=== PATIENT | female | born 1950 | race Caucasian/White ===

== ENCOUNTER → 2017-11-12 15:27 | Outpatient (CLI) | payer MEDICARE, BC, SELFPAY ==
--- NOTE | 2017-11-12 15:33 | HPBI_ITS ---
MAMMOGRAPHY - BILATERAL SCREENING REASON FOR EXAM: Female, 66 years old. Routine annual screening examination. PERTINENT HISTORY: Non-contributory. Prior left axillary node excision due to skin cancer. TECHNIQUE: Digital bilateral breast darcy (3D mammographic acquisition) in the CC and MLO projections. 2-D mediolateral oblique (MLO) and craniocaudad (CC) views of both breasts were obtained. CAD: Full Field Digital Mammography with Computer Added Detection was performed. COMPARISON: Comparison is made with prior study dated August 20, 2016 and August 19, 2015. FINDINGS: Breast Composition: The breasts are heterogeneously dense, which may obscure small masses. There are no dominant masses or suspicious calcifications. There is deformity of the axillary region of the left breast in keeping with the history of left axillary node dissection. Of the left axillary region No other significant abnormalities are identified. HPBI/SCREENING MAMM (CAD), BILAT IMPRESSION: Stable bilateral screening mammogram. Yearly follow-up mammogram recommended. (A) ASSESSMENT CATEGORY: BIRADS Category 2: Benign. A letter regarding these results will be sent to the patient by the facility within 30 days. Approximately 10% of breast cancers are not detected by mammography. A normal mammogram should not delay biopsy of a clinically suspicious abnormality. [id number] Electronically Signed: Sergio Yang MD at 8:12 EDT Tel [phone], Service support ,
== END ==
PROVIDERS: Family Provider Internal Medicine; PCP Internal Medicine; Visit Provider Internal Medicine
DX: Z12.31 Encounter for screening mammogram for malignant neoplasm of breast (principal); Z78.0 Asymptomatic menopausal state
CPT/HCPCS: 77063; 77067

== ENCOUNTER 2017-11-29 07:01 | Day surgery (SDC) | payer MEDICARE, BC, SELFPAY ==
--- NOTE | 2017-11-29 | GASB_PTH ---
PATIENT: NAN BRUSH LOC: EN U#:[id number] AGE/SX: 66/F ROOM: RE11/29/[address]: Dr. Madi Morrell MD : 1950 BED: DIS: 11/29/2017 SPEC #: [id number] RECD: 11/29/17 11:43 STATUS: TOMMY DONTAE #: [id number] TRENA: 11/29/17 00:[address]: Madi Morrell DEPT: SURGICAL PATHOLOGY RECD BY: Akin Dale ENTERED: 11/29/17 11:43 SP TYPE: Gastric Bx OTHR DR: Dr. Nikky Tabor, Tissues: Gastric mucous membrane Procedures: Surgery Specimen Level IV HEADER OPERATION: EGD with biopsy PRE-OP DIAGNOSIS: Eosinophilic esophagitis TISSUE SUBMITTED: Gastric polyp biopsy MICROSCOPIC DIAGNOSIS Gastric polyp, biopsy: Fundic gland polyp. See comment. RIGOBERTO:beba [id number] COMMENT Immunohistochemistry for Helicobacter pylori can be performed if clinically indicated. Please notify the Laboratory if it is needed. MICROSCOPIC DESCRIPTION Slides are reviewed. GROSS DESCRIPTION Received in fixative is one container labeled with the patient's name and designated gastric polyp biopsy. The specimen consists of one irregular fragment of light miguel soft tissue that measures 0.4 x 0.3 x 0.1 cm. The specimen is totally submitted in one cassette. / SJ:beba 11/29/17 TC:5 CPT: 62792
[2017-11-29 07:37] VITALS: BP 140/72; PULSE 71; RESP 16; TEMP 36.8; O2SAT 96; BMI 27.3
--- NOTE | 2017-11-29 09:05 | PCM.OPRPT ---
Problem List (1) Eosinophilic esophagitis Status: Acute (2) Colon cancer screening Status: Acute Report of Operation Date of Procedure: 11/29/17 Pre-Operative Diagnosis: k20.0 eosinophilic esophagitis. z12.11 encounter for screening colonoscopy Post-Operative Diagnosis: 4323 esophagogastroduodenoscopy [place] biopsy. 06[address] colonoscopy Type of Anesthesia:: MAC Description of Procedure: Patient was brought into the endoscopy suite back of her throat was sprayed with Cetacaine spray. She was given a bite-block. She was placed in the left lateral decubitus position. She was given graded anesthesia. Scope was inserted in the back of the oropharynx and directed down through the esophagus into the stomach and into the duodenum without difficulty. Operative findings: 1. Duodenum: Normal appearance no mass lesions no ulcerations no signs of inflammation. Pylorus was completely patent. 2. Stomach: Multiple fundic gland polyps were identified a biopsy of 1 of these was obtained. Rest of the stomach looked normal there was no signs of esophagitis there is no signs of a hiatal hernia. 3. Esophagus: Normal appearance no mass lesions no signs of esophagitis no hiatal hernia Z line was at 39 cm. Colonoscope was inserted into the rectum. The scope was directed through the sigmoid colon, descending colon, transverse colon, ascending colon, to the cecum without difficulty. Operative findings: 1. Cecum: Normal appearance no mass lesions normal ileocecal valve. 2. Ascending colon: Normal appearance no mass lesions. 3. Transverse colon: Normal appearance no mass lesions. 4. Descending colon: Normal appearance no mass lesions. 5. Sigmoid colon: Normal appearance no mass lesions scattered diverticuli were identified. 6. Rectum: Normal appearance no mass lesions retroflexion showed internal hemorrhoids the scope was withdrawn digital rectal exam was performed showing no masses within the anus. Patient will need to have another colonoscopy in 10 years - Admit VTE Documentation VTE Present on Admission: No VTE Mechan Device Prophylaxis: None VTE Pharm Prophylaxis ordered?: No Reason prophylaxis not ordered:: Treatment Not Indicated
[2017-11-29 09:09] VITALS: BP 114/64; BP 140/72; PULSE 73; RESP 18; TEMP 36.6; O2SAT 97
[2017-11-29 09:10] VITALS: BP 119/70; BP 140/72; PULSE 74; RESP 18; O2SAT 98
[2017-11-29 09:15] VITALS: BP 120/66; BP 140/72; PULSE 70; RESP 18; O2SAT 97
[2017-11-29 09:20] VITALS: BP 124/71; BP 140/72; PULSE 64; RESP 18; TEMP 36.7; O2SAT 97
[2017-11-29 09:35] VITALS: BP 140/72
== END 2017-11-29 09:51 | disposition home or self-care (01) ==
LOC: EN 07:02 → AC 07:04
PROVIDERS: Family Provider Internal Medicine; PCP Internal Medicine; Visit Provider Surgery
PROC: 0DJD8ZZ Inspection of Lower Intestinal Tract, Via Natural or Artificial Opening Endoscopic (ICD-10-PCS; CPT 45378; principal; 2017-11-29 08:40)
DX: Z12.11 Encounter for screening for malignant neoplasm of colon (principal); K20.0 Eosinophilic esophagitis; K31.7 Polyp of stomach and duodenum; K64.8 Other hemorrhoids; I10 Essential (primary) hypertension; K21.9 Gastro-esophageal reflux disease without esophagitis; Z78.0 Asymptomatic menopausal state; Z79.899 Other long term (current) drug therapy; Z85.820 Personal history of malignant melanoma of skin
CPT/HCPCS: 43239; G0121; 88305; J7120

== ENCOUNTER → 2018-08-23 10:02 | Outpatient (CLI) | payer MEDICARE, BC, SELFPAY ==
--- NOTE | 2018-08-23 10:08 | BD_ITS ---
STUDY: DUAL ENERGY X-RAY ABSORPTIOMETRY / DXA REASON FOR EXAM: Female, 67 years old. The patient is postmenopausal. No loss of height. TECHNIQUE: Bone Mineral Density (BMD) measurements of lumbar spine and bilateral hips were obtained. COMPARISON: Comparison is made with prior study dated August 20, 2016. FINDINGS: Lumbar Spine (L1-L4): g/cm2 (1.062) / T-score (-0.9) / Z-score (0.7) Findings are suggestive of normal bone density with a low fracture risk. Left Femur Total: g/cm2 (0.936) / T-score (-0.6) / Z-score (0.8) Left Femoral Neck: g/cm2 (0.890) / T-score (-1.1) / Z-score (0.6) Right Femur Total: g/cm2 (0.974) / T-score (-0.3) / Z-score (1.1) Right Femoral Neck: g/cm2 (0.854) / T-score (-1.3) / Z-score (0.3) The T-Scores on the most recent prior examination were: Lumbar Spine (L1-L4): There has been worsening of bone density since the previous examination. Left Femur Total: which represents a worsening of 1.2%. Right Femur Total: which represents a worsening of 1.2%. BD/Dexa Bone Density Study IMPRESSION: The patient is considered osteopenic as outlined below according to World Carroll Organization (WHO) criteria with a low fracture risk. There has been worsening of bone density since the previous examination. Reference Information: The T-score is the number of standard deviations above or below the standard which is normal for young adults at their peak bone mineral density. The World Health Organization (WHO) interprets the T-scores as follows: Above -1 Normal bone density Between -1 and -2.5 Osteopenia Equal to / or below -2.5 Osteoporosis As a practical clinical guideline, osteopenia may be graded as follows: Mild -1 through -1.5 Moderate -1.6 through -2.0 Severe -2.1 through -2.4 The Z-score is the number of standard deviations above or below age-matched controls. A Z-score of less than -1.5 would be considered abnormal. References: 1. NIH Osteoporosis and Related Bone Diseases http://www.osteo.org 2. International Society for Clinical Densitometry http://www.iscd.org 3. National Osteoporosis Foundation http://www.nof.org Electronically Signed: Sergio Yang MD at 14:18 EST Tel [phone], Service support ,
--- OUTSIDE RECORDS SUMMARY | 2018-11-24 17:15 | XMS RPT_ITS | Continuity of Care Document ---
:1950 Author Organization [facility] Address [facility] [address] Phone Care Team Providers Name Role Phone Nikky Tabor DO Unavailable Yoanna NEELY, Onofre Unavailable Nadja NEELY, Madi Zaragoza Unavailable Cece Santillan Unavailable Unavailable RAFAT Rivera Unavailable Unavailable Asuncion PATRICIA, Kasie Unavailable Kathya Deras Unavailable Unavailable Unavailable Unavailable Problems Name Dates Details Acute bronchitis (J20.9, 466.0) Comments: with bronchospasm Status: Active Acute bronchitis due to other specified organisms (J20.8, 466.0) Status: Active BMI 27.0-27.9,adult (Z68.27, V85.23) Status: Active Bronchitis (J40, 490) Comments: august 20 2016: off and on cough, fever(warm) , chills.August 30: cough, getting worse, yellow, some green.Denies fever,SOB, whheze, runny nose, sorethroat, body ache, sinus aches, ear aches, rash, asthma/COPD. Status: Active Cough (R05, 786.2) Status: Active Deliveries (Parity) Comments: 2 Status: Active Encounter for annual general medical examination with abnormal findings in adult (Z00.01, V70.0) Status: Active Encounter for health maintenance examination with abnormal findings (Z00.01, V70.0) Comments: 2-16 new to medicare reviewed with patient all tests, answered all questions, need flu and pneumonia updated, colonoscopy 08-14-14, Mammogram 08-19-15, [facility] Dr. Lovett pelvic , pap was 2013, whisper test WNL, mini mental= 29/30 Status: Active Encounter for screening for malignant neoplasm of colon (Renamed from Special screening for malignant neoplasms, colon) (Z12.11, V76.51) Comments: Dr. Dill did previous colonoscopy and EGD, patient did not want to return there. Included is Dr. Dill's exam from 2013. Status: Active Encounter for screening mammogram for breast cancer (Renamed from Encounter for screening mammogram for malignant neoplasm of breast) (Z12.31, V76.12) Status: Active Eosinophilic esophagitis (K20.0, 530.13) Comments: do EGD q 6yrs- 2011 Status: Active Esophagitis, eosinophilic (K20.0, 530.13) Status: Active External hemorrhoid (K64.4, 455.3) Status: Active Fibromyalgia (M79.7, 729.1) 1996 Comments: pelligreno 3 yrs ago(2014). not anymore Status: Active GERD (gastroesophageal reflux disease) (K21.9, 530.81) Status: Active Hyperglycemia (R73.9, 790.29) Comments: pt currently doing diet and exercise -- cut back alot of flour and sugardo haic later if still up next fu Status: Active Hypertension, benign (I10, 401.1) Comments: does not check BP at home Status: Active Lymphedema, limb (I89.0, 457.1) Comments: stable on left arm Status: Active Need for prophylactic vaccination and inoculation against influenza (Z23, V04.81) Status: Active Need for prophylactic vaccination and inoculation against influenza (Renamed from Need for immunization against influenza) (Z23, V04.81) Status: Active Need for prophylactic vaccination with Streptococcus pneumoniae (Pneumococcus) and Influenza vaccines (Z23, V06.6) Status: Active Nonsmoker (Z78.9, V49.89) Status: Active Post-menopausal (Z78.0, V49.81) Status: Active Pregnancies () Comments: 2 Status: Active Subclinical hypothyroidism (E03.9, 244.8) Status: Active Unspecified Diagnosis Status: Active Unspecified Diagnosis Status: Active Vaginal discharge (N89.8, 623.5) Status: Active Vitamin D deficiency (E55.9, 268.9) Status: Active Medications Name Dates Details Calan SR 180 MG Oral Tablet Extended Release 1 (one) Tablet ER Tablet ER qd for 0 days Quantity: 90 {Tablet} Refills: 3 Ordered:19-May-2018 Kathy Rivera LPN Start : 19-May-2018 Active CALCIUM, 600MG (Oral Tablet) 2 (two) Tablet QD for 0 days Quantity: 60 {Tablet} Refills: 0 Ordered:12-May-2013 Felisha Solorzano MD Start : 12-May-2013 Active Cheratussin AC 100-10 MG/5ML Oral Syrup 4 Milliliter q 6 hr prn for 0 days Quantity: 120 {Milliliter} Refills: 0 Ordered:14-Jun-2018 Samantha Roland CNP Start : 14-Jun-2018 Active Comments:ninety ml Ibuprofen 800 MG Oral Tablet 1 Tablet tid/ prn with food for 90 days Quantity: 180 {Tablet} Refills: 3 Ordered:16-Nov-2017 Conrad Tabor DO, DO, Kathleen Start : 16-Nov-2017 Active Levaquin 500 MG Oral Tablet 1 Tablet QD for 7 days Quantity: 7 {Tablet} Refills: 0 Ordered:14-Jun-2018 Samantha Roland CNP Start : 14-Jun-2018 Active Loratadine 10 MG Oral Tablet 1 (one) Tablet Tablet qd prn for allergies for 0 days Quantity: 30 {Tablet} Refills: 3 Ordered:19-May-2016 Onofre Lenz MD Start : 19-May-2016 Active Omeprazole 40 MG Oral Capsule Delayed Release [address] QD for 90 days Quantity: 90 {Capsule} Refills: 3 Ordered:19-May-2018 Kathy Rivera LPN Start : 19-May-2018 Active PredniSONE 10 MG Oral Tablet 1 Tablet uad for 10 days Quantity: 32 {Tablet} Refills: 0 Ordered:14-Jun-2018 Samantha Roland CNP Start : 14-Jun-2018 Active Comments:3 tablets BID 2 days2 tablet BID x 4 days1 tablet qd x 4 daysthen stop.10 days32 tablets ProAir HFA 108 (90 Base) MCG/ACT Inhalation Aerosol Solution 2 (two) Puff TID for 7 days Quantity: 1 {Inhaler} Refills: 0 Ordered:14-Jun-2018 Asuncion BELEMSamantha Start : 14-Jun-2018 Active SUPER B COMPLEX/VITAMIN C (Oral Tablet) 1 qd Active VITAMIN C, 1000MG (Oral Tablet) 1 QD for 0 days Refills: 0 Ordered:19-Jul-2008 ZEINAB CamachoActive VITAMIN E, 400UNIT (Oral Capsule) 1 (one) Capsule QD for 0 days Quantity: 30 {Capsule} Refills: 0 Ordered:12-May-2013 Felisha Solorzano MD Start : 12-May-2013 Active ANUSOL-HC, 25MG (Rectal Suppository) 1 Suppository as needed for 0 days Quantity: 30 {Suppository} Refills: 0 Ordered:12-May-2013 ZEINAB Camacho Start : 07-Nov-2012 End : 12-May-2013 Inactive Comments:Medication taken as needed. Augmentin 875-125 MG Oral Tablet 1 (one) Tablet two times daily for 7 days Quantity: 14 {Tablet} Refills: 0 Ordered:19-May-2016 Onofre Lenz MD Start : 19-May-2016 End : 26-May-2016 Inactive B complex Inactive Benadryl 25 MG Oral Tablet 1 (one) Tablet daily for 5 days Quantity: 5 {Tablet} Refills: 0 Ordered:04-Aug-2016 Onofre Lenz MD Start : 19-May-2016 End : 24-May-2016 Inactive Biaxin 500 MG Oral Tablet 1 (one) Tablet bid for 0 days Quantity: 20 {Tablet} Refills: 0 Ordered:19-May-2016 June Robertson LPN Start : 07-May-2016 End : 19-May-2016 Inactive Cardizem CD 180 MG Oral Capsule Extended Release 24 Hour 1 Capsule ER 24HR qd for 30 days Quantity: 30 {Capsule} Refills: 3 Ordered:10-Nov-2017 Kathy Rivera LPN Start : 11-Oct-2017 End : 10-Nov-2017 Inactive Cheratussin AC 100-10 MG/5ML Oral Solution 1-2 Teaspoon qhs prn cough for 5 days Quantity: 6 {Ounce} Refills: 0 Ordered:31-Mar-2016 Onofre Lenz MD Start : 31-Mar-2016 End : 05-Apr-2016 Inactive Desloratadine 5 MG Oral Tablet 1 (one) Tablet daily for 30 days Quantity: 30 {Tablet} Refills: 3 Ordered:15-Apr-2016 June Robertson LPN Start : 08-Apr-2016 End : 15-Apr-2016 Inactive DILTIAZEM HCL CR, 180MG (Oral Capsule Extended Release 24 Hour) 1 Capsule ER 24HR qd for 0 days Quantity: 90 {Capsule_ER_24HR} Refills: 3 Ordered:05-Feb-2011 ZEINAB Camacho Start : 03-Feb-2011 End : 05-Feb-2011 Inactive DOXYCYCLINE HYCLATE, 100MG (Oral Tablet Delayed Release) 1 (one) Tablet DR bid for 10 days Quantity: 20 {Tablet} Refills: 0 Ordered:09-Dec-2015 BarbSamantha miller CNP Start : 09-Dec-2015 End : 19-Dec-2015 Inactive Dulera 100-5 MCG/ACT Inhalation Aerosol 1 (one) Aerosol Aerosol bid for 0 days Quantity: 1 {Each} Refills: 0 Ordered:19-May-2018 Kathy Rivera LPN Start : 07-May-2016 End : 19-May-2018 Inactive melatonin Inactive Multivitamin Oral Liquid 1 QD for 0 days Refills: 0 Ordered:08-Apr-2016 June Robertson LPN End : 08-Apr-2016 Inactive NYSTATIN, 615612BEHB/GM (External Cream) 1 Cream bid for 0 days Quantity: 1 {Cream} Refills: 0 Ordered:12-May-2013 ZEINAB Camacho Start : 07-Nov-2012 End : 12-May-2013 Inactive PredniSONE 20 MG Oral Tablet 1 (one) Tablet bid for 2days then qd for 3days 1/2 tab qd for 4days for 9 days Refills: 0 Ordered:07-May-2016 Conrad Tabor DO, DO, Kathleen Start : 07-May-2016 End : 16-May-2016 Inactive PRILOSEC OTC, 20MG (Oral Tablet Delayed Release) [address] qd for 0 days Quantity: 90 {Tablet_DR} Refills: 3 Ordered:12-May-2013 ZEINAB Camacho Start : 21-Jun-2012 End : 12-May-2013 Inactive Comments:uses generic PRILOSEC, 20MG (Oral Capsule Delayed Release) [address] QD for 0 days Quantity: 90 {Capsule_DR} Refills: 0 Ordered:10-Jul-2014 June Robertson LPN Start : 24-Oct-2013 End : 10-Jul-2014 Inactive Promethazine HCl 25 MG Rectal Suppository 1 Suppository every 6 hours prn for 0 days Quantity: 10 {Suppository} Refills: 2 Ordered:19-May-2018 Kathy Rivera LPN Start : 31-Oct-2015 End : 19-May-2018 Inactive Tessalon Perles 100 MG Oral Capsule 1 (one) Capsule Capsule tid for 0 days Quantity: 30 {Capsule} Refills: 0 Ordered:16-Nov-2017 Kathy Rivera LPN Start : 08-Sep-2016 End : 16-Nov-2017 Inactive Transderm-Scop (1.5 MG) 1 MG/3DAYS Transdermal Patch 72 Hour 1 (one) Patch 72HR Patch 72HR 1 patch q 72hrs prn for 0 days Quantity: 7 {Patch} Refills: 0 Ordered:16-Nov-2017 Kathy Rivera LPN Start : 23-Dec-2016 End : 16-Nov-2017 Inactive TRIAMCINOLONE ACETONIDE, 0.1% (External Cream) 1 (one) Cream Cream bid to area for 0 days Quantity: 1 {Tube} Refills: 0 Ordered:31-Oct-2015 ZEINAB Camacho Start : 07-Feb-2015 End : 31-Oct-2015 Inactive Zantac 300 MG Oral Tablet 1 (one) Tablet Tablet bid for 0 days Quantity: 60 {Tablet} Refills: 3 Ordered:08-Apr-2016 June Robertson LPN Start : 31-Oct-2015 End : 08-Apr-2016 Inactive ZITHROMAX Z-LILIANA, 250MG (Oral Tablet) 2 (two) Tablet today then qd for 4 days for 0 days Quantity: 1 {Package} Refills: 0 Ordered:07-Feb-2015 ZEINAB Camacho Start : 01-Feb-2015 End : 07-Feb-2015 Inactive ZyrTEC Allergy 10 MG Oral Capsule 1 (one) Capsule Capsule qd prn for 0 days Quantity: 30 {Capsule} Refills: 0 Ordered:19-May-2018 Kathy Rivera LPN Start : 07-Feb-2015 End : 19-May-2018 Inactive BENZONATATE, 100MG (Oral Capsule) 1 (one) Capsule tid prn for 0 days Quantity: 30 {Capsule} Refills: 0 Ordered:01-Feb-2015 Ashley More LPN Start : 29-Oct-2014 End : 01-Feb-2015 Discontinued DILTIAZEM HCL, 180MG (Oral Capsule Extended Release 24 Hour) 1 Capsule ER 24HR QD for 0 days Quantity: 90 {Capsule_ER_24HR} Refills: 3 Ordered:11-Jun-2009 ZEINAB Camacho Start : 11-Jun-2009 End : 20-Sep-2009 Discontinued Comments:This order discontinued per [employer]. Allergies and Adverse Reactions Name Dates Details Spring & summer hay fever (Allergy) Status: Active Past Medical History Name Dates Details Abnormal TSH (R79.89, 790.6) Status: Inactive as of 16-Nov-2017 Allergic rhinitis (J30.9, 477.9) Status: Inactive as of 21-Mar-2009 Anal burning (569.42) Status: Inactive as of 12-May-2013 Backache (M54.9, 724.5) Comments: Status: Inactive as of 20-Sep-2009 Bee sting reaction (T63.441A, 989.5) Comments: PrednisoneBenadrylcold compressesantibioticIf chest pain, SOB, lightheaded : go to EDlocalized reaction to right had. Was stung last night and took benadryl but flaring again. Gave her childrens malathi tin x 2 for total dose of 10mg at 11:10am. patient confirmed she can tolerate the claritin before given to her PO. -ML, LPNGot stung by yellow jacket on right hand. little finger, very itchy, painful , not getting worse., redness is spreading , swelling has spread since last nightNo SOB or chest pain, lighthededness, diozziness. Status: Inactive as of 02-Nov-2016 BMI 28.0-28.9,adult (Z68.28, V85.24) Status: Inactive as of 16-Nov-2017 Cellulitis (L03.90, 682.9) Status: Inactive as of 02-Nov-2016 Chest pain (R07.9, 786.50) Comments: reveiwed with patient recent tests hospital reports. stress negative. egd positive Status: Inactive as of 07-Feb-2015 Chest pain (R07.9, 786.59) Comments: stress 1-04 good, ?MS Status: Inactive as of 31-Dec-2006 Dermatitis (L30.9, 692.9) Status: Inactive as of 31-Oct-2015 H/O motion sickness (Z87.898, V13.89) Status: Inactive as of 16-Nov-2017 Headache (R51, 784.0) Status: Inactive as of 21-Mar-2009 Hemorrhoids (K64.9, 455.6) Status: Inactive as of 21-Mar-2009 HX, PERSONAL, MALIGNANCY, SKIN MELANOMA (V10.82) Comments: seeing derm regularly Status: Inactive as of 12-May-2013 MALIGNANT MELANOMA, NOS 1985 Status: Inactive as of 21-Jun-2012 Nausea and vomiting in adult (R11.2, 787.01) Comments: episodes. will do GB work up not sound like vertigo at this point. not migraine prodrome. gerd taken care of. ? GB because bilious vomit. will work that up if red flags with this willcall. consider tilt table because at tiems sound vasodepressor like Status: Inactive as of 02-Nov-2016 Neck pain (M54.2, 723.1) Comments: thin OA talk about exercises and stretches and handout given talk about chiropactor. if not help to PT and traction andthen xrays Status: Inactive as of 31-Oct-2015 Poison vikas (L23.7, 692.6) Status: Inactive as of 21-Jun-2012 Rash/skin eruption (R21, 782.1) Comments: steriods help, return after months in face and upper chest but not other sun exposed areas. not sure what contact. no systmeic signs and symptoms. will give solumedrol again and has oral maeve riods. get back to derm Status: Inactive as of 31-Oct-2015 Screening for HPV (human papillomavirus) (Renamed from Encounter for screening for human papillomavirus (HPV)) (Z11.51, V73.81) Status: Inactive as of 16-Nov-2017 Skin tag (L91.8, 701.9) Comments: anal rectal area has apt with Dr. Camarillo at [facility] in December Status: Inactive as of 12-May-2013 Syncope and collapse (R55, 780.2) Status: Inactive as of 20-Jun-2010 Vaginal itching (N89.8, 698.1) Status: Inactive as of 10-Nov-2017 Vaginal odor (N89.8, 625.8) Status: Inactive as of 16-Nov-2017 Vaginal pain (R10.2, 625.9) Status: Inactive as of 16-Nov-2017 Vertigo (R42, 780.4) Comments: think now that talk about how evolve--think BPPV talk about how treat episodes. handout given like phenergan Status: Inactive as of 12-May-2013 Wheeze (R06.2, 786.07) Status: Inactive as of 07-Feb-2015 WWV V73.21 benekos Status: Inactive as of 12-May-2013 WWV-benechos Comments: colonscopy [facility] 2011 Status: Inactive as of 16-Nov-2017 Procedures Procedure Dates Details axillary node dissection Completed Section Completed Comments: X 2 Colonoscopy Completed Comments: 08-14-14 Date Value Details 10-Dec-2017 Operative Report Result: Comments: See Note; NOTES: [facility] Medical Records Department [address] [place] [address] Operative Report 11/29/17 0905 MR#: [id number] Acct: [id number] Name: JAKY BRUSH Rep #: [id number] : 1950 66 From: Madi Morrell MD PCP: Nikky Tabor DO Status: [facility] Location: EN Problem List (1) Eosinophilic esophagitis Status: Acute (2) Colon cancer screenin g Status: Acute Report of Operation Date of Procedure: 11/29/17 Pre-Operative Diagnosis: k20.0 eosinophilic esophagitis. z12.11 encounter for screening colonoscopy Post-Operative Diagnosis: 4323 e sophagogastroduodenoscopy [place]. [address] colonoscopy Type of Anesthesia:: MAC Description of Procedure: Patient was brought into the endoscopy suite back of her throat was sprayed with Cetacaine sp ray. She was given a bite-block. She was placed in the left lateral decubitus position. She was given graded anesthesia. Scope was inserted in the back of the oropharynx and directed down through the es ophagus into the stomach and into the duodenum without difficulty. Operative findings: 1. Duodenum: Normal appearance no mass lesions no ulcerations no signs of inflammation. Pylorus was completely pat ent. 2. Stomach: Multiple fundic gland polyps were identified a biopsy of 1 of these was obtained. Rest of the stomach looked normal there was no signs of esophagitis there is no signs of a hiatal fredrick ia. 3. Esophagus: Normal appearance no mass lesions no signs of esophagitis no hiatal hernia Z line was at 39 cm. Colonoscope was inserted into the rectum. The scope was directed through the sigmoid c olon, descending colon, transverse colon, ascending colon, to the cecum without difficulty. Operative findings: 1. Cecum: Normal appearance no mass lesions normal ileocecal valve. 2. Ascending colon: Normal appearance no mass lesions. 3. Transverse colon: Normal appearance no mass lesions. 4. Descending colon: Normal appearance no mass lesions. 5. Sigmoid colon: Normal appearance no mass lesions scattered diverticuli were identified. 6. Rectum: Normal appearance no mass lesions retroflexion showed internal hemorrhoids the scope was withdrawn digital rectal exam was performed showing no masses within the anus. Patient will need to have another colonoscopy in 10 years - Admit VTE Documentation VTE Present on Admission: No VTE Mechan Device Prophylaxis: None VTE Pharm Prophylaxis ordered?: No Reason prophylaxis not ordered:: Treatment Not Indicated 12/10/17 0940 <Electronically signed by Madi Morrell MD> Date Madi Morrell MD CC: Madi Morrell MD; Nikky Tabor DO Signed 06-Dec-2017 Surgery Visit Report Result: Comments: See Note; NOTES: [facility] [address] [place], [place] [id number] OFFICE VISIT Date of Service: 12/06/17 MR#: [id number] Acct: [id number] Name: JAKY RAM Rep #: [id number] : 1950 Provider: Madi Morrell MD Age/Sex: 66/F Location: [facility] Status: Signed Intake Intake Visit Reasons: F/U EGD AND C-SCOPE 11/29 2017 Chief Complaint: eosi nophilic esophagitis--past due for EGD Wine Sales Representative Required: No Is patient in pain?: No Allergies No Known Allergies Allergy (Verified 12/06/17 08:34) Medications B-complex with vitamin C tablet 2 tab PO QDAY 11/16/17 [History Confirmed 12/06/17] calcium carbonate-vitamin D3 600 mg(1,500 mg)-400 unit chewable tablet 1 tab PO QDAY ea 11/16/17 [History Confirmed 12/06/17] glucosamine HCl 1,500 mg t ablet 1,500 mg PO QDAY 11/16/17 [History Confirmed 12/06/17] omega-3 fatty acids 1,000 mg capsule 1,000 mg PO QDAY 11/16/17 [History Confirmed 12/06/17] omeprazole 40 mg capsule,delayed release 40 mg PO QDAY 11/16/17 [History Confirmed 12/06/17] verapamil ER 180 mg 24 hr capsule,extended release 180 mg PO QDAY 11/16/17 [History Confirmed 12/06/17] PFSH Medical History Fundic gland polyps of stomach, benign (Acute) GERD (gastroesophageal reflux disease) (Acute) History of malignant melanoma (Acute) HTN (hypertension) (Chronic) Surgical History (Review ed 12/06/17 @ 08:33 by Roxane Davis) H/O section (Acute) H/O esophagogastroduodenoscopy (Acute 11/29/17) S/P colonoscopy (Acute 11/29/17) S/P laparoscopic cholecystectomy (Acute) Family Hi story Mother No problems noted. Social History Smoking Status: Never smoker HPI HPI HPI: JAKY BRUSH, is a 66 F who presents to the office today for f ollow-up from both an upper and lower endoscopy completed on 11/29/2017. Patient's upper scope was remarkably clean she had a's fundic gland polyp in her stomach. Her Z line was at 39 cm and the mucosa a ll look normal. There is no signs of hiatal hernia. Her colonoscopy was entirely normal. Patient states that she is on 40 mg of Prilosec a day. He has complete symptom control when she is taking this a nd notices if she misses 2 or 3 days. Exam GI Other: Her abdomen is soft and nontender Assessment AND Plan Problems 1. Eosinophilic esophagitis K20.0 Plan At this point I think the patient will ne ed to have another upper endoscopy in 3 years. I think it is probably rubio for us to keep an eye on her esophagus given the fact that she is on daily doses of Prilosec. Coding Level of Care Code Off v is,est,level 2 Diagnoses Eosinophilic esophagitis K20.0 12/06/17 0854 <Electronically signed by Madi Morrell MD> Date Madi Morrell MD Cosigner Signature: Date (if applicable) CC: Nikky Tabor DO 16-Nov-2017 Surgery Visit Report Result: Comments: See Note; NOTES: [facility] [address] [place] [address] OFFICE VISIT Date of Service: 11/16/17 MR#: [id number] Acct: [id number] Name: JAKY RAM Rep #: [id number] : 1950 Provider: Madi Morrell MD Age/Sex: 66/F Location: [facility] Status: Signed Intake Vital Signs11/16/17 Height 5 ft 2.3 in 11/16/17 Weight: 150 lb 9 oz Body Mass Index (BMI) 27.2 11/16/17 Blood Pressure 149/92 Intake Visit Reasons: Eosinophilic esophagitis and possible cscope Chief Complaint: eosinophilic esophagitis--past due for EGD Wine Sales Representative Required: No Is patient in pain?: No Allergies No Known Allergies Allergy (Verified 11/16/17 09:46) Medications B-complex with vitamin C tablet 2 tab PO QDAY 11/16/17 [History Confirmed 11/16/17] c alcium carbonate-vitamin D3 600 mg(1,500 mg)-400 unit chewable tablet tab PO QDAY ea 11/16/17 [History Confirmed 11/16/17] glucosamine HCl 1,500 mg tablet 1,500 mg PO QDAY 11/16/17 [History Confirmed ] omega-3 fatty acids 1,000 mg capsule 1,000 mg PO QDAY 11/16/17 [History Confirmed 11/16/17] omeprazole 40 mg capsule,delayed release 40 mg PO QDAY 11/16/17 [History Confirmed 11/16/17] verapamil ER 180 mg 24 hr capsule,extended release 180 mg PO QDAY 11/16/17 [History Confirmed 11/16/17] Is last menstrual period known: No Post menopausal: Yes Patient : No PFSH Medical History (Revie wed 11/16/17 @ 09:59 by Madi Morrell MD) GERD (gastroesophageal reflux disease) (Acute) History of malignant melanoma (Acute) HTN (hypertension) (Chronic) Surgical History (Reviewed 11/16/17 @ 09: 59 by Madi Morrell MD) H/O section (Acute) H/O esophagogastroduodenoscopy (Acute) S/P colonoscopy (Acute) S/P laparoscopic cholecystectomy (Acute) Family History (Reviewed 11/16/17 @ 09:5 9 by Madi Morrell MD) Mother No problems noted. Social History Smoking Status: Never smoker HPI HPI HPI: JAKY BRUSH, is a 66 F who presents to the office today for evaluation for both an upp er and lower endoscopy. Patient has had an endoscopy in the past and she is not quite sure how long that she knows it has been more than 5 years where she had an upper scope with biopsies to show eosino philic esophagitis. Since then she has been placed on 40 mg of Prilosec. This medication has kept her symptoms at bay and she really does not have any true problems with heartburn. However if she misses her medication she does notice it. She has not had any upper endoscopies for greater than 5 years. Patient states that she has not had a colonoscopy for longer than 10 years. She states that her bowel movements are loose on occasion but she has not noticed any blood she is not noticing any abdominal pain or abdominal bloating. She presents here for evaluation for both an upper and lower scope. R OS General General: No weight change, appetite, fatigue, colon cancer, breast cancer or weakness Additional Details: history of malignant melanoma left scapula Endo Endocrine: No thyroid disease, diabet es mellitus, thyroid cancer, Hair loss, heat intolerance or cold intolerance Skin Skin: No rash or changing moles Breast Breast: No left breast lump, right breast lump, nipple discharge, breast pain, ab normal mammogram, abnormal US or breast enlargement Musc Musculoskeletal: No back problems, arthritis, rheumatoid arthritis, gout or joint pain Cardio Cardiovascular: Yes high blood pressure; no murmur, pacemaker, heart disease, atrial fibrillation, heart attack, heart stent, palpitations, shortness of breat with exertion or chest pain Psych Psychiatric: No depression, anxiety or hearing voices Resp R espiratory: No shortness of breath, No sleep apnea, No cough, No COPD, No asthma, No emphysema, No wheezing Gastro Gastrointestinal: No abdominal pain, No nausea or vomiting, No diarrhea, No constipatio n, No blood in stool, Yes acid reflux, No hemorrhoids, No ulcers, No gallbladder problem, No black,tarry stools Sachin Hematologic: No blood thinners, No blood disorders, No bleeding, No anemia, No blood clots Neuro Neurologic: No system reviewed and no additional complaints, except as docu, No as per HPI, No abnormal walking, No abnormal hearing, No abnormal movements, No abnormal speech, No behavioral changes, No burning sensations, No confusion, No seizure-like activity, No unsteadiness, No dizziness, No localized weakness, No frequent falls, No headache(s), No lack of coordination, No loss of visi on, No memory loss, No numbness, No other visual disturbances, No radiating pain, No restless legs, No sensory deficit, No fainting, No tingling, No tremor(s), No weakness, No other Exam Const General : well developed, no acute distress, well hydrated Orientation: oriented to person, oriented to place, oriented to time [facility] Head: normocephalic, atraumatic Ears: external ears normal Mouth: moist muco us membranes Eyes Sclera: sclerae normal Pupils: normal by confrontation Neck Neck: no lymphadenopathy noted Neck mass: No Thyroid: symmetrical, thyroid normal Chest Chest palpation AND inspection: norm al inspection of the chest Breast Palpation: No nipple discharge Resp Effort AND Inspection: normal respiratory effort Auscultation: clear to auscultation bilaterally Percussion: percussion normal Cardi o Rate: regular rate Rhythm: regular rhythm Heart Sounds: no murmurs GI Palpation: soft, no masses, no hepatosplenomegaly, nontender Rectal Exam: other Other: Rectal exam deferred. Extrem General: no cl ubbing, cyanosis or edema, normal to inspection Assessment AND Plan Problems 1. Eosinophilic esophagitis K20.0 2. Encounter for screening colonoscopy Z12.11 Plan I have discussed the above with the p atient. I have offered the patient colonoscopy as well as an esophagogastroduodenoscopy with esophageal biopsies for evaluation. I have explained the risks/benefits of the procedure and described the pr ocedure. I have discussed the risks with the patient, including but not limited to: infection, bleeding, perforation of the GI tract requiring emergency surgery, inability to complete the procedure, inj ury to any internal organs, complications of anesthesia, etc. - the patient understands and agrees to proceed. I have answered all the patient's questions to the patient's satisfaction and the patient h as no further questions. The patient has been given instructions for the colon cleansing preparation. Coding Level of Care Code Off vis,new,level 3 Diagnoses Eosinophilic esophagitis K20.0 Encounter for screening colonoscopy Z12.11 11/16/17 1001 <Electronically signed by Madi Morrell MD> Date Madi Tobiasigner Signat ure: Date (if applicable) CC: Nikky Tabor DO 12-Nov-2017 SCREENING MAMM (CAD), BILAT Result: Comments: See Note; NOTES: [facility] [address] [place] [address] SCREENING MAMM (CAD), BILAT MR#: [id number] Acct: [id number] Name: JAKY BRUHS Rep #: [id number] : 1950 F 66 From: Sergio Yang MD PCP: Nikky Tabor DO Status: REG CLI Study: SCREENING MAMM (CAD), BILAT Date of Exam: 11/12/17 Exam# [id number] Ordering Dr: Nikky Tabor DO MAMMOGRAPHY - BILATERAL SCREENING REASON FOR EXAM: Female, 66 years old. Routine annual screening examination. PERTINENT HISTORY: Non-contributory. Prior left axillary node excision due to skin c ancer. TECHNIQUE: Digital bilateral breast darcy (3D mammographic acquisition) in the CC and MLO projections. 2-D mediolateral oblique (MLO) and craniocaudad (CC) views of both breasts were obtained. CA D: Full Field Digital Mammography with Computer Added Detection was performed. COMPARISON: Comparison is made with prior study dated August 20, 2016 and August 19, 2015. FINDINGS: Breast Composition: The breasts are heterogeneously dense, which may obscure small masses. There are no dominant masses or suspicious calcifications. There is deformity of the axill maegan region of the left breast in keeping with the history of left axillary node dissection. Of the left axillary region No other significant abnormalities are identified. HPBI/SCREENING MAMM (CAD), BILAT IMPRESSION: Stable bilateral screening mammogram. Yearly follow-up mammogram recommended. (A) ASSESSMENT CATEGORY: BIRADS Category 2: Benign. A letter regarding these results will be sent to the patient by the facility within 30 days. Approximately 10% of breast cancers are not detected by mammography. A normal mammogram should not delay biopsy of a clinically suspicious abnormality. [id number] Electronically Signed: Sergio Yang MD at 8:12 EDT Tel [phone], Service support [phone], CC: Nikky Tabor DO Fitness Manager: Signed 20-Aug-2016 Bilat Scrn Digital AND CAD Result: Comments: See Note; NOTES: [facility] [address] [place] [address] Ver[place]ren 4d Bilat Scrn Digital AND CAD MR#: [id number] Acct: [id number] Name: JAKY BRUSH Rep #: [id number] : 1950 F 65 From: Sergio Yang MD PCP: Onofre Lenz Status: REG CLI Study: Bilat Scrn Digital AND CAD Date of Exam: 08/20/16 Exam# [id number] Ordering Dr: Onofre Lenz MAMMOGRAPHY - BILATERAL SCREENING REASON FOR EXAM: Female, 65 years old. Routine annual screening examination. PERTINENT HISTORY: Non-contributory. TECHNIQUE: Digital bilateral breast darcy (3D mammog raphic acquisition) in the CC and MLO projections. 2-D mediolateral oblique (MLO) and craniocaudad (CC) views of both breasts were obtained. CAD: Full Field Digital Mammography with Computer Added Detec tion was performed. COMPARISON: Comparison is made with prior study dated August 19, 2015 and August 16, 2014. FINDINGS: Breast Composition: The breasts are het erogeneously dense, which may obscure small masses. There are no dominant masses or suspicious calcifications. No other significant abnormalities are identified. There has been no significant change s joelle the prior study. HPBI/Bilat Scrn Digital AND CAD IMPRESSION: Stable bilateral screening mammogram. Yearly follow-up mammogram recommended. ( A) ASSESSMENT CATEGORY: BIRADS Category 1: Negative. A letter regarding these results will be sent to the patient by the facility within 30 days. Approximately 10% of breast cancers are not detected by mammography. A normal mammogram should not delay biopsy of a clinically suspicious abnormality. [id number] Electronically Signed: Sergio Yang MD a t 11:03 EST Tel [phone], Service support [phone], CC: Onofre Lenz Fitness Manager: Signed 20-Aug-2016 Dexa Bone Density Study (HP) Result: Comments: See Note; NOTES: [facility] [address] [place] [address] Verdana 4d Dexa Bone Density Study (HP) MR#: [id number] Acct: [id number] Name: JAKY BRUSH Rep #: [id number] : 1950 F 65 From: Sergio Yang MD PCP: Onofre Lenz Status: REG CLI Study: Dexa Bone Density Study (HP) Date of Exam: 08/20/16 Exam# [id number] Ordering Dr: Bear Lenz STUDY: DUAL ENERGY X-RAY ABSORPTIOMETRY / DXA REASON FOR EXAM: Female, 65 years old. The patient is postmenopausal. TECHNIQUE: Bone Mineral Density (BMD) measurements of lumbar spine and bilateral hips were obtained. COMPARISON: Comparison is made with prior study dated July 28, 2011. FINDINGS: Lumbar Spine (L1-L4): g/cm2 (1.087) / T-score (-0.7) / Z-sc ore (0.9) Findings are suggestive of normal bone density with a low fracture risk. Left Femur Total: g/cm2 (0.947) / T-score (0.5) / Z-score (0.8) Left Femoral Neck: g/cm2 (0.852) / T-score (-1.3) / Z- score (0.2) Right Femur Total: g/cm2 (0.986) / T-score (-0.2) / Z-score (1.1) Right Femoral Neck: g/cm2 (0.875) / T-score (-1.2) / Z-score (0.4) The T-Scores on the most recent prior examination were: Lumbar Spine (L1-L4): There has been worsening of bone density since the previous examination. Left Femur Total: which represents a worsening of 3.5%. Right Femur Total: which represents a worsening o f 2.0%. HPBD/Dexa Bone Density Study (HP) IMPRESSION: The patient is considered osteopenic as outlined below according to [employer] (WHO) criteria with a moderate fracture risk. There has been worsening of bone density since the previous examination. Reference Information: The T-score is the n umber of standard deviations above or below the standard which is normal for young adults at their peak bone mineral density. The World Health Organization (WHO) interprets the T-scores as follows: Abo ve -1 Normal bone density Between -1 and -2.5 Osteopenia Equal to / or below - 2.5 Osteoporosis As a practical clinical guideline, osteopenia may be graded as follows: Mild -1 through -1.5 Moderate -1.6 through -2.0 Severe -2.1 through -2.4 The Z-score is the number of standard deviations above or below age-matched controls. A Z-score of less than -1.5 would be considered abnormal. References: 1. NI H Osteoporosis and Related Bone Diseases http://www.osteo.org 2. International Society for Clinical Densitometry http://www.iscd.org 3. National Osteoporosis Foundation http://www.nof.org Electronicall y Signed: Sergio Yang MD at 12:46 EST Tel [phone], Service support [phone], CC: Onofre Lenz Fitness Manager: Signed 08-Apr-2016 Spirometry (66865) Result: 31-Mar-2016 Spirometry (69289) Result: 08-Nov-2015 Gallbladder Result: Comments: See Note; NOTES: [facility] [address] [place] [address] Addiena 4d Gallbladder MR#: [id number] Acct: [id number] Name: JAKY BRUSH #: [id number] : 1950 F 64 From: Sergio Yang MD PCP: Felisha Solorzano MD Status: REG CLI Study: Gallbladder Date of Exam: 11/08/15 Exam# [id number] Ordering Dr: Felisha Solorzano MD ESA DY: ABDOMINAL ULTRASOUND - RIGHT UPPER QUADRANT REASON FOR VISIT: Female, 64 years old. 2 year history of nausea and vomiting. TECHNIQUE: Ultrasound evaluation of the right upper quadrant was perf ormed with real-time and static rivero-scale imaging. TECHNICAL QUALITY: Adequate. COMPARISON: None. FINDINGS: Liver: The liver measures 15.3 cm. There is incr eased echogenicity consistent with fatty infiltration. The bile ducts are within normal limits. There is hepatic color flow. The direction of portal flow is hepatopetal. There is no demonstrated mass lesion. Gallbladder: Normal distended gallbladder. The gallbladder wall measures 2.9 mm. There is a positive sonographic Carter's sign. There is no pericholecystic fluid. There are multiple echogen ic structures within the gallbladder, consistent with multiple gallstones. A small amount of sludge is seen within the gallbladder lumen as well. Common Bile Duct (C.B.D.): The common bile duct papo ures 3.5 mm. Pancreas: Normal size of the head, body and tail of the pancreas. There is normal echogenicity of the pancreas. There is no demonstrated pancreatic mass or cyst. Right Kidney: Normal size of the right kidney. The right kidney measures 10.7 cm x 6.2 cm x 6.2 cm. Normal renal cortex. The right cortex measures 1.6 cm. There is a 2.5 cm x 2.4 cm x 2.6 cm cyst. There is no right hydro nephrosis. IMPRESSION: Multiple gallstones and sludge within the gallbladder lumen. Fatty infiltration of the liver. Right renal cyst . Electronically Kina d: Sergio Yang MD at 9:51 EST Tel [phone], Service support [phone], CC: Felisha Solorzano MD Fitness Manager: Signed 19-Aug-2015 Bilat Scrn Digital AND CAD Result: Comments: See Note; NOTES: [facility] [address] [place] [address] Verdana 4d Bilat Scrn Digital AND CAD MR#: [id number] Acct: [id number] Name: JAKY BRUSH Rep #: [id number] : 1950 F 64 From: Sergio Yang MD PCP: Felisha Solorzano MD Status: REG CLI Study: Bilat Scrn Digital AND CAD Date of Exam: 08/19/15 Exam# [id number] Samra daniels Dr: Melvi Lovett MD MAMMOGRAPHY - BILATERAL SCREENING REASON FOR EXAM: Female, 64 years old. Routine annual screening examination. PERTINENT HISTORY: Non-contributory. TECHNIQUE: Digital examination. Mediolateral oblique (MLO) and craniocaudad (CC) views of both breasts were obtained. CAD: CAD was performed on this study. COMPARISON: Comparison is made with prior study dated 2013 and August 07, 2013. FINDINGS: Breast Composition: The breasts are heterogeneously dense, which may obscure small masses. There are no dominant ma sses or suspicious calcifications. No other significant abnormalities are identified. There has been no significant change since the prior study. IMPRESSION: S table bilateral screening mammogram. Yearly follow-up recommended. (A) ASSESSMENT CATEGORY: BIRADS Category 1: Negative. A letter regarding these results will be sent to the patient by the facility within 30 days. Approximately 10% of breast cancers are not detected by mammography. A normal mammogram should not delay biopsy of a clinically suspicious abnor mality. [id number] Electronically Signed: Sergio Yang MD at 11:23 EST Tel [phone], Service support [phone], CC: Felisha Solorzano MD; Melvi Lovett MD Fitness Manager: Signed 29-Oct-2014 Spirometry (18112) Comments: good effort and curve normal Result: 16-Aug-2014 Bilat Scrn Digital AND CAD Result: Comments: See Note; NOTES: [facility] [address] [place] [address] Breast Imaging Report MR#: [id number] Acct: [id number] Name: JAKY BRUSH Rep #: [id number] : 1950 F 63 From: Sergio Yang MD PCP: Felisha Solorzano MD Status: REG CLI Study: Bilat Scrn Digital AND CAD Date of Exam: 08/16/14 Exam# [id number] Ordering Dr: Melvi Lovett MD MAMMOGRAPHY - BILATERAL SCREENING REASON FOR EXAM: Female, 63 years old. Routine annual screening examination. PERTINENT HISTORY: Non-contributory. TECHNIQUE: Digital examination. Mediolateral oblique (MLO) and craniocaudad (CC) views of both breasts were obtained. CAD: CAD was performed on this study. COMPARISON: Comparison is made with prior study dated August 07, 2013 and July 092011. FINDINGS: Breast Composition: The breasts are heterogeneously dense, which may obscure small masses. There are no dominant masses or suspicious calcif ications. No other significant abnormalities are identified. There has been no significant change since the prior study. IMPRESSION: Stable bilateral screening mammogram. Yearly follow-up recommended. (A) ASSESSMENT CATEGORY: BIRADS Category 2: Benign. A letter regarding these results will be sent to the patient by the facility within 30 days. Approximately 10% of breast cancers are not detected by mammography. A normal mammogram should not delay biopsy of a clinically suspicious abnormality. Electronically Sig sherrie: Sergio Yang MD at 8:57 EST Tel [phone], Service support [phone], CC: Felisha Solorzano MD; Melvi Lovett MD Fitness Manager: Signed Immunization Name Dates Details Influenza (3 years and up) on: 04-Jul-2007 Td (7 years and up) on: 31-Dec-2006 Family History Unknown Family Member Name Dates Details First Degree Relatives Comments: ETOH, Heart/Lung disease, HBP Status: Active Social History Name Dates Details Caffeine Use Comments: 3 cola QD Status: Active Current Work/Study Status Comments: Retired Status: Active Exercise History Comments: 30 mins 3 X a week Status: Active Living Situation Comments: , heterosexual Status: Active No Drug Use Status: Active Non Drinker/No Alcohol Use Status: Active Non Smoker/No Tobacco Use Status: Active Tobacco use: Never smoker. Status: Active Smoking Status Name Dates Details Never smoker Vital Signs Date Test Result Details :53 Temperature 97.9 f Comments: Method: Temporal Pulse 94 /min Comments: Pattern: Regular Respiration Rate 18 /min Comments: Pattern: Unlabored O2 SAT 92 % Comments: Room air BP Systolic 132 mm[Hg] Comments: Patient Position: Sitting; Cuff Location: Left Arm; Cuff Size: Standard BP Diastolic 82 mm[Hg] Comments: Patient Position: Sitting; Cuff Location: Left Arm; Cuff Size: Standard Weight 154.25 lb Height 63 in Body Mass Index Calculated 27.32 kg/m2 Body Surface Area Calculated 1.73 m2 :12 Temperature 95.7 f Comments: Method: Temporal Pulse 69 /min Comments: Pattern: Regular Respiration Rate 16 /min Comments: Pattern: Unlabored O2 SAT 97 % Comments: Room air BP Systolic 120 mm[Hg] Comments: Patient Position: Sitting; Cuff Location: Left Arm; Cuff Size: Large BP Diastolic 82 mm[Hg] Comments: Patient Position: Sitting; Cuff Location: Left Arm; Cuff Size: Large Weight 154 lb Height 63 in Body Mass Index Calculated 27.28 kg/m2 Body Surface Area Calculated 1.73 m2 [id number] Pulse 70 /min Comments: Pattern: Regular Respiration Rate 18 /min Comments: Pattern: Unlabored O2 SAT 98 % Comments: Room air BP Systolic 122 mm[Hg] Comments: Patient Position: Sitting; Cuff Location: Left Arm; Cuff Size: Large BP Diastolic 80 mm[Hg] Comments: Patient Position: Sitting; Cuff Location: Left Arm; Cuff Size: Large Weight 152.375 lb Height 63 in Body Mass Index Calculated 26.99 kg/m2 Body Surface Area Calculated 1.72 m2 :31 Comments: hearing Basilio and had a glaucoma test [id number] Pulse 98 /min Comments: Pattern: Regular Respiration Rate 18 /min Comments: Pattern: Unlabored O2 SAT 97 % Comments: Room air BP Systolic 142 mm[Hg] Comments: Patient Position: Sitting; Cuff Location: Left Arm; Cuff Size: Standard BP Diastolic 88 mm[Hg] Comments: Patient Position: Sitting; Cuff Location: Left Arm; Cuff Size: Standard Weight 153 lb Height 63 in Body Mass Index Calculated 27.1 kg/m2 Body Surface Area Calculated 1.73 m2 :07 Comments: hearing wnlDr. Gibbs and had a glaucoma test done Pulse 77 /min Comments: Pattern: Regular Respiration Rate 18 /min Comments: Pattern: Unlabored O2 SAT 94 % Comments: Room air BP Systolic 120 mm[Hg] Comments: Patient Position: Sitting; Cuff Location: Left Arm; Cuff Size: Standard BP Diastolic 78 mm[Hg] Comments: Patient Position: Sitting; Cuff Location: Left Arm; Cuff Size: Standard Weight 159 lb Height 63 in Body Mass Index Calculated 28.17 kg/m2 Body Surface Area Calculated 1.75 m2 :59 Temperature 97.7 f Comments: Method: Tympanic Pulse 82 /min Comments: Pattern: Regular Respiration Rate 18 /min Comments: Pattern: Unlabored O2 SAT 95 % Comments: Room air BP Systolic 136 mm[Hg] Comments: Patient Position: Sitting; Cuff Location: Left Arm; Cuff Size: Standard BP Diastolic 78 mm[Hg] Comments: Patient Position: Sitting; Cuff Location: Left Arm; Cuff Size: Standard Weight 159 lb Height 63 in Body Mass Index Calculated 28.17 kg/m2 Body Surface Area Calculated 1.75 m2 :57 Temperature 97.8 f Comments: Method: Temporal Pulse 88 /min Comments: Pattern: Regular Respiration Rate 16 /min Comments: Pattern: Unlabored O2 SAT 98 % Comments: Room air BP Systolic 120 mm[Hg] Comments: Patient Position: Sitting; Cuff Location: Left Arm; Cuff Size: Standard BP Diastolic 84 mm[Hg] Comments: Patient Position: Sitting; Cuff Location: Left Arm; Cuff Size: Standard Weight 159 lb Height 63 in Body Mass Index Calculated 28.17 kg/m2 Body Surface Area Calculated 1.75 m2 :30 Temperature 97.1 f Comments: Method: Temporal Pulse 82 /min Comments: Pattern: Regular Respiration Rate 18 /min Comments: Pattern: Unlabored O2 SAT 97 % Comments: Room air BP Systolic 138 mm[Hg] Comments: Patient Position: Sitting; Cuff Location: Left Arm; Cuff Size: Large BP Diastolic 84 mm[Hg] Comments: Patient Position: Sitting; Cuff Location: Left Arm; Cuff Size: Large Weight 157 lb Height 63 in Body Mass Index Calculated 27.81 kg/m2 Body Surface Area Calculated 1.74 m2 :58 Temperature 98.1 f Pulse 16 /min Comments: Pattern: Regular Respiration Rate 16 /min Comments: Pattern: Unlabored O2 SAT 95 % Comments: Room air BP Systolic 122 mm[Hg] Comments: Patient Position: Sitting; Cuff Location: Left Arm; Cuff Size: Standard BP Diastolic 74 mm[Hg] Comments: Patient Position: Sitting; Cuff Location: Left Arm; Cuff Size: Standard Weight 157 lb Height 63 in Body Mass Index Calculated 27.81 kg/m2 Body Surface Area Calculated 1.74 m2 :23 Temperature 97.2 f Comments: Method: Temporal Pulse 75 /min Comments: Pattern: Regular Respiration Rate 16 /min Comments: Pattern: Unlabored O2 SAT 97 % Comments: Room air BP Systolic 134 mm[Hg] Comments: Patient Position: Sitting; Cuff Location: Left Arm; Cuff Size: Standard BP Diastolic 80 mm[Hg] Comments: Patient Position: Sitting; Cuff Location: Left Arm; Cuff Size: Standard Weight 156 lb Height 63 in Body Mass Index Calculated 27.63 kg/m2 Body Surface Area Calculated 1.74 m2 :51 Temperature 97.2 f Comments: Method: Tympanic Pulse 89 /min Comments: Pattern: Regular Respiration Rate 18 /min Comments: Pattern: Unlabored O2 SAT 97 % Comments: Room air BP Systolic 150 mm[Hg] Comments: Patient Position: Sitting; Cuff Location: Left Arm; Cuff Size: Standard BP Diastolic 86 mm[Hg] Comments: Patient Position: Sitting; Cuff Location: Left Arm; Cuff Size: Standard Weight 156 lb Height 63 in Body Mass Index Calculated 27.63 kg/m2 Body Surface Area Calculated 1.74 m2 :55 Temperature 97.9 f Comments: Method: Temporal Pulse 68 /min Comments: Pattern: Regular Respiration Rate 18 /min Comments: Pattern: Unlabored O2 SAT 95 % Comments: Room air BP Systolic 130 mm[Hg] Comments: Patient Position: Sitting; Cuff Location: Left Arm; Cuff Size: Standard BP Diastolic 80 mm[Hg] Comments: Patient Position: Sitting; Cuff Location: Left Arm; Cuff Size: Standard Weight 157 lb Height 63 in Body Mass Index Calculated 27.81 kg/m2 Body Surface Area Calculated 1.74 m2 :23 Pulse 69 /min Comments: Pattern: Regular Respiration Rate 16 /min Comments: Pattern: Unlabored O2 SAT 97 % Comments: Room air BP Systolic 122 mm[Hg] Comments: Patient Position: Sitting; Cuff Location: Left Arm; Cuff Size: Standard BP Diastolic 70 mm[Hg] Comments: Patient Position: Sitting; Cuff Location: Left Arm; Cuff Size: Standard Weight 151 lb Height 63 in Body Mass Index Calculated 26.75 kg/m2 Body Surface Area Calculated 1.72 m2 :00 Temperature 97.5 f Comments: Method: Temporal Pulse 68 /min Comments: Pattern: Regular Respiration Rate 16 /min Comments: Pattern: Unlabored BP Systolic 118 mm[Hg] Comments: Patient Position: Sitting; Cuff Location: Left Arm; Cuff Size: Standard BP Diastolic 82 mm[Hg] Comments: Patient Position: Sitting; Cuff Location: Left Arm; Cuff Size: Standard Weight 151 lb Height 63 in Body Mass Index Calculated 26.75 kg/m2 Body Surface Area Calculated 1.72 m2 :36 Temperature 97.6 f Comments: Method: Temporal Pulse 84 /min Comments: Pattern: Regular Respiration Rate 18 /min Comments: Pattern: Unlabored O2 SAT 97 % Comments: Room air BP Systolic 140 mm[Hg] Comments: Patient Position: Sitting; Cuff Location: Left Arm; Cuff Size: Standard BP Diastolic 80 mm[Hg] Comments: Patient Position: Sitting; Cuff Location: Left Arm; Cuff Size: Standard Weight 154 lb Height 63 in Body Mass Index Calculated 27.28 kg/m2 Body Surface Area Calculated 1.73 m2 :25 Temperature 97.8 f Pulse 78 /min Comments: Pattern: Regular Respiration Rate 18 /min Comments: Pattern: Unlabored O2 SAT 94 % Comments: Room air BP Systolic 142 mm[Hg] Comments: Patient Position: Sitting; Cuff Location: Left Arm; Cuff Size: Standard BP Diastolic 88 mm[Hg] Comments: Patient Position: Sitting; Cuff Location: Left Arm; Cuff Size: Standard Weight 159 lb Height 63 in Body Mass Index Calculated 28.17 kg/m2 Body Surface Area Calculated 1.75 m2 :01 Temperature 98.4 f Pulse 76 /min Comments: Pattern: Regular Respiration Rate 16 /min Comments: Pattern: Unlabored BP Systolic 138 mm[Hg] Comments: Patient Position: Sitting; Cuff Location: Left Arm; Cuff Size: Large BP Diastolic 82 mm[Hg] Comments: Patient Position: Sitting; Cuff Location: Left Arm; Cuff Size: Large Weight 159 lb Height 63 in Body Mass Index Calculated 28.17 kg/m2 Body Surface Area Calculated 1.75 m2 :27 Temperature 97.8 f Comments: Method: Temporal Pulse 65 /min Comments: Pattern: Regular Respiration Rate 15 /min Comments: Pattern: Unlabored O2 SAT 97 % Comments: Room air BP Systolic 130 mm[Hg] Comments: Patient Position: Sitting; Cuff Location: Left Arm; Cuff Size: Standard BP Diastolic 74 mm[Hg] Comments: Patient Position: Sitting; Cuff Location: Left Arm; Cuff Size: Standard Weight 159 lb Height 63 in Body Mass Index Calculated 28.17 kg/m2 Body Surface Area Calculated 1.75 m2 :35 Temperature 97.8 f Comments: Method: Oral Pulse 68 /min Comments: Pattern: Regular Respiration Rate 18 /min Comments: Pattern: Unlabored BP Systolic 124 mm[Hg] Comments: Patient Position: Sitting; Cuff Location: Left Arm; Cuff Size: Standard BP Diastolic 74 mm[Hg] Comments: Patient Position: Sitting; Cuff Location: Left Arm; Cuff Size: Standard Weight 159 lb Height 63 in Body Mass Index Calculated 28.17 kg/m2 Body Surface Area Calculated 1.75 m2 :11 Temperature 98 f Comments: Method: Oral Pulse 66 /min Comments: Pattern: Regular Respiration Rate 16 /min BP Systolic 124 mm[Hg] Comments: Patient Position: Sitting; Cuff Location: Left Arm; Cuff Size: Standard BP Diastolic 78 mm[Hg] Comments: Patient Position: Sitting; Cuff Location: Left Arm; Cuff Size: Standard Weight 161 lb Height 63 in Body Mass Index Calculated 28.52 kg/m2 Body Surface Area Calculated 1.76 m2 :35 Temperature 96.7 f Comments: Method: Oral Pulse 72 /min Comments: Pattern: Regular Respiration Rate 16 /min Comments: Pattern: Unlabored BP Systolic 122 mm[Hg] Comments: Patient Position: Sitting; Cuff Location: Left Arm; Cuff Size: Standard BP Diastolic 72 mm[Hg] Comments: Patient Position: Sitting; Cuff Location: Left Arm; Cuff Size: Standard Weight 161 lb Height 63 in Body Mass Index Calculated 28.52 kg/m2 Body Surface Area Calculated 1.76 m2 :28 Temperature 98.1 f Comments: Method: Oral Pulse 66 /min Comments: Pattern: Regular Respiration Rate 16 /min Comments: Pattern: Unlabored BP Systolic 126 mm[Hg] Comments: Patient Position: Sitting; Cuff Location: Left Arm; Cuff Size: Standard BP Diastolic 80 mm[Hg] Comments: Patient Position: Sitting; Cuff Location: Left Arm; Cuff Size: Standard Weight 143 lb Height 63 in Body Mass Index Calculated 25.33 kg/m2 Body Surface Area Calculated 1.68 m2 :14 Temperature 97.6 f Comments: Method: Oral Pulse 70 /min Comments: Pattern: Regular Respiration Rate 18 /min Comments: Pattern: Unlabored BP Systolic 120 mm[Hg] Comments: Patient Position: Sitting; Cuff Location: Left Arm; Cuff Size: Standard BP Diastolic 78 mm[Hg] Comments: Patient Position: Sitting; Cuff Location: Left Arm; Cuff Size: Standard Weight 143 lb :16 Temperature 98.2 f Comments: Method: Oral Pulse 74 /min Comments: Pattern: Regular Respiration Rate 18 /min Comments: Pattern: Unlabored BP Systolic 116 mm[Hg] Comments: Patient Position: Sitting; Cuff Location: Left Arm; Cuff Size: Standard BP Diastolic 76 mm[Hg] Comments: Patient Position: Sitting; Cuff Location: Left Arm; Cuff Size: Standard :15 Temperature 97.8 f Comments: Method: Oral Pulse 74 /min Comments: Pattern: Regular Respiration Rate 18 /min Comments: Pattern: Unlabored BP Systolic 122 mm[Hg] Comments: Patient Position: Sitting; Cuff Location: Left Arm; Cuff Size: Standard BP Diastolic 78 mm[Hg] Comments: Patient Position: Sitting; Cuff Location: Left Arm; Cuff Size: Standard :28 Pulse 68 /min Comments: Pattern: Regular Respiration Rate 16 /min Comments: Pattern: Unlabored BP Systolic 118 mm[Hg] Comments: Patient Position: Sitting; Cuff Location: Left Arm; Cuff Size: Standard BP Diastolic 78 mm[Hg] Comments: Patient Position: Sitting; Cuff Location: Left Arm; Cuff Size: Standard Weight 157 lb :37 Temperature 98.6 f Comments: Method: Oral Pulse 70 /min Comments: Pattern: Regular Respiration Rate 16 /min Comments: Pattern: Unlabored BP Systolic 120 mm[Hg] Comments: Patient Position: Sitting; Cuff Location: Left Arm; Cuff Size: Standard BP Diastolic 80 mm[Hg] Comments: Patient Position: Sitting; Cuff Location: Left Arm; Cuff Size: Standard Weight 157 lb Height 0 in Head Circumference 0.00 cm :12 Temperature 98.7 f Comments: Method: Oral Pulse 64 /min Comments: Pattern: Regular Respiration Rate 18 /min Comments: Pattern: Unlabored BP Systolic 122 mm[Hg] Comments: Patient Position: Sitting; Cuff Location: Left Arm; Cuff Size: Standard BP Diastolic 78 mm[Hg] Comments: Patient Position: Sitting; Cuff Location: Left Arm; Cuff Size: Standard Weight 146 lb Height 0 in Head Circumference 0.00 cm :17 Temperature 98.5 f Comments: Method: Oral Pulse 64 /min Comments: Pattern: Regular Respiration Rate 16 /min Comments: Pattern: Unlabored BP Systolic 132 mm[Hg] Comments: Patient Position: Sitting; Cuff Location: Right Arm; Cuff Size: Standard BP Diastolic 86 mm[Hg] Comments: Patient Position: Sitting; Cuff Location: Right Arm; Cuff Size: Standard Weight 154 lb Height 62.5 in Body Mass Index Calculated 27.72 kg/m2 Body Surface Area Calculated 1.72 m2 Head Circumference 0.00 cm Results Date Description Value Details [id number]:51 Microscopic Examination Comments: PATIENT NOT FASTINGPERFORMED BY: RUTH [facility] Edvfqm[address] [place] [id number] Bacteria None seen (Normal) Mucus Threads Present (Normal) Epithelial Cells (non renal) None seen {/hpf} (Normal) Range: 0 - 10 RBC None seen {/hpf} (Normal) Range: 0 - 2 WBC 0-5 {/hpf} (Normal) Range: 0 - 5 54-Dnt-805524:51 CALCIFIDIOL (14279) VIT D 25 Comments: PATIENT NOT FASTINGPERFORMED BY: RUTH [facility] Hcyqoq90[address]Dublin [place] [id number] Vitamin D, 25-Hydroxy 68.5 ng/mL (Normal) Range: 30.0-100.0 Comments: Vitamin D deficiency has been defined by the [place] and an Endocrine Society practice guideline as alevel of serum 25-OH vitamin D less than 20 ng/mL (1,2).The Endocrine Society went on to further define vitamin Dinsufficiency as a level between 21 and 29 ng/mL (2).1. IOM ([place] [employer]). 2010. Dietary reference intakes for calcium and D. [place]: The National Academies Press.2. Jadon MF, Abimael NC, Susan SANCHES, et al. Evaluation, treatment, and prevention of vitamin D deficiency: an Endocrine Society clinical practice guideline. JCEM. 2010; 96(7):1911-30. 31-Afg-745177:51 TSH (96471) Comments: PATIENT NOT FASTINGPERFORMED BY: CB [facility] Icuwcu56[address]Dublin [place] [id number] TSH 3.620 {uIU/mL} (Normal) Range: 0.450-4.500 21-Gpv-250672:51 URINALYSIS, W/ MICRO (62636) Comments: PATIENT NOT FASTINGPERFORMED BY: RUTH [facility] Ouvvej2903 [address] RoadDublin [place] [id number] Microscopic Examination See below: (Normal) Comments: Microscopic was indicated and was performed. Microscopic Examination MICRON (Normal) Comments: Microscopic follows if indicated. Nitrite, Urine Negative (Normal) Urobilinogen,Semi-Qn 0.2 mg/dL (Normal) Range: 0.2-1.0 Bilirubin Negative (Normal) Occult Blood Negative (Normal) Ketones Negative (Normal) Glucose Negative (Normal) Protein Negative (Normal) WBC Esterase Negative (Normal) Appearance Clear (Normal) Urine-Color Yellow (Normal) pH 6.0 (Normal) Range: 5.0-7.5 Specific [place] 1.019 (Normal) Range: 1.005-1.030 44-Yfx-112132:51 METABOLIC PANEL, COMPREHENSIVE Comments: PATIENT NOT FASTINGPERFORMED BY: [facility] [address] [facility] [id number] (65515) ALT (SGPT) 21 [iU]/L (Normal) Range: 0-32 AST (SGOT) 22 [iU]/L (Normal) Range: 0-40 Alkaline Phosphatase 85 [iU]/L (Normal) Range: 39-117 Bilirubin, Total 0.4 mg/dL (Normal) Range: 0.0-1.2 A/G Ratio 1.8 (Normal) Range: 1.2-2.2 Globulin, Total 2.4 g/dL (Normal) Range: 1.5-4.5 Albumin 4.2 g/dL (Normal) Range: 3.6-4.8 Protein, Total 6.6 g/dL (Normal) Range: 6.0-8.5 Calcium 9.8 mg/dL (Normal) Range: 8.7-10.3 Carbon Dioxide, Total 24 mmol/L (Normal) Range: 20-29 Chloride 104 mmol/L (Normal) Range: 96-106 Potassium 4.1 mmol/L (Normal) Range: 3.5-5.2 Sodium 143 mmol/L (Normal) Range: 134-144 BUN/Creatinine Ratio 20 (Normal) Range: 12-28 eGFR If Africn Am 105 mL/min/1.73 (Normal) eGFR If NonAfricn Am 91 mL/min/1.73 (Normal) Creatinine 0.66 mg/dL (Normal) Range: 0.57-1.00 BUN 13 mg/dL (Normal) Range: 8-27 Glucose 64 mg/dL (Abnormal) Range: 65-99 Gastric Biopsy See Note (Normal) Comments: [facility] [address] [place], [address] :00 Comments: Patient: JAKY BRUSH : 1950 (66/F) Acct Num: [id number] Phys: Petros NEELY,Madi Unit Num: [id number] Loc: EN Specimen: [id number] Received: 11/29/17 - 1143 Spec Type: Mikey nikia Bx TISSUES TISSUES: Gastric mucous membrane COMMENT Immunohistochemistry for Helicobacter pylori can be performed if clinically indicated. Please notify the Laborato [facility] if it is needed. GROSS DESCRIPTION Received in fixative is one container labeled with the patient's name and designated gastric polyp biopsy. The specimen consists of one irregular fragment of light miguel soft tissue that measures 0.4 x 0.3 x 0.1 cm. The specimen is totally submitted in one cassette. / RIGOBERTO:beba 11/29/17 TC:5 CPT: 59909 HEADER OPERATION: EGD with biopsy PRE-OP DIAG NOSIS: Eosinophilic esophagitis TISSUE SUBMITTED: Gastric polyp biopsy MICROSCOPIC DESCRIPTION Slides are reviewed. MICROSCOPIC DIAGNOSIS Gastric polyp, biopsy: Fundic gland polyp . See comment. RIGOBERTO:beba [id number] Signed Shabbir Agustín 11/30/17 <signature on file> 1-Idx-011016:36 Microscopic Examination Comments: PATIENT WAS FASTINGPERFORMED BY: [employer] [place] [id number] Bacteria None seen (Normal) Mucus Threads Present (Normal) Crystal Type Calcium Oxalate (Normal) Crystals Present (Abnormal) Epithelial Cells (non renal) 0-10 {/hpf} (Normal) Range: 0 - 10 RBC 0-2 {/hpf} (Normal) Range: 0 - 2 WBC 0-5 {/hpf} (Normal) Range: 0 - 5 6-Pjp-872690:36 CALCIFEDIOL (78043) Comments: PATIENT WAS FASTINGPERFORMED BY: [employer] [place] [id number] Vitamin D, 25-Hydroxy 171.2 ng/mL (Abnormal) Range: 30.0-100.0 Comments: Results confirmed ondilution.Vitamin D deficiency has been defined by the [place] and an Endocrine Society practice guideline as alevel of serum 25-OH vitamin D less than 20 ng/mL (1,2).The Endocrine Society went on to further define vitamin Dinsufficiency as a level between 21 and 29 ng/mL (2).1. IOM ([place]). 2010. Dietary reference intakes for calcium and D. [place]: The National Academies Press.2. Jadon MF, Abimael CHAWLA, Susan SANCHES, et al. Evaluation, treatment, and prevention of vitamin D deficiency: an Endocrine Society clinical practice guideline. JCEM. 2010; 96(7):1911-30. 2-Cnc-182801:36 URINALYSIS, W/ MICRO (84473) Comments: PATIENT WAS FASTINGPERFORMED BY: [employer] [place] [id number] Microscopic Examination See below: (Normal) Comments: Microscopic was indicated and was performed. Microscopic Examination MICRON (Normal) Comments: Microscopic follows if indicated. Nitrite, Urine Negative (Normal) Urobilinogen,Semi-Qn 0.2 mg/dL (Normal) Range: 0.2-1.0 Bilirubin Negative (Normal) Occult Blood Negative (Normal) Ketones Trace (Abnormal) Glucose Negative (Normal) Protein Negative (Normal) WBC Esterase Negative (Normal) Appearance Clear (Normal) Urine-Color Yellow (Normal) pH 6.0 (Normal) Range: 5.0-7.5 Specific [place] >=1.030 (Abnormal) Range: 1.005-1.030 4-Tpk-003734:36 MICROALBUMIN: CREATININE RATIO Comments: PATIENT WAS FASTINGPERFORMED BY: [facility] [id number] (22427) AND (40366) Alb/Creat Ratio 5.9 {mg/g_creat} (Normal) Range: 0.0-30.0 Albumin, Urine 9.0 ug/mL (Normal) Creatinine, Urine 152.4 mg/dL (Normal) 8-Bhv-721409:36 METABOLIC PANEL, COMPREHENSIVE Comments: PATIENT WAS FASTINGPERFORMED BY: [facility] [id number] (70207) ALT (SGPT) 20 [iU]/L (Normal) Range: 0-32 AST (SGOT) 22 [iU]/L (Normal) Range: 0-40 Alkaline Phosphatase, S 84 [iU]/L (Normal) Range: 39-117 Bilirubin, Total 0.3 mg/dL (Normal) Range: 0.0-1.2 A/G Ratio 1.9 (Normal) Range: 1.2-2.2 Globulin, Total 2.4 g/dL (Normal) Range: 1.5-4.5 Albumin, Serum 4.6 g/dL (Normal) Range: 3.6-4.8 Protein, Total, Serum 7.0 g/dL (Normal) Range: 6.0-8.5 Calcium, Serum 10.2 mg/dL (Normal) Range: 8.7-10.3 Carbon Dioxide, Total 22 mmol/L (Normal) Range: 18-29 Chloride, Serum 103 mmol/L (Normal) Range: 96-106 Potassium, Serum 4.8 mmol/L (Normal) Range: 3.5-5.2 Sodium, Serum 143 mmol/L (Normal) Range: 134-144 BUN/Creatinine Ratio 23 (Normal) Range: 12-28 eGFR If Africn Am 106 mL/min/1.73 (Normal) eGFR If NonAfricn Am 92 mL/min/1.73 (Normal) Creatinine, Serum 0.65 mg/dL (Normal) Range: 0.57-1.00 BUN 15 mg/dL (Normal) Range: 8-27 Glucose, Serum 93 mg/dL (Normal) Range: 65-99 7-Erb-028347:36 LIPID PANEL (56025) Comments: PATIENT WAS FASTINGPERFORMED BY: [facility] CenterLnjknq[address] [facility] [id number] LDL/HDL Ratio 1.8 {ratio_units} (Normal) Range: 0.0-3.2 Comments: LDL/HDL Ratio Men Women 1/2 Avg.Risk 1.0 1.5 Av g.Risk 3.6 3.2 2X Avg.Risk 6.2 5.0 3X Avg.Risk 8.0 6.1 LDL Cholesterol Calc 110 mg/dL (Abnormal) Range: 0-99 VLDL Cholesterol Medardo 10 mg/dL (Normal) Range: 5-40 HDL Cholesterol 61 mg/dL (Normal) Triglycerides 48 mg/dL (Normal) Range: 0-149 Cholesterol, Total 181 mg/dL (Normal) Range: 100-199 8-Lzv-278253:36 CBC W/AUTO DIFF WBC (85880) Comments: PATIENT WAS FASTINGPERFORMED BY: [employer] [address] [facility] [id number] Immature Grans (Abs) 0.0 {x10E3/uL} (Normal) Range: 0.0-0.1 Immature Granulocytes 0 % (Normal) Baso (Absolute) 0.0 {x10E3/uL} (Normal) Range: 0.0-0.2 Eos (Absolute) 0.4 {x10E3/uL} (Normal) Range: 0.0-0.4 Monocytes(Absolute) 0.5 {x10E3/uL} (Normal) Range: 0.1-0.9 Lymphs (Absolute) 2.1 {x10E3/uL} (Normal) Range: 0.7-3.1 Neutrophils (Absolute) 3.7 {x10E3/uL} (Normal) Range: 1.4-7.0 Basos 0 % (Normal) Eos 6 % (Normal) Monocytes 7 % (Normal) Lymphs 32 % (Normal) Neutrophils 55 % (Normal) Platelets 314 {x10E3/uL} (Normal) Range: 150-379 RDW 13.8 % (Normal) Range: 12.3-15.4 MCHC 33.4 g/dL (Normal) Range: 31.5-35.7 MCH 27.7 pg (Normal) Range: 26.6-33.0 MCV 83 fL (Normal) Range: 79-97 Hematocrit 42.2 % (Normal) Range: 34.0-46.6 Hemoglobin 14.1 g/dL (Normal) Range: 11.1-15.9 RBC 5.09 {x10E6/uL} (Normal) Range: 3.77-5.28 WBC 6.7 {x10E3/uL} (Normal) Range: 3.4-10.8 0-Zix-515554:36 TSH (74531) Comments: PATIENT WAS FASTINGPERFORMED BY: [facility]ikwell TechnologiesSt. [facility] CenterJqhppf[address] [facility] [id number] TSH 1.970 {uIU/mL} (Normal) Range: 0.450-4.500 2-Wmq-413020:36 T4, FREE (THYROXINE) (32008) Comments: PATIENT WAS FASTINGPERFORMED BY: [facility]CoSt[facility] CenterJdgntj[address] [facility] [id number] T4,Free(Direct) 1.29 ng/dL (Normal) Range: 0.82-1.77 :36 T3, FREE (TRIDOTHYRONINE) (01754) Comments: PATIENT WAS FASTINGPERFORMED BY: [facility]CoSt[facility] CenterJujlqe026[address] [facility] [id number] Triiodothyronine,Free,Serum 3.1 pg/mL (Normal) Range: 2.0-4.4 64-Kmx-311036:37 NuSwab Vaginitis Plus Comments: PATIENT NOT FASTINGPERFORMED BY: [address] [id number] Information: SRC:VA (trich/BV/GC/lillie W/O Herpes) (30591) Neisseria gonorrhoeae, Negative (Normal) STEPHANIE Chlamydia trachomatis, Negative (Normal) STEPHANIE Trich vag by STEPHANIE Negative (Normal) Felicitas glabrata, STEPHANIE Negative (Normal) Comments: This test was developed and its performance characteristics determinedby [employer]. It has not been cleared or approved by the Food and DrugAdministration. The FDA has determined that such clearance orapproval is not necessary. Felicitas albicans, STEPHANIE Negative (Normal) Megasphaera 1 Low - 0 {Score} Comments: Calculate total score by adding the 3 individual bacterialvaginosis (BV) marker scores together. Total score isinterpreted as follows:Total score 0-1: Indicates the absence of BV.Total scor e 2: Indet (Normal) erminate for BV. Additional clinical data should be evaluated to establish a diagnosis.Total score 3-6: Indicates the presence of BV. .This test was developed and its performance characteristicsdetermined by [employer]. It has not been cleared or approvedby the Food and Drug Administration. The FDA has determinedthat such clearance or approval is not necessary. BVAB 2 Low - 0 {Score} (Normal) Atopobium vaginae Low - 0 {Score} (Normal) 79-Kzv-451244:26 CALCIFIDIOL (11344) VIT D 25 Comments: PATIENT NOT FASTINGPERFORMED BY: [facility] Nvoxqp0468 D[address] [facility] [id number] Vitamin D, 25-Hydroxy 69.9 ng/mL (Normal) Range: 30.0-100.0 Comments: Vitamin D deficiency has been defined by the [place] of[place] and an Endocrine Society practice guideline as alevel of serum 25-OH vitamin D less than 20 ng/mL (1,2).The Endocrine Society went on to further define vitamin Dinsufficiency as a level between 21 and 29 ng/mL (2).1. IOM ([place] [employer] [place]). 2010. Dietary reference intakes for calcium and D. [place]: The National Academies Press.2. Jadon MF, Abimael CHAWLA, Susan SANCHES, et al. Evaluation, treatment, and prevention of vitamin D deficiency: an Endocrine Society clinical practice guideline. JCEM. 2010; 96(7):1911-30. :38 Thin prep Pap Comments: Source.............Cervix;EndocervixNo. of containers..01 CYTYC Thin Prep VialPATIENT NOT FASTINGPERFORMED BY: =G [facility] Vdrumtczdf[address] [id number] BY: Saygus (44121) (no STD rp Lmvoecflix159 [address] PlazaFlyCliprlessouthern ocean medical center W [id number] Information: [id number] testing) Age Gdln ACOG Testing AGE5 (Normal) Comments: <21 or >65 or no age provided :38 Pap IG (Image Comments: Source.............Cervix;EndocervixNo. of containers..01 CYTYC Thin Prep VialPATIENT NOT FASTINGPERFORMED BY: =G [facility] Hcyhvjnaqg[address] [id number] BY: WB [facility] Guided) Ipjorzphjm[address] [id number] Note: PAPSMR (Normal) Comments: The Pap smear is a screening test designed to aid in the detection ofpremalignant and malignant conditions of the uterine cervix. It is not adiagnostic procedure and should not be used as the sole mean s of detectingcervical cancer. Both false-positive and false-negative reports do occur. .This liquid based ThinPrep(R) pap test w as screened with theuse of an image guided system. See Note . (Normal) DIAGNOSIS: SPRCS (Normal) Comments: NEGATIVE FOR INTRAEPITHELIAL LESION AND MALIGNANCY.CELLULAR CHANGES ASSOCIATED WITH ATROPHY AND INFLAMMATION ARE PRESENT.Satisfactory for evaluation. Endocervical component may not bedistin guished in c ases of atrophy.Z00.01Ashley Delgado, Predatory Hunter (ASCP) 71-Bfv-72442:37 CBC W/Diff, Automated Comments: [facility] [address] [place], [address] Absolute Lymph 1.88 {X10_3/ul} (Normal) Range: 0.83-4.51 Absolute Neut 3.0 {X10_3/uL} (Normal) Range: 2.0-7.7 IM GRAN % 0.200 % (Normal) Range: 0.0-0.9 Comments: IG% - Immature Granulocytes (promyelocytes, myelocytes andmetamyelocytes) > 1% indicates that a LEFT SHIFT is Present. BASO% 0.3 % (Normal) Range: 0-1 EO% 6.8 % (Abnormal) Range: 0-5 MONO% 9.5 % (Normal) Range: 0-10 LY% 31.9 % (Normal) Range: 19-41 NEUT% 51.3 % (Normal) Range: 47-70 MPV 10.2 fL (Normal) Range: 6.2-12.0 PLT 290 K/mm3 (Normal) Range: 150-450 RDW SD 41.0 fL (Normal) Range: 35.1-43.9 RDW CV 13.5 % (Normal) Range: 11.6-14.6 MCHC 33.3 {g/gl} (Normal) Range: 32-36 MCH 28.1 pg (Normal) Range: 27.0-32.0 MCV 84.4 fL (Normal) Range: 81-99 HCT 41.2 % (Normal) Range: 37-47 HGB 13.7 g/dL (Normal) Range: 12.0-15.0 RBC 4.88 {M/mm3} (Normal) Range: 4.2-5.4 WBC 5.9 K/mm3 (Normal) Range: 4.4-11.0 :37 Comprehensive Metabolic Profil Comments: Is Patient Taking Vitamins or Folic Acid Supplements? [facility] [address] [place], [place], [id number] GAP 11 (Normal) Range: 5-15 CO2 24.0 mmol/L (Normal) Range: 21.0-32.0 CL 106 mmol/L (Normal) Range: 98-107 K 3.8 mmol/L (Normal) Range: 3.5-5.1 NA 141 mmol/L (Normal) Range: 136-145 T BILI 0.40 mg/dL (Normal) Range: 0.20-1.00 ALT 34 U/L (Normal) Range: 12-78 ALK P 93 U/L (Normal) Range: 45-117 AST 18 U/L (Normal) Range: 15-37 CA 9.0 mg/dL (Normal) Range: 8.5-10.1 A/G 1.0 {RATIO} (Normal) Range: 0.9-2.4 GLOB 3.5 g/dL (Normal) Range: 2.3-3.5 ALB 3.6 g/dL (Normal) Range: 3.4-5.0 T PROT 7.1 g/dL (Normal) Range: 6.4-8.2 BUN/CRE 26.5 {RATIO} (Abnormal) Range: 10-20 EST GFR - AA 162 mL/min (Normal) Comments: GFR Calc EST GFR 134 mL/min (Normal) Comments: Non- GFR Calc CREAT,SERUM 0.49 mg/dL (Abnormal) Range: 0.55-1.02 Comments: The validity of the calculated GFR AND GFRAA in patients over70 years has not been determined. Clinical correlation isessential. BUN 13 mg/dL (Normal) Range: 7-18 GLU 89 mg/dL (Normal) Range: 70-110 :37 Folates, (Folic Acid) Comments: Is Patient Taking Vitamins or Folic Acid Supplements? [facility] [address] [place], [address] FOLATES 19.70 ng/mL (Abnormal) Range: 3.1-17.5 :37 Free T3 Comments: Is Patient Taking Vitamins or Folic Acid Supplements? [facility] [address] [place], [address] FREE T3 3.8 pg/mL (Normal) Range: 2.18-3.98 :37 Lipid Profile Comments: Is Patient Taking Vitamins or Folic Acid Supplements? [facility] [address] [place], [address] VLDL 11 mg/dL (Normal) Range: 5-40 LDL 106 mg/dL (Normal) Range: 0-130 HDL 64 mg/dL (Normal) Comments: The drugs N-Acetylcysteine and Metamizole may falsely deressthis assay. Reference Range HDL <40 mg/dL Low HDL Cholesterol HDL >or= 60 mg/dL High HDL Cholesterol TRIG 53 mg/dL (Normal) Comments: The drugs N-Acetylcysteine and Metamizole may falsely deressthis assay.Serum Triglycerides Reference Interval Normal <150 mg/dL Borderline high 150 - 199 mg/dL High 200 - 499 mg/dL Very High > or = 500 mg/dL CHOL 181 mg/dL (Normal) Comments: <200 mg/dL Desirable 200-240 mg/dL Borderline >240 mg/dL High Risk :37 Microalb:Creat Ratio,Random UR Comments: [facility] [address] [place], [address] MALB:CREAT 5.3 {mg/g_CRE} (Normal) MICROALBUMIN,UR 6.6 mg/L (Normal) UR CREAT 124.00 mg/dL (Normal) :37 T4 Free Direct Comments: Is Patient Taking Vitamins or Folic Acid Supplements? [facility] [address] [place], [address] T4 FREE DIRECT 0.93 ng/dL (Normal) Range: 0.76-1.46 :37 Thyroid Stim Hormone (TSH) Comments: Is Patient Taking Vitamins or Folic Acid Supplements? [facility] [address] [place], [id number] TSH 5.81 {uIU/mL} (Abnormal) Range: 0.358-3.74 :37 Vitamin B12 720 pg/mL (Normal) Comments: [facility] [address] [place], [id number] Range: 211-911 :14 CBC W/Diff, Automated Comments: [facility] [address] [place], [id number] Absolute Lymph 3.44 {X10_3/ul} (Normal) Range: 0.83-4.51 Absolute Neut 4.5 {X10_3/uL} (Normal) Range: 2.0-7.7 IM GRAN % 0.400 % (Normal) Range: 0.0-0.9 Comments: IG% - Immature Granulocytes (promyelocytes, myelocytes andmetamyelocytes) > 1% indicates that a LEFT SHIFT is Present. BASO% 0.2 % (Normal) Range: 0-1 EO% 3.7 % (Normal) Range: 0-5 MONO% 7.9 % (Normal) Range: 0-10 LY% 38.2 % (Normal) Range: 19-41 NEUT% 49.6 % (Normal) Range: 47-70 MPV 9.4 fL (Normal) Range: 6.2-12.0 PLT 378 K/mm3 (Normal) Range: 150-450 RDW SD 39.8 fL (Normal) Range: 35.1-43.9 RDW CV 13.1 % (Normal) Range: 11.6-14.6 MCHC 33.8 {g/gl} (Normal) Range: 32-36 MCH 28.5 pg (Normal) Range: 27.0-32.0 MCV 84.3 fL (Normal) Range: 81-99 HCT 40.2 % (Normal) Range: 37-47 HGB 13.6 g/dL (Normal) Range: 12.0-15.0 RBC 4.77 {M/mm3} (Normal) Range: 4.2-5.4 WBC 9.0 K/mm3 (Normal) Range: 4.4-11.0 :14 Comprehensive Metabolic Profil Comments: PLEASE ADD FOLATES TO BLOOD FROM THIS MORNINGIs Patient Taking Vitamins or Folic Acid Supplements? [facility] [address] [place], [place], [id number] GAP 10 (Normal) Range: 5-15 CO2 25.0 mmol/L (Normal) Range: 21.0-32.0 CL 103 mmol/L (Normal) Range: 98-107 K 3.5 mmol/L (Normal) Range: 3.5-5.1 NA 138 mmol/L (Normal) Range: 136-145 T BILI 0.60 mg/dL (Normal) Range: 0.20-1.00 ALT 27 U/L (Normal) Range: 12-78 ALK P 80 U/L (Normal) Range: 50-136 AST 17 U/L (Normal) Range: 15-37 CA 8.2 mg/dL (Abnormal) Range: 8.5-10.1 A/G 1.0 {RATIO} (Normal) Range: 0.9-2.4 GLOB 3.2 g/dL (Normal) Range: 2.3-3.5 ALB 3.3 g/dL (Abnormal) Range: 3.4-5.0 T PROT 6.5 g/dL (Normal) Range: 6.4-8.2 BUN/CRE 17.4 {RATIO} (Normal) Range: 10-20 EST GFR - AA 121 mL/min (Normal) Comments: GFR Calc EST GFR 100 mL/min (Normal) Comments: Non- GFR Calc CREAT,SERUM 0.63 mg/dL (Normal) Range: 0.55-1.20 Comments: The validity of the calculated GFR AND GFRAA in patients over70 years has not been determined. Clinical correlation isessential. BUN 11 mg/dL (Normal) Range: 7-18 GLU 78 mg/dL (Normal) Range: 70-110 :14 Folates, (Folic Acid) Comments: PLEASE ADD FOLATES TO BLOOD FROM THIS MORNINGIs Patient Taking Vitamins or Folic Acid Supplements? [facility] [address] [place], [address] FOLATES 43.60 ng/mL (Abnormal) Range: 3.1-17.5 :14 Free T3 Comments: PLEASE ADD FOLATES TO BLOOD FROM THIS MORNINGIs Patient Taking Vitamins or Folic Acid Supplements? [facility] [address] [place], [address] FREE T3 2.8 pg/mL (Normal) Range: 2.18-3.98 :14 Hemoglobin A1c Comments: [facility] [facility] [id number] [place], [address] HGB A1C 5.6 % (Normal) Range: 4.2-6.3 :14 Lipid Profile Comments: PLEASE ADD FOLATES TO BLOOD FROM THIS MORNINGIs Patient Taking Vitamins or Folic Acid Supplements? [facility] [address] [place], [address] VLDL 30 mg/dL (Normal) Range: 5-40 LDL 67 mg/dL (Normal) Range: 0-130 HDL 56 mg/dL (Normal) Comments: The drugs N-Acetylcysteine and Metamizole may falsely deressthis assay. Reference Range HDL <40 mg/dL Low HDL Cholesterol HDL >or= 60 mg/dL High HDL Cholesterol TRIG 148 mg/dL (Normal) Comments: The drugs N-Acetylcysteine and Metamizole may falsely deressthis assay.Serum Triglycerides Reference Interval Normal <150 mg/dL Borderline high 150 - 199 mg/dL High 200 - 499 mg/dL Very High > or = 500 mg/dL CHOL 153 mg/dL (Normal) Comments: <200 mg/dL Desirable 200-240 mg/dL Borderline >240 mg/dL High Risk :14 Microalb:Creat Ratio,Random UR Comments: [facility] [address] [place], [address] MALB:CREAT 4.8 {mg/g_CRE} (Normal) MICROALBUMIN,UR 9.6 mg/L (Normal) UR CREAT 202.00 mg/dL (Normal) :14 T3 Total - Triiodothyronine Comments: [facility] [address] [place], [id number] T3 Total 1.33 ng/mL (Normal) Range: 0.6-1.81 :14 T4 Free Direct Comments: PLEASE ADD FOLATES TO BLOOD FROM THIS MORNINGIs Patient Taking Vitamins or Folic Acid Supplements? [facility] [address] [place], [phone] FREE DIRECT 0.95 ng/dL (Normal) Range: 0.76-1.46 :14 T4 Total, Thyroxin Comments: PLEASE ADD FOLATES TO BLOOD FROM THIS MORNINGIs Patient Taking Vitamins or Folic Acid Supplements? [facility] [address] [place], [address] T4 THYROXIN 8.4 ug/dL (Normal) Range: 4.8-13.9 :14 Thyroid Peroxidase AB Comments: [facility] (refer to report for specific site)refer to report for address and phone number TPO AB 7699 13 {IU/mL} (Normal) Range: 0-34 Comments: Performed at: [facility] [address] [id number] Director: Tonio Bose PhD, Phone: [phone] Thyroid Stim Hormone (TSH) Comments: PLEASE ADD FOLATES TO BLOOD FROM THIS MORNINGIs Patient Taking Vitamins or Folic Acid Supplements? [facility] [address] [place], [phone] TSH 9.32 {uIU/mL} (Abnormal) Range: 0.358-3.74 :14 Vitamin B12 1240 pg/mL (Abnormal) Comments: [facility] [address] [place], [phone] Range: 211-911 :14 Vitamin D,25 Hydroxy Comments: [facility] [address] [place], [place], [id number] Vitamin D 25-OH 33.8 ng/mL (Normal) Comments: Vitamin D 25(OH) Status Range Deficiency <20 ng/mL (50nmol/L) Insuffciency 20 - 30 ng/mL (50 - 75 nmol/L) Sufficiency 30 - 100 ng/mL (75 - 250 nmol/L) Toxicity >100 ng/mL (>250 nmol/L) :25 Sputum Culture ([id number]) Comments: PATIENT NOT FASTINGPERFORMED BY: [facility] [id number] [facility] [id number] Information: [id number] Result 1 RRF (Normal) Comments: Routine respiratory tomas Lower Respiratory Culture Final report (Normal) :37 CULTURE, SPUTUM ([id number]) Comments: PATIENT NOT FASTINGPERFORMED BY: [facility] [id number] [facility] [id number] Information: SRC:[facility] [id number] Result 1 RRF (Normal) Comments: Routine respiratory tomas Lower Respiratory Culture Final report (Normal) :26 CBC W/Diff, Automated Comments: Test performed at:[facility] [address] [place], [place] [id number] Absolute Lymph 1.93 {X10_3/ul} (Normal) Range: 0.83-4.51 Absolute Neut 4.0 {X10_3/uL} (Normal) Range: 2.0-7.7 IM GRAN % 0.100 % (Normal) Range: 0.0-0.9 Comments: IG% - Immature Granulocytes (promyelocytes, myelocytes andmetamyelocytes) > 1% indicates that a LEFT SHIFT is Present. BASO% 0.1 % (Normal) Range: 0-1 EO% 6.3 % (Abnormal) Range: 0-5 MONO% 8.1 % (Normal) Range: 0-10 LY% 27.8 % (Normal) Range: 19-41 NEUT% 57.6 % (Normal) Range: 47-70 MPV 9.3 fL (Normal) Range: 6.2-12.0 PLT 457 K/mm3 (Abnormal) Range: 150-450 RDW SD 42.7 fL (Normal) Range: 35.1-43.9 RDW CV 13.8 % (Normal) Range: 11.6-14.6 MCHC 33.3 {g/gl} (Normal) Range: 32-36 MCH 28.3 pg (Normal) Range: 27.0-32.0 MCV 85.0 fL (Normal) Range: 81-99 HCT 40.9 % (Normal) Range: 37-47 HGB 13.6 g/dL (Normal) Range: 12.0-15.0 RBC 4.81 {M/mm3} (Normal) Range: 4.2-5.4 WBC 7.0 K/mm3 (Normal) Range: 4.4-11.0 50-Flf-97995:26 Comprehensive Metabolic Profil Comments: Test performed at:[facility] [address] [place] [address] GAP 10 (Normal) Range: 5-15 CO2 23.0 mmol/L (Normal) Range: 21.0-32.0 CL 106 mmol/L (Normal) Range: 98-107 K 3.7 mmol/L (Normal) Range: 3.5-5.1 NA 139 mmol/L (Normal) Range: 136-145 T BILI 0.40 mg/dL (Normal) Range: 0.00-4.00 ALT 39 U/L (Normal) Range: 12-78 ALK P 88 U/L (Normal) Range: 50-136 AST 26 U/L (Normal) Range: 15-37 CA 9.1 mg/dL (Normal) Range: 8.5-10.1 A/G 1.1 {RATIO} (Normal) Range: 0.9-2.4 GLOB 3.4 g/dL (Normal) Range: 2.7-4.2 ALB 3.9 g/dL (Normal) Range: 3.4-5.0 T PROT 7.3 g/dL (Normal) Range: 6.4-8.2 BUN/CRE 16.7 {RATIO} (Normal) Range: 10-20 EST GFR - AA 130 mL/min (Normal) EST GFR 107 mL/min (Normal) CREAT,SERUM 0.6 mg/dL (Normal) Range: 0.6-1.0 BUN 10 mg/dL (Normal) Range: 7-18 GLU 97 mg/dL (Normal) Range: 70-110 31-Ufc-28384:26 Lipid Profile Comments: Test performed at:[facility] [address] [place] [address] VLDL 16 mg/dL (Normal) Range: 5-40 LDL 97 mg/dL (Normal) Range: 0-130 HDL 58 mg/dL (Normal) Comments: Reference Range HDL <40 mg/dL Low HDL Cholesterol HDL >or= 60 mg/dL High HDL Cholesterol TRIG 82 mg/dL (Normal) Range: 0-199 Comments: Serum Triglycerides Reference Interval Normal <150 mg/dL Borderline high 150 - 199 mg/dL High 200 - 499 mg/dL Very High > or = 500 mg/dL CHOL 171 mg/dL (Normal) Comments: <200 mg/dL Desirable 200-240 mg/dL Borderline >240 mg/dL High Risk :26 Urinalysis, Complete Comments: How was Urine Obtained? CLEAN CATCHTest performed at:[facility] [address] [place] [address] MUCUS, URINE 0 SEEN {/hpf} (Normal) BACTERIA 0 SEEN {/hpf} (Normal) SQUAM EPI 0-5 SEEN {/hpf} (Normal) Range: 5-10 RBC-UA 0 SEEN {/hpf} (Normal) Range: 0-5 WBC 0-5 SEEN {/hpf} (Normal) Range: 0-5 LEUK ESTERASE 25 /ul (Abnormal) OCCULT BLOOD-UR Negative /ul (Normal) NITRITE UR Negative (Normal) UROBILI Normal mg/dL (Normal) PROT DIPSTX Negative mg/dL (Normal) pH UR 5.0 (Normal) Range: 5.0 - 8.0 SP.GR. DIPSTX 1.015 (Normal) Range: 1.002-1.030 KETONE UR Negative mg/dL (Normal) BILIRUBIN URINE Negative mg/dL (Normal) GLUCOSE, UR Normal mg/dL (Normal) CLARITY Sl. Cloudy (Normal) COLOR Yellow (Normal) 14-Jun-20149:08 URINALYSIS (01333) Comments: PATIENT WAS FASTINGPERFORMED BY: [facility]St[facility] CenterQrqavs9594 [address] [facility] [id number] Microscopic Examination MICNIP (Normal) Comments: Microscopic not indicated and not performed. Nitrite, Urine Negative (Normal) Urobilinogen,Semi-Qn 0.2 mg/dL (Normal) Range: 0.0-1.9 Bilirubin Negative (Normal) Occult Blood Negative (Normal) Ketones Negative (Normal) Glucose Negative (Normal) Protein Negative (Normal) WBC Esterase Negative (Normal) Appearance Clear (Normal) Urine-Color Yellow (Normal) pH 6.0 (Normal) Range: 5.0-7.5 Specific [place] 1.027 (Normal) Range: 1.005-1.030 :08 MICROALBUMIN: CREATININE RATIO Comments: PATIENT WAS FASTINGPERFORMED BY: [facility] CenterOc[facility]vb[address] [facility] [id number] ([id number]) AND (17730) Microalb/Creat Ratio 3.6 {mg/g_creat} (Normal) Range: 0.0-30.0 Microalbumin, Urine 6.0 ug/mL (Normal) Range: 0.0-17.0 Creatinine, Urine 168.1 mg/dL (Normal) Range: 15.0-278.0 :08 TSH ([id number]) Comments: PATIENT WAS FASTINGPERFORMED BY: [facility] CenterNqprfv[address] [facility] [id number] TSH 4.310 {uIU/mL} (Normal) Range: 0.450-4.500 :08 CBC, Platelets & Auto Diff Comments: PATIENT WAS FASTINGPERFORMED BY: Qikwell TechnologiesSt. [facility] Medical CenterIabmma[address] [facility] [id number] Information: [id number] (46583) Immature Grans (Abs) 0.0 {x10E3/uL} (Normal) Range: 0.0-0.1 Immature Granulocytes 0 % (Normal) Baso (Absolute) 0.0 {x10E3/uL} (Normal) Range: 0.0-0.2 Eos (Absolute) 0.6 {x10E3/uL} (Abnormal) Range: 0.0-0.4 Monocytes(Absolute) 0.5 {x10E3/uL} (Normal) Range: 0.1-0.9 Lymphs (Absolute) 2.3 {x10E3/uL} (Normal) Range: 0.7-3.1 Neutrophils (Absolute) 4.6 {x10E3/uL} (Normal) Range: 1.4-7.0 Basos 0 % (Normal) Eos 7 % (Normal) Monocytes 6 % (Normal) Lymphs 29 % (Normal) Neutrophils 58 % (Normal) Platelets 313 {x10E3/uL} (Normal) Range: 150-379 RDW 13.8 % (Normal) Range: 12.3-15.4 MCHC 32.1 g/dL (Normal) Range: 31.5-35.7 MCH 27.8 pg (Normal) Range: 26.6-33.0 MCV 87 fL (Normal) Range: 79-97 Hematocrit 41.1 % (Normal) Range: 34.0-46.6 Hemoglobin 13.2 g/dL (Normal) Range: 11.1-15.9 RBC 4.75 {x10E6/uL} (Normal) Range: 3.77-5.28 WBC 8.0 {x10E3/uL} (Normal) Range: 3.4-10.8 14-Jun-20149:08 Metabolic Panel, Comprehensive Comments: PATIENT WAS FASTINGPERFORMED BY: [facility]CoSt[facility] CenterBhnzoj[address] [facility] [id number] ([id number]) ALT (SGPT) 19 [iU]/L (Normal) Range: 0-32 AST (SGOT) 20 [iU]/L (Normal) Range: 0-40 Alkaline Phosphatase, S 86 [iU]/L (Normal) Range: 39-117 Bilirubin, Total 0.4 mg/dL (Normal) Range: 0.0-1.2 A/G Ratio 2.1 (Normal) Range: 1.1-2.5 Globulin, Total 2.0 g/dL (Normal) Range: 1.5-4.5 Albumin, Serum 4.2 g/dL (Normal) Range: 3.6-4.8 Protein, Total, Serum 6.2 g/dL (Normal) Range: 6.0-8.5 Calcium, Serum 9.5 mg/dL (Normal) Range: 8.6-10.2 Carbon Dioxide, Total 24 mmol/L (Normal) Range: 18-29 Chloride, Serum 104 mmol/L (Normal) Range: 97-108 Potassium, Serum 4.2 mmol/L (Normal) Range: 3.5-5.2 Sodium, Serum 143 mmol/L (Normal) Range: 134-144 BUN/Creatinine Ratio 25 (Normal) Range: 11-26 eGFR If Africn Am 111 mL/min/1.73 (Normal) eGFR If NonAfricn Am 96 mL/min/1.73 (Normal) Creatinine, Serum 0.61 mg/dL (Normal) Range: 0.57-1.00 BUN 15 mg/dL (Normal) Range: 8-27 Glucose, Serum 89 mg/dL (Normal) Range: 65-99 14-Jun-20149:08 Lipid Panel ([id number]) Comments: PATIENT WAS FASTINGPERFORMED BY: [facility]CoSt[facility] CenterDkbutv[address] [facility] [id number] LDL/HDL Ratio 1.9 {ratio_units} (Normal) Range: 0.0-3.2 Comments: LDL/HDL Ratio Men Women 1/2 Avg.Risk 1.0 1.5 Av g.Risk 3.6 3.2 2X Avg.Risk 6.2 5.0 3X Avg.Risk 8.0 6.1 LDL Cholesterol Calc 97 mg/dL (Normal) Range: 0-99 VLDL Cholesterol Medardo 16 mg/dL (Normal) Range: 5-40 HDL Cholesterol 52 mg/dL (Normal) Comments: According to ATP-III Guidelines, HDL-C >59 mg/dL is considered anegative risk factor for CHD. Triglycerides 81 mg/dL (Normal) Range: 0-149 Cholesterol, Total 165 mg/dL (Normal) Range: 100-199 77-Nyo-36058:19 CBCMD RBCM NORM C+C {NORMAL} (Normal) PE ADEQUATE (Normal) EOS 10 % (Abnormal) Range: 0-5 MON 5 % (Normal) Range: 0-10 LYMPH 38 % (Normal) Range: 19-41 PMN 47 % (Normal) Range: 47-70 REBECCA 100 (Normal) ANC 3.7 3/uL (Normal) Range: 2.0-7.7 PLT 282 K/mm3 (Normal) Range: 150-450 RDW 12.9 % (Normal) Range: 11.6-14.6 MCHC 33.8 g/dL (Normal) Range: 32-36 MCH 29.3 pg (Normal) Range: 27.0-32.0 MCV 86.9 fL (Normal) Range: 81-99 HCT 42.4 % (Normal) Range: 37-47 HGB 14.3 g.dL (Normal) Range: 12.0-15.0 RBC 4.88 {M/mm3} (Normal) Range: 4.2-5.4 WBC 6.7 K/mm3 (Normal) Range: 4.4-11.0 :19 CMP GAP 10 (Normal) Range: 5-15 CO2 25.0 mmol/L (Normal) Range: 21.0-32.0 CL 105 mmol/L (Normal) Range: 98-107 K 3.9 mmol/L (Normal) Range: 3.5-5.1 NA 140 mmol/L (Normal) Range: 136-145 BIT 0.40 mg/dL (Normal) Range: 0.00-1.00 ALT 31 U/L (Normal) Range: 12-78 ALK 93 U/L (Normal) Range: 50-136 AST 16 U/L (Normal) Range: 15-37 CA 9.1 mg/dL (Normal) Range: 8.5-10.1 AG 1.1 {RATIO} (Normal) Range: 0.9-2.4 GLOB 3.5 g/dL (Normal) Range: 2.7-4.2 ALB 3.8 g/dL (Normal) Range: 3.4-5.0 TPROT 7.3 g/dL (Normal) Range: 6.4-8.2 BC 15.0 {RATIO} (Normal) Range: 10-20 GFRAA 131 mL/min (Normal) GFR 108 mL/min (Normal) CREAT 0.6 mg/dL (Normal) Range: 0.6-1.0 BUN 9 mg/dL (Normal) Range: 7-18 GLU 91 mg/dL (Normal) Range: 70-110 :19 LIPID VLDL 16 mg/dL (Normal) Range: 5-40 LDL 100 mg/dL (Normal) Range: 0-130 HDL 56 mg/dL (Normal) Comments: Reference Range HDL <40 mg/dL Low HDL Cholesterol HDL >or= 60 mg/dL High HDL Cholesterol TRIG 80 mg/dL (Normal) Comments: Serum Triglycerides Reference Interval Normal <150 mg/dL Borderline high 150 - 199 mg/dL High 200 - 499 mg/dL Very High > or = 500 mg/dL CHOL 172 mg/dL (Normal) Comments: <200 mg/dL Desirable 200-240 mg/dL Borderline >240 mg/dL High Risk :19 [facility] UMUC 0 SEEN {/hpf} (Normal) UBAC 0 SEEN {/hpf} (Normal) UEPIS 0-5 SEEN {/hpf} (Normal) Range: 5-10 URBC 0 SEEN {/hpf} (Normal) Range: 0-5 UWBC 0 SEEN {/hpf} (Normal) Range: 0-5 KEITH Negative (Normal) UOB Negative (Normal) ALESSIA Negative (Normal) UROBU 0.2 EU/dl (Normal) Range: 0.2 - 1.0 uPROTU Negative (Normal) ARMAND 6.5 (Normal) Range: 5.0-8.0 SGU 1.010 (Normal) Range: 1.002-1.030 KETU Negative mg/dL (Normal) BILIU Negative (Normal) GLUR Negative (Normal) UCLAR Clear (Normal) UCOL Yellow (Normal) :25 CBCD,SMEAR DIFF RED CELL MORPH SeeNote {NORMAL} (Normal) Comments: Result: NORM C+C PLT EST SeeNote (Normal) Comments: Result: ADEQUATE EOS 7 % (Abnormal) Range: 0-5 MONOCYTE 10 % (Normal) Range: 0-10 LYMPH 26 % (Normal) Range: 19-41 SEGS 57 % (Normal) Range: 47-70 CELLS COUNTED 100 (Normal) ABSOLUTE NEUT 3.9 3/uL (Normal) Range: 2.0-7.7 PLT 301 K/mm3 (Normal) Range: 150-450 RDW 13.2 % (Normal) Range: 11.6-14.6 MCHC 33.1 g/dL (Normal) Range: 32-36 MCH 29.2 pg (Normal) Range: 27.0-32.0 MCV 88.4 fL (Normal) Range: 81-99 HCT 42.6 % (Normal) Range: 37-47 HGB 14.1 g/dL (Normal) Range: 12.0-16.0 RBC 4.82 {M/mm3} (Normal) Range: 4.2-5.4 WBC 6.6 K/mm3 (Normal) Range: 4.4-11.0 :25 COMP METABOLIC GAP 10 (Normal) Range: 5-15 CO2 28.0 mmol/L (Normal) Range: 21.0-32.0 CL 103 mmol/L (Normal) Range: 98-107 K 3.8 mmol/L (Normal) Range: 3.5-5.1 NA 141 mmol/L (Normal) Range: 136-145 T BILI 0.50 mg/dL (Normal) Range: 0.00-1.00 ALT 28 U/L (Normal) Range: 12-78 ALK P 93 U/L (Normal) Range: 50-136 AST 17 U/L (Normal) Range: 15-37 CA 9.3 mg/dL (Normal) Range: 8.5-10.1 A/G 1.2 {RATIO} (Normal) Range: 0.9-2.4 GLOB 3.3 g/dL (Normal) Range: 2.7-4.2 ALB 3.9 g/dL (Normal) Range: 3.4-5.0 T PROT 7.2 g/dL (Normal) Range: 6.4-8.2 BUN/CRE 18.3 {RATIO} (Normal) Range: 10-20 EST GFR - AA 131 mL/min (Normal) EST GFR 108 mL/min (Normal) CREAT,SERUM 0.6 mg/dL (Normal) Range: 0.6-1.0 BUN 11 mg/dL (Normal) Range: 7-18 GLU 87 mg/dL (Normal) Range: 70-110 :25 COMPLETE UA MUCUS, URINE 0 SEEN {/hpf} (Normal) BACTERIA 0 SEEN {/hpf} (Normal) SQUAM EPI SeeNote {/hpf} (Normal) Range: 5-10 Comments: Result: 0-5 SEEN RBC-UA 0 SEEN {/hpf} (Normal) Range: 0-5 LEUK ESTERASE SeeNote (Normal) Comments: Result: NEGATIVE WBC 0 SEEN {/hpf} (Normal) Range: 0-5 OCCULT BLOOD-UR SeeNote (Normal) Comments: Result: NEGATIVE NITRITE UR SeeNote (Normal) Comments: Result: NEGATIVE PROT DIPSTX SeeNote (Normal) Comments: Result: NEGATIVE UROBILI 0.2 EU/dl (Normal) Range: 0.2 - 1.0 pH UR 6.0 (Normal) Range: 5.0-8.0 SP.GR. DIPSTX 1.025 (Normal) Range: 1.002-1.030 KETONE UR SeeNote mg/dL (Normal) Comments: Result: NEGATIVE BILIRUBIN URINE SeeNote (Normal) Comments: Result: NEGATIVE GLUCOSE, UR SeeNote (Normal) Comments: Result: NEGATIVE CLARITY CLEAR (Normal) COLOR YELLOW (Normal) 42-Leq-43457:25 NMR LIPOPROFILE LP-IR SCORE 22 (Normal) Comments: LP-IR Score is inaccurate if patient is non-fasting.The LP-IR Score combines information from lipoproteinparticle concentration and size to give improvedassessment of insulin resistance and diabetes ris k.Small LDL-P, LDL Particle Size, HDL-Particle, andLP-IR Score have been validated by [employer]but not cleared by US FDA; the clinical utilityof these test results has not been fully established.INSUL IN RESISTANCE MARKER <--Insulin Sensitive Insulin Resistant--> Percentile in Reference PopulationInsulin Resistance ScoreLP-IR Score Low 25th 50th 75th High <27 27 45 63 >63Performed at: S7 - [employer] [id number] [place], [place] [id number] Director: Fany Martinez PhD, Phone: [phone] INSULIN RES SC . (Normal) INS RES/DIAB RK . (Normal) LDL SIZE 20.9 nm (Normal) Comments: INTERPRETATIVE INFORMATION PARTICLE CONCENTRATION AND SIZE <--Lower CVD Risk High er CVD Risk--> LDL AND HDL PARTICLES Percentile in Reference Population HDL-P (total) High 75th 50th 25th Low >34.9 34.9 30.5 26.7 <26.7 . Small LDL-P Low 25th 50th 75th High <117 117 527 839 >839 . LDL Size <-Large (Pattern A)- > <-Small (Pattern B)-> 23.0 20.6 20.5 19.0 SMALL LDL-P 755 nmol/L (Abnormal) HDL-P TOTAL 49.5 umol/L (Normal) LD HD PARTICLES . (Normal) LDL-P 1442 nmol/L (Abnormal) Comments: Low < 1000 Moderate 1000 - 1299 Borderline-High 1300 - 1599 High 1600 - 2000 Very High > 2000 TRIGLYCERIDES 81 mg/dL (Normal) HDL-C 69 mg/dL (Normal) LDL-C 126 mg/dL (Abnormal) Comments: LDL-C is inaccurate if patient is nonfasting. . Optimal < 100 Above optimal 100 - 129 Borderline 130 - 159 High 160 - 189 Very high > 189 . CHOLESTEROL TOT 211 mg/dL (Abnormal) LIPIDS . (Normal) :15 CBCD,SMEAR DIFF RED CELL MORPH SeeNote {NORMAL} (Normal) Comments: Result: NORM C+C CELLS COUNTED 100 (Normal) EOS 5 % (Normal) Range: 0-5 HCT 41.1 % (Normal) Range: 37-47 HGB 13.5 g/dL (Normal) Range: 12.0-16.0 LYMPH 36 % (Normal) Range: 19-41 MCH 28.5 pg (Normal) Range: 27.0-32.0 MCHC 33.0 g/dL (Normal) Range: 32-36 MCV 86.6 fL (Normal) Range: 81-99 MONOCYTE 6 % (Normal) Range: 0-10 PLT 312 K/mm3 (Normal) Range: 150-450 PLT EST SeeNote (Normal) Comments: Result: ADEQUATE RDW 13.2 % (Normal) Range: 11.6-14.6 SEGS 53 % (Normal) Range: 47-70 RBC 4.74 {M/mm3} (Normal) Range: 4.2-5.4 WBC 6.5 K/mm3 (Normal) Range: 4.4-11.0 :15 COMP METABOLIC GAP 7 (Normal) Range: 5-15 A/G 1.2 {RATIO} (Normal) Range: 0.9-2.4 ALB 3.8 g/dL (Normal) Range: 3.4-5.0 ALK P 84 U/L (Normal) Range: 50-136 ALT 22 U/L (Normal) Range: 12-78 AST 9 U/L (Abnormal) Range: 15-37 BUN 11 mg/dL (Normal) Range: 7-18 BUN/CRE 15.7 {RATIO} (Normal) Range: 10-20 CA 8.9 mg/dL (Normal) Range: 8.5-10.1 CL 104 mmol/L (Normal) Range: 98-107 CO2 29.0 mmol/L (Normal) Range: 21.0-32.0 CREAT,SERUM 0.7 mg/dL (Normal) Range: 0.6-1.0 EST GFR 91 mL/min (Normal) EST GFR - AA 110 mL/min (Normal) GLOB 3.2 g/dL (Normal) Range: 2.7-4.2 K 4.0 mmol/L (Normal) Range: 3.5-5.1 NA 140 mmol/L (Normal) Range: 136-145 T BILI 0.30 mg/dL (Normal) Range: 0.00-1.00 T PROT 7.0 g/dL (Normal) Range: 6.4-8.2 GLU 84 mg/dL (Normal) Range: 70-110 87-Ujy-71509:15 COMPLETE UA BACTERIA RARE {/hpf} (Normal) MUCUS, URINE 0 SEEN {/hpf} (Normal) RENAL EPI SeeNote {/hpf} (Normal) Range: 0-5 Comments: Result: 0-5 SEEN SQUAM EPI SeeNote {/hpf} (Normal) Range: 5-10 Comments: Result: 0-5 SEEN LEUK ESTERASE SeeNote (Normal) Comments: Result: NEGATIVE NITRITE UR SeeNote (Normal) Comments: Result: NEGATIVE OCCULT BLOOD-UR SeeNote (Normal) Comments: Result: NEGATIVE pH UR 6.0 (Normal) Range: 5.0-8.0 PROT DIPSTX SeeNote (Normal) Comments: Result: NEGATIVE RBC-UA SeeNote {/hpf} (Normal) Range: 0-5 Comments: Result: 0-5 SEEN SP.GR. DIPSTX 1.020 (Normal) Range: 1.002-1.030 UROBILI 0.2 EU/dl (Normal) Range: 0.2 - 1.0 WBC SeeNote {/hpf} (Normal) Range: 0-5 Comments: Result: 0-5 SEEN BILIRUBIN URINE SeeNote (Normal) Comments: Result: NEGATIVE CLARITY CLEAR (Normal) GLUCOSE, UR SeeNote (Normal) Comments: Result: NEGATIVE KETONE UR SeeNote mg/dL (Normal) Comments: Result: NEGATIVE COLOR YELLOW (Normal) :15 LIPID CHOL 162 mg/dL (Normal) Comments: <200 mg/dL Hisghnnpj020-349 mg/dL Borderline>240 mg/dL High Risk HDL 57 mg/dL (Normal) Comments: Reference RangeHDL <40 mg/dL Low HDL CholesterolHDL >or= 60 mg/dL High HDL Cholesterol LDL 89 mg/dL (Normal) Range: 0-130 TRIG 80 mg/dL (Normal) Comments: Serum Triglycerides Reference IntervalNormal <150 mg/dLBorderline high 150 - 199 mg/dLHigh 200 - 499 mg/ dLVery High > or = 500 mg/dL VLDL 16 mg/dL (Normal) Range: 5-40 :45 BMP BUN 12 mg/dL (Normal) Range: 7-18 BUN/CRE 15.0 {RATIO} (Normal) Range: 10-20 CA 9.1 mg/dL (Normal) Range: 8.5-10.1 CL 107 mmol/L (Normal) Range: 98-107 CO2 27.8 mmol/L (Normal) Range: 21.0-32.0 CREAT,SERUM 0.8 mg/dL (Normal) Range: 0.6-1.0 GAP 5 (Normal) Range: 5-15 GLU 104 mg/dL (Normal) Range: 70-110 K 3.6 mmol/L (Normal) Range: 3.5-5.1 NA 140 mmol/L (Normal) Range: 136-145 :12 CBCD,SMEAR DIFF CELLS COUNTED 100 (Normal) EOS 4 % (Normal) Range: 0-5 HCT 40.4 % (Normal) Range: 37-47 HGB 13.7 g/dL (Normal) Range: 12.0-16.0 LYMPH 27 % (Normal) Range: 19-41 MCH 28.7 pg (Normal) Range: 27.0-32.0 MCHC 33.9 g/dL (Normal) Range: 32-36 MCV 84.4 fL (Normal) Range: 81-99 MONOCYTE 5 % (Normal) Range: 0-10 PLT 377 K/mm3 (Normal) Range: 150-450 PLT EST SeeNote (Normal) Comments: Result: ADEQUATE RBC 4.79 {M/mm3} (Normal) Range: 4.2-5.4 RDW 12.6 % (Normal) Range: 11.6-14.6 RED CELL MORPH SeeNote {NORMAL} (Normal) Comments: Result: NORM C+C SEGS 64 % (Normal) Range: 47-70 WBC 9.2 K/mm3 (Normal) Range: 4.4-11.0 :12 COMP METABOLIC A/G 1.1 {RATIO} (Normal) Range: 0.9-2.4 ALB 3.7 g/dL (Normal) Range: 3.4-5.0 ALK P 98 U/L (Normal) Range: 50-136 ALT 32 U/L (Normal) Range: 30-65 AST 19 U/L (Normal) Range: 15-37 BUN 11 mg/dL (Normal) Range: 7-18 BUN/CRE 12.2 {RATIO} (Normal) Range: 10-20 CA 9.3 mg/dL (Normal) Range: 8.5-10.1 CL 102 mmol/L (Normal) Range: 98-107 CO2 25.7 mmol/L (Normal) Range: 21.0-32.0 CREAT,SERUM 0.9 mg/dL (Normal) Range: 0.6-1.0 GAP 8 (Normal) Range: 5-15 GLOB 3.3 g/dL (Normal) Range: 2.7-4.2 GLU 88 mg/dL (Normal) Range: 70-110 K 3.3 mmol/L (Abnormal) Range: 3.5-5.1 NA 136 mmol/L (Normal) Range: 136-145 T BILI 0.32 mg/dL (Normal) Range: 0.00-1.00 T PROT 7.0 g/dL (Normal) Range: 6.4-8.2 :12 LIPID CHOL 168 mg/dL (Normal) Comments: <200 mg/dL Desirable 200-240 mg/dL Borderline >240 mg/dL High Risk HDL 50 mg/dL (Normal) Comments: Reference Range HDL <40 mg/dL Low HDL Cholesterol HDL >or= 60 mg/dL High HDL Cholesterol LDL 88 mg/dL (Normal) Range: 0-130 TRIG 152 mg/dL (Normal) Comments: Serum Triglycerides Reference Interval Normal <150 mg/dL Borderline high 150 - 199 mg/dL High 200 - 499 mg/dL Very High > or = 500 mg/dL VLDL 30 mg/dL (Normal) Range: 5-40 :12 ROUTINE UA BILIRUBIN URINE SeeNote (Normal) Comments: Result: NEGATIVE CLARITY CLEAR (Normal) COLOR YELLOW (Normal) GLUCOSE, UR SeeNote (Normal) Comments: Result: NEGATIVE KETONE UR TRACE mg/dL (Abnormal) LEUK ESTERASE TRACE (Abnormal) NITRITE UR SeeNote (Normal) Comments: Result: NEGATIVE OCCULT BLOOD-UR SeeNote (Normal) Comments: Result: NEGATIVE pH UR 6.5 (Normal) Range: 5.0-8.0 PROT DIPSTX TRACE (Normal) SP.GR. DIPSTX 1.020 (Normal) Range: 1.002-1.030 UROBILI 0.2 EU/dl (Normal) Range: 0.2 - 1.0 :22 CBC HCT 40.3 % (Normal) Range: 37-47 HGB 13.5 g/dL (Normal) Range: 12.0-16.0 MCH 28.8 pg (Normal) Range: 27.0-32.0 MCHC 33.5 g/dL (Normal) Range: 32-36 MCV 86.1 fL (Normal) Range: 81-99 MPV 8.6 fL (Normal) Range: 6.5-12.0 PLT 351 K/mm3 (Normal) Range: 150-450 RBC 4.68 {M/mm3} (Normal) Range: 4.2-5.4 RDW 13.0 % (Normal) Range: 11.6-14.6 WBC 5.9 K/mm3 (Normal) Range: 4.4-11.0 :22 COMP METABOLIC A/G 1.2 {RATIO} (Normal) Range: 0.9-2.4 ALB 3.9 g/dL (Normal) Range: 3.4-5.0 ALK P 97 U/L (Normal) Range: 50-136 ALT 31 [iU]/L (Normal) Range: 30-65 AST 23 U/L (Normal) Range: 15-37 BUN 7 mg/dL (Normal) Range: 7-18 BUN/CRE 11.7 {RATIO} (Normal) Range: 10-20 CA 8.8 mg/dL (Normal) Range: 8.5-10.1 CL 106 mmol/L (Normal) Range: 98-107 CO2 28.1 mmol/L (Normal) Range: 21.0-32.0 Comments: Please Note Reference Interval Change CREAT,SERUM 0.6 mg/dL (Normal) Range: 0.6-1.0 GAP 9 (Normal) Range: 5-15 GLOB 3.2 g/dL (Normal) Range: 2.7-4.2 Comments: Please Note Reference Interval Change GLU 84 mg/dL (Normal) Range: 70-110 K 4.1 mmol/L (Normal) Range: 3.5-5.1 NA 143 mmol/L (Normal) Range: 136-145 T BILI 0.52 mg/dL (Normal) Range: 0.00-1.00 T PROT 7.1 g/dL (Normal) Range: 6.4-8.2 :22 LIPID CHOL 141 mg/dL (Normal) Comments: <200 mg/dL Desirable 200-240 mg/dL Borderline >240 mg/dL High Risk HDL 45 mg/dL (Normal) Comments: Reference Range HDL <40 mg/dL Low HDL Cholesterol HDL >or= 60 mg/dL High HDL Cholesterol LDL 82 mg/dL (Normal) Range: 0-130 TRIG 69 mg/dL (Normal) Comments: Serum Triglycerides Reference Interval Normal <150 mg/dL Borderline high 150 - 199 mg/dL High 200 - 499 mg/dL Very High > or = 500 mg/dL VLDL 14 mg/dL (Normal) Range: 5-40 97-Vjv-[id number]:00 LQD PAP [id number] Comments: CYTOLOGY INFORMATION:- CLINICAL INFORMATION: - DATE LMP/MENOPAUSE: MENOPAUSE- COLLECTION VIAL: Thin Prep Vial- 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 Endocervical component may not bedistinguished in cases of atrophy. COMM . (Normal) DIAGN Comment (Normal) Comments: NEGATIVE FOR INTRAEPITHELIAL LESION AND MALIGNANCY.CELLULAR CHANGES ASSOCIATED WITH ATROPHY ARE PRESENT. HPV RFLX Comment (Normal) Comments: The HPV DNA reflex criteria were not met with this specimenresult therefore, no HPV testing was performed. .Performed At: [facility] [id number] [place] [address] MURPHY Corona [id number] PAPSMR Comment (Normal) Comments: The Pap smear is a screening test designed to aid in thedetection of premalignant and malignant conditions of theuterine cervix. It is not a diagnostic procedure andshould not be used as the sole means of detecting cervicalcancer. Both false-positive and false-negative reports dooccur. . PERFORM Comment (Normal) Comments: Leda Zhao, Predatory Hunter (ASCP) Plan of Care Name Dates Details Instructions Nonsmoker : Follow up if no improvement or if symptoms worsen Indication: Nonsmoker BMI 27.0-27.9,adult : Eprescribed prescriptions (G8553) Indication: BMI 27.0-27.9,adult Hypertension, benign : Follow up in 6 months Indication: Hypertension, benign Hypertension, benign : Diet, Exercise, and Wt loss Indication: Hypertension, benign Hypertension, benign : HTN/CAD Red Flags Indication: Hypertension, benign Eosinophilic esophagitis : Continue Current Prescription(s) Indication: Eosinophilic esophagitis Hypertension, benign : Follow up in 6 months Indication: Hypertension, benign Hypertension, benign : Reviewed Lab Indication: Hypertension, benign Subclinical hypothyroidism : Continue Current Prescription(s) Indication: Subclinical hypothyroidism Subclinical hypothyroidism : Reviewed Lab Indication: Subclinical hypothyroidism Hypertension, benign : Diet, Exercise, and Wt loss Indication: Hypertension, benign Hypertension, benign : HTN/CAD Red Flags Indication: Hypertension, benign GERD (gastroesophageal reflux disease) : GERD Education Indication: GERD (gastroesophageal reflux disease) Nonsmoker : Eprescribed prescriptions (G8553) Indication: Nonsmoker Hypertension, benign : HTN/CAD Red Flags Indication: Hypertension, benign Hypertension, benign : Diet, Exercise, and Wt loss Indication: Hypertension, benign Hypertension, benign : BP MONITORING - SELF Indication: Hypertension, benign Encounter for annual general medical examination with abnormal findings in adult : *Weight Loss Discussion Indication: Encounter for annual general medical examination with abnormal findings in adult Encounter for annual general medical examination with abnormal findings in adult : fall reduction handout Indication: Encounter for annual general medical examination with abnormal findings in adult Encounter for annual general medical examination with abnormal findings in adult : elderly packet given Indication: Encounter for annual general medical examination with abnormal findings in adult Encounter for annual general medical examination with abnormal findings in adult : advance planning information Indication: Encounter for annual general medical examination with abnormal findings in adult Encounter for annual general medical examination with abnormal findings in adult : Self breast exam Indication: Encounter for annual general medical examination with abnormal findings in adult Encounter for annual general medical examination with abnormal findings in adult : *Well Female Maintenance (KF) Indication: Encounter for annual general medical examination with abnormal findings in adult Encounter for screening for malignant neoplasm of colon (Renamed from Special screening for malignant neoplasms, colon) : *Colon Cancer Screening Indication: Encounter for screening for malignant neoplasm of colon (Renamed from Special screening for malignant neoplasms, colon) Hypertension, benign : Reviewed Lab Indication: Hypertension, benign Hypertension, benign : Diet, Exercise, and Wt loss Indication: Hypertension, benign Hypertension, benign : HTN/CAD Red Flags Indication: Hypertension, benign Hypertension, benign : Continue Current Prescription(s) Indication: Hypertension, benign Abnormal TSH : Reviewed Lab Indication: Abnormal TSH Vitamin D deficiency : Follow up in 6 months- gen med Indication: Vitamin D deficiency Encounter for screening for malignant neoplasm of colon (Renamed from Special screening for malignant neoplasms, colon) : *Colon Cancer Screening Indication: Encounter for screening for malignant neoplasm of colon (Renamed from Special screening for malignant neoplasms, colon) Encounter for health maintenance examination with abnormal findings : HPV Vaccine Information 2005 Indication: Encounter for health maintenance examination with abnormal findings Encounter for health maintenance examination with abnormal findings : Self breast exam Indication: Encounter for health maintenance examination with abnormal findings Encounter for health maintenance examination with abnormal findings : *Well Female Maintenance (SMC) Indication: Encounter for health maintenance examination with abnormal findings Encounter for health maintenance examination with abnormal findings : Pap/Pelvic/Bimanual/Rectal/Breast Exam was done. Indication: Encounter for health maintenance examination with abnormal findings Bronchitis : *Antibiotic Usage Education - Female Indication: Bronchitis Bronchitis : *URI Treatment Indication: Bronchitis Bronchitis : *URI Symptoms Indication: Bronchitis Bronchitis : Eprescribed prescriptions (G8553) Indication: Bronchitis Encounter for screening mammogram for breast cancer (Renamed from Encounter for screening mammogram for malignant neoplasm of breast) : Eprescribed prescriptions (G8553) Indication: Encounter for screening mammogram for breast cancer (Renamed from Encounter for screening mammogram for malignant neoplasm of breast) Cough : Eprescribed prescriptions (G8553) Indication: Cough Cough : Follow up in 1 week Indication: Cough Cough : Eprescribed prescriptions (G8553) Indication: Cough Cough : Follow up if no improvement or if symptoms worsen Indication: Cough Cough : Eprescribed prescriptions (G8553) Indication: Cough Encounter for health maintenance examination with abnormal findings : fall reduction handout Indication: Encounter for health maintenance examination with abnormal findings Encounter for health maintenance examination with abnormal findings : elderly packet given Indication: Encounter for health maintenance examination with abnormal findings Encounter for health maintenance examination with abnormal findings : advance planning information Indication: Encounter for health maintenance examination with abnormal findings Rash/skin eruption : Eprescribed prescriptions (G8553) Indication: Rash/skin eruption Rash/skin eruption : Itching: rash Indication: Rash/skin eruption Rash/skin eruption : Eprescribed prescriptions (G8553) Indication: Rash/skin eruption Cough : Eprescribed prescriptions (G8553) Indication: Cough Wheeze : Follow up if no improvement or if symptoms worsen Indication: Wheeze Bronchitis : *URI Treatment Indication: Bronchitis Bronchitis : *URI Symptoms Indication: Bronchitis Bronchitis : *Antibiotic Usage Education - Female Indication: Bronchitis Acute bronchitis : Cough: cold Indication: Acute bronchitis Acute bronchitis : Cough: coughing Indication: Acute bronchitis Acute bronchitis : Eprescribed prescriptions (G8553) Indication: Acute bronchitis GERD (gastroesophageal reflux disease) : Eprescribed prescriptions (G8553) Indication: GERD (gastroesophageal reflux disease) Need for prophylactic vaccination and inoculation against influenza : Flu (Influenza) *: flu shot Indication: Need for prophylactic vaccination and inoculation against influenza GERD (gastroesophageal reflux disease) : Heartburn *: heartburn Indication: GERD (gastroesophageal reflux disease) Rash/skin eruption : Follow up if no improvement or if symptoms worsen Indication: Rash/skin eruption Acute bronchitis : *URI Treatment Indication: Acute bronchitis Acute bronchitis : URI Symptoms Indication: Acute bronchitis Hypertension, benign : FOLLOW UP IN 1 YEAR Indication: Hypertension, benign Planned Observations Sputum Culture ([id number])Indication: Bronchitis On: 14-Jun-20189:25 Request Culture, Aerobic, Bacterial ID ([id number])Indication: Vaginal odor On: 58-Pwl-339544:09 Request HPV automatic (42833)Indication: Screening for HPV (human papillomavirus) (Renamed from Encounter for screening for human papillomavirus (HPV)) On: 22-Tux-204947:09 Request T3, FREE (TRIDOTHYRONINE) (08981)Indication: Subclinical hypothyroidism On: 18-Wwf-549084:47 Request T4, FREE (THYROXINE) (75161)Indication: Subclinical hypothyroidism On: :47 Request TSH (THYROID STIMULATING HORMONE) (67350)Indication: Subclinical hypothyroidism On: :46 Request T4, FREE (THYROXINE) (40123)Indication: Subclinical hypothyroidism On: 55-Kno-407256:04 Request T3, FREE (TRIDOTHYRONINE) (11879)Indication: Subclinical hypothyroidism On: 43-Emw-940920:04 Request MICROALBUMIN: CREATININE RATIO (06342) AND (46182)Indication: Hypertension, benign On: : Request VITAMIN B12 AND FOLATES (18554)Indication: Hypertension, benign On: : Request CALCIFEDIOL (31357)Indication: Hypertension, benign On: : Request TSH (THYROID STIMULATING HORMONE) (01899)Indication: Subclinical hypothyroidism On: : Request METABOLIC PANEL, COMPREHENSIVE (92300)Indication: Hypertension, benign On: : Request LIPID PANEL (02392)Indication: Hypertension, benign On: : Request CBC, PLATELETS & AUT DIFF ([id number])Indication: Hypertension, benign On: :10 Request Anti-TPO Antibody (17526)Indication: Abnormal TSH On: :06 Request T4, FREE (THYROXINE) (88686)Indication: Abnormal TSH On: :06 Request T3, FREE (TRIDOTHYRONINE) (61708)Indication: Abnormal TSH On: :06 Request MICROALBUMIN: CREATININE RATIO (11764) AND (22295)Indication: Hypertension, benign On: 34 Request HGB A1C (23184)Indication: Hypertension, benign On: :34 Request VITAMIN B12 AND FOLATES (71036)Indication: Hypertension, benign On: Request CALCIFEDIOL (77924)Indication: Hypertension, benign On: : Request TSH (THYROID STIMULATING HORMONE) ([id number])Indication: Hypertension, benign On: : Request LIPID PANEL (98238)Indication: Hypertension, benign On: :34 Request METABOLIC PANEL, COMPREHENSIVE (17630)Indication: Hypertension, benign On: :33 Request CBC, PLATELETS & AUT DIFF ([id number])Indication: Hypertension, benign On: :33 Request URINALYSIS, W/ MICRO (27916)Indication: Hypertension, benign On: 1-Yyr-789550:14 Request METABOLIC PANEL, COMPREHENSIVE (24138)Indication: Hypertension, benign On: 6-Jwk-479237:14 Request LIPID PANEL ([id number])Indication: Hypertension, benign On: :14 Request CBC W/AUTO DIFF WBC ([id number])Indication: Hypertension, benign On: :14 Request URINALYSIS, W/ MICRO ([id number])Indication: Hypertension, benign On: :51 Request METABOLIC PANEL, COMPREHENSIVE (27096)Indication: Hypertension, benign On: :51 Request LIPID PANEL (43413)Indication: Hypertension, benign On: :51 Request CBC WITH MANUAL DIFF ([id number])Indication: Hypertension, benign On: :51 Request URINALYSIS, W/ MICRO ([id number])Indication: Hypertension, benign On: :48 Request METABOLIC PANEL, COMPREHENSIVE ([id number])Indication: Hypertension, benign On: :48 Request CBC WITH MANUAL DIFF ([id number])Indication: Hypertension, benign On: :48 Request LIPOPROTEIN, BLD, BY NMR ([id number])Indication: Hypertension, benign On: :48 Request URINALYSIS, W/ MICRO ([id number])Indication: Hypertension, benign On: :08 Request METABOLIC PANEL, COMPREHENSIVE (38884)Indication: Hypertension, benign On: 67-Lnc-121830:08 Request LIPID PANEL (12397)Indication: Hypertension, benign On: :08 Request CBC WITH MANUAL DIFF ([id number])Indication: Hypertension, benign On: :08 Request URINALYSIS W/O MICRO ([id number])Indication: Hypertension, benign On: 42-Cqg-867793:00 Request METABOLIC PANEL, COMPREHENSIVE (89889)Indication: Hypertension, benign On: 49-Off-624329:00 Request LIPID PANEL (26925)Indication: Hypertension, benign On: 90-Lwx-836847:00 Request CBC WITH MANUAL DIFF ([id number])Indication: Hypertension, benign On: 89-Lbr-983661:00 Request CBC (Auto) ([id number])Indication: Hypertension, benign On: :51 Request Metabolic Panel, Comprehensive (80674)Indication: Hypertension, benign On: :51 Request Lipid Panel (38742)Indication: Hypertension, benign On: :51 Request Planned Procedures Aerosol Treatment ([id number])By: Asuncion On: 14-Jun-2018 Intent Samantha PATRICIA Flu Vaccine (Quadrivalent) 36559Vy: On: 19-May-2018 Intent Nikky Tabor DO, DO, Comments: Lot #[id number]-L dltd, IMDose prefilled syringegiven by: Al VARGAS reviewed and ABN signed Nikky ELECTROCARDIOGRAM, COMPLETE (ECG) On: 16-Nov-2017 Intent (74124)By: Nikky Tabor DO Comments: nsr no acute chg Nikky Tabor DO DEXA SCAN AXIAL SKELETON (65031)By: On: 10-Nov-2017 Intent Nikky Tabor DO, DO, Comments: due after 08/20/18 Nikky SCREENING DIGITAL TOMOSYNTHESIS OF On: 10-Nov-2017 Intent BREAST ([id number])By: Nikky Tabor DO, DO, Kathleen Flu Vaccine (Quadrivalent) 97919Mb: On: 08-Jul-2017 Intent Visit, Nurse Comments: Lot #:[id number] date:02/21/18Amount given:0.5mlRoute: IMSite given: left deltoidGiven by: JAKOB Castellanos VAC ADLT/IMUMNOSPR, SBC/INTRM On: 02-Nov-2016 Intent (74619)By: Nikky Tabor DO Comments: Lot:[id number]:01/23/18Dose:0.5mg Route:im Site:r armGiven By:MIA signed Nikky Tabor DO Pelvic and Breast, Medicare On: 02-Nov-2016 Intent (G0101)By: Nikky Tabor DO, DO, Kathleen Aerosol Treatment (50190)By: Yoanna On: 08-Sep-2016 Intent Onofre NEELY Solu -Medrol Injection, 125 mg On: 19-May-2016 Intent (J2930)By: Onfore Lenz MD Comments: [id number] hip, ImMLONG Flu Vaccine (Quadrivalent) 60502Kw: On: 19-May-2016 Intent Onofre Lenz MD Comments: FLUlot: [id number]:03/05/17site:Lt deltoidroute:IMdose:.5mlDEMICK, MA Bone Density StudyBy: Yoanna NEELY, On: 19-May-2016 Intent Onofre MAMMOGRAM, SCREENING, BOTH BREAST On: 19-May-2016 Intent ([id number])By: Onofre Lenz MD Comments: due after 08/20/16 Aerosol Treatment ([id number])By: Asuncion On: 09-Dec-2015 Intent Samantha PATRICIA Nuclear Medicine - HIDA w/CPKBy: On: 31-Oct-2015 Intent Felisha Solorzano MD Comments: if us negative of GB Ultrasound - GallbladderBy: Jeanine On: 31-Oct-2015 Intent Felisha NEELY PNEUM VAC ADLT/IMUMNOSPR, SBC/INTRM On: 31-Oct-2015 Intent (42605)By: Felisha Solorzano MD Flu Vaccine (Quadrivalent) 07604Lt: On: 31-Oct-2015 Intent Felisha Solorzano MD Comments: Lot #:[id number] date:Amount given:0.5mlRoute: IMSite given:L DltdGiven by:VIS and ABN signed Quad Flu Solu -Medrol Injection, 125 mg On: 23-Apr-2015 Intent ([id number])By: Felisha Solorzano MD Solu -Medrol Injection, 125 mg On: 18-Mar-2015 Intent ([id number])By: Catherine Noel DO Comments: lot:[id number]:route:IMdose:125MGsite: R glutGiven by: BELLE Teague Spirometry ([id number])By: Jeanine NEELY, On: 07-Feb-2015 Intent Felisha Owusu Comments: see scanned document of test done to see results reviewed today with patient Radiology - ChestBy: Jeanine NEELY, On: 07-Feb-2015 Intent Felisha Owusu Inhaler Demonstration (63807)By: On: 01-Feb-2015 Intent Barbaileenzohra MANAGER MATH, Kasie Aerosol Treatment (69661)By: Slarb On: 01-Feb-2015 Intent Ashley DOUGLASS TDAP VACCINE >7 IM (29490)By: On: 10-Jul-2014 Intent Felisha Solorzano MD Comments: 7535x2.15.15prefilled syringeL Dltd, IMAS, LPNABN and VIS signed IMMUNIZ ADMNIN, 1 VAC, SNGL/COMBO On: 14-Jun-2014 Intent (04259)By: Visit, Nurse FLU VAC, SPLIT, >3 YEARS, INTRAMUSC On: 14-Jun-2014 Intent (10446)By: Visit, Nurse Comments: Lot:[id number]/22Amt:0.5mlRoute:IMSite: L DltdGiven By: Cassi Kingston CMAVIS signed IMMUNIZ ADMNIN, 1 VAC, SNGL/COMBO On: 21-Jun-2012 Intent (49606)By: June Robertson LPN Comments: Lot #[id number]-L dltd, IMDose prefilled syringegiven by:JMVIS signed FLU VAC, SPLIT, >3 YEARS, INTRAMUSC On: 21-Jun-2012 Intent (10518)By: June Robertson LPN EKG (38191)By: Felisha Solorzano MD On: 16-Jun-2011 Intent FLU VAC, SPLIT, >3 YEARS, INTRAMUSC On: 16-Jun-2011 Intent (01600)By: June Robertson LPN Comments: Lot #[id number]-L arm, IMDose prefilled given by:June IMMUNIZ ADMNIN, 1 VAC, SNGL/COMBO On: 16-Jun-2011 Intent (54294)By: Long DRUG ABUSE TREATMENT SPECIALIST, June L EKG (90321)By: Felisha Solorzano MD On: 02-May-2010 Intent Holter Monitor 24 hrsBy: Jeanine On: 02-May-2010 Intent Felisha NEELY Echo CompleteBy: Felisha Solorzano MD On: 02-May-2010 Intent Solu -Medrol Injection, 125 mg On: 27-Jan-2010 Intent ([id number])By: Felisha Solorzano MD EKG ([id number])By: Felisha Solorzano MD On: 23-Sep-2009 Intent TDAP VACCINE >7 IM (00475)By: On: 20-Sep-2009 Intent Felisha Solorzano MD Comments: Lot #: [id number] date: mount given: 0.5 mlRoute: IMSite given: right deltoidGiven by: Zohra Bundy RN EKG (21880)By: Felisha Solorzano MD On: 19-Jul-2008 Intent FLU VAC, SPLIT, >3 YEARS, INTRAMUSC On: 04-Jul-2007 Intent (77847)By: ZEINAB Camacho IMMUNIZ ADMNIN, 1 VAC, SNGL/COMBO On: 04-Jul-2007 Intent (07792)By: ZEINAB Camacho Comments: Lot #:[id number] Expiration date:ount given:.5ml Route: IMSite given:right deltoid Given by: valeriassell TD Injection , IM (56355)By: On: 31-Dec-2006 Intent Felisha Solorzano MD EKG (69295)By: Felisha Solorzano MD On: 31-Dec-2006 Intent Venous Doppler - UpperBy: Jeanine On: 31-Dec-2006 Intent Felisha NEELY Comments: left Planned Medications INJECTION, METHYLPREDNISOLONE SODIUM SUCCINATE, UP TO 125 MG Ordered: 18-Mar-2015 Pending Catherine Noel DO INJECTION, METHYLPREDNISOLONE SODIUM SUCCINATE, UP TO 125 MG Ordered: 23-Apr-2015 Pending Felisha Solorzano MD INJECTION, METHYLPREDNISOLONE SODIUM SUCCINATE, UP TO 125 MG Ordered: 19-May-2016 Pending Onofre Lenz MD Instructions Name Dates Details BMI 27.0-27.9,adult : How to access health information online Indication: BMI 27.0-27.9,adult BMI 27.0-27.9,adult : How to access health information online - Detail Indication: BMI 27.0-27.9,adult BMI 27.0-27.9,adult : Patient Instructions Indication: BMI 27.0-27.9,adult Need for prophylactic vaccination and inoculation against influenza (Renamed from Need for immunization against influenza) : How to access health information online Indication: Need for prophylactic vaccination and inoculation against influenza (Renamed from Need for immunization against influenza) Need for prophylactic vaccination and inoculation against influenza (Renamed from Need for immunization against influenza) : How to access health information online - Detail Indication: Need for prophylactic vaccination and inoculation against influenza (Renamed from Need for immunization against influenza) Need for prophylactic vaccination and inoculation against influenza (Renamed from Need for immunization against influenza) : Patient Instructions Indication: Need for prophylactic vaccination and inoculation against influenza (Renamed from Need for immunization against influenza) Nonsmoker : How to access health information online Indication: Nonsmoker Nonsmoker : How to access health information online - Detail Indication: Nonsmoker Nonsmoker : Patient Instructions Indication: Nonsmoker Nonsmoker : How to access health information online Indication: Nonsmoker Nonsmoker : How to access health information online - Detail Indication: Nonsmoker Nonsmoker : Patient Instructions Indication: Nonsmoker Nonsmoker : How to access health information online Indication: Nonsmoker Nonsmoker : How to access health information online - Detail Indication: Nonsmoker Nonsmoker : Patient Instructions Indication: Nonsmoker Bronchitis : How to access health information online - Detail Indication: Bronchitis Bronchitis : Patient Instructions Indication: Bronchitis Encounter for screening mammogram for breast cancer (Renamed from Encounter for screening mammogram for malignant neoplasm of breast) : How to access health information online Indication: Encounter for screening mammogram for breast cancer (Renamed from Encounter for screening mammogram for malignant neoplasm of breast) Encounter for screening mammogram for breast cancer (Renamed from Encounter for screening mammogram for malignant neoplasm of breast) : How to access health information online - Detail Indication: Encounter for screening mammogram for breast cancer (Renamed from Encounter for screening mammogram for malignant neoplasm of breast) Encounter for screening mammogram for breast cancer (Renamed from Encounter for screening mammogram for malignant neoplasm of breast) : Patient Instructions Indication: Encounter for screening mammogram for breast cancer (Renamed from Encounter for screening mammogram for malignant neoplasm of breast) Acute bronchitis due to other specified organisms : Patient Instructions Indication: Acute bronchitis due to other specified organisms Cough : How to access health information online Indication: Cough Cough : How to access health information online - Detail Indication: Cough Cough : Patient Instructions Indication: Cough Cough : How to access health information online Indication: Cough Cough : How to access health information online - Detail Indication: Cough Cough : Patient Instructions Indication: Cough Cough : How to access health information online - Detail Indication: Cough Cough : How to access health information online - Detail Indication: Cough Cough : How to access health information online - Detail Indication: Cough Cough : Patient Instructions Indication: Cough Rash/skin eruption : How to access health information online Indication: Rash/skin eruption Rash/skin eruption : How to access health information online - Detail Indication: Rash/skin eruption Rash/skin eruption : Patient Instructions Indication: Rash/skin eruption Rash/skin eruption : Patient Instructions Indication: Rash/skin eruption Acute bronchitis : Patient Instructions Indication: Acute bronchitis GERD (gastroesophageal reflux disease) : How to access health information online Indication: GERD (gastroesophageal reflux disease) GERD (gastroesophageal reflux disease) : How to access health information online - Detail Indication: GERD (gastroesophageal reflux disease) GERD (gastroesophageal reflux disease) : Patient Instructions Indication: GERD (gastroesophageal reflux disease) GERD (gastroesophageal reflux disease) : Patient Instructions Indication: GERD (gastroesophageal reflux disease) Encounters Office Visit On: 14-Jun-2018 8:50 Encounter Reason: Cough - Symptoms include cough. The cough is described as dry and productive (occasionally). Cough onset was 1 week(s) ago. Note for Cough: Coughing x 1 weekEncounter Diagnosis: BMI 27.0-27.9,adult, Nonsmoker, Bronchitis, Cough End: 14-Jun-2018 9:31 [facility] Office Visit On: 19-May-2018 9:10 Encounter Reason: Follow up for chronic medical issues - The patient feels well with minor complaints, has decreased energy level and is sleeping well. Patient has been compliant with instructions. Current medication use End: 19-May-2018 9:44 : no side effects and compliant with dosing regimen. Patient sleeps 7 hours per night. Nutrition: balanced diet and supplemental vitamins. The medical issues the patient is following up for include All identified problems below, fibromyalgia, gastric reflux and high blood pressure. blood pressure range :.Encounter Diagnosis: Need for prophylactic vaccination and inoculation against influenza (Renamed from Need for immunization against influenza), BMI 27.0-27.9,adult, Nonsmoker, Vitamin D deficiency, Eosinophilic esophagitis, Hypertension, benign, Fibromyalgia, Subclinical hypothyroidism, External hemorrhoid Comprehensive Internal Medicine Office Visit On: 16-Nov-2017 11:06 Encounter Reason: Follow up for chronic medical issues - The patient feels well with minor complaints, has decreased energy level and is sleeping well. Patient has been compliant with instructions. Current medication use End: 16-Nov-2017 12:36 : no side effects and compliant with dosing regimen. Patient sleeps 8 hours per night. Nutrition: balanced diet and supplemental vitamins. The medical issues the patient is following up for include All identified problems below, fibromyalgia, gastric reflux and high blood pressure. blood pressure range :., [ADDITIONAL REASON] Follow up tests - Date: (11/10/17). Encounter Diagnosis: Nonsmoker, BMI 27.0-27.9,adult, Vitamin D deficiency, Subclinical hypothyroidism, Hypertension, benign, GERD (gastroesophageal reflux disease), Fibromyalgia, Eosinophilic esophagitis [facility] Phone Encounter On: 15-Nov-2017 15:15 Encounter Diagnosis: Esophagitis, eosinophilic, Encounter for screening for malignant neoplasm of colon (Renamed from Special screening for malignant neoplasms, colon) End: 15-Nov-2017 15:30 [facility] Office Visit On: 10-Nov-2017 10:29 Encounter Reason: Annual Medicare Exam - The patient had reviewed and updated the family history, medication/s, past medical history and social history. Yes the patient did have a mini mental status exam done today. The End: 10-Nov-2017 13:45 activities of daily living the patient needs help with are none. The patient has missed or ran out of medications to soon and driven in past 6 months, but the patient has not had fecal incontinence, had urinary incontinence, fallen in the past 6 months, gotten lost, has a medalert necklace or bracelet, put area rugs through house or put handrails in bathroom. The patient has completed the following pr eventative measures: PAP smear (2017), mammography (2017) and colonoscopy (?). The patient does have durable power of patent prosecution attorney and living will. The patient has noticed nothing from the geriatic depressi on scale. Other providers contributing to the patient's care are philosophy and religion instructor.Encounter Diagnosis: BMI 27.0-27.9,adult, Nonsmoker, Encounter for annual general medical examination with abnormal findings in adult, Encounter for screening mammogram for breast cancer (Renamed from Encounter for screening mammogram for malignant neoplasm of breast), Post-menopausal, Encounter for screening for malignant neoplasm of colon (Renamed from Special screening for malignant neoplasms, colon), Hypertension, benign, Subclinical hypothyroidism, Vitamin D deficiency [facility] Office Visit On: 08-Jul-2017 11:06 Encounter Reason: Nurse procedure visit - There has been no associated dizziness, light headedness, new chest pain, new shortness of breath or other. Reason for visit: other (flu shot).Encounter Diagnosis: End: 08-Jul-2017 11:54 Need for prophylactic vaccination and inoculation against influenza (Renamed from Need for immunization against influenza) [facility] Phone Encounter On: 23-Dec-2016 13:08 Encounter Diagnosis: H/O motion sickness End: 23-Dec-2016 13:11 [facility] Office Visit On: 02-Nov-2016 8:57 Encounter Reason: Annual Medicare Exam - The patient had reviewed and updated the family history, medication/s, past medical history and social history. Yes the patient did have a mini mental status exam done today. The End: 02-Nov-2016 16:49 activities of daily living the patient needs help with are none. The patient has driven in past 6 months, but the patient has not had fecal incontinence, had urinary incontinence, missed or ran out of m edications to soon, fallen in the past 6 months, gotten lost, has a medalert necklace or bracelet, put area rugs through house or put handrails in bathroom. The patient has completed the following preve ntative measures: PAP smear (06/20), mammography (07/22) and colonoscopy (?). The patient does have durable power of patent prosecution attorney and living will. The patient has noticed nothing from the geriatic depressio n scale. Other providers contributing to the patient's care are philosophy and religion instructor., [ADDITIONAL REASON] Follow up for chronic medical issues - The patient feels well with no complaints . Patient has been compliant with instructions. Current medication use: no side effects. Patient sleeps 7 hours per night. Encounter Diagnosis: Encounter for health maintenance examination with abnormal findings, BMI 28.0-28.9,adult, Nonsmoker, Encounter for screening for malignant neoplasm of colon (Renamed from Special screening for malignant neoplasms, colon), Vitamin D deficiency, Need for prophylactic vaccination with Streptococcus pneumoniae (Pneumococcus) and Influenza vaccines, Vaginal discharge, Screening for HPV (human papillomavirus) (Renamed from Encounter for screening for human papillomavirus (HPV)), Vaginal itching, Vaginal odor, Vaginal pain, Subclinical hypothyroidism, Hypertension, benign, Abnormal TSH, Fibromyalgia, Hyperglycemia [facility] Office Visit On: 08-Sep-2016 13:52 Encounter Reason: Cough - Symptoms include cough. The cough is described as brassy and productive (yellowish). Cough onset was gradual 3 week(s) ago. Symptoms are described as worsening. Symptoms are relieved by cough medicine (cheratussin). End: 08-Sep-2016 16:41 Encounter Diagnosis: BMI 28.0-28.9,adult, Cough, Bronchitis [facility] Office Visit On: 19-May-2016 10:52 Encounter Reason: Follow up tests - Date: (05.14.16)., [ADDITIONAL REASON] Follow up for chronic medical issues - The patient feels well with minor complai End: 21-May-2016 18:05 nts and has decreased energy level. Patient has been compliant with instructions. Current medication use: no side effects, compliant with dosing regimen and considered effective by patient. Patient slee ps 8 hours per night. Impact of disease: emotional impact-mild. Nutrition: balanced diet and supplemental vitamins. The medical issues the patient is following up for include cardiac issues, fibromyalgia, gastric reflux and high cholesterol. Encounter Diagnosis: Encounter for screening mammogram for breast cancer (Renamed from Encounter for screening mammogram for malignant neoplasm of breast), Post- menopausal, Hypertension, benign, Nonsmoker, Bee sting reaction, BMI 28.0-28.9,adult, Need for prophylactic vaccination and inoculation against influenza, Fibromyalgia, Abnormal TSH, Eosinophilic esophagitis, GERD (gastroesophageal reflux disease), Subclinical hypothyroidism, Cellulitis [facility] Phone Encounter On: 14-May-2016 13:58 Encounter Diagnosis: Abnormal TSH End: 14-May-2016 14:21 [facility] Office Visit On: 07-May-2016 11:23 Encounter Reason: Cough - The last clinic visit was week(s) ago. No changes in management were made at the last visit. Symptoms include cough, while symptoms do not include chills, fever or runny nose. The cough is descr End: 07-May-2016 11:56 ibed as hacking, dry and non-productive. Cough onset was sudden 1 week(s) ago.Encounter Diagnosis: Cough, Acute bronchitis due to other specified organisms [facility] Phone Encounter On: 15-Apr-2016 16:29 Encounter Diagnosis: Unspecified Diagnosis End: 15-Apr-2016 16:34 [facility] Office Visit On: 08-Apr-2016 11:55 Encounter Reason: Follow up acute care visit - The patient improving (90% better, still a little cough). The medical issues the patient is following up for include other (cough - added back inhalers, etc ).Encounter Diagnosis: End: 08-Apr-2016 16:53 GERD (gastroesophageal reflux disease), Cough, Hypertension, benign [facility] Office Visit On: 31-Mar-2016 8:22 Encounter Reason: Cough - Cough onset was 1 week(s) ago.Encounter Diagnosis: Cough, GERD (gastroesophageal reflux disease) End: 31-Mar-2016 17:14 [facility] Office Visit On: 09-Dec-2015 13:49 Encounter Reason: Cough - Symptoms include cough. The cough is described as barky, brassy and productive (yellow). Cough onset was gradual 2 month(s) ago.Encounter Diagnosis: Cough, Acute bronchitis (466.0) End: 09-Dec-2015 14:22 [facility] Refill Request On: 04-Nov-2015 17:57 Encounter Diagnosis: Hypertension, benign End: 04-Nov-2015 17:59 [facility] Office Visit On: 31-Oct-2015 8:54 Encounter Reason: Annual Medicare Exam - The patient had reviewed and updated the family history, medication/s, past medical history and social history. Yes the patient did have a mini mental status exam done today. The End: 31-Oct-2015 10:02 activities of daily living the patient needs help with are none. The patient has driven in past 6 months, but the patient has not had fecal incontinence, had urinary incontinence, missed or ran out of m edications to soon, fallen in the past 6 months, gotten lost, has a medalert necklace or bracelet, put area rugs through house or put handrails in bathroom. The patient has completed the following preve ntative measures: PAP smear ( (Dr. Lovett) ), mammography (08-19-15) and colonoscopy (08-14-14). The patient does have durable power of patent prosecution attorney and living will. The patient has noticed nothing f rom the geriatic depression scale. Other providers contributing to the patient's care are gastrologist (Dr. Dill ) and other: (Dr. Sai Matthew).Encounter Diagnosis: Encounter for health maintenance examination with abnormal findings, BMI 27.0-27.9,adult, Need for prophylactic vaccination and inoculation against influenza, Need for prophylactic vaccination with Streptococcus pneumoniae (Pneumococcus) and Influenza vaccines, GERD (gastroesophageal reflux disease), Eosinophilic esophagitis, WWV-benechos, Lymphedema, limb, Hypertension, benign, Fibromyalgia, Nausea and vomiting in adult [facility] Office Visit On: 23-Apr-2015 11:18 Encounter Reason: Rash - Symptoms include pruritus and skin redness. The skin rash is located on the left side of the face and right side of the face. Onset was week(s) ago. The symptoms occur constantly. The patient james End: 23-Apr-2015 11:56 cribes this as unchanged. Current treatment includes antihistamines and oral corticosteroids.Encounter Diagnosis: Rash/skin eruption (782.1) [facility] Office Visit On: 18-Mar-2015 12:00 Encounter Reason: Rash - Symptoms include rash, while symptoms do not include hair changes or fever. The patient describes the rash as red, nontender and itchy. The rash is located on the left side of the face, on the le End: 18-Mar-2015 13:40 ft side of the neck, on the right side of the face and on the right side of the neck. Onset was gradual 6 week(s) ago. The rash is spreading. Symptoms are mild. Associated symptoms do not include neck s tiffness, lightheadedness, wheezing, shortness of breath, abdominal pain, nausea, vomiting or diarrhea. The patient is not currently being treated for this problem. Note for Rash: itchy works out in g [place]- tried topical otc hydrocortisone no help - otherwise nothing- has had poison vikas before- now around bottom of eyesEncounter Diagnosis: Dermatitis, Rash/skin eruption (782.1) [facility] Office Visit On: 07-Feb-2015 12:36 Encounter Diagnosis: Rash/skin eruption (782.1), Cough End: 07-Feb-2015 13:04 [facility] Office Visit On: 07-Feb-2015 11:30 Encounter Reason: Follow up for chronic medical issues - The patient feels well with minor complaints and has decreased energy level. Patient has been compliant with instructions. Current medication use: no side effects, End: 07-Feb-2015 12:30 compliant with dosing regimen and considered effective by patient. Patient sleeps 8 hours per night. Impact of disease: emotional impact-mild. Nutrition: balanced diet and supplemental vitamins. The ri dical issues the patient is following up for include cardiac issues, fibromyalgia, gastric reflux and high cholesterol.Encounter Diagnosis: Eosinophilic esophagitis, Hypertension,benign(401.1), WWV-benechos, Neck pain, Other lymphedema (457.1), Gerd (530.81), Fibromyalgia (729.1), Cough [facility] Office Visit On: 01-Feb-2015 7:22 Encounter Reason: Cough - The last clinic visit was 2 week(s) ago. No changes in management were made at the last visit. Symptoms include cough, while symptoms do not include dyspnea, wheezing, chills, fever, runny nose, End: 01-Feb-2015 8:07 stuffy nose, sore throat, myalgias, pleuritic chest pain, chest pain or vomiting. The cough is described as productive. Cough onset was gradual 2 week(s) ago. There is no known event that preceded symp ahmet onset. The cough occurs constantly. The episodes last for 14 days. Symptoms are described as moderate in severity and worsening. Symptoms are not exacerbated by smoke exposure, pollen exposure, anim al exposure, going outside, activity, lying down, cold temperature or inhaled bronchodilator use. Symptoms are not relieved by air conditioning, humidified air, warm drinks, warm weather, avoiding irrit ants, resting, lying down, sitting up, cough drops, cough medicine, acetaminophen, nonsteroidal anti-inflammatory drugs or inhaled bronchodilator use. Associated symptoms include postnasal drainage, whi le associated symptoms do not include mouth breathing, noisy breathing, rapid breathing, hoarseness, painful swallowing, eye itching, nose itching, headache, hemoptysis or night sweats. Current treatmen t includes mucolytics. By report there is good compliance with treatment. Pertinent medical history does not include asthma, chronic bronchitis, chronic obstructive pulmonary disease, cystic fibrosis, s inusitis, pulmonary disease, tuberculosis, environmental allergies, urticaria, congestive heart failure, myocardial infarction, stroke, diabetes, gastroesophageal reflux disease, neoplasm, obesity or up to date influenza vaccination. Previous presentation included a cough. This problem has not been previously evaluated. Past treatment has included mucolytics.Encounter Diagnosis: Cough, BRONCHITIS, NOT SPECIFIED ACUTE OR CHRONIC (490.), Wheeze [facility] Office Visit On: 29-Oct-2014 10:59 Encounter Reason: Cough - The onset of the cough has been 3 weeks ago. The cough is characterized as productive of mucopurulent sputum. The amount of sputum produced is scanty. The cough occurs all the time. The symptom End: 29-Oct-2014 11:40 s are not aggravated by supine posture. The symptoms have been associated with hoarseness, while the symptoms have not been associated with dyspnea, fever, headache, runny nose, sore throat or wheezing. the color of the sputum is greenish and yellowish. Note for Cough : hoarse no sanches- no sore throat- worse with actiivty- no cough while laying down- she will have spells of cough 10 min- she uses mucinexEncounter Diagnosis: Acute bronchitis (466.0) , Cough [facility] Office Visit On: 10-Jul-2014 9:26 Encounter Diagnosis: Gerd (530.81), Hypertension,benign(401.1), Fibromyalgia (729.1), WWV-benechos, Other lymphedema (457.1), Chest pain (786.50), Eosinophilic esophagitis, Neck pain End: 10-Jul-2014 10:24 [facility] Office Visit On: 14-Jun-2014 9:02 Encounter Diagnosis: Need for prophylactic vaccination and inoculation against influenza (V04.81) End: 14-Jun-2014 16:28 [facility] Annotation/Addendum On: 12-Jun-2014 10:53 Encounter Diagnosis: Hypertension,benign(401.1) End: 12-Jun-2014 10:56 [facility] Office Visit On: 12-May-2013 8:35 Encounter Reason: Follow up hospital - Reason for ER visit: note: (chest pain/reflux ). The patient feels well with minor complaints and has good energy level. Patient has been compliant with instructions. Current medica End: 12-May-2013 8:56 tion use: compliant with dosing regimen. Patient sleeps 8 hours per night. Impact of disease: emotional impact-mild. Nutrition: balanced diet and supplemental vitamins. Hospital procedures performed were other (nuclear stress test ). Encounter Diagnosis: Gerd (530.81), Hypertension,benign(401.1), Chest pain (786.50) [facility] Office Visit On: 07-Nov-2012 14:00 Encounter Reason: rectal painEncounter Diagnosis: Rash/skin eruption (782.1), Anal burning (569.42), Skin tag (701.9) End: 07-Nov-2012 14:41 [facility] Office Visit On: 21-Jun-2012 11:35 Encounter Reason: Follow up for chronic medical issues - The patient feels well with no complaints ,has good energy level and is sleeping well. Patient has been compliant with instructions. Current medication use: no alvin End: 21-Jun-2012 11:52 e effects ,compliant with dosing regimen and considered effective by patient. Patient sleeps 7 hours per night. Impact of disease: emotional impact-mild. Nutrition: balanced diet and supplemental vitami ns. The medical issues the patient is following up for include cardiac issues ,high blood pressure and high cholesterol. Encounter Diagnosis: Need for prophylactic vaccination and inoculation against influenza (V04.81), Poison vikas (692.6), Other lymphedema (457.1), WWV-benechos, HX, PERSONAL, MALIGNANCY, SKIN MELANOMA (V10.82), Gerd (530.81), Hypertension,benign(401.1), MALIGNANT MELANOMA, NOS, Fibromyalgia (729.1), Hemorrhoids (455.8), Acute bronchitis (466.0), Chest pain (786.59), Headache (784.0), SYMPTOM, SYNCOPE AND COLLAPSE (780.2), Backache, unspecified (724.5), Allergic Rhinitis(477.9) [facility] Office Visit On: 16-Jun-2011 8:26 Encounter Reason: Follow up, Laboratory Test Results - Date: (06.04.11). Current symptoms/reason for visit include/s Follow up visit with no current symptoms., End: 16-Jun-2011 8:58 [ADDITIONAL REASON] Follow up for chronic medical issues - The patient feels well with no complaints ,has good energy level and is sleeping well. Patient has been compliant with instructions. Current m edication use: no side effects ,compliant with dosing regimen and considered effective by patient. Patient sleeps 7 hours per night. Impact of disease: emotional impact-mild. Nutrition: balanced diet an d supplemental vitamins. The medical issues the patient is following up for include cardiac issues ,high blood pressure and high cholesterol. Encounter Diagnosis: Need for prophylactic vaccination and inoculation against influenza (V04.81), Hypertension,benign(401.1), Fibromyalgia (729.1), Gerd (530.81), HX, PERSONAL, MALIGNANCY, SKIN MELANOMA (V10.82), WWV V73.21 [facility] Phone Encounter On: 08-May-2011 7:48 Encounter Diagnosis: Hypertension,benign(401.1) End: 08-May-2011 7:48 [facility] Phone Encounter On: 05-Feb-2011 11:56 Encounter Diagnosis: Hypertension,benign(401.1) End: 05-Feb-2011 11:57 [facility] Office Visit On: 20-Jun-2010 9:11 Encounter Reason: Follow up, Diagnostic Procedure Results - Diagnostic tests include other (holter ). Date: (05-26-10).Encounter Diagnosis: SYMPTOM, SYNCOPE AND COLLAPSE (780.2), Vertigo (780.4) End: 20-Jun-2010 9:45 [facility] Office Visit On: 02-May-2010 14:09 Encounter Diagnosis: SYMPTOM, SYNCOPE AND COLLAPSE (780.2) End: 02-May-2010 14:47 [facility] Office Visit On: 27-Jan-2010 8:15 Encounter Reason: Rash - The onset of the rash has been acute and has been occurring in a persistent pattern for 4 days. The course has been increasing. The rash is characterized as red and raised above the skin. The nicole End: 27-Jan-2010 8:58 h was first seen on the upper extremity. There has been no progression. There has been associated itching. Encounter Diagnosis: Poison vikas (692.6) [facility] Office Visit On: 20-Sep-2009 11:28 Encounter Reason: Follow up for chronic medical issues - The patient feels well with no complaints ,has good energy level and is sleeping well. Patient has been compliant with instructions. Current medication use: no alvin End: 23-Sep-2009 16:01 e effects ,compliant with dosing regimen and considered effective by patient. Patient sleeps 7 hours per night. Impact of disease: emotional impact-mild. Nutrition: balanced diet and supplemental vitami ns. The medical issues the patient is following up for include cardiac issues ,high blood pressure and high cholesterol. Encounter Diagnosis: Hypertension,benign(401.1), Gerd (530.81), MALIGNANT MELANOMA, NOS, Other lymphedema (457.1), [facility] Office Visit On: 19-Jul-2008 12:36 Encounter Reason: Follow up for chronic medical issues - The patient feels well with minor complaints ,has good energy level and is sleeping well. Patient has been compliant with instructions. Current medication use: no End: 19-Jul-2008 13:08 side effects ,compliant with dosing regimen and considered effective by patient. Patient sleeps 7 hours per night. Impact of disease: no overall impact. Nutrition: balanced diet and supplemental vitamin s. The medical issues the patient is following up for include gastric reflux ,high blood pressure and other (hx. malignant melanoma left axillary, allergic rhinitis ). Encounter Diagnosis: Backache, unspecified (724.5), Hypertension,benign(401.1), Need for prophylactic vaccination and inoculation against influenza (V04.81), Gerd (530.81), MALIGNANT MELANOMA, NOS, Other lymphedema (457.1), Acute bronchitis (466.0), Hair, Hemorrhoids (455.8), Allergic Rhinitis(477.9) [facility] Office Visit On: 04-Jul-2007 11:12 Encounter Reason: Follow up, Laboratory Test Results - Date: (06-13-07 ). Current symptoms/reason for visit include/s Follow up visit with no current symptoms. Past medical history includes gastroesophageal reflux disease and hypertension. End: 04-Jul-2007 11:49 Encounter Diagnosis: Hypertension,benign(401.1), Need for prophylactic vaccination and inoculation against influenza (V04.81), Gerd (530.81), MALIGNANT MELANOMA, NOS, Backache, unspecified (724.5), Allergic Rhinitis(477.9), Headache (784.0), Hemorrhoids (455.8), Other lymphedema (457.1), [facility] Refill Request On: 09-Feb-2007 14:46 [facility] End: 09-Feb-2007 14:47 Office Visit On: 31-Dec-2006 9:17 Encounter Reason: new patient female physical - General health: feels well with minor complaints (fibromylagia). The patient's appetite is normal. Nutrition: appropriate balanced diet. Exercises 3 days per week. Sleeps o End: 31-Dec-2006 9:56 n average 7 hours per night. Normal bowel and bladder habits. Safety measures include appropriate use of safety belts and home smoke detectors. There are no current emotional problems. Note for new pat ient female physical: massotherapy fibromaylgia, controlled, sleep good, dx by whit, had sleep trouble--use sleep aidEncounter Diagnosis: Backache, unspecified (724.5), Acute bronchitis (466.0), MALIGNANT MELANOMA, NOS, Allergic Rhinitis(477.9), Headache (784.0), Hemorrhoids (455.8), Hypertension,benign(401.1), Chest pain (786.59), Other lymphedema (457.1), Gerd (530.81), [facility] Historical Summary On: 31-Dec-2006 9:10 [facility] End: 31-Dec-2006 9:16 Payers MedicareAnthem/Jasmeet cummins guarantor
--- OUTSIDE RECORDS SUMMARY | 2018-11-24 17:16 | XMS RPT_ITS | Continuity of Care Document ---
:1950 Author Organization [facility] Address [facility] [address] Phone Care Team Providers Name Role Phone Nikky Tabor DO Unavailable Yoanna NEELY, Onofre Unavailable Nadja NEELY, Madi Zaragoza Unavailable RAFAT Rivera Unavailable Unavailable Cece Santillan Unavailable Unavailable Kathya Deras Unavailable Unavailable Unavailable Unavailable [...] aches, ear aches, rash, asthma/COPD. Status: Active Ceruminosis, right (H61.21, 380.4) Status: Active Cough (R05, 786.2) Status: Active [...] cut back alot of flour and sug[facility] later if still up next fu Status: Active Hypertension, benign (I10, 401.1) Comments: does not check BP at home Status: Active Lymphedema, limb (I89.0, 457.1) Comments: stable on left arm Status: Active Nausea (R11.0, 787.02) Status: Active Need for prophylactic vaccination and inoculation against influenza (Z23, V04.81) Status: Active Need for prophylactic vaccination and inoculation against influenza (Renamed from Need for immunization against influenza) (Z23, V04.81) Status: Active Need for prophylactic vaccination with Streptococcus pneumoniae (Pneumococcus) and Influenza vaccines (Z23, V06.6) Status: Active Nonsmoker (Z78.9, V49.89) Status: Active Otalgia, right (H92.01, 388.70) Status: Active Post-menopausal (Z78.0, V49.81) Status: Active Pregnancies () Comments: 2 Status: Active Subclinical hypothyroidism (E03.9, 244.8) Status: Active Unspecified Diagnosis Status: Active Unspecified Diagnosis Status: Active Vaginal discharge (N89.8, 623.5) Status: Active Vertigo (R42, 780.4) Comments: side effect from procedure -- sat up- did kinza and cold compresses on face -- resolved and feeling better and asx when left Status: Active Vitamin D deficiency (E55.9, 268.9) [...] Felisha Solorzano MD Start : 12-May-2013 Active Ibuprofen 800 MG Oral Tablet 1 Tablet tid/ prn with food for 90 days Quantity: 180 {Tablet} Refills: 3 Ordered:16-Nov-2017 Conrad Tabor DO, DO, Kathleen Start : 16-Nov-2017 Active Loratadine 10 MG Oral Tablet 1 (one) Tablet Tablet qd prn for allergies for 0 days Quantity: 30 {Tablet} Refills: 3 Ordered:19-May-2016 Onofre Lenz MD Start : 19-May-2016 Active Omeprazole 40 MG Oral Capsule Delayed Release [address] QD for 90 days Quantity: 90 {Capsule} Refills: 3 Ordered:19-May-2018 Kathy Rivera LPN Start : 19-May-2018 Active SUPER B COMPLEX/VITAMIN C (Oral Tablet) [...] Start : 31-Mar-2016 End : 05-Apr-2016 Inactive Cheratussin AC 100-10 MG/5ML Oral Syrup 4 Milliliter q 6 hr prn for 0 days Quantity: 120 {Milliliter} Refills: 0 Ordered:04-Jul-2018 Kathy Rivera LPN Start : 14-Jun-2018 End : 04-Jul-2018 Inactive Comments:ninety ml Desloratadine 5 MG Oral Tablet 1 (one) [...] days Quantity: 20 {Tablet} Refills: 0 Ordered:09-Dec-2015 Asuncion PATRICIASamantha Start : 09-Dec-2015 End : 19-Dec-2015 Inactive Dulera 100-5 MCG/ACT Inhalation Aerosol 1 (one) Aerosol Aerosol bid for 0 days Quantity: 1 {Each} Refills: 0 Ordered:19-May-2018 Kathy Rivera LPN Start : 07-May-2016 End : 19-May-2018 Inactive Levaquin 500 MG Oral Tablet 1 Tablet QD for 7 days Quantity: 7 {Tablet} Refills: 0 Ordered:14-Jun-2018 Asuncion PATRICIA Samantha Carbajal Start : 14-Jun-2018 End : 21-Jun-2018 Inactive melatonin Inactive Multivitamin Oral Liquid 1 QD for 0 days Refills: 0 Ordered:08-Apr-2016 June Robertson LPN End : 08-Apr-2016 Inactive NYSTATIN, 136538AHXJ/GM (External Cream) 1 Cream bid for 0 days Quantity: 1 {Cream} Refills: 0 Ordered:12-May-2013 ZEINAB Camacho Start : 07-Nov-2012 End : 12-May-2013 Inactive PredniSONE 10 MG Oral Tablet 1 Tablet uad for 10 days Quantity: 32 {Tablet} Refills: 0 Ordered:14-Jun-2018 Osoriozohra PATRICIASamantha Start : 14-Jun-2018 End : 24-Jun-2018 Inactive Comments:3 tablets BID 2 days2 tablet BID x 4 days1 tablet qd x 4 daysthen stop.10 days32 tablets PredniSONE 20 MG Oral Tablet 1 (one) [...] Start : 24-Oct-2013 End : 10-Jul-2014 Inactive ProAir HFA 108 (90 Base) MCG/ACT Inhalation Aerosol Solution 2 (two) Puff TID for 7 days Quantity: 1 {Inhaler} Refills: 0 Ordered:14-Jun-2018 Samantha Roland CNP Start : 14-Jun-2018 End : 21-Jun-2018 Inactive Promethazine HCl 25 MG Rectal Suppository [...] 30 {Capsule} Refills: 0 Ordered:19-May-2018 Kathy Rivera RAFAT Start : 07-Feb-2015 End : 19-May-2018 Inactive BENZONATATE, 100MG (Oral Capsule) 1 (one) Capsule tid prn for 0 days Quantity: 30 {Capsule} Refills: 0 Ordered:01-Feb-2015 Slanishi PHOTOVOLTAIC SOLAR CELL DESIGNER, Ashley Start : 29-Oct-2014 End : 01-Feb-2015 Discontinued [...] area has apt with Dr. Camarillo at [facility] in December Status: Inactive as of 12-May-2013 [...] V73.21 benekos Status: Inactive as of 12-May-2013 WWV-sasha Comments: colonscopy [facility] 2011 Status: Inactive as of 16-Nov-2017 Procedures Procedure Dates Details axillary node dissection Completed Section Completed Comments: X 2 Colonoscopy Completed Comments: 08-14-14 Date Value Details 10-Dec-2017 Operative Report Result: Comments: See Note; NOTES: [facility] Medical Records Department [address] [place] [address] Operative Report 11/29/17 0905 MR#: [id number] Acct: [id number] Name: JAKY BRUSH Valentin Rep #: [id number] : 1950 66 From: Madi Morrell MD PCP: Nikky Tabor DO Status: DEP [facility] Location: EN Problem List (1) Eosinophilic esophagitis Status: Acute (2) Colon cancer screenin g Status: Acute Report of Operation Date of Procedure: 11/29/17 Pre-Operative Diagnosis: k20.0 eosinophilic esophagitis. z12.11 encounter for screening colonoscopy Post-Operative Diagnosis: 4323 e sophagogastroduodenoscopy with biopsy. 17908 colonoscopy Type of Anesthesia:: MAC Description of [...] Madi Morrell MD CC: Madi Morrell MD; Nikkychito Tabor Signed 06-Dec-2017 Surgery Visit Report Result: Comments: See Note; NOTES: [facility] [place] [address] OFFICE VISIT Date of Service: 12/06/17 MR#: [id number] Acct: [id number] Name: JAKY RAM Rep #: [id number] : 1950 Provider: Madi Morrell MD Age/Sex: 66/F Location: [facility] Status: Signed Intake Intake Visit Reasons: F/U EGD AND C-SCOPE 11/29 2017 Chief Complaint: eosi nophilic esophagitis--past due for EGD Port Crane Operator Required: No Is patient in pain?: No [...] Madi Morrell MD> Date Madi Morrell MD [facility] Signature: Date (if applicable) CC: Nikky Tabor DO 16-Nov-2017 Surgery Visit Report Result: Comments: See Note; NOTES: [facility] [address] [place] [address] OFFICE VISIT Date of Service: 11/16/17 MR#: [id number] Acct: [id number] Name: JAKY RAM Rep #: [id number] : 1950 Provider: Madi Morrell MD Age/Sex: 66/F Location: [facility] Status: Signed Intake Vital Signs11/16/17 Height 5 ft 2.3 in 11/16/17 Weight: 150 lb 9 oz Body Mass Index (BMI) 27.2 11/16/17 Blood Pressure 149/92 Intake Visit Reasons: Eosinophilic esophagitis and possible cscope Chief Complaint: eosinophilic esophagitis--past due for EGD Port Crane Operator Required: No Is patient in pain?: No [...] Patient : No PFSH Medical History (Revie wed11/16/17 @ 09:59 by Madi Morrell MD) GERD [...] person, oriented to place, oriented to time [facility] Head: normocephalic, atraumatic Ears: external ears normal [...] esophagitis K20.0 2. Encounter for screening colonoscopy Z12. Plan I have discussed the above with [...] Eosinophilic esophagitis K20.0 Encounter for screening colonoscopy Z12.11/16/17 1001 <Electronically signed by Madi Morrell MD> Date Madi Morrell MD Cosigner Signat ure: Date (if applicable) CC: Nikky Sharona CARRASQUILLO 12-Nov-2017 SCREENING MAMM (CAD), BILAT Result: Comments: See Note; NOTES: [facility] Imaging Services [address] [place] [address] SCREENING MAMM (CAD), BILAT MR#: [id number] Acct: [id number] Name: JAKY BRUSH Rep #: : 1950 F 66 From: Sergio Yang MD PCP: Nikky Tabor DO Status: REG CLI Study: SCREENING MAMM (CAD), BILAT Date of Exam: 11/12/17 Exam# [id number] Ordering Dr: Nikky Tabor DO MAMMOGRAPHY - [...] delay biopsy of a clinically suspicious abnormality. [id number] Electronically Signed: Sergio Yang MD at 8:12 EDT Tel [phone], Service support , CC: Nkiky Tabor DO Childcare Aide: Signed 20-Aug-2016 Bilat Scrn Digital AND CAD Result: Comments: See Note; NOTES: [facility] Imaging Services [address] [place] [address] Verdana 4d Bilat Scrn Digital AND CAD MR#: [id number] Acct: [id number] Name: JAKY BRUSH Rep #: [id number] : 1950 F 65 From: Sergio Yang MD PCP: Onofre Lenz Status: REG CLI Study: Bilat Scrn Digital AND CAD Date of Exam: 08/20/16 Exam# [id number] Ordering Dr: Onofre Lenz MAMMOGRAPHY - BILATERAL [...] delay biopsy of a clinically suspicious abnormality. [id number] Electronically Signed: Sergio Yang MD zohra t 11:03 EST Tel [phone], Service support [phone], CC: Onofre Lenz Childcare Aide: Signed 20-Aug-2016 Dexa Bone Density Study (HP) Result: Comments: See Note; NOTES: [facility] Imaging Services [address] [place] [address] Verdana 4d Dexa Bone Density Study () MR#: [id number] Acct: [id number] Name: JAKY BRUSH Rep #: [id number] : 1950 F 65 From: Sergio Yang MD PCP: Onofre Lenz Status: [facility] Study: Dexa Bone Density Study (HP) Date of Exam: 08/20/16 Exam# [id number] Ordering Dr: Bear Lenz STUDY: DUAL ENERGY [...] Sergio Yang MD at 12:46 EST Tel [phone], Service support [phone], CC: Onofre Lenz Childcare Aide: Signed 08-Apr-2016 Spirometry (43927) Result: 31-Mar-2016 Spirometry (26433) Result: 08-Nov-2015 Gallbladder Result: Comments: See Note; NOTES: [facility] Imaging Services [address] [place] [address] Verdana 4d Gallbladder MR#: [id number] Acct: [id number] Name: JAKY BRUSH ep #: [id number] : 1950 F 64 From: Sergio Yang MD PCP: Felisha Solorzano MD Status: REG CLI Study: Gallbladder Date of Exam: 11/08/15 Exam# [id number] Ordering Dr: Felisha Solorzano MD ESA DY: [...] Sergio Yang MD at 9:51 EST Tel [phone], Service support [phone], CC: Felsiha Solorzano MD Childcare Aide: Signed 19-Aug-2015 Bilat Scrn Digital AND CAD Result: Comments: See Note; NOTES: [facility] Imaging Services [address] [place] [address] Verdana 4d Bilat Scrn Digital AND CAD MR#: [id number] Acct: [id number] Name: JAKY BRUSH Rep #: [id number] : 1950 F 64 From: Sergio Yang MD PCP: Felisha Solorzano MD Status: REG CLI Study: Bilat Scrn Digital AND CAD Date of Exam: 08/19/15 Exam# [id number] Samra daniels Dr: Melvi Lovett MD MAMMOGRAPHY [...] biopsy of a clinically suspicious abnor mality. [id number] Electronically Signed: Sergio Yang MD at 11:23 EST Tel [phone], Service support [phone], CC: Felisha Solorzano MD; Melvi Lovett MD Childcare Aide: Signed 29-Oct-2014 Spirometry (97475) Comments: good effort and curve normal Result: 16-Aug-2014 Bilat Scrn Digital AND CAD Result: Comments: See Note; NOTES: [facility] Imaging Services [address] [place] [address] Breast Imaging Report MR#: [id number] Acct: [id number] Name: JAKY BRUSH Rep #: [id number] : 1950 F 63 From: Sergio Yang MD PCP: Felisha Solorzano MD Status: REG CLI Study: Bilat Scrn Digital AND CAD Date of Exam: 08/16/14 Exam# [id number] Ordering Dr: Melvi Lovett MD MAMMOGRAPHY - [...] Sergio Yang MD at 8:57 EST Tel [phone], Service support [phone], CC: Felisha Solorzano MD; Melvi Lovett MD Childcare Aide: Signed Immunization Name Dates Details Influenza (3 [...] smoker Vital Signs Date Test Result Details 43-Eju-462582:10 Pulse 74 /min Comments: Pattern: Regular Respiration Rate 18 /min Comments: Pattern: Unlabored O2 SAT 98 % Comments: Room air BP Systolic 142 mm[Hg] Comments: Patient Position: Sitting; Cuff Location: Left Arm; Cuff Size: Large BP Diastolic 82 mm[Hg] Comments: Patient Position: Sitting; Cuff Location: Left Arm; Cuff Size: Large Weight 157 lb Height 63 in Body Mass Index Calculated 27.81 kg/m2 Body Surface Area Calculated 1.74 m2 :53 Temperature 97.9 f Comments: Method: Temporal [...] kg/m2 Body Surface Area Calculated 1.73 m2 :24 Pulse 70 /min Comments: Pattern: Regular Respiration [...] Area Calculated 1.72 m2 :31 Comments: hearing wnlDrMarilia and had a glaucoma test xdlo996/90 Pulse 98 /min Comments: Pattern: Regular Respiration [...] Area Calculated 1.73 m2 :07 Comments: hearing wnlDrRenee Gibbs and had a glaucoma test done [...] Height 0 in Head Circumference 0.00 cm 02-Pvm-018910:12 Temperature 98.7 f Comments: Method: Oral Pulse [...] 0.00 cm Results Date Description Value Details 7-Qzo-626399:34 Sputum Culture Comments: PATIENT NOT FASTINGPERFORMED BY: [facility]Nov[facility] [id number] Result 1 RRF (Normal) Comments: Routine respiratory tomas Lower Respiratory Culture Final report (Normal) 1-Kht-513235:34 Sputum Culture (87201) Comments: PATIENT NOT FASTINGPERFORMED BY: Prixelrp Share0[facility] [id number] Information: SRC:SP Gram Stain Evaluation GSACC (Normal) Comments: This specimen is of good quality and is acceptable for routinebacterial culture. Result 1 PCF (Normal) Comments: Few gram positive cocciFew gram variable coccobacilli Epithelial Cells Few (Normal) White Blood Cells None seen (Normal) 59-Qlp-621380:51 Microscopic Examination Comments: PATIENT NOT FASTINGPERFORMED BY: [employer] Messaging70 [facility] [id number] Bacteria None seen (Normal) Mucus Threads Present (Normal) Epithelial Cells (non renal) None seen {/hpf} (Normal) Range: 0 - 10 RBC None seen {/hpf} (Normal) Range: 0 - 2 WBC 0-5 {/hpf} (Normal) Range: 0 - 5 64-Ehn-161686:51 CALCIFIDIOL (07975) VIT D 25 Comments: PATIENT NOT FASTINGPERFORMED BY: [facility] Ifpqac9982 [facility] [place] [id number] Vitamin D, 25-Hydroxy 68.5 ng/mL (Normal) Range: 30.0-100.0 Comments: Vitamin D deficiency has been defined by the [place] of[place]icine and an Endocrine Society practice guideline as alevel of serum 25-OH vitamin D less than 20 ng/mL (1,2).The Endocrine Society went on to further define vitamin Dinsufficiency as a level between 21 and 29 ng/mL (2).1. IOM ([place] of Medicine). 2010. Dietary reference intakes for calcium and D. [place]: The National Academies Press.2. Jadon MF, Abimael CHAWLA, Susan SANCHES, et al. Evaluation, treatment, and prevention of vitamin D deficiency: an Endocrine Society clinical practice guideline. JCEM. 2010; 96(7):1911-30. 48-Cox-720904:51 TSH (03135) Comments: PATIENT NOT FASTINGPERFORMED BY: [facility] Ohownv1660 [facility] [id number] TSH 3.620 {uIU/mL} (Normal) Range: 0.450-4.500 86-Qrk-703820:51 URINALYSIS, W/ MICRO (40427) Comments: PATIENT NOT FASTINGPERFORMED BY: [facility] Oujmuo8695 [facility] [id number] Microscopic Examination See below: (Normal) Comments: Microscopic was indicated and was performed. Microscopic Examination MICRON (Normal) Comments: Microscopic follows if indicated. Nitrite, Urine Negative (Normal) Urobilinogen,Semi-Qn 0.2 mg/dL (Normal) Range: 0.2-1.0 Bilirubin Negative (Normal) Occult Blood Negative (Normal) Ketones Negative (Normal) Glucose Negative (Normal) Protein Negative (Normal) WBC Esterase Negative (Normal) Appearance Clear (Normal) Urine-Color Yellow (Normal) pH 6.0 (Normal) Range: 5.0-7.5 Specific [place] 1.019 (Normal) Range: 1.005-1.030 44-Bid-699162:51 METABOLIC PANEL, COMPREHENSIVE Comments: PATIENT NOT FASTINGPERFORMED BY: LabCoRehabilitation Hospital of South JerseyYrqbaq8722 [facility] [id number] (89710) ALT (SGPT) 21 [iU]/L (Normal) Range: 0-32 [...] 65-99 Gastric Biopsy See Note (Normal) Comments: [facility] [address] [place], [address] :00 Comments: Patient: JAKY BRUSH : 1950 (66/F) Acct Num: [id number] Phys: Petros NEELY,aMdi Unit Num: [id number] Loc: EN Specimen: [id number] Received: 11/29/17 1143 Spec Type: Mikey nikia Bx TISSUES [...] one cassette. / RIGOBERTO:beba 11/29/17 TC:5 CPT: 23237 HEADER OPERATION: EGD with biopsy PRE-OP DIAG NOSIS: Eosinophilic esophagitis TISSUE SUBMITTED: Gastric polyp biopsy MICROSCOPIC DESCRIPTION Slides are reviewed. MICROSCOPIC DIAGNOSIS Gastric polyp, biopsy: Fundic gland polyp . See comment. SJ:rg [id number] Signed Shabbir Molinain 11/30/17 <signature on file> 9-Uuu-406282:36 Microscopic Examination Comments: PATIENT WAS FASTINGPERFORMED BY: [employer] Ucjajz4509 [facility] [id number] Bacteria None seen (Normal) Mucus Threads Present (Normal) Crystal Type Calcium Oxalate (Normal) Crystals Present (Abnormal) Epithelial Cells (non renal) 0-10 {/hpf} (Normal) Range: 0 - 10 RBC 0-2 {/hpf} (Normal) Range: 0 - 2 WBC 0-5 {/hpf} (Normal) Range: 0 - 5 3-Bih-924839:36 CALCIFEDIOL (35728) Comments: PATIENT WAS FASTINGPERFORMED BY: [facility] Kcakne7857 [facility] [id number] Vitamin D, 25-Hydroxy 171.2 ng/mL (Abnormal) Range: 30.0-100.0 Comments: Results confirmed ondilution.Vitamin D deficiency has been defined by the [place] of[place]icine and an Endocrine Society practice guideline as alevel of serum 25-OH vitamin D less than 20 ng/mL (1,2).The Endocrine Society went on to further define vitamin Dinsufficiency as a level between 21 and 29 ng/mL (2).1. IOM ([place] of Medicine). 2010. Dietary reference intakes for calcium and D. [place]: The National Academies Press.2. Jadon MF, Abimael CHAWLA, Susan SANCHES, et al. Evaluation, treatment, and prevention of vitamin D deficiency: an Endocrine Society clinical practice guideline. JCEM. 2010; 96(7):1911-30. 1-Umh-743696:36 URINALYSIS, W/ MICRO (60190) Comments: PATIENT WAS FASTINGPERFORMED BY: [employer] Lpomlf3495 [facility] [id number] Microscopic Examination See below: (Normal) Comments: Microscopic was indicated and was performed. Microscopic Examination MICRON (Normal) Comments: Microscopic follows if indicated. Nitrite, Urine Negative (Normal) Urobilinogen,Semi-Qn 0.2 mg/dL (Normal) Range: 0.2-1.0 Bilirubin Negative (Normal) Occult Blood Negative (Normal) Ketones Trace (Abnormal) Glucose Negative (Normal) Protein Negative (Normal) WBC Esterase Negative (Normal) Appearance Clear (Normal) Urine-Color Yellow (Normal) pH 6.0 (Normal) Range: 5.0-7.5 Specific [place] >=1.030 (Abnormal) Range: 1.005-1.030 9-Ntf-743023:36 MICROALBUMIN: CREATININE RATIO Comments: PATIENT WAS FASTINGPERFORMED BY: [facility] SolutionsRehabilitation Hospital of South JerseyXxjcmr1830 [facility] [id number] (17191) AND (62708) Alb/Creat Ratio 5.9 {mg/g_creat} (Normal) Range: 0.0-30.0 Albumin, Urine 9.0 ug/mL (Normal) Creatinine, Urine 152.4 mg/dL (Normal) 9-Vgg-499189:36 METABOLIC PANEL, COMPREHENSIVE Comments: PATIENT WAS FASTINGPERFORMED BY: Kire[facility] SolutionsRehabilitation Hospital of South JerseyWliacw1902 [facility] [id number] (51864) ALT (SGPT) 20 [iU]/L (Normal) Range: 0-32 [...] Glucose, Serum 93 mg/dL (Normal) Range: 65-99 2-Xjv-299061:36 LIPID PANEL (69942) Comments: PATIENT WAS FASTINGPERFORMED BY: [employer] [facility] Rccoie4158 [facility] PartyNov[facility] [id number] LDL/HDL Ratio 1.8 {ratio_units} (Normal) Range: 0.0-3.2 Comments: LDL/HDL Ratio Men Women 1/2 Avg.Risk 1.0 1.5 Av g.Risk 3.6 3.2 2X Avg.Risk 6.2 5.0 3X Avg.Risk 8.0 6.1 LDL Cholesterol Calc 110 mg/dL (Abnormal) Range: 0-99 VLDL Cholesterol Medardo 10 mg/dL (Normal) Range: 5-40 HDL Cholesterol 61 mg/dL (Normal) Triglycerides 48 mg/dL (Normal) Range: 0-149 Cholesterol, Total 181 mg/dL (Normal) Range: 100-199 3-Jvo-229473:36 CBC W/AUTO DIFF WBC (71247) Comments: PATIENT WAS FASTINGPERFORMED BY: [employer] [facility] Xkgiie8694 G[facility] PartyNov[facility] [id number] Immature Grans (Abs) 0.0 {x10E3/uL} (Normal) Range: [...] 3.77-5.28 WBC 6.7 {x10E3/uL} (Normal) Range: 3.4-10.8 6-Xdd-621087:36 TSH (63743) Comments: PATIENT WAS FASTINGPERFORMED BY: LabCoKatherine Ville 2764470 [facility] [id number] TSH 1.970 {uIU/mL} (Normal) Range: 0.450-4.500 8-Nfx-588748:36 T4, FREE (THYROXINE) (15684) Comments: PATIENT WAS FASTINGPERFORMED BY: [facility] [place] [address] [id number] T4,Free(Direct) 1.29 ng/dL (Normal) Range: 0.82-1.77 0-Fxp-131641:36 T3, FREE (TRIDOTHYRONINE) (64655) Comments: PATIENT WAS FASTINGPERFORMED BY: LabCoRehabilitation Hospital of South JerseyKmpzbo4266 [facility] [id number] Triiodothyronine,Free,Serum 3.1 pg/mL (Normal) Range: 2.0-4.4 20-Pln-703416:37 NuSwab Vaginitis Plus Comments: PATIENT NOT FASTINGPERFORMED BY: Lab[address] [id number] Information: SRC:VA (trich/BV/GC/lillie W/O Herpes) (54726) Neisseria gonorrhoeae, Negative (Normal) STEPHANIE Chlamydia trachomatis, Negative (Normal) STEPHANIE Trich vag by STEPHANIE Negative (Normal) Felicitas glabrata, STEPHANIE Negative (Normal) Comments: This test was developed and its performance characteristics determinedby [employer]. It has not been cleared or approved [...] was developed and its performance characteristicsdetermined by [employer]. It has not been cleared or approvedby the Food and Drug Administration. The FDA has determinedthat such clearance or approval is not necessary. BVAB 2 Low - 0 {Score} (Normal) Atopobium vaginae Low - 0 {Score} (Normal) 23-Oxz-508381:26 CALCIFIDIOL (09148) VIT D 25 Comments: PATIENT NOT FASTINGPERFORMED BY: LabCoRehabilitation Hospital of South JerseyFcetck4561 [facility] [id number] Vitamin D, 25-Hydroxy 69.9 ng/mL (Normal) Range: 30.0-100.0 Comments: Vitamin D deficiency has been defined by the [place] of[place]icine and an Endocrine Society practice guideline as alevel of serum 25-OH vitamin D less than 20 ng/mL (1,2).The Endocrine Society went on to further define vitamin Dinsufficiency as a level between 21 and 29 ng/mL (2).1. IOM ([place] of [place]). 2010. Dietary reference intakes for calcium and D. [place]: The National Academies Press.2. Jadon MF, Abimael CHAWLA, Susan SANCHES, et al. Evaluation, treatment, and prevention of vitamin D deficiency: an Endocrine Society clinical practice guideline. JCEM. 2010; 96(7):1911-30. :38 Thin prep Pap Comments: Source.............Cervix;EndocervixNo. of containers..01 CYTYC Thin Prep VialPATIENT NOT FASTINGPERFORMED BY: =G [facility] Yuhrahynyd771 [place] PlazaLiveQoSrleston [place] [id number] BY: rag & bone (41111) (no STD rp Qblrvtafxn297 [place] PlazaPam Health [facility] Hospital [facility] Stoughtonrlesbaysh[facility] [place] [id number] Information: [id number] testing) Age Gdln ACOG Testing AGE6 (Normal) Comments: <21 or >65 or no age provided :38 Pap IG (Image Comments: Source.............Cervix;EndocervixNo. of containers..01 CYTYC Thin Prep VialPATIENT NOT FASTINGPERFORMED BY: =G [facility] Icdxcvlmkr912 [place] PlazaLiveQoSrleston [place] [id number] BY: WB [facility] Guided) Ccwkguhnew160 [place] PlazaYulisarlesbayshore community hospital [place] [id number] Note: PAPSMR (Normal) Comments: The Pap smear [...] guished in c ases of atrophy.Z00.01Ashley Delgado, Supervisor Pig Machine (ASCP) :37 CBC W/Diff, Automated Comments: [facility] [address]joqdfzpc[address] [place], [place], [id number] Absolute Lymph 1.88 {X10_3/ul} (Normal) Range: 0.83-4.51 [...] Patient Taking Vitamins or Folic Acid Supplements? [facility] [address]jxxifzja[address] [place], [address] GAP 11 (Normal) Range: 5-15 CO2 24.0 [...] Patient Taking Vitamins or Folic Acid Supplements? [facility] Mpxixwbyxa8166 [place], [id number] FOLATES 19.70 ng/mL (Abnormal) Range: 3.1-17.5 :37 Free T3 Comments: Is Patient Taking Vitamins or Folic Acid Supplements? [facility] Uqifslperp1004 [place], [id number] FREE T3 3.8 pg/mL (Normal) Range: 2.18-3.98 :37 Lipid Profile Comments: Is Patient Taking Vitamins or Folic Acid Supplements? [facility] Tphxalffba4052 Geoffrey [address]. [place], [id number] VLDL 11 mg/dL (Normal) Range: 5-40 LDL [...] High Risk :37 Microalb:Creat Ratio,Random UR Comments: [facility] [address] [place], [address] MALB:CREAT 5.3 {mg/g_CRE} (Normal) MICROALBUMIN,UR 6.6 mg/L (Normal) UR CREAT 124.00 mg/dL (Normal) :37 T4 Free Direct Comments: Is Patient Taking Vitamins or Folic Acid Supplements? [facility] Imdobfuhkh9135 [address]. [place], [id number] T4 FREE DIRECT 0.93 ng/dL (Normal) Range: 0.76-1.46 :37 Thyroid Stim Hormone (TSH) Comments: Is Patient Taking Vitamins or Folic Acid Supplements? [facility] Fpxzvwuszi1730 [place], [id number] TSH 5.81 {uIU/mL} (Abnormal) Range: 0.358-3.74 :37 Vitamin B12 720 pg/mL (Normal) Comments: [facility] [address] [place], [id number] Range: 211-911 :14 CBC W/Diff, Automated Comments: [facility] Fksowydsjv4890 [address]. [place], [id number] Absolute Lymph 3.44 {X10_3/ul} (Normal) Range: 0.83-4.51 [...] Patient Taking Vitamins or Folic Acid Supplements? [facility] Jusuucsupw6122 [address]umbo. [place], [id number] GAP 10 (Normal) Range: 5-15 CO2 25.0 [...] Patient Taking Vitamins or Folic Acid Supplements? [facility] Dcntktzsxz8743 [place], [address] FOLATES 43.60 ng/mL (Abnormal) Range: 3.1-17.5 :14 Free T3 Comments: PLEASE ADD FOLATES TO BLOOD FROM THIS MORNINGIs Patient Taking Vitamins or Folic Acid Supplements? [facility] Gdpqgcsbwv4786 [place], [address] FREE T3 2.8 pg/mL (Normal) Range: 2.18-3.98 :14 Hemoglobin A1c Comments: [facility] Oxzpctibwl[address], [id number] HGB A1C 5.6 % (Normal) Range: 4.2-6.3 :14 Lipid Profile Comments: PLEASE ADD FOLATES TO BLOOD FROM THIS MORNINGIs Patient Taking Vitamins or Folic Acid Supplements? [facility] Leoirbgeug5316 [place], [id number] VLDL 30 mg/dL (Normal) Range: 5-40 [...] High Risk :14 Microalb:Creat Ratio,Random UR Comments: [facility] Bfsiowawki4401 [place], [id number] MALB:CREAT 4.8 {mg/g_CRE} (Normal) MICROALBUMIN,UR 9.6 mg/L (Normal) UR CREAT 202.00 mg/dL (Normal) :14 T3 Total - Triiodothyronine Comments: [facility] Odqnhkbouq3128 [place], [id number] T3 Total 1.33 ng/mL (Normal) Range: 0.6-1.81 :14 T4 Free Direct Comments: PLEASE ADD FOLATES TO BLOOD FROM THIS MORNINGIs Patient Taking Vitamins or Folic Acid Supplements? [facility] Bextitymvv7162 [address]. [place], [id number] T4 FREE DIRECT 0.95 ng/dL (Normal) Range: 0.76-1.46 :14 T4 Total, Thyroxin Comments: PLEASE ADD FOLATES TO BLOOD FROM THIS MORNINGIs Patient Taking Vitamins or Folic Acid Supplements? [facility] Tnwpruuwky4450 [place], [id number] T4 THYROXIN 8.4 ug/dL (Normal) Range: 4.8-13.9 :14 Thyroid Peroxidase AB Comments: [facility] (refer to report for specific site)refer to report for address and phone number TPO AB 7293 13 {IU/mL} (Normal) Range: 0-34 Comments: Performed at: [address] [id number] Director: Tonio Bose PhD, Phone: [phone] Thyroid Stim Hormone (TSH) Comments: PLEASE ADD FOLATES TO BLOOD FROM THIS MORNINGIs Patient Taking Vitamins or Folic Acid Supplements? [facility] Vfywoycndy8787 [address]. [place], [id number] TSH 9.32 {uIU/mL} (Abnormal) Range: 0.358-3.74 :14 Vitamin B12 1240 pg/mL (Abnormal) Comments: [facility] Pnacnqwjtb3263 [facility] [place]. [place], [id number] Range: 211-911 :14 Vitamin D,25 Hydroxy Comments: [facility] Eeembhlmup9298 Geoffrey [address]. [place], [id number] Vitamin D 25-OH 33.8 ng/mL (Normal) Comments: Vitamin D 25(OH) Status Range Deficiency <20 ng/mL (50nmol/L) Insuffciency 20 - 30 ng/mL (50 - 75 nmol/L) Sufficiency 30 - 100 ng/mL (75 - 250 nmol/L) Toxicity >100 ng/mL (>250 nmol/L) :25 Sputum Culture ([id number]) Comments: PATIENT NOT FASTINGPERFORMED BY: [facility] Jwmtpv4761 [facility] [id number] Information: [id number] Result 1 RRF (Normal) Comments: Routine respiratory tomas Lower Respiratory Culture Final report (Normal) 0-Ywv-055979:37 CULTURE, SPUTUM (65259) Comments: PATIENT NOT FASTINGPERFORMED BY: [facility] Hkltmr7526 [facility] [id number] Information: SRC:[facility] [id number] Result 1 RRF (Normal) Comments: Routine respiratory tomas Lower Respiratory Culture Final report (Normal) :26 CBC W/Diff, Automated Comments: Test performed at:[facility] Azpxjjlxtf6723 [place] [address] Absolute Lymph 1.93 {X10_3/ul} (Normal) Range: 0.83-4.51 [...] 4.2-5.4 WBC 7.0 K/mm3 (Normal) Range: 4.4-11.0 :26 Comprehensive Metabolic Profil Comments: Test performed at:[facility] Snkejogoil7949 [address] [place], [place] [id number] GAP 10 (Normal) Range: 5-15 CO2 23.0 [...] 7-18 GLU 97 mg/dL (Normal) Range: 70-110 :26 Lipid Profile Comments: Test performed at:[facility] Wlxhofvhbw6954 [facility] [address]. [place], [place] [id number] VLDL 16 mg/dL (Normal) Range: 5-40 LDL [...] 200-240 mg/dL Borderline >240 mg/dL High Risk 40-Hme-53526:26 Urinalysis, Complete Comments: How was Urine Obtained? CLEAN CATCHTest performed at:[facility] Dwhxrpegqm0546 [place] [address] MUCUS, URINE 0 SEEN {/hpf} (Normal) BACTERIA [...] Cloudy (Normal) COLOR Yellow (Normal) 14-Jun-20149:08 URINALYSIS (24496) Comments: PATIENT WAS FASTINGPERFORMED BY: [facility]6370 [facility] [id number] Microscopic Examination MICNIP (Normal) Comments: Microscopic not indicated and not performed. Nitrite, Urine Negative (Normal) Urobilinogen,Semi-Qn 0.2 mg/dL (Normal) Range: 0.0-1.9 Bilirubin Negative (Normal) Occult Blood Negative (Normal) Ketones Negative (Normal) Glucose Negative (Normal) Protein Negative (Normal) WBC Esterase Negative (Normal) Appearance Clear (Normal) Urine-Color Yellow (Normal) pH 6.0 (Normal) Range: 5.0-7.5 Specific [place] 1.027 (Normal) Range: 1.005-1.030 :08 MICROALBUMIN: CREATININE RATIO Comments: PATIENT WAS FASTINGPERFORMED BY: [employer] Thaagp3789 [facility] [id number] ([id number]) AND (14870) Microalb/Creat Ratio 3.6 {mg/g_creat} (Normal) Range: 0.0-30.0 Microalbumin, Urine 6.0 ug/mL (Normal) Range: 0.0-17.0 Creatinine, Urine 168.1 mg/dL (Normal) Range: 15.0-278.0 :08 TSH (69992) Comments: PATIENT WAS FASTINGPERFORMED BY: [employer] Vpwgiv3289 [facility] [id number] TSH 4.310 {uIU/mL} (Normal) Range: 0.450-4.500 :08 CBC, Platelets & Auto Diff Comments: PATIENT WAS FASTINGPERFORMED BY: [facility] SolutionsRe[facility] JerseyScknrc7868 [facility] [id number] Information: [id number] (97583) Immature Grans (Abs) 0.0 {x10E3/uL} (Normal) Range: [...] Panel, Comprehensive Comments: PATIENT WAS FASTINGPERFORMED BY: [facility] Ynoszi3245 [facility] [id number] (42105) ALT (SGPT) 19 [iU]/L (Normal) Range: 0-32 [...] Glucose, Serum 89 mg/dL (Normal) Range: 65-99 :08 Lipid Panel (26649) Comments: PATIENT WAS FASTINGPERFORMED BY: [facility] Lmshom2807 Dianne Mendoza [place] [id number] LDL/HDL Ratio 1.9 {ratio_units} (Normal) Range: 0.0-3.2 [...] Cholesterol, Total 165 mg/dL (Normal) Range: 100-199 75-Mdv-43784:19 CBCMD RBCM NORM C+C {NORMAL} (Normal) PE [...] mg/dL Borderline >240 mg/dL High Risk :19 [facility] 0 SEEN {/hpf} (Normal) UBAC 0 [...] NEGATIVE CLARITY CLEAR (Normal) COLOR YELLOW (Normal) :25 NMR LIPOPROFILE LP-IR SCORE 22 (Normal) Comments: [...] 27 45 63 >63Performed at: [facility] [address] [place], [place] [id number] Director: Fany Martinez PhD, Phone: [phone] INSULIN RES SC . (Normal) INS RES/DIAB [...] 6.4-8.2 GLU 84 mg/dL (Normal) Range: 70-110 :15 COMPLETE UA BACTERIA RARE {/hpf} (Normal) MUCUS, [...] CHOL 162 mg/dL (Normal) Comments: <200 mg/dL Czekmagai015-345 mg/dL Borderline>240 mg/dL High Risk HDL 57 [...] 47-70 WBC 9.2 K/mm3 (Normal) Range: 4.4-11.0 44-Bjn-54183:12 COMP METABOLIC A/G 1.1 {RATIO} (Normal) Range: [...] T PROT 7.1 g/dL (Normal) Range: 6.4-8.2 13-Jun-20077:22 LIPID CHOL 141 mg/dL (Normal) Comments: <200 [...] mg/dL VLDL 14 mg/dL (Normal) Range: 5-40 63-Mhx-991623:00 LQD PAP [id number] Comments: CYTOLOGY INFORMATION:- CLINICAL INFORMATION: - DATE LMP/MENOPAUSE: MENOPAUSE- COLLECTION VIAL: Thin Prep Vial- LAST TURNER SOURCE: CERVICAL/ENDOCERVICAL- COLLECTION TECHNIQUE: BRUSH/SPATULA ADEQ Comment [...] no HPV testing was performed. .Performed At: [place] [id number] [address] [place] [address] [id number] PAPSMR Comment (Normal) Comments: The Pap smear is a screening test designed to aid in thedetection of premalignant and malignant conditions of theuterine cervix. It is not a diagnostic procedure andshould not be used as the sole means of detecting cervicalcancer. Both false-positive and false-negative reports dooccur. . PERFORM Comment (Normal) Comments: Leda Zhao, Supervisor [employer] (ASCP) Plan of Care Name Dates Details [...] with abnormal findings : *Well Female Maintenance ([facility]) Indication: Encounter for health maintenance examination with [...] 1 YEAR Indication: Hypertension, benign Planned Observations Culture, Aerobic, Bacterial ID ([id number])Indication: Vaginal odor On: 53-Ecl-238748:09 Request HPV automatic (04519)Indication: Screening for HPV (human papillomavirus) (Renamed from Encounter for screening for human papillomavirus (HPV)) On: 48-Nvl-691790:09 Request T3, FREE (TRIDOTHYRONINE) (28939)Indication: Subclinical hypothyroidism On: 29-Awc-651231:47 Request T4, FREE (THYROXINE) (54714)Indication: Subclinical hypothyroidism On: 46-Xhg-452948:47 Request TSH (THYROID STIMULATING HORMONE) (70141)Indication: Subclinical hypothyroidism On: 75-Uxn-566271:46 Request T4, FREE (THYROXINE) (12156)Indication: Subclinical hypothyroidism On: 05-Trp-722808:04 Request T3, FREE (TRIDOTHYRONINE) (30289)Indication: Subclinical hypothyroidism On: 57-Qqr-361341:04 Request MICROALBUMIN: CREATININE RATIO (62385) AND (71324)Indication: Hypertension, benign On: 89-Rru-623166:11 Request VITAMIN B12 AND FOLATES (26642)Indication: Hypertension, benign On: : Request CALCIFEDIOL (81844)Indication: Hypertension, benign On: Request TSH (THYROID STIMULATING HORMONE) (84385)Indication: Subclinical hypothyroidism On: : Request METABOLIC PANEL, COMPREHENSIVE (23283)Indication: Hypertension, benign On: : Request LIPID PANEL (94204)Indication: Hypertension, benign On: Request CBC, PLATELETS & AUT DIFF (66831)Indication: Hypertension, benign On: Request Anti-TPO Antibody (27874)Indication: Abnormal TSH On: Request T4, FREE (THYROXINE) (89896)Indication: Abnormal TSH On: Request T3, FREE (TRIDOTHYRONINE) (77984)Indication: Abnormal TSH On: : Request MICROALBUMIN: CREATININE RATIO (20005) AND (62979)Indication: Hypertension, benign On: Request HGB A1C (58764)Indication: Hypertension, benign On: Request VITAMIN B12 AND FOLATES (34012)Indication: Hypertension, benign On: Request CALCIFEDIOL (87617)Indication: Hypertension, benign On: Request TSH (THYROID STIMULATING HORMONE) (00484)Indication: Hypertension, benign On: Request LIPID PANEL (09227)Indication: Hypertension, benign On: 34 Request METABOLIC PANEL, COMPREHENSIVE (26509)Indication: Hypertension, benign On: :33 Request CBC, PLATELETS & AUT DIFF (85522)Indication: Hypertension, benign On: Request URINALYSIS, W/ MICRO (24343)Indication: Hypertension, benign On: :14 Request METABOLIC PANEL, COMPREHENSIVE (45360)Indication: Hypertension, benign On: :14 Request LIPID PANEL (04664)Indication: Hypertension, benign On: :14 Request CBC W/AUTO DIFF WBC (34774)Indication: Hypertension, benign On: 2-Ems-289075:14 Request URINALYSIS, W/ MICRO (13328)Indication: Hypertension, benign On: :51 Request METABOLIC PANEL, COMPREHENSIVE (50801)Indication: Hypertension, benign On: 26-Adg-068285:51 Request LIPID PANEL (12649)Indication: Hypertension, benign On: :51 Request CBC WITH MANUAL DIFF (21820)Indication: Hypertension, benign On: :51 Request URINALYSIS, W/ MICRO (65072)Indication: Hypertension, benign On: :48 Request METABOLIC PANEL, COMPREHENSIVE (09269)Indication: Hypertension, benign On: :48 Request CBC WITH MANUAL DIFF (80266)Indication: Hypertension, benign On: :48 Request LIPOPROTEIN, BLD, BY NMR (67122)Indication: Hypertension, benign On: :48 Request URINALYSIS, W/ MICRO (10647)Indication: Hypertension, benign On: 38-Nqj-567782:08 Request METABOLIC PANEL, COMPREHENSIVE (34527)Indication: Hypertension, benign On: 41-Umn-668174:08 Request LIPID PANEL (35553)Indication: Hypertension, benign On: :08 Request CBC WITH MANUAL DIFF (16954)Indication: Hypertension, benign On: :08 Request URINALYSIS W/O MICRO (65225)Indication: Hypertension, benign On: 81-Lfn-085865:00 Request METABOLIC PANEL, COMPREHENSIVE (28169)Indication: Hypertension, benign On: 43-Nmf-300816:00 Request LIPID PANEL (21437)Indication: Hypertension, benign On: 81-Ulc-692638:00 Request CBC WITH MANUAL DIFF (90202)Indication: Hypertension, benign On: 31-Dwh-744969:00 Request CBC (Auto) (42219)Indication: Hypertension, benign On: :51 Request Metabolic Panel, Comprehensive (26579)Indication: Hypertension, benign On: :51 Request Lipid Panel (41064)Indication: Hypertension, benign On: :51 Request Planned Procedures Wax Currettes (99772)By: Sharona On: 04-Jul-2018 Intent Nikky CARRASQUILLO DO, Kathleen Ear Irrigation (68820)By: Sharona On: 04-Jul-2018 Intent Nikky CARRASQUILLO DO, Kathleen Comments: R- full of cerumencopious amt of ceruemnt revomed - currettes used Aerosol Treatment (07402)By: Asuncion On: 14-Jun-2018 Intent ADOLESCENT MEDICINE SPECIALIST, Kasie Flu Vaccine (Quadrivalent) On: 19-May-2018 Intent 83289Hx: Nikky Tabor DO Comments: Lot #[id number]/30/19Site-L dltd, IMDose prefilled syringegiven by: Al VARGAS reviewed and ABN signed Nikky Tabor DO ELECTROCARDIOGRAM, COMPLETE (ECG) On: 16-Nov-2017 Intent (09822)By: Nikky Tabor DO Comments: nsr no acute chg Nikky Tabor DO DEXA SCAN AXIAL SKELETON On: 10-Nov-2017 Intent (08909)By: Nikky Tabor DO Comments: due after 08/20/18 Nikky Tabor DO SCREENING DIGITAL TOMOSYNTHESIS OF On: 10-Nov-2017 Intent BREAST (86105)By: Nikky Tabor DO, DO, Kathleen Flu Vaccine (Quadrivalent) On: 08-Jul-2017 Intent 47450Se: Visit, Nurse Comments: Lot #:[id number] date:02/21/18Amount given:0.5mlRoute: IMSite given: left deltoidGiven by: JAKOB Castellanos VAC ADLT/IMUMNOSPR, On: 02-Nov-2016 Intent SBC/INTRM (66098)By: Sharona CARRASQUILLO, Comments: Lot:[id number]:01/23/18Dose:0.5mg Route:im Site:r armGiven By:MIA signed Nikky Tellez DO Pelvic and Breast, Medicare On: 02-Nov-2016 Intent (G0101)By: Nikky Tabor DO, DO, Kathleen Aerosol Treatment (26196)By: Yoanna On: 08-Sep-2016 Intent MD, Onofre Solu -Medrol Injection, 125 mg On: 19-May-2016 Intent (J2930)By: Onofre Lenz MD Comments: [id number] hip, ImMLONG Flu Vaccine (Quadrivalent) On: 19-May-2016 Intent 79051Wc: Onofre Lenz MD Comments: FLUlot: [id number]:03/05/17site:Lt deltoidroute:IMdose:.5mlJAKOB HO Bone Density StudyBy: Yoanna NEELY, On: 19-May-2016 Intent Onofre MAMMOGRAM, SCREENING, BOTH BREAST On: 19-May-2016 Intent (28878)By: Onofre Lenz MD Comments: due after 08/20/16 Aerosol Treatment (71188)By: Asuncion On: 09-Dec-2015 Intent Samantha PATRICIA Nuclear Medicine - HIDA w/CPKBy: On: 31-Oct-2015 Intent Felisha Solorzano MD Comments: if us negative of GB Ultrasound - GallbladderBy: On: 31-Oct-2015 Intent Felisha Solorzano MD PNEUM VAC ADLT/IMUMNOSPR, On: 31-Oct-2015 Intent SBC/INTRM (37010)By: Felisha Solorzano MD Flu Vaccine (Quadrivalent) On: 31-Oct-2015 Intent 09173Bw: Felisha Solorzano MD Comments: Lot #:[id number] date:Amount given:0.5mlRoute: IMSite given:L DltdGiven by:VIS and ABN signed Quad Flu Solu -Medrol Injection, 125 mg On: 23-Apr-2015 Intent (J2930)By: Felisha Solorzano MD Solu -Medrol Injection, 125 mg On: 18-Mar-2015 Intent (J2930)By: Catherine Noel DO Comments: lot:[id number]:route:IMdose:125MGsite: R glutGiven by: BELLE Teague Spirometry (08548)By: Jeanine NEELY, On: 07-Feb-2015 Intent Felisha Owusu Comments: see scanned document of test done to see results reviewed today with patient Radiology - ChestBy: Jeanine NEELY, On: 07-Feb-2015 Intent Felisha Owusu Inhaler Demonstration (05090)By: On: 01-Feb-2015 Intent Samantha Roland CNP Aerosol Treatment (83912)By: Derik On: 01-Feb-2015 Intent Ashley DOUGLASS TDAP VACCINE >7 IM (66745)By: On: 10-Jul-2014 Intent Felisha Solorzano MD Comments: 7535x2.15.15prefilled syringeL Dltd, IMAS, LPNABN and VIS signed IMMUNIZ ADMNIN, 1 VAC, SNGL/COMBO On: 14-Jun-2014 Intent (69802)By: Visit, Nurse FLU VAC, SPLIT, >3 YEARS, On: 14-Jun-2014 Intent INTRAMUSC (32539)By: Visit, Nurse Comments: Lot:[id number]:05/22Amt:0.5mlRoute:IMSite: L DltdGiven By: Cassi COOPER signed IMMUNIZ ADMNIN, 1 VAC, SNGL/COMBO On: 21-Jun-2012 Intent (05705)By: June Robertson LPN Comments: Lot #[id number]-L dltd, IMDose prefilled syringegiven by:HAYLEE signed FLU VAC, SPLIT, >3 YEARS, On: 21-Jun-2012 Intent INTRAMUSC (58306)By: June Robertson LPN EKG (82192)By: Felisha Solorzano MD On: 16-Jun-2011 Intent FLU VAC, SPLIT, >3 YEARS, On: 16-Jun-2011 Intent INTRAMUSC (29655)By: Marcelo DOUGLASS, Comments: Lot #[id number]-L arm, IMDose prefilled given by:June Hanson IMMUNIZ ADMNIN, 1 VAC, SNGL/COMBO On: 16-Jun-2011 Intent (34205)By: June Robertson LPN EKG (21235)By: Felisha Solorzano MD On: 02-May-2010 Intent Holter Monitor 24 hrsBy: Jeanine On: 02-May-2010 Intent Felisha NEELY Echo CompleteBy: Felisha Solorzano MD On: 02-May-2010 Intent M Solu -Medrol Injection, 125 mg On: 27-Jan-2010 Intent (J2930)By: Felisha Solorzano MD EKG (48118)By: Felisha Solorzano MD On: 23-Sep-2009 Intent TDAP VACCINE >7 IM (91206)By: On: 20-Sep-2009 Intent Felisha Solorzano MD Comments: Lot #: [id number] date: mount given: 0.5 mlRoute: IMSite given: right deltoidGiven by: Zohra Bundy RN EKG (87291)By: Felisha Solorzano MD On: 19-Jul-2008 Intent FLU VAC, SPLIT, >3 YEARS, On: 04-Jul-2007 Intent INTRAMUSC (20411)By: ZEINAB Camacho IMMUNIZ ADMNIN, 1 VAC, SNGL/COMBO On: 04-Jul-2007 Intent (14444)By: ZEINAB Camacho Comments: Lot #:[id number] Expiration date:ount given:.5ml Route: IMSite given:right deltoid Given by: keyon TD Injection , IM (73061)By: On: 31-Dec-2006 Intent Felisha Solorzano MD EKG (29844)By: Felisha Solorzano MD On: 31-Dec-2006 Intent Venous [...] Onofre Lenz MD Instructions Name Dates Details Nonsmoker : How to access health information online Indication: Nonsmoker Nonsmoker : Patient Instructions Indication: Nonsmoker BMI 27.0-27.9,adult : How to access health [...] (gastroesophageal reflux disease) Encounters Office Visit On: 04-Jul-2018 10:07 Encounter Reason: Ceruminosis - No changes in management were made at the last visit. Symptoms include ear fullness, while symptoms do not include ear pain. Symptoms are located in the right ear. Onset was sudden.Encounter Diagnosis: End: 04-Jul-2018 10:45 BMI 27.0-27.9,adult, Nonsmoker, Ceruminosis, right, Otalgia, right, Nausea, Vertigo [facility] Office Visit On: 14-Jun-2018 8:50 Encounter Reason: [...] The patient does have durable power of assistant county attorney and living will. The patient has noticed nothing from the geriatic depressi on scale. Other providers contributing to the patient's care are geophysical support specialist.Encounter Diagnosis: BMI 27.0-27.9,adult, Nonsmoker, Encounter for annual [...] The patient does have durable power of assistant county attorney and living will. The patient has noticed nothing from the geriatic depressio n scale. Other providers contributing to the patient's care are geophysical support specialist., [ADDITIONAL REASON] Follow up for chronic medical [...] The patient does have durable power of assistant county attorney and living will. The patient has [...] Nutrition: balanced diet and supplemental vitamins. The me dical issues the patient is following up [...] PERSONAL, MALIGNANCY, SKIN MELANOMA (V10.82), WWV V73.21 [facility] Phone Encounter On: 08-May-2011 [...] (530.81), MALIGNANT MELANOMA, NOS, Other lymphedema (457.1), [facility] Office Visit On: 19-Jul-2008 12:36 [...] NOS, Other lymphedema (457.1), Acute bronchitis (466.0), [facility], Hemorrhoids (455.8), Allergic Rhinitis(477.9) [facility] [...] Headache (784.0), Hemorrhoids (455.8), Other lymphedema (457.1), [facility] Refill Request On: 09-Feb-2007 14:46 [...] pain (786.59), Other lymphedema (457.1), Gerd (530.81), [facility] Historical Summary On: 31-Dec-2006 9:10 [facility] End: 31-Dec-2006 9:16 Payers MedicareAnthem/Jasmeet cummins guarantor
--- OUTSIDE RECORDS SUMMARY | 2018-11-24 17:17 | XMS RPT_ITS | Continuity of Care Document ---
:1950 Author Organization [facility] Address [facility] [address] Phone Care Team Providers Name Role Phone [...] cut back alot of flour and sugardo [facility] later if still up next fu [...] Quantity: 20 {Tablet} Refills: 0 Ordered:19-May-2016 June Rboertson LPN Start : 07-May-2016 End : 19-May-2016 [...] Robertson LPN End : 08-Apr-2016 Inactive NYSTATIN, [id number] (External Cream) 1 Cream bid for 0 [...] Quantity: 30 {Capsule} Refills: 0 Ordered:01-Feb-2015 Slanishi LIME KILN OPERATOR, Ashley Start : 29-Oct-2014 End : 01-Feb-2015 [...] area has apt with Dr. Camarillo at [facility] in December Status: Inactive as of 12-May-2013 [...] Inactive as of 12-May-2013 WWV-sasha Comments: colonscopy [facility] spring 2011 Status: Inactive as of 16-Nov-2017 Procedures Procedure Dates Details axillary node dissection Completed Section Completed Comments: X 2 Colonoscopy Completed Comments: 08-14-14 Date Value Details 10-Dec-2017 Operative Report Result: Comments: See Note; NOTES: [facility] Medical Records Department [address] [place] [address] Operative Report 11/29/17 0905 MR#: [id number] Acct: [id number] Name: JAKY BRUSH Valentin Rep #: [id number] : 1950 66 From: Madi Morrell MD PCP: Nikky Tabor DO Status: DEP [facility] Y Location: EN Problem List (1) Eosinophilic esophagitis Status: Acute (2) Colon cancer screenin g Status: Acute Report of Operation Date of Procedure: 11/29/17 Pre-Operative Diagnosis: k20.0 eosinophilic esophagitis. z12.11 encounter for screening colonoscopy Post-Operative Diagnosis: 4323 e sophagogastroduodenoscopy with [place]. [address] colonoscopy Type of Anesthesia:: MAC Description of [...] Visit Report Result: Comments: See Note; NOTES: [facility] [place] [address] OFFICE VISIT Date of Service: 12/06/17 MR#: [id number] Acct: [id number] Name: JAKY RAM Rep #: [id number] : 1950 Provider: Madi Morrell MD Age/Sex: 66/F [facility] [facility] Status: Signed Intake Intake Visit Reasons: F/U EGD AND C-SCOPE 11/29 2017 Chief Complaint: eosi nophilic esophagitis--past due for EGD Wool Handler Required: No Is patient in pain?: No [...] Madi Morrell MD> Date Madi Morrell MD [facility] Signature: Date (if applicable) CC: Nikky Tabor DO 16-Nov-2017 Surgery Visit Report Result: Comments: See Note; NOTES: [facility] [address] [place] [address] OFFICE VISIT Date of Service: 11/16/17 MR#: [id number] Acct: [id number] Name: JAKY RAM Rep #: [id number] : 1950 Provider: Madi Morrell MD Age/Sex: 66/F Location: [facility] Status: Signed Intake Vital Signs11/16/17 Height 5 ft 2.3 in 11/16/17 Weight: 150 lb 9 oz Body Mass Index (BMI) 27.2 11/16/17 Blood Pressure 149/92 Intake Visit Reasons: Eosinophilic esophagitis and possible cscope Chief Complaint: eosinophilic esophagitis--past due for EGD Wool Handler Required: No Is patient in pain?: No [...] person, oriented to place, oriented to time [facility] Head: normocephalic, atraumatic Ears: external ears [...] (CAD), BILAT Result: Comments: See Note; NOTES: [facility] Imaging Services [address] [place] [address] SCREENING MAMM (CAD), BILAT MR#: [id number] Acct: [id number] Name: JAKY BRUSH Rep #: : 1950 F 66 From: Sergio Yang MD PCP: Nikky Tabor DO Status: REG CLI Study: SCREENING MAMM (CAD), BILAT Date of Exam: 11/12/17 Exam# [id number] Ordering Dr: Nikky Tabor DO MAMMOGRAPHY - [...] delay biopsy of a clinically suspicious abnormality. [id number] Electronically Signed: Sergio Yang MD at 8:12 EDT Tel [phone], Service support , CC: Nikky Tabor DO Business Architect: Signed 20-Aug-2016 Bilat Scrn Digital AND CAD Result: Comments: See Note; NOTES: [facility] Imaging Services [address] [place] [address] Verdana 4d Bilat Scrn Digital AND CAD MR#: [id number] Acct: [id number] Name: JAKY BRUSH Rep #: [id number] : 1950 F 65 From: Sergio Yang MD PCP: Onofre Lenz Status: REG CLI Study: Bilat Scrn Digital AND CAD Date of Exam: 08/20/16 Exam# [id number] Ordering Dr: Onofre Lenz MAMMOGRAPHY - BILATERAL [...] delay biopsy of a clinically suspicious abnormality. [id number] Electronically Signed: Sergio Yang MD zohra t 11:03 EST Tel [phone], Service support [phone], CC: Onofre Lenz Business Architect: Signed 20-Aug-2016 Dexa Bone Density Study (HP) Result: Comments: See Note; NOTES: [facility] Imaging Services [address] [place] [address] Verdana 4d Dexa Bone Density Study () MR#: [id number] Acct: [id number] Name: JAKY BRUSH Rep #: [id number] : 1950 F 65 From: Sergio Yang MD PCP: Onofre Lenz Status: [facility] Study: Dexa Bone Density Study (HP) Date of Exam: 08/20/16 Exam# [id number] Ordering Dr: Bear Lenz STUDY: DUAL ENERGY [...] Sergio Yang MD at 12:46 EST Tel [phone], Service support [phone], CC: Onofre Lenz Business Architect: Signed 08-Apr-2016 Spirometry (36549) Result: 31-Mar-2016 Spirometry (58039) Result: 08-Nov-2015 Gallbladder Result: Comments: See Note; NOTES: [facility] Imaging Services [address] [place] [address] Verdana 4d Gallbladder MR#: [id number] Acct: [id number] Name: JAKY BRUSH ep #: [id number] : 1950 F 64 From: Sergio Yang MD PCP: Felisha Solorzano MD Status: REG CLI Study: Gallbladder Date of Exam: 11/08/15 Exam# [id number] Ordering Dr: Felisha Solorzano MD ESA DY: [...] Sergio Yang MD at 9:51 EST Tel [phone], Service support [phone], CC: Felisha Solorzano MD Business Architect: Signed 19-Aug-2015 Bilat Scrn Digital AND CAD Result: Comments: See Note; NOTES: [facility] Imaging Services [address] [place] [address] Verdana 4d Bilat Scrn Digital AND CAD MR#: [id number] Acct: [id number] Name: JAKY BRUSH Rep #: [id number] : 1950 F 64 From: Sergio Yang MD PCP: Felisha Solorzano MD Status: REG CLI Study: Bilat Scrn Digital AND CAD Date of Exam: 08/19/15 Exam# [id number] Samra daniels Dr: Melvi Lovett MD MAMMOGRAPHY [...] biopsy of a clinically suspicious abnor mality. [id number] Electronically Signed: Sergio Yang MD at 11:23 EST Tel [phone], Service support [phone], CC: Felisha Solorzano MD; Melvi Lovett MD Business Architect: Signed 29-Oct-2014 Spirometry (22858) Comments: good effort and curve normal Result: 16-Aug-2014 Bilat Scrn Digital AND CAD Result: Comments: See Note; NOTES: [facility] Imaging Services [address] [place] [address] Breast Imaging Report MR#: [id number] Acct: [id number] Name: JAKY BRUSH Rep #: [id number] : 1950 F 63 From: Sergio Yang MD PCP: Felisha Solorzano MD Status: REG CLI Study: Bilat Scrn Digital AND CAD Date of Exam: 08/16/14 Exam# [id number] Ordering Dr: Melvi Lovett MD MAMMOGRAPHY - [...] Sergio Yang MD at 8:57 EST Tel [phone], Service support [phone], CC: Felisha Solorzano MD; Melvi Lovett MD Business Architect: Signed Immunization Name Dates Details Influenza (3 [...] smoker Vital Signs Date Test Result Details 92-Yxa-745054:10 Pulse 74 /min Comments: Pattern: Regular Respiration [...] hearing wnlDrMarilia and had a glaucoma test yqxx310/90 Pulse 98 /min Comments: Pattern: Regular Respiration [...] Height 0 in Head Circumference 0.00 cm 34-Qkl-479971:12 Temperature 98.7 f Comments: Method: Oral Pulse [...] 0.00 cm Results Date Description Value Details 5-Sge-622769:34 Sputum Culture Comments: PATIENT NOT FASTINGPERFORMED BY: [facility] [id number] Result 1 RRF (Normal) Comments: Routine respiratory tomas Lower Respiratory Culture Final report (Normal) 3-Csb-265593:34 Sputum Culture (00020) Comments: PATIENT NOT FASTINGPERFORMED BY: [facility] Healthrp [facility]CubitsEC[facility] [id number] Information: SRC:SP Gram Stain Evaluation GSACC (Normal) Comments: This specimen is of good quality and is acceptable for routinebacterial culture. Result 1 PCF (Normal) Comments: Few gram positive cocciFew gram variable coccobacilli Epithelial Cells Few (Normal) White Blood Cells None seen (Normal) 06-Cbv-568427:51 Microscopic Examination Comments: PATIENT NOT FASTINGPERFORMED BY: [employer]70 40billion.comAt[facility] Health [facility]son [id number] Bacteria None seen (Normal) Mucus Threads Present (Normal) Epithelial Cells (non renal) None seen {/hpf} (Normal) Range: 0 - 10 RBC None seen {/hpf} (Normal) Range: 0 - 2 WBC 0-5 {/hpf} (Normal) Range: 0 - 5 37-Goi-753249:51 CALCIFIDIOL (12384) VIT D 25 Comments: PATIENT NOT FASTINGPERFORMED BY: [facility] Hlpwgt7334 [place] [facility] [place] [id number] Vitamin D, 25-Hydroxy 68.5 ng/mL (Normal) Range: 30.0-100.0 Comments: Vitamin D deficiency has been defined by the [place] of[place]icine and an Endocrine Society practice guideline as alevel of serum 25-OH vitamin D less than 20 ng/mL (1,2).The Endocrine Society went on to further define vitamin Dinsufficiency as a level between 21 and 29 ng/mL (2).1. IOM ([place] of Medicine). 2010. Dietary reference intakes for calcium and D. [place]: The National Academies Press.2. Jadon MF, Abimael CHAWLA, Susan SANCHES, et al. Evaluation, treatment, and prevention of vitamin D deficiency: an Endocrine Society clinical practice guideline. JCEM. 2010; 96(7):1911-30. 85-Zum-401009:51 TSH (09341) Comments: PATIENT NOT FASTINGPERFORMED BY: [facility] Vpvgds4629 [facility] [id number] TSH 3.620 {uIU/mL} (Normal) Range: 0.450-4.500 40-Xtz-661693:51 URINALYSIS, W/ MICRO (24866) Comments: PATIENT NOT FASTINGPERFORMED BY: [facility] Vuztyt4431 [facility] [id number] Microscopic Examination See below: (Normal) Comments: Microscopic was indicated and was performed. Microscopic Examination MICRON (Normal) Comments: Microscopic follows if indicated. Nitrite, Urine Negative (Normal) Urobilinogen,Semi-Qn 0.2 mg/dL (Normal) Range: 0.2-1.0 Bilirubin Negative (Normal) Occult Blood Negative (Normal) Ketones Negative (Normal) Glucose Negative (Normal) Protein Negative (Normal) WBC Esterase Negative (Normal) Appearance Clear (Normal) Urine-Color Yellow (Normal) pH 6.0 (Normal) Range: 5.0-7.5 Specific Dalton 1.019 (Normal) Range: 1.005-1.030 19-Mzp-101489:51 METABOLIC PANEL, COMPREHENSIVE Comments: PATIENT NOT FASTINGPERFORMED BY: LabCoAstra Health CenterNqtona3720 [facility] [id number] (98532) ALT (SGPT) 21 [iU]/L (Normal) Range: 0-32 [...] 65-99 Gastric Biopsy See Note (Normal) Comments: [facility] [address] [place], [address] :00 Comments: Patient: JAKY BRUSH : 1950 (66/F) Acct Num: [id number] Phys: Petros NEELY,Madi Unit Num: [id number] Loc: EN Specimen: [id number] Received: 11/29/17 1143 Spec Type: Mikey nikia [...] one cassette. / RIGOBERTO:beba 11/29/17 TC:5 CPT: 72142 HEADER OPERATION: EGD with biopsy PRE-OP DIAG NOSIS: Eosinophilic esophagitis TISSUE SUBMITTED: Gastric polyp biopsy MICROSCOPIC DESCRIPTION Slides are reviewed. MICROSCOPIC DIAGNOSIS Gastric polyp, biopsy: Fundic gland polyp . See comment. SJ:rg 29090 Signed Shabbir Molinain 11/30/17 <signature on file> 2-Arj-582547:36 Microscopic Examination Comments: PATIENT WAS FASTINGPERFORMED BY: [employer] Owlwws3213 [facility] [id number] Bacteria None seen (Normal) Mucus Threads Present (Normal) Crystal Type Calcium Oxalate (Normal) Crystals Present (Abnormal) Epithelial Cells (non renal) 0-10 {/hpf} (Normal) Range: 0 - 10 RBC 0-2 {/hpf} (Normal) Range: 0 - 2 WBC 0-5 {/hpf} (Normal) Range: 0 - 5 9-Vin-788427:36 CALCIFEDIOL (75239) Comments: PATIENT WAS FASTINGPERFORMED BY: [facility] ButterfliesBarn[facility] Ttyfiw2675 [facility] [id number] Vitamin D, 25-Hydroxy 171.2 ng/mL (Abnormal) Range: 30.0-100.0 Comments: Results confirmed ondilution.Vitamin D deficiency has been defined by the [place] of[place]icine and an Endocrine Society practice guideline as alevel of serum 25-OH vitamin D less than 20 ng/mL (1,2).The Endocrine Society went on to further define vitamin Dinsufficiency as a level between 21 and 29 ng/mL (2).1. IOM ([place] of Medicine). 2010. Dietary reference intakes for calcium and D. [place]: The National Academies Press.2. Jadon MF, Abimael CHAWLA, Susan SANCHES, et al. Evaluation, treatment, and prevention of vitamin D deficiency: an Endocrine Society clinical practice guideline. JCEM. 2010; 96(7):1911-30. 1-Srn-627659:36 URINALYSIS, W/ MICRO (30731) Comments: PATIENT WAS FASTINGPERFORMED BY: [employer] Emgmhl6459 [facility] [id number] Microscopic Examination See below: (Normal) Comments: Microscopic was indicated and was performed. Microscopic Examination MICRON (Normal) Comments: Microscopic follows if indicated. Nitrite, Urine Negative (Normal) Urobilinogen,Semi-Qn 0.2 mg/dL (Normal) Range: 0.2-1.0 Bilirubin Negative (Normal) Occult Blood Negative (Normal) Ketones Trace (Abnormal) Glucose Negative (Normal) Protein Negative (Normal) WBC Esterase Negative (Normal) Appearance Clear (Normal) Urine-Color Yellow (Normal) pH 6.0 (Normal) Range: 5.0-7.5 Specific Dalton >=1.030 (Abnormal) Range: 1.005-1.030 9-Wxw-040142:36 MICROALBUMIN: CREATININE RATIO Comments: PATIENT WAS FASTINGPERFORMED BY: HelixisAstra Health CenterDgxwwj2935 [facility] [id number] (02697) AND (84163) Alb/Creat Ratio 5.9 {mg/g_creat} (Normal) Range: 0.0-30.0 Albumin, Urine 9.0 ug/mL (Normal) Creatinine, Urine 152.4 mg/dL (Normal) 0-Ljx-657264:36 METABOLIC PANEL, COMPREHENSIVE Comments: PATIENT WAS FASTINGPERFORMED BY: HelixisAstra Health CenterXhqccn3969 [facility] [id number] (50447) ALT (SGPT) 20 [iU]/L (Normal) Range: 0-32 [...] Glucose, Serum 93 mg/dL (Normal) Range: 65-99 2-Qga-343947:36 LIPID PANEL (73702) Comments: PATIENT WAS FASTINGPERFORMED BY: CBRITE [facility] Trzvui7797 [employer] [id number] LDL/HDL Ratio 1.8 {ratio_units} (Normal) Range: 0.0-3.2 Comments: LDL/HDL Ratio Men Women 1/2 Avg.Risk 1.0 1.5 Av g.Risk 3.6 3.2 2X Avg.Risk 6.2 5.0 3X Avg.Risk 8.0 6.1 LDL Cholesterol Calc 110 mg/dL (Abnormal) Range: 0-99 VLDL Cholesterol Medardo 10 mg/dL (Normal) Range: 5-40 HDL Cholesterol 61 mg/dL (Normal) Triglycerides 48 mg/dL (Normal) Range: 0-149 Cholesterol, Total 181 mg/dL (Normal) Range: 100-199 5-Dpz-241646:36 CBC W/AUTO DIFF WBC (78664) Comments: PATIENT WAS FASTINGPERFORMED BY: CBRITE [facility] Dokgbu7595 [employer] [id number] Immature Grans (Abs) 0.0 {x10E3/uL} (Normal) Range: [...] 3.77-5.28 WBC 6.7 {x10E3/uL} (Normal) Range: 3.4-10.8 3-Eia-915042:36 TSH (25990) Comments: PATIENT WAS FASTINGPERFORMED BY: [facility]CoSelena [place] 9307370 [facility] [id number] TSH 1.970 {uIU/mL} (Normal) Range: 0.450-4.500 1-Jeq-046150:36 T4, FREE (THYROXINE) (58145) Comments: PATIENT WAS FASTINGPERFORMED BY: LabM[facility] [place] [address] [id number] T4,Free(Direct) 1.29 ng/dL (Normal) Range: 0.82-1.77 7-Ihl-918943:36 T3, FREE (TRIDOTHYRONINE) (27759) Comments: PATIENT WAS FASTINGPERFORMED BY: LabCoAstra Health CenterPrypwq1664 [facility] [id number] Triiodothyronine,Free,Serum 3.1 pg/mL (Normal) Range: 2.0-4.4 50-Tiw-347921:37 NuSwab Vaginitis Plus Comments: PATIENT NOT FASTINGPERFORMED BY: Lab[address] [id number] Information: SRC:VA (trich/BV/GC/lillie W/O Herpes) (48662) Neisseria gonorrhoeae, Negative (Normal) STEPHANIE Chlamydia trachomatis, Negative (Normal) STEPHANIE Trich vag by STEPHANIE Negative (Normal) Felicitas glabrata, STEPHANIE Negative (Normal) Comments: This test was developed and its performance characteristics determinedby [facility]. It has not been cleared or approved [...] was developed and its performance characteristicsdetermined by [facility]. It has not been cleared or approvedby the Food and Drug Administration. The FDA has determinedthat such clearance or approval is not necessary. BVAB 2 Low - 0 {Score} (Normal) Atopobium vaginae Low - 0 {Score} (Normal) 85-Sjg-329220:26 CALCIFIDIOL (70305) VIT D 25 Comments: PATIENT NOT FASTINGPERFORMED BY: LabCoAstra Health CenterThuhso3300 [facility] [id number] Vitamin D, 25-Hydroxy 69.9 ng/mL (Normal) Range: 30.0-100.0 Comments: Vitamin D deficiency has been defined by the [place] of[place]icine and an Endocrine Society practice guideline as alevel of serum 25-OH vitamin D less than 20 ng/mL (1,2).The Endocrine Society went on to further define vitamin Dinsufficiency as a level between 21 and 29 ng/mL (2).1. IOM ([place] of Medicine). 2010. Dietary reference intakes for calcium and D. [place]: The National Academies Press.2. Jadon MF, Abimael CHAWLA, Susan SANCHES, et al. Evaluation, treatment, and prevention of vitamin D deficiency: an Endocrine Society clinical practice guideline. JCEM. 2010; 96(7):1911-30. :38 Thin prep Pap Comments: Source.............Cervix;EndocervixNo. of containers..01 CYTYC Thin Prep VialPATIENT NOT FASTINGPERFORMED BY: =G [facility] Mdvyjdyscn641 [address] PlazaAsia Pacific Digitalrleston [place] [id number] BY: [employer] (74921) (no STD rp Rauynzljdc262 [address] PlazaBoston Dispensaryrlesst. [facility] [place] [id number] Information: [id number] testing) Age Gdln ACOG Testing AGE6 (Normal) Comments: <21 or >65 or no age provided :38 Pap IG (Image Comments: Source.............Cervix;EndocervixNo. of containers..01 CYTYC Thin Prep VialPATIENT NOT FASTINGPERFORMED BY: =G [facility] Uahbwkpfce449 [address] PlazaAsia Pacific Digitalrleston [place] [id number] BY: WB [facility] Guided) Vtpnemostk878 [address]aux[address] PlazaYulisarlesst. luke[facility] [place] [id number] Note: PAPSMR (Normal) Comments: The Pap smear [...] guished in c ases of atrophy.Z00.01Ashley Delgado, Commercial Leasing Agent (ASCP) :37 CBC W/Diff, Automated Comments: [facility] [address] [place], [place], [id number] Absolute Lymph 1.88 {X10_3/ul} (Normal) Range: 0.83-4.51 [...] Patient Taking Vitamins or Folic Acid Supplements? [facility] [address]ta[address] [place], [address] GAP 11 (Normal) Range: 5-15 [...] Patient Taking Vitamins or Folic Acid Supplements? [facility] [address]qn[address] [place], [address] FOLATES 19.70 ng/mL (Abnormal) Range: 3.1-17.5 :37 Free T3 Comments: Is Patient Taking Vitamins or Folic Acid Supplements? [facility] [address] [place], [address] FREE T3 3.8 pg/mL (Normal) Range: 2.18-3.98 :37 Lipid Profile Comments: Is Patient Taking Vitamins or Folic Acid Supplements? [facility] Xszlwltdjq[address] [place], [id number] VLDL 11 mg/dL (Normal) Range: 5-40 LDL [...] High Risk :37 Microalb:Creat Ratio,Random UR Comments: [facility] [address] [place], [address] MALB:CREAT 5.3 {mg/g_CRE} (Normal) MICROALBUMIN,UR 6.6 mg/L (Normal) UR CREAT 124.00 mg/dL (Normal) :37 T4 Free Direct Comments: Is Patient Taking Vitamins or Folic Acid Supplements? [facility] [address]unm[address] [place], [id number] T4 FREE DIRECT 0.93 ng/dL (Normal) Range: 0.76-1.46 :37 Thyroid Stim Hormone (TSH) Comments: Is Patient Taking Vitamins or Folic Acid Supplements? [facility] [address] [place], [address] TSH 5.81 {uIU/mL} (Abnormal) Range: 0.358-3.74 :37 Vitamin B12 720 pg/mL (Normal) Comments: [facility] [address] [place], [id number] Range: 211-911 :14 CBC W/Diff, Automated Comments: [facility] [address] [place], [id number] Absolute Lymph 3.44 {X10_3/ul} (Normal) Range: 0.83-4.51 [...] Patient Taking Vitamins or Folic Acid Supplements? [facility] [address]wcwtyq[address] [place], [id number] GAP 10 (Normal) Range: 5-15 CO2 25.0 [...] Patient Taking Vitamins or Folic Acid Supplements? [facility] [address] [place], [address] FOLATES 43.60 ng/mL (Abnormal) Range: 3.1-17.5 :14 Free T3 Comments: PLEASE ADD FOLATES TO BLOOD FROM THIS MORNINGIs Patient Taking Vitamins or Folic Acid Supplements? [facility] [address] [place], [address] FREE T3 2.8 pg/mL (Normal) Range: 2.18-3.98 :14 Hemoglobin A1c Comments: [facility] [address] [place], [address] HGB A1C 5.6 % (Normal) Range: 4.2-6.3 :14 Lipid Profile Comments: PLEASE ADD FOLATES TO BLOOD FROM THIS MORNINGIs Patient Taking Vitamins or Folic Acid Supplements? [facility] [address]bwck[address] [place], [address] VLDL 30 mg/dL (Normal) Range: 5-40 [...] High Risk :14 Microalb:Creat Ratio,Random UR Comments: [facility] [address] [place], [address] MALB:CREAT 4.8 {mg/g_CRE} (Normal) MICROALBUMIN,UR 9.6 mg/L (Normal) UR CREAT 202.00 mg/dL (Normal) :14 T3 Total - Triiodothyronine Comments: [facility] [address] [place], [address] T3 Total 1.33 ng/mL (Normal) Range: 0.6-1.81 :14 T4 Free Direct Comments: PLEASE ADD FOLATES TO BLOOD FROM THIS MORNINGIs Patient Taking Vitamins or Folic Acid Supplements? [facility] [address]mq[address] [place], [id number] T4 FREE DIRECT 0.95 ng/dL (Normal) Range: 0.76-1.46 :14 T4 Total, Thyroxin Comments: PLEASE ADD FOLATES TO BLOOD FROM THIS MORNINGIs Patient Taking Vitamins or Folic Acid Supplements? [facility] [address] [place], [address] T4 THYROXIN 8.4 ug/dL (Normal) Range: 4.8-13.9 :14 Thyroid Peroxidase AB Comments: [facility] (refer to report for specific site)refer to report for address and phone number TPO AB 9696 13 {IU/mL} (Normal) Range: 0-34 Comments: Performed at: [address] [id number] Director: Tonio Bose PhD, Phone: [phone] :14 Thyroid Stim Hormone (TSH) Comments: PLEASE ADD FOLATES TO BLOOD FROM THIS MORNINGIs Patient Taking Vitamins or Folic Acid Supplements? [facility] [address]catr[address] [place], [id number] TSH 9.32 {uIU/mL} (Abnormal) Range: 0.358-3.74 :14 Vitamin B12 1240 pg/mL (Abnormal) Comments: [facility] Ckbkwfsbfy5380 [facility] [address]. [place], [id number] Range: 211-911 :14 Vitamin D,25 Hydroxy Comments: [facility] [address] [place], [id number] Vitamin D 25-OH 33.8 ng/mL (Normal) Comments: Vitamin D 25(OH) Status Range Deficiency <20 ng/mL (50nmol/L) Insuffciency 20 - 30 ng/mL (50 - 75 nmol/L) Sufficiency 30 - 100 ng/mL (75 - 250 nmol/L) Toxicity >100 ng/mL (>250 nmol/L) :25 Sputum Culture (87059) Comments: PATIENT NOT FASTINGPERFORMED BY: [facility] Ncojnv0989 [facility] [id number] Information: [id number] Result 1 RRF (Normal) Comments: Routine respiratory tomas Lower Respiratory Culture Final report (Normal) 0-Cmq-430433:37 CULTURE, SPUTUM (96486) Comments: PATIENT NOT FASTINGPERFORMED BY: [facility] Yasegj2330 [facility] [id number] Information: SRC:[facility] [id number] Result 1 RRF (Normal) Comments: Routine respiratory tomas Lower Respiratory Culture Final report (Normal) :26 CBC W/Diff, Automated Comments: Test performed at:[facility] [address] [place] [address] Absolute Lymph 1.93 {X10_3/ul} (Normal) [...] :26 Comprehensive Metabolic Profil Comments: Test performed at:[facility] [address] [place], [place] [address] GAP 10 (Normal) Range: 5-15 CO2 23.0 [...] 70-110 :26 Lipid Profile Comments: Test performed at:[facility] Oghgfmxwjm4349 [facility] [address] [place], [place] [id number] VLDL 16 mg/dL (Normal) Range: 5-40 LDL [...] 200-240 mg/dL Borderline >240 mg/dL High Risk 54-Axo-59533:26 Urinalysis, Complete Comments: How was Urine Obtained? CLEAN CATCHTest performed at:[facility] [address] [place] [address] MUCUS, URINE 0 SEEN {/hpf} (Normal) BACTERIA [...] Cloudy (Normal) COLOR Yellow (Normal) 14-Jun-20149:08 URINALYSIS (06174) Comments: PATIENT WAS FASTINGPERFORMED BY: [facility]6[address] [facility] [id number] Microscopic Examination MICNIP (Normal) Comments: Microscopic not indicated and not performed. Nitrite, Urine Negative (Normal) Urobilinogen,Semi-Qn 0.2 mg/dL (Normal) Range: 0.0-1.9 Bilirubin Negative (Normal) Occult Blood Negative (Normal) Ketones Negative (Normal) Glucose Negative (Normal) Protein Negative (Normal) WBC Esterase Negative (Normal) Appearance Clear (Normal) Urine-Color Yellow (Normal) pH 6.0 (Normal) Range: 5.0-7.5 Specific Dalton 1.027 (Normal) Range: 1.005-1.030 :08 MICROALBUMIN: CREATININE RATIO Comments: PATIENT WAS FASTINGPERFORMED BY: [facility] Ygxnbe3264 [facility] [id number] ([id number]) AND ([id number]) Microalb/Creat Ratio 3.6 {mg/g_creat} (Normal) Range: 0.0-30.0 Microalbumin, Urine 6.0 ug/mL (Normal) Range: 0.0-17.0 Creatinine, Urine 168.1 mg/dL (Normal) Range: 15.0-278.0 :08 TSH (26002) Comments: PATIENT WAS FASTINGPERFORMED BY: [facility] Jqywhk9614 [facility] [id number] TSH 4.310 {uIU/mL} (Normal) Range: 0.450-4.500 :08 CBC, Platelets & Auto Diff Comments: PATIENT WAS FASTINGPERFORMED BY: [facility]1 [facility] [id number] Information: [id number] ([id number]) Immature Grans (Abs) 0.0 {x10E3/uL} (Normal) Range: [...] Comprehensive Comments: PATIENT WAS FASTINGPERFORMED BY: [facility] Fgjhzv3562 [facility] [id number] ([id number]) ALT (SGPT) 19 [iU]/L (Normal) Range: 0-32 [...] mg/dL (Normal) Range: 65-99 :08 Lipid Panel (08371) Comments: PATIENT WAS FASTINGPERFORMED BY: [facility] Rhrxkp4800 [place] [id number] LDL/HDL Ratio 1.9 {ratio_units} (Normal) Range: 0.0-3.2 Comments: LDL/HDL Ratio Men Women 1/2 Avg.Risk 1.0 1.5 Av g.Risk 3.6 3.2 2X Avg.Risk 6.2 5.0 3X Avg.Risk 8.0 6.1 LDL Cholesterol Calc 97 mg/dL (Normal) Range: 0-99 VLDL Cholesterol Medarod 16 mg/dL (Normal) Range: 5-40 HDL Cholesterol 52 mg/dL (Normal) Comments: According to ATP-III Guidelines, HDL-C >59 mg/dL is considered anegative risk factor for CHD. Triglycerides 81 mg/dL (Normal) Range: 0-149 Cholesterol, Total 165 mg/dL (Normal) Range: 100-199 56-Yaz-56996:19 CBCMD RBCM NORM C+C {NORMAL} (Normal) PE [...] mg/dL Borderline >240 mg/dL High Risk :19 [facility] 0 SEEN {/hpf} (Normal) UBAC [...] 45 63 >63Performed at: [facility] [address] [place], [place] [id number] Director: Fany Martinez PhD, Phone: [phone] INSULIN RES SC . (Normal) INS RES/DIAB [...] CHOL 162 mg/dL (Normal) Comments: <200 mg/dL Cvojacuks327-852 mg/dL Borderline>240 mg/dL High Risk HDL 57 [...] 47-70 WBC 9.2 K/mm3 (Normal) Range: 4.4-11.0 52-Iyw-89631:12 COMP METABOLIC A/G 1.1 {RATIO} (Normal) Range: [...] mg/dL VLDL 14 mg/dL (Normal) Range: 5-40 40-Qtd-697136:00 LQD PAP [id number] Comments: CYTOLOGY INFORMATION:- CLINICAL INFORMATION: - DATE LMP/MENOPAUSE: MENOPAUSE- COLLECTION VIAL: Thin Prep Vial- SEAM CHECKER SOURCE: CERVICAL/ENDOCERVICAL- COLLECTION TECHNIQUE: BRUSH/SPATULA ADEQ Comment [...] no HPV testing was performed. .Performed At: [place] [id number] [place] [id number] PAPSMR Comment (Normal) Comments: The Pap smear is a screening test designed to aid in thedetection of premalignant and malignant conditions of theuterine cervix. It is not a diagnostic procedure andshould not be used as the sole means of detecting cervicalcancer. Both false-positive and false-negative reports dooccur. . PERFORM Comment (Normal) Comments: Leda Zhao, Commercial Leasing Agent (ASCP) Plan of Care Name Dates Details [...] with abnormal findings : *Well Female Maintenance ([facility]) Indication: Encounter for health maintenance examination with [...] benign Planned Observations Culture, Aerobic, Bacterial ID ([id number])Indication: Vaginal odor On: 97-Kok-014719:09 Request HPV automatic ([id number])Indication: Screening for HPV (human papillomavirus) (Renamed from Encounter for screening for human papillomavirus (HPV)) On: 32-Sjj-986191:09 Request T3, FREE (TRIDOTHYRONINE) (63820)Indication: Subclinical hypothyroidism On: 26-Rhh-948655:47 Request T4, FREE (THYROXINE) (95893)Indication: Subclinical hypothyroidism On: 46-Qxf-685626:47 Request TSH (THYROID STIMULATING HORMONE) (48083)Indication: Subclinical hypothyroidism On: 17-Vxq-807007:46 Request T4, FREE (THYROXINE) (42841)Indication: Subclinical hypothyroidism On: 49-Lgm-200906:04 Request T3, FREE (TRIDOTHYRONINE) (10004)Indication: Subclinical hypothyroidism On: 58-Kcd-436865:04 Request MICROALBUMIN: CREATININE RATIO (92182) AND (93210)Indication: Hypertension, benign On: 49-Yen-856824:11 Request VITAMIN B12 AND FOLATES (45208)Indication: Hypertension, benign On: : Request CALCIFEDIOL (67862)Indication: Hypertension, benign On: Request TSH (THYROID STIMULATING HORMONE) (59401)Indication: Subclinical hypothyroidism On: : Request METABOLIC PANEL, COMPREHENSIVE (06066)Indication: Hypertension, benign On: : Request LIPID PANEL (97973)Indication: Hypertension, benign On: Request CBC, PLATELETS & AUT DIFF (45529)Indication: Hypertension, benign On: Request Anti-TPO Antibody (69547)Indication: Abnormal TSH On: Request T4, FREE (THYROXINE) (67729)Indication: Abnormal TSH On: Request T3, FREE (TRIDOTHYRONINE) (10793)Indication: Abnormal TSH On: : Request MICROALBUMIN: CREATININE RATIO (61112) AND (85751)Indication: Hypertension, benign On: Request HGB A1C (25389)Indication: Hypertension, benign On: Request VITAMIN B12 AND FOLATES (98124)Indication: Hypertension, benign On: Request CALCIFEDIOL (69784)Indication: Hypertension, benign On: Request TSH (THYROID STIMULATING HORMONE) (95470)Indication: Hypertension, benign On: Request LIPID PANEL (97539)Indication: Hypertension, benign On: 34 Request METABOLIC PANEL, COMPREHENSIVE (98949)Indication: Hypertension, benign On: :33 Request CBC, PLATELETS & AUT DIFF (80408)Indication: Hypertension, benign On: Request URINALYSIS, W/ MICRO (81193)Indication: Hypertension, benign On: :14 Request METABOLIC PANEL, COMPREHENSIVE (89258)Indication: Hypertension, benign On: :14 Request LIPID PANEL (76848)Indication: Hypertension, benign On: :14 Request CBC W/AUTO DIFF WBC (35563)Indication: Hypertension, benign On: 1-Xys-955700:14 Request URINALYSIS, W/ MICRO (30654)Indication: Hypertension, benign On: :51 Request METABOLIC PANEL, COMPREHENSIVE (20788)Indication: Hypertension, benign On: 57-Jei-490070:51 Request LIPID PANEL (53555)Indication: Hypertension, benign On: :51 Request CBC WITH MANUAL DIFF (84097)Indication: Hypertension, benign On: :51 Request URINALYSIS, W/ MICRO (36099)Indication: Hypertension, benign On: :48 Request METABOLIC PANEL, COMPREHENSIVE (54800)Indication: Hypertension, benign On: :48 Request CBC WITH MANUAL DIFF (40831)Indication: Hypertension, benign On: :48 Request LIPOPROTEIN, BLD, BY NMR (62936)Indication: Hypertension, benign On: :48 Request URINALYSIS, W/ MICRO (50211)Indication: Hypertension, benign On: 81-Dyv-406850:08 Request METABOLIC PANEL, COMPREHENSIVE (60469)Indication: Hypertension, benign On: 51-Gmb-851336:08 Request LIPID PANEL (66713)Indication: Hypertension, benign On: :08 Request CBC WITH MANUAL DIFF (81036)Indication: Hypertension, benign On: :08 Request URINALYSIS W/O MICRO (64400)Indication: Hypertension, benign On: 03-Vfh-573224:00 Request METABOLIC PANEL, COMPREHENSIVE (26379)Indication: Hypertension, benign On: 22-Yfq-964483:00 Request LIPID PANEL (17341)Indication: Hypertension, benign On: 14-Tsx-499069:00 Request CBC WITH MANUAL DIFF (03439)Indication: Hypertension, benign On: 40-Owb-598498:00 Request CBC (Auto) (46945)Indication: Hypertension, benign On: :51 Request Metabolic Panel, Comprehensive (14120)Indication: Hypertension, benign On: :51 Request Lipid Panel (61539)Indication: Hypertension, benign On: :51 Request Planned Procedures Wax Currettes (71309)By: Sharona On: 04-Jul-2018 Intent Nikky CARRASQUILLO DO, Kathleen Ear Irrigation (37587)By: Sharona On: 04-Jul-2018 Intent Nikky CARRASQUILLO DO, Kathleen Comments: R- full of cerumencopious amt of ceruemnt revomed - currettes used Aerosol Treatment (25695)By: Asuncion On: 14-Jun-2018 Intent BANK CREDIT CARD COLLECTION CLERK, Kasie Flu Vaccine (Quadrivalent) On: 19-May-2018 Intent 47883Ga: Nikky Tabor DO Comments: Lot #[id number]/30/19Site-L dltd, IMDose prefilled syringegiven by: Al VARGAS reviewed and ABN signed Nikky Tabor DO ELECTROCARDIOGRAM, COMPLETE (ECG) On: 16-Nov-2017 Intent (97259)By: Nikky Tabor DO Comments: nsr no acute chg Nikky Tabor DO DEXA SCAN AXIAL SKELETON On: 10-Nov-2017 Intent (77321)By: Nikky Tabor DO Comments: due after 08/20/18 Nikky Tabor DO SCREENING DIGITAL TOMOSYNTHESIS OF On: 10-Nov-2017 Intent BREAST (78656)By: Nikky Tabor DO, DO, Kathleen Flu Vaccine (Quadrivalent) On: 08-Jul-2017 Intent 10436Jt: Visit, Nurse Comments: Lot #:[id number] date:02/21/18Amount given:0.5mlRoute: IMSite given: left deltoidGiven by: JAKOB Castellanos VAC ADLT/IMUMNOSPR, On: 02-Nov-2016 Intent SBC/INTRM (90246)By: Sharona CARRASQUILLO, Comments: Lot:[id number]:01/23/18Dose:0.5mg Route:im Site:r armGiven By:MIA signed Nikky Tellez DO Pelvic and Breast, Medicare On: 02-Nov-2016 Intent (G0101)By: Nikky Tabor DO, DO, Kathleen Aerosol Treatment (90515)By: Yoanna On: 08-Sep-2016 Intent MD, Onofre Solu -Medrol Injection, 125 mg On: 19-May-2016 Intent (J2930)By: Onofre Lenz MD Comments: [id number] hip, ImMLONG Flu Vaccine (Quadrivalent) On: 19-May-2016 Intent 73734Yj: Onofre Lenz MD Comments: FLUlot: [id number]:03/05/17site:Lt deltoidroute:IMdose:.5mlJAKOB HO Bone Density StudyBy: Yoanna NEELY, On: 19-May-2016 Intent Onofre MAMMOGRAM, SCREENING, BOTH BREAST On: 19-May-2016 Intent (47278)By: Onofre Lenz MD Comments: due after 08/20/16 Aerosol Treatment (57395)By: Asuncion On: 09-Dec-2015 Intent Samantha PATRICIA Nuclear Medicine - HIDA w/CPKBy: On: 31-Oct-2015 Intent Felisha Solorzano MD Comments: if us negative of GB Ultrasound - GallbladderBy: On: 31-Oct-2015 Intent Felisha Solorzano MD PNEUM VAC ADLT/IMUMNOSPR, On: 31-Oct-2015 Intent SBC/INTRM (15167)By: Felisha Solorzano MD Flu Vaccine (Quadrivalent) On: 31-Oct-2015 Intent 79988Ba: Felisha Solorzano MD Comments: Lot #:[id number] date:Amount given:0.5mlRoute: IMSite given:L DltdGiven by:VIS and ABN signed Quad Flu Solu -Medrol Injection, 125 mg On: 23-Apr-2015 Intent (J2930)By: Felisha Solorzano MD Solu -Medrol Injection, 125 mg On: 18-Mar-2015 Intent (J2930)By: Catherine Noel DO Comments: lot:[id number]:route:IMdose:125MGsite: R glutGiven by: BELLE Teague Spirometry (57603)By: Jeanine NEELY, On: 07-Feb-2015 Intent Felisha Owusu Comments: see scanned document of test done to see results reviewed today with patient Radiology - ChestBy: Jeanine NEELY, On: 07-Feb-2015 Intent Felisha Owusu Inhaler Demonstration (84268)By: On: 01-Feb-2015 Intent Samantha Roland CNP Aerosol Treatment (71704)By: Derik On: 01-Feb-2015 Intent Ashley DOUGLASS TDAP VACCINE >7 IM (47074)By: On: 10-Jul-2014 Intent Felisha Solorzano MD Comments: 7535x2.15.15prefilled syringeL Dltd, IMAS, LPNABN and VIS signed IMMUNIZ ADMNIN, 1 VAC, SNGL/COMBO On: 14-Jun-2014 Intent (50060)By: Visit, Nurse FLU VAC, SPLIT, >3 YEARS, On: 14-Jun-2014 Intent INTRAMUSC (83513)By: Visit, Nurse Comments: Lot:[id number]/22Amt:0.5mlRoute:IMSite: L DltdGiven By: Cassi COOPER signed IMMUNIZ ADMNIN, 1 VAC, SNGL/COMBO On: 21-Jun-2012 Intent (64669)By: June Robertson LPN Comments: Lot #[id number]-L dltd, IMDose prefilled syringegiven by:HAYLEE signed FLU VAC, SPLIT, >3 YEARS, On: 21-Jun-2012 Intent INTRAMUSC (33934)By: June Robertson LPN EKG (73898)By: Felisha Solorzano MD On: 16-Jun-2011 Intent FLU VAC, SPLIT, >3 YEARS, On: 16-Jun-2011 Intent INTRAMUSC (95894)By: Marcelo DOUGLASS, Comments: Lot #[id number]-L arm, IMDose prefilled given by:June Hanson IMMUNIZ ADMNIN, 1 VAC, SNGL/COMBO On: 16-Jun-2011 Intent (26216)By: June Robertson LPN EKG (84849)By: Felisha Solorzano MD On: 02-May-2010 Intent Holter Monitor 24 hrsBy: Jeanine On: 02-May-2010 Intent Felisha NEELY Echo CompleteBy: Felisha Solorzano MD On: 02-May-2010 Intent M Solu -Medrol Injection, 125 mg On: 27-Jan-2010 Intent (J2930)By: Felisha Solorzano MD EKG (87240)By: Felisha Solorzano MD On: 23-Sep-2009 Intent TDAP VACCINE >7 IM (34783)By: On: 20-Sep-2009 Intent Felisha Solorzano MD Comments: Lot #: [id number] date: mount given: 0.5 mlRoute: IMSite given: right deltoidGiven by: Zohra Bundy RN EKG (10750)By: Felisha Solorzano MD On: 19-Jul-2008 Intent FLU VAC, SPLIT, >3 YEARS, On: 04-Jul-2007 Intent INTRAMUSC (70577)By: ZEINAB Camacho IMMUNIZ ADMNIN, 1 VAC, SNGL/COMBO On: 04-Jul-2007 Intent (74430)By: ZEINAB Camacho Comments: Lot #:[id number] Expiration date:ount given:.5ml Route: IMSite given:right deltoid Given by: keyon TD Injection , IM (06388)By: On: 31-Dec-2006 Intent Felisha Solorzano MD EKG (24973)By: Felisha Solorzano MD On: 31-Dec-2006 Intent Venous [...] The patient does have durable power of trial attorney and living will. The patient has noticed nothing from the geriatic depressi on scale. Other providers contributing to the patient's care are psych coordinator.Encounter Diagnosis: BMI 27.0-27.9,adult, Nonsmoker, Encounter for annual [...] The patient does have durable power of trial attorney and living will. The patient has noticed nothing from the geriatic depressio n scale. Other providers contributing to the patient's care are psych coordinator., [ADDITIONAL REASON] Follow up for chronic medical [...] The patient does have durable power of trial attorney and living will. The patient has [...] PERSONAL, MALIGNANCY, SKIN MELANOMA (V10.82), WWV V73.21 [facility] Phone Encounter On: 08-May-2011 [...] (530.81), MALIGNANT MELANOMA, NOS, Other lymphedema (457.1), [facility] On: 19-Jul-2008 [...] NOS, Other lymphedema (457.1), Acute bronchitis (466.0), [facility], Hemorrhoids (455.8), Allergic Rhinitis(477.9) [facility] [...] Headache (784.0), Hemorrhoids (455.8), Other lymphedema (457.1), [facility] Internal Medicine Refill Request On: 09-Feb-2007 [...] pain (786.59), Other lymphedema (457.1), Gerd (530.81), [facility] Historical Summary On: 31-Dec-2006 9:10 [facility] End: 31-Dec-2006 9:16 Payers MedicareAnthem/Jasmeet cummins guarantor
--- OUTSIDE RECORDS SUMMARY | 2018-11-24 17:18 | XMS RPT_ITS | Continuity of Care Document ---
:1950 Author Organization [facility] Address [facility] [address] Phone Care Team Providers Name Role Phone [...] cut back alot of flour and sugardo the medical center later if still up next fu Status: [...] Robertson LPN End : 08-Apr-2016 Inactive NYSTATIN, [id number]/GM (External Cream) 1 Cream bid for 0 [...] Quantity: 30 {Capsule} Refills: 0 Ordered:01-Feb-2015 Slanishi INSPECTOR RECEIVING, Ashley Start : 29-Oct-2014 End : 01-Feb-2015 [...] area has apt with Dr. Camarillo at [facility] in December Status: Inactive as of 12-May-2013 [...] Inactive as of 12-May-2013 WWV-sasha Comments: colonscopy [facility] spring 2011 Status: Inactive as of 16-Nov-2017 Procedures Procedure Dates Details axillary node dissection Completed Section Completed Comments: X 2 Colonoscopy Completed Comments: 08-14-14 Date Value Details 10-Dec-2017 Operative Report Result: Comments: See Note; NOTES: [facility] Medical Records Department [address] [place] [address] Operative Report 11/29/17 0905 MR#: [id number] Acct: [id number] Name: JAKY BRUSH Valentin Rep #: [id number] : 1950 66 From: Madi Morrell MD PCP: Nikky Tabor DO Status: DEP [facility] [place] [facility] Location: EN Problem List (1) Eosinophilic esophagitis Status: Acute (2) Colon cancer screenin g Status: Acute Report of Operation Date of Procedure: 11/29/17 Pre-Operative Diagnosis: k20.0 eosinophilic esophagitis. z12.11 encounter for screening colonoscopy Post-Operative Diagnosis: 4323 e sophagogastroduodenoscopy with biopsy. 58768 colonoscopy Type of Anesthesia:: MAC Description of [...] Visit Report Result: Comments: See Note; NOTES: [facility] [place] [address] OFFICE VISIT Date of Service: 12/06/17 MR#: [id number] Acct: [id number] Name: JAKY RAM Rep #: [id number] : 1950 Provider: Madi Morrell MD Age/Sex: 66/F Location[facility] Status: Signed Intake Intake Visit Reasons: F/U EGD AND C-SCOPE 11/29 2017 Chief Complaint: eosi nophilic esophagitis--past due for EGD Travel Rn Required: No Is patient in pain?: No [...] Madi Morrell MD> Date Madi Morrell MD [facility] Signature: Date (if applicable) CC: Nikky Tabor DO 16-Nov-2017 Surgery Visit Report Result: Comments: See Note; NOTES: [facility] [address] [place] [address] OFFICE VISIT Date of Service: 11/16/17 MR#: [id number] Acct: [id number] Name: JAKY RAM Rep #: [id number] : 1950 Provider: Madi Morrell MD Age/Sex: 66/F Location: [facility] Status: Signed Intake Vital Signs11/16/17 Height 5 ft 2.3 in 11/16/17 Weight: 150 lb 9 oz Body Mass Index (BMI) 27.2 11/16/17 Blood Pressure 149/92 Intake Visit Reasons: Eosinophilic esophagitis and possible cscope Chief Complaint: eosinophilic esophagitis--past due for EGD Travel Rn Required: No Is patient in pain?: No [...] person, oriented to place, oriented to time [facility] Head: normocephalic, atraumatic Ears: external ears [...] (CAD), BILAT Result: Comments: See Note; NOTES: [facility] Imaging Services [address] [place] [address] SCREENING MAMM (CAD), BILAT MR#: [id number] Acct: [id number] Name: JAKY BRUSH Rep #: : 1950 F 66 From: Sergio Yang MD PCP: Nikky Tabor DO Status: REG CLI Study: SCREENING MAMM (CAD), BILAT Date of Exam: 11/12/17 Exam# [id number] Ordering Dr: Nikky Tabor DO MAMMOGRAPHY - [...] delay biopsy of a clinically suspicious abnormality. [id number] Electronically Signed: Sergio Yang MD at 8:12 EDT Tel [phone], Service support [phone], CC: Nikky Tabor DO Armored Machine Operator: Signed 20-Aug-2016 Bilat Scrn Digital AND CAD Result: Comments: See Note; NOTES: [facility] Imaging Services [address] [place] [address] Verdana 4d Bilat Scrn Digital AND CAD MR#: [id number] Acct: [id number] Name: JAKY BRUSH Rep #: [id number] : 1950 F 65 From: Sergio Yang MD PCP: Onofre Lenz Status: REG CLI Study: Bilat Scrn Digital AND CAD Date of Exam: 08/20/16 Exam# [id number] Ordering Dr: Onofre Lenz MAMMOGRAPHY - BILATERAL [...] delay biopsy of a clinically suspicious abnormality. [id number] Electronically Signed: Sergio Yang MD zohra t 11:03 EST Tel [phone], Service support [phone], CC: Onofre Lenz Armored Machine Operator: Signed 20-Aug-2016 Dexa Bone Density Study (HP) Result: Comments: See Note; NOTES: [facility] Imaging Services [address] [place] [address] Verdana 4d Dexa Bone Density Study () MR#: [id number] Acct: [id number] Name: JAKY BRUSH Rep #: [id number] : 1950 F 65 From: Sergio Yang MD PCP: Onofre Lenz Status: [facility] Study: Dexa Bone Density Study (HP) Date of Exam: 08/20/16 Exam# [id number] Ordering Dr: Bear Lenz STUDY: DUAL ENERGY [...] Sergio Yang MD at 12:46 EST Tel [phone], Service support [phone], CC: Onofre Lenz Armored Machine Operator: Signed 08-Apr-2016 Spirometry (29912) Result: 31-Mar-2016 Spirometry (97910) Result: 08-Nov-2015 Gallbladder Result: Comments: See Note; NOTES: [facility] Imaging Services [address] [place] [address] Verdana 4d Gallbladder MR#: [id number] Acct: [id number] Name: JAKY BRUSH ep #: [id number] : 1950 F 64 From: Sergio Yang MD PCP: Felisha Solorzano MD Status: REG CLI Study: Gallbladder Date of Exam: 11/08/15 Exam# [id number] Ordering Dr: Felisha Solorzano MD ESA DY: [...] Sergio Yang MD at 9:51 EST Tel [phone], Service support [phone], CC: Felisha Solorzano MD Armored Machine Operator: Signed 19-Aug-2015 Bilat Scrn Digital AND CAD Result: Comments: See Note; NOTES: [facility] Imaging Services [address] [place] [address] Verdana 4d Bilat Scrn Digital AND CAD MR#: [id number] Acct: [id number] Name: JAKY BRUSH Rep #: [id number] : 1950 F 64 From: Sergio Yang MD PCP: Felisha Solorzano MD Status: REG CLI Study: Bilat Scrn Digital AND CAD Date of Exam: 08/19/15 Exam# [id number] Samra daniels Dr: Melvi Lovett MD MAMMOGRAPHY [...] biopsy of a clinically suspicious abnor mality. [id number] Electronically Signed: Sergio Yang MD at 11:23 EST Tel [phone], Service support [phone], CC: Felisha Solorzano MD; Melvi Lovett MD Armored Machine Operator: Signed 29-Oct-2014 Spirometry (36224) Comments: good effort and curve normal Result: 16-Aug-2014 Bilat Scrn Digital AND CAD Result: Comments: See Note; NOTES: [facility] Imaging Services [address] [place] [address] Breast Imaging Report MR#: [id number] Acct: [id number] Name: JAKY BRUSH Rep #: [id number] : 1950 F 63 From: Sergio Yang MD PCP: Feilsha Solorzano MD Status: REG CLI Study: Bilat Scrn Digital AND CAD Date of Exam: 08/16/14 Exam# [id number] Ordering Dr: Melvi Lovett MD MAMMOGRAPHY - [...] Sergio Yang MD at 8:57 EST Tel [phone], Service support [phone], CC: Felisha Solorzano MD; Melvi Lovett MD Armored Machine Operator: Signed Immunization Name Dates Details Influenza (3 [...] smoker Vital Signs Date Test Result Details 73-Qms-366685:10 Pulse 74 /min Comments: Pattern: Regular Respiration [...] hearing wnlDrMarilia and had a glaucoma test rcmm594/90 Pulse 98 /min Comments: Pattern: Regular Respiration [...] Height 0 in Head Circumference 0.00 cm 09-Noq-279871:12 Temperature 98.7 f Comments: Method: Oral Pulse [...] 0.00 cm Results Date Description Value Details 7-Jfl-732205:34 Sputum Culture Comments: PATIENT NOT FASTINGPERFORMED BY: [facility]aboAt[facility] [id number] Result 1 RRF (Normal) Comments: Routine respiratory tomas Lower Respiratory Culture Final report (Normal) 8-Zdq-547845:34 Sputum Culture (35687) Comments: PATIENT NOT FASTINGPERFORMED BY: Tararirp Creative Artists AgencyAt[facility] [id number] Information: SRC:SP Gram Stain Evaluation GSACC (Normal) Comments: This specimen is of good quality and is acceptable for routinebacterial culture. Result 1 PCF (Normal) Comments: Few gram positive cocciFew gram variable coccobacilli Epithelial Cells Few (Normal) White Blood Cells None seen (Normal) 37-Ktc-245729:51 Microscopic Examination Comments: PATIENT NOT FASTINGPERFORMED BY: PlayFirst70 [employer] [facility]Formerly [facility] [id number] Bacteria None seen (Normal) Mucus Threads Present (Normal) Epithelial Cells (non renal) None seen {/hpf} (Normal) Range: 0 - 10 RBC None seen {/hpf} (Normal) Range: 0 - 2 WBC 0-5 {/hpf} (Normal) Range: 0 - 5 67-Fls-231473:51 CALCIFIDIOL (60854) VIT D 25 Comments: PATIENT NOT FASTINGPERFORMED BY: [facility]onicSaint [facility] Ewruem6027 [facility] [place] [id number] Vitamin D, 25-Hydroxy 68.5 ng/mL (Normal) Range: 30.0-100.0 Comments: Vitamin D deficiency has been defined by the Barnard ofMedicine and an Endocrine Society practice guideline as alevel of serum 25-OH vitamin D less than 20 ng/mL (1,2).The Endocrine Society went on to further define vitamin Dinsufficiency as a level between 21 and 29 ng/mL (2).1. IOM (Barnard of Medicine). 2010. Dietary reference intakes for calcium and D. [place]: The National Academies Press.2. Jadon MF, Abimael CHAWLA, Susan SANCHES, et al. Evaluation, treatment, and prevention of vitamin D deficiency: an Endocrine Society clinical practice guideline. JCEM. 2010; 96(7):1911-30. 71-Jom-805734:51 TSH (46266) Comments: PATIENT NOT FASTINGPERFORMED BY: [facility] Kbheob6567 [facility] [id number] TSH 3.620 {uIU/mL} (Normal) Range: 0.450-4.500 31-Tsc-547504:51 URINALYSIS, W/ MICRO (63966) Comments: PATIENT NOT FASTINGPERFORMED BY: LabCo Nnhglh9154 [facility] [id number] Microscopic Examination See below: (Normal) Comments: Microscopic was indicated and was performed. Microscopic Examination MICRON (Normal) Comments: Microscopic follows if indicated. Nitrite, Urine Negative (Normal) Urobilinogen,Semi-Qn 0.2 mg/dL (Normal) Range: 0.2-1.0 Bilirubin Negative (Normal) Occult Blood Negative (Normal) Ketones Negative (Normal) Glucose Negative (Normal) Protein Negative (Normal) WBC Esterase Negative (Normal) Appearance Clear (Normal) Urine-Color Yellow (Normal) pH 6.0 (Normal) Range: 5.0-7.5 Specific [place] [facility] 1.019 (Normal) Range: 1.005-1.030 66-Rci-309056:51 METABOLIC PANEL, COMPREHENSIVE Comments: PATIENT NOT FASTINGPERFORMED BY: LabCoSt. Lawrence Rehabilitation CenterYfqguz9630 [facility] [id number] (05603) ALT (SGPT) 21 [iU]/L (Normal) Range: 0-32 [...] 65-99 Gastric Biopsy See Note (Normal) Comments: [facility] [address] [place], [address] :00 Comments: Patient: JAKY BRUSH : 1950 (66/F) Acct Num: [id number] Phys: Petros NEELY,Madi Unit Num: [id number] Loc: EN Specimen: [id number] Received: 11/29/17 1143 Spec Type: Mikey nikia [...] one cassette. / RIGOBERTO:beba 11/29/17 TC:5 CPT: 41579 HEADER OPERATION: EGD with biopsy PRE-OP DIAG NOSIS: Eosinophilic esophagitis TISSUE SUBMITTED: Gastric polyp biopsy MICROSCOPIC DESCRIPTION Slides are reviewed. MICROSCOPIC DIAGNOSIS Gastric polyp, biopsy: Fundic gland polyp . See comment. SJ:rg [id number] Signed Shabbir Molinain 11/30/17 <signature on file> 4-Ypm-152769:36 Microscopic Examination Comments: PATIENT WAS FASTINGPERFORMED BY: JANZZ Fgvqss2370 [facility] [id number] Bacteria None seen (Normal) Mucus Threads Present (Normal) Crystal Type Calcium Oxalate (Normal) Crystals Present (Abnormal) Epithelial Cells (non renal) 0-10 {/hpf} (Normal) Range: 0 - 10 RBC 0-2 {/hpf} (Normal) Range: 0 - 2 WBC 0-5 {/hpf} (Normal) Range: 0 - 5 6-Rrl-672926:36 CALCIFEDIOL (13908) Comments: PATIENT WAS FASTINGPERFORMED BY: [facility]onicSaint [facility] Hjnoqu5260 [facility] [id number] Vitamin D, 25-Hydroxy 171.2 ng/mL (Abnormal) Range: 30.0-100.0 Comments: Results confirmed ondilution.Vitamin D deficiency has been defined by the Barnard ofMedicine and an Endocrine Society practice guideline as alevel of serum 25-OH vitamin D less than 20 ng/mL (1,2).The Endocrine Society went on to further define vitamin Dinsufficiency as a level between 21 and 29 ng/mL (2).1. IOM (Barnard of Medicine). 2010. Dietary reference intakes for calcium and D. [place]: The National Academies Press.2. Jadon MF, Abimael CHAWLA, Susan SANCHES, et al. Evaluation, treatment, and prevention of vitamin D deficiency: an Endocrine Society clinical practice guideline. JCEM. 2010; 96(7):1911-30. 8-Pny-873300:36 URINALYSIS, W/ MICRO (42963) Comments: PATIENT WAS FASTINGPERFORMED BY: JANZZ Mmmerr3556 [facility] [id number] Microscopic Examination See below: (Normal) Comments: Microscopic was indicated and was performed. Microscopic Examination MICRON (Normal) Comments: Microscopic follows if indicated. Nitrite, Urine Negative (Normal) Urobilinogen,Semi-Qn 0.2 mg/dL (Normal) Range: 0.2-1.0 Bilirubin Negative (Normal) Occult Blood Negative (Normal) Ketones Trace (Abnormal) Glucose Negative (Normal) Protein Negative (Normal) WBC Esterase Negative (Normal) Appearance Clear (Normal) Urine-Color Yellow (Normal) pH 6.0 (Normal) Range: 5.0-7.5 Specific [facility] >=1.030 (Abnormal) Range: 1.005-1.030 0-Uxh-296752:36 MICROALBUMIN: CREATININE RATIO Comments: PATIENT WAS FASTINGPERFORMED BY: JANZZSt. Lawrence Rehabilitation CenterDgokfs3266 [facility] [id number] (24017) AND (26934) Alb/Creat Ratio 5.9 {mg/g_creat} (Normal) Range: 0.0-30.0 Albumin, Urine 9.0 ug/mL (Normal) Creatinine, Urine 152.4 mg/dL (Normal) 2-Ela-448410:36 METABOLIC PANEL, COMPREHENSIVE Comments: PATIENT WAS FASTINGPERFORMED BY: JANZZSt. Lawrence Rehabilitation CenterAdsrws9788 [facility] [id number] (13474) ALT (SGPT) 20 [iU]/L (Normal) Range: 0-32 [...] Glucose, Serum 93 mg/dL (Normal) Range: 65-99 7-Gal-424566:36 LIPID PANEL (26495) Comments: PATIENT WAS FASTINGPERFORMED BY: Hemoteq [facility] Wnyyqr7270 [facility] [id number] LDL/HDL Ratio 1.8 {ratio_units} (Normal) Range: 0.0-3.2 Comments: LDL/HDL Ratio Men Women 1/2 Avg.Risk 1.0 1.5 Av g.Risk 3.6 3.2 2X Avg.Risk 6.2 5.0 3X Avg.Risk 8.0 6.1 LDL Cholesterol Calc 110 mg/dL (Abnormal) Range: 0-99 VLDL Cholesterol Medardo 10 mg/dL (Normal) Range: 5-40 HDL Cholesterol 61 mg/dL (Normal) Triglycerides 48 mg/dL (Normal) Range: 0-149 Cholesterol, Total 181 mg/dL (Normal) Range: 100-199 6-Kfd-386099:36 CBC W/AUTO DIFF WBC (62463) Comments: PATIENT WAS FASTINGPERFORMED BY: Hemoteq [facility] Cupbli6869 [facility] [id number] Immature Grans (Abs) 0.0 {x10E3/uL} (Normal) Range: [...] 3.77-5.28 WBC 6.7 {x10E3/uL} (Normal) Range: 3.4-10.8 2-Llz-551615:36 TSH (21186) Comments: PATIENT WAS FASTINGPERFORMED BY: LabCoPaul Ville [id number] [facility] [id number] TSH 1.970 {uIU/mL} (Normal) Range: 0.450-4.500 5-Nun-251711:36 T4, FREE (THYROXINE) (73159) Comments: PATIENT WAS FASTINGPERFORMED BY: LabMclaren Thumb Region[address] [place] [address] [id number] T4,Free(Direct) 1.29 ng/dL (Normal) Range: 0.82-1.77 4-Ymq-667990:36 T3, FREE (TRIDOTHYRONINE) (87847) Comments: PATIENT WAS FASTINGPERFORMED BY: LabCoSt. Lawrence Rehabilitation CenterIoqpoj2180 [facility] [id number] Triiodothyronine,Free,Serum 3.1 pg/mL (Normal) Range: 2.0-4.4 64-Uhz-511684:37 NuSwab Vaginitis Plus Comments: PATIENT NOT FASTINGPERFORMED BY: Lab[address] [id number] Information: SRC:VA (trich/BV/GC/lillie W/O Herpes) (02389) Neisseria gonorrhoeae, Negative (Normal) STEPHANIE Chlamydia trachomatis, Negative (Normal) STEPHANIE Trich vag by STEPHANIE Negative (Normal) Felicitas glabrata, STEPHANIE Negative (Normal) Comments: This test was developed and its performance characteristics determinedby [employer]. It has not been cleared or approved [...] was developed and its performance characteristicsdetermined by [employer]. It has not been cleared or approvedby the Food and Drug Administration. The FDA has determinedthat such clearance or approval is not necessary. BVAB 2 Low - 0 {Score} (Normal) Atopobium vaginae Low - 0 {Score} (Normal) 58-Xvs-110759:26 CALCIFIDIOL (81833) VIT D 25 Comments: PATIENT NOT FASTINGPERFORMED BY: LabCoSt. Lawrence Rehabilitation CenterJmurav8368 [facility] [id number] Vitamin D, 25-Hydroxy 69.9 ng/mL (Normal) Range: 30.0-100.0 Comments: Vitamin D deficiency has been defined by the Barnard ofMedicine and an Endocrine Society practice guideline as alevel of serum 25-OH vitamin D less than 20 ng/mL (1,2).The Endocrine Society went on to further define vitamin Dinsufficiency as a level between 21 and 29 ng/mL (2).1. IOM (Barnard of Medicine). 2010. Dietary reference intakes for calcium and D. [place]: The National Academies Press.2. Jadon MF, Abimael CHAWLA, Susan SANCHES, et al. Evaluation, treatment, and prevention of vitamin D deficiency: an Endocrine Society clinical practice guideline. JCEM. 2010; 96(7):1911-30. :38 Thin prep Pap Comments: Source.............Cervix;EndocervixNo. of containers..01 CYTYC Thin Prep VialPATIENT NOT FASTINGPERFORMED BY: =G [facility] Dpwbjysdjy469 [address] PlazaBeegitrleston [place] [id number] BY: Social[employer] (97885) (no STD rp Orrlmrtvzr514 [address] PlazaBrooks Hospitalrlespse&g [facility] [place] [id number] Information: [id number] testing) Age Gdln ACOG Testing AGE5 (Normal) Comments: <21 or >65 or no age provided :38 Pap IG (Image Comments: Source.............Cervix;EndocervixNo. of containers..01 CYTYC Thin Prep VialPATIENT NOT FASTINGPERFORMED BY: =G [facility] Bibweazwql192 [address] PlazaBeegitrleston [place] [id number] BY: WB [facility] Guided) Jhqwgfeass295 Parchman PlazaYulisarlespse&g [facility] [place] [id number] Note: PAPSMR (Normal) Comments: The Pap smear [...] guished in c ases of atrophy.Z00.01Ashley Delgado, Ordnance Engineering Technician (ASCP) :37 CBC W/Diff, Automated Comments: [facility] Frpc[address]tioby[address] [place], [place], [id number] Absolute Lymph 1.88 {X10_3/ul} (Normal) Range: 0.83-4.51 [...] Patient Taking Vitamins or Folic Acid Supplements? [facility] Rtztvutgjy[address] [place], [address] GAP 11 (Normal) Range: 5-15 [...] Patient Taking Vitamins or Folic Acid Supplements? [facility] Cgkidmzhwh4629 [place], [address] FOLATES 19.70 ng/mL (Abnormal) Range: 3.1-17.5 :37 Free T3 Comments: Is Patient Taking Vitamins or Folic Acid Supplements? [facility] Bhpjlkgckj49[address] [place], [address] FREE T3 3.8 pg/mL (Normal) Range: 2.18-3.98 :37 Lipid Profile Comments: Is Patient Taking Vitamins or Folic Acid Supplements? [facility] Iqynryffhx9[address] [place], [id number] VLDL 11 mg/dL (Normal) Range: 5-40 LDL [...] High Risk :37 Microalb:Creat Ratio,Random UR Comments: [facility] [address], [address] MALB:CREAT 5.3 {mg/g_CRE} (Normal) MICROALBUMIN,UR 6.6 mg/L (Normal) UR CREAT 124.00 mg/dL (Normal) :37 T4 Free Direct Comments: Is Patient Taking Vitamins or Folic Acid Supplements? [facility] Davlgyyvcb09[address] [place], [id number] T4 FREE DIRECT 0.93 ng/dL (Normal) Range: 0.76-1.46 :37 Thyroid Stim Hormone (TSH) Comments: Is Patient Taking Vitamins or Folic Acid Supplements? [facility] Vvdxhcbpvi07[address] [place], [address] TSH 5.81 {uIU/mL} (Abnormal) Range: 0.358-3.74 :37 Vitamin B12 720 pg/mL (Normal) Comments: [facility] F[address] [place], [id number] Range: 211-911 :14 CBC W/Diff, Automated Comments: [facility] Yepnwcrxfd0504 [address] [place], [id number] Absolute Lymph 3.44 {X10_3/ul} (Normal) Range: 0.83-4.51 [...] Patient Taking Vitamins or Folic Acid Supplements? [facility] Ejbwimyzlq84[address] [place], [id number] GAP 10 (Normal) Range: 5-15 CO2 25.0 [...] Patient Taking Vitamins or Folic Acid Supplements? [facility] Wddwhpnzyv4530 [place], [address] FOLATES 43.60 ng/mL (Abnormal) Range: 3.1-17.5 :14 Free T3 Comments: PLEASE ADD FOLATES TO BLOOD FROM THIS MORNINGIs Patient Taking Vitamins or Folic Acid Supplements? [facility] Ukqlkjboqd7535 [place], [address] FREE T3 2.8 pg/mL (Normal) Range: 2.18-3.98 :14 Hemoglobin A1c Comments: [facility] [address]cm[address]plvo[address] [place], [address] HGB A1C 5.6 % (Normal) Range: 4.2-6.3 :14 Lipid Profile Comments: PLEASE ADD FOLATES TO BLOOD FROM THIS MORNINGIs Patient Taking Vitamins or Folic Acid Supplements? [facility] Zerikqtqjm[address] [place], [address] VLDL 30 mg/dL (Normal) Range: 5-40 [...] High Risk :14 Microalb:Creat Ratio,Random UR Comments: [facility] [address]bltvci7[address] [place], [address] MALB:CREAT 4.8 {mg/g_CRE} (Normal) MICROALBUMIN,UR 9.6 mg/L (Normal) UR CREAT 202.00 mg/dL (Normal) :14 T3 Total - Triiodothyronine Comments: [facility] Taqhlzhqrp[address] [place], [address] T3 Total 1.33 ng/mL (Normal) Range: 0.6-1.81 :14 T4 Free Direct Comments: PLEASE ADD FOLATES TO BLOOD FROM THIS MORNINGIs Patient Taking Vitamins or Folic Acid Supplements? [facility] Ihhcoldjeb75[address] [place], [id number] T4 FREE DIRECT 0.95 ng/dL (Normal) Range: 0.76-1.46 :14 T4 Total, Thyroxin Comments: PLEASE ADD FOLATES TO BLOOD FROM THIS MORNINGIs Patient Taking Vitamins or Folic Acid Supplements? [facility] Qzuenkkbis[address] [place], [address] T4 THYROXIN 8.4 ug/dL (Normal) Range: 4.8-13.9 :14 Thyroid Peroxidase AB Comments: [facility] (refer to report for specific site)refer to report for address and phone number TPO AB 5922 13 {IU/mL} (Normal) Range: 0-34 Comments: Performed at: [address] [id number] Director: Tonio Bose PhD, Phone: [phone] :14 Thyroid Stim Hormone (TSH) Comments: PLEASE ADD FOLATES TO BLOOD FROM THIS MORNINGIs Patient Taking Vitamins or Folic Acid Supplements? [facility] [address]oxtecpwz[address] [place], [id number] TSH 9.32 {uIU/mL} (Abnormal) Range: 0.358-3.74 :14 Vitamin B12 1240 pg/mL (Abnormal) Comments: [facility] Cblnajgvet9852 [facility] [address]. [place], [id number] Range: 211-911 :14 Vitamin D,25 Hydroxy Comments: [facility] Hiutmxydor[address] [place], [id number] Vitamin D 25-OH 33.8 ng/mL (Normal) Comments: Vitamin D 25(OH) Status Range Deficiency <20 ng/mL (50nmol/L) Insuffciency 20 - 30 ng/mL (50 - 75 nmol/L) Sufficiency 30 - 100 ng/mL (75 - 250 nmol/L) Toxicity >100 ng/mL (>250 nmol/L) :25 Sputum Culture (19655) Comments: PATIENT NOT FASTINGPERFORMED BY: [facility] Pbpcew6708 [facility] [id number] Information: [id number] Result 1 RRF (Normal) Comments: Routine respiratory tomas Lower Respiratory Culture Final report (Normal) 0-Aev-040173:37 CULTURE, SPUTUM (73487) Comments: PATIENT NOT FASTINGPERFORMED BY: [facility] Gmdmxa6830 [facility] [id number] Information: SRC:[facility] [id number] Result 1 RRF (Normal) Comments: Routine respiratory tomas Lower Respiratory Culture Final report (Normal) :26 CBC W/Diff, Automated Comments: Test performed at:[facility] [id number] [place] [address] Absolute Lymph 1.93 {X10_3/ul} (Normal) [...] :26 Comprehensive Metabolic Profil Comments: Test performed at:[facility] In[address] [place], [place] [id number] GAP 10 (Normal) Range: 5-15 CO2 23.0 [...] 70-110 :26 Lipid Profile Comments: Test performed at:[facility] Jhdngfuxky[address] [facility] [address]. [place], [place] [id number] VLDL 16 mg/dL (Normal) Range: 5-40 LDL [...] 200-240 mg/dL Borderline >240 mg/dL High Risk 17-Yag-25035:26 Urinalysis, Complete Comments: How was Urine Obtained? CLEAN CATCHTest performed at:[facility] J[address]sv[address] [place] [address] MUCUS, URINE 0 SEEN {/hpf} (Normal) BACTERIA [...] Cloudy (Normal) COLOR Yellow (Normal) 14-Jun-20149:08 URINALYSIS (61241) Comments: PATIENT WAS FASTINGPERFORMED BY: [facility]6[address] [facility] [id number] Microscopic Examination MICNIP (Normal) Comments: Microscopic not indicated and not performed. Nitrite, Urine Negative (Normal) Urobilinogen,Semi-Qn 0.2 mg/dL (Normal) Range: 0.0-1.9 Bilirubin Negative (Normal) Occult Blood Negative (Normal) Ketones Negative (Normal) Glucose Negative (Normal) Protein Negative (Normal) WBC Esterase Negative (Normal) Appearance Clear (Normal) Urine-Color Yellow (Normal) pH 6.0 (Normal) Range: 5.0-7.5 Specific [facility] 1.027 (Normal) Range: 1.005-1.030 :08 MICROALBUMIN: CREATININE RATIO Comments: PATIENT WAS FASTINGPERFORMED BY: JANZZ [id number] [facility] [id number] (46771) AND (24448) Microalb/Creat Ratio 3.6 {mg/g_creat} (Normal) Range: 0.0-30.0 Microalbumin, Urine 6.0 ug/mL (Normal) Range: 0.0-17.0 Creatinine, Urine 168.1 mg/dL (Normal) Range: 15.0-278.0 :08 TSH ([id number]) Comments: PATIENT WAS FASTINGPERFORMED BY: JANZZ [id number] [facility] [id number] TSH 4.310 {uIU/mL} (Normal) Range: 0.450-4.500 :08 CBC, Platelets & Auto Diff Comments: PATIENT WAS FASTINGPERFORMED BY: [facility]ZZSt. [facility] CenterIqnpno[facility]8 [facility] [id number] Information: [id number] ([id number]) Immature Grans (Abs) 0.0 {x10E3/uL} (Normal) Range: [...] Comprehensive Comments: PATIENT WAS FASTINGPERFORMED BY: [facility] Mweqat7523 [facility] [id number] (32735) ALT (SGPT) 19 [iU]/L (Normal) Range: 0-32 [...] mg/dL (Normal) Range: 65-99 :08 Lipid Panel (31949) Comments: PATIENT WAS FASTINGPERFORMED BY: [facility] Twwacs0850 Dianne Mendoza [place] [id number] LDL/HDL Ratio 1.9 {ratio_units} (Normal) Range: 0.0-3.2 [...] Cholesterol, Total 165 mg/dL (Normal) Range: 100-199 12-Syw-19251:19 CBCMD RBCM NORM C+C {NORMAL} (Normal) PE [...] mg/dL Borderline >240 mg/dL High Risk :19 [facility] UMUC 0 SEEN {/hpf} (Normal) UBAC 0 [...] 45 63 >63Performed at: [facility] [address] [place], [place] [id number] Director: Fany Martinez PhD, Phone: [phone] INSULIN RES SC . (Normal) INS RES/DIAB [...] CHOL 162 mg/dL (Normal) Comments: <200 mg/dL Ieynuikgj996-518 mg/dL Borderline>240 mg/dL High Risk HDL 57 [...] 47-70 WBC 9.2 K/mm3 (Normal) Range: 4.4-11.0 55-Tae-32749:12 COMP METABOLIC A/G 1.1 {RATIO} (Normal) Range: [...] mg/dL VLDL 14 mg/dL (Normal) Range: 5-40 17-Wyy-840133:00 LQD PAP [id number] Comments: CYTOLOGY INFORMATION:- CLINICAL INFORMATION: - DATE LMP/MENOPAUSE: MENOPAUSE- COLLECTION VIAL: Thin Prep Vial- CARRIAGE FEEDER SOURCE: CERVICAL/ENDOCERVICAL- COLLECTION TECHNIQUE: BRUSH/SPATULA ADEQ Comment [...] no HPV testing was performed. .Performed At: [facility] [id number] [place] [id number] PAPSMR Comment (Normal) Comments: The Pap smear is a screening test designed to aid in thedetection of premalignant and malignant conditions of theuterine cervix. It is not a diagnostic procedure andshould not be used as the sole means of detecting cervicalcancer. Both false-positive and false-negative reports dooccur. . PERFORM Comment (Normal) Comments: Leda Zhao, Ordnance Engineering Technician (ASCP) Plan of Care Name Dates Details [...] with abnormal findings : *Well Female Maintenance ([facility]) Indication: Encounter for health maintenance examination [...] benign Planned Observations Culture, Aerobic, Bacterial ID ([id number])Indication: Vaginal odor On: 97-Vjx-809490:09 Request HPV automatic (50098)Indication: Screening for HPV (human papillomavirus) (Renamed from Encounter for screening for human papillomavirus (HPV)) On: 43-Aic-523962:09 Request T3, FREE (TRIDOTHYRONINE) (56342)Indication: Subclinical hypothyroidism On: 59-Eps-953834:47 Request T4, FREE (THYROXINE) (32217)Indication: Subclinical hypothyroidism On: 26-Ggi-302593:47 Request TSH (THYROID STIMULATING HORMONE) (31026)Indication: Subclinical hypothyroidism On: 74-Ngn-902040:46 Request T4, FREE (THYROXINE) (11472)Indication: Subclinical hypothyroidism On: 17-Lnd-074250:04 Request T3, FREE (TRIDOTHYRONINE) (09758)Indication: Subclinical hypothyroidism On: 95-Fsl-565521:04 Request MICROALBUMIN: CREATININE RATIO (40293) AND (95643)Indication: Hypertension, benign On: 34-Pue-292477:11 Request VITAMIN B12 AND FOLATES (43348)Indication: Hypertension, benign On: : Request CALCIFEDIOL (89476)Indication: Hypertension, benign On: Request TSH (THYROID STIMULATING HORMONE) (12526)Indication: Subclinical hypothyroidism On: : Request METABOLIC PANEL, COMPREHENSIVE (28312)Indication: Hypertension, benign On: : Request LIPID PANEL (70348)Indication: Hypertension, benign On: Request CBC, PLATELETS & AUT DIFF (71183)Indication: Hypertension, benign On: Request Anti-TPO Antibody (42318)Indication: Abnormal TSH On: Request T4, FREE (THYROXINE) (96333)Indication: Abnormal TSH On: Request T3, FREE (TRIDOTHYRONINE) (65913)Indication: Abnormal TSH On: : Request MICROALBUMIN: CREATININE RATIO (84051) AND (51011)Indication: Hypertension, benign On: Request HGB A1C (00215)Indication: Hypertension, benign On: Request VITAMIN B12 AND FOLATES (49001)Indication: Hypertension, benign On: Request CALCIFEDIOL (18504)Indication: Hypertension, benign On: Request TSH (THYROID STIMULATING HORMONE) (44106)Indication: Hypertension, benign On: Request LIPID PANEL (72629)Indication: Hypertension, benign On: 34 Request METABOLIC PANEL, COMPREHENSIVE (87296)Indication: Hypertension, benign On: :33 Request CBC, PLATELETS & AUT DIFF (15151)Indication: Hypertension, benign On: Request URINALYSIS, W/ MICRO (19473)Indication: Hypertension, benign On: :14 Request METABOLIC PANEL, COMPREHENSIVE (12230)Indication: Hypertension, benign On: :14 Request LIPID PANEL (28966)Indication: Hypertension, benign On: :14 Request CBC W/AUTO DIFF WBC (92240)Indication: Hypertension, benign On: 2-Pgs-620611:14 Request URINALYSIS, W/ MICRO (79172)Indication: Hypertension, benign On: :51 Request METABOLIC PANEL, COMPREHENSIVE (02431)Indication: Hypertension, benign On: 27-Lfc-063049:51 Request LIPID PANEL (80520)Indication: Hypertension, benign On: :51 Request CBC WITH MANUAL DIFF (06259)Indication: Hypertension, benign On: :51 Request URINALYSIS, W/ MICRO (90251)Indication: Hypertension, benign On: :48 Request METABOLIC PANEL, COMPREHENSIVE (54157)Indication: Hypertension, benign On: :48 Request CBC WITH MANUAL DIFF (54973)Indication: Hypertension, benign On: :48 Request LIPOPROTEIN, BLD, BY NMR (58877)Indication: Hypertension, benign On: :48 Request URINALYSIS, W/ MICRO (91628)Indication: Hypertension, benign On: 10-Epj-404045:08 Request METABOLIC PANEL, COMPREHENSIVE (55632)Indication: Hypertension, benign On: 17-Mie-231307:08 Request LIPID PANEL (34796)Indication: Hypertension, benign On: :08 Request CBC WITH MANUAL DIFF (32485)Indication: Hypertension, benign On: :08 Request URINALYSIS W/O MICRO (26817)Indication: Hypertension, benign On: 50-Ktm-629112:00 Request METABOLIC PANEL, COMPREHENSIVE (91413)Indication: Hypertension, benign On: 42-Zoq-936873:00 Request LIPID PANEL (58982)Indication: Hypertension, benign On: 90-Unp-988916:00 Request CBC WITH MANUAL DIFF (90395)Indication: Hypertension, benign On: 57-Vjf-659581:00 Request CBC (Auto) (96809)Indication: Hypertension, benign On: :51 Request Metabolic Panel, Comprehensive (53200)Indication: Hypertension, benign On: :51 Request Lipid Panel (20876)Indication: Hypertension, benign On: :51 Request Planned Procedures Wax Currettes (47168)By: Sharona On: 04-Jul-2018 Intent Nikky CARRASQUILLO DO, Kathleen Ear Irrigation (05367)By: Sharona On: 04-Jul-2018 Intent Nikky CARRASQUILLO DO, Kathleen Comments: R- full of cerumencopious amt of ceruemnt revomed - currettes used Aerosol Treatment (60001)By: Asuncion On: 14-Jun-2018 Intent [employer] 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 MEMBER, Kasie Flu Vaccine (Quadrivalent) On: 19-May-2018 Intent 55381Yi: Nikky Tabor DO Comments: Lot #[id number]/30/19Site-L dltd, IMDose prefilled syringegiven by: Al VARGAS reviewed and ABN signed Nikky Tabor DO ELECTROCARDIOGRAM, COMPLETE (ECG) On: 16-Nov-2017 Intent (48654)By: Nikky Tabor DO Comments: nsr no acute chg Nikky Tabor DO DEXA SCAN AXIAL SKELETON On: 10-Nov-2017 Intent (67932)By: Nikky Tabor DO Comments: due after 08/20/18 Nikky Tabor DO SCREENING DIGITAL TOMOSYNTHESIS OF On: 10-Nov-2017 Intent BREAST (37974)By: Nikky Tabor DO, DO, Kathleen Flu Vaccine (Quadrivalent) On: 08-Jul-2017 Intent 95589Rf: Visit, Nurse Comments: Lot #:[id number] date:02/21/18Amount given:0.5mlRoute: IMSite given: left deltoidGiven by: JAKOB Castellanos VAC ADLT/IMUMNOSPR, On: 02-Nov-2016 Intent SBC/INTRM (57069)By: Sharona CARRASQUILLO, Comments: Lot:[id number]:01/23/18Dose:0.5mg Route:im Site:r armGiven By:MIA signed Nikky Tellez DO Pelvic and Breast, Medicare On: 02-Nov-2016 Intent (G0101)By: Nikky Tabor DO, DO, Kathleen Aerosol Treatment (70777)By: Yoanna On: 08-Sep-2016 Intent MD, Onofre Solu -Medrol Injection, 125 mg On: 19-May-2016 Intent (J2930)By: Onofre Lenz MD Comments: [id number] hip, ImMLONG Flu Vaccine (Quadrivalent) On: 19-May-2016 Intent 15725Sy: Onofre Lenz MD Comments: FLUlot: [id number]:03/05/17site:Lt deltoidroute:IMdose:.5mlJAKOB HO Bone Density StudyBy: Yoanna NEELY, On: 19-May-2016 Intent Onofre MAMMOGRAM, SCREENING, BOTH BREAST On: 19-May-2016 Intent (22685)By: Onofre Lenz MD Comments: due after 08/20/16 Aerosol Treatment (67975)By: Asuncion On: 09-Dec-2015 Intent Samantha PATRICIA Nuclear Medicine - HIDA w/CPKBy: On: 31-Oct-2015 Intent Felisha Solorzano MD Comments: if us negative of GB Ultrasound - GallbladderBy: On: 31-Oct-2015 Intent Felisha Solorzano MD PNEUM VAC ADLT/IMUMNOSPR, On: 31-Oct-2015 Intent SBC/INTRM (33315)By: Felisha Solorzano MD Flu Vaccine (Quadrivalent) On: 31-Oct-2015 Intent 28023Ys: Felisha Solorzano MD Comments: Lot #:[id number] date:Amount given:0.5mlRoute: IMSite given:L DltdGiven by:VIS and ABN signed Quad Flu Solu -Medrol Injection, 125 mg On: 23-Apr-2015 Intent (J2930)By: Felisha Solorzano MD Solu -Medrol Injection, 125 mg On: 18-Mar-2015 Intent (J2930)By: Catherine Noel DO Comments: lot:[id number]:route:IMdose:125MGsite: R glutGiven by: BELLE Teague Spirometry (06238)By: Jeanine NEELY, On: 07-Feb-2015 Intent Felisha Owusu Comments: see scanned document of test done to see results reviewed today with patient Radiology - ChestBy: Jeanine NEELY, On: 07-Feb-2015 Intent Felisha Owusu Inhaler Demonstration (86715)By: On: 01-Feb-2015 Intent Samantha Roland CNP Aerosol Treatment (67446)By: Derik On: 01-Feb-2015 Intent Ashley DOUGLASS TDAP VACCINE >7 IM (99381)By: On: 10-Jul-2014 Intent Felisha Solorzano MD Comments: 7535x2.15.15prefilled syringeL Dltd, IMAS, LPNABN and VIS signed IMMUNIZ ADMNIN, 1 VAC, SNGL/COMBO On: 14-Jun-2014 Intent (91002)By: Visit, Nurse FLU VAC, SPLIT, >3 YEARS, On: 14-Jun-2014 Intent INTRAMUSC (28691)By: Visit, Nurse Comments: Lot:[id number]/22Amt:0.5mlRoute:IMSite: L DltdGiven By: Cassi COOPER signed IMMUNIZ ADMNIN, 1 VAC, SNGL/COMBO On: 21-Jun-2012 Intent (24248)By: June Robertson LPN Comments: Lot #[id number]-L dltd, IMDose prefilled syringegiven by:HAYLEE signed FLU VAC, SPLIT, >3 YEARS, On: 21-Jun-2012 Intent INTRAMUSC (95915)By: June Robertson LPN EKG (10203)By: Felisha Solorzano MD On: 16-Jun-2011 Intent FLU VAC, SPLIT, >3 YEARS, On: 16-Jun-2011 Intent INTRAMUSC (74066)By: Marcelo DOUGLASS, Comments: Lot #[id number]-L arm, IMDose prefilled given by:June Hanson IMMUNIZ ADMNIN, 1 VAC, SNGL/COMBO On: 16-Jun-2011 Intent (10988)By: June Robertson LPN EKG (90287)By: Felisha Solorzano MD On: 02-May-2010 Intent Holter Monitor 24 hrsBy: Jeanine On: 02-May-2010 Intent Felisha NEELY Echo CompleteBy: Felisha Solorzano MD On: 02-May-2010 Intent M Solu -Medrol Injection, 125 mg On: 27-Jan-2010 Intent (J2930)By: Felisha Solorzano MD EKG (05179)By: Felisha Solorzano MD On: 23-Sep-2009 Intent TDAP VACCINE >7 IM (95956)By: On: 20-Sep-2009 Intent Felisha Solorzano MD Comments: Lot #: [id number] date: mount given: 0.5 mlRoute: IMSite given: right deltoidGiven by: Zohra Bundy RN EKG (46233)By: Felisha Solorzano MD On: 19-Jul-2008 Intent FLU VAC, SPLIT, >3 YEARS, On: 04-Jul-2007 Intent INTRAMUSC (04101)By: ZEINAB Camacho IMMUNIZ ADMNIN, 1 VAC, SNGL/COMBO On: 04-Jul-2007 Intent (11943)By: ZEINAB Camacho Comments: Lot #:[id number] Expiration date:ount given:.5ml Route: IMSite given:right deltoid Given by: keyon TD Injection , IM (73569)By: On: 31-Dec-2006 Intent Felisha Solorzano MD EKG (69502)By: Felisha Solorzano MD On: 31-Dec-2006 Intent Venous [...] The patient does have durable power of transactional attorney and living will. The patient has noticed nothing from the geriatic depressi on scale. Other providers contributing to the patient's care are tube coater.Encounter Diagnosis: BMI 27.0-27.9,adult, Nonsmoker, Encounter for annual [...] The patient does have durable power of transactional attorney and living will. The patient has noticed nothing from the geriatic depressio n scale. Other providers contributing to the patient's care are tube coater., [ADDITIONAL REASON] Follow up for chronic medical [...] The patient does have durable power of transactional attorney and living will. The patient has [...] PERSONAL, MALIGNANCY, SKIN MELANOMA (V10.82), WWV V73.21 [facility] Comprehensive Internal Medicine Phone Encounter [...] (530.81), MALIGNANT MELANOMA, NOS, Other lymphedema (457.1), [facility] Office Visit On: 19-Jul-2008 [...] NOS, Other lymphedema (457.1), Acute bronchitis (466.0), [facility], Hemorrhoids (455.8), Allergic Rhinitis(477.9) Comprehensive Internal [...] Headache (784.0), Hemorrhoids (455.8), Other lymphedema (457.1), [facility] Refill Request On: 09-Feb-2007 14:46 [...] pain (786.59), Other lymphedema (457.1), Gerd (530.81), [facility] Historical Summary On: 31-Dec-2006 9:10 Comprehensive Internal Medicine End: 31-Dec-2006 9:16 Payers MedicareAnthem/Jasmeet cummins guarantor
--- OUTSIDE RECORDS SUMMARY | 2018-11-24 17:18 | XMS RPT_ITS ---
:1950 Author Organization [place] Care Team Providers Name Role Phone Sharona CARRASQUILLO Nikky Attending Unavailable Onofre Lenz MD Referring Unavailable Sharona DONikky Consulting Unavailable Sharona, Nikky Attending Unavailable Sharona, Nikky Primary Care Unavailable Sharona, Nikky Attending Unavailable Sharona, Nikky Primary Care Unavailable Elliott, Madi Attending Unavailable Sharona, Nikky Referring Unavailable Sharona, Nikky Primary Care Unavailable Elliott, Madi Attending Unavailable Petros, Madi Referring Unavailable Sharona, Nikky Primary Care Unavailable Elliott, Madi Attending Unavailable Sharona, Nikky Referring Unavailable Sharona, Nikky Primary Care Unavailable Petros, Madi Attending Unavailable Purpose Purpose PROBLEMS PROBLEMS DATE TYPE CONDITION / CODE ATTENDING STATUS SOURCE 08/23/2018 Unknown Z12.31 - Encounter Sharona, Active [facility] for screening [facility] mammogram for Hospital malignant neoplasm Repository of breast / Z12.31(ICD-10) 08/23/2018 Unknown Z78.0 - Sharona, Active [facility] Asymptomatic [facility] menopausal state / Hospital Z78.0(ICD-10) Repository 12/13/2017 Unknown K20.0 - Madi Morrell Active [facility] Eosinophilic Community esophagitis / Hospital K20.0(ICD-10) Repository 12/13/2017 Unknown Z12.11 - Encounter Madi Morrell Active [facility] for screening for Community malignant neoplasm [facility] / Repository Z12.11(ICD-10) PROCEDURES PROCEDURES No Procedure Records FoundVITAL SIGNS VITAL SIGNS No Vital Signs Records FoundRESULTS RESULTS DEXA BONE DENSITY Observed: 08/23/2018 Status: F Source: KALI STUDY 10:08 AM [facility] REPOSITORY [facility] Imaging Services [address] [place] [address] Dexa Bone Density Study MR#: [id number] Acct: [id number] Name: JAKY BRUSH Rep #: [id number] : 1950 F 67 From: Sergio Yang MD PCP: Nikky Tabor DO Status: REG CLI Study: Dexa Bone Density Study Date of Exam: 08/23/18 Exam# [id number] Ordering Dr: Nikky Tabor DO STUDY: DUAL ENERGY X-RAY ABSORPTIOMETRY / DXA REASON FOR EXAM: Female, 67 years old. The patient is postmenopausal. No loss of height. TECHNIQUE: Bone Mineral Density (BMD) measurements of lumbar spine and bilateral hips were obtained. COMPARISON: Comparison is made with prior study dated August 20, 2016. FINDINGS: Lumbar Spine (L1-L4): g/cm2 (1.062) / T-score (-0.9) / Z-score (0.7) Findings are suggestive of normal bone density with a low fracture risk. Left Femur Total: g/cm2 (0.936) / T-score (-0.6) / Z- score (0.8) Left Femoral Neck: g/cm2 (0.890) / T-score (-1.1) / Z- score (0.6) Right Femur Total: g/cm2 (0.974) / T-score (-0.3) / Z- score (1.1) Right Femoral Neck: g/cm2 (0.854) / T-score (-1.3) / Z-score (0.3) The T-Scores on the most recent prior examination were: Lumbar Spine (L1-L4): There has been worsening of bone density since the previous examination. Left Femur Total: which represents a worsening of 1.2%. Right Femur Total: which represents a worsening of 1.2%. BD/Dexa Bone Density Study IMPRESSION: The patient is considered osteopenic as outlined below according to World Carroll Organization (WHO) criteria with a low fracture risk. There has been worsening of bone density since the previous examination. Reference Information: The T-score is the number of standard deviations above or below the standard which is normal for young adults at their peak bone mineral density. The World Health Organization (WHO) interprets the T-scores as follows: Above -1 Normal bone density Between -1 and -2.5 Osteopenia Equal to / or below -2.5 Osteoporosis As a practical clinical guideline, osteopenia may be graded as follows: Mild -1 through -1.5 Moderate -1.6 through -2.0 Severe -2.1 through -2.4 The Z-score is the number of standard deviations above or below age-matched controls. A Z-score of less than -1.5 would be considered abnormal. References: 1. NIH Osteoporosis and Related Bone Diseases http://www.osteo.org 2. International Society for Clinical Densitometry http://www.iscd.org 3. National Osteoporosis Foundation http://www.nof.org Electronically Signed: Sergio Yang MD at 14:18 EST Tel [phone], Service support , CC: Nikky Tabor DO Dye Penetrant Testing Technician: Signed OPERATIVE REPORT Observed: 12/10/2017 Status: F Source: KALI 9:40 AM [facility] REPOSITORY [facility] Medical Records Department [address] [place] [address] Operative Report 11/29/17 0905 MR#: [id number] Acct: [id number] Name: JAKY BRUSH Rep #: [id number] : 1950 66 From: Madi Morrell MD PCP: Nikky Tabor DO Status: [facility] Y Location: EN Problem List (1) Eosinophilic esophagitis Status: Acute (2) Colon cancer screening Status: Acute Report of Operation Date of Procedure: 11/29/17 Pre-Operative Diagnosis: k20.0 eosinophilic esophagitis. z12.11 encounter for screening colonoscopy Post-Operative Diagnosis: 4323 [place]ophagogast[place]. [address] colonoscopy Type of Anesthesia:: MAC Description of Procedure: Patient was brought into the endoscopy suite back of her throat was sprayed with Cetacaine spray. She was given a bite-block. She was placed in the left lateral decubitus position. She was given graded anesthesia. Scope was inserted in the back of the oropharynx and directed down through the esophagus into the stomach and into the duodenum without difficulty. Operative findings: 1. Duodenum: Normal appearance no mass lesions no ulcerations no signs of inflammation. Pylorus was completely patent. 2. Stomach: Multiple fundic gland polyps were identified a biopsy of 1 of these was obtained. Rest of the stomach looked normal there was no signs of esophagitis there is no signs of a hiatal hernia. 3. Esophagus: Normal appearance no mass lesions no signs of esophagitis no hiatal hernia Z line was at 39 cm. Colonoscope was inserted into the rectum. The scope was directed through the sigmoid colon, descending colon, transverse colon, ascending colon, to [...] Madi Morrell MD; Nikky Tabor DO Signed SURGERY VISIT REPORT Observed: 12/06/2017 Status: F Source: SUM[place] 8:54 AM [facility] [address] [place] [address] OFFICE VISIT Date of Service: 12/06/17 MR#: [id number] Acct: [id number] Name: JAKY BRUSH Rep #: [id number] : 1950 Provider: Madi Morrell MD Age/Sex: 66/F Location: [facility] Status: Signed Intake Intake Visit Reasons: F/U EGD AND C-SCOPE 11/29 2017 Chief Complaint: eosinophilic esophagitis--past due for EGD Escort Service Attendant Required: No Is patient in pain?: No Allergies No Known Allergies Allergy (Verified 12/06/17 08:34) Medications B-complex with vitamin C tablet 2 tab PO QDAY 11/16/17 [History Confirmed 12/06/17] calcium carbonate-vitamin D3 600 mg(1,500 mg)-400 unit chewable tablet 1 tab PO QDAY ea 11/16/17 [History Confirmed 12/06/17] glucosamine HCl 1,500 mg tablet 1,500 mg [...] melanoma (Acute) HTN (hypertension) (Chronic) Surgical History H/O section (Acute) H/O esophagogastroduodenoscopy (Acute 11/29/17) S/P colonoscopy (Acute 11/29/17) S/P laparoscopic cholecystectomy (Acute) Family History Mother No problems noted. Social History Smoking Status: Never smoker HPI HPI HPI: JAKY BRUSH, is a 66 F who presents to the office today for follow-up from both an upper and lower endoscopy completed on 11/29/2017. Patient's upper scope was remarkably clean she had a's fundic gland polyp in her stomach. Her Z line was at 39 cm and the mucosa all look normal. There is no signs of hiatal hernia. Her colonoscopy was entirely normal. Patient states that she is on 40 mg of Prilosec a day. He has complete symptom control when she is taking this and notices if she misses 2 or 3 days. Exam GI Other: Her abdomen is soft and nontender Assessment AND Plan Problems 1. Eosinophilic esophagitis K20.0 Plan At this point I think the patient will need to have another upper endoscopy in 3 years. I think it is probably rubio for us to keep an eye on her esophagus given the fact that she is on daily doses of Prilosec. Coding Level of Care Code Off vis,est,level 2 Diagnoses Eosinophilic esophagitis K20.0 12/06/17 0854 <Electronically signed by Madi Morrell MD> Date Madi Carter Signature: Date (if applicable) CC: Nikky Tabor DO GASTRIC BIOPSY Observed: 11/29/2017 Status: F Source: KALI 12:00 AM [facility] REPOSITORY Patient: JAKY BRUSH : 1950 (66/F) Acct Num: [id number] Phys: Petros NEELY,Madi Unit Num: [id number] Loc: EN Specimen: [id number] Received: 11/29/17 - 1143 Spec Type: Gastric Bx TISSUES TISSUES: Gastric mucous membrane COMMENT Immunohistochemistry for Helicobacter pylori can be performed if clinically indicated. Please notify the Laboratory if it is needed. GROSS DESCRIPTION Received in fixative is one container labeled with the patient's name and designated gastric polyp biopsy. The specimen consists of one irregular fragment of light miguel soft tissue that measures 0.4 x 0.3 x 0.1 cm. The specimen is totally submitted in one cassette. / RIGOBERTO:beba 11/29/17 TC:5 CPT: 76560 HEADER OPERATION: EGD with biopsy PRE-OP DIAGNOSIS: Eosinophilic esophagitis TISSUE SUBMITTED: Gastric polyp biopsy MICROSCOPIC DESCRIPTION Slides are reviewed. MICROSCOPIC DIAGNOSIS Gastric polyp, biopsy: Fundic gland polyp. See comment. SJ:beba [id number] Signed Shabbir Agustín 11/30/17 <signature on file> Performed By: #### PGASB #### [facility] [address] [place] [address]. [place], [address] SURGERY VISIT REPORT Observed: 11/16/2017 Status: F Source: [place] 10:01 AM [facility] REPOSITORY [facility] [address] [address] OFFICE VISIT Date of Service: 11/16/17 MR#: [id number] Acct: [id number] Name: JAKY BRUSH Rep #: [id number] : 1950 Provider: Madi Morrell MD Age/Sex: 66/F Location: [facility] Status: Signed Intake Vital Signs11/16/17 Height 5 ft 2.3 in 11/16/17 Weight: 150 lb 9 oz 11/16/17 Body Mass Index (BMI) 27.2 11/16/17 Blood Pressure 149/92 Intake Visit Reasons: Eosinophilic esophagitis and possible cscope Chief Complaint: eosinophilic esophagitis--past due for EGD Escort Service Attendant Required: No Is patient in pain?: No Allergies No Known Allergies Allergy (Verified 11/16/17 09:46) Medications B-complex with vitamin C tablet 2 tab PO QDAY 11/16/17 [History Confirmed 11/16/17] calcium carbonate-vitamin D3 600 mg(1,500 mg)-400 unit chewable tablet tab PO QDAY ea 11/16/17 [History Confirmed 11/16/17] glucosamine HCl 1,500 mg tablet 1,500 mg PO QDAY 11/16/17 [History Confirmed 11/16/17] omega-3 fatty acids 1,000 mg capsule 1,000 mg PO QDAY 11/16/17 [History Confirmed 11/16/17] omeprazole 40 mg capsule,delayed release 40 mg PO QDAY 11/16/17 [History Confirmed 11/16/17] verapamil ER 180 mg 24 hr capsule,extended release 180 mg PO QDAY 11/16/17 [History Confirmed 11/16/17] Is last menstrual period known: No Post menopausal: Yes Patient : No PFSH Medical History GERD (gastroesophageal reflux disease) (Acute) History of malignant melanoma (Acute) HTN (hypertension) (Chronic) Surgical History H/O section (Acute) H/O esophagogastroduodenoscopy (Acute) S/P colonoscopy (Acute) S/P laparoscopic cholecystectomy (Acute) Family History Mother No problems noted. Social History Smoking Status: Never smoker HPI HPI HPI: JAKY BRUSH, is a 66 F who presents to the office today for evaluation for both an upper and lower endoscopy. Patient has had an endoscopy in the past and she is not quite sure how long that she knows it has been more than 5 years where she had an upper scope with biopsies to show eosinophilic esophagitis. Since then she has been placed [...] for both an upper and lower scope. ROS General General: No weight change, appetite, fatigue, colon cancer, breast cancer or weakness Additional Details: history of malignant melanoma left scapula Endo Endocrine: No thyroid disease, diabetes mellitus, thyroid cancer, Hair loss, heat intolerance or cold intolerance Skin Skin: No rash or changing moles Breast Breast: No left breast lump, right breast lump, nipple discharge, breast pain, abnormal mammogram, abnormal US or breast enlargement Musc Musculoskeletal: No back problems, arthritis, rheumatoid arthritis, gout or joint pain Cardio Cardiovascular: Yes high blood pressure; no murmur, pacemaker, heart disease, atrial fibrillation, heart attack, heart stent, palpitations, shortness of breat with exertion or chest pain Psych Psychiatric: No depression, anxiety or hearing voices Resp Respiratory: No shortness of breath, No sleep apnea, No cough, No COPD, No asthma, No emphysema, No wheezing Gastro Gastrointestinal: No abdominal pain, No nausea or vomiting, No diarrhea, No constipation, No blood in stool, Yes acid reflux, [...] No lack of coordination, No loss of vision, No memory loss, No numbness, No other visual disturbances, No radiating pain, No restless legs, No sensory deficit, No fainting, No tingling, No tremor(s), No weakness, No other Exam Const General: well developed, no acute distress, well hydrated Orientation: oriented to person, oriented to place, oriented to time [facility] Head: normocephalic, atraumatic Ears: external ears normal Mouth: moist mucous membranes Eyes Sclera: sclerae normal Pupils: normal by confrontation Neck Neck: no lymphadenopathy noted Neck mass: No Thyroid: symmetrical, thyroid normal Chest Chest palpation AND inspection: normal inspection of the chest Breast Palpation: No nipple discharge Resp Effort AND Inspection: normal respiratory effort Auscultation: clear to auscultation bilaterally Percussion: percussion normal Cardio Rate: regular rate Rhythm: regular rhythm Heart Sounds: no murmurs GI Palpation: soft, no masses, no hepatosplenomegaly, nontender Rectal Exam: other Other: Rectal exam deferred. Extrem General: no clubbing, cyanosis or edema, normal to inspection Assessment AND Plan Problems 1. Eosinophilic esophagitis K20.0 2. Encounter for screening colonoscopy Z12.11 Plan I have discussed the above with the patient. I have offered the patient colonoscopy as well as an esophagogastroduodenoscopy with esophageal biopsies for evaluation. I have explained the risks/benefits of the procedure and described the procedure. I have discussed the risks with the patient, including but not limited to: infection, bleeding, perforation of the GI tract requiring emergency surgery, inability to complete the procedure, injury to any internal organs, complications of anesthesia, etc. - the patient understands and agrees to proceed. I have answered all the patient's questions to the patient's satisfaction and the patient has no further questions. The patient has been given instructions for the colon cleansing preparation. Coding Level of Care Code Off vis,new,level 3 Diagnoses Eosinophilic esophagitis K20.0 Encounter for screening colonoscopy Z12.11 11/16/17 1001 <Electronically signed by Madi Morrell MD> Date Madi Morrell MD Cosigner Signature: Date (if applicable) CC: Nikky Tabor DO SCREENING MAMM (CAD), Observed: 11/12/2017 Status: F Source: KALI LOYD 3:34 PM [facility] REPOSITORY [facility] Imaging Services [address] [place] [address] SCREENING MAMM (CAD), BILAT MR#: [id number] Acct: [id number] Name: JAKY BRUSH Rep #: [id number] : 1950 F 66 From: Sergio Yang MD PCP: Nikky Tabor DO Status: REG CLI Study: SCREENING MAMM (CAD), BILAT Date of Exam: 11/12/17 Exam# [id number] Ordering Dr: Nikky Tabor DO MAMMOGRAPHY - BILATERAL SCREENING REASON FOR EXAM: Female, 66 years old. Routine annual screening examination. PERTINENT HISTORY: Non-contributory. Prior left axillary node excision due to skin cancer. TECHNIQUE: Digital bilateral breast darcy (3D mammographic [...] suspicious calcifications. There is deformity of the axillary region of the left breast in keeping with the history of left axillary node dissection. Of the left axillary region No other significant abnormalities are identified. BI/SCREENING MAMM (CAD), BILAT IMPRESSION: Stable bilateral screening mammogram. Yearly follow-up mammogram recommended. (A) ASSESSMENT CATEGORY: BIRADS Category 2: Benign. A letter regarding these results will be sent to the patient by the facility within 30 days. Approximately 10% of breast cancers are not detected by mammography. A normal mammogram should not delay biopsy of a clinically suspicious abnormality. [id number] Electronically Signed: Sergio Yang MD at 8:12 EDT Tel [phone], Service support , CC: Nikky Tabor DO Dye Penetrant Testing Technician: Signed ALLERGIES ALLERGIES DATE TYPE / CODE NAME / CODE REACTION SEVERITY SOURCE 12/06/2017 Drug No Known Unknown [facility] Allergy/4160 Allergies/F00 Hospital 65670(SNOMED 9813914(RXNOR Repository CT) M) ENCOUNTERS ENCOUNTERS ADMIT/DISCHARGE ACCOUNT ADMITTING ENCOUNTER LOCATION SOURCE NUMBER CLASS 09/14/2018 [id number] Ambulatory Building:[facility] [place] Practices Repository 08/23/2018 [id number] Ambulatory [facility] [address] ing:OPBD Repository 12/06/2017/ [id number] Ambulatory BMSBuilding:B [facility] 8 8 [facility] Repository 11/29/2017/ [id number] Ambulatory [facility] 8 9 [facility] ing:EN Repository 11/29/2017 [id number] Ambulatory BMSBuilding:B [facility] 3 MS.CF.[facility] Repository 11/16/2017/ [id number] Ambulatory BMSBuilding:B [facility] 8 9 [facility] Repository 11/12/2017 [id number] Ambulatory [address] ing:BI Repository FUNCTIONAL STATUS FUNCTIONAL STATUS No Functional Status Records FoundEQUIPMENT EQUIPMENT No Equipment Records FoundPAYERS PAYERS ENCOUNTER GUARANTOR PAYER SUBSCRIBER SOURCE 09/14/2018 Jaky L Primary Jaky L OHIP Practices ShawDOB: Insurance:MedicarePoli ShawDOB: Repository [id number] cy Number: [id number] Solomon Perez [id number] 2 Solomon Bazan Date:1261-86-20Qeyp [place] [address]Dkk: Name:[facility] [place] [address]Frx: [id number], [place] ()Tel: [phone]: [phone]) (JD) [phone] 09/14/2018 Secondary Jaky L OHIP Practices Insurance:[place]/Suppl ShawDOB: Repository ementPolicy Number: [id number] [address] Date:8466-61-28Rhwv [facility] Name:[facility] [place] [address]Uue: [id number], [place] [address]TC: [phone] 09/14/2018 Tertiary Nikolai ShawDOB: OHIP Practices Insurance:Medical [id number] Repository [place] [address] Number: [place] [id number]: (330) Date:2003-08-05 () [id number] Name:[facility] [place] [address]Nr[place]tit, [place] [id number]: 09/14/2018 Tertiary Insurance:[facility] Nikolai ShawDOB: OHIP Practices [facility] [id number] Repository [facility] [address] Number: [place] [id number]: (330) Date:2007-09-06 () [id number] Name:[facility] [place] [address]MEDICAL CLAIMS DEPTMT. [place], [place] [address]RY: 08/23/2018 NIKOLAI Hanson Primary JAKY L [facility] [id number] E Insurance:MEDICARE SHAWDOB: Community [place] PART A BPolicy Number: [id number] [facility] [id number] [place]ository [place] [address]Elk: Date:2018-07-07 () 08/23/2018 Secondary JAKY L [facility] Insurance:ANTHEMPolicy SHAWDOB: [facility] Number: [id number] [facility] [id number] Repository Date:6328-35-85IM [place] [address]185[address]EKBYL[place], [place] [address]YT: 08/23/2018 Tertiary NOT GIVENUNK [facility] Insurance:SELF PAY [facility] Number: Effective Repository Date:2018-07-07 12/06/2017 NIKOLAI Hanson Primary JAKY L [facility] [id number] E Insurance:MEDICARE SHAWDOB: Community A[place] PART A BPolicy Number: [id number] [id number] Repository , [place] [address]Wvd: Date:2017-11-29 () 12/06/2017 Secondary JAKY L [facility] Insurance:ANTHEMPolicy SHAWDOB: Community Number: [id number] [facility] Hospital, [id number] Repository Date:8074-10-14[address] [place] [address]AK: 12/06/2017 Tertiary NOT GIVENUNK [facility] Insurance:SELF PAY [facility] Number: Effective Repository Date:2017-12-06 11/29/2017 NIKOLAI Hanson Primary JAKY L [facility] [id number] E Insurance:MEDICARE SHAWDOB: Community ANA PART A BPolicy Number: [id number] Peaks [facility] [id number] Repository , [place] [address]Flc: Date:2017-11-16 () 11/29/2017 Secondary JAKY L [facility] Insurance:ANTHEMPolicy SHAWDOB: Community Number: [id number] Regional Hospital, [id number] Repository Date:6122-54-83MD [address] [place] [address]PY: 11/29/2017 Tertiary NOT GIVENUNK [facility] Insurance:SELF PAY [facility] Number: Effective Repository Date:2017-11-16 11/29/2017 NIKOLAI Hanson Primary JAYK L [facility] [id number] E Insurance:MEDICARE SHAWDOB: Community ANA PART A BPolicy Number: [id number] Peaks Regional [facility] Center [id number] Repository [place], [place] [address]Csj: Date:2017-11-16 () 11/29/2017 Secondary JAKY L [facility] Insurance:ANTHEMPolicy SHAWDOB: Community Number: [id number] Hospital [id number] Repository Date:4541-96-40[id number] [place] [address]QZ: 11/29/2017 Tertiary NOT GIVENUNK [facility] Insurance:SELF PAY [facility] Number: Effective Repository Date:2017-11-29 11/16/2017 Nikolai L Primary JAKY L [facility] [id number] Insurance:MEDICARE SHAWDOB: Community [place] PART A BPolicy Number: [id number]. Anthony Hospital [id number] [place], [place] [address]Gij: Date:2017-11-15 () 11/16/2017 Secondary JAKY L [facility] Insurance:ANTHEMPolicy SHAWDOB: Community Number: [id number] Regional Hospital, [id number] Repository Date:7128-13-89[address] [place] [address]WF: 11/16/2017 Tertiary NOT GIVENUNK [facility] Insurance:SELF PAY [facility] Number: Effective Repository Date:2017-11-15 11/12/2017 Nikolai L Primary JAKY L [facility] [id number] Insurance:MEDICARE SHAWDOB: Community [place] PART A BPolicy Number: [id number]. Anthony Hospital [id number] [place], [place] [address]Exy: Date:2017-11-10 () 11/12/2017 Secondary JAKY L [facility] Insurance:ANTHEMPolicy SHAWDOB: Community Number: [id number] Regional Hospital, [id number] Repository Date:4159-04-25[address]QRGQS [place] [address]QA: 11/12/2017 Tertiary NOT GIVENUNK [facility] Insurance:SELF PAY [facility] Number: Effective Repository Date:2017-11-10 SOCIAL HISTORY SOCIAL HISTORY No Social History Records FoundFAMILY HISTORY FAMILY HISTORY No Family History Records FoundADVANCE DIRECTIVES ADVANCE DIRECTIVES No Advanced Directives Records FoundINFORMATION SOURCE INFORMATION SOURCE DATE CREATED AUTHOR AUTHOR'S ORGANIZATION 09/28/2018 [facility]
== END ==
PROVIDERS: Family Provider Internal Medicine; PCP Internal Medicine; Visit Provider Internal Medicine
DX: Z78.0 Asymptomatic menopausal state (principal); M85.80 Other specified disorders of bone density and structure, unspecified site
CPT/HCPCS: 77080

== ENCOUNTER → 2018-11-18 10:44 | Outpatient (CLI) | payer MEDICARE, BC, SELFPAY ==
--- NOTE | 2018-11-18 10:49 | BI_ITS ---
MAMMOGRAPHY - BILATERAL SCREENING REASON FOR EXAM: Female, 67 years old. Routine annual screening examination. PERTINENT HISTORY: Non-contributory. TECHNIQUE: Digital bilateral breast darcy (3D mammographic acquisition) in the CC and MLO projections. 2-D mediolateral oblique (MLO) and craniocaudad (CC) views of both breasts were obtained. CAD: Full Field Digital Mammography with Computer Added Detection was performed. COMPARISON: Comparison is made with prior study dated November 12, 2017 and August 20, 2016. FINDINGS: Breast Composition: The breasts are heterogeneously dense, which may obscure small masses. There are no dominant masses or suspicious calcifications. Stable small right axillary lymph nodes. Surgical changes once again seen in the left axillary region in keeping with the patient's history of lymph node resection. No other significant abnormalities are identified. There has been no significant change since the prior study. BI/SCREENING MAMM (CAD), BILAT IMPRESSION: Stable bilateral screening mammogram. Yearly follow-up mammogram recommended. (A) ASSESSMENT CATEGORY: BIRADS Category 2: Benign. A letter regarding these results will be sent to the patient by the facility within 30 days. Approximately 10% of breast cancers are not detected by mammography. A normal mammogram should not delay biopsy of a clinically suspicious abnormality. [id number] Electronically Signed: Sergio Yang, at 14:12 EDT , Service support ,
== END ==
PROVIDERS: Family Provider Internal Medicine; PCP Internal Medicine; Referring Provider Internal Medicine; Visit Provider Internal Medicine
DX: Z12.31 Encounter for screening mammogram for malignant neoplasm of breast (principal)
CPT/HCPCS: 77063; 77067

== ENCOUNTER → 2019-05-25 06:30 | Outpatient (CLI) | payer MEDICARE, BC, SELFPAY ==
--- NOTE | 2019-05-25 09:02 | STRESSREP_ITS ---
Stress Test Report Date: [May 25, 2019] Procedure: Exercise tolerance test/imaging study Indications: Abnormal EKG Consent: Per the patient Procedure: The patient exercised on a Tanner protocol for 2 minutes and 30 seconds achieving a peak heart rate of 141 bpm (93 % predicted maximal heart rate) with a peak blood pressure 190/80 mmHg and a peak MET capacity of 7.7 METs. The baseline ECG demonstrated normal sinus rhythm, poor R wave progression in the anterior leads. The peak exercise ECG demonstrated about [address] depressions in the inferior and lateral leads. No definite ischemic changes. EKG during recovery revealed no significant ischemic changes [There were no cardiac dysrhythmias pretest, during exercise, or recovery]. The functional capacity was considered average for age. There was [no complaint of chest discomfort during exercise or recovery]. The examination was discontinued secondary to dyspnea. Impression: 1. Technically adequate (percent predicted maximal heart rate greater than 85%) exercise tolerance test 2. Stress test is negative for exercise-induced EKG changes of ischemia 3. The test test is negative for exercise-induced chest pain 4. Functional capacity is average for age 5. Nuclear images pending Myocardial perfusion imaging study: Technique: The patient was injected with 11.7 mCi of technetium 99m Cardiolite and subsequently rest SPECT Cardiolite nuclear imaging was obtained in the horizontal long, vertical long, and short axis views. The patient exercised on a Tanner protocol. Please see above for details. The patient was injected with 33.9 mCi of technetium 99m Cardiolite and subsequently stress SPECT Cardiolite nuclear imaging was obtained in the horizontal long, vertical long, and short axis views. A gated Cardiolite study at peak stress was obtained. Interpretation: Rest and stress SPECT Cardiolite nuclear imaging status post realignment, no rmalization, and attenuation correction, demonstrates [normal myocardial radioisotope uptake]. The gated Cardiolite study demonstrates no significant regional wall motion abnormalities. The reported LVEF is 72 %. Impression: 1. There is no evidence of significant ischemia or infarction. 2. The gated Cardiolite study reports an LVEF of 72 %. This note was generated with [employer]ue [employer]ation software. It may contain incorrect words, spelling, and punctuation that were not noted in checking the note before signing.
== END ==
PROVIDERS: Family Provider Internal Medicine; PCP Internal Medicine; Referring Provider Internal Medicine; Visit Provider Internal Medicine
DX: R94.31 Abnormal electrocardiogram [ECG] [EKG] (principal); I10 Essential (primary) hypertension
CPT/HCPCS: 78452; 93017; A9500; A4216

== ENCOUNTER → 2019-11-21 13:18 | Outpatient (CLI) | payer MEDICARE, BC, SELFPAY ==
--- NOTE | 2019-11-21 13:21 | BI_ITS ---
MAMMOGRAPHY - BILATERAL SCREENING REASON FOR EXAM: Female, 68 years old. Routine annual screening examination. PERTINENT HISTORY: Non-contributory. TECHNIQUE: Digital bilateral breast darren (3D mammographic acquisition) in the CC and MLO projections. 2-D mediolateral oblique (MLO) and craniocaudad (CC) views of both breasts were obtained. CAD: Full Field Digital Mammography with Computer Added Detection was performed. COMPARISON: Comparison is made with prior examination dated November 18, 2018 and November 12, 2017. FINDINGS: Breast Composition: The breasts are heterogeneously dense, which may obscure small masses. There are no dominant masses or suspicious calcifications. Stable linear scar is seen in the axillary region of the left breast in keeping with the patient''s history of prior left axillary node removal. No other significant abnormalities are identified. There has been no significant change since the prior study. BI/SCREEN MAMM (CAD) W/DARREN BILAT IMPRESSION: Stable bilateral screening mammogram. Yearly follow-up mammogram recommended. (A) ASSESSMENT CATEGORY: BIRADS Category 2: Benign. A letter regarding these results will be sent to the patient by the facility within 30 days. Approximately 10% of breast cancers are not detected by mammography. A normal mammogram should not delay biopsy of a clinically suspicious abnormality. [id number] Electronically Signed: Sergio Yang, at 14:32 EDT , Service support ,
== END ==
PROVIDERS: PCP Internal Medicine; Referring Provider Internal Medicine; Visit Provider Internal Medicine
DX: Z12.31 Encounter for screening mammogram for malignant neoplasm of breast (principal); Z78.0 Asymptomatic menopausal state; Z68.27 Body mass index [BMI] 27.0-27.9, adult
CPT/HCPCS: 77063; 77067

== ENCOUNTER 2020-07-31 06:21 | Day surgery (SDC) | payer MEDICARE, BC, SELFPAY ==
[2020-07-15 08:13] VITALS: BMI 29.2
[2020-07-30 13:05] LABS: Probe Check PASS; Specimen Processing Control PASS
[2020-07-31 06:38] VITALS: BP 144/88; PULSE 70; RESP 16; TEMP 36.2; O2SAT 96; BMI 29.3
--- NOTE | 2020-07-31 07:00 | HP_ITS ---
Intake Vital Signs 07/15/20 Height 5 ft 2 in 07/15/20 Weight: 160 lb 07/15/20 BMI 29.2 07/15/20 BP 153/91 H 07/15/20 Blood Pressure Location Rt brachial 07/15/20 Position Sitting 07/15/20 Respiration 16 07/15/20 Pulse 68 07/15/20 Pulse Source Monitor 07/15/20 Temp 97.7 F L 07/15/20 Temp Source Temporal 07/15/20 Pulse Oximetry (%) 96 07/15/20 Oxygen Delivery Method room air Intake Visit Reasons: CSCOPE/ POSITIVE COLOGUARD Chief Complaint: eosinophilic esophagitis--past due for EGD Allergies No Known Allergies Allergy (Verified 07/15/20 08:14) Medications calcium carbonate-vitamin D3 600 mg(1,500 mg)-400 unit chewable tablet 1 tab PO QDAY ea 11/16/17 [History Confirmed 07/15/20] omega-3 fatty acids 1,000 mg capsule 1,000 mg PO QDAY 11/16/17 [History Confirmed 07/15/20] omeprazole 40 mg capsule,delayed release 40 mg PO QDAY 11/16/17 [History Confirmed 07/15/20] verapamil 180 mg 24 hr capsule,extended release 180 mg PO QDAY 11/16/17 [History Confirmed 07/15/20] hydrochlorothiazide 25 mg tablet 25 mg PO QAM 07/15/20 [History Confirmed 07/15/20] COUNTS INCLUDE 234 BEDS AT THE [facility] Medical History Hemorrhoids (Acute) Constipation (Acute) Diarrhea (Acute) Nausea (Acute) HTN (hypertension) (Chronic) History of malignant melanoma (Acute) GERD (gastroesophageal reflux disease) (Acute) Fundic gland polyps of stomach, benign (Acute) Eosinophilic esophagitis (Acute) Colon cancer screening (Acute) Surgical History Hx of melanoma excision (Acute) H/O section (Acute) S/P laparoscopic cholecystectomy (Acute) H/O esophagogastroduodenoscopy (Acute ~11/29/17) S/P colonoscopy (Acute ~11/29/17) Family History Mother No problems noted. Brother Bladder cancer Social History (Updated 07/15/20 @ 08:[address] Madi Morrell MD) Smoking Status: Never smoker second hand exposure: No alcohol intake: never substance use type: does not use caffeine: Yes what type of physical activity do you participate in: walking frequency: 1-2 times per week seatbelt use: always HPI HPI Surgical H&P: Yes HPI: NAN BRUSH, is a 69 F who presents to the office today for Evaluation for a positive Cologuard test. Patient had a recent Cologuard test by her primary care physician which came back positive. She has noted that she has had alternating constipation and diarrhea-like symptoms. She has not been having any abdominal pain she has not noticed any blood loss per rectum. Exam Const General: no acute distress, well developed, well hydrated Orientation: oriented to person, oriented to place, oriented to time HENMT Head: normocephalic, atraumatic Ears: external ears normal Mouth: moist mucous membranes Eyes Sclera: sclerae normal Pupils: normal by confrontation Neck Neck: no lymphadenopathy noted Neck mass: No Thyroid: thyroid normal, symmetrical Chest Chest palpation & inspection: normal inspection of the chest Resp Effort & Inspection: normal respiratory effort Auscultation: clear to auscultation bilaterally Percussion: percussion normal Cardio Rate: regular rate Rhythm: regular rhythm GI Palpation: soft, no hepatosplenomegaly, no masses, nontender Rectal Exam: other Other: Rectal exam deferred. Extrem General: normal to inspection, no clubbing, cyanosis or edema Assessment & Plan Problems 1. Positive colorectal cancer screening using Cologuard test R19.5 Plan I have discussed the above with the patient. I have offered the patient colonoscopy for evaluation. I have explained the risks/benefits of the procedure and described the procedure. I have discussed the risks with the patient, including but not limited to: infection, bleeding, perforation of the GI tract requiring emergency surgery, inability to complete the procedure, injury to any internal organs, complications of anesthesia, etc. - the patient understands and agrees to proceed. I have answered all the patient's questions to the patient's satisfaction and the patient has no further questions. The patient has been given instructions for the colon cleansing preparation. We will be doing random colon biopsies. Coding Level of Care Code Off vis,est,level 3 Diagnoses Positive colorectal cancer screening using Cologuard test R19.5 COVID (Procedure Consent) Procedure Criteria Procedure Criteria: Yes Elective The surgeon/proceduralist and patient have discussed in detail the risk of exposure to and/or potential harm posed by the COVID-19 virus with having a surgery/procedure at this time versus the risk of? delaying the surgery/procedure. It is not possible to know either the risk of delaying the surgery or procedure or chance of getting an infection with perfect accuracy, but a joint decision was made between the patient and the surgeon/proceduralist ?to proceed at this time with the scheduled surgery/procedure as indicated on the consent form. I have re-examined the patient. There are no clinical changes since date of exam.
[2020-07-31] MEDS: Lactated Ringers 1,000 ML 75 ML IV (07:02)
--- NOTE | 2020-07-31 07:30 | COLBX_PTH ---
PATIENT: NAN BRUSH LOC: EN U#:[id number] AGE/SX: 69/F ROOM: RE07/31/[address]: Dr. Madi Morrell MD : 1950 BED: DIS: 07/31/2020 SPEC #: [id number] RECD: 07/31/20 07:30 STATUS: TOMMY DONTAE #: [id number] TRENA: 07/31/20 07:[address]: Madi Morrell DEPT: SURGICAL PATHOLOGY RECD BY: Tammy Madera ENTERED: 07/31/20 13:30 SP TYPE: COLON BX OTHR DR: Dr. Nikky Tabor DO Tissues: COLON BIOPSY Procedures: Surgery Specimen Level IV HEADER OPERATION: Colonoscopy (MAC) PRE-OP DIAGNOSIS: Positive colorectal cancer screening using Cologuard test TISSUE SUBMITTED: Random colonic biopsy MICROSCOPIC DIAGNOSIS Colon, random biopsy: Fragments of colonic mucosa, no pathologic diagnosis. SJ:beba 11/27/20 MICROSCOPIC DESCRIPTION Slides are reviewed. GROSS DESCRIPTION Received in fixative is one container labeled with the patient's name and designated random colonic biopsy. The specimen consists of multiple irregular fragments of light miguel soft tissue that in aggregate measure 1.5 x 0.5 x 0.1 cm. The specimen is totally submitted in one cassette. / SJ:rg 07/31/20 TC:4 CPT: 07441
[2020-07-31 07:56] VITALS: BP 122/65; BP 144/88; PULSE 67; RESP 16; TEMP 36.4; O2SAT 97
--- NOTE | 2020-07-31 07:56 | OP.COLON_ITS ---
Patient Name: Jaky Spencer Procedure Date: 07/31/2020 7:23 AM Date of : 1950 Age: 69 Procedure: Colonoscopy Indications: Clinically significant diarrhea of unexplained origin, Positive Cologuard test Providers: Madi Morrell MD Referring MD: Nkiky Tabor Medicines: See the Anesthesia note for documentation of the administered medications Patient Profile: This is a 69 year old female. Refer to note in patient chart for documentation of history and physical. Last Colonoscopy: 2017. Complications: No immediate complications. Procedure: Pre-Anesthesia Assessment: - Prior to the procedure, a History and Physical was performed, and patient medications and allergies were reviewed. The patient's tolerance of previous anesthesia was also reviewed. The risks and benefits of the procedure and the sedation options and risks were discussed with the patient. All questions were answered, and informed consent was obtained. Prior Anticoagulants: The patient has taken no previous anticoagulant or antiplatelet agents. ASA Grade Assessment: II - A patient with mild systemic disease. After reviewing the risks and benefits, the patient was deemed in satisfactory condition to undergo the procedure. After I obtained informed consent, the scope was passed under direct vision. Throughout the procedure, the patient's blood pressure, pulse, and oxygen saturations were monitored continuously. The colonoscope was introduced through the anus and advanced to the cecum, identified by appendiceal orifice and ileocecal valve. The colonoscopy was performed without difficulty. The patient tolerated the procedure well. The quality of the bowel preparation was good. Scope In: 7:36:43 AM Scope Withdrawal Time 0 hours 8 minutes 9 seconds Scope Out: 7:49:42 AM Total Procedure Duration Time 0 hours 12 minutes 59 seconds Findings: Multiple small and large-mouthed diverticula were found in the sigmoid colon and descending colon. No biopsies or other specimens were collected for this exam. The colon (entire examined portion) appeared normal. Biopsies for histology were taken with a cold forceps from the entire colon for evaluation of microscopic colitis. Impression: - Diverticulosis in the sigmoid colon and in the descending colon. No specimens collected. - The entire examined colon is normal. Biopsied. Recommendation: - Discharge patient to home. - Resume previous diet. - Continue present medications. - Await pathology results. - Repeat colonoscopy in 10 years for screening purposes. - Return to primary care physician (date not yet determined). Procedure Code(s): --- Professional --- 64603, Colonoscopy, flexible; with biopsy, single or multiple Diagnosis Code(s): --- Professional --- R19.7, Diarrhea, unspecified R19.5, Other fecal abnormalities K57.30, Diverticulosis of large intestine without perforation or abscess without bleeding CPT copyright 2017 [employer]. All rights reserved. The codes documented in this report are preliminary and upon child development specialist review may be revised to meet current compliance requirements. MD Madi Manzano MD 07/31/2020 7:56:41 AM This report has been signed electronically. Number of Addenda: 0 Note Initiated On: 07/31/2020 7:23 AM
--- NOTE | 2020-07-31 07:57 | OP.CCLET_ITS ---
07/31/2020 Nikky Tabor [address] [place] [address] Re : Colonoscopy procedure for Jaky Spencer Dear Dr. Tabor This procedure was performed on Friday, July 31, 2020. My impressions and recommendations are as follows: Impressions : - Diverticulosis in the sigmoid colon and in the descending colon. No specimens collected. - The entire examined colon is normal. Biopsied. Recommendations : - Discharge patient to home. - Resume previous diet. - Continue present medications. - Await pathology results. - Repeat colonoscopy in 10 years for screening purposes. - Return to primary care physician (date not yet determined). My findings are described in the full procedure note, which is enclosed. If I can be of further assistance, please feel free to contact me at Doctor phone number(s): , Fax: [phone], Work: . Sincerely, MD Madi Manzano MD 07/31/2020 7:56:41 AM This report has been signed electronically.
[2020-07-31 08:01] VITALS: BP 114/66; BP 144/88; PULSE 63; RESP 17; O2SAT 96
[2020-07-31 08:06] VITALS: BP 120/64; BP 144/88; PULSE 58; RESP 16; O2SAT 96
[2020-07-31 08:11] VITALS: BP 120/56; BP 144/88; PULSE 58; RESP 16; TEMP 36.3; O2SAT 97
[2020-07-31 08:24] VITALS: BP 144/88
== END 2020-07-31 08:31 | disposition home or self-care (01) ==
LOC: EN 06:22 → AC 06:22
PROVIDERS: PCP Internal Medicine; Referring Provider Internal Medicine; Visit Provider Surgery
PROC: 0DJD8ZZ Inspection of Lower Intestinal Tract, Via Natural or Artificial Opening Endoscopic (ICD-10-PCS; CPT 45378; principal; 2020-07-31 07:25)
DX: K57.30 Diverticulosis of large intestine without perforation or abscess without bleeding (principal); Z20.828 Contact with and (suspected) exposure to other viral communicable diseases; I10 Essential (primary) hypertension; K21.9 Gastro-esophageal reflux disease without esophagitis; Z79.899 Other long term (current) drug therapy; Z85.820 Personal history of malignant melanoma of skin
CPT/HCPCS: 45380; 87635; 88305; C9803; J7120; J1610; J2405; U0002

== ENCOUNTER → 2020-12-24 09:52 | Outpatient (CLI) | payer MEDICARE, BC, SELFPAY ==
[2020-07-15 08:13] VITALS: BMI 29.2
--- NOTE | 2020-12-24 09:55 | BI_ITS ---
MAMMOGRAPHY - BILATERAL SCREENING REASON FOR EXAM: Female, 70 years old. Routine annual screening examination. PERTINENT HISTORY: Non-contributory. TECHNIQUE: Digital bilateral breast darren (3D mammographic acquisition) in the CC and MLO projections. 2-D mediolateral oblique (MLO) and craniocaudad (CC) views of both breasts were obtained. CAD: Full Field Digital Mammography with Computer Added Detection was performed. COMPARISON: Comparison is made with prior study dated 11/21/2019 and 11/18/2018. FINDINGS: Breast Composition: The breasts are heterogeneously dense, which may obscure small masses. There are no dominant masses or suspicious calcifications. Stable linear scar is once again seen in the axillary region of the left breast. No other significant abnormalities are identified. There has been no significant change since the prior study. BI/SCRN MAMM (CAD)W/DARREN BILAT IMPRESSION: Stable bilateral screening mammogram. Yearly follow-up mammogram recommended. (A) ASSESSMENT CATEGORY: BIRADS Category 2: Benign. A letter regarding these results will be sent to the patient by the facility within 30 days. Approximately 10% of breast cancers are not detected by mammography. A normal mammogram should not delay biopsy of a clinically suspicious abnormality. [id number] Electronically Signed: Sergio Yang MD at 12:37 EDT , Service support ,
--- NOTE | 2020-12-24 09:57 | BD_ITS ---
STUDY: DUAL ENERGY X-RAY ABSORPTIOMETRY / DXA REASON FOR EXAM: Female, 70 years old. M85.89 -- OSTEOPENIA TECHNIQUE: Bone Mineral Density (BMD) measurements of lumbar spine and bilateral hips were obtained. COMPARISON: Comparison is made with prior study dated 05/24/2018. FINDINGS: Lumbar Spine (L1-L4): g/cm2 (1.097) / T-score (-0.6) / Z-score (1.1) Findings are suggestive of normal bone density with a low fracture risk. Left Femur Total: g/cm2 (0.935) / T-score (-0.6) / Z-score (0.9) Left Femoral Neck: g/cm2 (0.901) / T-score (-1.0) / Z-score (0.7) Right Femur Total: g/cm2 (1.022) / T-score (0.1) / Z-score (1.6) Right Femoral Neck: g/cm2 (0.899) / T-score (-1.0) / Z-score (0.7) The T-Scores on the most recent prior examination were: Lumbar Spine (L1-L4): There has been improvement of bone density since the previous examination. Left Femur Total: which represents a worsening of 0.1%. Right Femur Total: which represents an improvement of 4.9%. BD/Dexa Bone Density Study IMPRESSION: The patient is considered normal as outlined below according to World Carroll Organization (WHO) criteria with a low fracture risk. There has been improvement of bone density since the previous examination. Reference Information: The T-score is the number of standard deviations above or below the standard which is normal for young adults at their peak bone mineral density. The World Health Organization (WHO) interprets the T-scores as follows: Above -1 Normal bone density Between -1 and -2.5 Osteopenia Equal to / or below -2.5 Osteoporosis As a practical clinical guideline, osteopenia may be graded as follows: Mild -1 through -1.5 Moderate -1.6 through -2.0 Severe -2.1 through -2.4 The Z-score is the number of standard deviations above or below age-matched controls. A Z-score of less than -1.5 would be considered abnormal. References: 1. NIH Osteoporosis and Related Bone Diseases www osteo.org 2. International Society for Clinical Densitometry www iscd.org 3. National Osteoporosis Foundation www nof.org Electronically Signed: Sergio Yang MD at 14:21 EDT , Service support ,
== END ==
PROVIDERS: PCP Internal Medicine; Referring Provider Internal Medicine; Visit Provider Internal Medicine
DX: Z12.31 Encounter for screening mammogram for malignant neoplasm of breast (principal); M85.80 Other specified disorders of bone density and structure, unspecified site; Z78.0 Asymptomatic menopausal state
CPT/HCPCS: 77063; 77067; 77080

== ENCOUNTER 2021-12-25 10:37 | Outpatient (CLI) | payer MEDICARE, BC, SELFPAY ==
--- NOTE | 2021-12-25 10:39 | BI_ITS ---
MAMMOGRAPHY - BILATERAL SCREENING 3-D TOMOSYNTHESIS REASON FOR EXAM: Female, 71 years old. screening for breast cancer PERTINENT HISTORY: No significant family history. TECHNIQUE: 2-D mammograms and 3-D Tomosynthesis of the breast (s) were performed. CAD was performed. COMPARISON: 12/24/2020 FINDINGS: The breast composition is Extermely dense tissue. Scattered benign calcifications are seen. No dense spiculated masses or suspicious microcalcifications are identified. No architectural distortion is identified. There is no skin thickening or retraction. There has been no significant change since the prior study. BI/SCRN MAMM (CAD)W/DARREN BILAT IMPRESSION: No mammographic signs of malignancy. Routine yearly mammograms recommended. ASSESSMENT CATEGORY: BIRADS Category 1: Negative. A letter regarding these results will be sent to the patient by the facility within 30 days. FOLLOW UP RECOMMENDATION: Yearly follow up mammogram recommended. (A) Approximately 10% of breast cancers are not detected by mammography. A normal mammogram should not delay biopsy of a clinically suspicious abnormality. Electronically Signed: Aleksandar Blank MD at 12:02 EDT ,
== END 2021-12-25 23:59 | disposition home or self-care (01) ==
LOC: OPBI 10:38
PROVIDERS: PCP Internal Medicine; Referring Provider Nurse Practitioner Women's Health; Visit Provider Nurse Practitioner Women's Health
DX: Z12.31 Encounter for screening mammogram for malignant neoplasm of breast (principal)
CPT/HCPCS: 77063; 77067

== ENCOUNTER → 2022-07-06 | Outpatient (CLI) | payer MEDICARE, BC, SELFPAY ==
--- NOTE | 2022-07-06 09:33 | RAD_ITS ---
INDICATION: Neck pain radiating down the right side of the neck for greater than one year. EXAMINATION/TECHNIQUE: X-RAY - XR Spine Cervical 2 or 3 Views COMPARISON: None. FINDINGS: VERTEBRAE: Preserved vertebral body height. No fracture. There is mild retrolisthesis of C5 on C6. Preservation of the normal cervical lordosis. 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 DISCS: Disc space narrowing and endplate spondylosis most marked at C5-6. NECK SOFT TISSUES: No prevertebral soft tissue widening. LUNG APICES: Clear. RAD/Cerv Spine 2 or 3 Views IMPRESSION: Degenerative changes of the cervical spine, most marked at C5-6, without acute fracture or subluxation.. Electronically Signed: Clay Velasquez DO at 20:38 EDT ,
== END | disposition home or self-care (01) ==
LOC: MTRAD 09:27
PROVIDERS: PCP Internal Medicine; Referring Provider Internal Medicine; Visit Provider Internal Medicine
DX: M54.2 Cervicalgia (principal)
CPT/HCPCS: 72040

== ENCOUNTER → 2022-08-14 | Outpatient (CLI) | payer MEDICARE, BC, SELFPAY ==
--- NOTE | 2022-08-14 10:06 | RAD_ITS ---
EXAM: XR CHEST, 2 VIEWS CLINICAL INDICATION: COUGH TECHNIQUE: Frontal and lateral views of the chest. This report was created using [employer] report generation technology. COMPARISON: XR Chest dated 04/24/2013 FINDINGS: LUNGS AND PLEURAL SPACES: Normal. No consolidation or edema. No pneumothorax. No effusion. HEART: Normal heart size. MEDIASTINUM: No mediastinal or hilar mass. BONES/JOINTS: No acute abnormality. SOFT TISSUES: Left axillar surgical clips again seen. RAD/Chest PA and Lateral IMPRESSION: No acute cardiopulmonary abnormality. No interval change. Electronically Signed: Justin cMneil MD at 12:18 EST ,
== END | disposition home or self-care (01) ==
LOC: MTRAD 10:05
PROVIDERS: PCP Internal Medicine; Referring Provider Internal Medicine; Visit Provider Internal Medicine
DX: R05.9 Cough, unspecified (principal)
CPT/HCPCS: 71046

== ENCOUNTER 2022-09-11 10:30 | Outpatient (RCR) | payer MEDICARE, BC, SELFPAY ==
--- NOTE | 2022-07-21 09:57 | HP.PTEVAL_ITS ---
Patient's Visit Information NAN BRUSH is a 71 year old F referred to Physical Therapy by Dr. Nikky Tabor DO with a diagnosis of Neck Pain. Date of Evaluation: 07/21/22 Physical Therapist: GUNNAR Hurtado - Visit Plan Frequency: 2x /Week Duration: 3 Weeks Plan: Add chin tucks next visit for upper stretching. 2X/ week for 3 weeks for mid, upper and lower trap stretches, scalenes, and levator (manual and self stretches) postural and scapular exercises, some MT to the c-spine with light distraction and suboccip release. HEP: upper trap stretch holding bottom of the chair and Levator scapulae - Subjective Pt has had neck pain for years, She has always had back and neck issues and chiropractors have helped. Her pain in her neck really does not go away at all any more. Some days are worse than others. Her mobility has changed. Sometimes it is very painful and other times it is just baseline there. thought to do PT. She did an x-ray and showed DDD in spine. She said the pain is always on the Right side but does get some on the L side as well. It does not cause any numbness in her arms. She has a massage chair at home and hand held massager at home. She sleeps at night. She can get 7 hours in most of the time. She has no weakness in her hands. Pt gets BERNAL 1-2 a week. In nice weather she [place], reads (tries not to look down too much), walk, cleans the house. - Pain neck pain Pain Intensity (Out of 10): 4 - Objective C-spine AROM: Flex 100%, Ext 25%, SB L 50#, SB R 25%, Rot R 50% and Rot L 50%. R handed: R hand supervisor litharge strength 45#. L hand supervisor litharge strength 55#. UE MMT: R shoulder flex 6.5#, R shoulder ABD 9.6#, ER 11#. L shoulder flex 7.0#, R shoulder ABD 9.6#, ER 8.3#. Bicep Reflex: 2+/3 B. Palpation: tender upper and mid trap and levator B. [place] better with light distraction and manual supine neck stretches - Balance/Special Test Scores Oswestry Neck Score: 16 - Goals Goal 1:: I HEP Goal Time Frame: 4-6 Weeks Goal 2:: Decrease freq of intense neck pain by 50% Goal Time Frame: 4-6 Weeks Goal 3:: Increase C-spine AROM (at time of the eval: Flex 100%, Ext 25%, SB L 50#, SB R 25%, Rot R 50% and Rot L 50%) Goal Time Frame: 4-6 Weeks Goal 4:: Sit with upright posture during treatment sessions Goal Time Frame: 4-6 Weeks - Rehabilitation Potential Rehabilitation Potential: Good - Anticipated Interventions Patient/Client Instruction: Educate patient on: Condition, Plan of Care For the Purpose of:: To decrease pain, To increase ROM, To improve nutrient delivery to tissue, To improve muscle performance and motor function, To improve ability to perform ADL's, To increase tolerance to activity/condition/position, To improve performance and independence with ADL's, To decrease level of supervision to perform tasks, To improve health of tissue, To decrease soft tissue restriction, To increase flexibility/ROM Therapeutic Exercise to Include: Strength training, Postural training, Flexibilty training, Neuromotor development, Passive ROM, Active ROM, Scapular Strength/Stabilization For the Purpose of:: To decrease pain, To increase ROM, To improve nutrient delivery to tissue, To improve muscle performance and motor function, To improve ability to perform ADL's, To increase tolerance to activity/condition/position, To improve performance and independence with ADL's, To decrease level of supervision to perform tasks, To improve health of tissue, To decrease soft tissue restriction, To increase flexibility/ROM Manual Therapy Techniques to Include: Mobilization, Passive ROM, Soft tissue mobilization For the Purpose of:: To decrease pain, To increase ROM, To improve nutrient delivery to tissue, To improve muscle performance and motor function, To improve ability to perform ADL's, To improve health of tissue, To decrease soft tissue restriction, To increase flexibility/ROM Thermo therapy (hot pack): Yes Ultrasound (thermal/non thermal): Yes For the Purpose of:: To decrease pain, To decrease swelling/inflammation, To increase ROM, To improve nutrient delivery to tissue Thank you for the opportunity to evaluate your patient. For Medicare and Medicare HMO plans, please review the plan of care and approve it. It will need to be FAXED BACK to us at [phone] for Medicare purposes. For Medicare only, by signing this I certify the plan of care. Please let me know if there are questions or concerns regarding this plan of care. Physician Signature: Date:
--- NOTE | 2022-09-11 10:58 | HP.PTDCSUM ---
It has been my pleasure to treat NAN BRUSH referred by Dr. Nikky Tabor DO, with the diagnosis of Neck Pain for a total of 11 visit(s). Discharge Date: 09/11/22 Please see the following information for a summary of their discharge status. Subjective: Pt reports that she is better but not 100%. Pt is doing stretches and exercises at home. The manual stretching and heat has helped. Freq of neck pain. neck pain Pain Intensity (Out of 10): 2 % Improvement: 80 Objective/Function: Increase C-spine AROM (at time of the eval: Flex 100%, Ext 100%, SB L 50#, SB R 50%, Rot R 90% and Rot L 50%). Posture: good upright posture. Still tight on the R upper trap with MT Goal 1:: I HEP Goal Progress: Goal Met Goal 2:: Decrease freq of intense neck pain by 50% Goal Progress: Goal Met Goal 3:: Increase C-spine AROM (at time of the eval: Flex 100%, Ext 25%, SB L 50#, SB R 25%, Rot R 50% and Rot L 50%) Goal Progress: Progressing Goal 4:: Sit with upright posture during treatment sessions Goal Progress: Goal Met Plan: DC PT to HEP and I massages Discharge Comments: DC PT to HEP If there are questions or concerns regarding this patient's physical therapy, please feel free to call me at [phone]. Thank you for the referral of this patient. Sincerely, Ashley Silva, MPT Balance/Gait/Functional tests - Balance/Special Test Scores Oswestry Neck Score: 9
== END 2022-09-11 15:44 | disposition home or self-care (01) ==
LOC: PT 10:30
PROVIDERS: PCP Internal Medicine; Referring Provider Internal Medicine; Visit Provider Internal Medicine
DX: M54.2 Cervicalgia (principal)
CPT/HCPCS: 97110; 97140; 97161; 97164

== ENCOUNTER → 2022-10-15 | Outpatient (CLI) | payer MEDICARE, BC, SELFPAY ==
--- NOTE | 2022-10-15 12:15 | PFT ---
INTRODUCTION: The patient is a 71-year-old female that presents for pulmonary function studies secondary to a diagnosis of cough. Respiratory therapy reported good patient effort. Bronchodilators were used during testing. INTERPRETATION: Forced expiration spirometry demonstrates no evidence of a large airways obstructive ventilatory defect. There was no significant response to aerosolized bronchodilators. Spirograms are of good quality and plateau gradually indicating slow emptying of the lungs. Body plethysmography was performed and revealed lung volumes to be within normal limits. Diffusing capacity by single breath CO was within normal limits. IMPRESSION: Grossly normal pulmonary function studies.
== END | disposition home or self-care (01) ==
PROVIDERS: PCP Internal Medicine; Referring Provider Internal Medicine; Visit Provider Internal Medicine
DX: R05.9 Cough, unspecified (principal)
CPT/HCPCS: 94060; 94726; 94729

== ENCOUNTER → 2022-10-22 | Outpatient (CLI) | payer MEDICARE, BC, SELFPAY ==
[2022-10-27 20:51] LABS: B. pertussis IgA < 1.0 index (0.0-0.9); B. pertussis IgG 2.88 index (0.00-0.94)
== END | disposition home or self-care (01) ==
LOC: PSN 14:10
PROVIDERS: PCP Internal Medicine; Referring Provider Internal Medicine; Visit Provider Internal Medicine
DX: R05.3 Chronic cough (principal); Z20.822 Contact with and (suspected) exposure to COVID-19
CPT/HCPCS: 36415; 86615; 87633; 87635; U0003; U0005

== ENCOUNTER → 2022-10-23 | Outpatient (CLI) | payer MEDICARE, BC, SELFPAY ==
--- NOTE | 2022-10-23 12:49 | RAD_ITS ---
INDICATION: Cough. EXAMINATION/TECHNIQUE: X-RAY - XR Chest 2 Views COMPARISON: 04/24/2013. FINDINGS: LINES/DEVICES: None. LUNGS: No consolidation, edema or effusion. No pneumothorax. MEDIASTINUM AND CARDIOVASCULAR STRUCTURES: Borderline cardiac silhouette. Tortuosity of the thoracic aorta. BONES AND SOFT TISSUES: No demonstrated acute osseous changes. Mild levoscoliosis could be positional. Surgical clips in the left axilla. RAD/Chest PA and Lateral IMPRESSION: No radiographic evidence of acute cardiopulmonary disease. Electronically Signed: Harjeet Cade MD at 11:40 EST ,
== END | disposition home or self-care (01) ==
LOC: MTRAD 12:49
PROVIDERS: PCP Internal Medicine; Referring Provider Internal Medicine; Visit Provider Internal Medicine
DX: R05.3 Chronic cough (principal); K21.9 Gastro-esophageal reflux disease without esophagitis; K20.0 Eosinophilic esophagitis; Z85.820 Personal history of malignant melanoma of skin
CPT/HCPCS: 71046

== ENCOUNTER 2022-12-19 14:40 | Emergency (ER) | payer MEDICARE, BC, SELFPAY ==
[2022-12-19 14:41] VITALS: BP 134/109; PULSE 100; RESP 22; TEMP 36.6; O2SAT 99; BMI 28.3
--- NOTE | 2022-12-19 14:59 | EX.ED.DYSGE1 ---
HPI <SHAKILA Bourgeois - Last Filed: 12/19/22 17:19> History of Present Illness Chief Complaint: Nausea/Vomiting/Diarrhea Narrative Narrative: Patient is a 72-year-old female with history of hypertension presents to the emergency department with 2 days of nausea vomiting diarrhea. Patient is here with her who had similar symptoms 4 to 5 days ago. They were recently in [place] for a vacation, the became ill with nausea vomiting diarrhea. He started to improve, patient returned home from their vacation 2 days ago, and started having symptoms last night. Patient is now complaining of nausea, vomiting, diarrhea. Patient denies any blood in stool or vomit. Patient did try Pepto-Bismol however this did not help. Patient states she feels dehydrated and is here for evaluation [facility] <SHAKILA Bourgeois - Last Filed: 12/19/22 17:19> [facility] Medical History (Updated 12/19/22 @ 17:17 by SHAKILA Bourgeois) Chronic cough Eosinophilic esophagitis Fundic gland polyps of stomach, benign GERD (gastroesophageal reflux disease) Hemorrhoids History of malignant melanoma HTN (hypertension) Home Medications calcium carbonate 600 mg-vitamin D3 10 mcg (400 unit) chewable tablet (Calcium 600 with Vitamin D3) 1 tab PO QDAY 11/16/17 [History Last Taken Unknown] omega-3 fatty acids 1,000 mg capsule (Fish Oil Concentrate) 1,000 mg PO QDAY 11/16/17 [History Last Taken 07/25/20] verapamil 180 mg 24 hr capsule,extended release 180 mg PO QDAY BP 11/16/17 [History Last Taken 07/31/20 05:30] hydrochlorothiazide 25 mg tablet 25 mg PO QAM bp 07/15/20 [History Last Taken Unknown] levothyroxine 25 mcg tablet 50 mcg PO DAILY thyroid 07/26/20 [History Last Taken 07/31/20 05:30] solifenacin 5 mg tablet (Vesicare) 5 mg PO DAILY 10/06/21 [History Last Taken Unknown] clobetasol 0.05 % topical ointment 1 applic topical .COMPLEX #15 grams 10/07/22 [Rx Last Taken Unknown] azithromycin 250 mg tablet See Rx Instructions PO .COMPLEX #6 tabs 10/22/22 [Rx Last Taken Unknown] fluticasone propionate 220 mcg/actuation HFA aerosol inhaler (Flovent HFA) 2 puff inhalation BID cough #12 grams 10/22/22 [Rx Last Taken Unknown] ipratropium bromide 21 mcg (0.03 %) nasal spray 2 spray intranasal BID-TID PRN cough #30 mL 10/22/22 [Rx Last Taken Unknown] prednisone 20 mg tablet 40 mg PO DAILY cough #14 tabs 10/22/22 [Rx Last Taken Unknown] omeprazole 40 mg capsule,delayed release 40 mg PO BID reflux #60 caps 10/26/22 [Rx Last Taken Unknown] dicyclomine 20 mg tablet 20 mg PO BID #20 tabs 12/19/22 [Rx Last Taken Unknown] ondansetron 4 mg disintegrating tablet 4 mg PO Q8H PRN PRN Nausea #10 tabs 12/19/22 [Rx Last Taken Unknown] Allergy/AdvReac Type Severity Reaction Status Date / Time No Known Allergies Allergy Verified 12/19/22 14:44 Family History Mother No problems noted. Brother Bladder cancer Surgical History H/O section H/O esophagogastroduodenoscopy (~11/29/17) S/P colonoscopy (~11/29/17) S/P laparoscopic cholecystectomy Social History household members: spouse Smoking Status: Never smoker second hand exposure: No alcohol intake: never substance use type: does not use caffeine: Yes what type of physical activity do you participate in: walking frequency: 1-2 times per week seatbelt use: always do you feel safe at home: Yes additional social history: - Godfrey MIRANDA <SHAKILA Bourgeois - Last Filed: 12/19/22 17:19> RUTH MIRANDA Narrative Constitutional: Negative for fever, chills, weight loss, weakness Eyes: Negative for vision loss, vision change, double vision ENT: Negative for any sore throat, ear pain, congestion Cardiovascular: Negative for any chest pain, tightness, palpitations Respiratory: Negative for any cough, sputum production, hemoptysis, dyspnea, dyspnea on exertion, orthopnea Gastrointestinal: Negative for any abdominal pain, constipation, blood in stool, blood in vomit. Positive for nausea, vomiting, diarrhea : Negative for any urinary frequency, dysuria, retention, blood in urine Muscle skeletal: Negative for any muscle joint pain, stiffness, myalgias, arthralgias, neck pain, back pain Neurological: Negative for any headache, syncope, numbness or tingling, dizziness Skin: Negative for any rashes, lumps, itching, abrasions, lacerations Psychiatric: Negative for any depression, anxiety, stress, suicidal ideation, homicidal ideation Hematologic: Negative for any easy bruising, excessive bruising, easy bleeding Allergies: Negative for any eczema, hives, rash EXAM <SHAKILA Bourgeois - Last Filed: 12/19/22 17:19> Physical Exam Narrative Exam Narrative: Vital signs reviewed. HEET: Head normocephalic atraumatic, TMs clear bilaterally. Posterior pharynx is clear, dry mucous membranes. Nares clear bilaterally. Neck: Supple with no lymphadenopathy or tenderness. No signs of meningismus, negative jolt sign. Cardiac: Regular rate and rhythm no murmurs gallops or rubs, equal peripheral pulses bilaterally. Respiratory: Lungs clear to auscultation bilaterally. No chest tenderness. Abdomen: Soft, nontender, nondistended. No abdominal bruit or pulsatile masses. No hepatosplenomegaly Extremities: No peripheral edema, no signs of gross trauma or deformity. Active full range of motion of all extremities. Neuro: Cranial nerves II through XII intact, no focal neurological deficits. Skin: Clean dry and intact with no rash, purpura, petechiae, vesicles or pustules. Backs/flank: No CVA tenderness, no midline spinal tenderness, no deformity. Psych: Normal mood and affect. No SI, HI or acute psychosis. Const Vital Signs: 12/19/22 14:41 12/19/22 17:01 12/19/22 19:02 Temperature 98 F Temperature Source Temporal Pulse Rate 100 90 88 Respiratory Rate 22 H 16 16 Blood Pressure 134/109 H 130/89 H 132/87 H Blood Pressure Mean 117 102 102 Pulse Ox 99 99 99 Oxygen Delivery Method Room Air <Dr. Jamie Mooney DO - Last Filed: 12/19/22 22:09> Physical Exam Const Vital Signs: 12/19/22 14:41 12/19/22 17:01 12/19/22 19:02 Temperature 98 F Temperature Source Temporal Pulse Rate 100 90 88 Respiratory Rate 22 H 16 16 Blood Pressure 134/109 H 130/89 H 132/87 H Blood Pressure Mean 117 102 102 Pulse Ox 99 99 99 Oxygen Delivery Method Room Air [facility] <Bobby EscobedoSHAKILA - Last Filed: 12/19/22 17:19> [facility] Lab Data Labs: Laboratory Results - last 24 hr 12/19/22 12/19/22 15:00 15:00 WBC 16.5 H RBC 5.50 H Hgb 15.3 H Hct 45.8 MCV 83.3 MCH 27.8 MCHC 33.4 RDW Std Deviation 40.1 RDW Coeff of Perry 13.2 Plt Count 373 MPV 9.9 Immature Gran % (Auto) 0.400 Neut % (Auto) 89.4 H Lymph % (Auto) 6.0 L Hill % (Auto) 4.0 Eos % (Auto) 0.0 Baso % (Auto) 0.2 Absolute Neuts (auto) 14.8 H Absolute Lymphs (auto) 0.99 Nucleated RBC % 0 Sodium 137 Potassium 2.8 L Chloride 105 Carbon Dioxide 21.0 Anion Gap 11 BUN 22 H Creatinine 1.02 Estim Creat Clear Calc 38.85 Est GFR (MDRD) Af Amer 68 Est GFR (MDRD) Non-Af 57 L BUN/Creatinine Ratio 21.6 H Glucose 141 H Calcium 9.6 Total Bilirubin 0.40 AST 35 ALT 47 Alkaline Phosphatase 101 Total Protein 8.0 Albumin 4.0 Globulin 4.0 Albumin/Globulin Ratio 1.0 Lipase 27 Radiography Diagnostic Testing: Clinical Impression(s) from Imaging Studies Abdomen/Pelvis CT 12/19/22 15:01 IMPRESSION: Duodenal diverticulum. Colonic diverticulosis. Left renal cysts. Small fatty umbilical hernia. Electronically Signed: Colton Calvo DO at 16:24 EDT Reading Location ID and State: [facility] / [place] Tel [phone], Service support , Treatment and Re-Evaluation :: ED attending note: I evaluated the patient in conjunction with the KENDRA. I agree with his/her statements and above findings. I have personally performed a face to face assessment of the patient and have reviewed the KENDRA Note. I performed a substantive portion of the visit including all aspects of the following. I personally saw the patient performed chart review, physical exam, reviewed labs, imaging (if obtained), and formulated a treatment and management plan. 72-year-old female here with nausea vomiting abdominal pain after recent travel to [place]. No recent antibiotic use, recent hospitalizations. No melena hematochezia. History of abdominal surgeries. No fever. No chest pain or shortness of breath Exam: Nursing triage notes reviewed, Vital signs reviewed Constitutional: please see mdm HENT: MMM Eyes: Pupils equal round and reactive to light, Extraocular muscles intact Neck: No stridor, no JVD, full neck ROM Lungs: Clear to auscultation, No wheezing or rales. No increased work of breathing, no conversational dyspnea, no accessory muscle use, no nasal flaring. No respiratory distress noted Heart: Regular rate and rhythm, No murmurs, No rubs and No gallops, 2+ distal pulses (radial, femoral, posterior tibial) in all extremities Abdomen: Soft, minimal diffuse tenderness but no rigidity, rebound or guarding, no obvious peritoneal signs, no palpable pulsatile abdominal masses, no auscultated abdominal bruit : No CVAT Extremities: No edema Neuro: No focal neurological deficits, cranial nerves II through XII intact, 5/5 strength in all extremities. Intact sensation to light touch in all extremities, 2+ reflexes bilateral patella dens. Normal gait. No ataxia. Skin: No rash or lesions noted MDM/plan: Chief Complaint: Abdominal pain nausea External records reviewed: No recent imaging, history abdominal surgery I considered the following differential diagnosis: Perforation, obstruction, AAA, gastroenteritis, dehydration, CAROL, hepatobiliary pathology, anemia The patient was hemodynamically stable, afebrile, nontoxic-appearing. Abdominal exam was nonfocal and benign but given the patient advanced age history abdominal surgeries we obtain advanced imaging. Will give symptomatic treatment, flu, Zofran. Will dispo based on labs, images, reassessment, vital sign reassessment, repeat abdominal exam and share decision making Factors affecting care: History of hypothyroidism, history of abdominal surgery Social determinants of health: Former smoker, positive caffeine intake History obtained from others: The patient's Shared decision making: I will have a discussion with the patient and or visitors regarding risk/benefits of further testing or admission. They will be made aware of of the risk/benefits inherent in this decision they will be given the opportunity to voice understanding. Consults: Possibly general surgery if there is any acute intra-abdominal pathology identified Patient appears to be in no respiratory distress, patient appears nontoxic, vital signs are stable. Patient presents to the emergency department with nausea, vomiting, diarrhea is been ongoing for last 2 days. Patient's physical examination is consistent with gastroenteritis, viral-like illness. However patient will receive a full abdominal work-up with laboratory study as well as CT scan of the abdomen pelvis to rule out any diverticulitis, perforation, appendicitis. Patient's laboratory values show a leukocytosis with white blood count of 16.5, this could be reactive, patient is also hemoconcentrated, this could be secondary to dehydration nausea and vomiting. Patient's chemistries showed a hypokalemia with a potassium of 2.8, patient will receive 40 mill equivalents IV as well as 40 mill equivalents by mouth. Renal function was unremarkable. Lipase was negative. Patient did receive a CT scan of the abdomen pelvis, this showed a duodenal diverticulum, colonic diverticulosis, left renal cyst, small fatty umbilical hernia. No acute process. Patient was given IV fluids x2, Zofran, Bentyl. On reassessment, the patient felt much better. She will receive the 40 mill equivalent of potassium orally, this will be an oral challenge. At this time, patient will be treated for viral gastroenteritis. She be placed on Zofran, Bentyl for home. She will maintain hydration. She was given return precaution. I was able to speak with the patient's , he had no further questions, patient stable for discharge <Dr. Jamie Mooney, DO - Last Filed: 12/19/22 22:09> [facility] Lab Data Labs: Laboratory Results - last 24 hr 12/19/22 12/19/22 15:00 15:00 WBC 16.5 H RBC 5.50 H Hgb 15.3 H Hct 45.8 MCV 83.3 MCH 27.8 MCHC 33.4 RDW Std Deviation 40.1 RDW Coeff of Perry 13.2 Plt Count 373 MPV 9.9 Immature Gran % (Auto) 0.400 Neut % (Auto) 89.4 H Lymph % (Auto) 6.0 L Hill % (Auto) 4.0 Eos % (Auto) 0.0 Baso % (Auto) 0.2 Absolute Neuts (auto) 14.8 H Absolute Lymphs (auto) 0.99 Nucleated RBC % 0 Sodium 137 Potassium 2.8 L Chloride 105 Carbon Dioxide 21.0 Anion Gap 11 BUN 22 H Creatinine 1.02 Estim Creat Clear Calc 38.85 Est GFR (MDRD) Af Amer 68 Est GFR (MDRD) Non-Af 57 L BUN/Creatinine Ratio 21.6 H Glucose 141 H Calcium 9.6 Total Bilirubin 0.40 AST 35 ALT 47 Alkaline Phosphatase 101 Total Protein 8.0 Albumin 4.0 Globulin 4.0 Albumin/Globulin Ratio 1.0 Lipase 27 Radiography Diagnostic Testing: Clinical Impression(s) from Imaging Studies Abdomen/Pelvis CT 12/19/22 15:01 IMPRESSION: Duodenal diverticulum. Colonic diverticulosis. Left renal cysts. Small fatty umbilical hernia. Electronically Signed: Colton Calvo DO at 16:24 EDT Reading Location ID and State: [facility] / [place] Tel [phone], Service support , Treatment and Re-Evaluation :: Patient appears to be in no respiratory distress, patient appears nontoxic, vital signs are stable. Patient presents to the emergency department with nausea, vomiting, diarrhea is been ongoing for last 2 days. Patient's physical examination is consistent with gastroenteritis, viral-like illness. However patient will receive a full abdominal work-up with laboratory study as well as CT scan of the abdomen pelvis to rule out any diverticulitis, perforation, appendicitis. Patient's laboratory values show a leukocytosis with white blood count of 16.5, this could be reactive, patient is also hemoconcentrated, this could be secondary to dehydration nausea and vomiting. Patient's chemistries showed a hypokalemia with a potassium of 2.8, patient will receive 40 mill equivalents IV as well as 40 mill equivalents by mouth. Renal function was unremarkable. Lipase was negative. Patient did receive a CT scan of the abdomen pelvis, this showed a duodenal diverticulum, colonic diverticulosis, left renal cyst, small fatty umbilical hernia. No acute process. Patient was given IV fluids x2, Zofran, Bentyl. On reassessment, the patient felt much better. She will receive the 40 mill equivalent of potassium orally, this will be an oral challenge. At this time, patient will be treated for viral gastroenteritis. She be placed on Zofran, Bentyl for home. She will maintain hydration. She was given return precaution. I was able to speak with the patient's , he had no further questions, patient stable for discharge ED attending note: I evaluated the patient in conjunction with the KENDRA. I agree with his/her statements and above findings. I have personally performed a face to face assessment of the patient and have reviewed the KENDRA Note. I performed a substantive portion of the visit including all aspects of the following. I personally saw the patient performed chart review, physical exam, reviewed labs, imaging (if obtained), and formulated a treatment and management plan. 72-year-old female here with nausea vomiting abdominal pain after recent travel to [place]. No recent antibiotic use, recent hospitalizations. No melena hematochezia. History of abdominal surgeries. No fever. No chest pain or shortness of breath Exam: Nursing triage notes reviewed, Vital signs reviewed Constitutional: please see mdm HENT: MMM Eyes: Pupils equal round and reactive to light, Extraocular muscles intact Neck: No stridor, no JVD, full neck ROM Lungs: Clear to auscultation, No wheezing or rales. No increased work of breathing, no conversational dyspnea, no accessory muscle use, no nasal flaring. No respiratory distress noted Heart: Regular rate and rhythm, No murmurs, No rubs and No gallops, 2+ distal pulses (radial, femoral, posterior tibial) in all extremities Abdomen: Soft, minimal diffuse tenderness but no rigidity, rebound or guarding, no obvious peritoneal signs, no palpable pulsatile abdominal masses, no auscultated abdominal bruit : No CVAT Extremities: No edema Neuro: No focal neurological deficits, cranial nerves II through XII intact, 5/5 strength in all extremities. Intact sensation to light touch in all extremities, 2+ reflexes bilateral patella dens. Normal gait. No ataxia. Skin: No rash or lesions noted MDM/plan: Chief Complaint: Abdominal pain nausea External records reviewed: No recent imaging, history abdominal surgery I considered the following differential diagnosis: Perforation, obstruction, AAA, gastroenteritis, dehydration, CAROL, hepatobiliary pathology, anemia The patient was hemodynamically stable, afebrile, nontoxic-appearing. Abdominal exam was nonfocal and benign but given the patient advanced age history abdominal surgeries we obtain advanced imaging. Will give symptomatic treatment, flu, Zofran. Will dispo based on labs, images, reassessment, vital sign reassessment, repeat abdominal exam and share decision making Factors affecting care: History of hypothyroidism, history of abdominal surgery Social determinants of health: Former smoker, positive caffeine intake History obtained from others: The patient's Shared decision making: I will have a discussion with the patient and or visitors regarding risk/benefits of further testing or admission. They will be made aware of of the risk/benefits inherent in this decision they will be given the opportunity to voice understanding. Consults: Possibly general surgery if there is any acute intra-abdominal pathology identified Discharge Plan Triage Chief Complaint: Nausea/Vomiting/Diarrhea ED Midlevel Provider: Bobby Escobedo ED Provider: Jamie Mooney Dx/Rx/DC Orders Clinical Impression: Gastroenteritis, Acute dehydration, Acute hypokalemia, Renal cyst, Diverticulum of duodenum Instructions: ED Dehydration (Adult), ED Gastritis (Adult), ED Hypokalemia Prescriptions: New dicyclomine 20 mg tablet 20 mg PO BID Qty: 20 0RF ondansetron 4 mg tablet,disintegrating 4 mg PO Q8H PRN PRN (Reason: Nausea) Qty: 10 0RF No Action verapamil 180 mg capsule,ext rel. pellets 24 hr 180 mg PO QDAY omega-3 fatty acids [Fish Oil Concentrate] 1,000 mg capsule 1,000 mg PO QDAY Label Comments: stopped for procedure calcium carbonate-vitamin D3 [Calcium 600 with Vitamin D3] 600 mg(1,500mg) -400 unit tablet,chewable 1 tab PO QDAY hydrochlorothiazide 25 mg tablet 25 mg PO QAM solifenacin [Vesicare] 5 mg tablet 5 mg PO DAILY clobetasol 0.05 % ointment 1 applic topical .COMPLEX Qty: 15 2RF Rx Instructions: 1 applic topical apply bid X 2 weeks, daily X 2 weeks then prn. Small amount and massge in; azithromycin 250 mg tablet See Rx Instructions PO .COMPLEX Qty: 6 0RF Rx Instructions: For 250 mg dose pack: take 500 mg today (day 1), then 250 mg for 4 days (days 2-5) PO fluticasone propionate [Flovent HFA] 220 mcg/actuation HFA aerosol inhaler 2 puff inhalation BID Qty: 12 6RF ipratropium bromide 21 mcg (0.03 %) spray,non-aerosol 2 spray intranasal BID-TID PRN (Reason: cough) Qty: 30 2RF Rx Instructions: administer 1 spray into each nostril prednisone 20 mg tablet 40 mg PO DAILY Qty: 14 0RF levothyroxine 25 MCG tablet 50 mcg PO DAILY omeprazole 40 mg capsule,delayed release(DR/EC) 40 mg PO BID Qty: 60 2RF Primary Care Provider: Nikky Tabor Referrals: Nikky Tabor DO [Primary Care Provider] - Friend,DO Omar [Med Staff - Active Staff] - Activity Restrictions/Additional Instructions: Please advance her diet as tolerated. Please return for any worsening symptoms. You had some left renal cysts that were actually found on your CAT scan. You had no significant acute pathology. Please maintain hydration and follow-up with your PCP Disposition Disposition: Home, Self Care Discharge Date/Time: 12/19/22 19:06
--- NOTE | 2022-12-19 15:01 | CT_ITS ---
STUDY: CT ABDOMEN AND PELVIS WITH CONTRAST REASON FOR EXAM: Female, 72 years old. abdominal pain RADIATION DOSAGE (If Supplied By Facility): CTDIvol = ( 17.76 ) mGy, DLP = ( 749.43 ) mGycm TECHNIQUE: Transaxial images were obtained from the dome of the diaphragm to the symphysis pubis without oral contrast. IV 100mL Isovue-300 was administered. Sagittal and coronal images were reconstructed. Individualized dose optimization techniques were used for this CT. COMPARISON: None. FINDINGS: The visualized lung bases are unremarkable. The visualized portions of the heart are within normal limits. Granulomatous calcifications in the spleen and liver. Normal gallbladder and extrahepatic biliary system. Normal pancreas. Normal bilateral adrenal glands. Normal right kidney. Up to 3.7 cm cysts in the left kidney. 1 hiatal hernia. There is a probable duodenal diverticulum. Diverticulosis of the colon. The appendix is visualized and appears normal. Calcified abdominal aorta. Normal inferior vena cava. Normal retroperitoneum. Normal urinary bladder. There is a fatty umbilical hernia. Normal osseous structures. CT/Abdomen/Pelvis W IV Cont ONLY IMPRESSION: Duodenal diverticulum. Colonic diverticulosis. Left renal cysts. Small fatty umbilical hernia. Electronically Signed: Colton Calvo DO at 16:24 EDT Reading Location ID and State: [facility] / [place] Tel [phone], Service support ,
[2022-12-19 15:14] LABS: Absolute Lymphocyte Count 0.99 X10^3/uL (0.83-4.51); Absolute Neutrophil Count 14.8 X10^3/uL (2.0-7.7); Basophil# 0.03 X10^3/uL; Basophil% 0.2 % (0-1); Hematocrit 45.8 % (37-47); Hemoglobin 15.3 g/dL (12.0-15.0); Lymphocyte # 0.99 X10^3/ul (0.83-4.51); Mean Corp Hgb Conc 33.4 g/dL (32-36); Mean Corpuscular Hgb 27.8 pg (27.0-32.0); Mean Corpuscular Volume 83.3 fL (81-99); Mean Platelet Vol. 9.9 fl (6.2-12.0); Monocyte# 0.66 X10^3/uL; NRBC Flagged by Analyzer 0 % (0-5); Neutrophil # 14.77 X10^3/uL (2.7-7.7); Neutrophil % 89.4 % (47-70); Platelet Count 373 K/mm3 (150-450); RBC Distribution Width CV 13.2 % (11.6-14.6); RBC Distribution Width SD 40.1 fl (35.1-43.9); White Blood Count 16.5 K/mm3 (4.4-11.0)
[2022-12-19] MEDS: Ondansetron 4 MG/2 ML Vial IV (15:16)
[2022-12-19] MEDS: 0.9% Normal Saline 1,000 ML 1000 ML IV (15:16)
[2022-12-19] MEDS: Dicyclomine 20 MG/2 ML Vial IM (15:17)
[2022-12-19 15:30] LABS: AST(SGOT) 35 U/L (15-37); Alanine Aminotransfer ALT/SGPT 47 U/L (13-56); Alkaline Phosphatase 101 U/L (45-117); Anion Gap 11 (5-15); BUN 22 mg/dL (7-18); BUN/Creat Ratio 21.6 RATIO (10-20); Calcium,Total 9.6 mg/dL (8.5-10.1); Chloride 105 mmol/L (98-107); Creatinine, Serum 1.02 mg/dL (0.55-1.02); EST Glomerular Filtration Rate 57 mL/min (>60); Est Glom Filt Rate - Afr Amer 68 mL/min (>60); Estimated Creatinine Clearance 38.85 ml/min; Glucose 141 mg/dL (74-106); Lipase 27 U/L (13-75); Potassium 2.8 mmol/L (3.5-5.1); Sodium Level 137 mmol/L (136-145)
[2022-12-19] MEDS: Potassium Chloride 10mEq/100mL 10 MEQ/100 ML IV.SOLN. 100 MEQ IV BOLUS ×2 (16:47→17:50)
[2022-12-19] MEDS: 0.9% Normal Saline 1,000 ML 999 ML IV (16:47)
[2022-12-19] MEDS: Potassium Chloride Oral Tablet 20 MEQ 40 MEQ PO (16:49)
[2022-12-19 17:01] VITALS: BP 130/89; PULSE 90; RESP 16; O2SAT 99
--- NOTE | 2022-12-19 18:08 | ED.RN ---
COEL CHAPMAN CHANGED ORDER FROM 40MEQ IV TO 2OMEQ IV. VERBAL ORDER OBTAINED. REMAINING 2 OF 4 BAGS NOT GIVEN.
[2022-12-19 19:02] VITALS: BP 132/87; PULSE 88; RESP 16; O2SAT 99
== END 2022-12-19 19:06 | disposition home or self-care (01) ==
PROVIDERS: Nurse Practitioner; Emergency Provider Emergency Medicine; PCP Internal Medicine; Visit Provider Emergency Medicine
DX: K52.9 Noninfective gastroenteritis and colitis, unspecified (principal); K57.50 Diverticulosis of both small and large intestine without perforation or abscess without bleeding; Z87.891 Personal history of nicotine dependence; E86.0 Dehydration; N28.1 Cyst of kidney, acquired; I10 Essential (primary) hypertension; E87.6 Hypokalemia
CPT/HCPCS: 74177; 80053; 83690; 85025; 96361; 96365; 96366; 96372; 96375; 99283; J7030; Q9967; A4216; J2405

== ENCOUNTER → 2022-12-29 | Outpatient (CLI) | payer MEDICARE, BC, SELFPAY ==
--- NOTE | 2022-12-29 10:46 | BI_ITS ---
MAMMOGRAPHY - BILATERAL SCREENING REASON FOR EXAM: Female, 72 years old. Routine annual screening examination. PERTINENT HISTORY: Non-contributory. Status post left axillary liliane resection. TECHNIQUE: Digital bilateral breast darren (3D mammographic acquisition) in the CC and MLO projections. 2-D mediolateral oblique (MLO) and craniocaudad (CC) views of both breasts were obtained. CAD: Full Field Digital Mammography with Computer Added Detection was performed. COMPARISON: Comparison is made with prior study December 25, 2021 and December 24, 2020. FINDINGS: Breast Composition: The breasts are extremely dense, which lowers the sensitivity of mammography. There are no dominant masses or suspicious calcifications. Stable small benign-appearing right axillary lymph nodes. Stable deformity of the left axillary region. No other significant abnormalities are identified. There has been no significant change since the prior study. BI/SCRN MAMM (CAD)W/DARREN BILAT IMPRESSION: Stable bilateral screening mammogram. Yearly follow-up mammogram recommended. (A) ASSESSMENT CATEGORY: BIRADS Category 2: Benign. A letter regarding these results will be sent to the patient by the facility within 30 days. Approximately 10% of breast cancers are not detected by mammography. A normal mammogram should not delay biopsy of a clinically suspicious abnormality. [id number] Electronically Signed: Sergio Yang MD at 12:08 EDT ,
== END | disposition home or self-care (01) ==
LOC: OPBI 10:45
PROVIDERS: PCP Internal Medicine; Referring Provider Nurse Practitioner Women's Health; Visit Provider Nurse Practitioner Women's Health
DX: Z12.31 Encounter for screening mammogram for malignant neoplasm of breast (principal)
CPT/HCPCS: 77063; 77067

== ENCOUNTER → 2023-01-08 | Outpatient (CLI) | payer MEDICARE, BC, SELFPAY ==
--- NOTE | 2023-01-08 12:57 | RAD_ITS ---
STUDY: X-RAY CHEST REASON FOR EXAM: Female, 72 years old. Recurring cough. TECHNIQUE: PA and lateral views of the chest. COMPARISON: Comparison is made with prior study dated October 23, 2022. FINDINGS: Surgical clips are seen in the left axillary region. The lungs are clear and expanded. There is no demonstrated pleural abnormality. Normal size heart. Normal mediastinum and abril. Normal visualized pulmonary arteries. There is atherosclerotic tortuosity of the aortic arch and descending thoracic aorta. There are degenerative changes of the visualized thoracic spine. Normal visualized ribs, clavicles, and shoulders. There is no demonstrated abnormality of the visualized soft tissue structures of the upper abdomen. RAD/Chest PA and Lateral IMPRESSION: No acute abnormality is seen. There has been no change as compared to prior study. Electronically Signed: Sergio Yang MD at 13:57 EDT ,
[2023-01-08 13:01] LABS: Absolute Lymphocyte Count 2.39 X10^3/uL (0.83-4.51); Absolute Neutrophil Count 4.5 X10^3/uL (2.0-7.7); Basophil# 0.03 X10^3/uL; Basophil% 0.4 % (0-1); Eosinophil# 0.37 X10^3/uL; Eosinophils% 4.6 % (0-5); Hematocrit 39.8 % (37-47); Lymphocyte # 2.39 X10^3/ul (0.83-4.51); Lymphocyte % 29.7 % (19-41); Mean Corp Hgb Conc 32.7 g/dL (32-36); Mean Corpuscular Volume 85.8 fL (81-99); Mean Platelet Vol. 9.2 fl (6.2-12.0); Monocyte# 0.74 X10^3/uL; Monocyte% 9.2 % (0-10); NRBC Flagged by Analyzer 0 % (0-5); Neutrophil # 4.49 X10^3/uL (2.7-7.7); Neutrophil % 55.6 % (47-70); Platelet Count 373 K/mm3 (150-450); RBC Distribution Width CV 13.4 % (11.6-14.6); RBC Distribution Width SD 42.1 fl (35.1-43.9); Red Blood Count 4.64 M/mm3 (4.2-5.4); White Blood Count 8.1 K/mm3 (4.4-11.0)
== END | disposition home or self-care (01) ==
LOC: LAB 12:51
PROVIDERS: PCP Internal Medicine; Referring Provider Internal Medicine; Visit Provider Internal Medicine
DX: I10 Essential (primary) hypertension (principal); R05.3 Chronic cough; D72.829 Elevated white blood cell count, unspecified
CPT/HCPCS: 36415; 71046; 85025

== ENCOUNTER → 2023-04-01 | Outpatient (CLI) | payer MEDICARE, BC, SELFPAY ==
--- NOTE | 2023-04-01 14:01 | BD_ITS ---
STUDY: DUAL ENERGY X-RAY ABSORPTIOMETRY / DXA REASON FOR EXAM: Female, 72 years old. Z78.0 TECHNIQUE: Bone Mineral Density (BMD) measurements of lumbar spine and bilateral hips were obtained. COMPARISON: Comparison is made with prior study dated December 24, 2020. FINDINGS: Lumbar Spine (L1-L4): g/cm2 (1.048) / T-score (0.3) / Z-score (2.5) Findings are suggestive of normal bone density with a low fracture risk. Left Femur Total: g/cm2 (0.883) / T-score (-0.5) / Z-score (1.2) Left Femoral Neck: g/cm2 (0.741) / T-score (-1.0) / Z-score (1.0) Right Femur Total: g/cm2 (0.916) / T-score (-0.2) / Z-score (1.5) Right Femoral Neck: g/cm2 (0.768) / T-score (-0.7) / Z-score (1.3) The T-Scores on the most recent prior examination were: Lumbar Spine (L1-L4): There has been worsening of bone density since the previous examination. Left Femur Total: which represents an improvement of 1.4%. Right Femur Total: which represents a worsening of 4.2%. BD/Dexa Bone Density Study IMPRESSION: The patient is considered normal as outlined below according to World Carroll Organization (WHO) criteria with a low fracture risk. There has been worsening of bone density since the previous examination. Reference Information: The T-score is the number of standard deviations above or below the standard which is normal for young adults at their peak bone mineral density. The World Health Organization (WHO) interprets the T-scores as follows: Above -1 Normal bone density Between -1 and -2.5 Osteopenia Equal to / or below -2.5 Osteoporosis As a practical clinical guideline, osteopenia may be graded as follows: Mild -1 through -1.5 Moderate -1.6 through -2.0 Severe -2.1 through -2.4 The Z-score is the number of standard deviations above or below age-matched controls. A Z-score of less than -1.5 would be considered abnormal. References: 1. NIH Osteoporosis and Related Bone Diseases www osteo.org 2. International Society for Clinical Densitometry www iscd.org 3. National Osteoporosis Foundation www nof.org Electronically Signed: Sergio Yang MD at 12:58 EDT ,
== END | disposition home or self-care (01) ==
LOC: OPBD 13:57
PROVIDERS: PCP Internal Medicine; Referring Provider Internal Medicine; Visit Provider Internal Medicine
DX: Z78.0 Asymptomatic menopausal state (principal)
CPT/HCPCS: 77080

== ENCOUNTER → 2023-04-22 | Outpatient (CLI) | payer MEDICARE, BC, SELFPAY ==
[2023-04-22 13:02] LABS: Absolute Lymphocyte Count 2.22 X10^3/uL (0.83-4.51); Absolute Neutrophil Count 4.4 X10^3/uL (2.0-7.7); Basophil# 0.03 X10^3/uL; Basophil% 0.4 % (0-1); Eosinophil# 0.66 X10^3/uL; Eosinophils% 8.2 % (0-5); Hematocrit 41.6 % (37-47); Hemoglobin 14.3 g/dL (12.0-15.0); Lymphocyte # 2.22 X10^3/ul (0.83-4.51); Lymphocyte % 27.6 % (19-41); Mean Corp Hgb Conc 34.4 g/dL (32-36); Mean Corpuscular Volume 84.4 fL (81-99); Mean Platelet Vol. 9.9 fl (6.2-12.0); Monocyte# 0.69 X10^3/uL; Monocyte% 8.6 % (0-10); NRBC Flagged by Analyzer 0 % (0-5); Neutrophil # 4.42 X10^3/uL (2.7-7.7); Platelet Count 327 K/mm3 (150-450); Red Blood Count 4.93 M/mm3 (4.2-5.4)
[2023-04-25 21:07] LABS: Aspirgillus flavus Negative (Neg:<1:1); Aspirgillus fumigatus Negative (Neg:<1:1); Aspirgillus niger Negative (Neg:<1:1); Cytoplasmic Ab (C-ANCA) <1:20 titer (Neg:<1:20); Immunoglobulin E 114 IU/mL (6-495); Perinuclear Ab (P-ANCA) <1:20 titer (Neg:<1:20)
[2023-04-26 00:06] LABS: Alternaria alternata <0.10 kU/L (Class 0); Bermuda Grass 0.23 kU/L (Class 0/I); Bluegrass, Kentucky 3.61 kU/L (Class III); Cat Hair/Dander, Standard <0.10 kU/L (Class 0); D farinae Mite <0.10 kU/L (Class 0); D pteronyssinus <0.10 kU/L (Class 0); Dog Epithelia <0.10 kU/L (Class 0); Elm, American White <0.10 kU/L (Class 0); Mouse Urine <0.10 kU/L (Class 0); Oak, White <0.10 kU/L (Class 0); Plantain, English <0.10 kU/L (Class 0); Ragweed, Short/Common 0.19 kU/L (Class 0/I)
== END | disposition home or self-care (01) ==
PROVIDERS: PCP Internal Medicine; Referring Provider Nurse Practitioner Acute Care; Visit Provider Nurse Practitioner Acute Care
DX: J30.9 Allergic rhinitis, unspecified (principal); R05.3 Chronic cough
CPT/HCPCS: 36415; 82785; 85025; 86003; 86256; 86606; 87070; 87205

== ENCOUNTER → 2023-05-19 | Outpatient (CLI) | payer MEDICARE, BC, SELFPAY ==
[2023-05-19] MEDS: Methacholine Chloride 18 ml neb kit INHALATION (13:08)
--- NOTE | 2023-05-24 05:45 | BRONCHALL_ITS ---
Bronchoprovocation Challenge Bronchoprovocation Challenge Bronchoprovocation Challenge: Brief HPI: Patient is a 72 year old female, currently under the care of Dr. Frias, who presents to [facility] for a bronchoprovocation study secondary to diagnosis of cough. Respiratory therapist reports good effort and reproducible results. Interpretation: Initial spirometry showed no large airways obstructive ventilatory defect. The patient was then given increasingly concentrated doses of methacholine in a stepwise/standardized fashion, using a modified ATS protocol. The patient?s maximum reduction in FEV1 was 3 percent predicted. Impression: Negative Bronchoprovocation study. This is NOT consistent with the diagnosis of asthma.
== END | disposition home or self-care (01) ==
LOC: PSN 12:52
PROVIDERS: PCP Internal Medicine; Referring Provider Nurse Practitioner Acute Care; Visit Provider Nurse Practitioner Acute Care
DX: R05.3 Chronic cough (principal)
CPT/HCPCS: 94070; 95070

== ENCOUNTER → 2023-09-15 | Outpatient (CLI) | payer MEDICARE, SELFPAY ==
[2023-09-15 09:41] LABS: Absolute Lymphocyte Count 2.48 X10^3/uL (0.83-4.51); Absolute Neutrophil Count 5.3 X10^3/uL (2.0-7.7); Basophil# 0.05 X10^3/uL; Basophil% 0.5 % (0-1); Eosinophil# 0.52 X10^3/uL; Eosinophils% 5.7 % (0-5); Hematocrit 43.3 % (37-47); Lymphocyte # 2.48 X10^3/ul (0.83-4.51); Lymphocyte % 27.1 % (19-41); Mean Corp Hgb Conc 32.3 g/dL (32-36); Mean Corpuscular Hgb 27.7 pg (27.0-32.0); Mean Corpuscular Volume 85.6 fL (81-99); Mean Platelet Vol. 9.3 fl (6.2-12.0); Monocyte# 0.78 X10^3/uL; Monocyte% 8.5 % (0-10); NRBC Flagged by Analyzer 0 % (0-5); Neutrophil # 5.27 X10^3/uL (2.7-7.7); Neutrophil % 57.8 % (47-70); Platelet Count 347 K/mm3 (150-450); RBC Distribution Width CV 12.8 % (11.6-14.6); RBC Distribution Width SD 39.8 fl (35.1-43.9); Red Blood Count 5.06 M/mm3 (4.2-5.4); White Blood Count 9.1 K/mm3 (4.4-11.0)
== END | disposition home or self-care (01) ==
PROVIDERS: PCP Internal Medicine; Referring Provider Nurse Practitioner Acute Care; Visit Provider Nurse Practitioner Acute Care
DX: J30.9 Allergic rhinitis, unspecified (principal)
CPT/HCPCS: 36415; 85025

== ENCOUNTER → 2023-12-31 | Outpatient (CLI) | payer OTHER, MEDICARE, SELFPAY ==
--- NOTE | 2023-12-31 09:38 | BI_ITS ---
MAMMOGRAPHY - BILATERAL SCREENING REASON FOR EXAM: Female, 73 years old. Routine annual screening examination. PERTINENT HISTORY: Non-contributory. TECHNIQUE: Digital bilateral breast darren (3D mammographic acquisition) in the CC and MLO projections. 2-D mediolateral oblique (MLO) and craniocaudad (CC) views of both breasts were obtained. CAD: Full Field Digital Mammography with Computer Added Detection was performed. COMPARISON: Comparison is made with prior study dated December 29, 2022 and December 25, 2021. FINDINGS: Breast Composition: The breasts are extremely dense, which lowers the sensitivity of mammography. There are no dominant masses or suspicious calcifications. Stable benign-appearing bilateral axillary lymph nodes. No other significant abnormalities are identified. There has been no significant change since the prior study. BI/SCRN MAMM (CAD)W/DARREN BILAT IMPRESSION: Stable bilateral screening mammogram. Yearly follow-up mammogram recommended. (A) ASSESSMENT CATEGORY: BIRADS Category 1: Negative. A letter regarding these results will be sent to the patient by the facility within 30 days. Approximately 10% of breast cancers are not detected by mammography. A normal mammogram should not delay biopsy of a clinically suspicious abnormality. [id number] Electronically Signed: Sergio Yang MD at 10:43 EDT ,
== END | disposition home or self-care (01) ==
LOC: OPBI 09:38
PROVIDERS: PCP Internal Medicine; Referring Provider Nurse Practitioner Women's Health; Visit Provider Nurse Practitioner Women's Health
DX: Z12.31 Encounter for screening mammogram for malignant neoplasm of breast (principal)
CPT/HCPCS: 77063; 77067

== ENCOUNTER → 2025-01-02 | Outpatient (CLI) | payer OTHER, MEDICARE, SELFPAY ==
--- NOTE | 2025-01-02 09:56 | BI_ITS ---
EXAM: SCRN MAMM (CAD)W/DARREN BILAT 01/02/2025 CLINICAL HISTORY: F, Age 74 y/o , SCREENING FOR BREAST CANCER TECHNIQUE: Bilateral screening digital breast tomosynthesis with 2D and 3D images. Computer aided detection. COMPARISON: Prior exam(s) dated 12/31/2023, 12/29/2022, 12/25/2021, 12/24/2020. FINDINGS: TISSUE DENSITY: The breast tissue is heterogenously dense, which may obscure small masses. The mammogram demonstrates that the patient has dense breasts. Supplemental screening with whole breast ultrasound or MRI may be considered for further evaluation. Bilateral Breast Mammographic Findings: No significant masses, calcifications or other abnormalities are identified. BI/SCRN MAMM (CAD)W/DARREN BILAT IMPRESSION: Right Breast: BIRADS 1 NEGATIVE. Left Breast: BIRADS 1 NEGATIVE. OVERALL FINAL ASSESSMENT: BIRADS 1 NEGATIVE. RECOMMENDATION: Routine annual follow-up in 1 Year A letter with findings and recommendations will be mailed to the patient. Reading Location: [id number]
== END | disposition home or self-care (01) ==
LOC: OPBI 09:55
PROVIDERS: PCP Internal Medicine; Referring Provider Nurse Practitioner Women's Health; Visit Provider Nurse Practitioner Women's Health
DX: Z12.31 Encounter for screening mammogram for malignant neoplasm of breast (principal)
CPT/HCPCS: 77063; 77067

== ENCOUNTER → 2025-04-03 | Outpatient (CLI) | payer MEDICARE, SELFPAY ==
--- NOTE | 2025-04-03 09:36 | BD_ITS ---
PROCEDURE: DEXA BONE DENSITY STUDY 04/03/2025 REASON FOR EXAM: F, age 74 y/o . Postmenopausal. TECHNIQUE: DEXA BONE DENSITY STUDY COMPARISON: Prior study dated April 01, 2023. FINDINGS: BMD and T-SCORES Lumbar spine: 1.071 g/cm2, T-score 0.5 Levels: L1 through L4 Change from prior: Improvement of 2.2%. Left femoral neck: 0.678 g/cm2, T-score -1.5 Femoral neck comparison data not recommended for monitoring change. Left total hip: 0.859 g/cm2, T-score -0.7 Change from prior: Worsening of 2.8%. Right femoral neck: 0.709 g/cm2, T-score -1.3 Femoral neck comparison data not recommended for monitoring change. Right total hip: 0.890 g/cm2, T-score -0.4 Change from prior: Loss of 2.8%. The World Health Organization has defined the following categories based on bone density: Normal bone density: T-score equal to or greater than -1.0 Osteopenia: T-score between -1.0 and -2.5 Osteoporosis: T-score equal to or less than -2.5 The patient does meet the pharmacological treatment recommendations for prevention of osteoporosis. BD/Dexa Bone Density Study IMPRESSION: OSTEOPENIA. Recommend follow-up as clinically warranted. Reading Location: [id number]
== END | disposition home or self-care (01) ==
PROVIDERS: PCP Internal Medicine; Referring Provider Internal Medicine; Visit Provider Internal Medicine
DX: Z78.0 Asymptomatic menopausal state (principal); M85.80 Other specified disorders of bone density and structure, unspecified site
CPT/HCPCS: 77080

== ENCOUNTER → 2025-07-23 | Outpatient (CLI) | payer MEDICARE, SELFPAY ==
[2025-07-23 09:26] LABS: Mucous, Urine 0 SEEN /hpf (<or=2+); Red Blood Cells-Urine 0 SEEN /hpf (0-5)
[2025-07-23 10:29] LABS: Color, Urine Yellow (Yellow); Glucose, Dipstick Normal (Normal); Ketone-Dipstick Negative (Negative); Leukocyte Esterase-Dipstick Negative /ul (Negative); Nitrite-Dipstick Negative (Negative); Occult Blood-Urine Negative /ul (Negative); Protein-Dipstick Negative (Negative); Specific Gravity, Urine 1.010 (1.002-1.030); Urine Bilirubin Dipstick Negative (Negative)
[2025-07-23 10:34] LABS: Hematocrit 43.4 % (37-47); Hemoglobin 14.4 g/dL (12.0-15.0); Immature Granulocytes Count 0.020 X10^3/uL (0.0-0.0); Mean Corp Hgb Conc 33.2 g/dL (32-36); Mean Corpuscular Volume 86.1 fL (81-99); Mean Platelet Vol. 9.6 fl (6.2-12.0); NRBC Flagged by Analyzer 0 % (0-5); Platelet Count 377 K/mm3 (150-450); RBC Distribution Width CV 12.7 % (11.6-14.6); RBC Distribution Width SD 39.4 fl (35.1-43.9); Red Blood Count 5.04 M/mm3 (4.2-5.4); White Blood Count 6.3 K/mm3 (4.4-11.0)
[2025-07-23 10:36] LABS: Squamous Epithelial Cells - UA 0-5 SEEN /hpf (5-10)
[2025-07-23 11:02] LABS: Creatinine, Urine (random) 69.40 mg/dL (28.00-217.00); Microalbumin,Random Urine < 12.0 mg/L (<20 mg/L)
[2025-07-23 11:17] LABS: AST(SGOT) 21 U/L (<=31); Alanine Aminotransfer ALT/SGPT 15 U/L (<=34); Albumin, Serum 4.3 g/dL (3.4-4.8); Alkaline Phosphatase 80 U/L (35-104); Anion Gap 11 (5-15); BUN 17 mg/dL (4-19); BUN/Creat Ratio 27.8 RATIO (10-20); Calcium,Total 9.8 mg/dL (7.6-11.0); Carbon Dioxide 24.0 mmol/L (21.0-32.0); Chloride 104 mmol/L (98-108); Cholesterol 164 mg/dL (<=200); Free T3 2.9 pg/mL (2.18-3.98); Globulin 2.6 g/dL (2.2-4.2); Glucose 100 mg/dL (70-99); Low Density Lipoprotein Calc. 85 mg/dL; Potassium 4.0 mmol/L (3.3-5.1); Triglycerides 65 mg/dL; Very Low Density Lipoprotein 13 mg/dL (5-40); cholesterol:hdl ratio screen 2.46
== END | disposition home or self-care (01) ==
LOC: CIMLAB 09:24
PROVIDERS: PCP Internal Medicine; Referring Provider Internal Medicine; Visit Provider Internal Medicine
DX: I10 Essential (primary) hypertension (principal); E03.9 Hypothyroidism, unspecified; I49.9 Cardiac arrhythmia, unspecified
CPT/HCPCS: 36415; 80053; 80061; 81001; 82043; 82570; 84443; 84481; 85025

== ENCOUNTER → 2025-07-30 | Outpatient (CLI) | payer MEDICARE, SELFPAY ==
--- OUTSIDE RECORDS SUMMARY | 2025-07-30 07:00 | XMS RPT_ITS | CCD ---
Author Organization [facility] Care Team Providers Care Shift Commander Name Role Phone Nikky Tabor Unavailable Onofre Lenz Unavailable Madi Saez Unavailable Messenger, Kathy Unavailable Unavailable Tyrell, Cece Unavailable Unavailable Flshazia Kathya Unavailable Unavailable Unavailable Unavailable Nikky Tabor Unavailable Onofre Lenz Unavailable Madi Saez Unavailable Messenger, Kathy Unavailable Unavailable Slarb, Ashley Unavailable Unavailable Tyrell, Cece Unavailable Unavailable Flinner, Kathya Unavailable Unavailable Unavailable Unavailable JOHAN DIAZ DPM Admitting Unavailable OJHAN DIAZ DPM Attending Unavailable JOHAN DIAZ DPM Primary Care Unavailable JOHAN DIAZ DPM Consulting Unavailable PROVIDER, UNKNOWN Consulting Unavailable PROVIDER, UNKNOWN Consulting Unavailable Adama Downey Unavailable Unavailable Gravius, Tamela Unavailable Unavailable Messenger, Kathy Unavailable Unavailable CiesaSamantha E Unavailable Adama Alonso Unavailable Unavailable Peter, Millie Unavailable Unavailable Antwan Coral Unavailable Unavailable ZEINAB Camacho Unavailable Unavailable Madi Saez P Unavailable Nikky Tabor DO Unavailable Onofre Lenz MD Unavailable Madi Saez MD Unavailable Coral Moncada LPN Unavailable Unavailable Gravius SUGAR CANE PLANTER, Tamela Unavailable Unavailable Messenger RN, Kathy Unavailable Unavailable Slarb GILL BOX FIXER, Ashley Unavailable Unavailable Flinner, Kathya Unavailable Unavailable Unavailable Unavailable Nikky Tabor DO Unavailable Yoanna NEELY, Onofre Unavailable Nadja NEELY, Madi Zaragoza Unavailable Antwan GILL BOX FIXER, Coral Unavailable Unavailable Gravius SUGAR CANE PLANTER, Tamela Unavailable Unavailable Nicole RN, Kathy Unavailable Unavailable Slanishi GILL BOX FIXER, Ashley Unavailable Unavailable Flinner, Kathya Unavailable Unavailable Unavailable Unavailable Peter GILL BOX FIXER, Millie Unavailable Unavailable Doug GILL BOX FIXER, ZEINAB Unavailable Unavailable Dr. Nikky Tabor Primary Care Provider [phone] Dr. Nikky Tabor Referring Provider Marquis SOFT BOARDER, SOFT BOARDER-C Anna Attending Provider [phone] Nikky Tabor DO Unavailable Jeanine NEELY, Felisha Franklin Unavailable Mary Lenz Primary Care Provider José PATRICIA, Hue Unavailable [phone] [facility], [facility] Unavailable Slick ROBERT, Brittnee Unavailable Unavailable Carroll SUGAR CANE PLANTER, Kayela Unavailable Unavailable Gavin LEONN, Adama Unavailable Unavailable Tanner Marquez Unavailable Dr. Nikky Tabor Primary Care Provider [phone] Dr. Nikky Tabor Referring Provider Marquis SOFT BOARDER, JILL-C Anna Attending Provider [phone] Dr. Nikky Tabor Other Provider Dr. Clemente Frias Attending Provider [phone] Dr. Scott Tran Attending Provider [phone] Dr. Nikky Tabor Primary Care Provider [phone] Dr. Nikky Tabor Referring Provider Marquis SOFT BOARDER, JILL-Caitlin Castillo Attending Provider [phone] Dr. Nikky Tabor Other Provider Dr. Clemente Frias Attending Provider [phone] Dr. Scott Tran Attending Provider Nikky Tabor DO Attending Unavailable Sharona CARRASQUILLO, Nikky Consulting Unavailable Nikky Tabor DO Referring Unavailable Dr. Nikky Tabor Primary Care Provider Dr. Nikky Tabor Referring Provider Dr. Scott Tran Attending Provider Giancarlo SOFT BOARDER, SOFT BOARDER-C Leda Attending Provider Dr. Nikky Tabor Primary Care Provider Dr. Nikky Tabor Referring Provider Dr. Scott Tran Attending Provider Mondragon SOFT BOARDER, SOFT BOARDER-C Leda Referring Provider Giancarlo SOFT BOARDER, SOFT BOARDER-C Leda Other Provider Dr. Tanner Marquez Attending Provider Dr. Nikky Tabor Primary Care Provider Giancarlo SOFT BOARDER, SOFT BOARDER-C Leda Referring Provider Giancarlo SOFT BOARDER, SOFT BOARDER-C Leda Other Provider Dr. Tanner Marquez Attending Provider Dr. Nikky Tabor Referring Provider Dr. Clemente Frias Attending Provider Giancarlo SOFT BOARDER, SOFT BOARDER-C Leda Attending Provider Dr. Nikky Tabor Primary Care Provider Dr. Nikky Tabor Referring Provider Marquis SOFT BOARDER, SOFT BOARDER-C Anna Attending Provider Giancarlo SOFT BOARDER, SOFT BOARDER-C Leda Attending Provider Dr. Nikky Tabor DO Primary Care Provider Marquis SOFT BOARDER-CAnna Attending Provider Milton SOFT BOARDER-C, Anna Referring Provider Marcelle NEELY, Dr. Sutton Attending Provider Sharona CARRASQUILLO, Dr. Sher Attending Provider [phone] Dr. Nikky Tabor DO Referring Provider [phone] Marquis SOFT BOARDER, Anna Attending Unavailable Sharona, Nikky Primary Care Unavailable Sharona, Nikky Referring Unavailable Sharona, Nikky Primary Care Unavailable Sharona, Nikky Attending Unavailable Sharona, Nikky Referring Unavailable Sharona, Nikky Primary Care Unavailable Marquis SOFT BOARDER, Anna Attending Unavailable Marquis SOFT BOARDER, Anna Referring Unavailable Sharona, Nikky Primary Care Unavailable Giancarlo SOFT BOARDER, Leda Attending Unavailable Sharona, Nikky Referring Unavailable Sharona, Nikky Referring Unavailable Mondragon SOFT BOARDER, Leda Attending Unavailable Shraona, Nikky Primary Care Unavailable Allergies Allergy Classification Reported Allergen(s) Allergy Type Date of Onset Reaction(s) Facility Unclassified (1 source) Allergy to substance (finding) [facility] Work Phone: (1 source) allergy to substance [facility] Work Phone: (1 source) allergy to substance [facility] Work Phone: (1 source) allergy to substance [facility] Work Phone: (1 source) allergy to substance [facility] Work Phone: (20 sources) Spring & summer hay fever allergy to substance [facility] Work Phone: (1 source) Allergy to substance (finding) [facility]; [facility] Work Phone: (1 source) Allergy to substance (finding) [facility]; [facility] Work Phone: (1 source) Allergy to substance (finding) [facility]; [facility] Work Phone: (1 source) Allergy to substance (finding) [facility]; [facility] Work Phone: (1 source) Allergy to substance (finding) [facility]; [facility] Work Phone: (1 source) Allergy to substance (finding) [facility]; [facility] Work Phone: (1 source) Allergy to substance (finding) [facility]; [facility] Work Phone: (1 source) Allergy to substance (finding) [facility]; [facility] Work Phone: (1 source) Allergy to substance (finding) [facility]; [facility] Work Phone: (1 source) Allergy to substance (finding) [facility]; [facility] Work Phone: (1 source) Allergy to substance (finding) [facility]; [facility] Work Phone: (1 source) Allergy to substance (finding) [facility]; [facility] Work Phone: (1 source) Allergy to substance (finding) [facility]; [facility] Work Phone: (1 source) Allergy to substance (finding) [facility]; [facility] Work Phone: (1 source) Allergy to substance (finding) [facility]; [facility] Work Phone: (1 source) Allergy to substance (finding) [facility]; [facility] Work Phone: (1 source) Allergy to substance (finding) [facility]; [facility] Work Phone: (1 source) Allergy to substance (finding) [facility]; [facility] Work Phone: (1 source) Allergy to substance (finding) [facility]; [facility] Work Phone: (1 source) Allergy to substance (finding) [facility]; [facility] Work Phone: (1 source) Allergy to substance (finding) [facility]; [facility] Work Phone: (1 source) Allergy to substance (finding) [facility]; [facility] Work Phone: (1 source) Allergy to substance (finding) [facility]; [facility] Work Phone: (1 source) Allergy to substance (finding) [facility]; [facility] Work Phone: (1 source) Allergy to substance (finding) [facility]; [facility] Work Phone: (1 source) Allergy to substance (finding) [facility]; [facility] Work Phone: (1 source) Allergy to substance (finding) [facility]; [facility] Work Phone: (1 source) Allergy to substance (finding) [facility]; [facility] Work Phone: (1 source) Allergy to substance (finding) [facility]; [facility] Work Phone: (1 source) Allergy to substance (finding) [facility]; [facility] Work Phone: Medications Current Medications Medication Drug Class(es) Dates Sig (Normalized) Sig (Original) Budesonide-Formoter ol (3 sources) Corticosteroid, beta2-Adrenergic Agonist Start: 07-06-2023 Budesonide-Formote rol (Symbicort) 160-4.5 mcg/actuation HFA aerosol inhaler Active 2 NMA INHALATION TWICE A DAY 10.2 6 July 06, 2023 12:00am Start: 07-06-2023 take 1 puff(s) by in halation twice daily Budesonide-Formoterol (Symbicort) 160-4.5 mcg/actuation HFA aerosol inhaler Active 2 PUFF INHALATION TWICE A DAY 10.2 July 06, 2023 12:00am Start: 07-06-2023 take 1 puff(s) by in halation twice daily Budesonide-Formoterol (Symbicort) 160-4.5 mcg/actuation HFA aerosol inhaler Active 2 PUFF INHALATION TWICE A DAY 10.2 July 05, 2023 11:00pm calcium carbonate 1500 mg / cholecalciferol 800 unt chewable tablet (16 sources) Vitamin D Start: 11-16-2017 Calcium Carbon ate-Vitamin D3 (Calcium 600 With Vitamin D3) 600 mg(1,500mg) -400 unit tablet,chewable Active 1 {tbl} PO daily 0 November 16, 2017 12:00am Start: 11-16-2017 take 1 tablet by once daily Calcium Carbonate-Vitamin D3 (Calcium 600 With Vitamin D3) 600 mg(1,500mg) -400 unit tablet,chewable Active 1 TABLET PO daily November 16, 2017 12:00am cetirizine hydrochloride 10 mg oral tablet (20 sources) Histamine-1 Receptor Antagonist Start: 08-18-2023 take 1 tablet by mouth once daily as needed Cetirizine 10 mg tablet Active 10 mg PO DAILY as needed for allergy symptoms 90 August 18, 2023 1:00am Start: 02-07-2015 End: 05-19-2018 clobetasol propionate 0.0005 mg/mg topical ointment (20 sources) Corticosteroid Start: 10-16-2024 Clobetasol 0.0 5 % ointment Active 1 NMA TOPICAL .COMPLEX 15 2 October 16, 2024 12:28pm Small amount and massage in daily up to 5 days prn with symptoms Start: 10-06-2021 End: 10-16-2024 Clobetasol 0.05 % ointment D iscontinued 1 NMA TOPICAL .COMPLEX 15 2 October 07, 2022 12:03pm October 16, 2024 12:29pm 1 applic topical apply bid X 2 weeks, daily X 2 weeks then prn. Small amount and massge in; estradiol 0.1 mg/ml vaginal cream (2 sources) Estrogen Start: 10-12-2023 Estradiol 0.01 % (0.1 mg/gram) cream Active 0 VAGINAL .COMPLEX 42.5 2 October 12, 2023 1:00am small amount as directed vaginal every other day X 4 weeks then twice a week; Start: 10-12-2023 Estradiol Acti ve 0 VAGINAL .COMPLEX 42.5 October 12, 2023 1:00am small amount as directed vaginal every other day X 4 weeks then twice a week; fluticasone propionate 0.05 mg/actuat metered dose nasal spray (3 sources) Corticosteroid Start: 08-18-2023 Fluticasone Pr opionate 50 mcg/actuation spray,suspension Active 2 NMA INTRANASAL DAILY 16 August 18, 2023 1:00am Start: 08-18-2023 Fluticasone Pr opionate Active 2 SPRAY INTRANASAL DAILY August 18, 2023 1:00am Ipratropium (11 sources) Anticholinergic Start: 10-22-2022 Ipratropium Br omide Active 2 SPRAY INTRANASAL 2 to 3 times per day October 22, 2022 1:00am administer 1 spray into each nostril Start: 10-22-2022 Ipratropium Br omide Active 2 SPRAY INTRANASAL 2 to 3 times per day October 22, 2022 12:00am administer 1 spray into each nostril Ipratropium Andrews 21 mcg (0.03 %) spray,non-aerosol (1 source) Start: 10-22-2022 Ipratropium Andrews 21 mcg (0.03 %) spray,non-aerosol Active 2 NMA INTRANASAL 2 to 3 times per day as needed for cough 30 October 22, 2022 1:00am administer 1 spray into each nostril 1 ml mepolizumab 100 mg/ml auto-injector (3 sources) Interleukin-5 Antagonist Start: 09-15-2023 Mepolizumab (Nucala) 100 mg/mL auto-injector Active 100 mg SC every 4 weeks 09 16September 15, 2023 1:00am montelukast 10 mg oral tablet (3 sources) Leukotriene Receptor Antagonist Start: 08-18-2023 take 1 tablet by mouth once daily in the evening Montelukast 10 mg tablet Active 10 mg PO EVERY EVENING August 18, 2023 1:00am Bartley-3 Fatty Acids (Fish Oil Concentrate) 1,000 mg capsule (16 sources) Start: 11-16-2017 take 1 capsule by mouth once daily Bartley-3 Fatty Acids (Fish Oil Concentrate) 1,000 mg capsule Active 1000 MG PO daily November 16, 2017 9:47am Start: 11-16-2017 End: 03-16-2023 take 1 capsule by mouth once daily Bartley-3 Fatty Acids (Fish Oil Concentrate) 1,000 mg capsule Discontinued 1000 mg PO daily November 16, 2017 12:00am March 16, 2023 10:13am Start: 11-16-2017 End: 03-16-2023 take 1 capsule by mouth once daily Bartley-3 Fatty Acids (Fish Oil Concentrate) 1,000 mg capsule Discontinued 1000 MG PO daily November 15, 2017 11:00pm March 16, 2023 9:13am Start: 11-16-2017 End: 03-16-2023 take 1 capsule by mouth once daily Bartley-3 Fatty Acids (Fish Oil Concentrate) 1,000 mg capsule Discontinued 1000 MG PO daily November 16, 2017 12:00am March 16, 2023 10:13am Start: 11-16-2017 take 1 capsule by mo [facility] once daily Bartley-3 Fatty Acids (Fish Oil Concentrate) 1,000 mg capsule Active 1000 MG PO daily November 16, 2017 12:00am Start: 11-16-2017 take 1 capsule by [facility] once daily Bartley-3 Fatty Acids (Fish Oil Concentrate) 1,000 mg capsule Active 1000 MG PO daily November 15, 2017 11:00pm Vibegron (1 source) Start: 10-05-2024 [facility] Vibegron (Gemtesa) 75 mg tablet Active 75 mg PO daily October 05, 2024 1:00am Completed/Discontinued Medications Medication Drug Class(es) Dates Sig (Normalized) Sig (Original) acetaminophen 300 mg / codeine phosphate 30 mg oral tablet (1 source) Opioid Agonist Start: 12-04-2015 take 1-2 tablets by mouth every four hours as needed acetaminophen-cod eine (TYLENOL-CODEINE #3) 300-30 mg per tablet Take 1-2 tablets by mouth every 4 hours as needed. 30 tablet 0 12/04/2015 Active Comment on above: Take 1-2 tablets by mouth every 4 hours as needed. [id number] 200 actuat albuterol 0.09 mg/actuat metered dose inhaler (20 sources) beta2-Adrenergic Agonist Start: 08-14-2022 Start: 06-14-2018 End: 06-21-2018 Start: 06-14-2018 End: 06-21-2018 take 2 puff(s) by inhalation three times daily ProAir HFA 108 (90 Base) MCG/ACT Inhalation Aerosol Solution 2 (two) Puff TID for 7 days Quantity: 1 {Inhaler} Refills: 0 Ordered: 14-Jun-2018 Samantha Roland CNP Start : 14-Jun-2018 End : 21-Jun-2018 Inactive Start: 06-14-2018 End: 06-21-2018 take 2 puff(s) by inhalation three times daily ProAir HFA 108 (90 Base) MCG/ACT Inhalation Aerosol Solution 2 (two) Puff TID for 7 days Quantity: 1 {Inhaler} Refills: 0 Ordered: 14-Jun-2018 Samantha Roland CNP Start : 14-Jun-2018 End : 21-Jun-2018 Inactive amoxicillin 875 mg / clavula darcy 125 mg oral tablet (20 sources) Penicillin-class Antibacterial Start: 07-15-2022 End: 07-25-2022 Start: 05-19-2016 End: 05-26-2016 Start: 05-19-2016 End: 05-26-2016 take 1 tablet by mouth twice daily Augmentin 875-125 MG Oral Tablet 1 (one) Tablet two times daily for 7 days Quantity: 14 {Tablet} Refills: 0 Ordered: 19-May-2016 Onofre Lenz MD Start : 19-May-2016 End : 26-May-2016 Inactive ascorbic acid 1000 mg oral tablet (20 sources) Comment on above: Take 1,000 mg by lore th once daily. azithromycin 250 mg oral tablet (20 sources) Macrolide Antimicrobial Start: 10-22-2022 End: 03-16-2023 Azithromycin 250 mg tablet Discontinued 0 PO .COMPLEX 6 0 October 22, 2022 1:00am March 16, 2023 10:12am For 250 mg dose pack: take 500 mg today (day 1), then 250 mg for 4 days (days 2-5) PO Start: 10-22-2022 End: 03-16-2023 Azithromycin Discontinued 0 PO .COMPLEX 6 October 22, 2022 1:00am March 16, 2023 10:12am For 250 mg dose pack: take 500 mg today (day 1), then 250 mg for 4 days (days 2-5) PO Start: 07-06-2022 End: 07-15-2022 Start: 09-12-2019 End: 11-16-2019 Start: 09-12-2019 End: 11-16-2019 Zithromax Z-Liliana 250 MG Oral Tablet 2 (two) Tablet today then qd for 4 days for 0 days Quantity: 1 {Package} Refills: 0 Ordered: 16-Nov-2019 Tamela Bang CMA Start : 12-Sep-2019 End : 16-Nov-2019 Inactive Start: 02-01-2015 End: 02-07-2015 ZITHROMAX Z-LILIANA, 250MG (Oral Tablet) 2 (two) Tablet today then qd for 4 days for 0 days Quantity: 1 {Package} Refills: 0 Ordered: 07-Feb-2015 ZEINAB Camacho Start : 01-Feb-2015 End : 07-Feb-2015 Inactive B complex (20 sources) B complex Inacti ve B-Complex With Vitamin C (Super B Complex-Vitamin C) tablet (16 sources) Start: 11-16-2017 End: 07-15-2020 take 2 tablets by mouth once daily B-Complex With Vitamin C (Super B Complex-Vitamin C) tablet Discontinued 2 TABLET PO daily November 16, 2017 9:50am July 15, 2020 9:15am Start: 11-16-2017 End: 07-15-2020 B-Complex With Vitamin C (Jean per B Complex-Vitamin C) tablet Discontinued 2 {tbl} PO daily November 16, 2017 12:00am July 15, 2020 9:15am Start: 11-16-2017 End: 07-15-2020 take 2 tablets by mouth once daily B-Complex With Vitamin C (Super B Complex-Vitamin C) tablet Discontinued 2 TABLET PO daily November 16, 2017 12:00am July 15, 2020 9:15am Start: 11-16-2017 End: 07-15-2020 take 2 tablets by mouth once daily B-Complex With Vitamin C (Super B Complex-Vitamin C) tablet Discontinued 2 TABLET PO daily November 15, 2017 11:00pm July 15, 2020 8:15am benzonatate 100 mg oral caps ule (20 sources) Non-narcotic Antitussive Start: 09-08-2016 End: 11-16-2017 Start: 10-29-2014 End: 02-01-2015 calcium (20 sources) Phosphate Binder, Calcium Start: 05-12-2013 Start: 05-12-2013 take 2 tablets by [facility] once daily CALCIUM, 600MG (Oral Tablet) 2 (two) Tablet QD for 0 days Quantity: 60 {Tablet} Refills: 0 Ordered: 12-May-2013 Felisha Solorzano MD Start : 12-May-2013 Active calcium carbonate 1500 mg oral tablet (17 sources) Start: 05-12-2013 Calcium Carbonate / vitamin D3 (1 source) CALCIUM CARBONATE/VITAMIN D3 (CALCIUM 600 + D ORAL) Take by mouth. 0 Active Comment on above: Take by mouth. 60 actuat ciclesonide 0.16 mg/actuat metered dose inhaler (11 sources) Start: 10-07-2022 clarithromycin 500 mg oral tablet (20 sources) Macrolide Antimicrobial Start: 05-07-2016 End: 05-19-2016 codeine phosphate 2 mg/ml / guaiFENesin 20 mg/ml oral solution (20 sources) Opioid Agonist Start: 06-14-2018 End: 07-04-2018 Start: 06-14-2018 End: 07-04-2018 take 4 mL by mouth every six hours as needed Cheratussin AC 100-10 MG/5ML Oral Syrup 4 Milliliter q 6 hr prn for 0 days Quantity: 120 {Milliliter} Refills: 0 Ordered: 04-Jul-2018 Kathy Rivera RN Start : 14-Jun-2018 End : 04-Jul-2018 Inactive Comments: ninety ml Start: 03-31-2016 End: 04-05-2016 Start: 03-31-2016 End: 04-05-2016 take 1-2 [tsp_us] by mouth once daily at bedtime as needed for cough Cheratussin AC 100-10 MG/5ML Oral Solution 1-2 Teaspoon qhs prn cough for 5 days Quantity: 6 {Ounce} Refills: 0 Ordered: 31-Mar-2016 Onofre Lenz MD Start : 31-Mar-2016 End : 05-Apr-2016 Inactive Comment on above: ninety ml desloratadine 5 mg oral tablet (20 sources) Histamine-1 Receptor Antagonist Start: 04-08-20 16 End: 04-15-20 16 dicyclomine hydrochloride 20 mg oral tablet (9 sources) Anticholinergic Start: 12-20-19 23 End: 03-16-20 23 take 1 tablet by mouth twice daily Dicyclomine 20 mg tablet Discontinued 20 mg PO TWICE A DAY December 19, 2022 12:00am March 16, 2023 10:13am 24 hr dilTIAZem hydrochloride 180 mg extended release oral capsule (20 sources) Calcium Channel Manuel Start: 10-11-19 18 End: 11-11-19 18 Start: 10-19-2015 diltiazem CD ( CARDIZEM CD, CARTIA XT) 180 mg 24 hr capsule Start: 02-03-2011 End: 02-05-2011 Start: 06-11-2009 End: 09-20-2009 Comment on above: This order discontin ued per [facility]. Mail order. diphenhydrAMINE hydrochloride 25 mg oral tablet (20 sources) Histamine-1 Receptor Antagonist Start: 05-19-20 End: 05-24-20 doxycycline hyclate 100 mg oral capsule (20 sources) Tetracycline-class Drug Start: 01-09-20 End: 03-16-20 take 1 capsule by mouth twice daily Doxycycline Hyclate 100 mg capsule Discontinued 100 mg PO TWICE A DAY January 08, 2023 12:00am March 16, 2023 10:13am Start: 12-09-2015 End: 12-19-2015 Fluticasone Propionate (Flov ent Hfa) 220 mcg/actuation HFA aerosol inhaler (12 sources) Start: 10-22-2022 End: 04-22-2023 Fluticasone Propionate (Flov ent Hfa) 220 mcg/actuation HFA aerosol inhaler Discontinued 2 NMA INHALATION TWICE A DAY 08 11October 22, 2022 1:00am April 22, 2023 11:14am Chronic cough Chronic cough cough Start: 10-22-2022 End: 04-22-2023 take 1 puff(s) by inhalation twice daily Fluticasone Propionate (Flovent Hfa) 220 mcg/actuation HFA aerosol inhaler Discontinued 2 PUFF INHALATION TWICE A DAY October 22, 2022 12:00am April 22, 2023 10:14am Start: 10-22-2022 End: 04-22-2023 take 1 puff(s) by inhalation twice daily Fluticasone Propionate (Flovent Hfa) 220 mcg/actuation HFA aerosol inhaler Discontinued 2 PUFF INHALATION TWICE A DAY October 22, 2022 1:00am April 22, 2023 11:14am Start: 10-22-2022 take 1 puff(s) by in halation twice daily Fluticasone Propionate (Flovent Hfa) 220 mcg/actuation HFA aerosol inhaler Active 2 PUFF INHALATION TWICE A DAY October 22, 2022 1:00am Start: 10-22-2022 take 1 puff(s) by in halation twice daily Fluticasone Propionate (Flovent Hfa) 220 mcg/actuation HFA aerosol inhaler Active 2 PUFF INHALATION TWICE A DAY October 22, 2022 12:00am 120 actuat formoterol fumarate 0.005 mg/actuat / mometasone furoate 0.1 mg/actuat metered dose inhaler (20 sources) Corticosteroid, beta2-Adrenergic Agonist Start: 05-07-2016 End: 05-19-2018 Start: 05-07-2016 End: 05-19-2018 Start: 05-07-2016 End: 05-19-2018 Dulera 100-5 MCG/ACT Inhalat ion Aerosol 1 (one) Aerosol Aerosol bid for 0 days Quantity: 1 {Each} Refills: 0 Ordered: 19-May-2018 Kathy Rivera RN Start : 07-May-2016 End : 19-May-2018 Inactive GLUC HCL/CSANA/GLY-AM-GLY,MX /C ([id number] GLYCN-C ORAL) (1 source) GLUC HCL/CSANA/GLY-AM-GLY,MX/C ([id number] GLYCN-C ORAL) Take by mouth. 0 Active Comment on above: Take by mouth. glucosamine hydrochloride 15 00 mg oral tablet (16 sources) Star t: 11-04 18 End: 05-26 20 take 1 tablet by mouth once daily Glucosamine Hcl 1,500 mg tablet Discontinued 1500 mg PO daily November 16, 2017 12:00am July 15, 2020 9:15am 12 hr guaiFENesin 1200 mg extended release oral tablet (5 sources) Star t: 04-06 End: 02-23 24 take 1 tablet by mouth twice daily, then take 1 tablet by mouth every twelve hours Guaifenesin (Mucinex) 1,200 mg tablet extended release 12hr Discontinued 1200 mg PO TWICE A DAY April 22, 2023 12:00am October 12, 2023 12:26pm hydroCHLOROthiazide 25 mg or al tablet (20 sources) Thiazide Diuretic Star t: 09-07 23 Start: 07-06-2022 Start: 01-01-2022 Start: 12-18-2020 Start: 12-11-2020 take 1 tablet by lore th once daily in the morning hydroCHLOROthiazide 25 MG Oral Tablet 1 (one) Tablet qam for 90 days Quantity: 90 {Tablet} Refills: 3 Ordered: 11-Dec-2020 Tamela Bang CMA Start : 11-Dec-2020 Active Comments: Mail order. Start: 12-11-2020 take 1 tablet by lore th once daily in the morning hydroCHLOROthiazide 25 MG Oral Tablet 1 (one) Tablet qam for 90 days Quantity: 90 {Tablet} Refills: 3 Ordered: 11-Dec-2020 Tamela Bang CMA Start : 11-Dec-2020 Active Comments: Mail order. Start: 06-12-2020 take 1 tablet by lore th once daily in the morning Hydrochlorothiazide 25 mg tablet Active 25 mg PO EVERY MORNING July 15, 2020 1:00am bp Start: 02-28-2020 take 1 tablet by lore th once daily in the morning hydroCHLOROthiazide 25 MG Oral Tablet 1 (one) Tablet qam for 90 days Quantity: 90 {Tablet} Refills: 1 Ordered: 28-Feb-2020 Nikky Tabor DO, DO, Kathleen Start : 28-Feb-2020 Active Comments: Mail order. Comment on above: Mail order. hydrocortisone acetate 25 mg rectal suppository (20 sources) Corticosteroid Start: 11-07-2012 End: 05-12-2013 Comment on above: Medication taken as needed. ibuprofen 800 mg oral tablet (20 sources) Nonsteroidal Anti-inflammatory Drug Start: 09-28-2022 Start: 07-06-2022 Start: 06-18-2021 Start: 11-16-2019 Start: 05-17-2019 take 1 tablet by lore th three times daily as needed Ibuprofen 800 MG Oral Tablet 1 Tablet tid/ prn with food for 90 days Quantity: 180 {Tablet} Refills: 3 Ordered: 17-May-2019 Ashley More LPN Start : 17-May-2019 Active Comments: Mail order. Start: 11-16-2017 take 1 tablet by lore th three times daily as needed Ibuprofen 800 MG Oral Tablet 1 Tablet tid/ prn with food for 90 days Quantity: 180 {Tablet} Refills: 3 Ordered: 16-Nov-2017 Nikky Tabor DO, DO, Kathleen Start : 16-Nov-2017 Active Comment on above: Mail order. levoFLOXacin 500 mg oral tab let (20 sources) Quinolone Antimicrobial Start: 06-14-2018 End: 06-21-2018 levothyroxine sodium 0.05 mg oral tablet (20 sources) l-Thyroxine Start: 09-28-2022 Start: 07-06-2022 Start: 01-01-2022 Start: 12-18-2020 Start: 12-11-2020 take 1 tablet by lore th once daily Synthroid 50 MCG Oral Tablet 1 (one) Tablet qd on an empty stomach for 90 days Quantity: 90 {Tablet} Refills: 3 Ordered: 11-Dec-2020 Tamela Bang CMA Start : 11-Dec-2020 Active Comments: Mail order. Start: 12-11-2020 take 1 tablet by lore th once daily Synthroid 50 MCG Oral Tablet 1 (one) Tablet qd on an empty stomach for 90 days Quantity: 90 {Tablet} Refills: 3 Ordered: 11-Dec-2020 Lety Bang CMAin Start : 11-Dec-2020 Active Comments: Mail order. Start: 10-28-2020 take 1 tablet by lore th once daily Synthroid 50 MCG Oral Tablet 1 (one) Tablet qd on an empty stomach for 90 days Quantity: 90 {Tablet} Refills: 3 Ordered: 28-Oct-2020 Nikky Tabor DO, DO, Kathleen Start : 28-Oct-2020 Active Start: 07-26-2020 take 2 tablets by mo uth once daily Levothyroxine 25 MCG tablet Active 50 ug PO DAILY July 26, 2020 1:00am thyroid Start: 07-26-2020 take 50 ug by mouth once daily Levothyroxine Active 50 MCG PO DAILY July 26, 2020 1:00am Start: 07-18-2020 take 1 tablet by lore th once daily Synthroid 50 MCG Oral Tablet 1 (one) Tablet qd on an empty stomach for 0 days Quantity: 30 {Tablet} Refills: 3 Ordered: 18-Jul-2020 Nikky Tabor DO, DO, Kathleen Start : 18-Jul-2020 Active Comment on above: Mail order. loratadine 10 mg oral tablet (20 sources) Start: 05-19-2016 End: 05-17-2019 meclizine hydrochloride 25 m g oral tablet (20 sources) Antiemetic Start: 06-12-2020 End: 07-06-2022 melatonin 10 mg oral tablet (20 sources) melatonin Inacti ve 120 actuat mometasone furoat e 0.1 mg/actuat metered dose inhaler (9 sources) Corticosteroid Start: 10-13-2022 multivitamin (20 sources) End: 04-08-2016 End: 04-08-2016 Multivitamin Oral Liquid 1 Q D for 0 days Refills: 0 Ordered: 08-Apr-2016 Marcelo LEONJamie Pruittsonal Hanson End : 08-Apr-2016 Inactive Multivitamin Oral Liquid (20 sources) End: 04-08-2016 Multivitamin Oral Liquid 1 Q D for 0 days Refills: 0 Ordered: 08-Apr-2016 Marcelo ANGELESJamiesonal Hanson End : 08-Apr-2016 Inactive End: 04-08-2016 Multivitamin Oral Liquid 1 Q D for 0 days Refills: 0 Ordered: 08-Apr-2016 Marcelo GILL BOX FIXERJamien L End : 08-Apr-2016 Inactive nystatin [id number] unt/ml topic al cream (20 sources) Polyene Antifungal Start: 11-07-2012 End: 05-12-2013 Start: 11-07-2012 End: 05-12-2013 NYSTATIN, [id number] (Ext ernal Cream) 1 Cream bid for 0 days Quantity: 1 {Cream} Refills: 0 Ordered: 12-May-2013 ZEINAB Camacho LPN Start : 07-Nov-2012 End : 12-May-2013 Inactive Bartley-3 Fatty Acids-Vitamin E 1,000 mg cap (1 source) Bartley-3 Fatty Acids-Vitamin E 1,000 mg cap Take 1 capsule by mouth. 0 Active Comment on above: Take 1 capsule by mo [facility]. omeprazole 40 mg delayed release oral capsule (20 sources) Proton Pump Inhibitor Start: 3 End: 3 take 1 capsule by mouth twice daily Omeprazole 40 mg capsule,delayed release(DR/EC) Discontinued 40 mg PO TWICE A DAY October 22, 2022 2:45pm October 26, 2022 11:53am reflux Start: 12-18-2020 Omeprazole 40 MG Oral Capsule Delayed Release [address] QD for 90 days Quantity: 90 {Capsule} Refills: 3 Ordered: 18-Dec-2020 Nikky Tabor DO, DO, Kathleen Start : 18-Dec-2020 Active Comments: Mail order. Start: 12-11-2020 Omeprazole 40 MG Oral Capsule Delayed Release [address] QD for 90 days Quantity: 90 {Capsule} Refills: 3 Ordered: 11-Dec-2020 Tamela Bang CMA Start : 11-Dec-2020 Active Comments: Mail order. Start: 12-11-2020 Omeprazole 40 MG Oral Capsule Delayed Release [address] QD for 90 days Quantity: 90 {Capsule} Refills: 3 Ordered: 11-Dec-2020 Tamela Bang CMA Start : 11-Dec-2020 Active Comments: Mail order. Start: 10-28-2020 Omeprazole 40 MG Oral Capsule Delayed Release [address] QD for 90 days Quantity: 90 {Capsule} Refills: 0 Ordered: 28-Oct-2020 Sharona DO, Nikky Sharona DO, Nikky Start : 28-Oct-2020 Active Start: 06-12-2020 Omeprazole 40 MG Oral Capsule Delayed Release [address] QD for 90 days Quantity: 90 {Capsule} Refills: 3 Ordered: 12-Jun-2020 Sharona DO, Nikky Sharona DO, Nikky Start : 12-Jun-2020 Active Comments: Mail order. Start: 10-30-2019 Omeprazole 40 MG Oral Capsule Delayed Release [address] QD for 90 days Quantity: 90 {Capsule} Refills: 3 Ordered: 30-Oct-2019 Sharona DO, Nikky Sharona DO, Nikky Start : 30-Oct-2019 Active Comments: Mail order. Start: 05-17-2019 Omeprazole 40 MG Oral Capsule Delayed Release [address] QD for 90 days Quantity: 90 {Capsule} Refills: 3 Ordered: 17-May-2019 Ashley More LPN Start : 17-May-2019 Active Comments: Mail order. Start: 05-19-2018 Omeprazole 40 MG Oral Capsule Delayed Release [address] QD for 90 days Quantity: 90 {Capsule} Refills: 3 Ordered: 19-May-2018 Kathy Rivera LPN Start : 19-May-2018 Active Start: 11-16-2017 End: 10-22-2022 take 1 capsule by mouth once daily Omeprazole 40 mg capsule,delayed release(DR/EC) Discontinued 40 mg PO daily November 16, 2017 12:00am October 22, 2022 2:46pm reflux Start: 10-24-2013 End: 07-10-2014 Start: 10-24-2013 End: 07-10-2014 PRILOSEC, 20MG (Oral Capsule Delayed Release) [address] QD for 0 days Quantity: 90 {Capsule_DR} Refills: 0 Ordered: 4-Nov-2014 June Robertson RN Start : 24-Oct-2013 End : 10-Jul-2014 Inactive Start: 06-21-2012 End: 05-12-2013 Start: 06-21-2012 End: 05-12-2013 PRILOSEC OTC, 20MG (Oral Tab let Delayed Release) [address] qd for 0 days Quantity: 90 {Tablet_DR} Refills: 3 Ordered: 12-May-2013 ZEINAB Camacho LPN Start : 21-Jun-2012 End : 12-May-2013 Inactive Comments: uses generic Comment on above: uses generic Mail order. ondansetron 4 mg disintegrating oral tablet (10 sources) Serotonin-3 Receptor Antagonist Start: 3 End: 3 take 1 tablet by mouth every eight hours as needed for nausea Ondansetron 4 mg tablet,disintegratin g Discontinued 4 mg PO EVERY 8 HOURS NEEDED as needed for Nausea 10 December 19, 2022 12:00am March 16, 2023 10:14am Start: 12-04-2015 take 1 tablet by lore th every eight hours as needed ondansetron (ZOFRAN) 8 mg tablet Take 1 tablet by mouth every 8 hours as needed. 8 tablet 0 12/04/2015 Active Comment on above: Take 1 tablet by lore th every 8 hours as needed. OTC PRODUCT (1 source) OTC PRODUCT Tume nikia 0 Active Comment on above: Tumeric oxymetazoline hydrochloride 0.5 mg/ml nasal spray (5 sources) Start: 04-22-2023 End: 10-12-2023 Oxymetazoline (Mucinex Sinus-Max) 0.05 % spray,non-aerosol Discontinued 1 NMA INTRANASAL ONCE April 22, 2023 12:00am October 12, 2023 12:27pm predniSONE 10 mg oral tablet (20 sources) Corticosteroid Start: 08-25-2023 End: 10-12-2023 Prednisone 10 mg tablet Discontinued 10 mg PO daily August 25, 2023 1:00am October 12, 2023 12:28pm take 4 tabs for three days, then 3 tabs for three days, then 2 tabs for three days, then 1 tab for 3 days Start: 07-14-2023 End: 12-13-2023 take 3 tablets by mouth once daily at mealtime Prednisone 20 mg tablet Discontinued 60 mg PO daily July 14, 2023 1:00am August 18, 2023 9:13am administer with food or milk Start: 07-14-2023 End: 08-18-2023 take 60 mg by mouth once daily at mealtime Prednisone Discontinued 60 MG PO daily July 14, 2023 1:00am August 18, 2023 9:13am administer with food or milk Start: 04-22-2023 End: 07-06-2023 Prednisone 10 mg tablet Discontinued 10 mg PO daily June 03, 2023 12:43pm July 06, 2023 10:41am Allergic rhinitis Allergic rhinitis, unspecified take 4 tabs for three days, then 3 tabs for three days, then 2 tabs for three days, then 1 tab for 3 days Start: 10-22-2022 End: 03-16-2023 take 2 tablets by mouth once daily Prednisone 20 mg tablet Discontinued 40 mg PO DAILY January 08, 2023 1:35pm March 16, 2023 10:14am cough Start: 10-22-2022 End: 03-16-2023 take 40 mg by mouth once daily Prednisone Discontinued 40 MG PO DAILY January 08, 2023 1:35pm March 16, 2023 10:14am Start: 08-14-2022 End: 10-07-2022 Start: 05-05-2022 End: 07-06-2022 Start: 01-30-2022 End: 03-13-2022 Start: 06-05-2020 End: 06-12-2020 Start: 04-29-2020 End: 05-06-2020 Start: 04-29-2020 End: 05-06-2020 take 3 tablets by mouth once daily at mealtime predniSONE 10 MG Oral Tablet 3 (three) Tablet daily for 7 days Quantity: 21 {Tablet} Refills: 0 Ordered: 29-Apr-2020 Samantha Roland CNP Start : 29-Apr-2020 End : 06-May-2020 Inactive Comments: with food Start: 06-14-2018 End: 06-24-2018 take 3 tablets by mouth twice daily, then take 2 tablets by mouth twice daily, then take 1 tablet by mouth once daily PredniSONE 10 MG Oral Tablet 1 Tablet uad for 10 days Quantity: 32 {Tablet} Refills: 0 Ordered: 14-Jun-2018 Samantha Roland CNP Start : 14-Jun-2018 End : 24-Jun-2018 Inactive Comments: 3 tablets BID 2 days2 tablet BID x 4 days1 tablet qd x 4 daysthen stop.10 days32 tablets Start: 05-07-2016 End: 05-16-2016 PredniSONE 20 MG Oral Tablet 1 (one) Tablet bid for 2days then qd for 3days 1/2 tab qd for 4days for 9 days Refills: 0 Ordered: 07-May-2016 Nikky Tabor DO, DO, Kathleen Start : 07-May-2016 End : 16-May-2016 Inactive Comment on above: 3 tablets BID 2 days 2 tablet BID x 4 days1 tablet qd x 4 daysthen stop.10 days32 tablets with food promethazine hydrochloride 2 5 mg rectal suppository (20 sources) Phenothiazine Start: 10-31-2015 End: 05-19-2018 take 12.5 mg rectal route every six hours as needed promethazine (PHENERGAN) 12.5 mg supposi tory 12.5 mg by RECTAL route every 6 hours as needed for Nausea/Vomiting. 0 Active Comment on above: 12.5 mg by RECTAL ro [place] every 6 hours as needed for Nausea/Vomiting. raNITIdine 300 mg oral table t (20 sources) Histamine-2 Receptor Antagonist Start: 10-31-2015 End: 04-08-2016 Ranitidine HCl 3 00 mg capsule Take 300 mg by mouth. 0 Active Comment on above: Take 300 mg by mouth . 72 hr scopolamine 0.0139 mg/ hr transdermal system (20 sources) Anticholinergic Start: 12-23-2016 End: 11-16-2017 Start: 12-23-2016 End: 11-16-2017 Transderm-Scop (1.5 MG) 1 MG /3DAYS Transdermal Patch 72 Hour 1 (one) Patch 72HR Patch 72HR 1 patch q 72hrs prn for 0 days Quantity: 7 {Patch} Refills: 0 Ordered: 16-Nov-2017 Kathy Rivera RN Start : 23-Dec-2016 End : 16-Nov-2017 Inactive solifenacin succinate 5 mg o ral tablet (20 sources) Cholinergic Muscarinic Antagonist Start: 09-28-2022 Start: 07-08-2022 Start: 07-06-2022 Start: 04-07-2021 End: 10-05-2024 take 1 tablet by mouth once daily Solifenacin (Vesicare) 5 mg tablet Discontinued 5 mg PO DAILY October 06, 2021 1:00am October 05, 2024 2:09pm Start: 12-11-2020 Super B Complex + C (17 sources) Super B Complex/Vitamin C (17 sources) take 1 tablet by mouth once dinora y SUPER B COMPLEX/VITAMIN C (Oral Tablet) 1 qd Active SUPER B COMPLEX/VITAMIN C (Oral Tablet) (20 sources) take 1 tablet by mouth once daily SUPER B COMPLEX/VITAMIN C (Oral Tablet) 1 qd Active tiZANidine 4 mg oral tablet (20 sources) Central alpha-2 Adrenergic Agonist Start: End: triamcinolone acetonide 1 mg/ml topical cream (20 sources) Corticosteroid Start: End: Start: 06-12-2020 Triamcinolone Acetonide 0.1 % External Cream 1/4 Application bid to area for 0 days Quantity: 1 {Tube} Refills: 0 Ordered: 12-Jun-2020 Taemla Bang CMA Start : 12-Jun-2020 Active Comments: 15gram tube Start: 02-07-2015 End: 10-31-2015 TRIAMCINOLONE ACETONIDE, 0.1 % (External Cream) 1 (one) Cream Cream bid to area for 0 days Quantity: 1 {Tube} Refills: 0 Ordered: 31-Oct-2015 ZEINAB Camacho LPN Start : 07-Feb-2015 End : 31-Oct-2015 Inactive Comment on above: 15gram tube Turmeric extract (20 sources) take 1 capsule by mouth once nya ly Turmeric 400 MG Oral Capsule 1 daily (400 MG) Active 24 hr verapamil hydrochlorid e 180 mg extended release oral tablet (20 sources) Calcium Channel Manuel Start: 09-28-2022 Start: 07-06-2022 Start: 01-01-2022 Start: 12-18-2020 Start: 12-18-2020 take 1 tablet by mouth once da gabriel Calan SR 180 MG Oral Tablet Extended Release 1 (one) Tablet qd for 90 days Quantity: 90 {Tablet} Refills: 3 Ordered: 14-Apr-2021 Nikky Tabor DO DO Nikky Start : 18-Dec-2020 Active Comments: Mail order. Start: 12-11-2020 take 1 tablet by mouth once da gabriel Calan SR 180 MG Oral Tablet Extended Release 1 (one) Tablet qd for 90 days Quantity: 90 {Tablet} Refills: 3 Ordered: 11-Dec-2020 Gravius SUGAR CANE PLANTER, Tamela Start : 11-Dec-2020 Active Comments: Mail order. Start: 12-11-2020 take 1 tablet by mouth once da gabriel Calan SR 180 MG Oral Tablet Extended Release 1 (one) Tablet qd for 90 days Quantity: 90 {Tablet} Refills: 3 Ordered: 11-Dec-2020 Gravius SUGAR CANE PLANTER, Tamela Start : 11-Dec-2020 Active Comments: Mail order. Start: 10-28-2020 take 1 tablet by mouth once da gabriel Calan SR 180 MG Oral Tablet Extended Release 1 (one) Tablet qd for 90 days Quantity: 90 {Tablet} Refills: 3 Ordered: 28-Oct-2020 Sharona DO, Nikky Sharona DOValeNikky Start : 28-Oct-2020 Active Start: 06-12-2020 take 1 tablet by mouth once da gabriel Calan SR 180 MG Oral Tablet Extended Release 1 (one) Tablet qd for 0 days Quantity: 30 {Tablet} Refills: 3 Ordered: 12-Jun-2020 Sharona DO, Nikky Sharona DO Nikky Start : 12-Jun-2020 Active Start: 12-21-2019 take 1 tablet by mouth once da gabriel Calan SR 180 MG Oral Tablet Extended Release 1 (one) Tablet qd for 0 days Quantity: 30 {Tablet} Refills: 3 Ordered: 21-Dec-2019 Sharona DO, Nikky Sharona DO Nikky Start : 21-Dec-2019 Active Start: 05-17-2019 take 1 tablet by mouth once da gabriel Calan SR 180 MG Oral Tablet Extended Release 1 (one) Tablet ER Tablet ER qd for 0 days Quantity: 90 {Tablet} Refills: 3 Ordered: 17-May-2019 Ashley More LPN Start : 17-May-2019 Active Comments: Mail order. Start: 05-19-2018 take 1 tablet by mouth once da gabriel Calan SR 180 MG Oral Tablet Extended Release 1 (one) Tablet ER Tablet ER qd for 0 days Quantity: 90 {Tablet} Refills: 3 Ordered: 19-May-2018 Kathy Rivera LPN Start : 19-May-2018 Active Start: 11-16-2017 take 1 capsule by mo uth once daily Verapamil 180 mg capsule,ext rel. pellets 24 hr Active 180 mg PO daily November 16, 2017 12:00am BP Comment on above: Mail order. Vitamin B Complex (1 source) VITAMIN B COMPLE X (B COMPLEX ORAL) Take by mouth. 0 Active Comment on above: Take by mouth. vitamin e 180 mg oral capsule (20 sources) Start: 05-12-2013 End: 06-18-2021 Start: 05-12-2013 End: 06-18-2021 Start: 05-12-2013 take 1 capsule by mo uth once daily VITAMIN E, 400UNIT (Oral Capsule) 1 (one) Capsule QD for 0 days Quantity: 30 {Capsule} Refills: 0 Ordered: 12-May-2013 Felisha Solorzano MD Start : 12-May-2013 Active take 1 capsule by mo uth once daily alpha tocopheryl acetate (VITAMIN E) 400 unit capsule Take 400 Units by mouth once daily. 0 Active Comment on above: Take 400 Units by mo ut once daily. (14 sources) Problems Active Problems Problem Classification Problem Date Documented Date Episodic/Chronic Abdominal pain (20 sources) Vaginal pain; Translations: [Vaginal pain] Resolved : 11-17-19 18 11-16-2017 Episodic Acute bronchitis (20 sources) Acute bronchitis; Translations: [Acute bronchitis due to other specified organisms] 07-04-2018 Episodic Comment on above: with bronchospasm Administrative/socia l admission (20 sources) Pneumococcal immunization status; Translations: [Counseling procedure with explicit context] 07-08-2017 Episodic Comment on above: shingrix vaccine 2 d ago with erythema of L arm at site. no obvious bacterial infection Allergic reactions (20 sources) Dermatitis; Translations: [Eczema] Resolved : 10-31-19 16 10-31-2015 Episodic Anal and rectal conditions (20 sources) Rectal pain; Translations: [Anal or rectal pain] Resolved : 05-12-20 13 05-12-2013 Episodic Anxiety disorders (20 sources) Anxiety; Translations: [Anxiety] 04-29-2020 Chronic Comment on above: pt considereing minc hex or cbd Asthma (6 sources) Allergic asthma; Translations: [Unspecified asthma, uncomplicated] Onset: 11-07-1908-18-2023 Chronic Chronic obstructive pulmonary disease and bronchiectasis (20 sources) Bronchitis; Translations: [Bronchitis] 07-04-2018 Episodic Comment on above: august 20 2016: of f and on cough, fever(warm) , chills.August 30: cough, getting worse, yellow, some green.Denies fever,SOB, whheze, runny nose, sorethroat, body ache, sinus aches, ear aches, rash, asthma/COPD. Chronic obstructive pulmonary disease and bronchiectasis (20 sources) Chronic obstructive pulmonary disease and bronchiectasis Complications of surgical procedures or medical care (20 sources) Drug therapy finding; Translations: [Medication side effect] 12-23-2020 Episodic Conditions associated with dizziness or vertigo (20 sources) Vertigo; Translations: [Benign paroxysmal positional vertigo] Resolved : 05-12-20 13 05-12-2013 Episodic Comment on above: think now that talk about how evolve--think BPPV talk about how treat episodes. handout given like phenergan side effect from pro cedure -- sat up- did kinza and cold compresses on face -- resolved and feeling better and asx when left Diabetes mellitus without complication (20 sources) Hyperglycemia; Translations: [Hyperglycemia] 07-04-2018 Episodic Comment on above: pt currently doing d iet and exercise -- cut back alot of flour and sugardo haic later if still up next fu Diseases of white blood cells (7 sources) Leukocytosis; Translations: [Elevated white blood cell count, unspecified] 01-08-2023 Chronic Disorders of lipid metabolism (20 sources) Hyperlipidemia; Translations: [Hyperlipidemia] 07-18-2020 Chronic Diverticulosis and diverticulitis (9 sources) Diverticulum of duodenum; Translations: [Diverticulosis of small intestine without perforation or abscess without bleeding] 12-19-2022 Chronic Esophageal disorders (20 sources) Gastroesophageal reflux disease; Translations: [Eosinophilic esophagitis] Onset: 11-21-19 16 07-04-2018 Chronic Comment on above: do EGD q 6yrs- 2011 Essential hypertension (20 sources) Benign hypertension; Translations: [Hypertension, benign] Onset: 11-21-19 16 07-04-2018 Chronic Comment on above: does not check BP at home Fluid and electrolyte disorders (18 sources) Dehydration; Translations: [Dehydration] 12-19-2022 Episodic Gastrointestinal hemorrhage (20 sources) Feces color: tarry; Translations: [Black tarry stools] 03-13-2022 Episodic Genitourinary symptoms and ill-defined conditions (20 sources) Female stress incontinence; Translations: [Stress incontinence, female] 12-11-2020 Chronic Headache, including migraine (20 sources) Headache; Translations: [Headache] Resolved : 03-21-20 09 06-11-2015 Episodic Hemorrhoids (20 sources) Hemorrhoids; Translations: [External hemorrhoids] Resolved : 03-21-20 09 06-18-2015 Episodic Immunizations and screening for infectious disease (20 sources) Need for prophylactic vaccination and inoculation against influenza; Translations: [Viral screening status] Resolved : 11-17-19 18 12-23-2020 Episodic Melanomas of skin (1 source) Malignant melanoma; Translations: [Malignant melanoma of skin, unspecified] Onset: 11-21-19 16 11-21-2015 Chronic Melanomas of skin (20 sources) Personal history of malignant melanoma of skin; Translations: [HX, PERSONAL, MALIGNANCY, SKIN MELANOMA] Resolved : 05-12-20 13 05-12-2013 Episodic Comment on above: seeing derm regularl y Menopausal disorders (3 sources) Atrophic vaginitis; Translations: [Postmenopausal atrophic vaginitis] 10-12-2023 Chronic Comment on above: estradiol cream Nausea and vomiting (20 sources) Nausea; Translations: [Nausea and vomiting] Onset: 11-21-19 16 Resolved : 05-17-20 19 07-04-2018 Episodic Comment on above: episodes. will do GB work up not sound like vertigo at this point. not migraine prodrome. gerd taken care of. ? GB because bilious vomit. will work that up if red flags with this willcall. consider tilt table because at tiems sound vasodepressor like try taking synthriod 2hr after eat instead of on empty stomach assure separting from Ca++ or D Noninfectious gastroenteritis (9 sources) Gastroenteritis; Translations: [Noninfective gastroenteritis and colitis, unspecified] 12-19-2022 Episodic Nonspecific chest pain (20 sources) Chest pain; Translations: [Chest pain] Resolved : 06-04-06-21-2012 Episodic Comment on above: stress 1-04 good, ?M S reveiwed with patisharan t recent tests hospital reports. stress negative. egd positive Nutritional deficiencies (20 sources) Vitamin D deficiency; Translations: [Vitamin D deficiency] 07-04-2018 Chronic Comment on above: keep doing what you are doing Other aftercare (20 sources) Patient encounter status; Translations: [Therapeutic drug monitoring] 12-23-2020 Episodic Other and unspecified benign neoplasm (16 sources) Gastric polyp; Translations: [Benign neoplasm of stomach] 07-15-2020 Episodic Other bone disease and musculoskeletal deformities (20 sources) Osteopenia; Translations: [Osteopenia] 09-14-2018 Episodic Comment on above: pt will increase exe rcise -- no meds yet Other circulatory disease (20 sources) Pulmonary congestion ; Translations: [Chest congestion] 07-06-2022 Episodic Other circulatory disease (20 sources) Abnormal chest sounds; Translations: [Abnormal lung sounds] 08-14-2022 Episodic Other connective tissue disease (20 sources) Primary fibromyalgia syndrome; Translations: [Fibromyalgia] Episodic Other connective tissue disease (20 sources) Fibromyalgia; Translations: [Fibromyalgia] Onset: 09-06-1807-04-2018 Episodic Comment on above: pelligreno 3 yrs ago (2014). not anymore Other diseases of kidney and ureters (9 sources) Cyst of kidney; Translations: [Cyst of kidney, acquired] 12-19-2022 Episodic Other diseases of veins and lymphatics (20 sources) Other lymphedema; Translations: [Lymphedema of limb] Chronic Other diseases of veins and lymphatics (20 sources) Lymphedema of limb; Translations: [Lymphedema, limb] 07-04-2018 Chronic Comment on above: stable on left arm Other ear and sense organ disorders (20 sources) Otalgia, right ear; Translations: [Otalgia of right ear] Resolved : 05-17-2007-04-2018 Episodic Other ear and sense organ disorders (20 sources) Excessive cerumen in ear canal ; Translations: [Ceruminosis, right] Resolved : 05-17-2007-04-2018 Episodic Other female genital disorders (20 sources) Vaginal discharge; Translations: [Vaginal discharge] 11-16-2017 Episodic Other female genital disorders (20 sources) Vaginal odor; Translations: [Vaginal odor] Resolved : 11-17-19 18 11-16-2017 Episodic Other gastrointestinal disorders (20 sources) Stool DNA-based colorectal cancer screening positive; Translations: [Positive colorectal cancer screening using Cologuard test] 12-23-2020 Episodic Other gastrointestinal disorders (20 sources) Diarrhea; Translations: [Diarrhea] Resolved : 01-14-20 23 03-13-2022 Episodic Other inflammatory condition of skin (20 sources) Pruritus of vagina; Translations: [Vaginal itching] Resolved : 11-11-19 18 11-16-2017 Episodic Other inflammatory condition of skin (20 sources) Itching ; Translations: [Itching] Resolved : 06-18-20 21 04-29-2020 Episodic Other lower respiratory disease (20 sources) Cough; Translations: [Cough] Resolved : 01-14-20 23 07-04-2018 Episodic Other lower respiratory disease (20 sources) Wheezing; Translations: [Wheeze] Resolved : 02-08-20 15 02-07-2015 Episodic Other lower respiratory disease (20 sources) Chronic cough; Translations: [Chronic cough] 10-22-2022 Episodic Other nutritional; endocrine; and metabolic disorders (20 sources) Body mass index 25-29 - overweight; Translations: [BMI 27.0-27.9,adult] Resolved : 05-17-20 19 07-04-2018 Chronic Other nutritional; endocrine; and metabolic disorders (20 sources) Body mass index 25-29 - overweight; Translations: [BMI 27.0-27.9,adult] Resolved : 05-17-20 19 12-23-2020 Episodic Other nutritional; endocrine; and metabolic disorders (20 sources) Overweight in adulthood with body mass index of 25 or more but less than 30; Translations: [BMI 26.0-26.9,adult] Onset: 11-21-19 16 Resolved : 07-15-20 22 01-01-2022 Episodic Other skin disorders (20 sources) Lichen sclerosus et atrophicus; Translations: [Lichen sclerosus et atrophicus] Chronic Comment on above: clobetesol Other skin disorders (20 sources) Eruption; Translations: [Rash/skin eruption] Resolved : 10-31-19 16 10-31-2015 Episodic Comment on above: steriods help, retur n after months in face and upper chest but not other sun exposed areas. not sure what contact. no systmeic signs and symptoms. will give solumedrol again and has oral steriods. get back to derm Other skin disorders (20 sources) Skin tag; Translations: [Skin tag] Resolved : 05-12-20 13 05-12-2013 Episodic Comment on above: anal rectal area has apt with Dr. Camarillo at [facility] in December Other upper respiratory disease (20 sources) Allergic rhinitis; Translations: [Allergic rhinitis] Resolved : 03-21-20 09 06-11-2015 Chronic Other upper respiratory disease (2 sources) Allergic rhinitis, unspecified; Translations: [Allergic rhinitis, cause unspecified] 04-22-2023 Chronic Other upper respiratory disease (20 sources) Nasal discharge; Translations: [Post-nasal drainage] 04-29-2020 Episodic Other upper respiratory infections (20 sources) Sinusitis; Translations: [Sinusitis] Resolved : 01-14-20 23 07-15-2022 Chronic Other upper respiratory infections (20 sources) Viral upper respiratory tract infection; Translations: [Nasal discharge] 04-29-2020 Episodic Poisoning by nonmedicinal substances (20 sources) Bee sting; Translations: [Bee sting reaction] Resolved : 11-02-19 17 11-16-2017 Episodic Comment on above: PrednisoneBenadrylco ld compressesantibioticIf chest pain, SOB, lightheaded : go to EDlocalized reaction to right had. Was stung last night and took benadryl but flaring again. Gave her childrens claritin x 2 for total dose of 10mg at 11:10am. patient confirmed she can tolerate the claritin before given to her PO. -ML, LPNGot stung by yellow jacket on right hand. little finger, very itchy, painful, not getting worse., redness is spreading , swelling has spread since last nightNo SOB or chest pain, lighthededness, diozziness. Residual codes; unclassified (20 sources) Postmenopausal state; Translations: [Post-menopausal] 09-14-2018 Episodic Comment on above: last dexa 08/23 Residual codes; unclassified (20 sources) Non-smoker; Translations: [Nonsmoker] 12-23-2020 Episodic Residual codes; unclassified (20 sources) History of clinical finding in subject; Translations: [H/O motion sickness] Resolved : 11-17-19 18 11-16-2017 Episodic Residual codes; unclassified (1 source) Asymptomatic menopausal state; Translations: [Asymptomatic menopausal state] Onset: 04-19-20 Episodic Skin and subcutaneous tissue infections (20 sources) Cellulitis; Translations: [Cellulitis] Resolved : 11-02-19 17 11-16-2017 Episodic Spondylosis; intervertebral disc disorders; other back problems (20 sources) Backache; Translations: [Neck pain] Resolved : 10-31-19 16 06-12-2015 Episodic Comment on above: 1980s thin OA talk about e xercises and stretches and handout given talk about chiropactor. if not help to PT and traction andthen xrays Syncope (20 sources) Syncope and collapse; Translations: [Syncope and collapse] Resolved : 06-20-20 10 07-30-2015 Episodic Syncope (20 sources) Syncope Thyroid disorders (20 sources) Subclinical hypothyroidism; Translations: [Hypothyroidism] 07-04-2018 Chronic Unclassified (20 sources) Needs influenza immunization; Translations: [Postmenopausal state] 07-04-2018 Episodic Unclassified (20 sources) Encounter for screening mammogram for breast cancer (Renamed from Encounter for screening mammogram for malignant neoplasm of breast) Unclassified (20 sources) Hypertension, benign Unclassified (20 sources) Unclassified (20 sources) BMI 27.0-27.9,adult Unclassified (20 sources) Post-menopausal Unclassified (20 sources) MALIGNANT MELANOMA, NOS Onset: 09-06-18 Resolved : 06-21-20 12 06-21-2012 Unclassified (20 sources) Encounter for screening for malignant neoplasm of colon (Renamed from Special screening for malignant neoplasms, colon); Translations: [Screening status] 07-04-2018 Comment on above: Dr. Dill did previ ous colonoscopy and EGD, patient did not want to return there. Included is Dr. Dill's exam from 2013. Unclassified (20 sources) TYSHAWN-sasha Resolved : 11-17-19 18 11-16-2017 Comment on above: colonscopy mikel sp ring 2011 Unclassified (20 sources) WWV V73.21 valente Resolved : 05-12-20 13 05-12-2013 Unclassified (20 sources) Nonsmoker; Translations: [Non-smoker] 07-04-2018 Unclassified (20 sources) Hypertension,benign(401.1) Unclassified (20 sources) BMI 28.0-28.9,adult Unclassified (20 sources) Wheeze Unclassified (20 sources) Abnormal TSH Unclassified (20 sources) External hemorrhoid Unclassified (20 sources) Poison vikas (692.6) Unclassified (20 sources) HX, PERSONAL, MALIGNANCY, SKIN MELANOMA (V10.82) Unclassified (20 sources) Backache, unspecified (724.5) Unclassified (20 sources) Bee sting reaction Unclassified (20 sources) Abnormal EKG Unclassified (7 sources) Drug therapy finding; Translations: [Medication side effect] 12-11-2020 Unclassified (4 sources) Stress incontinence, female Unclassified (1 source) BPV (benign positional vertigo) Unclassified (1 source) BRONCHITIS, NOT SPECIFIED ACUTE OR CHRONIC (490.) Past or Other Problems Problem Classification Problem Date Documented Date Episodic/Chronic Biliary tract disease (1 source) Chronic cholecystitis with calculus; Translations: [Calculus of gallbladder with chronic cholecystitis without obstruction] Onset: 12-10-2015 12-10-2015 Episodic Conditions associated with dizziness or vertigo (20 sources) Conditions associated with dizziness or vertigo Esophageal disorders (20 sources) Esophageal disorders Hepatitis (1 source) Hepatitis Influenza (20 sources) Influenza Other ear and sense organ disorders (20 sources) Otalgia of right ear; Translations: [Otalgia, right] Resolved: 05-17-2019 05-17-2019 Other skin disorders (18 sources) Inflammatory dermatosis; Translations: [Dermatitis] Resolved: 10-31-2015 10-31-2015 Episodic Pneumonia (20 sources) Pneumonia Residual codes; unclassified (16 sources) Past history of procedure; Translations: [Other specified postprocedural states] Onset: 11-04-2017 07-15-2020 Episodic Comment on above: 11/29/2017 Residual codes; unclassified (16 sources) History of colonoscopy; Translations: [Other specified postprocedural states] Onset: 11-04-2017 07-15-2020 Episodic Comment on above: 11/29/2017 Residual codes; unclassified (18 sources) Requires vaccination; Translations: [Need for prophylactic vaccination with Streptococcus pneumoniae (Pneumococcus) and Influenza vaccines] 07-08-2017 Unclassified (20 sources) Breast neoplasm screening status; Translations: [Other specified abnormal findings of blood chemistry] Onset: 10-16-2024 Resolved: 11-16-2017 07-04-2018 Episodic Comment on above: Dr. Dill did previ ous colonoscopy and EGD, patient did not want to return there. Included is Dr. Dill's exam from 2013.last scope summer 2017last cologard 11/20 -- will do cologard now 06/25 Unclassified (20 sources) Encounter for health maintenance examination with abnormal findings; Translations: [Patient encounter status] 11-10-2017 Comment on above: 2-16 new to medicare reviewed with patient all tests, answered all questions, need flu and pneumonia updated, colonoscopy 08-14-14, Mammogram 08-19-15, [facility] Dr. Lovett pelvic , pap was , whisper test WNL, mini mental= 29/30 Unclassified (20 sources) Lymphedema, limb Unclassified (20 sources) Nausea and vomiting in adult Unclassified (20 sources) Rash/skin eruption (782.1) Unclassified (20 sources) H/O motion sickness; Translations: [History of clinical finding in subject] Resolved: 11-16-2017 11-16-2017 Unclassified (20 sources) Ceruminosis, right Unclassified (20 sources) Screening for HPV (human papillomavirus) (Renamed from Encounter for screening for human papillomavirus (HPV)); Translations: [Patient encounter status] Resolved: 11-16-2017 11-16-2017 Unclassified (20 sources) Vaginal itching Unclassified (20 sources) Vaginal odor Unclassified (20 sources) Anal burning (569.42) Unclassified (20 sources) Unspecified Diagnosis 07-04-2018 Unclassified (20 sources) Pregnancies (); Translations: [Pregnancies ()] 07-04-2018 Comment on above: 2 Unclassified (20 sources) Otalgia, right Unclassified (20 sources) Esophagitis, eosinophilic Unclassified (20 sources) Patient encounter status; Translations: [Encounter for annual general medical examination with abnormal findings in adult] Resolved: 11-16-2017 07-04-2018 Comment on above: 2-16 new to medicare reviewed with patient all tests, answered all questions, need flu and pneumonia updated, colonoscopy 08-14-14, Mammogram 08-19-15, [facility] Dr. Lovett pelvic , pap was , whisper test WNL, mini mental= 29/30 Unclassified (20 sources) Deliveries (Parity); Translations: [Deliveries (Parity)] 07-04-2018 Comment on above: 2 Unclassified (20 sources) Screening status; Translations: [Encounter for screening for malignant neoplasm of colon (Renamed from Special screening for malignant neoplasms, colon)] 09-14-2018 Comment on above: Dr. Dill did previ ous colonoscopy and EGD, patient did not want to return there. Included is Dr. Dill's exam from 2013. Dr. Dill did previ ous colonoscopy and EGD, patient did not want to return there. Included is Dr. Dill's exam from 2013.last scope summer 2017 Dr. Dill did previ ous colonoscopy and EGD, patient did not want to return there. Included is Dr. Dill's exam from 2013.last scope summer 2017last cologard 11/20 -- will do cologard now 06/25 Unclassified (20 sources) Non-smoker; Translations: [Nonsmoker] 09-14-2018 Unclassified (20 sources) History of clinical finding in subject; Translations: [H/O motion sickness] Resolved: 11-16-2017 11-16-2017 Unclassified (20 sources) Encounter for annual general medical examination with abnormal findings in adult Unclassified (20 sources) Annual Medicare Phyiscal WITHOUT abnormal findings (Renamed from Encounter for general adult medical examination without abnormal findings) Unclassified (20 sources) Postmenopausal (Renamed from Postmenopausal status) Unclassified (20 sources) Poison vikas Unclassified (20 sources) Therapeutic drug monitoring; Translations: [Drug therapy finding] 06-12-2020 Unclassified (20 sources) Upper respiratory infection, viral Unclassified (20 sources) Post-nasal drainage Unclassified (13 sources) Positive colorectal cancer screening using Cologuard test Unclassified (1 source) Deliveries (Parity); Translations: [Deliveries (Parity)] 12-23-2020 Comment on above: 2 Unclassified (1 source) Pregnancies (); Translations: [Pregnancies ()] 12-23-2020 Comment on above: 2 Unclassified (2 sources) Need for prophylactic vaccination with Streptococcus pneumoniae (Pneumococcus) and Influenza vaccines Results Test Name Value Interpretation Reference Range Facility Pulmonary Visit Reporton Pulmonary Visit Report [facility] Pulmonary Medicine [address] [place] [address] OFFICE VISIT Date of Service: 07/16/25 MR#: [id number] Acct: [id number] Name: JAKY SPENCER Rep #: [id number] : 1950 Provider: SHAKILA Mondragon Age/Sex: 74/F Location: [facility] Status: Signed Assessment and Plan Assessment and Plan (1) Irregular heart rhythm: Status: Acute Plan: New. The patient reports that she has not ever been told that she has an irregular heart rhythm. She is not on anticoagulation. She denies any shortness of breath, chest tightness or chest pain. I am sending a message to her primary care doctor. The patient is agreeable to present to the emergency department if she develops any sudden onset of shortness of breath, chest pain or chest tightness. She has a follow-up with her primary care doctor next week. (2) Allergic asthma: Status: Chronic Qualifiers: Asthma severity: severe Asthma persistence: persistent Asthma complication type: uncomplicated Qualified Code(s): J45.50 - Severe persistent asthma, uncomplicated Plan: Stable, she has no signs of exacerbation of asthma today. No change in maintenance medications, completely controlled with the use of Nucala. No additional testing at this time. Contact the office with any signs of new or worsening symptoms. Follow-up in 9 months. Medications: Changed From omeprazole 40 mg PO BID 60 caps 2RF reflux To omeprazole 40 mg PO ONCE Plan Details Additional Comments: This note was generated with [employer] dictation software. It may contain incorrect words, spelling, and punctuation that were not noted in checking the note before signing. Portions of this documentation have been copied and pasted from previous office visit notes to provide a cohesive continuity of the history. The note has been reviewed, edited, and updated, as necessary. Follow Up: 9 Months HPI 10 M FU Chief Complaint: routine follow up HPI Comments Details: This patient presents to the office today for follow-up of her severe persistent asthma. She is ambulatory and on room air. She has not recently been seen in the ED or urgent care for any respiratory illness. She has not required any antibiotics or prednisone for any breathing problems. She is no longer on any maintenance inhalers. She has not needed her rescue inhaler at all. She is compliant with use of Nucala once monthly injections. She does not require any other maintenance medications. Currently she denies any shortness of breath. She denies any cough, sputum production or hemoptysis. She denies any wheezing, chest tightness, chest pain or palpitations. She also denies any fever, chills or body aches. Intake Vital Signs 10/05/24 07:46 10/16/24 11:26 07/16/25 13:23 Height 5 ft 2 in 5 ft 2 in 5 ft 2 in Weight: 137 lb BMI 25.0 BP 130/74 H Blood Pressure Location Rt brachial Position Sitting Respiration 18 Pulse 70 Pulse Source Monitor Temp 97.4 F L Temperature Source Temporal Artery Pulse Oximetry (%) 97 Oxygen Delivery Method room air Intake Visit Reasons: 10 M FU Chief Complaint: N/a Ingot Weigher Required: No Accompanied by: Self Is patient in pain?: No Allergies No Known Allergies Allergy (Verified 07/16/25 13:22) Medications ???Medication ???Instructions ???Recorded ???Confirmed ???Type calcium 600 mg (as carbonate)-vit 1 tab PO QDAY 11/16/17 07/16/25 H istory D3 10 mcg (400 unit) chewable tablet (Calcium 600 with Vitamin D3) verapamil 180 mg 24 hr 180 mg PO QDAY BP 11/16/17 5 History capsule,extended release hydrochlorothiazide 25 mg tablet 25 mg PO QAM bp 07/15/20 07/16/25 History levothyroxine 25 mcg tablet 50 mcg PO DAILY thyroid 07/26/20 1 09/15/24 History budesonide-formoterol HFA 160 2 puff inhalation BID #10.2 grams 07/06/23 07/16/25 Rx mcg-4.5 mcg/actuation aerosol inhaler (Symbicort) mepolizumab 100 mg/mL subcutaneous 100 mg subcut Q4W #1 mL 09/15/23 07/16/25 Rx auto-injector (Nucala) estradiol 0.01% (0.1 mg/gram) See Rx Instructions vaginal 07/16/25 Rx vaginal cream .COMPLEX #42.5 grams vibegron 75 mg tablet (Gemtesa) 75 mg PO QDAY 10/05/24 07/16/25 Hi story clobetasol 0.05 % topical ointment 1 applic topical .COMPLEX #15 gr ams 10/16/24 07/16/25 Rx omeprazole 40 mg capsule,delayed 40 mg PO ONCE reflux 07/16/2507/07 History release Have you fallen in the past year?: No PFSH Medical History Eyelid retraction or lag Vaccine counseling Acute viral bronchitis Leukocytosis Chronic cough Hemorrhoids Fundic gland polyps of stomach, benign Eosinophilic esophagitis GERD (gastroesophageal reflux disease) Histo (more content not included)... Normal [facility] Bone density reportOrdered B y: Sergio Yang on 04-03-2025 Study report Skeletal system DXA [facility] Imaging Services [address] [place], [place] [id number] Dexa Bone Density Study MR#: [id number] Acct: [id number] Name: JAKY SPENCER Rep #: [id number] : 1950 F 74 From: Dmitriy Yang MD PCP: Dr. Nikky Tabor DO Status: RE G CLI Study:Dexa Bone Density Study Date of Exam: 04/03/25 Exam# [id number] Ordering Dr: Ralph Tabor DO PROCEDURE: DEXA BONE DENSITY STUDY 04/03/2025 REASON FOR EXAM: F, age 74 y/o . Postmenopausal. TECHNIQUE: DEXA BONE DENSITY STUDY COMPARISON: Prior study dated April 01, 2023. FINDINGS: BMD and T-SCORES Lumbar spine: 1.071 g/cm2, T-score 0.5 Levels: L1 through L4 Change from prior: Improvement of 2.2%. Left femoral neck: 0.678 g/cm2, T-score -1.5 Femoral neck comparison data not recommended for monitoring change. Left total hip: 0.859 g/cm2, T-score -0.7 Change from prior: Worsening of 2.8%. Right femoral neck: 0.709 g/cm2, T-score -1.3 Femoral neck comparison data not recommended for monitoring change. Right total hip: 0.890 g/cm2, T-score -0.4 Change from prior: Loss of 2.8%. The World Health Organization has defined the following categories based on bonedensity: Normal bone density: T-score equal to or greater than -1.0 Osteopenia: T-score between -1.0 and -2.5 Osteoporosis: T-score equal to or less than -2.5 The patient does meet the pharmacological treatment recommendations for prevention of osteoporosis. BD/Dexa Bone Density Study IMPRESSION: OSTEOPENIA. Recommend follow-up as clinically warranted. Reading Location: [id number] CC: Dr. Nikky Tabor DO ~ Manager It Training: Signed [facility] Dexa Bone Density Studyon Dexa Bone Density Study [facility] Imaging Services [address] [place] [id number] Dexa Bone Density Study MR#: [id number] Acct: [id number] Name: JAKY SPENCER Rep #: [id number] : 1950 F 74 From: Sergio toro MD PCP: Dr. Nikky Tabor DO Status: REG CLI Study: Dexa Bone Density Study Date of Exam: 04/03/25 Exam# [id number] Ordering Dr: Nikky Tabor DO PROCEDURE: DEXA BONE DENSITY STUDY 04/03/2025 REASON FOR EXAM: F, age 74 y/o . Postmenopausal. TECHNIQUE: DEXA BONE DENSITY STUDY COMPARISON: Prior study dated April 01, 2023. FINDINGS: BMD and T-SCORES Lumbar spine: 1.071 g/cm2, T-score 0.5 Levels: L1 through L4 Change from prior: Improvement of 2.2%. Left femoral neck: 0.678 g/cm2, T-score -1.5 Femoral neck comparison data not recommended for monitoring change. Left total hip: 0.859 g/cm2, T-score -0.7 Change from prior: Worsening of 2.8%. Right femoral neck: 0.709 g/cm2, T-score -1.3 Femoral neck comparison data not recommended for monitoring change. Right total hip: 0.890 g/cm2, T-score -0.4 Change from prior: Loss of 2.8%. The World Health Organization has defined the following categories based on bone density: Normal bone density: T-score equal to or greater than -1.0 Osteopenia: T-score between -1.0 and -2.5 Osteoporosis: T-score equal to or less than -2.5 The patient does meet the pharmacological treatment recommendations for prevention of osteoporosis. BD/Dexa Bone Density Study IMPRESSION: OSTEOPENIA. Recommend follow-up as clinically warranted. Reading Location: [id number] CC: Dr. Nikky Tabor, Manager It Training: Signed Normal [facility] SCRN MAMM (CAD)W/DARREN BILATo n 01-02-2025 SCRN MAMM (CAD)W/DARREN BILAT [facility] Imaging Services [address] [place], [place] [id number] SCRN MAMM (CAD)W/DARREN BILAT MR#: [id number] Acct: [id number] Name: JAKY SPENCER Rep #: [id number] : 1950 F 74 From: Jolly Moeller MD PCP: Dr. Nikky Tabor, Status: REG CLI Study: SCRN MAMM (CAD)W/DARREN BILAT Date of Exam: 12/06 05/31 Exam# [id number] Ordering Dr: Anna Cho SOFT BOARDER SOFT BOARDER -C EXAM: SCRN MAMM (CAD)W/DARREN BILAT 01/02/2025 CLINICAL HISTORY: F, Age 74 y/o , SCREENING FOR BREAST CANCER TECHNIQUE: Bilateral screening digital breast tomosynthesis with 2D and 3D images. Computer aided detection. COMPARISON: Prior exam(s) dated 12/31/2023, 12/29/2022, 12/25/2021, 12/24/2020. FINDINGS: TISSUE DENSITY: The breast tissue is heterogenously dense, which may obscure small masses. The mammogram demonstrates that the patient has dense breasts. Supplemental screening with whole breast ultrasound or MRI may be considered for further evaluation. Bilateral Breast Mammographic Findings: No significant masses, calcifications or other abnormalities are identified. BI/SCRN MAMM (CAD)W/DARREN BILAT IMPRESSION: Right Breast: BIRADS 1 NEGATIVE. Left Breast: BIRADS 1 NEGATIVE. OVERALL FINAL ASSESSMENT: BIRADS 1 NEGATIVE. RECOMMENDATION: Routine annual follow-up in 1 Year A letter with findings and recommendations will be mailed to the patient. Reading Location: [facility] CC: SHAKILA Cho; Dr. Nikky Tabor DO Manager It Training: Signed Normal [facility] Senior Business Development Manager Office Visit Reporton 10-16-2024 Senior Business Development Manager Office Visit Report [facility] [address], [address] [place] [address] OFFICE VISIT Date of Service: 10/16/24 MR#: [id number] Acct: [id number] Name: JAKY SPENCER Rep #: [id number] : 1950 Provider: SHAKILA gomes Age/Sex: 73/F Location: [facility] Status: Signed Intake Vital Signs 10/12/23 11:28 10/05/24 07:46 10/16/24 11:15 10/16/24 11:26 Height 5 ft 2 in 5 ft 2 in 5 ft 2 in 5 ft 2 in Weight: 156 lb 6 oz BMI 28.5 BP 136/80 H 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) Chief Complaint: Annual Ingot Weigher Required: No Is patient in pain?: No Allergies No Known Allergies Allergy (Verified 10/16/24 11:14) Medications ???Medication ???Instructions ???Recorded ???Confirmed ???Type calcium 600 mg (as carbonate)-vit 1 tab PO QDAY 11/16/17 10/16/24 H istory D3 10 mcg (400 unit) chewable tablet (Calcium 600 with Vitamin D3) verapamil 180 mg 24 hr 180 mg PO QDAY BP 03/13/18 02/10/2 5 History capsule,extended release hydrochlorothiazide 25 mg tablet 25 mg PO QAM bp 07/15/20 10/16/24 History levothyroxine 25 mcg tablet 50 mcg PO DAILY thyroid 07/26/20 0 10/16/24 History ipratropium bromide 21 mcg (0.03 2 spray intranasal BID-TID PRN 10/16/24 Rx %) nasal spray cough #30 mL omeprazole 40 mg capsule,delayed 40 mg PO BID reflux #60 caps 10/2610/16/24 Rx release budesonide-formoterol HFA 160 2 puff inhalation BID #10.2 grams 07/06/23 10/16/24 Rx mcg-4.5 mcg/actuation aerosol inhaler (Symbicort) cetirizine 10 mg tablet 10 mg PO DAILY PRN allergy 3 10/16/24 Rx symptoms #90 tabs fluticasone propionate 50 2 spray intranasal DAILY #16 grams 08/18/23 10/16/24 Rx mcg/actuation nasal spray,suspension montelukast 10 mg tablet 10 mg PO QPM #90 tabs 08/18/2306/30 Rx mepolizumab 100 mg/mL subcutaneous 100 mg subcut Q4W #1 mL 09/15/23 10/16/24 Rx auto-injector (Nucala) estradiol 0.01% (0.1 mg/gram) See Rx Instructions vaginal 10/16/24 Rx vaginal cream .COMPLEX #42.5 grams vibegron 75 mg tablet (Gemtesa) 75 mg PO QDAY 10/05/24 10/16/24 Hi story clobetasol 0.05 % topical ointment 1 applic topical .COMPLEX #15 gr ams 10/16/24 10/16/24 Rx Is last menstrual period known: No Post menopausal: Yes Patient : No : No PFSH Medical History Eyelid retraction or lag Vaccine counseling Acute viral bronchitis Leukocytosis Chronic cough Hemorrhoids Fundic gland polyps of stomach, benign Eosinophilic esophagitis GERD (gastroesophageal reflux disease) History of malignant melanoma HTN (hypertension) Surgical History S/P colonoscopy ( 11/29/17) H/O esophagogastroduodenosc opy ( 11/29/17) S/P laparoscopic cholecystectomy H/O section Family History Mother No problems noted. Brother Bladder cancer Social History household members: spouse Smoking Status: Never smoker second hand exposure: No alcohol intake: never substance use type: does not use caffeine: Yes what type of physical activity do you participate in: walking frequency: 1-2 times per week seatbelt use: always do you feel safe at home: Yes additional social history: - God[place] History 2 Elective abortions Hx Para 2 Spontaneous abortions Hx # Term Pregnancies Ectopic pregnancies Hx # Pregnancies Multiple births # of living children 2 Past Pregnancies Del. Date Name GA/Weeks Outcome Route Bth Weight Gen Labor Lgth Anesthesia Del Locatn Provider FOB Unknown Puja 1976 Unknown Annette 1978 HPI Encounter for routine gynecological examination Details: JAKY SPENCER is a 73 year old who presents for annual exam. Needs refill clobetesol, using 1-2 times a month. Last PAP: NA History of abnormal PAP: no Last mammogram: 12/2023 History of abnormal mammogram: no Colon cancer screenin Other preventative health care screenings: [place] Female Reproductive History Questions: metorrhagia: No and sexually active: No Menopausal Treatment: No HRT, No Vaginal Estrogen, No Osphena, No OTC treatments and No prescription non-hormonal treatment ROS Const Constitutional: Denies fatigue, weight gain or weight loss Cardio Card: Denies chest pain Resp Resp: Denies cough or dyspnea on exertion GI GI: Denies abdominal pain, bloating, change in stool character, constipation or vomiting : Reports as per HPI; Denies difficulty voiding, pelvic pain, urinary frequency, urinary incontinence, urinary urgency, (more content not included)... Normal [facility] Pulmonary Visit Reporton Pulmonary Visit Report [facility] [place] [address] [place] [address] OFFICE VISIT Date of Service: 10/05/24 MR#: [id number] Acct: [id number] Name: JAKY SPENCER Rep #: [id number] : 1950 Provider: SHAKILA Mondragon Age/Sex: 73/F [place] [facility] [place] Status: Signed Assessment and Plan Assessment and Plan (1) Allergic asthma: Status: Chronic Qualifiers: Asthma complication type: uncomplicated Asthma persistence: persistent Asthma severity: severe Qualified Code(s): J45.50 - Severe persistent asthma, uncomplicated Plan: Stable, she has no signs of exacerbation of asthma today. No change in maintenance medications, completely controlled with the use of Nucala. No additional testing at this time, I consider repeating her pulmonary function test, however previous 1 was normal. Contact the office with any signs of new or worsening symptoms. Follow-up in 1 year. HPI HPI Comments Details: This patient presents to the office today for follow-up of her severe persistent asthma. She is ambulatory and currently on room air. She has not recently been seen in the ED or urgent care for any respiratory illness. She has not required any antibiotics or prednisone for any breathing problems. She is no longer on any maintenance inhalers. She has not needed her rescue inhaler at all. She is compliant with use of Nucala once monthly injections. She does not require any other maintenance medications. Currently she denies any shortness of breath. She denies any cough, sputum production or hemoptysis. She denies any wheezing, chest tightness, chest pain or palpitations. She also denies any fever, chills or body aches. Intake Vital Signs 12/13/23 07:34 10/05/24 07:46 Height 5 ft 2 in 5 ft 2 in Weight: 157 lb BMI 28.7 BP 162/88 H Blood Pressure Location Lt brachial Position Sitting Respiration 18 Pulse 66 Pulse Source Monitor Temp 97.4 F L Temperature Source Temporal Artery Pulse Oximetry (%) 97 Oxygen Delivery Method room air Intake Visit Reasons: 6 M FU Ingot Weigher Required: No DME Vendor: n/a Accompanied by: Self Is patient in pain?: No Allergies No Known Allergies Allergy (Verified 10/05/24 13:08) Medications ???Medication ???Instructions ???Recorded ???Confirmed ???Type calcium 600 mg (as carbonate)-vit 1 tab PO QDAY 11/16/17 10/05/24 H istory D3 10 mcg (400 unit) chewable tablet (Calcium 600 with Vitamin D3) verapamil 180 mg 24 hr 180 mg PO QDAY BP 11/16/17 5 History capsule,extended release hydrochlorothiazide 25 mg tablet 25 mg PO QAM bp 07/15/20 10/05/24 History levothyroxine 25 mcg tablet 50 mcg PO DAILY thyroid 07/26/20 0 10/05/24 History clobetasol 0.05 % topical ointment 1 applic topical .COMPLEX #15 gr ams 10/07/22 10/05/24 Rx ipratropium bromide 21 mcg (0.03 2 spray intranasal BID-TID PRN 10/05/24 Rx %) nasal spray cough #30 mL omeprazole 40 mg capsule,delayed 40 mg PO BID reflux #60 caps 10/2610/05/24 Rx release budesonide-formoterol HFA 160 2 puff inhalation BID #10.2 grams 07/06/23 10/05/24 Rx mcg-4.5 mcg/actuation aerosol inhaler (Symbicort) cetirizine 10 mg tablet 10 mg PO DAILY PRN allergy 3 10/05/24 Rx symptoms #90 tabs fluticasone propionate 50 2 spray intranasal DAILY #16 grams 08/18/23 10/05/24 Rx mcg/actuation nasal spray,suspension montelukast 10 mg tablet 10 mg PO QPM #90 tabs 08/18/23 Rx mepolizumab 100 mg/mL subcutaneous 100 mg subcut Q4W #1 mL 09/15/23 10/05/24 Rx auto-injector (Nucala) estradiol 0.01% (0.1 mg/gram) See Rx Instructions vaginal 10/05/24 Rx vaginal cream .COMPLEX #42.5 grams vibegron 75 mg tablet (Gemtesa) 75 mg PO QDAY 10/05/24 10/05/24 Hi story Have you fallen in the past year?: No PFSH Medical History Eyelid retraction or lag Vaccine counseling Acute viral bronchitis Leukocytosis Chronic cough Hemorrhoids Fundic gland polyps of stomach, benign Eosinophilic esophagitis GERD (gastroesophageal reflux disease) History of malignant melanoma HTN (hypertension) Surgical History S/P colonoscopy ( 11/29/17) H/O esophagogastroduodenosc opy ( 11/29/17) S/P laparoscopic cholecystectomy H/O section Family History Mother No problems noted. Brother Bladder cancer Social History household members: spouse Smoking Status: Never smoker second hand exposure: No alcohol intake: never substance use type: does not use caffeine: Yes what type (more content not included)... Normal [facility] Absolute lymphocyte countOrd ered By: Leda Mondragon on 09-15-2023 Lymphocytes Auto (Unsp spec) [#/Vol] 2.48 10*3/uL 0.83-4.51 [facility] Basophil percentageOrdered B y: Leda Mondragon on 09-15-2023 Basophils/100 WBC (Bld) 0.5 % 0-1 [facility] Eosinophils/100 WBC (Bld) 5.7 % 0-5 [facility] Neutrophils (Bld) [#/Vol] 5.3 10*3/uL 2.0-7.7 [facility] Neutrophils/100 WBC (Bld) 57.8 % 47-70 [facility] WBC (Bld) [#/Vol] 9.1 10*3/uL 4.4-11.0 [facility] Blood erythrocytes count (nu mber/volume)Ordered By: Leda Mondragon on 09-15-2023 RBC (Bld) [#/Vol] 5.06 10*6/uL 4.2-5.4 [facility] Blood hemoglobin measurement (mass/volume)Ordered By: Leda Mondragon on 09-15-2023 Hemoglobin (Bld) [Mass/Vol] 14.0 g/dL 12.0-15.0 [facility] Blood lymphocytes/100 leukoc ytesOrdered By: Leda Mondragon on 09-15-2023 Lymphocytes/100 WBC (Bld) 27.1 % 19-41 [facility] Blood monocytes/100 leukocyt esOrdered By: Leda Mondragon on 09-15-2023 Monocytes/100 WBC (Bld) 8.5 % 0-10 [facility] Blood platelet mean volumeOr dered By: Leda Mondragon on 09-15-2023 Platelet mean volume (Bld) [Entitic vol] 9.3 fL 6.2-12.0 [facility] Determination of erythrocyte mean corpuscular volume (MCV)Ordered By: Leda Mondragon on 09-15-2023 MCV (RBC) [Entitic vol] 85.6 fL 81-99 [facility] Hematocrit Auto (Bld) [Volum e fraction]Ordered By: Leda Mondragon on 09-15-2023 Hematocrit (Bld) [Volume fraction] 43.3 % 37-47 [facility] Laboratory - Hematology and Cell countsOrdered By: Leda Mondragon on 09-15-2023 Erythrocyte distribution width (RBC) [Entitic vol] 39.8 fL 35.1-43.9 [facility] Erythrocyte distribution width (RBC) [Ratio] 12.8 % 11.6-14.6 [facility] Immature granulocytes/100 WBC (Bld) 0.400 % 0.0-0.9 [facility] Comment on above: IG% - Immature Granu locytes (promyelocytes, myelocytes and metamyelocytes) > 1% indicates that a LEFT SHIFT is Present. MCH (RBC) [Entitic mass] 27.7 pg 27.0-32.0 [facility] Nucleated RBC/100 WBC (Bld) [Ratio] 0 % 0-5 [facility] MCHC Auto (RBC) [Mass/Vol]Or dered By: Leda Mondragon on 09-15-2023 MCHC (RBC) [Mass/Vol] 32.3 g/dL 32-36 [facility] Platelets bldOrdered By: Donaldo Mondragon on 09-15-2023 Platelets (Bld) [#/Vol] 347 10*3/uL 150-450 [facility] Absolute lymphocyte countOrd ered By: Leda Mondragon on 04-22-2023 Lymphocytes Auto (Unsp spec) [#/Vol] 2.22 10*3/uL 0.83-4.51 [facility] Alternaria alternata IgE ser umOrdered By: Leda Mondragon on 04-22-2023 A. alternata IgE Qn (S) <0.10 kU/L Class 0 [facility] Atypical perinuclear antineu trophil cytoplasmic antibodies measurementOrdered By: Leda Mondragon on 04-22-2023 Neutrophil cytoplasmic Ab.perinuclear.atypical IF (S) [Titer] <1:20 titer Neg:<1:20 [facility] Comment on above: The atypical pANCA p attern has been observed in asignificant percentage of patients with ulcerative colitis,primary sclerosing cholangitis and autoimmune hepatitis. Basophil percentageOrdered B y: Leda Mondragon on 04-22-2023 Basophils/100 WBC (Bld) 0.4 % 0-1 [facility] Eosinophils/100 WBC (Bld) 8.2 % 0-5 [facility] Neutrophils (Bld) [#/Vol] 4.4 10*3/uL 2.0-7.7 [facility] Neutrophils/100 WBC (Bld) 55.0 % 47-70 [facility] WBC (Bld) [#/Vol] 8.0 10*3/uL 4.4-11.0 [facility] Blood erythrocytes count (nu mber/volume)Ordered By: Leda Mondragon on 04-22-2023 RBC (Bld) [#/Vol] 4.93 10*6/uL 4.2-5.4 [facility] Blood hemoglobin measurement (mass/volume)Ordered By: Leda Mondragon on 04-22-2023 Hemoglobin (Bld) [Mass/Vol] 14.3 g/dL 12.0-15.0 [facility] Blood lymphocytes/100 leukoc ytesOrdered By: Leda Mondragon on 04-22-2023 Lymphocytes/100 WBC (Bld) 27.6 % 19-41 [facility] Blood monocytes/100 leukocyt esOrdered By: Leda Mondragon on 04-22-2023 Monocytes/100 WBC (Bld) 8.6 % 0-10 [facility] Blood platelet mean volumeOr dered By: Leda Mondragon on 04-22-2023 Platelet mean volume (Bld) [Entitic vol] 9.9 fL 6.2-12.0 [facility] Determination of erythrocyte mean corpuscular volume (MCV)Ordered By: Leda Mondragon on 04-22-2023 MCV (RBC) [Entitic vol] 84.4 fL 81-99 [facility] Gram stain for investigation of transfusion reactionOrdered By: Leda Mondragon on 04-22-2023 Microscopic observation Gram stain Nom [facility] Hematocrit Auto (Bld) [Volum e fraction]Ordered By: Leda Mondragon on 04-22-2023 Hematocrit (Bld) [Volume fraction] 41.6 % 37-47 [facility] Laboratory - Hematology and Cell countsOrdered By: Leda Mondragon on 04-22-2023 Erythrocyte distribution width (RBC) [Entitic vol] 40.0 fL 35.1-43.9 [facility] Erythrocyte distribution width (RBC) [Ratio] 13.0 % 11.6-14.6 [facility] Immature granulocytes/100 WBC (Bld) 0.200 % 0.0-0.9 [facility] Comment on above: IG% - Immature Granu locytes (promyelocytes, myelocytes and metamyelocytes) > 1% indicates that a LEFT SHIFT is Present. MCH (RBC) [Entitic mass] 29.0 pg 27.0-32.0 [facility] Nucleated RBC/100 WBC (Bld) [Ratio] 0 % 0-5 [facility] Laboratory - Miscellaneous t estsOrdered By: Leda Mondragon on 04-22-2023 Service comment ([facility] spec) [Interp] Comment . [facility] Comment on above: Levels of Specific I gE Class Description of Class ----- < 0.10 0 Negative 0.10 - 0.31 0/I Equivocal/Low 0.32 - 0.55 I Low 0.56 - 1.40 II Moderate 1.41 - 3.90 III High 3.91 - 19.00 IV Very High 19.01 - 100.00 V Very High >100.00 [facility] MCHC Auto (RBC) [Mass/Vol]Or dered By: Leda Mondragon on 04-22-2023 MCHC (RBC) [Mass/Vol] 34.4 g/dL 32-36 [facility] Microbial respiratory cultur eOrdered By: Leda Mondragon on 04-22-2023 Bacteria identified Respiratory culture Nom (Unsp spec) [facility] No Panel InformationOrdered By: Leda Mondragon on 04-22-2023 Common Ragweed (Short) Allergen 0.19 kU/L Class 0/I [facility] Tristanian Plantain Allergen (RAST) <0.10 kU/L Class 0 [facility] Immunoglobulin E 114 IU/mL 6-495 [facility] Comment on above: Performed at: [facility] [employer] [address] [id number] Director: Tonio Bose PhD, Phone: [phone] at: [employer] [id number] Director: Noble Fong MD, Phone: [phone] Mouse Urine Allergen IgE Antibody <0.10 kU/L Class 0 [facility] Comment on above: Performed at: [facility] [address] [id number] Director: Noble Fong MD, Phone: [phone] Platelets bldOrdered By: Donaldo Mondragon on 04-22-2023 Platelets (Bld) [#/Vol] 327 10*3/uL 150-450 [facility] Serum Aspergillus flavus ant ibody detection by immunodiffusionOrdered By: Leda Mondragon on 04-22-2023 A. flavus Ab Immune diff Ql (S) Negative Neg:<1:1 [facility] Serum Aspergillus fumigatus antibody detection by immunodiffusionOrdered By: Leda Mondragon on 04-22-2023 A. fumigatus Ab Immune diff Ql (S) Negative Neg:<1:1 [facility] Serum Aspergillus niger anti body detection by immunodiffusionOrdered By: Leda Mondragon on 04-22-2023 A. niger Ab Immune diff Ql (S) Negative Neg:<1:1 [facility] Serum Bermuda grass IgE anti body assay (units/volume)Ordered By: Leda Mondragon on 04-22-2023 Bermuda grass IgE Qn (S) 0.23 kU/L Class 0/I [facility] Serum Dermatophagoides farin ae specific IgE antibody assay (units/volume)Ordered By: Leda Mondragon on 04-22-2023 [place] house dust mite IgE Qn (S) <0.10 kU/L Class 0 [facility] Serum house dust mi te IgE antibody assay (units/volume)Ordered By: Leda Mondragon on 04-22-2023 house dust mite IgE Qn (S) <0.10 kU/L Class 0 [facility] Serum [place] blue grass Ig E antibody assay (units/volume)Ordered By: Leda Mondragon on 04-22-2023 [place] blue grass IgE Qn (S) 3.61 kU/L Class III [facility] Serum cat dander IgE antibod y assay (units/volume)Ordered By: Leda Mondragon on 04-22-2023 Cat dander IgE Qn (S) <0.10 kU/L Class 0 [facility] Serum classic neutrophil cyt oplasmic antibody assay (units/volume)Ordered By: Leda Mondragon on 04-22-2023 Neutrophil cytoplasmic Ab.classic Qn (S) <1:20 titer Neg:<1:20 [facility] Serum dog epithelium IgE ant ibody assay (units/volume)Ordered By: Leda Mondragon on 04-22-2023 Dog epithelium IgE Qn (S) <0.10 kU/L Class 0 [facility] Serum perinuclear neutrophil cytoplasmic antibody titer by immunofluorescenceOrdered By: Leda Mondragon on 04-22-2023 Neutrophil cytoplasmic Ab.perinuclear IF (S) [Titer] <1:20 titer Neg:<1:20 [facility] Comment on above: The presence of posi tive fluorescence exhibiting P-ANCA orC-ANCA patterns alone is not specific for the diagnosis ofWegener's Granulomatosis (WG) or microscopic polyangiitis.Decisions about treatment should not be based solely onANCA IFA results. The [employer] ANCA Group Consensusrecommends follow up testing of positive sera with both MD-3 and MPO-ANCA enzyme immunoassays. As many as 5% serumsamples are positive only by EIA. Ref. AM J Clin [id number];111:507-513. Serum white elm IgE antibody assay (units/volume)Ordered By: Leda Mondragon on 04-22-2023 White Elm IgE Qn (S) <0.10 kU/L Class 0 [facility] Serum white oak IgE antibody assay (units/volume)Ordered By: Leda Mondragon on 04-22-2023 [place] IgE Qn (S) <0.10 kU/L Class 0 [facility] CALCIFIDIOL ([id number]) VIT D 25 Ordered By: Flight Reservations Manager on 01-14-2023 25-hydroxyvitamin D [Mass/Vol] 164.8 ng/mL Abnormal 30.0-100.0 [facility]; [facility] Work Phone: CBC W/AUTO DIFF WBC ([id number])O rdered By: Flight Reservations Manager on 01-14-2023 Basophils (Bld) [#/Vol] 0.0 10*3/uL Normal 0.0-0.2 [facility]; [facility] Work Phone: Basophils/100 WBC (Bld) 0 % Normal [facility]; [facility] Work Phone: Eosinophils (Bld) [#/Vol] 0.4 10*3/uL Normal 0.0-0.4 [facility]; [facility] Work Phone: Eosinophils/100 WBC (Bld) 4 % Normal [facility]; [facility] Work Phone: Erythrocyte distribution width (RBC) [Ratio] 13.1 % Normal 11.7-15.4 [facility]; [facility] Work Phone: Hematocrit (Bld) [Volume fraction] 40.0 % Normal 34.0-46.6 [facility]; [facility] Work Phone: Hemoglobin (Bld) [Mass/Vol] 13.1 g/dL Normal 11.1-15.9 [facility]; [facility] Work Phone: Immature granulocytes (Bld) [#/Vol] 0.1 10*3/uL Normal 0.0-0.1 [facility]; [facility] Work Phone: Immature granulocytes/100 WBC (Bld) 2 % Normal [facility]; [facility] Work Phone: Lymphocytes (Bld) [#/Vol] 3.2 10*3/uL Abnormal 0.7-3.1 [facility]; [facility] Work Phone: Lymphocytes/100 WBC (Bld) 35 % Normal [facility]; [facility] Work Phone: MCH (RBC) [Entitic mass] 27.8 pg Normal 26.6-33.0 [facility]; [facility] Work Phone: MCHC (RBC) [Mass/Vol] 32.8 g/dL Normal 31.5-35.7 [facility]; [facility] Work Phone: MCV (RBC) [Entitic vol] 85 fL Normal 79-97 [facility]; [facility] Work Phone: Monocytes (Bld) [#/Vol] 0.7 10*3/uL Normal 0.1-0.9 [facility]; [facility] Work Phone: Monocytes/100 WBC (Bld) 8 % Normal [facility]; [facility] Work Phone: Neutrophils (Bld) [#/Vol] 4.6 10*3/uL Normal 1.4-7.0 [facility]; [facility] Work Phone: Neutrophils/100 WBC (Bld) 51 % Normal [facility]; [facility] Work Phone: Platelets (Bld) [#/Vol] 407 10*3/uL Normal 150-450 [facility]; [facility] Work Phone: RBC (Bld) [#/Vol] 4.71 10*6/uL Normal 3.77-5.28 [facility]; [facility] Work Phone: WBC (Bld) [#/Vol] 9.0 10*3/uL Normal 3.4-10.8 [facility]; [facility] Work Phone: LIPID PANEL ([id number])Ordered B y: Flight Reservations Manager on 01-14-2023 Cholesterol [Mass/Vol] 160 mg/dL Normal 100-199 [facility]; [facility] Work Phone: Cholesterol in HDL [Mass/Vol] 54 mg/dL Normal [facility]; [facility] Work Phone: Triglyceride [Mass/Vol] 145 mg/dL Normal 0-[address] [facility] Internal [facility]; [facility] Work Phone: LIPID PANEL ([id number]) 25 mg/dL Normal 5-40 [facility]; [facility] Work Phone: LIPID PANEL ([id number]) 81 mg/dL Normal 0-99 [facility]; [facility] Work Phone: LIPID PANEL ([id number]) 1.5 {ratio} Normal 0.0-3.2 [facility]; [facility] Work Phone: METABOLIC PANEL, COMPREHENSI VE ([id number])Ordered By: Flight Reservations Manager on 01-14-2023 Albumin [Mass/Vol] 3.9 g/dL Normal 3.7-4.7 [facility] Internal [facility]; [facility] Work Phone: Albumin/Globulin [Mass ratio] 2.0 {ratio} Normal 1.2-2.2 [facility]; [facility] Work Phone: ALP [Catalytic activity/Vol] 86 U/L Normal 44-121 [facility]; [facility] Work Phone: ALT [Catalytic activity/Vol] 18 U/L Normal 0-32 [facility]; [facility] Work Phone: AST [Catalytic activity/Vol] 14 U/L Normal 0-40 [facility]; [facility] Work Phone: Bilirubin [Mass/Vol] 0.4 mg/dL Normal 0.0-1.2 [facility]; [facility] Work Phone: Calcium [Mass/Vol] 10.4 mg/dL Abnormal 8.7-10.3 [facility]; [facility] Work Phone: Chloride [Moles/Vol] 103 mmol/L Normal 96-106 [facility]; [facility] Work Phone: CO2 [Moles/Vol] 24 mmol/L Normal 20-29 [facility]; [facility] Work Phone: Creatinine [Mass/Vol] 0.74 mg/dL Normal 0.57-1.00 [facility]; [facility] Work Phone: Globulin (S) [Mass/Vol] 2.0 g/dL Normal 1.5-4.5 [facility]; [facility] Work Phone: Glucose [Mass/Vol] 82 mg/dL Normal 70-99 [facility]; [facility] Work Phone: Potassium [Moles/Vol] 3.8 mmol/L Normal 3.5-5.2 [facility]; [facility] Work Phone: Protein [Mass/Vol] 5.9 g/dL Abnormal 6.0-8.5 [facility]; [facility] Work Phone: Sodium [Moles/Vol] 142 mmol/L Normal 134-144 [facility]; [facility] Work Phone: Urea nitrogen [Mass/Vol] 13 mg/dL Normal 8-27 [facility]; [facility] Work Phone: Urea nitrogen/Creatinine [Mass ratio] 18 mg/mg Normal 12-28 [facility]; [facility] Work Phone: METABOLIC PANEL, COMPREHENSIVE ([id number]) 85 mL/min/1.73 [facility]; [facility] Work Phone: MICROALBUMINOrdered By: Syst em Electroencephalographic Technologist on 01-14-2023 Albumin DL <= 20 mg/L (U) [Mass/Vol] 3.8 ug/mL Normal [facility]; [facility] Work Phone: Albumin/Creatinine (U) [Mass ratio] 3 {mg/g_creat} Normal 0-29 [facility]; [facility] Work Phone: Creatinine (U) [Mass/Vol] 114.1 mg/dL Normal [facility]; [facility] Work Phone: TSH ([id number])Ordered By: GardenStorye m Electroencephalographic Technologist on 01-14-2023 TSH Qn 4.040 {uIU/mL} Normal 0.450-4.50 0 [facility]; [facility] Work Phone: URINALYSIS, W/ MICRO ([id number]) Ordered By: Flight Reservations Manager on 01-14-2023 Appearance (U) Clear Normal [facility] Medicine; [facility] Work Phone: Bilirubin Ql (U) Negative Normal Comprehe nsive Internal Medicine; [facility] Work Phone: Color (U) Yellow Normal [facility]; [facility] Work Phone: Glucose Ql (U) Negative Normal Comprehens [facility]; [facility] Work Phone: Hemoglobin Ql (U) Negative Normal Compreh ensive [facility]; [facility] Work Phone: Ketones Ql (U) Negative Normal Comprehens [facility]; [facility] Work Phone: Leukocyte esterase Test strip Ql (U) Negative Normal [facility]; [facility] Work Phone: Microscopic observation LM Nom (Urine sed) MICRON Normal [facility]; [facility] Work Phone: Microscopic observation LM Nom (Urine sed) See below: Normal [facility]; [facility] Work Phone: Nitrite Ql (U) Negative Normal Com[facility]; [facility] Work Phone: pH (U) 6.0 [pH] Normal 5.0-7.5 [facility]; [facility] Work Phone: Protein Ql (U) Negative Normal Comprehens [facility]; [facility] Work Phone: Specific gravity (U) [Rel density] 1.018 1 Normal 1.005-1.03 0 [facility]; [facility] Work Phone: Urobilinogen (U) [Mass/Vol] 0.2 mg/dL Normal 0.2-1.0 [facility]; [facility] Work Phone: Absolute lymphocyte countOrd ered By: Dr. Tran on 01-08-2023 Lymphocytes Auto (Unsp spec) [#/Vol] 2.39 10*3/uL 0.83-4.51 [facility] Basophil percentageOrdered B y: Dr. Tran on 01-08-2023 Basophils/100 WBC (Bld) 0.4 % 0-1 [facility] Eosinophils/100 WBC (Bld) 4.6 % 0-5 [facility] Neutrophils (Bld) [#/Vol] 4.5 10*3/uL 2.0-7.7 [facility] Neutrophils/100 WBC (Bld) 55.6 % 47-70 [facility] WBC (Bld) [#/Vol] 8.1 10*3/uL 4.4-11.0 [facility] Blood erythrocytes count (nu mber/volume)Ordered By: Dr. Tran on 01-08-2023 RBC (Bld) [#/Vol] 4.64 10*6/uL 4.2-5.4 [facility] Blood hemoglobin measurement (mass/volume)Ordered By: Dr. Tran on 01-08-2023 Hemoglobin (Bld) [Mass/Vol] 13.0 g/dL 12.0-15.0 [facility] Blood lymphocytes/100 leukoc ytesOrdered By: Dr. Tran on 01-08-2023 Lymphocytes/100 WBC (Bld) 29.7 % 19-41 [facility] Blood monocytes/100 leukocyt esOrdered By: Dr. Tran on 01-08-2023 Monocytes/100 WBC (Bld) 9.2 % 0-10 [facility] Blood platelet mean volumeOr dered By: Dr. Tran on 01-08-2023 Platelet mean volume (Bld) [Entitic vol] 9.2 fL 6.2-12.0 [facility] Determination of erythrocyte mean corpuscular volume (MCV)Ordered By: Dr. Tran on 01-08-2023 MCV (RBC) [Entitic vol] 85.8 fL 81-99 [facility] Hematocrit Auto (Bld) [Volum e fraction]Ordered By: Dr. Tran on 01-08-2023 Hematocrit (Bld) [Volume fraction] 39.8 % 37-47 [facility] Laboratory - Hematology and Cell countsOrdered By: Dr. Tran on 01-08-2023 Erythrocyte distribution width (RBC) [Entitic vol] 42.1 fL 35.1-43.9 [facility] Erythrocyte distribution width (RBC) [Ratio] 13.4 % 11.6-14.6 [facility] Immature granulocytes/100 WBC (Bld) 0.500 % 0.0-0.9 [facility] Comment on above: IG% - Immature Granu locytes (promyelocytes, myelocytes and metamyelocytes) > 1% indicates that a LEFT SHIFT is Present. MCH (RBC) [Entitic mass] 28.0 pg 27.0-32.0 [facility] Nucleated RBC/100 WBC (Bld) [Ratio] 0 % 0-5 [facility] MCHC Auto (RBC) [Mass/Vol]Or dered By: Dr. Tran on 01-08-2023 MCHC (RBC) [Mass/Vol] 32.7 g/dL 32-36 [facility] Platelets bldOrdered By: Dr. Tran on 01-08-2023 Platelets (Bld) [#/Vol] 373 10*3/uL 150-450 [facility] Absolute lymphocyte countOrd ered By: Bobby Escobedo on 12-19-2022 Lymphocytes Auto (Unsp spec) [#/Vol] 0.99 10*3/uL 0.83-4.51 [facility] Basophil percentageOrdered B y: Bobby Escobedo on 12-19-2022 Basophils/100 WBC (Bld) 0.2 % 0-1 [facility] Bilirubin [Mass/Vol] 0.40 mg/dL 0.20-1.00 [facility] Comment on above: For patients on eltr ombopag therapy, use of Dimension [place] TBIL is not recommended. Chloride [Moles/Vol] 105 mmol/L 98-107 [facility] Eosinophils/100 WBC (Bld) 0.0 % 0-5 [facility] Glucose [Mass/Vol] 141 mg/dL 74-106 [facility] Comment on above: Fasting Glucose resu lt greater than or equal to 126 mg/dL suggests DIABETES MELLITUS per A.D.A. criteria. Neutrophils (Bld) [#/Vol] 14.8 10*3/uL 2.0-7.7 [facility] Neutrophils/100 WBC (Bld) 89.4 % 47-70 [facility] Potassium [Moles/Vol] 2.8 mmol/L 3.5-5.1 [facility] Protein [Mass/Vol] 8.0 g/dL 6.4-8.2 [facility] Sodium [Moles/Vol] 137 mmol/L 136-145 [facility] WBC (Bld) [#/Vol] 16.5 10*3/uL 4.4-11.0 [facility] Blood erythrocytes count (nu mber/volume)Ordered By: Bobby Escobedo on 12-19-2022 RBC (Bld) [#/Vol] 5.50 10*6/uL 4.2-5.4 [facility] Blood hemoglobin measurement (mass/volume)Ordered By: Bobby Escobedo on 12-19-2022 Hemoglobin (Bld) [Mass/Vol] 15.3 g/dL 12.0-15.0 [facility] Blood lymphocytes/100 leukoc ytesOrdered By: Bobby Escobedo on 12-19-2022 Lymphocytes/100 WBC (Bld) 6.0 % 19-41 [facility] Blood monocytes/100 leukocyt esOrdered By: Bobby Escobedo on 12-19-2022 Monocytes/100 WBC (Bld) 4.0 % 0-10 [facility] Blood platelet mean volumeOr dered By: Bobby Escobedo on 12-19-2022 Platelet mean volume (Bld) [Entitic vol] 9.9 fL 6.2-12.0 [facility] Determination of erythrocyte mean corpuscular volume (MCV)Ordered By: Bobby Escobedo on 12-19-2022 MCV (RBC) [Entitic vol] 83.3 fL 81-99 [facility] Hematocrit Auto (Bld) [Volum e fraction]Ordered By: Bobby Escobedo on 12-19-2022 Hematocrit (Bld) [Volume fraction] 45.8 % 37-47 [facility] Laboratory - Chemistry and C hemistry - challengeOrdered By: Bobby Escobedo on 12-19-2022 ALP [Catalytic activity/Vol] 101 U/L 45-117 [facility] ALT [Catalytic activity/Vol] 47 U/L 13-56 [facility] CO2 [Moles/Vol] 21.0 mmol/L 21.0-32.0 [facility] Globulin (S) [Mass/Vol] 4.0 g/dL 2.2-4.2 [facility] Lipase [Catalytic activity/Vol] 27 U/L 13-75 [facility] Comment on above: Please note:LIPASE r evised reference range effective 22. New Lipase methodology. Expected to produce lower values than the previous assay method. NEW Reference Range: 13 - 75 U/L Urea nitrogen/Creatinine [Mass ratio] 21.6 mg/mg 10-20 [facility] Laboratory - Hematology and Cell countsOrdered By: Bobby Escobedo on 12-19-2022 Erythrocyte distribution width (RBC) [Entitic vol] 40.1 fL 35.1-43.9 [facility] Erythrocyte distribution width (RBC) [Ratio] 13.2 % 11.6-14.6 [facility] Immature granulocytes/100 WBC (Bld) 0.400 % 0.0-0.9 [facility] Comment on above: IG% - Immature Granu locytes (promyelocytes, myelocytes and metamyelocytes) > 1% indicates that a LEFT SHIFT is Present. MCH (RBC) [Entitic mass] 27.8 pg 27.0-32.0 [facility] Nucleated RBC/100 WBC (Bld) [Ratio] 0 % 0-5 [facility] MCHC Auto (RBC) [Mass/Vol]Or dered By: Bobby Escobedo on 12-19-2022 MCHC (RBC) [Mass/Vol] 33.4 g/dL 32-36 [facility] No Panel InformationOrdered By: Bobby Escobedo on 12-19-2022 Estimated Creatinine Clearance Calc 38.85 ml/min [facility] Estimated GFR (MDRD) Amer 68 mL/min >60 [facility] Comment on above: GFR Calc Estimated GFR (MDRD) Non-Af Amer 57 mL/min >60 [facility] Comment on above: Non- GFR Calc Platelets bldOrdered By: Reyna Escobedo on 12-19-2022 Platelets (Bld) [#/Vol] 373 10*3/uL 150-450 [facility] Serum or plasma albumin papo urement (mass/volume)Ordered By: Bobby Escobedo on 12-19-2022 Albumin [Mass/Vol] 4.0 g/dL 3.2-5.0 [facility] Serum or plasma albumin/glob ulin mass ratioOrdered By: Bobby Escobedo on 12-19-2022 Albumin/Globulin [Mass ratio] 1.0 {ratio} 0.9-2.4 [facility] Serum or plasma calcium papo urement (mass/volume)Ordered By: Bobby Escobedo on 12-19-2022 Calcium [Mass/Vol] 9.6 mg/dL 8.5-10.1 [facility] Serum or plasma creatinine m easurement (mass/volume)Ordered By: Bobby Escobedo on 12-19-2022 Creatinine [Mass/Vol] 1.02 mg/dL 0.55-1.02 [facility] Comment on above: The validity of the calculated GFR & GFRAA in patients over 70 years has not been determined. Clinical correlation is essential. Serum or plasma urea nitroge n measurement (mass/volume)Ordered By: Bobby Escobedo on 12-19-2022 Urea nitrogen [Mass/Vol] 22 mg/dL 7-18 [facility] Thin prep Papanicolaou smear with manual screeningOrdered By: Bobby Escobedo on 12-19-2022 Thin prep Papanicolaou smear with manual screening 35 U/L 15-37 [facility] Thin prep Papanicolaou smear with manual screening 11 5-15 [facility] Bordetella pertussis IgM ant ibody assayOrdered By: Dr. Tran on 10-22-2022 B. pertussis IgM IA Qn (S) 1.0 index 0.0-0.9 [facility] Comment on above: Negative <1.0 Border line 1.0 - 1.1 Positive >1.1 COVID-19 virus antigen assay Ordered By: Dr. Tran on 10-22-2022 SARS-CoV-2 (COVID-19) Ag IA.rapid Ql (Resp) Not detected Not Detect [facility] Comment on above: Normal Reference Ran ge: Not DetectedMethod:(RT-PCR) real-time reverse transcriptase PCRLuminex STORMY Instrument*The Food and Drug Administration (FDA) has issued an Emergency Use Authorization (EAU) for the STORMY SARS-CoV-2 Assay for the rapid detection of the virus that causes COVID-19. This test has been validated, but the FDAs independent review of this validation is pending.*Negative results do not preclude infection and should not be used as the sole basis for treatment or patient management. Optimum specimen types and timing for peak viral levels during infections caused by SARS-CoV-2 have not been determined. Collection of multiple specimens from the same patient may be necessary to detect the virus. The possibility of a false negative result should be considered if the patient has clinical presentation or has had recent exposure. Laboratory - Microbiology an d Antimicrobial susceptibilityOrdered By: Dr. Tran on 10-22-2022 Respiratory pathogens DNA and RNA 12b panel STEPHANIE+probe (Unsp spec) [facility] No Panel InformationOrdered By: Dr. Tran on 10-22-2022 Bordetella pertussis IgG Antibody 2.88 index 0.00-0.94 [facility] Comment on above: Negative <0.95 Equiv ocal 0.95 - 1.04 Positive >1.04 Serum Bordetella pertussis I gA antibody assay (units/volume)Ordered By: Dr. Tran on 10-22-2022 B. pertussis IgA Qn (S) < 1.0 index 0.0-0.9 [facility] Comment on above: Negative <1.0 Border line 1.0 - 1.1 Positive >1.1Performed at: - [facility] [id number] Director: Noble Fong MD, Phone: [phone] CBC with auto diff ([id number])Or dered By: Flight Reservations Manager on 07-17-2022 Basophils (Bld) [#/Vol] 0.0 10*3/uL Normal 0.0-0.2 [facility]; [facility] Work Phone: Basophils/100 WBC (Bld) 0 % Normal C [facility]; [facility] Work Phone: Eosinophils (Bld) [#/Vol] 0.5 10*3/uL Abnormal 0.0-0.4 [facility]; [facility] Work Phone: Eosinophils/100 WBC (Bld) 7 % Normal [facility]; [facility] Work Phone: Erythrocyte distribution width (RBC) [Ratio] 13.1 % Normal 11.7-15.4 [facility]; [facility] Work Phone: Hematocrit (Bld) [Volume fraction] 40.7 % Normal 34.0-46.6 [facility]; [facility] Work Phone: Hemoglobin (Bld) [Mass/Vol] 13.4 g/dL Normal 11.1-15.9 [facility]; [facility] Work Phone: Immature granulocytes (Bld) [#/Vol] 0.0 10*3/uL Normal 0.0-0.1 [facility]; [facility] Work Phone: Immature granulocytes/100 WBC (Bld) 0 % Normal [facility]; [facility] Work Phone: Lymphocytes (Bld) [#/Vol] 2.0 10*3/uL Normal 0.7-3.1 [facility]; [facility] Work Phone: Lymphocytes/100 WBC (Bld) 27 % Normal [facility]; [facility] Work Phone: MCH (RBC) [Entitic mass] 28.5 pg Normal 26.6-33.0 [facility]; [facility] Work Phone: MCHC (RBC) [Mass/Vol] 32.9 g/dL Normal 31.5-35.7 [facility] prehensive Internal Medicine; [facility] Work Phone: MCV (RBC) [Entitic vol] 86 fL Normal 79-97 [facility]; [facility] Work Phone: Monocytes (Bld) [#/Vol] 0.6 10*3/uL Normal 0.1-0.9 [facility]; [facility] Work Phone: Monocytes/100 WBC (Bld) 8 % Normal [facility]; [facility] Work Phone: Neutrophils (Bld) [#/Vol] 4.3 10*3/uL Normal 1.4-7.0 [facility]; [facility] Work Phone: Neutrophils/100 WBC (Bld) 58 % Normal [facility]; [facility] Work Phone: Platelets (Bld) [#/Vol] 313 10*3/uL Normal 150-450 [facility]; [facility] Work Phone: RBC (Bld) [#/Vol] 4.71 10*6/uL Normal 3.77-5.28 [facility]; [facility] Work Phone: WBC (Bld) [#/Vol] 7.4 10*3/uL Normal 3.4-10.8 [facility]; [facility] Work Phone: LIPID PANEL ([id number])Ordered B y: Flight Reservations Manager on 07-17-2022 Cholesterol [Mass/Vol] 173 mg/dL Normal 100-199 [facility] Work Phone: Cholesterol in HDL [Mass/Vol] 52 mg/dL Normal [facility]; [facility] Work Phone: Triglyceride [Mass/Vol] 63 mg/dL Normal 0-149 [facility]; [facility] Work Phone: LIPID PANEL ([id number]) 12 mg/dL Normal 5-40 [facility] Work Phone: LIPID PANEL ([id number]) 109 mg/dL Abnormal 0-99 [facility]; [facility] Work Phone: LIPID PANEL ([id number]) 2.1 {ratio} Normal 0.0-3.[address] [facility]; [facility] Work Phone: METABOLIC PANEL, COMPREHENSI VE ([id number])Ordered By: Flight Reservations Manager on 07-17-2022 Albumin [Mass/Vol] 4.1 g/dL Normal 3.7-4.7 [facility] Internal [facility]; [facility] Work Phone: Albumin/Globulin [Mass ratio] 1.8 {ratio} Normal 1.2-2.2 [facility]; [facility] Work Phone: ALP [Catalytic activity/Vol] 100 U/L Normal 44-121 [facility]; [facility] Work Phone: ALT [Catalytic activity/Vol] 18 U/L Normal 0-32 [facility]; [facility] Work Phone: AST [Catalytic activity/Vol] 23 U/L Normal 0-40 [facility]; [facility] Work Phone: Bilirubin [Mass/Vol] 0.4 mg/dL Normal 0.0-1.2 [facility] Work Phone: Calcium [Mass/Vol] 9.4 mg/dL Normal 8.7-10.3 [facility]; [facility] Work Phone: Chloride [Moles/Vol] 104 mmol/L Normal 96-106 [facility] Internal [facility]; [facility] Work Phone: CO2 [Moles/Vol] 23 mmol/L Normal 20-29 [facility] Internal [facility]; [facility] Work Phone: Creatinine [Mass/Vol] 0.69 mg/dL Normal 0.57-1.00 [facility]; [facility] Work Phone: Globulin (S) [Mass/Vol] 2.3 g/dL Normal 1.5-4.5 [facility]; [facility] Work Phone: Glucose [Mass/Vol] 89 mg/dL Normal 70-99 [facility]; [facility] Work Phone: Potassium [Moles/Vol] 4.0 mmol/L Normal 3.5-5.2 [facility]; [facility] Work Phone: Protein [Mass/Vol] 6.4 g/dL Normal 6.0-8.5 Compre hensive [facility]; [facility] Work Phone: Sodium [Moles/Vol] 141 mmol/L Normal 134-144 Compre hens[facility]; [facility] Work Phone: Urea nitrogen [Mass/Vol] 11 mg/dL Normal 8-27 [facility]; [facility] Work Phone: Urea nitrogen/Creatinine [Mass ratio] 16 mg/mg Normal 12-28 [facility]; [facility] Work Phone: METABOLIC PANEL, COMPREHENSIVE ([id number]) 92 mL/min/1.73 Normal Com[facility]; [facility] Work Phone: MICROALBUMINOrdered By: [employer] em Electroencephalographic Technologist on 07-17-2022 Albumin DL <= 20 mg/L (U) [Mass/Vol] 4.0 ug/mL Normal [facility]; [facility] Work Phone: Albumin/Creatinine (U) [Mass ratio] 3 {mg/g_creat} Normal 0-29 [facility]; [facility] Work Phone: Creatinine (U) [Mass/Vol] 152.0 mg/dL Normal [facility]; [facility] Work Phone: TSH ([id number])Ordered By: [employer] m Electroencephalographic Technologist on 07-17-2022 TSH Qn 3.760 {uIU/mL} Normal 0.450-4.50 0 [facility]; [facility] Work Phone: URINALYSIS, W/ MICRO ([id number]) Ordered By: Flight Reservations Manager on 07-17-2022 Appearance (U) Clear Normal [facility]; [facility] Work Phone: Bilirubin Ql (U) Negative Normal Comprehe nsive [facility]; [facility] Work Phone: Color (U) Yellow Normal [facility]; [facility] Work Phone: Glucose Ql (U) Negative Normal Comprehens [facility]; [facility] Work Phone: Hemoglobin Ql (U) Negative Normal Compreh ensive [facility]; [facility] Work Phone: Ketones Ql (U) Negative Normal Comprehens [facility]; [facility] Work Phone: Leukocyte esterase Test strip Ql (U) Negative Normal [facility]; [facility] Work Phone: Microscopic observation LM Nom (Urine sed) MICRON Normal [facility]; [facility] Work Phone: Microscopic observation LM Nom (Urine sed) See below: Normal [facility]; [facility] Work Phone: Nitrite Ql (U) Negative Normal Comprehens [facility]; [facility] Work Phone: pH (U) 6.5 [pH] Normal 5.0-7.5 [facility]; [facility] Work Phone: Protein Ql (U) Negative Normal Comprehens [facility]; [facility] Work Phone: Specific gravity (U) [Rel density] 1.019 1 Normal 1.005-1.03 0 [facility]; [facility] Work Phone: Urobilinogen (U) [Mass/Vol] 1.0 mg/dL Normal 0.2-1.0 [facility]; [facility] Work Phone: 2018 Novel Coronavirus (COVI D-19), STEPHANIE ([id number])Ordered By: Flight Reservations Manager on 07-06-2022 2019 Novel Coronavirus (COVID-19), STEPHANIE ([id number]) Not detected Normal Comprehe nsive Internal Medicine; [facility] Work Phone: INHOUSE COVID 19 (ONLY) RAPI D ([id number])Ordered By: Ashley More on 07-06-2022 INHOUSE COVID 19 (ONLY) RAPID ([id number]) Negative Normal [facility]; [facility] Work Phone: Fecal Occult Blood , Office (Inhouse) ([id number])Ordered By: Millie Green on 03-12-2022 Hemoglobin.gastrointest inal Ql (Stl) Negative Normal [facility]; [facility] Work Phone: Opal 03-11-2022 CNPN Telephone (GENrevoPTS) JAKY SPENCER ([id number]) 1950 F Date Time Provider Department 03/11/22 MADI BORGES GENSWS During your visit today, we recorded the following information about you: Tamiko Isidro 03/11/2022 11:20 AM Signed Pt calling in stating that she is having black stool past two days and was told by Dr. Bunn office that it could be a possible GI bleed. She is wondering if Dr. Borges would be willing to see her for this? Pt was last seen by Dr. Borges at [facility] in 2019 for colonoscopy. Please advise Tamiko Johnson 03/11/2022 4:43 PM Signed Pt called again. (did not indicate she had called previously) She is scheduled with knowledge that she may need to get a referral from her primary. She stated she they are willing to send if necessary. Also stated she had seen Dr. Borges in 2019 at [facility]. Allergies As of Date: 03/11/2022 (No Known Allergies) Date Reviewed: 12/10/2015 Reviewed by: Arti Ziegler (Rn)(Hist) KARTHIK Limon - Fully Assessed Reason for Visit: Patient Question [9857] Prescriptions as of 03/30/2022 - acetaminophen-codeine (TYLENOL-CODEINE #3) 300-30 mg per tablet Take 1-2 tablets by mouth every 4 hours as needed. - ondansetron (ZOFRAN) 8 mg tablet Take 1 tablet by mouth every 8 hours as needed. - promethazine (PHENERGAN) 12.5 mg suppository 12.5 mg by RECTAL route every 6 hours as needed for Nausea/Vomiting. - Ranitidine HCl 300 mg capsule Take 300 mg by mouth. - diltiazem CD (CARDIZEM CD, CARTIA XT) 180 mg 24 hr capsule - alpha tocopheryl acetate (VITAMIN E) 400 unit capsule Take 400 Units by mouth once daily. - Bartley-3 Fatty Acids-Vitamin E 1,000 mg cap Take 1 capsule by mouth. - Ascorbic Acid 1,000 mg tablet Take 1,000 mg by mouth once daily. - CALCIUM CARBONATE/VITAMIN D3 (CALCIUM 600 + D ORAL) Take by mouth. - GLUC HCL/CSANA/GLY-AM-GLY,MX /C ([id number]-JC GLYCN-C ORAL) Take by mouth. - VITAMIN B COMPLEX (B COMPLEX ORAL) Take by mouth. - OTC PRODUCT Tumeric Problem List As Of Date 03/11/2022 Noted Resolved Adult BMI 27.0-27.9 kg/sq m [Z68.27] 11/21/2015 GERD (gastroesophageal reflux disease) [K21.9] 11/21/2015 HTN (hypertension) [I10] 11/21/2015 EE (eosinophilic esophagitis) [K20.0] 11/21/2015 Melanoma (HCC) [C43.9] 11/21/2015 Nausea and vomiting [R11.2] 11/21/2015 Chronic cholecystitis with calculus [K80.10] 12/10/2015 Encounter Status:Closed by TAMIKO FELIX on 03/30/22 Normal [facility] CALCIFIDIOL ([id number]) VIT D 25 Ordered By: Flight Reservations Manager on 01-02-2022 25-hydroxyvitamin D [Mass/Vol] 147.0 ng/mL Abnormal 30.0-100.0 [facility]; [facility] Work Phone: CBC W/AUTO DIFF WBC ([id number])O rdered By: Flight Reservations Manager on 01-02-2022 Basophils (Bld) [#/Vol] 0.0 10*3/uL Normal 0.0-0.2 [facility]; [facility] Work Phone: Basophils/100 WBC (Bld) 1 % Normal [facility]; [facility] Work Phone: Eosinophils (Bld) [#/Vol] 0.4 10*3/uL Normal 0.0-0.4 [facility]; [facility] Work Phone: Eosinophils/100 WBC (Bld) 6 % Normal [facility]; [facility] Work Phone: Erythrocyte distribution width (RBC) [Ratio] 13.0 % Normal 11.7-15.4 [facility]; [facility] Work Phone: Hematocrit (Bld) [Volume fraction] 40.3 % Normal 34.0-46.6 [facility]; [facility] Work Phone: Hemoglobin (Bld) [Mass/Vol] 13.5 g/dL Normal 11.1-15.9 [facility]; [facility] Work Phone: Immature granulocytes (Bld) [#/Vol] 0.0 10*3/uL Normal 0.0-0.1 [facility]; [facility] Work Phone: Immature granulocytes/100 WBC (Bld) 0 % Normal [facility]; [facility] Work Phone: Lymphocytes (Bld) [#/Vol] 1.9 10*3/uL Normal 0.7-3.1 [facility]; [facility] Work Phone: Lymphocytes/100 WBC (Bld) 29 % Normal [facility]; [facility] Work Phone: MCH (RBC) [Entitic mass] 28.7 pg Normal 26.6-33.0 [facility]; [facility] Work Phone: MCHC (RBC) [Mass/Vol] 33.5 g/dL Normal 31.5-35.7 [facility] prehensive Internal Medicine; [facility] Work Phone: MCV (RBC) [Entitic vol] 86 fL Normal 79-97 [facility]; [facility] Work Phone: Monocytes (Bld) [#/Vol] 0.5 10*3/uL Normal 0.1-0.9 [facility]; [facility] Work Phone: Monocytes/100 WBC (Bld) 8 % Normal [facility]; [facility] Work Phone: Neutrophils (Bld) [#/Vol] 3.7 10*3/uL Normal 1.4-7.0 [facility]; [facility] Work Phone: Neutrophils/100 WBC (Bld) 56 % Normal [facility]; [facility] Work Phone: Platelets (Bld) [#/Vol] 308 10*3/uL Normal 150-450 [facility]; [facility] Work Phone: RBC (Bld) [#/Vol] 4.71 10*6/uL Normal 3.77-5.28 [facility]; [facility] Work Phone: WBC (Bld) [#/Vol] 6.6 10*3/uL Normal 3.4-10.8 [facility]; [facility] Work Phone: LIPID PANEL ([id number])Ordered B y: Flight Reservations Manager on 01-02-2022 Cholesterol [Mass/Vol] 176 mg/dL Normal 100-199 [facility]; [facility] Work Phone: Cholesterol in HDL [Mass/Vol] 57 mg/dL Normal [facility]; [facility] Work Phone: Triglyceride [Mass/Vol] 78 mg/dL Normal 0-[address] [facility]; [facility] Work Phone: LIPID PANEL ([id number]) 15 mg/dL Normal 5-40 [facility]; [facility] Work Phone: LIPID PANEL ([id number]) 104 mg/dL Abnormal 0-99 [facility]; [facility] Work Phone: LIPID PANEL ([id number]) 1.8 {ratio} Normal 0.0-3.2 [facility]; [facility] Work Phone: METABOLIC PANEL, COMPREHENSI VE ([id number])Ordered By: Flight Reservations Manager on 01-02-2022 Albumin [Mass/Vol] 4.2 g/dL Normal 3.7-4.7 [facility]; [facility] Work Phone: Albumin/Globulin [Mass ratio] 2.1 {ratio} Normal 1.2-2.2 [facility]; [facility] Work Phone: ALP [Catalytic activity/Vol] 99 U/L Normal 44-121 [facility]; [facility] Work Phone: ALT [Catalytic activity/Vol] 14 U/L Normal 0-32 [facility]; [facility] Work Phone: AST [Catalytic activity/Vol] 17 U/L Normal 0-40 [facility]; [facility] Work Phone: Bilirubin [Mass/Vol] 0.4 mg/dL Normal 0.0-1.2 [facility]; [facility] Work Phone: Calcium [Mass/Vol] 9.4 mg/dL Normal 8.7-10.3 [facility] Internal Medicine; [facility] Medicine Work Phone: Chloride [Moles/Vol] 103 mmol/L Normal 96-106 [facility] rehensive Internal Medicine; [facility] Medicine Work Phone: CO2 [Moles/Vol] 26 mmol/L Normal 20-29 [facility] Internal Medicine; [facility] Internal Medicine Work Phone: Creatinine [Mass/Vol] 0.69 mg/dL Normal 0.57-1.00 [facility] Internal Medicine; [facility] Medicine Work Phone: Globulin (S) [Mass/Vol] 2.0 g/dL Normal 1.5-4.5 [facility]; [facility] Work Phone: Glucose [Mass/Vol] 88 mg/dL Normal 65-99 [facility] Internal Medicine; [facility] Medicine Work Phone: Potassium [Moles/Vol] 3.9 mmol/L Normal 3.5-5.2 [facility] Internal [facility]; [facility] Medicine Work Phone: Protein [Mass/Vol] 6.2 g/dL Normal 6.0-8.5 [facility] Internal [facility]; [facility] Medicine Work Phone: Sodium [Moles/Vol] 142 mmol/L Normal 134-144 Compre hens[facility]; [facility] Work Phone: Urea nitrogen [Mass/Vol] 10 mg/dL Normal 8-27 [facility]; [facility] Work Phone: Urea nitrogen/Creatinine [Mass ratio] 14 mg/mg Normal 12-28 [facility]; [facility] Work Phone: METABOLIC PANEL, COMPREHENSIVE ([id number]) 92 mL/min/1.73 Normal [facility]; [facility] Work Phone: MICROALBUMINOrdered By: [employer] em Electroencephalographic Technologist on 01-02-2022 Albumin DL <= 20 mg/L (U) [Mass/Vol] 9.8 ug/mL Normal [facility]; [facility] Work Phone: Albumin/Creatinine (U) [Mass ratio] 4 {mg/g_creat} Normal 0-29 [facility]; [facility] Work Phone: Creatinine (U) [Mass/Vol] 227.5 mg/dL Normal [facility]; [facility] Work Phone: TSH ([id number])Ordered By: Skuid Electroencephalographic Technologist on 01-02-2022 TSH Qn 4.460 {uIU/mL} Normal 0.450-4.50 0 [facility]; [facility] Work Phone: URINALYSIS, W/ MICRO ([id number]) Ordered By: Flight Reservations Manager on 01-02-2022 Appearance (U) Clear Normal [facility]; [facility] Work Phone: Bilirubin Ql (U) Negative Normal Comprehe nsive [facility]; [facility] Work Phone: Color (U) Yellow Normal [facility]; [facility] Work Phone: Glucose Ql (U) Negative Normal [facility]; [facility] Work Phone: Hemoglobin Ql (U) Negative Normal Compreh ensive [facility]; [facility] Work Phone: Ketones Ql (U) Trace Abnormal [facility]; [facility] Work Phone: Leukocyte esterase Test strip Ql (U) Trace Abnormal [facility]; [facility] Work Phone: Microscopic observation LM Nom (Urine sed) See below: Normal [facility]; [facility] Work Phone: Nitrite Ql (U) Negative Normal [facility]; [facility] Work Phone: pH (U) 7.0 [pH] Normal 5.0-7.5 [facility]; [facility] Work Phone: Protein Ql (U) Trace Normal [facility]; [facility] Work Phone: Specific gravity (U) [Rel density] 1.021 1 Normal 1.005-1.03 0 [facility]; [facility] Work Phone: Urobilinogen (U) [Mass/Vol] 1.0 mg/dL Normal 0.2-1.0 [facility]; [facility] Work Phone: CALCIFIDIOL ([id number]) VIT D 25 Ordered By: Flight Reservations Manager on 12-24-2020 25-hydroxyvitamin D [Mass/Vol] 87.1 ng/mL Normal 30.0-100.0 [facility]; [facility] Work Phone: CBC W/AUTO DIFF WBC ([id number])O rdered By: Flight Reservations Manager on 12-24-2020 Basophils (Bld) [#/Vol] 0.1 10*3/uL Normal 0.0-0.2 [facility]; [facility] Work Phone: Basophils/100 WBC (Bld) 1 % Normal [facility]; [facility] Work Phone: Eosinophils (Bld) [#/Vol] 0.4 10*3/uL Normal 0.0-0.4 [facility]; [facility] Work Phone: Eosinophils/100 WBC (Bld) 6 % Normal [facility]; [facility] Work Phone: Erythrocyte distribution width (RBC) [Ratio] 13.1 % Normal 11.7-15.4 [facility]; [facility] Work Phone: Hematocrit (Bld) [Volume fraction] 39.8 % Normal 34.0-46.6 [facility]; [facility] Work Phone: Hemoglobin (Bld) [Mass/Vol] 12.9 g/dL Normal 11.1-15.9 [facility]; [facility] Work Phone: Immature granulocytes (Bld) [#/Vol] 0.0 10*3/uL Normal 0.0-0.1 [facility]; [facility] Work Phone: Immature granulocytes/100 WBC (Bld) 0 % Normal [facility]; [facility] Work Phone: Lymphocytes (Bld) [#/Vol] 2.0 10*3/uL Normal 0.7-3.1 [facility]; [facility] Work Phone: Lymphocytes/100 WBC (Bld) 30 % Normal [facility]; [facility] Work Phone: MCH (RBC) [Entitic mass] 27.5 pg Normal 26.6-33.0 [facility]; [facility] Work Phone: MCHC (RBC) [Mass/Vol] 32.4 g/dL Normal 31.5-35.7 Com prehensive [facility]; [facility] Work Phone: MCV (RBC) [Entitic vol] 85 fL Normal 79-97 [facility]; [facility] Work Phone: Monocytes (Bld) [#/Vol] 0.5 10*3/uL Normal 0.1-0.9 [facility]; [facility] Work Phone: Monocytes/100 WBC (Bld) 7 % Normal [facility]; [facility] Work Phone: Neutrophils (Bld) [#/Vol] 3.7 10*3/uL Normal 1.4-7.0 [facility]; [facility] Work Phone: Neutrophils/100 WBC (Bld) 56 % Normal [facility]; [facility] Work Phone: Platelets (Bld) [#/Vol] 320 10*3/uL Normal 150-450 [facility] Internal [facility]; [facility] Work Phone: RBC (Bld) [#/Vol] 4.69 10*6/uL Normal 3.77-5.28 [facility] Work Phone: WBC (Bld) [#/Vol] 6.6 10*3/uL Normal 3.4-10.8 [facility] Internal Medicine; [facility] Medicine Work Phone: HEPATITIS C ANTIBODY ([id number]) Ordered By: Flight Reservations Manager on 12-24-2020 HCV Ab Signal/Cutoff IA [Rel units/Vol] 0.1 {s/co_ratio} Normal 0.0-0.9 [facility] Work Phone: METABOLIC PANEL, COMPREHENSI VE ([id number])Ordered By: Flight Reservations Manager on 12-24-2020 Albumin [Mass/Vol] 4.2 g/dL Normal 3.7-4.7 [facility] Work Phone: Albumin/Globulin [Mass ratio] 2.0 {ratio} Normal 1.2-2.2 [facility] Internal [facility] Internal Medicine Work Phone: ALP [Catalytic activity/Vol] 95 U/L Normal 39-117 [facility] Work Phone: ALT [Catalytic activity/Vol] 20 U/L Normal 0-32 [facility] Work Phone: AST [Catalytic activity/Vol] 18 U/L Normal 0-40 [facility] Work Phone: Bilirubin [Mass/Vol] 0.2 mg/dL Normal 0.0-1.2 [facility] Internal [facility] Internal Medicine Work Phone: Calcium [Mass/Vol] 9.4 mg/dL Normal 8.7-10.3 [facility] Work Phone: Chloride [Moles/Vol] 108 mmol/L Abnormal 96-106 [facility]; [facility] Work Phone: CO2 [Moles/Vol] 23 mmol/L Normal 20-29 [facility]; [facility] Work Phone: Creatinine [Mass/Vol] 0.66 mg/dL Normal 0.57-1.00 [facility]; [facility] Work Phone: GFR/1.73 sq M.predicted among blacks CKD-EPI (S/P/Bld) [Vol rate/Area] 103 mL/min/1.73 Normal [facility]; [facility] Work Phone: GFR/1.73 sq M.predicted among non-blacks CKD-EPI (S/P/Bld) [Vol rate/Area] 89 mL/min/1.73 Normal [facility]; [facility] Work Phone: Globulin (S) [Mass/Vol] 2.1 g/dL Normal 1.5-4.5 [facility]; [facility] Work Phone: Glucose [Mass/Vol] 92 mg/dL Normal 65-99 [facility]; [facility] Work Phone: Potassium [Moles/Vol] 4.4 mmol/L Normal 3.5-5.2 [facility]; [facility] Work Phone: Protein [Mass/Vol] 6.3 g/dL Normal 6.0-8.5 [facility]; [facility] Work Phone: Sodium [Moles/Vol] 141 mmol/L Normal 134-144 [facility]; [facility] Work Phone: Urea nitrogen [Mass/Vol] 12 mg/dL Normal 8-27 [facility]; [facility] Work Phone: Urea nitrogen/Creatinine [Mass ratio] 18 mg/mg Normal 12-28 [facility]; [facility] Work Phone: MICROALBUMINOrdered By: Syst em Electroencephalographic Technologist on 12-24-2020 Albumin DL <= 20 mg/L (U) [Mass/Vol] 6.1 ug/mL Normal [facility]; [facility] Work Phone: Albumin/Creatinine (U) [Mass ratio] 5 {mg/g_creat} Normal 0-29 [facility]; [facility] Work Phone: Creatinine (U) [Mass/Vol] 121.1 mg/dL Normal [facility]; [facility] Work Phone: NMR Profile ([id number])Ordered B y: Flight Reservations Manager on 12-24-2020 Lipoprotein.alpha [Moles/Vol] 35.3 umol/L Normal [facility]; [facility] Work Phone: Lipoprotein.beta.subpar ticle [Entitic length] 21.1 nm Normal Comprehen [facility]; [facility] Work Phone: Lipoprotein.beta.subpar ticle [Moles/Vol] 1436 nmol/L Abnormal [facility]; [facility] Work Phone: Lipoprotein.beta.subpar ticle.small [Moles/Vol] 499 nmol/L Normal Comprehe [facility]; [facility] Work Phone: NMR Profile ([id number]) 125 mg/dL [facility]normal 0-99 [facility] Work Phone: NMR Profile (72513) 57 mg/dL [facility] Work Phone: NMR Profile ([id number]) 100 mg/dL Normal 0-149 [facility] Work Phone: NMR Profile ([id number]) 200 mg/dL Abnormal 100-199 [facility] Work Phone: TSH ([id number])Ordered By: Jaimie m Electroencephalographic Technologist on 12-24-2020 TSH Qn 2.330 {uIU/mL} Normal 0.450-4.50 0 [facility]; [facility] Work Phone: URINALYSIS, W/ MICRO ([id number]) Ordered By: Flight Reservations Manager on 12-24-2020 Appearance (U) Clear Normal [facility]; [facility] Work Phone: Bilirubin Ql (U) Negative Normal Comprehe nsive [facility]; [facility] Work Phone: Color (U) Yellow Normal [facility]; [facility] Work Phone: Glucose Ql (U) Negative Normal [facility]; [facility] Work Phone: Hemoglobin Ql (U) Negative Normal Compreh ensive [facility]; [facility] Work Phone: Ketones Ql (U) Negative Normal [facility]; [facility] Work Phone: Leukocyte esterase Test strip Ql (U) Trace Abnormal [facility]; [facility] Work Phone: Microscopic observation LM Nom (Urine sed) See below: Normal [facility]; [facility] Work Phone: Nitrite Ql (U) Negative Normal [facility]; [facility] Work Phone: pH (U) 6.5 [pH] Normal 5.0-7.5 [facility]; [facility] Work Phone: Protein Ql (U) Negative Normal [facility]; [facility] Work Phone: Specific gravity (U) [Rel density] 1.021 1 Normal 1.005-1.03 0 [facility]; [facility] Work Phone: Urobilinogen (U) [Mass/Vol] 0.2 mg/dL Normal 0.2-1.0 [facility]; [facility] Work Phone: T3, FREE (TRIDOTHYRONINE) ([id number])Ordered By: Flight Reservations Manager on 09-03-2020 Free T3 [Mass/Vol] 3.2 pg/mL Normal 2.0-4.4 Compre hensive [facility]; [facility] Internal Medicine Work Phone: Comment on above: PATIENT NOT FASTINGP ERFORMED BY: LabCoBacharach Institute for RehabilitationPwutpy3410 [facility] [id number] T4, FREE (THYROXINE) ([id number]) Ordered By: Flight Reservations Manager on 09-03-2020 Free T4 [Mass/Vol] 1.14 ng/dL Normal 0.82-1.77 [facility]; [facility] Work Phone: Comment on above: PATIENT NOT FASTINGP ERFORMED BY: SCI SolutionBacharach Institute for RehabilitationMsluvu8044 [facility] [id number] TSH ([id number])Ordered By: Jaimie m Electroencephalographic Technologist on 09-03-2020 TSH Qn 4.470 {uIU/mL} Normal 0.450-4.50 0 [facility]; [facility] Work Phone: Comment on above: PATIENT NOT FASTINGP ERFORMED BY: SCI SolutionBacharach Institute for RehabilitationSvjtgr5354 [facility] [id number] CALCIFEDIOL (40172)Ordered B y: Flight Reservations Manager on 07-15-2020 25-Hydroxyvitamin D2+25-Hydroxyvitamin D3 [Mass/Vol] 82.8 ng/mL Normal 30.0-100.0 [facility] Work Phone: Comment on above: Vitamin D deficiency has been defined by the [place] of[place] and an Endocrine Society practice guideline as alevel of serum 25-OH vitamin D less than 20 ng/mL (1,2).The Endocrine Society went on to further define vitamin Dinsufficiency as a level between 21 and 29 ng/mL (2).1. IOM ([place] of [employer]). 2010. Dietary reference intakes for calcium and D. [place]: The National Academies Press.2. Jadon MF, Abimael CHAWLA, Susan BERNAL, et al. Evaluation, treatment, and prevention of vitamin D deficiency: an Endocrine Society clinical practice guideline. JCEM. 2010; 96(7):1911-30. Test(s) 324581-UPF-C ; 638689-QWB-T; 137308-Bzgjckikbjdjy; 376829-Dkfnudgcxzi, Total; 652380-MMX-K (Total); 584390-Jnsvk LDL-P; 779063-AAM Size; 376964-JA-PB Scorewas developed and its performance characteristics determinedby [employer]. It has not been cleared or approved by the Foodand Drug Administration.PATIENT WAS FASTINGPERFORMED BY: [employer] [address] [id number] BY: [employer]6370 [facility] [id number] CBC W/AUTO DIFF WBC (75280)O rdered By: Flight Reservations Manager on 07-15-2020 Basophils (Bld) [#/Vol] 0.0 {x10E3/uL} Normal 0.0-0.2 [facility] Work Phone: Comment on above: Test(s) 551131-NYT-P ; 628476-BRD-Y; 596039-Fmafendmkkazi; 510014-Lyvrwkghomr, Total; 227152-AWH-X (Total); 773288-Mnqgm LDL-P; 012470-IEE Size; 957766-TK-JG Scorewas developed and its performance characteristics determinedby [employer]. It has not been cleared or approved by the Foodand Drug Administration.PATIENT WAS FASTINGPERFORMED BY: [employer] [address] [id number] BY: [employer] Ckciso4986 [facility] [id number] Basophils (Bld) [#/Vol] 0.0 10*3/uL Normal 0.0-0.2 [facility]; [facility] Work Phone: Comment on above: Test(s) 651207-CZH-R ; 585158-YOP-C; 888823-Uwqtneluscjeb; 356049-Eegeevongbr, Total; 076931-DGW-F (Total); 130548-Cvkul LDL-P; 262356-KUY Size; 762436-YJ-FP Scorewas developed and its performance characteristics determinedby [employer]. It has not been cleared or approved by the Foodand Drug Administration.PATIENT WAS FASTINGPERFORMED BY: [employer] [address] [id number] BY: [employer] Gplbjs1666 [facility] [id number] Basophils/100 WBC (Bld) 0 % Normal C [facility] Internal Medicine Work Phone: Comment on above: Test(s) 252448-QYD-D ; 501701-CXT-T; 214150-Yjzkzsovjwcis; 523424-Qmzgdrzrxjy, Total; 094064-JWQ-M (Total); 585489-Upktr LDL-P; 639426-INK Size; 791826-NL-JV Scorewas developed and its performance characteristics determinedby [employer]. It has not been cleared or approved by the Foodand Drug Administration.PATIENT WAS FASTINGPERFORMED BY: [employer] [address] [id number] BY: [employer]70 [facility] [id number] Eosinophils (Bld) [#/Vol] 0.4 {x10E3/uL} Normal 0.0-0.4 [facility] Work Phone: Comment on above: Test(s) 251286-DOC-S ; 443609-ONQ-V; 340676-Srgbiuxypgntk; 402405-Ziapjqhenpo, Total; 703468-BPL-T (Total); 758977-Vrfmq LDL-P; 563710-TWN Size; 273474-XN-JR Scorewas developed and its performance characteristics determinedby [employer]. It has not been cleared or approved by the Foodand Drug Administration.PATIENT WAS FASTINGPERFORMED BY: [employer] [address] [id number] BY: Munch a BunchBacharach Institute for RehabilitationVvhyjh8892 [facility] [id number] Eosinophils (Bld) [#/Vol] 0.4 10*3/uL Normal 0.0-0.4 [facility]; [facility] Work Phone: Comment on above: Test(s) 643201-UMC-T ; 983220-YUP-X; 239828-Nsnrsdeztjqbq; 000416-Tiqkxvhzemj, Total; 682959-VQI-X (Total); 250242-Qshka LDL-P; 564187-ERQ Size; 480363-KE-EM Scorewas developed and its performance characteristics determinedby [employer]. It has not been cleared or approved by the Foodand Drug Administration.PATIENT WAS FASTINGPERFORMED BY: [employer] [address] [id number] BY: SCI SolutionBacharach Institute for RehabilitationOiswpe9804 [facility] [id number] Eosinophils/100 WBC (Bld) 5 % Normal [facility] Work Phone: Comment on above: Test(s) 340119-VBR-M ; 911413-UUX-W; 126083-Rrxtodlhezesp; 890172-Qythnxzttjr, Total; 010893-RPY-D (Total); 801603-Frtoy LDL-P; 434709-ZLA Size; 230704-FW-US Scorewas developed and its performance characteristics determinedby [employer]. It has not been cleared or approved by the Foodand Drug Administration.PATIENT WAS FASTINGPERFORMED BY: [employer] [address] [id number] BY: [employer]70 [facility] [id number] Erythrocyte distribution width (RBC) [Ratio] 13.0 % Normal 11.7-15.4 [facility] Work Phone: Comment on above: Test(s) 025018-FGO-R ; 934342-KFC-P; 612699-Ywbdaoozidzcy; 283019-Crcbnewzbvo, Total; 399313-QZI-Z (Total); 289193-Tdzkf LDL-P; 060282-HIQ Size; 225120-SX-QP Scorewas developed and its performance characteristics determinedby [employer]. It has not been cleared or approved by the Foodand Drug Administration.PATIENT WAS FASTINGPERFORMED BY: [employer] [address] [id number] BY: Branch Sgzxpt4321 [facility] [id number] Hematocrit (Bld) [Volume fraction] 40.6 % Normal 34.0-46.6 [facility] Work Phone: Comment on above: Test(s) 106834-URG-G ; 804318-OZF-K; 661025-Nlvzxiaxkapnv; 304856-Zeymqirhjud, Total; 884264-ADW-A (Total); 986999-Uliix LDL-P; 500329-CLD Size; 211157-YW-KZ Scorewas developed and its performance characteristics determinedby [employer]. It has not been cleared or approved by the Foodand Drug Administration.PATIENT WAS FASTINGPERFORMED BY: [employer] [address] [id number] BY: [employer]70 [facility] [id number] Hemoglobin (Bld) [Mass/Vol] 13.5 g/dL Normal 11.1-15.9 [facility] Work Phone: Comment on above: Test(s) 393082-POH-K ; 351312-TAD-V; 985721-Ezweajefwjbwb; 676558-Sniuppxfkdr, Total; 912691-KFA-D (Total); 837666-Usqzh LDL-P; 613695-MVQ Size; 788538-EF-YS Scorewas developed and its performance characteristics determinedby [employer]. It has not been cleared or approved by the Foodand Drug Administration.PATIENT WAS FASTINGPERFORMED BY: [employer] [address] [id number] BY: Branch Dbguec5402 [facility] [id number] Immature granulocytes (Bld) [#/Vol] 0.0 {x10E3/uL} Normal 0.0-0.1 [facility] Work Phone: Comment on above: Test(s) 459080-ZYL-Z ; 933930-VIB-K; 861476-Coltfbraoapyd; 733216-Becgnhxketz, Total; 944090-QDJ-P (Total); 557776-Aldvq LDL-P; 471244-HQL Size; 410078-UP-XL Scorewas developed and its performance characteristics determinedby [employer]. It has not been cleared or approved by the Foodand Drug Administration.PATIENT WAS FASTINGPERFORMED BY: [employer] [address] [id number] BY: Branch Sgkhzk0558 [facility] [id number] Immature granulocytes (Bld) [#/Vol] 0.0 10*3/uL Normal 0.0-0.1 [facility]; [facility] Work Phone: Comment on above: Test(s) 451611-PJX-F ; 179372-MFE-D; 613873-Udfccymcdrjyt; 299022-Xsrjektzsrt, Total; 085853-KHH-Q (Total); 343315-Oqjxi LDL-P; 116616-OIJ Size; 313641-TA-YS Scorewas developed and its performance characteristics determinedby [employer]. It has not been cleared or approved by the Foodand Drug Administration.PATIENT WAS FASTINGPERFORMED BY: [employer] [address] [id number] BY: Moodyo6370 [facility] [id number] Immature granulocytes/100 WBC (Bld) 0 % Normal [facility] Work Phone: Comment on above: Test(s) 001349-ZSQ-P ; 683589-VEO-D; 806879-Noksbnygkaets; 732715-Fikzabujsle, Total; 406363-JGS-Q (Total); 837865-Mwhul LDL-P; 747604-IFN Size; 628829-MD-HK Scorewas developed and its performance characteristics determinedby [employer]. It has not been cleared or approved by the Foodand Drug Administration.PATIENT WAS FASTINGPERFORMED BY: [employer] [address] [id number] BY: Branch Bhamrx3824 [facility] [id number] Lymphocytes (Bld) [#/Vol] 2.3 {x10E3/uL} Normal 0.7-3.1 [facility] Work Phone: Comment on above: Test(s) 409870-VJJ-J ; 842209-NMH-L; 897082-Sqkoiwoolfxdy; 748006-Tynbnraooyi, Total; 530014-VQE-W (Total); 353283-Xhlqu LDL-P; 822434-UKI Size; 837419-JU-GD Scorewas developed and its performance characteristics determinedby [employer]. It has not been cleared or approved by the Foodand Drug Administration.PATIENT WAS FASTINGPERFORMED BY: [employer] [address] [id number] BY: [employer]70 [facility] LeapfunderUNC Hospitals [facility] [id number] Lymphocytes (Bld) [#/Vol] 2.3 10*3/uL Normal 0.7-3.1 [facility]; [facility] Work Phone: Comment on above: Test(s) 934331-WYK-I ; 275418-AEQ-A; 778770-Bqikttimegbvi; 354932-Gkxbpevxlkp, Total; 316461-OPL-Y (Total); 374805-Syhtq LDL-P; 643843-VLK Size; 972852-ME-VF Scorewas developed and its performance characteristics determinedby [employer]. It has not been cleared or approved by the Foodand Drug Administration.PATIENT WAS FASTINGPERFORMED BY: [employer] [address] [id number] BY: [employer]70 Smart[facility] TechnologiesAtrium Health [facility] [id number] Lymphocytes/100 WBC (Bld) 33 % Normal [facility] Work Phone: Comment on above: Test(s) 416303-RKI-Z ; 744706-ZIX-N; 910183-Kjcsjfgktwhyn; 125714-Dkxjyyhbwvh, Total; 644626-KRC-V (Total); 709561-Xyihb LDL-P; 326098-WFK Size; 106074-HA-HZ Scorewas developed and its performance characteristics determinedby [employer]. It has not been cleared or approved by the Foodand Drug Administration.PATIENT WAS FASTINGPERFORMED BY: [employer] [address] [id number] BY: Moodyo6370 [facility] [id number] MCH (RBC) [Entitic mass] 28.2 pg Normal 26.6-33.0 [facility] Internal Medicine Work Phone: Comment on above: Test(s) 827468-AKY-Y ; 210372-IXN-Q; 066258-Gejwblpmjrmek; 791565-Ewugfddtnwd, Total; 157840-WKT-T (Total); 610181-Indfs LDL-P; 890290-MPD Size; 435354-VD-FL Scorewas developed and its performance characteristics determinedby [employer]. It has not been cleared or approved by the Foodand Drug Administration.PATIENT WAS FASTINGPERFORMED BY: [employer] [address] [id number] BY: [employer]70 [facility] [id number] MCHC (RBC) [Mass/Vol] 33.3 g/dL Normal 31.5-35.7 [facility] Internal Medicine Work Phone: Comment on above: Test(s) 076608-UZP-E ; 152112-CTJ-O; 234730-Tdrzsnmuazbcq; 859638-Tpzychulbno, Total; 262555-GCA-N (Total); 460961-Odpqq LDL-P; 748955-KQZ Size; 759203-FG-LL Scorewas developed and its performance characteristics determinedby [employer]. It has not been cleared or approved by the Foodand Drug Administration.PATIENT WAS FASTINGPERFORMED BY: [employer] [address] [id number] BY: Moodyo6370 [facility] [id number] MCV (RBC) [Entitic vol] 85 fL Normal 79-97 [facility] Work Phone: Comment on above: Test(s) 390267-BMR-L ; 991866-FPF-X; 166416-Zpsbimlegbxht; 662614-Dvfuclufdjz, Total; 507477-KAA-R (Total); 700486-Khbye LDL-P; 700547-EGP Size; 547435-UL-IS Scorewas developed and its performance characteristics determinedby [employer]. It has not been cleared or approved by the Foodand Drug Administration.PATIENT WAS FASTINGPERFORMED BY: [employer] [id number] BY: SCI SolutionBacharach Institute for RehabilitationTzbfva7823 [facility] [id number] Monocytes (Bld) [#/Vol] 0.7 {x10E3/uL} Normal 0.1-0.9 [facility] Work Phone: Comment on above: Test(s) 699383-EPQ-N ; 767714-LWP-Q; 530920-Jbfwsneirtxfv; 473517-Tptnfxnrguf, Total; 392329-OAW-P (Total); 308151-Tszqa LDL-P; 814046-IMZ Size; 317593-BM-UL Scorewas developed and its performance characteristics determinedby [employer]. It has not been cleared or approved by the Foodand Drug Administration.PATIENT WAS FASTINGPERFORMED BY: [employer] [address] [id number] BY: SCI SolutionBacharach Institute for RehabilitationIblawt6860 [facility] [id number] Monocytes (Bld) [#/Vol] 0.7 10*3/uL Normal 0.1-0.9 [facility]; [facility] Work Phone: Comment on above: Test(s) 870298-JSV-X ; 313705-YCE-K; 788972-Zpsugrbjgnpid; 416117-Fpffcwgusln, Total; 320829-ZOS-X (Total); 404584-Evhza LDL-P; 591583-GPF Size; 956676-TE-BF Scorewas developed and its performance characteristics determinedby [employer]. It has not been cleared or approved by the Foodand Drug Administration.PATIENT WAS FASTINGPERFORMED BY: [employer] [id number] BY: SCI SolutionBacharach Institute for RehabilitationTzsfea2100 [facility] [id number] Monocytes/100 WBC (Bld) 9 % Normal C omprehensive Internal Medicine Work Phone: Comment on above: Test(s) 723410-PZY-R ; 709051-DLD-K; 974363-Nzsfyohrexdjb; 046266-Mvdfwdfcvuk, Total; 963385-EOK-V (Total); 678999-Xxjzk LDL-P; 344607-LXK Size; 814821-VR-IJ Scorewas developed and its performance characteristics determinedby [employer]. It has not been cleared or approved by the Foodand Drug Administration.PATIENT WAS FASTINGPERFORMED BY: [employer] [id number] BY: SCI SolutionJonathan [place] 9046970 [facility] [id number] Neutrophils (Bld) [#/Vol] 3.7 {x10E3/uL} Normal 1.4-7.0 [facility] Work Phone: Comment on above: Test(s) 806502-WZO-T ; 249007-GFO-W; 863382-Mxzsrswgpobjl; 524860-Qqwtjmtudis, Total; 982493-XQH-P (Total); 639942-Wvrei LDL-P; 974222-EQF Size; 071473-IO-JQ Scorewas developed and its performance characteristics determinedby [employer]. It has not been cleared or approved by the Foodand Drug Administration.PATIENT WAS FASTINGPERFORMED BY: [employer] [id number] BY: SCI SolutionBacharach Institute for RehabilitationYjdhtu3737 [facility] [id number] Neutrophils (Bld) [#/Vol] 3.7 10*3/uL Normal 1.4-7.0 [facility]; [facility] Work Phone: Comment on above: Test(s) 905633-IKB-Y ; 765424-TIE-V; 908281-Xjxhxvimwewdu; 021360-Elbpmkvspbt, Total; 120438-XHL-L (Total); 866482-Nrznj LDL-P; 019361-NUB Size; 290385-HX-LD Scorewas developed and its performance characteristics determinedby [employer]. It has not been cleared or approved by the Foodand Drug Administration.PATIENT WAS FASTINGPERFORMED BY: [employer] [id number] BY: SCI SolutionRehoboth McKinley Christian Health Care ServicesGplwmm8369 [facility] [id number] Neutrophils/100 WBC (Bld) 53 % Normal [facility] Work Phone: Comment on above: Test(s) 271482-GZI-J ; 201774-KEQ-C; 743906-Kxamatdyiazmr; 977204-Dnqrkljrcjw, Total; 843950-MJN-R (Total); 502280-Tuvpe LDL-P; 419774-RUQ Size; 785917-ZG-ZX Scorewas developed and its performance characteristics determinedby [employer]. It has not been cleared or approved by the Foodand Drug Administration.PATIENT WAS FASTINGPERFORMED BY: [employer] [address] [id number] BY: [employer]70 [facility] [id number] Platelets (Bld) [#/Vol] 330 {x10E3/uL} Normal 150-450 [facility] Work Phone: Comment on above: Test(s) 816291-BWE-X ; 869167-ZQV-K; 380464-Jgwxeuevqkebt; 239666-Bptiecelcmm, Total; 990604-KYY-L (Total); 043717-Gihxv LDL-P; 787157-BCW Size; 814458-AJ-OY Scorewas developed and its performance characteristics determinedby [employer]. It has not been cleared or approved by the Foodand Drug Administration.PATIENT WAS FASTINGPERFORMED BY: [employer] [id number] BY: Munch a BunchBacharach Institute for RehabilitationXokrjv1074 [facility] [id number] Platelets (Bld) [#/Vol] 330 10*3/uL Normal 150-450 [facility]; [facility] Work Phone: Comment on above: Test(s) 387146-BLE-V ; 672642-AJG-I; 326015-Ypczoarbbjhuz; 038539-Qmneoymhzgh, Total; 494926-TNO-P (Total); 257781-Saccn LDL-P; 484554-MXC Size; 527262-ED-EU Scorewas developed and its performance characteristics determinedby [employer]. It has not been cleared or approved by the Foodand Drug Administration.PATIENT WAS FASTINGPERFORMED BY: [employer] [address] [id number] BY: [employer]6370 [facility] [id number] RBC (Bld) [#/Vol] 4.78 {x10E6/uL} Normal 3.77-5.28 [facility] Internal Medicine Work Phone: Comment on above: Test(s) 211584-UWQ-W ; 750396-ODA-C; 231063-Lboxfqbljdovp; 427257-Obqjadcepxt, Total; 410948-OFC-Z (Total); 716820-Tzfvb LDL-P; 462871-RNW Size; 872459-YI-XO Scorewas developed and its performance characteristics determinedby [employer]. It has not been cleared or approved by the Foodand Drug Administration.PATIENT WAS FASTINGPERFORMED BY: [employer] [address] [id number] BY: Moodyo6370 [facility] [id number] RBC (Bld) [#/Vol] 4.78 10*6/uL Normal 3.77-5.28 [facility] Internal Medicine; [facility] Internal Medicine Work Phone: Comment on above: Test(s) 323693-XDE-O ; 246244-RDQ-I; 151349-Lezoymekaxozf; 609259-Iagcvwrvwsa, Total; 665899-NAI-N (Total); 387484-Abodu LDL-P; 443263-XXA Size; 243244-RK-RE Scorewas developed and its performance characteristics determinedby [employer]. It has not been cleared or approved by the Foodand Drug Administration.PATIENT WAS FASTINGPERFORMED BY: [employer] [address] [id number] BY: [employer]70 [facility] [id number] WBC (Bld) [#/Vol] 7.1 {x10E3/uL} Normal 3.4-10.8 [facility] Internal Medicine Work Phone: Comment on above: Test(s) 262984-PWO-Y ; 452664-QGM-F; 648472-Twlqjyztbqdes; 068197-Zsddjyfjydn, Total; 021809-LTA-G (Total); 230727-Oetre LDL-P; 372629-FQG Size; 760335-TM-MG Scorewas developed and its performance characteristics determinedby [employer]. It has not been cleared or approved by the Foodand Drug Administration.PATIENT WAS FASTINGPERFORMED BY: [employer] [id number] BY: Moodyo6370 [facility] [id number] WBC (Bld) [#/Vol] 7.1 10*3/uL Normal 3.4-10.8 [facility] Internal Medicine; [facility] Internal Medicine Work Phone: Comment on above: Test(s) 948449-EXO-R ; 538310-JEQ-D; 285354-Gmhknsjjxjanf; 243150-Ajlzhkxwypv, Total; 912674-FVK-J (Total); 549191-Rqacp LDL-P; 805937-GSL Size; 996916-ZK-EU Scorewas developed and its performance characteristics determinedby [employer]. It has not been cleared or approved by the Foodand Drug Administration.PATIENT WAS FASTINGPERFORMED BY: [employer] [address] [id number] BY: Moodyo6370 [facility] [id number] METABOLIC PANEL, COMPREHENSI VE (11092)Ordered By: Flight Reservations Manager on 07-15-2020 Albumin [Mass/Vol] 4.1 g/dL Normal 3.8-4.8 [facility] Internal Medicine Work Phone: Comment on above: Test(s) 977492-CKL-I ; 276974-QSA-P; 953126-Ydigcfcdyfluy; 011826-Yfpweduqjzq, Total; 370552-CWS-H (Total); 424555-Mobqa LDL-P; 362169-SJF Size; 213094-GG-AI Scorewas developed and its performance characteristics determinedby [employer]. It has not been cleared or approved by the Foodand Drug Administration.PATIENT WAS FASTINGPERFORMED BY: [employer] [address] [id number] BY: [employer]70 [facility] [id number] Albumin/Globulin [Mass ratio] 1.6 {ratio} Normal 1.2-2.2 [facility] Work Phone: Comment on above: Test(s) 279531-MIM-V ; 539480-UZK-B; 950548-Wtupilkemgbwa; 780804-Kdvuzbadmdw, Total; 233907-KFE-G (Total); 312704-Yosib LDL-P; 342358-CVR Size; 447155-OC-BK Scorewas developed and its performance characteristics determinedby [employer]. It has not been cleared or approved by the Foodand Drug Administration.PATIENT WAS FASTINGPERFORMED BY: [employer] [address] [id number] BY: [employer]70 [facility] [id number] ALP [Catalytic activity/Vol] 95 [iU]/L Normal 39-117 [facility] Work Phone: Comment on above: Test(s) 076302-CFN-L ; 077447-JPE-M; 725290-Owmhpnmrjixxh; 787901-Opbsycrqjot, Total; 914003-ADL-V (Total); 968268-Eaggm LDL-P; 498892-EWM Size; 569450-GP-MT Scorewas developed and its performance characteristics determinedby [employer]. It has not been cleared or approved by the Foodand Drug Administration.PATIENT WAS FASTINGPERFORMED BY: [employer] [address] [id number] BY: CogniSensblin [place] [id number] ALP [Catalytic activity/Vol] 95 U/L Normal 39-117 [facility]; [facility] Work Phone: Comment on above: Test(s) 234098-ZWM-I ; 521995-HLZ-L; 667059-Vqiwsuttpfswb; 821461-Dsqksykyndi, Total; 800688-YNN-Q (Total); 635596-Vstiz LDL-P; 004720-TPF Size; 413311-TC-QX Scorewas developed and its performance characteristics determinedby [employer]. It has not been cleared or approved by the Foodand Drug Administration.PATIENT WAS FASTINGPERFORMED BY: [employer] [address] [id number] BY: SCI SolutionBacharach Institute for RehabilitationAaekee1842 [facility] [id number] ALT [Catalytic activity/Vol] 26 [iU]/L Normal 0-32 [facility] Internal Medicine Work Phone: Comment on above: Test(s) 442022-WEB-R ; 058062-ERQ-X; 092393-Zwsaimhqeqkht; 934627-Gpogfkshegf, Total; 062431-LDZ-P (Total); 005928-Ugpzu LDL-P; 823451-OQH Size; 502337-JW-OB Scorewas developed and its performance characteristics determinedby [employer]. It has not been cleared or approved by the Foodand Drug Administration.PATIENT WAS FASTINGPERFORMED BY: [employer] [id number] BY: SCI SolutionBacharach Institute for RehabilitationRlocvp2589 [facility] [id number] ALT [Catalytic activity/Vol] 26 U/L Normal 0-32 [facility]; [facility] Work Phone: Comment on above: Test(s) 755749-IPL-H ; 215395-FOU-C; 564243-Ngcdkkddfbciw; 470589-Sbtmzcmuosf, Total; 726037-ASA-C (Total); 512460-Nnocy LDL-P; 179300-LPI Size; 639232-WE-RE Scorewas developed and its performance characteristics determinedby [employer]. It has not been cleared or approved by the Foodand Drug Administration.PATIENT WAS FASTINGPERFORMED BY: [employer] [id number] BY: SCI SolutionBacharach Institute for RehabilitationAsszpi6575 [facility] [id number] AST [Catalytic activity/Vol] 21 [iU]/L Normal 0-40 [facility] Work Phone: Comment on above: Test(s) 648411-DNE-M ; 435306-RFX-Z; 705428-Sbstcqcuswumx; 685452-Saaciledrhs, Total; 158323-XDA-R (Total); 231774-Knudb LDL-P; 673538-ALC Size; 086881-YC-MX Scorewas developed and its performance characteristics determinedby [employer]. It has not been cleared or approved by the Foodand Drug Administration.PATIENT WAS FASTINGPERFORMED BY: [employer] [address] [id number] BY: SCI SolutionJonathan [place] 9046970 [facility] [id number] AST [Catalytic activity/Vol] 21 U/L Normal 0-40 [facility]; [facility] Internal Medicine Work Phone: Comment on above: Test(s) 152617-JGJ-Q ; 005580-EUG-L; 718258-Qonkbdzouqdmb; 762627-Ohyfkmqwujo, Total; 181342-OEM-M (Total); 512346-Xquuy LDL-P; 688940-ZVY Size; 440624-JR-HD Scorewas developed and its performance characteristics determinedby [employer]. It has not been cleared or approved by the Foodand Drug Administration.PATIENT WAS FASTINGPERFORMED BY: [employer] [id number] BY: SCI SolutionBacharach Institute for RehabilitationKzdeze2634 [facility] [id number] Bilirubin [Mass/Vol] 0.4 mg/dL Normal 0.0-1.2 [facility] Work Phone: Comment on above: Test(s) 398606-FNL-M ; 074432-OYT-T; 261875-Dybyypyobglre; 616171-Iqdbwihuevg, Total; 758922-PXC-R (Total); 980440-Ccgkr LDL-P; 485451-MTJ Size; 168429-PK-CS Scorewas developed and its performance characteristics determinedby [employer]. It has not been cleared or approved by the Foodand Drug Administration.PATIENT WAS FASTINGPERFORMED BY: [employer] [id number] BY: [employer]70 [facility] [id number] Calcium [Mass/Vol] 9.7 mg/dL Normal 8.7-10.3 [facility] Internal Medicine Work Phone: Comment on above: Test(s) 524398-TCL-X ; 998091-PRD-B; 894788-Rjfoyzdjaocls; 278358-Schlgnzefvg, Total; 756378-UOM-V (Total); 460869-Gzbql LDL-P; 547842-OFH Size; 661695-WI-LQ Scorewas developed and its performance characteristics determinedby [employer]. It has not been cleared or approved by the Foodand Drug Administration.PATIENT WAS FASTINGPERFORMED BY: [employer] [id number] BY: Moodyo6370 [facility] [id number] Chloride [Moles/Vol] 101 mmol/L Normal 96-106 [facility] Internal Medicine Work Phone: Comment on above: Test(s) 665369-SLR-W ; 837670-WZU-J; 290857-Zrqniofeudlzt; 761369-Zudfppxwdpb, Total; 579262-EZA-N (Total); 315882-Ppled LDL-P; 900879-CTM Size; 472380-UB-IQ Scorewas developed and its performance characteristics determinedby [employer]. It has not been cleared or approved by the Foodand Drug Administration.PATIENT WAS FASTINGPERFORMED BY: [employer] [id number] BY: Branch Eumkie4128 [facility] [id number] CO2 [Moles/Vol] 27 mmol/L Normal 20-29 [facility] Internal Medicine Work Phone: Comment on above: Test(s) 622237-CRS-F ; 731558-KHI-Z; 983645-Qrfnnfkuuwhye; 381113-Fopljvhtjlg, Total; 946206-TQM-C (Total); 222941-Asgno LDL-P; 612105-URO Size; 955249-JR-BX Scorewas developed and its performance characteristics determinedby [employer]. It has not been cleared or approved by the Foodand Drug Administration.PATIENT WAS FASTINGPERFORMED BY: [employer] [id number] BY: Moodyo6370 [facility] [id number] Creatinine [Mass/Vol] 0.70 mg/dL Normal 0.57-1.00 [facility] Internal Medicine Work Phone: Comment on above: Test(s) 660960-TUX-U ; 648678-BLY-Q; 246435-Befilsidsqucj; 243347-Daccrhjzxhj, Total; 329544-FBY-D (Total); 830591-Ifdma LDL-P; 421758-YSZ Size; 488871-KR-UZ Scorewas developed and its performance characteristics determinedby [employer]. It has not been cleared or approved by the Foodand Drug Administration.PATIENT WAS FASTINGPERFORMED BY: Immusoft[address] [id number] BY: Branch Bccmgd2885 [facility] [id number] GFR/1.73 sq M predicted among blacks CKD-EPI (S/P/Bld) [Vol rate/Area] 102 mL/min/1.73 Normal [facility] Internal Medicine Work Phone: Comment on above: Test(s) 540172-RNN-A ; 362717-FZC-O; 133468-Xbicwmcodslky; 357539-Fplvnlwcjka, Total; 499580-ZZM-B (Total); 009082-Fwfnk LDL-P; 308367-BYO Size; 519743-RA-OE Scorewas developed and its performance characteristics determinedby [employer]. It has not been cleared or approved by the Foodand Drug Administration.PATIENT WAS FASTINGPERFORMED BY: [employer] [address] [id number] BY: [employer]6370 [facility] [id number] GFR/1.73 sq M predicted among non-blacks CKD-EPI (S/P/Bld) [Vol rate/Area] 88 mL/min/1.73 Normal [facility] Work Phone: Comment on above: Test(s) 367537-WJB-K ; 765721-DLO-B; 499223-Ocfyjmvjbulzl; 845738-Avtvkblmbgf, Total; 281044-AHW-T (Total); 702061-Fqpbn LDL-P; 938552-FGW Size; 785094-LV-UF Scorewas developed and its performance characteristics determinedby [employer]. It has not been cleared or approved by the Foodand Drug Administration.PATIENT WAS FASTINGPERFORMED BY: [employer] [address] [id number] BY: Moodyo6370 [facility] [id number] Globulin (S) [Mass/Vol] 2.5 g/dL Normal 1.5-4.5 [facility] Work Phone: Comment on above: Test(s) 802465-DVC-D ; 658376-QWJ-M; 590985-Fnvbagweodgct; 020877-Jxedzzvkrve, Total; 409174-KZE-U (Total); 231329-Bypmy LDL-P; 652420-WJW Size; 748872-GD-OF Scorewas developed and its performance characteristics determinedby [employer]. It has not been cleared or approved by the Foodand Drug Administration.PATIENT WAS FASTINGPERFORMED BY: [employer] [address] [id number] BY: [employer]70 [facility] [id number] Glucose [Mass/Vol] 90 mg/dL Normal 65-99 [facility] Internal Medicine Work Phone: Comment on above: Test(s) 486629-PCS-Q ; 602582-NNC-U; 067737-Kidscbhbszlkh; 296011-Pucycplwqnh, Total; 705294-AFQ-X (Total); 583161-Wffjq LDL-P; 830816-IOR Size; 176071-ZC-BT Scorewas developed and its performance characteristics determinedby [employer]. It has not been cleared or approved by the Foodand Drug Administration.PATIENT WAS FASTINGPERFORMED BY: [employer] [id number] BY: Moodyo6370 [facility] [id number] Potassium [Moles/Vol] 3.8 mmol/L Normal 3.5-5.2 [facility] Internal [facility] Work Phone: Comment on above: Test(s) 302070-AHU-E ; 905211-ZRB-P; 611316-Dyvujqpkuynnx; 522408-Mvxjjfkiuwk, Total; 747494-NWE-D (Total); 444693-Wcvpq LDL-P; 026284-UHH Size; 075185-NR-MN Scorewas developed and its performance characteristics determinedby [employer]. It has not been cleared or approved by the Foodand Drug Administration.PATIENT WAS FASTINGPERFORMED BY: [employer] [address] [id number] BY: Branch Etuwgk0201 [facility] [id number] Protein [Mass/Vol] 6.6 g/dL Normal 6.0-8.5 [facility] Internal [facility] Work Phone: Comment on above: Test(s) 069511-QTB-W ; 183693-NHK-Z; 188955-Ssuzipwrgstru; 157061-Piwaqixzqwn, Total; 287823-HEQ-C (Total); 186405-Lcriz LDL-P; 999459-JSZ Size; 018240-WG-FO Scorewas developed and its performance characteristics determinedby [employer]. It has not been cleared or approved by the Foodand Drug Administration.PATIENT WAS FASTINGPERFORMED BY: [employer] [address] [id number] BY: SCI SolutionRehoboth McKinley Christian Health Care ServicesPaqdrz4867 [facility] [id number] Sodium [Moles/Vol] 142 mmol/L Normal 134-144 [facility] Internal Medicine Work Phone: Comment on above: Test(s) 629736-KOC-C ; 500615-UBT-J; 263452-Lynupblmdhmwv; 327853-Qxlorsazpzv, Total; 794776-JYM-U (Total); 359488-Zghxc LDL-P; 559835-ZDT Size; 978338-KL-QD Scorewas developed and its performance characteristics determinedby [employer]. It has not been cleared or approved by the Foodand Drug Administration.PATIENT WAS FASTINGPERFORMED BY: [employer] [address] [id number] BY: Moodyo6370 [facility] [id number] Urea nitrogen [Mass/Vol] 13 mg/dL Normal 8- [facility] Internal Medicine Work Phone: Comment on above: Test(s) 062417-IKA-F ; 844058-NGO-M; 209799-Ldglcgngojnkm; 270954-Etjskyqjcug, Total; 679449-VOL-D (Total); 755626-Wlerb LDL-P; 490351-XGF Size; 219952-ES-WU Scorewas developed and its performance characteristics determinedby [employer]. It has not been cleared or approved by the Foodand Drug Administration.PATIENT WAS FASTINGPERFORMED BY: [employer] [address] [id number] BY: Munch a BunchBacharach Institute for RehabilitationOtnmqf1200 [facility] [id number] Urea nitrogen/Creatinine [Mass ratio] 19 mg/mg Normal 12- [facility] Internal Medicine Work Phone: Comment on above: Test(s) 383628-HAQ-R ; 298127-AKP-X; 869786-Ypsnqhiufshrt; 949737-Grvyqtslmpo, Total; 182146-HYV-O (Total); 268735-Uipwo LDL-P; 460821-VDD Size; 129580-XU-MC Scorewas developed and its performance characteristics determinedby [employer]. It has not been cleared or approved by the Foodand Drug Administration.PATIENT WAS FASTINGPERFORMED BY: [employer] [address] [id number] BY: [employer]70 [facility] [id number] MICROALBUMINOrdered By: Syst em Electroencephalographic Technologist on 07-15-2020 Albumin DL <= 20 mg/L (U) [Mass/Vol] 10.3 ug/mL Normal [facility] Work Phone: Comment on above: Test(s) 296005-LJL-G ; 342327-CTO-O; 547146-Zrjckvlfapzud; 360924-Myhojwzrfos, Total; 810190-NNI-K (Total); 594321-Wyxrp LDL-P; 987873-SUU Size; 296344-XA-XB Scorewas developed and its performance characteristics determinedby [employer]. It has not been cleared or approved by the Foodand Drug Administration.PATIENT WAS FASTINGPERFORMED BY: [employer] [address] [id number] BY: [employer]70 [facility] [id number] Albumin/Creatinine (U) [Mass ratio] 6 {mg/g_creat} Normal 0-29 [facility] Work Phone: Comment on above: Normal: 0 - 29 Moder ately increased: 30 - 300 Severely increased: >300 Test(s) 280585-DOH-U ; 842829-FHC-K; 239570-Arldryixxjhkd; 470300-Lyyszddsogu, Total; 762465-NYD-G (Total); 690386-Bnobl LDL-P; 777373-SHE Size; 199557-VR-YH Scorewas developed and its performance characteristics determinedby [employer]. It has not been cleared or approved by the Foodand Drug Administration.PATIENT WAS FASTINGPERFORMED BY: [employer] [address] [id number] BY: [employer]70 [address] [facility] [id number] Creatinine (U) [Mass/Vol] 184.8 mg/dL Normal [facility] Work Phone: Comment on above: Test(s) 623358-WNR-Z ; 160460-ZVK-P; 724715-Scqhhndjvxfjy; 437925-Lrdvhqexxpq, Total; 109961-OBS-C (Total); 064692-Qzcqa LDL-P; 262746-ZUK Size; 596417-XE-BR Scorewas developed and its performance characteristics determinedby [employer]. It has not been cleared or approved by the Foodand Drug Administration.PATIENT WAS FASTINGPERFORMED BY: [employer] [address] [id number] BY: Moodyo6370 [facility] [id number] NMR Profile (39016)Ordered B y: Flight Reservations Manager on 07-15-2020 Cholesterol [Mass/Vol] 190 mg/dL Normal 100-199 [facility] Internal Medicine Work Phone: Comment on above: Test(s) 406610-JBY-C ; 196208-OII-N; 043508-Ggvwewhyeihcm; 774980-Larbgwggcfi, Total; 589426-FXS-L (Total); 281279-Ckvhn LDL-P; 545906-TJE Size; 924282-UI-YA Scorewas developed and its performance characteristics determinedby [employer]. It has not been cleared or approved by the Foodand Drug Administration.PATIENT WAS FASTINGPERFORMED BY: [employer] [id number] BY: Moodyo6370 [facility] [id number] Cholesterol in HDL [Mass/Vol] 60 mg/dL Normal [facility] Work Phone: Comment on above: Test(s) 983704-HCH-V ; 534705-BWY-Z; 881655-Fxmmyetmrtknd; 416577-Duektchptid, Total; 978147-WEJ-N (Total); 024864-Otirv LDL-P; 343224-KYG Size; 522026-IH-GM Scorewas developed and its performance characteristics determinedby [employer]. It has not been cleared or approved by the Foodand Drug Administration.PATIENT WAS FASTINGPERFORMED BY: [employer] [id number] BY: [employer]70 Dizko SamuraiUNC Hospitals Hills[facility] Campus [id number] Lipoprotein.alpha [Moles/Vol] 38.2 umol/L Normal [facility] Internal Medicine Work Phone: Comment on above: Test(s) 968198-ERQ-F ; 298198-RPE-B; 756472-Thvkufxivqden; 325479-Scqjdlsguct, Total; 596111-SEK-R (Total); 534855-Rzlhd LDL-P; 547669-OVA Size; 396698-MK-SZ Scorewas developed and its performance characteristics determinedby [employer]. It has not been cleared or approved by the Foodand Drug Administration.PATIENT WAS FASTINGPERFORMED BY: [employer] [id number] BY: [employer]70 Dizko SamuraiUNC Hospitals Hills[facility] Campus [id number] Lipoprotein.beta.subpar ticle [Entitic length] 20.6 nm Normal [facility] Internal Medicine Work Phone: Comment on above: INTERPRETATIVE INFORMATION PARTICLE CONCENTRATION AND SIZE <--Lower CVD Risk Higher CVD Risk--> LDL AND HDL PARTICLES Percentile in Reference Population HDL-P (total) High 75th 50th 25th Low >34.9 34.9 30.5 26.7 <26.7 . Small LDL-P Low 25th 50th 75th High <117 117 527 839 >839 . LDL Size <-Large (Pattern A)-> <-Small (Pattern B)-> 23.0 20.6 20.5 19.0 Smal l LDL-P and LDL Size are associated with CVD risk, but not afterLDL-P is taken into account. Test(s) 205613-LEZ-K ; 014650-NXQ-H; 702708-Ryacovtoghedw; 752192-Wjutpzfgbby, Total; 577169-JBW-N (Total); 456800-Odhhz LDL-P; 076338-KQK Size; 171363-WH-BC Scorewas developed and its performance characteristics determinedby [employer]. It has not been cleared or approved by the Foodand Drug Administration.PATIENT WAS FASTINGPERFORMED BY: Bridg [facility] [id number] BY: CogniSensAtrium Health [facility] [id number] Lipoprotein.beta.subpar ticle [Moles/Vol] 1311 nmol/L Abnormal [facility] Work Phone: Comment on above: Low < 1000 Moderate 1000 - 1299 Borderline-High 1300 - 1599 High 1600 - 2000 Very High > 2000 Test(s) 059989-OKS-D ; 729530-YSJ-I; 419827-Rzpdfigqyfieg; 676971-Fkppvnvemiq, Total; 119786-VUR-R (Total); 393384-Loxia LDL-P; 096909-SPO Size; 727425-ZZ-QI Scorewas developed and its performance characteristics determinedby [employer]. It has not been cleared or approved by the Foodand Drug Administration.PATIENT WAS FASTINGPERFORMED BY: [employer] [id number] BY: [employer]70 Dizko SamuraiUNC Hospitals Hills[facility] Campus [id number] Lipoprotein.beta.subpar ticle.small [Moles/Vol] 669 nmol/L Abnormal Comprehe nsive Internal Medicine Work Phone: Comment on above: Test(s) 001157-CVF-L ; 995554-HFY-Q; 370125-Beksseuiqehzb; 696491-Kejasklxcjf, Total; 111985-AHQ-H (Total); 140965-Dvunk LDL-P; 945082-XSN Size; 837208-UQ-WQ Scorewas developed and its performance characteristics determinedby [employer]. It has not been cleared or approved by the Foodand Drug Administration.PATIENT WAS FASTINGPERFORMED BY: [employer] [id number] BY: [employer]70 [facility] [id number] Triglyceride [Mass/Vol] 135 mg/dL Normal 0-149 [facility] Work Phone: Comment on above: Test(s) 177283-FIA-D ; 864500-XOA-H; 498627-Dphssmjohtcol; 009624-Kftntvmpknz, Total; 364768-XNV-A (Total); 044179-Lrikd LDL-P; 156074-NHQ Size; 684563-FX-VJ Scorewas developed and its performance characteristics determinedby [employer]. It has not been cleared or approved by the Foodand Drug Administration.PATIENT WAS FASTINGPERFORMED BY: [employer] [id number] BY: Moodyo6370 [facility] [id number] NMR Profile (33966) 106 mg/dL Abnormal 0-99 Compr ehensive Internal Medicine Work Phone: Comment on above: . Optimal < 100 Abov e optimal 100 - 129 Borderline 130 - 159 High 160 - 189 Very high > 189 . Test(s) 357619-TAB-S ; 835641-DBI-K; 592812-Qxskdvzfhuunk; 430896-Txkvernhyob, Total; 504617-OJQ-I (Total); 699717-Snkhj LDL-P; 713936-RGK Size; 753974-TN-LR Scorewas developed and its performance characteristics determinedby [employer]. It has not been cleared or approved by the Foodand Drug Administration.PATIENT WAS FASTINGPERFORMED BY: [employer] Rkmwzomcbk1199 [facility] [id number] BY: Branch Wjpldu8123 [facility] [id number] NMR Profile (04897) 60 mg/dL Normal Compr ehensive Internal Medicine; [facility] Work Phone: NMR Profile (84771) 135 mg/dL Normal 0-149 Compr ehensive [facility] Medicine; [facility] Work Phone: NMR Profile (55386) 190 mg/dL Normal 100-199 Compr ehensive Internal Medicine; [facility] Work Phone: TSH (12175)Ordered By: [employer] m Electroencephalographic Technologist on 07-15-2020 TSH Qn 5.100 {uIU/mL} Abnormal 0.450-4.50 0 [facility] Work Phone: Comment on above: Test(s) 890749-LZK-T ; 836678-LWB-O; 409321-Znueqghnjgyds; 408089-Xpffkrkhqtr, Total; 341646-JTV-N (Total); 165860-Jcqoh LDL-P; 343997-QWP Size; 447277-GD-BS Scorewas developed and its performance characteristics determinedby [employer]. It has not been cleared or approved by the Foodand Drug Administration.PATIENT WAS FASTINGPERFORMED BY: [employer] Noktwrttnz8292 [facility] [id number] BY: Branch Mjeyzy5759 [facility] [id number] URINALYSIS, W/ MICRO (72358) Ordered By: Flight Reservations Manager on 07-15-2020 Appearance (U) Clear Normal Comprehens [facility] Internal Medicine Work Phone: Comment on above: Test(s) 877148-YPB-H ; 831047-XZA-P; 133888-Gmaqtnjgqsqxq; 372866-Yfsqhumbhlw, Total; 037109-OUP-Y (Total); 919128-Awepq LDL-P; 486278-CNY Size; 989947-HP-BJ Scorewas developed and its performance characteristics determinedby [employer]. It has not been cleared or approved by the Foodand Drug Administration.PATIENT WAS FASTINGPERFORMED BY: [employer] [address] [id number] BY: [employer]70 SmartFlow TechnologiesAtrium Health [facility] [id number] Bilirubin Ql (U) Negative Normal Comprehe nsive Internal Medicine Work Phone: Comment on above: Test(s) 940857-QJR-H ; 317379-NFC-C; 059932-Qziwuwqaalshu; 150072-Imwaekduvkz, Total; 768688-VWI-U (Total); 496248-Oiblr LDL-P; 819851-ARZ Size; 184532-DT-RP Scorewas developed and its performance characteristics determinedby [employer]. It has not been cleared or approved by the Foodand Drug Administration.PATIENT WAS FASTINGPERFORMED BY: [employer] [address] [id number] BY: [employer]70 [facility]Tr[facility] [id number] Bilirubin Ql (U) Negative Normal Comprehe nsive Internal Medicine; [facility] Work Phone: Comment on above: Test(s) 745956-TYT-U ; 633386-MET-Q; 422653-Qvcphcfsmhccl; 677144-Gdwfmbgkuyt, Total; 015319-JNA-Y (Total); 566059-Wvodf LDL-P; 071983-NWA Size; 121931-OZ-WI Scorewas developed and its performance characteristics determinedby [employer]. It has not been cleared or approved by the Foodand Drug Administration.PATIENT WAS FASTINGPERFORMED BY: [employer] [address] [id number] BY: Moodyo6370 SmartFlow TechnologiesAtrium Health [facility] [id number] Color (U) Yellow Normal [facility] Work Phone: Comment on above: Test(s) 310903-UJA-P ; 827519-RHF-O; 016232-Sctrccojcjdax; 639662-Wyfypapioyj, Total; 901240-UDP-N (Total); 823136-Wexnt LDL-P; 729640-IVE Size; 744710-ZW-HL Scorewas developed and its performance characteristics determinedby [employer]. It has not been cleared or approved by the Foodand Drug Administration.PATIENT WAS FASTINGPERFORMED BY: [employer] [address] [id number] BY: [employer]70 [facility] [id number] Glucose Ql (U) Negative Normal Comprehens [facility] Work Phone: Comment on above: Test(s) 049334-MDA-M ; 108993-FQX-H; 145628-Vdjzmmyebekjc; 500893-Vsungsfckox, Total; 566514-DRT-I (Total); 882360-Jpxbx LDL-P; 208135-CKN Size; 252271-JA-TK Scorewas developed and its performance characteristics determinedby [employer]. It has not been cleared or approved by the Foodand Drug Administration.PATIENT WAS FASTINGPERFORMED BY: [employer] [address] [id number] BY: [employer]70 [facility] [id number] Glucose Ql (U) Negative Normal Comprehens [facility]; [facility] Work Phone: Comment on above: Test(s) 772392-OVM-Z ; 021229-RWR-R; 486123-Wpudxmumcahki; 146661-Sgarjxrfqeg, Total; 369952-JZA-G (Total); 907799-Puehs LDL-P; 044991-TBS Size; 073398-OW-II Scorewas developed and its performance characteristics determinedby [employer]. It has not been cleared or approved by the Foodand Drug Administration.PATIENT WAS FASTINGPERFORMED BY: [employer] [address] [id number] BY: [employer]70 [place] LeapfunderUNC Hospitals [facility] Campus [id number] Hemoglobin Ql (U) Negative Normal Compreh ensive Internal Medicine Work Phone: Comment on above: Test(s) 227040-ESX-D ; 813533-QVC-I; 954064-Umnferepgmzqb; 626961-Ryptqikmqkp, Total; 733159-LHN-D (Total); 540666-Wgmvp LDL-P; 753459-ZWY Size; 616246-QJ-BK Scorewas developed and its performance characteristics determinedby [employer]. It has not been cleared or approved by the Foodand Drug Administration.PATIENT WAS FASTINGPERFORMED BY: [employer] [address] [id number] BY: [employer]70 [facility] [id number] Hemoglobin Ql (U) Negative Normal Compreh ensive Internal Medicine; [facility] Work Phone: Comment on above: Test(s) 128812-XCZ-D ; 153392-GHG-J; 957633-Gdxrhyodzpexj; 901600-Vuurwiepwkp, Total; 348797-ZIR-R (Total); 413603-Fitwf LDL-P; 726508-HSH Size; 640392-VP-HN Scorewas developed and its performance characteristics determinedby [employer]. It has not been cleared or approved by the Foodand Drug Administration.PATIENT WAS FASTINGPERFORMED BY: [employer] [address] [id number] BY: Branch Dsxton3183 [facility] [id number] Ketones Ql (U) Negative Normal Comprehens [facility] Work Phone: Comment on above: Test(s) 123527-DVP-O ; 454446-AEY-J; 010707-Dlfbfyjaoxltt; 521287-Bkxweekhdev, Total; 029156-PVG-K (Total); 794039-Ssfwy LDL-P; 045393-IGC Size; 461898-RQ-CE Scorewas developed and its performance characteristics determinedby [employer]. It has not been cleared or approved by the Foodand Drug Administration.PATIENT WAS FASTINGPERFORMED BY: [employer] [address] [id number] BY: [employer]70 Dizko SamuraiUNC Hospitals Hills[facility] Campus [id number] Ketones Ql (U) Negative Normal Comprehens [facility]; [facility] Work Phone: Comment on above: Test(s) 501158-SFI-N ; 495114-KKW-W; 192608-Opxjorrbetpoi; 801099-Stfoxarkfuw, Total; 864867-VLH-Q (Total); 572374-Ckloo LDL-P; 816490-RNN Size; 215848-JN-TU Scorewas developed and its performance characteristics determinedby [employer]. It has not been cleared or approved by the Foodand Drug Administration.PATIENT WAS FASTINGPERFORMED BY: [employer] [address] [id number] BY: [employer]70 SmartFlow TechnologiesAtrium Health [facility] [id number] Leukocyte esterase Test strip Ql (U) 1+ Abnormal [facility] Work Phone: Comment on above: Test(s) 302371-WHZ-I ; 379916-IEM-X; 298050-Vwodosvtghfel; 449562-Zcejiajqrzb, Total; 762843-WXY-O (Total); 945361-Jjlso LDL-P; 708045-VDK Size; 166224-IS-ID Scorewas developed and its performance characteristics determinedby [employer]. It has not been cleared or approved by the Foodand Drug Administration.PATIENT WAS FASTINGPERFORMED BY: [employer] [address] [id number] BY: Livio Radiolin6370 [place] LeapfunderUNC Hospitals Hills[facility] Campus [id number] Microscopic observation LM Nom (Urine sed) See below: Normal [facility] Work Phone: Comment on above: Microscopic was al cated and was performed. Test(s) 527323-ATY-D ; 263696-BPA-F; 037592-Zmzgiyqyqmxip; 876944-Udfsjshicdv, Total; 535136-EUT-J (Total); 534450-Cqhgx LDL-P; 299284-FMG Size; 539784-OM-BC Scorewas developed and its performance characteristics determinedby [employer]. It has not been cleared or approved by the Foodand Drug Administration.PATIENT WAS FASTINGPERFORMED BY: [employer] [id number] BY: [employer] Arqbue2623 [facility] [id number] Nitrite Ql (U) Negative Normal Comprehens [facility] Work Phone: Comment on above: Test(s) 713832-QGU-N ; 506093-UGR-Y; 061108-Biyuqflhjqcow; 554157-Owsuspmyizv, Total; 564263-PSS-Q (Total); 920235-Nxsxj LDL-P; 464963-FDU Size; 833092-PD-OJ Scorewas developed and its performance characteristics determinedby [employer]. It has not been cleared or approved by the Foodand Drug Administration.PATIENT WAS FASTINGPERFORMED BY: [employer] [address] [id number] BY: [employer]70 SmartFlow TechnologiesAtrium Health [facility] [id number] Nitrite Ql (U) Negative Normal Comprehens [facility] Internal Medicine; [facility] Work Phone: Comment on above: Test(s) 460123-MDX-K ; 847804-ODY-K; 078433-Nfmiwkesswvco; 647669-Rjakhwlvcvm, Total; 736006-LWJ-C (Total); 389645-Dhlgo LDL-P; 663811-FCZ Size; 673702-VU-CX Scorewas developed and its performance characteristics determinedby [employer]. It has not been cleared or approved by the Foodand Drug Administration.PATIENT WAS FASTINGPERFORMED BY: [employer] [address] [id number] BY: Munch a Bunch Rqyvgx1649 Dizko SamuraiUNC Hospitals Hills[facility] Campus [id number] pH (U) 6.5 [pH] Normal 5.0-7.5 [facility] Work Phone: Comment on above: Test(s) 031586-FCF-O ; 244170-OME-A; 257096-Slgmlnjkvrsts; 534187-Dtdirokouic, Total; 188725-AKS-T (Total); 303519-Uhfmv LDL-P; 395731-EWG Size; 182099-ZQ-YK Scorewas developed and its performance characteristics determinedby [employer]. It has not been cleared or approved by the Foodand Drug Administration.PATIENT WAS FASTINGPERFORMED BY: [employer] [address] [id number] BY: [employer]70 [facility] [id number] Protein Ql (U) Negative Normal Comprehens [facility]olph Internal Medicine Work Phone: Comment on above: Test(s) 847095-ABR-T ; 708308-MTV-W; 655401-Dtrrizpldaofj; 515450-Iqlflospyhy, Total; 931411-VZG-J (Total); 222388-Bhvls LDL-P; 097197-HQC Size; 546890-FQ-VJ Scorewas developed and its performance characteristics determinedby [employer]. It has not been cleared or approved by the Foodand Drug Administration.PATIENT WAS FASTINGPERFORMED BY: [employer] [address] [id number] BY: [employer]70 [facility] [id number] Protein Ql (U) Negative Normal Comprehens [facility]; [facility] Work Phone: Comment on above: Test(s) 349349-STI-N ; 729676-NIK-I; 934003-Ynvofxtfilzed; 521777-Ydfqarqngyn, Total; 622293-RNM-Z (Total); 101165-Jzlwr LDL-P; 711681-JLE Size; 907960-BZ-RQ Scorewas developed and its performance characteristics determinedby [employer]. It has not been cleared or approved by the Foodand Drug Administration.PATIENT WAS FASTINGPERFORMED BY: [employer] [address] [id number] BY: [employer]70 [facility] [id number] Specific gravity (U) [Rel density] 1.021 1 Normal 1.005-1.03 0 [facility] Work Phone: Comment on above: Test(s) 827638-PFN-W ; 699422-PDT-G; 478804-Vpqlrqogsfnig; 909586-Lubkiglmljz, Total; 485090-DOH-B (Total); 847991-Husmf LDL-P; 869726-PWI Size; 920255-AC-BU Scorewas developed and its performance characteristics determinedby [employer]. It has not been cleared or approved by the Foodand Drug Administration.PATIENT WAS FASTINGPERFORMED BY: [employer] [address] [id number] BY: [employer]70 [facility]uraiUNC [facility] [id number] Urobilinogen (U) [Mass/Vol] 1.0 mg/dL Normal 0.2-1.0 [facility]; [facility] Internal Medicine Work Phone: Comment on above: Test(s) 485330-RDN-P ; 230770-QLK-R; 247438-Agqpdqtkqlgic; 247475-Imefexbkjep, Total; 025667-NMR-M (Total); 140154-Bfngq LDL-P; 841263-XTS Size; 971750-YM-RF Scorewas developed and its performance characteristics determinedby [employer]. It has not been cleared or approved by the Foodand Drug Administration.PATIENT WAS FASTINGPERFORMED BY: [employer] [address] [id number] BY: Livio [employer]6370 [facility] [id number] Urobilinogen Test strip (U) [Mass/Vol] 1.0 mg/dL Normal 0.2-1.0 [facility] Work Phone: Comment on above: Test(s) 911552-NTW-T ; 519514-HTG-J; 329840-Xyfufutwlmrmc; 352291-Wvafepcqrhh, Total; 747672-VBX-M (Total); 808495-Zptmq LDL-P; 113556-PTN Size; 181887-CU-ZX Scorewas developed and its performance characteristics determinedby [facility]. It has not been cleared or approved by the Foodand Drug Administration.PATIENT WAS FASTINGPERFORMED BY: [facility]1447 [facility] [id number] BY: [facility]6370 [facility]in [place] [id number] METABOLIC PANEL, BASIC (8004 8)Ordered By: Flight Reservations Manager on 11-22-2019 Calcium [Mass/Vol] 10.0 mg/dL Normal 8.7-10.3 [facility] Internal Medicine Work Phone: Comment on above: PATIENT WAS FASTINGP ERFORMED BY: [facility]6370 [facility] [id number] Chloride [Moles/Vol] 99 mmol/L Normal 96-106 [facility] Work Phone: Comment on above: PATIENT WAS FASTINGP ERFORMED BY: [facility]6370 [facility]in [place] [id number] CO2 [Moles/Vol] 25 mmol/L Normal 20-29 [facility] Internal Medicine Work Phone: Comment on above: PATIENT WAS FASTINGP ERFORMED BY: [facility]6370 [facility] [id number] Creatinine [Mass/Vol] 0.76 mg/dL Normal 0.57-1.00 [facility] Internal Medicine Work Phone: Comment on above: PATIENT WAS FASTINGP ERFORMED BY: [facility]6370 [facility]in [place] [id number] GFR/1.73 sq M predicted among blacks CKD-EPI (S/P/Bld) [Vol rate/Area] 93 mL/min/1.73 Normal [facility] Work Phone: Comment on above: PATIENT WAS FASTINGP ERFORMED BY: [facility]6[address] [facility]Community Healthin [place] [id number] GFR/1.73 sq M predicted among non-blacks CKD-EPI (S/P/Bld) [Vol rate/Area] 80 mL/min/1.73 Normal [facility] Internal Medicine Work Phone: Comment on above: PATIENT WAS FASTINGP ERFORMED BY: [facility] Kfjdrw2821 [facility]in [place] [id number] Glucose [Mass/Vol] 101 mg/dL Abnormal 65-99 [facility] Internal Medicine Work Phone: Comment on above: PATIENT WAS FASTINGP ERFORMED BY: CB [facility] Thdkvi4324 [facility]in [place] [id number] Potassium [Moles/Vol] 4.2 mmol/L Normal 3.5-5.2 [facility] Internal Medicine Work Phone: Comment on above: PATIENT WAS FASTINGP ERFORMED BY: [facility] Wvtydy5300 [facility]in [place] [id number] Sodium [Moles/Vol] 138 mmol/L Normal 134-144 [facility] Internal Medicine Work Phone: Comment on above: PATIENT WAS FASTINGP ERFORMED BY: [facility] Uugtfy3590 [facility]in [place] [id number] Urea nitrogen [Mass/Vol] 16 mg/dL Normal 8-27 [facility] Internal Medicine Work Phone: Comment on above: PATIENT WAS FASTINGP ERFORMED BY: [facility] Qbijxo0799 [facility] [place] [id number] Urea nitrogen/Creatinine [Mass ratio] 21 mg/mg Normal 12-28 [facility] Internal Medicine Work Phone: Comment on above: PATIENT WAS FASTINGP ERFORMED BY: [facility] Jpdhjm0761 [facility]in [place] [id number] FOOT COMPLETE [facility] 0 FOOT COMPLETE [address] [address] Patient: JAKY SPENCER Phone#: : 1950 Age: 68 Gender: F Pt. Type: Out Account: [id number] Location: Ordering: JOHAN DIAZ Exam Date: 10/06/2019/11:15 Family Phys: Charge Code: [id number] Physician: Sequoyah Order #: [id number] DLP Dose#: PROCEDURE: X-RAY FOOT LT COMPLETE MIN 3 VIEWS COMPARISON: None. INDICATIONS: Pain in metatarsals. FINDINGS: BONES: No fracture dislocation. There is a calcaneal spur measuring 0.6 cm. There is a prominent posterior process of the talus. SOFT TISSUES: There is soft tissue swelling of the distal foot. EFFUSION: None visible. OTHER: Negative. CONCLUSION: 1. Calcaneal spur. Dictated by: Sunday Kitchen MD on 10/06/2019 at 12:01 Approved by: Sunday Kitchen MD on 10/06/2019 at 12:01 Normal [facility] CALCIFIDIOL (59872) VIT D 25 Ordered By: Flight Reservations Manager on 05-17-2019 25-Hydroxyvitamin D2+25-Hydroxyvitamin D3 [Mass/Vol] 78.7 ng/mL Normal 30.0-100.0 [facility] Work Phone: Comment on above: Vitamin D deficiency has been defined by the [place] of[place] and an Endocrine Society practice guideline as alevel of serum 25-OH vitamin D less than 20 ng/mL (1,2).The Endocrine Society went on to further define vitamin Dinsufficiency as a level between 21 and 29 ng/mL (2).1. IOM ([place] [employer]). 2010. Dietary reference intakes for calcium and D. [place]: The National Academies Press.2. Jadon MF, Abimael NC, Susan BERNAL, et al. Evaluation, treatment, and prevention of vitamin D deficiency: an Endocrine Society clinical practice guideline. JCEM. 2010; 96(7):1911-30. PATIENT NOT FASTINGP ERFORMED BY: LabCoBacharach Institute for RehabilitationAexbgs4830 [facility] [id number] CBC W/AUTO DIFF WBC (02978)O rdered By: Flight Reservations Manager on 05-17-2019 Basophils (Bld) [#/Vol] 0.0 {x10E3/uL} Normal 0.0-0.2 [facility] Work Phone: Comment on above: PATIENT NOT FASTINGP ERFORMED BY: CB [facility] Txhvgu5332 [address] RoadDublin [place] [id number] Basophils (Bld) [#/Vol] 0.0 10*3/uL Normal 0.0-0.2 [facility]; [facility] Work Phone: Comment on above: PATIENT NOT FASTINGP ERFORMED BY: CB [facility] Rtswnj1596 [address] RoadDublin [place] [id number] Basophils/100 WBC (Bld) 0 % Normal C omprehensive Internal Medicine Work Phone: Comment on above: PATIENT NOT FASTINGP ERFORMED BY: CB [facility] Gabbda6407 [address] RoadDublin [place] [id number] Eosinophils (Bld) [#/Vol] 0.4 {x10E3/uL} Normal 0.0-0.4 [facility] Work Phone: Comment on above: PATIENT NOT FASTINGP ERFORMED BY: CB [facility] Sifsnr3113 [address] RoadDublin [place] [id number] Eosinophils (Bld) [#/Vol] 0.4 10*3/uL Normal 0.0-0.4 [facility]; [facility] Work Phone: Comment on above: PATIENT NOT FASTINGP ERFORMED BY: CB [facility] Bckniv2596 [address] RoadDublin [place] [id number] Eosinophils/100 WBC (Bld) 6 % Normal [facility] Work Phone: Comment on above: PATIENT NOT FASTINGP ERFORMED BY: CB [facility] Gpydsm5753 [address] RoadDublin [place] [id number] Erythrocyte distribution width (RBC) [Ratio] 13.1 % Normal 12.3-15.4 [facility] Work Phone: Comment on above: PATIENT NOT FASTINGP ERFORMED BY: CB [facility] Ivpjjt6724 [address] RoadDublin [place] [id number] Hematocrit (Bld) [Volume fraction] 40.8 % Normal 34.0-46.6 [facility] Work Phone: Comment on above: PATIENT NOT FASTINGP ERFORMED BY: RUTH [facility] Zejnyp8447 [address] RoadDublin [place] [id number] Hemoglobin (Bld) [Mass/Vol] 13.5 g/dL Normal 11.1-15.9 [facility] Work Phone: Comment on above: PATIENT NOT FASTINGP ERFORMED BY: [facility] Ihloil6506 [address] RoadDublin [place] [id number] Immature granulocytes (Bld) [#/Vol] 0.0 {x10E3/uL} Normal 0.0-0.1 [facility] Work Phone: Comment on above: PATIENT NOT FASTINGP ERFORMED BY: [facility] Spahwa8616 [address] RoadDublin [place] [id number] Immature granulocytes (Bld) [#/Vol] 0.0 10*3/uL Normal 0.0-0.1 [facility]; [facility] Work Phone: Comment on above: PATIENT NOT FASTINGP ERFORMED BY: [facility] Fvnbel8864 [address] RoadDublin [place] [id number] Immature granulocytes/100 WBC (Bld) 0 % Normal [facility] Work Phone: Comment on above: PATIENT NOT FASTINGP ERFORMED BY: Jonathan Stoddardlin6[address]Dublin [place] [id number] Lymphocytes (Bld) [#/Vol] 2.3 {x10E3/uL} Normal 0.7-3.1 [facility] Work Phone: Comment on above: PATIENT NOT FASTINGP ERFORMED BY: [facility] Fkphco4338 [address] RoadDublin [place] [id number] Lymphocytes (Bld) [#/Vol] 2.3 10*3/uL Normal 0.7-3.1 [facility]; [facility] Work Phone: Comment on above: PATIENT NOT FASTINGP ERFORMED BY: [facility] Vrddwm8349 [address] RoadDublin [place] [id number] Lymphocytes/100 WBC (Bld) 32 % Normal [facility] Work Phone: Comment on above: PATIENT NOT FASTINGP ERFORMED BY: CB [facility] Ckdwcs2764 [address] RoadDublin [place] [id number] MCH (RBC) [Entitic mass] 28.2 pg Normal 26.6-33.0 [facility] Internal Medicine Work Phone: Comment on above: PATIENT NOT FASTINGP ERFORMED BY: CB [facility] Dcwuas3933 [address] RoadDublin [place] [id number] MCHC (RBC) [Mass/Vol] 33.1 g/dL Normal 31.5-35.7 [facility] Work Phone: Comment on above: PATIENT NOT FASTINGP ERFORMED BY: CB [facility] Kjdgim2728 [address] RoadDublin [place] [id number] MCV (RBC) [Entitic vol] 85 fL Normal 79-[address] [facility] Internal Medicine Work Phone: Comment on above: PATIENT NOT FASTINGP ERFORMED BY: CB [facility] Htrhlh0753 [address] RoadDublin [place] [id number] Monocytes (Bld) [#/Vol] 0.6 {x10E3/uL} Normal 0.1-0.9 [facility] Internal Medicine Work Phone: Comment on above: PATIENT NOT FASTINGP ERFORMED BY: CB [facility] Ibtwez9372 [address] RoadDublin [place] [id number] Monocytes (Bld) [#/Vol] 0.6 10*3/uL Normal 0.1-0.9 [facility]; [facility] Work Phone: Comment on above: PATIENT NOT FASTINGP ERFORMED BY: CB [facility] Psctjj1273 [address] RoadDublin [place] [id number] Monocytes/100 WBC (Bld) 9 % Normal C [facility] centerensive Internal Medicine Work Phone: Comment on above: PATIENT NOT FASTINGP ERFORMED BY: CB [facility] Natacl7070 [address] RoadDublin [place] [id number] Neutrophils (Bld) [#/Vol] 3.8 {x10E3/uL} Normal 1.4-7.0 [facility] Work Phone: Comment on above: PATIENT NOT FASTINGP ERFORMED BY: CB [facility] Gksaao4313 [address] RoadDublin [place] [id number] Neutrophils (Bld) [#/Vol] 3.8 10*3/uL Normal 1.4-7.0 [facility]; [facility] Work Phone: Comment on above: PATIENT NOT FASTINGP ERFORMED BY: CB [facility] Lmfuwm7322 [address] RoadDublin [place] [id number] Neutrophils/100 WBC (Bld) 53 % Normal [facility] Work Phone: Comment on above: PATIENT NOT FASTINGP ERFORMED BY: CB [facility] Cnvrav7324 [address]Dublin [place] [id number] Platelets (Bld) [#/Vol] 330 {x10E3/uL} Normal 150-450 [facility] Work Phone: Comment on above: PATIENT NOT FASTINGP ERFORMED BY: CB [facility] Beyalp6067 [address] RoadDublin [place] [id number] Platelets (Bld) [#/Vol] 330 10*3/uL Normal 150-450 [facility]; [facility] Work Phone: Comment on above: PATIENT NOT FASTINGP ERFORMED BY: CB [facility] Sbxbtr8926 [address] RoadDublin [place] [id number] RBC (Bld) [#/Vol] 4.78 {x10E6/uL} Normal 3.77-5.28 [facility] Internal Medicine Work Phone: Comment on above: PATIENT NOT FASTINGP ERFORMED BY: CB [facility] Uukqkl3955 [address] RoadDublin [place] [id number] RBC (Bld) [#/Vol] 4.78 10*6/uL Normal 3.77-5.28 [facility] Internal Medicine; [facility] Work Phone: Comment on above: PATIENT NOT FASTINGP ERFORMED BY: CB [facility] Tkigcq9419 [address] RoadDublin [place] [id number] WBC (Bld) [#/Vol] 7.1 {x10E3/uL} Normal 3.4-10.8 [facility]ensive [facility] Work Phone: Comment on above: PATIENT NOT FASTINGP ERFORMED BY: RUTH Padron6370 [address]blin [place] [id number] WBC (Bld) [#/Vol] 7.1 10*3/uL Normal 3.4-10.8 [facility] Internal Medicine; [facility] Work Phone: Comment on above: PATIENT NOT FASTINGP ERFORMED BY: RUTH Jonathan Stoddardlin6370 [facility]in [place] [id number] METABOLIC PANEL, COMPREHENSI MIREILLE (48214)Ordered By: Flight Reservations Manager on 05-17-2019 Albumin [Mass/Vol] 4.3 g/dL Normal 3.6-4.8 [facility] Internal Medicine Work Phone: Comment on above: PATIENT NOT FASTINGP ERFORMED BY: RUTH Jonathan Padron6370 [facility] [id number] Albumin/Globulin [Mass ratio] 2.0 {ratio} Normal 1.2-2.2 [facility] Internal Medicine Work Phone: Comment on above: PATIENT NOT FASTINGP ERFORMED BY: RUTH Jonathan Stoddardlin6370 [facility]in [place] [id number] ALP [Catalytic activity/Vol] 93 [iU]/L Normal 39-117 [facility] Internal Medicine Work Phone: Comment on above: PATIENT NOT FASTINGP ERFORMED BY: RUTH Jonathan Stoddardlin6370 [facility]in [place] [id number] ALP [Catalytic activity/Vol] 93 U/L Normal 39-117 [facility]; [facility] Work Phone: Comment on above: PATIENT NOT FASTINGP ERFORMED BY: RUTH Jonathan Stoddardlin6370 [address] [facility] Centerblin [place] [id number] ALT [Catalytic activity/Vol] 29 [iU]/L Normal 0-32 [facility] Work Phone: Comment on above: PATIENT NOT FASTINGP ERFORMED BY: CB [facility] Scyikk8806 [address] RoadDublin [place] [id number] ALT [Catalytic activity/Vol] 29 U/L Normal 0-32 [facility]; [facility] Work Phone: Comment on above: PATIENT NOT FASTINGP ERFORMED BY: CB [facility] Fuvmhv1370 [address] RoadDublin [place] [id number] AST [Catalytic activity/Vol] 25 [iU]/L Normal 0-40 [facility] Work Phone: Comment on above: PATIENT NOT FASTINGP ERFORMED BY: CB [facility] Opffuz1620 [address] RoadDublin [place] [id number] AST [Catalytic activity/Vol] 25 U/L Normal 0-40 [facility]; [facility] Work Phone: Comment on above: PATIENT NOT FASTINGP ERFORMED BY: RUTH [facility] Dojcpf9509 [address] RoadDublin [place] [id number] Bilirubin [Mass/Vol] 0.4 mg/dL Normal 0.0-1.[address] [facility]ensive [facility] Work Phone: Comment on above: PATIENT NOT FASTINGP ERFORMED BY: [facility] Jwhgli1289 [address] RoadDublin [place] [id number] Calcium [Mass/Vol] 9.5 mg/dL Normal 8.7-10.3 [facility] Internal Medicine Work Phone: Comment on above: PATIENT NOT FASTINGP ERFORMED BY: CB [facility] Hraiki5811 [address] RoadDublin [place] [id number] Chloride [Moles/Vol] 104 mmol/L Normal 96-[address] [facility]ensive [facility] Work Phone: Comment on above: PATIENT NOT FASTINGP ERFORMED BY: CB [facility] Zedrhp2066 [address] RoadDublin [place] [id number] CO2 [Moles/Vol] 23 mmol/L Normal 20-29 [facility] Internal Medicine Work Phone: Comment on above: PATIENT NOT FASTINGP ERFORMED BY: CB [facility] Rduepw6252 [address] RoadDublin [place] [id number] Creatinine [Mass/Vol] 0.68 mg/dL Normal 0.57-1.00 [facility] prehensive Internal Medicine Work Phone: Comment on above: PATIENT NOT FASTINGP ERFORMED BY: RUTH [facility] Pybwby1707 [address] RoadDublin [place] [id number] GFR/1.73 sq M predicted among blacks CKD-EPI (S/P/Bld) [Vol rate/Area] 103 mL/min/1.73 Normal [facility] Work Phone: Comment on above: PATIENT NOT FASTINGP ERFORMED BY: CB [facility] Jqhsbw1281 [address] RoadDublin [place] [id number] GFR/1.73 sq M predicted among non-blacks CKD-EPI (S/P/Bld) [Vol rate/Area] 90 mL/min/1.73 Normal [facility] Work Phone: Comment on above: PATIENT NOT FASTINGP ERFORMED BY: RUTH [facility] Dnqsrv4740 [facility] [id number] Globulin (S) [Mass/Vol] 2.2 g/dL Normal 1.5-4.5 C [facility] centerensive Internal Medicine Work Phone: Comment on above: PATIENT NOT FASTINGP ERFORMED BY: CB [facility] Xtbrvd2595 [facility]in [place] [id number] Glucose [Mass/Vol] 89 mg/dL Normal 65-99 [facility] Internal Medicine Work Phone: Comment on above: PATIENT NOT FASTINGP ERFORMED BY: CB [facility] Iojhft8386 [facility] [id number] Potassium [Moles/Vol] 4.4 mmol/L Normal 3.5-5.2 [facility]ensive [facility] Work Phone: Comment on above: PATIENT NOT FASTINGP ERFORMED BY: CB [facility] Nhmpvp6207 [facility] [id number] Protein [Mass/Vol] 6.5 g/dL Normal 6.0-8.5 [facility] Internal Medicine Work Phone: Comment on above: PATIENT NOT FASTINGP ERFORMED BY: RUTH [facility] Frbdhg6507 [address] RoadDublin [place] [id number] Sodium [Moles/Vol] 141 mmol/L Normal 134-144 [facility] Internal Medicine Work Phone: Comment on above: PATIENT NOT FASTINGP ERFORMED BY: RUTH [facility] Okztlt5436 [address] RoadDublin [place] [id number] Urea nitrogen [Mass/Vol] 9 mg/dL Normal 8- [facility] Work Phone: Comment on above: PATIENT NOT FASTINGP ERFORMED BY: RUTH [facility] Mriako5594 [address] RoadDublin [place] [id number] Urea nitrogen/Creatinine [Mass ratio] 13 mg/mg Normal 12- [facility] Work Phone: Comment on above: PATIENT NOT FASTINGP ERFORMED BY: RUTH [facility] Oqbzow4088 [address] RoadDublin [place] [id number] MICROALBUMINOrdered By: Syst em Electroencephalographic Technologist on 05-17-2019 Albumin DL <= 20 mg/L (U) [Mass/Vol] 7.6 ug/mL Normal [facility] Work Phone: Comment on above: PATIENT NOT FASTINGP ERFORMED BY: RUTH [facility] Qridcr6347 [address] RoadD[address] [place] [id number] Albumin/Creatinine (U) [Mass ratio] 4.2 {mg/g_creat} Normal 0.0-30.0 [facility] Work Phone: Comment on above: Normal: 0.0 - 30.0 A lbuminuria: 31.0 - 300.0 Clinical albuminuria: >300.0 PATIENT NOT FASTINGP ERFORMED BY: RUTH [facility] Bdjwrx5827 [address] RoadDublin [place] [id number] Creatinine (U) [Mass/Vol] 179.7 mg/dL Normal [facility] Work Phone: Comment on above: PATIENT NOT FASTINGP ERFORMED BY: RUTH [facility] Oypfbx1801 [address] RoadD[address] [place] [id number] T3, FREE (TRIDOTHYRONINE) (1 4490)Ordered By: Flight Reservations Manager on 05-17-2019 Free T3 [Mass/Vol] 3.8 pg/mL Normal 2.0-4.4 [facility] Internal Medicine Work Phone: Comment on above: PATIENT NOT FASTINGP ERFORMED BY: RUTH [facility] Vnozns5117 [address] RoadD[address] [place] [id number] T4, FREE (THYROXINE) ([id number]) Ordered By: Flight Reservations Manager on 05-17-2019 Free T4 [Mass/Vol] 1.58 ng/dL Normal 0.82-1.77 [facility] Internal Medicine Work Phone: Comment on above: PATIENT NOT FASTINGP ERFORMED BY: RUTH [facility] Ujtpjd1477 [address] RoadDublin [place] [id number] TSH ([id number])Ordered By: GardenStoryshahram m Electroencephalographic Technologist on 05-17-2019 TSH Qn 0.607 {uIU/mL} Normal 0.450-4.50 0 [facility] Work Phone: Comment on above: PATIENT NOT FASTINGP ERFORMED BY: RUTH [facility] Bkiqaq8664 [address] RoadDublin [place] [id number] URINALYSIS, W/ MICRO ([id number]) Ordered By: Flight Reservations Manager on 05-17-2019 Appearance (U) Clear Normal Comprehens [facility]olph Internal Medicine Work Phone: Comment on above: PATIENT NOT FASTINGP ERFORMED BY: RUTH [facility] Pfqwyn4838 [address] RoadDublin [place] [id number] Bilirubin Ql (U) Negative Normal Comprehe nsive Internal Medicine Work Phone: Comment on above: PATIENT NOT FASTINGP ERFORMED BY: CB [facility] Qjhdey9388 [address] RoadDublin [place] [id number] Bilirubin Ql (U) Negative Normal Comprehe nsive Internal Medicine; [facility] Work Phone: Comment on above: PATIENT NOT FASTINGP ERFORMED BY: RUTH [facility] Igsrvg0920 [address] RoadD[address] [place] [id number] Color (U) Yellow Normal [facility] Work Phone: Comment on above: PATIENT NOT FASTINGP ERFORMED BY: RUTH [facility] Ekvhet8618 [address] RoadD[address] [place] [id number] Glucose Ql (U) Negative Normal Comprehens [facility]olph Internal Medicine Work Phone: Comment on above: PATIENT NOT FASTINGP ERFORMED BY: RUTH Jonathan Dopuos2540 [address] [place] [id number] Glucose Ql (U) Negative Normal Comprehens [facility]olph Internal Medicine; [facility] Work Phone: Comment on above: PATIENT NOT FASTINGP ERFORMED BY: RUTH Jonathan Oiwice1751 [address] RoadD[address] [place] [id number] Hemoglobin Ql (U) Negative Normal Compreh ensive Internal Medicine Work Phone: Comment on above: PATIENT NOT FASTINGP ERFORMED BY: RUTH Mackenziehu StoddardAozgbm4395 [address] RoadDublin [place] [id number] Hemoglobin Ql (U) Negative Normal Compreh ensive Internal Medicine; [facility] Work Phone: Comment on above: PATIENT NOT FASTINGP ERFORMED BY: RUTH Mackenziehu StoddardNptada9365 [address] RoadDublin [place] [id number] Ketones Ql (U) Negative Normal Comprehens rudolph Internal Medicine Work Phone: Comment on above: PATIENT NOT FASTINGP ERFORMED BY: RUTH Mackenziehu StoddardLtxbtb6002 Dean RoadDublin [place] [id number] Ketones Ql (U) Negative Normal [facility]; [facility] Work Phone: Comment on above: PATIENT NOT FASTINGP ERFORMED BY: RUTH Mackenziehu StoddardFvcqey3066 Dean RoadDublin [place] [id number] Leukocyte esterase Test strip Ql (U) Negative Normal [facility] Work Phone: Comment on above: PATIENT NOT FASTINGP ERFORMED BY: RUTH Mackenziehu StoddardUqofpn9566 Dean RoadDublin [place] [id number] Leukocyte esterase Test strip Ql (U) Negative Normal [facility]; [facility] Work Phone: Comment on above: PATIENT NOT FASTINGP ERFORMED BY: RUTH Mackenziehu StoddardPanadn6685 Dean RoadDublin [place] [id number] Microscopic observation LM Nom (Urine sed) See below: Normal [facility] Work Phone: Comment on above: Microscopic was al cated and was performed. PATIENT NOT FASTINGP ERFORMED BY: RUTH Stoddardlin6370 Dean RoadDublin [place] [id number] Microscopic observation LM Nom (Urine sed) MICRON Normal [facility] Work Phone: Comment on above: Microscopic follows if indicated. PATIENT NOT FASTINGP ERFORMED BY: RUTH Mackenzie Lvgxau5286 Dean Roadblin [place] [id number] Nitrite Ql (U) Negative Normal [facility] Work Phone: Comment on above: PATIENT NOT FASTINGP ERFORMED BY: RUTH Jonathan Stoddardlin6370 Dean RoadCommunity Healthin [place] [id number] Nitrite Ql (U) Negative Normal [facility]; [facility] Work Phone: Comment on above: PATIENT NOT FASTINGP ERFORMED BY: RUTH Mackenzie Lmmwcd4891 [address] [facility]in [place] [id number] pH (U) 5.5 [pH] Normal 5.0-7.5 [facility] Work Phone: Comment on above: PATIENT NOT FASTINGP ERFORMED BY: RUTH Jonathan Jvltau4554 [address] [facility]in [place] [id number] Protein Ql (U) Negative Normal [facility] Work Phone: Comment on above: PATIENT NOT FASTINGP ERFORMED BY: RUTH Mann Nbceog0113 [address] [facility]in [place] [id number] Protein Ql (U) Negative Normal [facility]; [facility] Work Phone: Comment on above: PATIENT NOT FASTINGP ERFORMED BY: RUTH Mackenzie Axaurc2535 [address] [facility] Centerblin [place] [id number] Specific gravity (U) [Rel density] 1.021 1 Normal 1.005-1.03 0 [facility] Work Phone: Comment on above: PATIENT NOT FASTINGP ERFORMED BY: CB [facility] Pumayw1026 Dean RoadDublin [place] [id number] Urobilinogen (U) [Mass/Vol] 0.2 mg/dL Normal 0.2-1.0 [facility]; [facility] Work Phone: Comment on above: PATIENT NOT FASTINGP ERFORMED BY: CB [facility] Stxcui2807 Dean RoadDublin [place] [id number] Urobilinogen Test strip (U) [Mass/Vol] 0.2 mg/dL Normal 0.2-1.0 [facility] Work Phone: Comment on above: PATIENT NOT FASTINGP ERFORMED BY: CB [facility] Goghaq8834 Dean Roadblin [place] [id number] Sputum CultureOrdered By: Sy stem Electroencephalographic Technologist on 06-14-2018 Bacteria identified Cx Nom (Sput) Final report Normal [facility] Work Phone: Comment on above: PATIENT NOT FASTINGP ERFORMED BY: CB [facility] Grdzrx7826 Dean RoadDublin [place] [id number] Bacteria identified Cx Nom (Sput) RRF Normal [facility] Work Phone: Comment on above: Routine respiratory tomas PATIENT NOT FASTINGP ERFORMED BY: CB [facility] Mywxjp3889 [address] [facility] HospitalD[facility] [place] [id number] Sputum Culture ([id number])Ordere d By: Flight Reservations Manager on 06-14-2018 Epithelial cells.squamous LM Ql (Sput) Few Normal [facility] Work Phone: Comment on above: PATIENT NOT FASTINGP ERFORMED BY: CB [facility] Jupsso8726 Dean Roadblin [place] [id number] Information: SRC:SP Microscopic observation Gram stain Nom (Sput) GSACC Normal [facility] Work Phone: Comment on above: This specimen is of good quality and is acceptable for routinebacterial culture. PATIENT NOT FASTINGP ERFORMED BY: CB [facility] Fsnnpd9613 Dean RoadDublin [place] [id number] Information: SRC:SP Microscopic observation Gram stain Nom (Sput) PCF Normal [facility] Work Phone: Comment on above: Few gram positive co cciFew gram variable coccobacilli PATIENT NOT FASTINGP ERFORMED BY: RUTH [facility] Iadghn9742 Dean Roadblin [place] [id number] Information: SRC:SP WBC LM Ql (Sput) None seen Normal Comprehe ns[facility] Work Phone: Comment on above: PATIENT NOT FASTINGP ERFORMED BY: RUTH [facility] Mvsebo5438 Dean Roadblin [place] [id number] Information: SRC:SP CALCIFIDIOL (20733) VIT D 25 Ordered By: Flight Reservations Manager on 05-19-2018 25-Hydroxyvitamin D2+25-Hydroxyvitamin D3 mass conc 68.5 ng/mL Normal 30.0-100.0 [facility] Work Phone: Comment on above: Vitamin D deficiency has been defined by the [place] [facility] Hospitalcine and an Endocrine Society practice guideline as alevel of serum 25-OH vitamin D less than 20 ng/mL (1,2).The Endocrine Society went on to further define vitamin Dinsufficiency as a level between 21 and 29 ng/mL (2).1. IOM ([place] of Medicine). 2010. Dietary reference intakes for calcium and D. [place]: The National Academies Press.2. Jadon MF, Abimael CHAWLA, Susan BERNAL, et al. Evaluation, treatment, and prevention of vitamin D deficiency: an Endocrine Society clinical practice guideline. JCEM. 2010; 96(7):1911-30. PATIENT NOT FASTINGP ERFORMED BY: [facility] Htowhh7051 [address] [facility]in [place] [id number] METABOLIC PANEL, COMPREHENSI VE (39244)Ordered By: Flight Reservations Manager on 05-19-2018 Albumin mass conc 4.2 g/dL Normal 3.6-4.8 [facility] Work Phone: Comment on above: PATIENT NOT FASTINGP ERFORMED BY: CB [facility] Osknli3678 Dean RoadDublin [place] [id number] Albumin/Globulin mass ratio 1.8 {ratio} Normal 1.2-2.2 [facility] Work Phone: Comment on above: PATIENT NOT FASTINGP ERFORMED BY: RUTH [facility] Rcjfup8285 Dean RoadDublin [place] [id number] ALP [Catalytic activity/Vol] 85 U/L Normal 39-117 [facility]; [facility] Work Phone: Comment on above: PATIENT NOT FASTINGP ERFORMED BY: CB [facility] Pbqwyg6838 Dean RoadDublin [place] [id number] ALP enzyme act/vol 85 [iU]/L Normal 39-117 [facility] Work Phone: Comment on above: PATIENT NOT FASTINGP ERFORMED BY: RUTH [facility] Nmycdh0394 Dean RoadDublin [place] [id number] ALT [Catalytic activity/Vol] 21 U/L Normal 0-32 [facility]; [facility] Work Phone: Comment on above: PATIENT NOT FASTINGP ERFORMED BY: RUTH [facility] Baogfx1707 [address] RoadDublin [place] [id number] ALT enzyme act/vol 21 [iU]/L Normal 0-32 [facility] Work Phone: Comment on above: PATIENT NOT FASTINGP ERFORMED BY: RUTH [facility] Kbkaxy0800 [address] RoadDublin [place] [id number] AST [Catalytic activity/Vol] 22 U/L Normal 0-40 [facility]; [facility] Work Phone: Comment on above: PATIENT NOT FASTINGP ERFORMED BY: RUTH [facility] Fnklir4265 [address] RoadDublin [place] [id number] AST enzyme act/vol 22 [iU]/L Normal 0-40 [facility] Work Phone: Comment on above: PATIENT NOT FASTINGP ERFORMED BY: RUTH [facility] Rdeass3251 [address] RoadDublin [place] [id number] Bilirubin mass conc 0.4 mg/dL Normal 0.0-1.2 [facility] Work Phone: Comment on above: PATIENT NOT FASTINGP ERFORMED BY: CB [facility] Qecwyh6087 Dean RoadDublin [place] [id number] Calcium mass conc 9.8 mg/dL Normal 8.7-10.3 [facility]pre[facility] Work Phone: Comment on above: PATIENT NOT FASTINGP ERFORMED BY: CB [facility] Baqchi5133 [address] RoadDublin [place] [id number] Chloride molar conc 104 mmol/L Normal 96-106 Compr ehens[facility] Work Phone: Comment on above: PATIENT NOT FASTINGP ERFORMED BY: CB [facility] Oopjes0436 [address] Roadblin [place] [id number] CO2 molar conc 24 mmol/L Normal 20-29 [facility] Work Phone: Comment on above: PATIENT NOT FASTINGP ERFORMED BY: RUTH [facility] Heldda6818 Dean RoadCommunity Healthin [place] [id number] Creatinine mass conc 0.66 mg/dL Normal 0.57-1.00 Comp rehensive [facility] Work Phone: Comment on above: PATIENT NOT FASTINGP ERFORMED BY: CB [facility] Avtrrh2235 Dean RoadCommunity Healthin [place] [id number] GFR/1.73 sq M predicted among blacks CKD-EPI vol rate/area (S/P/Bld) 105 mL/min/1.73 Normal Comprehe ns[facility] Work Phone: Comment on above: PATIENT NOT FASTINGP ERFORMED BY: CB [facility] Nknnzz0799 Dean RoadCommunity Healthin [place] [id number] GFR/1.73 sq M predicted among non-blacks CKD-EPI vol rate/area (S/P/Bld) 91 mL/min/1.73 Normal [facility] Work Phone: Comment on above: PATIENT NOT FASTINGP ERFORMED BY: CB [facility] Ipsflo6766 [address] Roadblin [place] [id number] Globulin (S) [Mass/Vol] 2.4 g/dL Normal 1.5-4.5 C omprehensive [facility] Work Phone: Comment on above: PATIENT NOT FASTINGP ERFORMED BY: RUTH Stoddardlin6370 [facility] [id number] Globulin Calculated mass conc (S) 2.4 g/dL Normal 1.5-4.5 [facility] Work Phone: Glucose mass conc 64 mg/dL Abnormal 65-99 Compre[facility] Work Phone: Comment on above: PATIENT NOT FASTINGP ERFORMED BY: RUTH Mann Sqbyrm9939 [facility] [id number] Potassium molar conc 4.1 mmol/L Normal 3.5-5.2 Comp rehensive [facility] Work Phone: Comment on above: PATIENT NOT FASTINGP ERFORMED BY: RUTH Stoddardlin6370 [facility] [id number] Protein mass conc 6.6 g/dL Normal 6.0-8.5 Compreh [facility] Work Phone: Comment on above: PATIENT NOT FASTINGP ERFORMED BY: RUTH Stoddardlin6370 [facility] [id number] Sodium molar conc 143 mmol/L Normal 134-144 Compreh ens[facility] Work Phone: Comment on above: PATIENT NOT FASTINGP ERFORMED BY: RUTH Stoddardlin6370 [facility] [id number] Urea nitrogen mass conc 13 mg/dL Normal 8-27 C o[facility] Work Phone: Comment on above: PATIENT NOT FASTINGP ERFORMED BY: RUTH Mann Qbtmoe5697 [facility] [id number] Urea nitrogen/Creatinine mass ratio 20 mg/mg Normal 12-28 [facility] Work Phone: Comment on above: PATIENT NOT FASTINGP ERFORMED BY: RUTH LabPawel Iflaxg1446 [facility] [id number] Microscopic ExaminationOrder ed By: Flight Reservations Manager on 05-19-2018 Bacteria LM.HPF #/area (Urine sed) None seen Normal [facility] Work Phone: Comment on above: PATIENT NOT FASTINGP ERFORMED BY: RUTH [facility] Rwzwvg0186 Dean RoadDublin [place] [id number] Epithelial cells LM.HPF #/area (Urine sed) None seen Normal 0 - 10 [facility] Work Phone: Comment on above: PATIENT NOT FASTINGP ERFORMED BY: RUTH [facility] Jvvuwp1361 [address] RoadDublin [place] [id number] Mucus LM Ql (Urine sed) Present Normal C omprehensive [facility] Work Phone: Mucus Ql (Urine sed) Present Normal Comp rehensive [facility] Medicine Work Phone: Comment on above: PATIENT NOT FASTINGP ERFORMED BY: RUTH [facility] Fpfxds9053 [address] RoadDublin [place] [id number] RBC LM.HPF #/area (Urine sed) None seen Normal 0 - 2 [facility] Work Phone: Comment on above: PATIENT NOT FASTINGP ERFORMED BY: RUTH [facility] Zktypu3741 [address] RoadDublin [place] [id number] WBC LM.HPF #/area (Urine sed) 0-5 Normal 0 - 5 [facility] Work Phone: Comment on above: PATIENT NOT FASTINGP ERFORMED BY: RUTH [facility] Puzwvf2438 [address] RoadDublin [place] [id number] TSH ([id number])Ordered By: Syste m Electroencephalographic Technologist on 05-19-2018 Thyrotropin Qn 3.620 {uIU/mL} Normal 0.450-4.50 0 [facility] Work Phone: Comment on above: PATIENT NOT FASTINGP ERFORMED BY: CB [facility] Bokdet7977 [address] RoadDublin [place] [id number] URINALYSIS, W/ MICRO ([id number]) Ordered By: Flight Reservations Manager on 05-19-2018 Appearance Nom (U) Clear Normal Compre hensive [facility] Work Phone: Comment on above: PATIENT NOT FASTINGP ERFORMED BY: CB [facility] Qnruyr4606 [address] RoadDublin [place] [id number] Bilirubin Ql (U) Negative Normal Comprehe nsive [facility] Work Phone: Comment on above: PATIENT NOT FASTINGP ERFORMED BY: RUTH [facility] Nbxnez8803 [address] RoadDublin [place] [id number] Bilirubin Ql (U) Negative Normal Comprehe ns[facility]; [facility] Work Phone: Comment on above: PATIENT NOT FASTINGP ERFORMED BY: RUTH [facility] Ydkyig1867 [address] RoadDublin [place] [id number] Color Nom (U) Yellow Normal Comprehensi ve Internal Medicine Work Phone: Comment on above: PATIENT NOT FASTINGP ERFORMED BY: RUTH [facility] Ojdifs9950 [address] RoadDublin [place] [id number] Glucose Ql (U) Negative Normal [facility] Work Phone: Comment on above: PATIENT NOT FASTINGP ERFORMED BY: RUTH [facility] Oiujio5865 [address] RoadDublin [place] [id number] Glucose Ql (U) Negative Normal [facility]; [facility] Work Phone: Comment on above: PATIENT NOT FASTINGP ERFORMED BY: RUTH [facility] Nmnkcr9657 [address] RoadDublin [place] [id number] Hemoglobin Ql (U) Negative Normal Compreh ens[facility] Work Phone: Comment on above: PATIENT NOT FASTINGP ERFORMED BY: RUTH [facility] Pdkojj2954 [address] RoadDublin [place] [id number] Hemoglobin Ql (U) Negative Normal Compreh ens[facility]; [facility] Work Phone: Comment on above: PATIENT NOT FASTINGP ERFORMED BY: RUTH [facility] Xbcyhj3374 [address] RoadDublin [place] [id number] Hemoglobin Test strip Ql (U) Negative Normal [facility] Work Phone: Ketones Ql (U) Negative Normal [facility] Work Phone: Comment on above: PATIENT NOT FASTINGP ERFORMED BY: RUTH [facility] Vsakqe6764 [address] RoadDublin [place] [id number] Ketones Ql (U) Negative Normal [facility]; [facility] Work Phone: Comment on above: PATIENT NOT FASTINGP ERFORMED BY: RUTH [facility] Cdzvpw5364 [address] RoadDublin [place] [id number] Leukocyte esterase Test strip Ql (U) Negative Normal [facility] Work Phone: Comment on above: PATIENT NOT FASTINGP ERFORMED BY: RUTH [facility] Ublopq9367 [address] RoadDublin [place] [id number] Leukocyte esterase Test strip Ql (U) Negative Normal [facility]; [facility] Work Phone: Comment on above: PATIENT NOT FASTINGP ERFORMED BY: RUTH LabCohu StoddardAjsvtg8207 [address] RoadDublin [place] [id number] Microscopic observation LM Nom (Urine sed) See below: Normal [facility] Work Phone: Comment on above: Microscopic was al cated and was performed. PATIENT NOT FASTINGP ERFORMED BY: RUTH [facility] Przjtx8993 [address] RoadDublin [place] [id number] Microscopic observation LM Nom (Urine sed) MICRON Normal [facility] Work Phone: Comment on above: Microscopic follows if indicated. PATIENT NOT FASTINGP ERFORMED BY: RUTH Stoddardlin6370 [address] RoadDublin [place] [id number] Nitrite Ql (U) Negative Normal [facility] Work Phone: Comment on above: PATIENT NOT FASTINGP ERFORMED BY: RUTH [facility] Budugt6792 [address] RoadDublin [place] [id number] Nitrite Ql (U) Negative Normal [facility]; [facility] Work Phone: Comment on above: PATIENT NOT FASTINGP ERFORMED BY: RUTH [facility] Zoxbiz2312 [address] RoadDublin [place] [id number] Nitrite Test strip Ql (U) Negative Normal [facility] Work Phone: pH (U) 6.0 [pH] Normal 5.0-7.5 [facility] Work Phone: Comment on above: PATIENT NOT FASTINGP ERFORMED BY: RUTH [facility] Ovhjds1628 [address] RoadDublin [place] [id number] pH Test strip (U) 6.0 [pH] Normal 5.0-7.5 Compreh ensive [facility] Work Phone: Protein Ql (U) Negative Normal [facility] Work Phone: Comment on above: PATIENT NOT FASTINGP ERFORMED BY: CB [facility] Snpyxb2966 [address] RoadDublin [place] [id number] Protein Ql (U) Negative Normal [facility]; [facility] Work Phone: Comment on above: PATIENT NOT FASTINGP ERFORMED BY: CB [facility] Nnzldp5571 [address] RoadDublin [place] [id number] Protein Test strip Ql (U) Negative Normal [facility] Work Phone: Specific gravity Relative Density (U) 1.019 1 Normal 1.005-1.03 0 [facility] Work Phone: Comment on above: PATIENT NOT FASTINGP ERFORMED BY: CB [facility] Ipnqau0973 [address] RoadDublin [place] [id number] Urobilinogen (U) [Mass/Vol] 0.2 mg/dL Normal 0.2-1.0 [facility]; [facility] Work Phone: Comment on above: PATIENT NOT FASTINGP ERFORMED BY: CB [facility] Iydrtz4241 [address] RoadDublin [place] [id number] Urobilinogen Test strip mass conc (U) 0.2 mg/dL Normal 0.2-1.0 [facility] Work Phone: Comment on above: PATIENT NOT FASTINGP ERFORMED BY: CB [facility] Oynvoc3607 [address] RoadDublin [place] [id number] Gastric BiopsyOrdered By: Evan stem Electroencephalographic Technologist on 11-29-2017 Gastric Biopsy See Note Normal [facility] Work Phone: Comment on above: Patient: JAKY SPENCER : 1950 (66/F) Acct Num: [id number] Phys: Madi Borges MD Unit Num: [id number] Loc: EN Specimen: [id number] Received: 11/29/17 - 1143 Spec Type: Gastric [...] is totally submitted in one cassette. / SJ:beba 11/29/17 TC:5 CPT: 05104 HEADER OPERATION: EGD with biopsy PRE-OP DIAGNOSIS: Eosinophilic esophagitis TISSUE SUBMITTED: Gastric polyp biopsy MICROSCOPIC DESCRIPTION Slides are reviewed. MICROSCOPIC DIAGNOSIS Gastric polyp, biopsy: Fundic gland polyp. See comment. SJ:beba 93046 Signed Shabbir Randolph 11/30/17 [facility] Tgdqtepqej0461 [place], [address] CALCIFEDIOL (31165)Ordered B y: Flight Reservations Manager on 11-10-2017 25-Hydroxyvitamin D2+25-Hydroxyvitamin D3 mass conc 171.2 ng/mL Abnormal 30.0-100.0 [facility] Work Phone: Comment on above: Results confirmed on dilution.Vitamin D deficiency has been defined by the [place] of[place] and an Endocrine Society practice guideline as alevel of serum 25-OH vitamin D less than 20 ng/mL (1,2).The Endocrine Society went on to further define vitamin Dinsufficiency as a level between 21 and 29 ng/mL (2).1. IOM ([place] of [employer]). 2010. Dietary reference intakes for calcium and D. [place]: The National Academies Press.2. Jadon MF, Abimael CHAWLA, Susan BERNAL, et al. Evaluation, treatment, and prevention of vitamin D deficiency: an Endocrine Society clinical practice guideline. JCEM. 2010; 96(7):1911-30. PATIENT WAS FASTINGP ERFORMED BY: [facility]6370 [facility] [id number] CBC W/AUTO DIFF WBC (53642)O rdered By: Flight Reservations Manager on 11-10-2017 Basophils (Bld) [#/Vol] 0.0 {x10E3/uL} Normal 0.0-0.2 [facility] Work Phone: Comment on above: PATIENT WAS FASTINGP ERFORMED BY: [address] [id number] Basophils (Bld) [#/Vol] 0.0 10*3/uL Normal 0.0-0.2 [facility]; [facility] Work Phone: Comment on above: PATIENT WAS FASTINGP ERFORMED BY: [address] [id number] Basophils Auto #/vol (Bld) 0.0 {x10E3/uL} Normal 0.0-0.2 [facility] Work Phone: Basophils/100 WBC (Bld) 0 % Normal C omprehensive [facility] Medicine Work Phone: Comment on above: PATIENT WAS FASTINGP ERFORMED BY: [address] [id number] Basophils/100 WBC Auto (Bld) 0 % Normal [facility] Work Phone: Eosinophils (Bld) [#/Vol] 0.4 {x10E3/uL} Normal 0.0-0.4 [facility] Work Phone: Comment on above: PATIENT WAS FASTINGP ERFORMED BY: [place] [id number] [facility] [id number] Eosinophils (Bld) [#/Vol] 0.4 10*3/uL Normal 0.0-0.4 [facility]; [facility] Work Phone: Comment on above: PATIENT WAS FASTINGP ERFORMED BY: [place] 7103670 [facility] [id number] Eosinophils Auto #/vol (Bld) 0.4 {x10E3/uL} Normal 0.0-0.4 [facility] Work Phone: Eosinophils/100 WBC (Bld) 6 % Normal [facility] Work Phone: Comment on above: PATIENT WAS FASTINGP ERFORMED BY: [employer] Einqwu6604 [address] LeapfunderCommunity Healthin [place] [id number] Eosinophils/100 WBC Auto (Bld) 6 % Normal [facility] Work Phone: Erythrocyte distribution width (RBC) [Ratio] 13.8 % Normal 12.3-15.4 [facility] Work Phone: Comment on above: PATIENT WAS FASTINGP ERFORMED BY: Munch a Bunch Afubag2019 Dean [facility]funderUNC [facility] [id number] Erythrocyte distribution width Auto Ratio (RBC) 13.8 % Normal 12.3-15.4 [facility] Work Phone: Hematocrit (Bld) [Volume fraction] 42.2 % Normal 34.0-46.6 [facility] Work Phone: Comment on above: PATIENT WAS FASTINGP ERFORMED BY: [employer] Pyghtx3100 [address] LeapfunderUNC [facility] [id number] Hematocrit Auto Volume Fraction (Bld) 42.2 % Normal 34.0-46.6 [facility] Work Phone: Hemoglobin mass conc (Bld) 14.1 g/dL Normal 11.1-15.9 [facility] Work Phone: Comment on above: PATIENT WAS FASTINGP ERFORMED BY: [employer]unch [employer]unch Tqqflp5597 Dean LeapfunderUNC [facility] [id number] Immature granulocytes #/vol (Bld) 0.0 {x10E3/uL} Normal 0.0-0.1 [facility] Work Phone: Comment on above: PATIENT WAS FASTINGP ERFORMED BY: [employer] Fmeipd6255 [facility] LeapfunderUNC [facility] [id number] Immature granulocytes (Bld) [#/Vol] 0.0 10*3/uL Normal 0.0-0.1 [facility]; [facility] Work Phone: Comment on above: PATIENT WAS FASTINGP ERFORMED BY: [facility]6370 [facility] [id number] Immature granulocytes/100 WBC (Bld) 0 % Normal [facility] Work Phone: Comment on above: PATIENT WAS FASTINGP ERFORMED BY: [place] [id number] [facility] [id number] Lymphocytes (Bld) [#/Vol] 2.1 {x10E3/uL} Normal 0.7-3.1 [facility] Work Phone: Comment on above: PATIENT WAS FASTINGP ERFORMED BY: [place] [id number] [facility] [id number] Lymphocytes (Bld) [#/Vol] 2.1 10*3/uL Normal 0.7-3.1 [facility]; [facility] Work Phone: Comment on above: PATIENT WAS FASTINGP ERFORMED BY: [place] 7103670 [facility] [id number] Lymphocytes Auto #/vol (Bld) 2.1 {x10E3/uL} Normal 0.7-3.1 [facility] Work Phone: Lymphocytes/100 WBC (Bld) 32 % Normal [facility] Work Phone: Comment on above: PATIENT WAS FASTINGP ERFORMED BY: [place] 7103670 [facility] [id number] Lymphocytes/100 WBC Auto (Bld) 32 % Normal [facility] Work Phone: MCH (RBC) [Entitic mass] 27.7 pg Normal 26.6-33.0 [facility] Work Phone: Comment on above: PATIENT WAS FASTINGP ERFORMED BY: LabTammy [place] 8354570 [facility] [id number] MCH Auto Entitic mass (RBC) 27.7 pg Normal 26.6-33.0 [facility] Work Phone: MCHC (RBC) [Mass/Vol] 33.4 g/dL Normal 31.5-35.7 [facility] Work Phone: Comment on above: PATIENT WAS FASTINGP ERFORMED BY: RUTH LabAlyx StoddardLkgnxk0809 [facility] [place] [id number] MCHC Auto mass conc (RBC) 33.4 g/dL Normal 31.5-35.7 [facility] Internal Medicine Work Phone: MCV (RBC) [Entitic vol] 83 fL Normal 79-97 [facility] Work Phone: Comment on above: PATIENT WAS FASTINGP ERFORMED BY: RUTH LabAlyx StoddardPboiuv0209 [facility] [id number] MCV Auto Entitic volume (RBC) 83 fL Normal 79-97 [facility] Internal Medicine Work Phone: Monocytes (Bld) [#/Vol] 0.5 {x10E3/uL} Normal 0.1-0.9 [facility] Internal Medicine Work Phone: Comment on above: PATIENT WAS FASTINGP ERFORMED BY: RUTH Stoddardlin6370 [facility] [id number] Monocytes (Bld) [#/Vol] 0.5 10*3/uL Normal 0.1-0.9 [facility]; [facility] Work Phone: Comment on above: PATIENT WAS FASTINGP ERFORMED BY: RUTH LabCo Cjemdc8919 [facility] [id number] Monocytes Auto #/vol (Bld) 0.5 {x10E3/uL} Normal 0.1-0.9 [facility] Work Phone: Monocytes/100 WBC (Bld) 7 % Normal C [facility] Work Phone: Comment on above: PATIENT WAS FASTINGP ERFORMED BY: RUTH LabCo Rivzrb3392 [facility] [place] [id number] Monocytes/100 WBC Auto (Bld) 7 % Normal [facility] Work Phone: Neutrophils (Bld) [#/Vol] 3.7 {x10E3/uL} Normal 1.4-7.0 [facility] Work Phone: Comment on above: PATIENT WAS FASTINGP ERFORMED BY: RUTH LabPawel Wgvveb9802 [facility] [place] [id number] Neutrophils (Bld) [#/Vol] 3.7 10*3/uL Normal 1.4-7.0 [facility]; [facility] Work Phone: Comment on above: PATIENT WAS FASTINGP ERFORMED BY: [facility] Zheqqk2569 [facility] [place] [id number] Neutrophils Auto #/vol (Bld) 3.7 {x10E3/uL} Normal 1.4-7.0 [facility] Work Phone: Neutrophils/100 WBC (Bld) 55 % Normal [facility] Work Phone: Comment on above: PATIENT WAS FASTINGP ERFORMED BY: [facility] Fjlmbi1439 [facility] [id number] Neutrophils/100 WBC Auto (Bld) 55 % Normal [facility] Work Phone: Platelets (Bld) [#/Vol] 314 {x10E3/uL} Normal 150-379 [facility] Work Phone: Comment on above: PATIENT WAS FASTINGP ERFORMED BY: [facility] Bzwnfs5354 [facility] [id number] Platelets (Bld) [#/Vol] 314 10*3/uL Normal 150-379 [facility]; [facility] Work Phone: Comment on above: PATIENT WAS FASTINGP ERFORMED BY: [facility] Ezpdzl6542 [facility] [place] [id number] Platelets Auto #/vol (Bld) 314 {x10E3/uL} Normal 150-379 [facility] Work Phone: RBC (Bld) [#/Vol] 5.09 {x10E6/uL} Normal 3.77-5.28 [facility] Internal Medicine Work Phone: Comment on above: PATIENT WAS FASTINGP ERFORMED BY: RUTH Mackenziehu Hjplml2163 [facility] [id number] RBC (Bld) [#/Vol] 5.09 10*6/uL Normal 3.77-5.28 [facility]; [facility] Work Phone: Comment on above: PATIENT WAS FASTINGP ERFORMED BY: RUTH MyaAlyx StoddardXevvbk4470 [facility] [id number] RBC Auto #/vol (Bld) 5.09 {x10E6/uL} Normal 3.77-5.28 [facility] Work Phone: WBC (Bld) [#/Vol] 6.7 {x10E3/uL} Normal 3.4-10.8 [facility] Work Phone: Comment on above: PATIENT WAS FASTINGP ERFORMED BY: RUTH Stoddardlin6370 [facility] [id number] WBC (Bld) [#/Vol] 6.7 10*3/uL Normal 3.4-10.8 [facility] Internal Medicine; [facility] Work Phone: Comment on above: PATIENT WAS FASTINGP ERFORMED BY: RUTH MyaAlyx Wmgsvb9530 [facility] [id number] WBC Auto #/vol (Bld) 6.7 {x10E3/uL} Normal 3.4-10.8 [facility] Work Phone: LIPID PANEL ([id number])Ordered B y: Flight Reservations Manager on 11-10-2017 Cholesterol in HDL mass conc 61 mg/dL Normal [facility] Work Phone: Comment on above: PATIENT WAS FASTINGP ERFORMED BY: RUTH LabCohu Tahpfb1729 [facility] [id number] Cholesterol in LDL mass conc 110 mg/dL Abnormal 0-99 [facility] Work Phone: Comment on above: PATIENT WAS FASTINGP ERFORMED BY: RUTH LabAlyx StoddardDjclcj5589 [facility] [id number] Cholesterol in LDL/Cholesterol in HDL mass ratio 1.8 {ratio_units} Normal 0.0-3.2 [facility] Work Phone: Comment on above: LDL/HDL Ratio Men Wo men 1/2 Avg.Risk 1.0 1.5 Avg.Risk 3.6 3.2 2X Avg.Risk 6.2 5.0 3X Avg.Risk 8.0 6.1 PATIENT WAS FASTINGP ERFORMED BY: RUTH LabCohu Kwapqq5577 [place] [id number] Cholesterol in VLDL mass conc 10 mg/dL Normal 5-40 [facility] Work Phone: Comment on above: PATIENT WAS FASTINGP ERFORMED BY: RUTH LabCohu StoddardTazgvx4886 [facility] [place] [id number] Cholesterol mass conc 181 mg/dL Normal 100-199 Com prehensive Internal Medicine Work Phone: Comment on above: PATIENT WAS FASTINGP ERFORMED BY: RUTH LabAlyx StoddardFseenr3142 [facility] [place] [id number] Triglyceride mass conc 48 mg/dL Normal 0-149 Co mprehensive Internal Medicine Work Phone: Comment on above: PATIENT WAS FASTINGP ERFORMED BY: RUTH LabAlyx Uvhqtz8852 [facility] [place] [id number] METABOLIC PANEL, COMPREHENSI VE ([id number])Ordered By: Flight Reservations Manager on 11-10-2017 Albumin mass conc 4.6 g/dL Normal 3.6-4.8 Compreh ensive Internal Medicine Work Phone: Comment on above: PATIENT WAS FASTINGP ERFORMED BY: RUTH LabCohu Szkosm2236 [place] [id number] Albumin/Globulin mass ratio 1.9 {ratio} Normal 1.2-2.2 [facility] Work Phone: Comment on above: PATIENT WAS FASTINGP ERFORMED BY: RUTH LabAlyx StoddardDurjrw0888 [facility] [place] [id number] ALP [Catalytic activity/Vol] 84 U/L Normal 39-117 [facility]; [facility] Work Phone: Comment on above: PATIENT WAS FASTINGP ERFORMED BY: RUTH [facility] Ixpqnp2425 Dean RoadDublin [place] [id number] ALP enzyme act/vol 84 [iU]/L Normal 39-117 [facility] Internal Medicine Work Phone: Comment on above: PATIENT WAS FASTINGP ERFORMED BY: RUTH [facility] Wgdard0656 Dean RoadDublin [place] [id number] ALT [Catalytic activity/Vol] 20 U/L Normal 0-32 [facility]; [facility] Internal Medicine Work Phone: Comment on above: PATIENT WAS FASTINGP ERFORMED BY: RUTH [facility] Vcxshi6581 Dean RoadDublin [place] [id number] ALT enzyme act/vol 20 [iU]/L Normal 0-32 [facility] Internal Medicine Work Phone: Comment on above: PATIENT WAS FASTINGP ERFORMED BY: RUTH [facility] Lsgkrj0603 Dean RoadDublin [place] [id number] AST [Catalytic activity/Vol] 22 U/L Normal 0-40 [facility] Internal Medicine; [facility] Internal Medicine Work Phone: Comment on above: PATIENT WAS FASTINGP ERFORMED BY: RUTH [facility] Xcmyoh3173 [address] RoadDublin [place] [id number] AST enzyme act/vol 22 [iU]/L Normal 0-40 [facility] Internal Medicine Work Phone: Comment on above: PATIENT WAS FASTINGP ERFORMED BY: RUTH [facility] Hqaqvf4859 [address] RoadDublin [place] [id number] Bilirubin mass conc 0.3 mg/dL Normal 0.0-1.2 [facility] Internal Medicine Work Phone: Comment on above: PATIENT WAS FASTINGP ERFORMED BY: RUTH [facility] Yjiqxm4452 Dean RoadDublin [place] [id number] Calcium mass conc 10.2 mg/dL Normal 8.7-10.3 [facility] Internal Medicine Work Phone: Comment on above: PATIENT WAS FASTINGP ERFORMED BY: RUTH [facility] Cpifek3293 Dean RoadDublin [place] [id number] Chloride molar conc 103 mmol/L Normal 96-106 Compr ehensive Internal Medicine Work Phone: Comment on above: PATIENT WAS FASTINGP ERFORMED BY: RUTH LabCohu PadronZszphk8739 [facility] [id number] CO2 molar conc 22 mmol/L Normal 18-29 Comprehens rudolph Internal Medicine Work Phone: Comment on above: PATIENT WAS FASTINGP ERFORMED BY: LabCo Sfgjmj9858 [facility] [id number] Creatinine mass conc 0.65 mg/dL Normal 0.57-1.00 Comp rehensive Internal Medicine Work Phone: Comment on above: PATIENT WAS FASTINGP ERFORMED BY: [facility] Izhhnu9814 [facility] [id number] GFR/1.73 sq M predicted among blacks CKD-EPI vol rate/area (S/P/Bld) 106 mL/min/1.73 Normal Comprehe nsive Internal Medicine Work Phone: Comment on above: PATIENT WAS FASTINGP ERFORMED BY: [facility]6370 [facility] [id number] GFR/1.73 sq M predicted among non-blacks CKD-EPI vol rate/area (S/P/Bld) 92 mL/min/1.73 Normal [facility] Work Phone: Comment on above: PATIENT WAS FASTINGP ERFORMED BY: [facility] Vhyyis7757 [facility] [id number] Globulin (S) [Mass/Vol] 2.4 g/dL Normal 1.5-4.5 C omprehensive Internal Medicine Work Phone: Comment on above: PATIENT WAS FASTINGP ERFORMED BY: LabCo Yivdtk3292 [facility] [id number] Globulin Calculated mass conc (S) 2.4 g/dL Normal 1.5-4.5 [facility] Work Phone: Glucose mass conc 93 mg/dL Normal 65-99 Compreh ensive Internal Medicine Work Phone: Comment on above: PATIENT WAS FASTINGP ERFORMED BY: RUTH MyaAlyx StoddardPlbhor4950 [facility] [place] [id number] Potassium molar conc 4.8 mmol/L Normal 3.5-5.2 Comp rehensive Internal Medicine Work Phone: Comment on above: PATIENT WAS FASTINGP ERFORMED BY: RUTH Stoddardlin6370 [facility] [id number] Protein mass conc 7.0 g/dL Normal 6.0-8.5 Compreh ensive Internal Medicine Work Phone: Comment on above: PATIENT WAS FASTINGP ERFORMED BY: RUTH Stoddardlin6370 [facility] [id number] Sodium molar conc 143 mmol/L Normal 134-144 Compreh ensive Internal Medicine Work Phone: Comment on above: PATIENT WAS FASTINGP ERFORMED BY: RUTH Stoddardlin6370 [facility] [id number] Urea nitrogen mass conc 15 mg/dL Normal 8-27 C omprehensive Internal Medicine Work Phone: Comment on above: PATIENT WAS FASTINGP ERFORMED BY: RUTH Stoddardlin6370 [facility] [id number] Urea nitrogen/Creatinine mass ratio 23 mg/mg Normal 12-28 [facility] Work Phone: Comment on above: PATIENT WAS FASTINGP ERFORMED BY: RUTH Stoddardlin6370 [facility] [id number] MICROALBUMINOrdered By: Syst em Electroencephalographic Technologist on 11-10-2017 Albumin DL <= 20 mg/L mass conc (U) 9.0 ug/mL Normal [facility] Work Phone: Comment on above: PATIENT WAS FASTINGP ERFORMED BY: RUTH Stoddardlin6370 [facility] [id number] Albumin/Creatinine mass ratio (U) 5.9 {mg/g_creat} Normal 0.0-30.0 [facility] Work Phone: Comment on above: PATIENT WAS FASTINGP ERFORMED BY: RUTH [facility] Ovmgol6726 [address] RoadDublin [place] [id number] Creatinine mass conc (U) 152.4 mg/dL Normal [facility] Work Phone: Comment on above: PATIENT WAS FASTINGP ERFORMED BY: RUTH [facility] Hfzwhd5125 [address] RoadDublin [place] [id number] Microscopic ExaminationOrder ed By: Flight Reservations Manager on 11-10-2017 Bacteria LM.HPF #/area (Urine sed) None seen Normal [facility] Work Phone: Comment on above: PATIENT WAS FASTINGP ERFORMED BY: [facility] Wqxbsk6363 [address] RoadDublin [place] [id number] Crystals LM Nom (Urine sed) Calcium Oxalate Normal [facility] Work Phone: Comment on above: PATIENT WAS FASTINGP ERFORMED BY: RUTH [facility] Gzlewf8209 [facility]in [place] [id number] Epithelial cells LM.HPF #/area (Urine sed) 0-10 Normal 0 - 10 [facility] Work Phone: Comment on above: PATIENT WAS FASTINGP ERFORMED BY: RUTH [facility] Kewjaz3848 [address] [facility] [place] Centerbl[place] [id number] Mucus LM Ql (Urine sed) Present Normal C omprehensive Internal Medicine Work Phone: Mucus Ql (Urine sed) Present Normal Comp rehensive Internal Medicine Work Phone: Comment on above: PATIENT WAS FASTINGP ERFORMED BY: [facility] Nzvzro1483 [address] RoadDublin [place] [id number] RBC LM.HPF #/area (Urine sed) 0-2 Normal 0 - 2 [facility] Work Phone: Comment on above: PATIENT WAS FASTINGP ERFORMED BY: RUTH [facility] Bepyav2614 [address] RoadDublin [place] [id number] Unidentified crystals LM Ql (Urine sed) Present Abnormal [facility] Work Phone: Comment on above: PATIENT WAS FASTINGP ERFORMED BY: [facility] Chnokz1454 [address] Roadblin [place] [id number] WBC LM.HPF #/area (Urine sed) 0-5 Normal 0 - 5 [facility] Work Phone: Comment on above: PATIENT WAS FASTINGP ERFORMED BY: RUTH [facility] Ggdgay9823 [facility] [id number] T3, FREE (TRIDOTHYRONINE) ([id number] [id number])Ordered By: Flight Reservations Manager on 11-10-2017 T3 free mass conc 3.1 pg/mL Normal 2.0-4.4 Compreh ensive Internal Medicine Work Phone: Comment on above: PATIENT WAS FASTINGP ERFORMED BY: RUTH LabCoBacharach Institute for RehabilitationEgztpg2791 [facility] [id number] T4, FREE (THYROXINE) ([id number]) Ordered By: Flight Reservations Manager on 11-10-2017 T4 free mass conc 1.29 ng/dL Normal 0.82-1.77 Compreh ensive Internal Medicine Work Phone: Comment on above: PATIENT WAS FASTINGP ERFORMED BY: RUTH LabMym[facility] Center6370 [facility] [id number] TSH (39013)Ordered By: Syste m Electroencephalographic Technologist on 11-10-2017 Thyrotropin Qn 1.970 {uIU/mL} Normal 0.450-4.50 0 [facility] Work Phone: Comment on above: PATIENT WAS FASTINGP ERFORMED BY: RUTH LabCoRehoboth McKinley Christian Health Care ServicesXkqutc0335 [facility] [id number] URINALYSIS, W/ MICRO (76353) Ordered By: Flight Reservations Manager on 11-10-2017 Appearance Nom (U) Clear Normal Compre hensive Internal Medicine Work Phone: Comment on above: PATIENT WAS FASTINGP ERFORMED BY: LabCo Eytmgn5839 [facility] [id number] Bilirubin Ql (U) Negative Normal Comprehe nsive Internal Medicine Work Phone: Comment on above: PATIENT WAS FASTINGP ERFORMED BY: [facility] Imukbt7290 [facility] [id number] Bilirubin Ql (U) Negative Normal Comprehe nsive Internal Medicine; [facility] Work Phone: Comment on above: PATIENT WAS FASTINGP ERFORMED BY: RUTH Padron6370 [address] RoadD[address] [place] [id number] Color Nom (U) Yellow Normal Comprehensi ve Internal Medicine Work Phone: Comment on above: PATIENT WAS FASTINGP ERFORMED BY: RUTH Padron6370 [address] RoadD[address] [place] [id number] Glucose Ql (U) Negative Normal Comprehens rudolph Internal Medicine Work Phone: Comment on above: PATIENT WAS FASTINGP ERFORMED BY: RUTH Padron6370 [address] [place] [id number] Glucose Ql (U) Negative Normal Comprehens rudolph Internal [facility]; [facility] Work Phone: Comment on above: PATIENT WAS FASTINGP ERFORMED BY: RUTH Everett70 [address] RoadD[address] [place] [id number] Hemoglobin Ql (U) Negative Normal Compreh ensive Internal Medicine Work Phone: Comment on above: PATIENT WAS FASTINGP ERFORMED BY: RUTH Padron6370 [address] [place] [id number] Hemoglobin Ql (U) Negative Normal Compreh ensive Internal Medicine; [facility] Work Phone: Comment on above: PATIENT WAS FASTINGP ERFORMED BY: RUTH Padron6370 [address] [place] [id number] Hemoglobin Test strip Ql (U) Negative Normal [facility] Work Phone: Ketones Ql (U) Trace Abnormal Comprehens rudolph Internal Medicine Work Phone: Comment on above: PATIENT WAS FASTINGP ERFORMED BY: RUTH Stoddardlin6370 [address] RoadD[address] [place] [id number] Leukocyte esterase Test strip Ql (U) Negative Normal [facility] Work Phone: Comment on above: PATIENT WAS FASTINGP ERFORMED BY: RUTH Sotddardlin6370 [address] RoadD[address] [place] [id number] Leukocyte esterase Test strip Ql (U) Negative Normal [facility]; [facility] Work Phone: Comment on above: PATIENT WAS FASTINGP ERFORMED BY: RUTH Padron6370 [address] [place] [id number] Microscopic observation LM Nom (Urine sed) See below: Normal [facility] Work Phone: Comment on above: Microscopic was al cated and was performed. PATIENT WAS FASTINGP ERFORMED BY: RUTH Padron6370 [address] RoadD[address] [place] [id number] Microscopic observation LM Nom (Urine sed) MICRON Normal [facility] Work Phone: Comment on above: Microscopic follows if indicated. PATIENT WAS FASTINGP ERFORMED BY: RUTH Padron6370 [address] [place] [id number] Nitrite Ql (U) Negative Normal Comprehens rudolph Internal Medicine Work Phone: Comment on above: PATIENT WAS FASTINGP ERFORMED BY: RUTH Padron6370 [address] [place] [id number] Nitrite Ql (U) Negative Normal Comprehens rudolph Internal Medicine; [facility] Work Phone: Comment on above: PATIENT WAS FASTINGP ERFORMED BY: RUTH Padron6370 [address] [place] [id number] Nitrite Test strip Ql (U) Negative Normal [facility] Work Phone: pH (U) 6.0 [pH] Normal 5.0-7.5 [facility] Work Phone: Comment on above: PATIENT WAS FASTINGP ERFORMED BY: RUTH Stoddardlin6370 [address] RoadD[address] [place] [id number] pH Test strip (U) 6.0 [pH] Normal 5.0-7.5 Compreh ensive Internal Medicine Work Phone: Protein Ql (U) Negative Normal Comprehens rudolph Internal Medicine Work Phone: Comment on above: PATIENT WAS FASTINGP ERFORMED BY: RUTH Stoddardlin6370 [address] RoadD[address] [place] [id number] Protein Ql (U) Negative Normal Comprehens rudolph [facility]; [facility] Work Phone: Comment on above: PATIENT WAS FASTINGP ERFORMED BY: CB [facility] Phgmrj2014 [address] RoadD[address] [place] [id number] Protein Test strip Ql (U) Negative Normal [facility] Work Phone: Specific gravity Relative Density (U) >=1.030 Abnormal 1.005-1.03 0 [facility] Work Phone: Comment on above: PATIENT WAS FASTINGP ERFORMED BY: CB [facility] Zlqpfi6605 [address] RoadD[address] [place] [id number] Urobilinogen (U) [Mass/Vol] 0.2 mg/dL Normal 0.2-1.0 [facility]; [facility] Work Phone: Comment on above: PATIENT WAS FASTINGP ERFORMED BY: CB [facility] Gwwppy3246 [address] RoadD[address] [place] [id number] Urobilinogen Test strip mass conc (U) 0.2 mg/dL Normal 0.2-1.0 [facility] Work Phone: Comment on above: PATIENT WAS FASTINGP ERFORMED BY: CB [facility] Lxqtor8513 [address] RoadDublin [place] [id number] CALCIFIDIOL (05469) VIT D 25 Ordered By: Flight Reservations Manager on 11-02-2016 25-Hydroxyvitamin D2+25-Hydroxyvitamin D3 mass conc 69.9 ng/mL Normal 30.0-100.0 [facility] Work Phone: Comment on above: Vitamin D deficiency has been defined by the [place] of[place]icine and an Endocrine Society practice guideline as alevel of serum 25-OH vitamin D less than 20 ng/mL (1,2).The Endocrine Society went on to further define vitamin Dinsufficiency as a level between 21 and 29 ng/mL (2).1. IOM ([place] of [employer]). 2010. Dietary reference intakes for calcium and D. [place]: The National Academies Press.2. Jadon MF, Abimael NC, Susan BERNAL, et al. Evaluation, treatment, and prevention of vitamin D deficiency: an Endocrine Society clinical practice guideline. JCEM. 2010; 96(7):1911-30. PATIENT NOT FASTINGP ERFORMED BY: [facility] Lrmiqe2127 Dianne FarrarUNC Hospitals Hills[facility] [id number] Nuab Vaginitis Plus (trich /BV/GC/lillie W/O Herpes) (73999)Ordered By: Flight Reservations Manager on 11-02-2016 Atopobium vaginae DNA STEPHANIE+probe Ql (Vag fld) Low - 0 Normal Comprehen [facility] Internal Medicine Work Phone: Comment on above: PATIENT NOT FASTINGP ERFORMED BY: [address] [id number] Information: SRC:[place] Bacterial vaginosis associated bacterium 2 DNA STEPHANIE+probe Ql (Vag fld) Low - 0 Normal [facility] Work Phone: Comment on above: PATIENT NOT FASTINGP ERFORMED BY: [address] [id number] Information: SRC:[place] C. albicans DNA STEPHANIE+probe Ql (Vag fld) Negative Normal Comprehen [facility] Internal [facility] Work Phone: Comment on above: PATIENT NOT FASTINGP ERFORMED BY: [address] [id number] Information: SRC:[place] C. albicans DNA STEPHANIE+probe Ql (Vag fld) Negative Normal Comprehen [facility]; [facility] Work Phone: Comment on above: PATIENT NOT FASTINGP ERFORMED BY: [address] [id number] Information: SRC:[place] C. glabrata DNA STEPHANIE+probe Ql (Vag fld) Negative Normal Comprehen [facility] Internal Medicine Work Phone: Comment on above: This test was develo ped and its performance characteristics determinedby [facility]. It has not been cleared or approved by the Food and DrugAdministration. The FDA has determined that such clearance orapproval is not necessary. PATIENT NOT FASTINGP ERFORMED BY: BN [facility] [id number] Information: SRC:[place] C. glabrata DNA STEPHANIE+probe Ql (Vag fld) Negative Normal Comprehen [facility]; [facility] Work Phone: Comment on above: This test was develo ped and its performance characteristics determinedby [facility]. It has not been cleared or approved by the Food and DrugAdministration. The FDA has determined that such clearance orapproval is not necessary. PATIENT NOT FASTINGP ERFORMED BY: [address] [id number] Information: SRC:[place] C. trachomatis DNA STEPHANIE+probe Ql (Unsp spec) Negative Normal [facility] Work Phone: C. trachomatis rRNA STEPHANIE+probe Ql (Unsp spec) Negative Normal [facility] Work Phone: Comment on above: PATIENT NOT FASTINGP ERFORMED BY: [address] [id number] Information: SRC:[place] C. trachomatis rRNA STEPHANIE+probe Ql (Unsp spec) Negative Normal [facility]; [facility] Work Phone: Comment on above: PATIENT NOT FASTINGP ERFORMED BY: [address] [id number] Information: SRC:[place] Megasphaera sp type 1 DNA STEPHANIE+probe Ql (Vag fld) Low - 0 Normal [facility] Work Phone: Comment on above: Calculate total scor e by adding the 3 individual bacterialvaginosis (BV) marker scores together. Total score isinterpreted as follows:Total score 0-1: Indicates the absence of BV.Total score 2: Indeterminate for BV. Additional clinical data should be evaluated to establish a diagnosis.Total score 3-6: Indicates the presence of BV. .This test was developed and its performance characteristicsdetermined by [employer]. It has not been cleared or approvedby the Food and Drug Administration. The FDA has determinedthat such clearance or approval is not necessary. PATIENT NOT FASTINGP ERFORMED BY: [address] [id number] Information: SRC:[place] N. gonorrhoeae DNA STEPHANIE+probe Ql (Unsp spec) Negative Normal [facility] Work Phone: N. gonorrhoeae rRNA STEPHANIE+probe Ql (Unsp spec) Negative Normal [facility] Work Phone: Comment on above: PATIENT NOT FASTINGP ERFORMED BY: [address] [id number] Information: SRC:[place] N. gonorrhoeae rRNA STEPHANIE+probe Ql (Unsp spec) Negative Normal [facility]; [facility] Work Phone: Comment on above: PATIENT NOT FASTINGP ERFORMED BY: [address] [id number] Information: SRC:[place] T. vaginalis rRNA STEPHANIE+probe Ql (Unsp spec) Negative Normal [facility] Work Phone: Comment on above: PATIENT NOT FASTINGP ERFORMED BY: [address] [id number] Information: SRC:[place] T. vaginalis rRNA STEPHANIE+probe Ql (Unsp spec) Negative Normal [facility]; [facility] Work Phone: Comment on above: PATIENT NOT FASTINGP ERFORMED BY: [address] [id number] Information: SRC:[place] Pap IG (Image Guided)Ordered By: Flight Reservations Manager on 11-02-2016 Microscopic observation Other stain Nom (Unsp spec) . Normal [facility] Work Phone: Comment on above: Source.............C ervix;EndocervixNo. of containers..01 CYTYC Thin Prep VialPATIENT NOT FASTINGPERFORMED BY: =G [facility] [address] [id number] BY: WB [facility] [address] [id number] Pathology report final diagnosis Narrative SPRCS Normal Comprehensiv e Internal Medicine Work Phone: Comment on above: NEGATIVE FOR INTRAEP ITHELIAL LESION AND MALIGNANCY.CELLULAR CHANGES ASSOCIATED WITH ATROPHY AND INFLAMMATION ARE PRESENT.Satisfactory for evaluation. Endocervical component may not bedistinguished in cases of atrophy.Z00.01Ashley Delgado, Retail Sales Teammate ([facility]) Source.............C ervix;EndocervixNo. of containers..01 CYTYC Thin Prep VialPATIENT NOT FASTINGPERFORMED BY: =G [facility] [address] [place] [id number] BY: WB LabCoRegisterPatientTmowmhiyna[address] [place] [id number] Pap IG (Image Guided) PAPSMR Normal [facility] Internal Medicine Work Phone: Comment on above: The Pap smear is a s creening test designed to aid in the detection ofpremalignant and malignant conditions of the uterine cervix. It is not adiagnostic procedure and should not be used as the sole means of detectingcervical cancer. Both false-positive and false-negative reports do occur. .This liquid based ThinPrep(R) pap test was screened with theuse of an image guided system. Source.............C ervix;EndocervixNo. of containers..01 CYTYC Thin Prep VialPATIENT NOT FASTINGPERFORMED BY: =G [facility] Hbellquusu[address] [place] [id number] BY: [employer] Bureauton120 [address] [id number] Thin prep Pap (03196) (no ST D testing)Ordered By: Flight Reservations Manager on 11-02-2016 Thin prep Pap (23014) (no STD testing) AGE5 Normal [facility] Work Phone: Comment on above: <21 or >65 or no age provided Source.............C ervix;EndocervixNo. of containers..01 CYTYC Thin Prep VialPATIENT NOT FASTINGPERFORMED BY: =G [facility] Pyanckiyyq[address] [place] [id number] BY: [facility] [address] [facility] [place] [id number] Information: [id number] CBC W/Diff, AutomatedOrdered By: Flight Reservations Manager on 10-28-2016 Absolute Lymph 1.88 {X10_3/ul} Normal 0.83-4.51 Compr ehensive Internal Medicine Work Phone: Absolute Neut 3.0 {X10_3/uL} Normal 2.0-7.7 Compreh ensive Internal Medicine Work Phone: Comment on above: [facility] [address] [place], [address] Basophils/100 WBC (Bld) 0.3 % Normal 0-1 C omprehensive Internal Medicine Work Phone: Comment on above: [facility] [address] [place], [address] Basophils/100 WBC Auto (Bld) 0.3 % Normal 0-1 [facility] Work Phone: Eosinophils/100 WBC (Bld) 6.8 % Abnormal 0-5 [facility] Work Phone: Comment on above: [facility] [address] [place], [address] Eosinophils/100 WBC Auto (Bld) 6.8 % Abnormal 0-5 [facility] Work Phone: Erythrocyte distribution width (RBC) [Ratio] 13.5 % Normal 11.6-14.6 [facility] Work Phone: Comment on above: [facility] [address] [place], [phone] Erythrocyte distribution width Auto Ratio (RBC) 13.5 % Normal 11.6-14.6 [facility] Work Phone: Hematocrit (Bld) [Volume fraction] 41.2 % Normal 37-47 [facility] Work Phone: Comment on above: [facility] [address] [place], [address] Hematocrit Auto Volume Fraction (Bld) 41.2 % Normal 37-47 [facility] Work Phone: Hemoglobin mass conc (Bld) 13.7 g/dL Normal 12.0-15.0 [facility] Work Phone: Comment on above: [place] [address] [place], [address] IM GRAN % 0.200 % Normal 0.0-0.9 [facility] Work Phone: Comment on above: IG% - Immature Granu locytes (promyelocytes, myelocytes andmetamyelocytes) > 1% indicates that a LEFT SHIFT is Present. [place] [address] [place], [address] Lymphocytes (Bld) [#/Vol] 1.88 {X10_3/ul} Normal 0.83-4.51 [facility] Work Phone: Comment on above: [place] [address] [place], [address] Lymphocytes/100 WBC (Bld) 31.9 % Normal 19-41 [facility] Work Phone: Comment on above: [place] [address] [place], [address] Lymphocytes/100 WBC Auto (Bld) 31.9 % Normal 19-41 [facility] Work Phone: MCH (RBC) [Entitic mass] 28.1 pg Normal 27.0-32.0 [facility] Work Phone: Comment on above: [place] [address] [place], [address] MCH Auto Entitic mass (RBC) 28.1 pg Normal 27.0-32.0 [facility] Work Phone: MCHC (RBC) [Mass/Vol] 33.3 {g/gl} Normal 32-36 Co mprehensive [facility] Work Phone: Comment on above: [facility] [address] [place], [address] MCHC Auto mass conc (RBC) 33.3 {g/gl} Normal 32-36 [facility] Work Phone: MCV (RBC) [Entitic vol] 84.4 fL Normal 81-99 C omprehensive Internal Medicine Work Phone: Comment on above: [facility] [address] [place], [address] MCV Auto Entitic volume (RBC) 84.4 fL Normal 81-99 [facility] Work Phone: Monocytes/100 WBC Auto (Bld) 9.5 % Normal 0-10 [facility] Work Phone: Comment on above: [facility] [address] [place], [address] Monocytes/100 WBC Auto (Bld) 9.5 % Normal 0-10 [facility] Work Phone: Neutrophils/100 WBC (Bld) 51.3 % Normal 47-70 [facility] Work Phone: Comment on above: [facility] [address] [place], [address] Neutrophils/100 WBC Auto (Bld) 51.3 % Normal 47-70 [facility] Work Phone: Platelet mean volume (Bld) [Entitic vol] 10.2 fL Normal 6.2-12.0 Comprehensiv e Internal Medicine Work Phone: Comment on above: [facility] [address] [place], [address] Platelet mean volume Auto Entitic volume (Bld) 10.2 fL Normal 6.2-12.0 [facility] Work Phone: Platelets (Bld) [#/Vol] 290 10*3/uL Normal 150-450 [facility] Work Phone: Comment on above: [facility] [address] [place], [address] Platelets Auto #/vol (Bld) 290 10*3/uL Normal 150-450 [facility] Work Phone: RBC (Bld) [#/Vol] 4.88 {M/mm3} Normal 4.2-5.4 [facility] Internal Medicine Work Phone: Comment on above: [facility] [address] [place], [address] RBC Auto #/vol (Bld) 4.88 {M/mm3} Normal 4.2-5.4 [facility] Internal Medicine Work Phone: RDW SD 41.0 fL Normal 35.1-43.9 [facility] Internal Medicine Work Phone: Comment on above: [facility] [address] [place], [address] WBC (Bld) [#/Vol] 5.9 10*3/uL Normal 4.4-11.0 [facility] Internal Medicine Work Phone: Comment on above: [facility] [address] [place], [address] WBC Auto #/vol (Bld) 5.9 10*3/uL Normal 4.4-11.0 [facility] Internal Medicine Work Phone: CBC W/Diff, Automated 0.200 % Normal 0.0-0.9 [facility] Internal Medicine Work Phone: Comment on above: IG% - Immature Granu locytes (promyelocytes, myelocytes andmetamyelocytes) > 1% indicates that a LEFT SHIFT is Present. CBC W/Diff, Automated 3.0 {X10_3/uL} Normal 2.0-7.7 [facility] Internal Medicine Work Phone: CBC W/Diff, Automated 1.88 {X10_3/ul} Normal 0.83-4.51 [facility] Work Phone: CBC W/Diff, Automated 41.0 fL Normal 35.1-43.9 Com prehensive Internal Medicine Work Phone: Comprehensive Metabolic Prof ilOrdered By: Flight Reservations Manager on 10-28-2016 Comprehensive metabolic 2000 panel 34 U/L Normal 12-78 [facility] Work Phone: Comment on above: Is Patient Taking Vi tamins or Folic Acid Supplements? [facility] [address] [place], [place], [phone] Comprehensive [facility] 2000 panel 7.1 g/dL Normal 6.4-8.2 [facility] Work Phone: Comment on above: Is Patient Taking Vi tamins or Folic Acid Supplements? [facility] [address] [place], [place], [phone] Comprehensive [facility] 2000 panel 3.5 g/dL Normal 2.3-3.5 [facility] Work Phone: Comment on above: Is Patient Taking Vi tamins or Folic Acid Supplements? [facility] [address] [place], [place], [phone] [facility] 2000 panel 26.5 {RATIO} Abnormal 10-20 [facility] Work Phone: Comment on above: Is Patient Taking Vi tamins or Folic Acid Supplements? [facility] [address] [place], [address] Comprehensive metabolic 2000 panel 162 mL/min Normal [facility] Work Phone: Comment on above: GFR Calc Is Patient Taking Vi tamins or Folic Acid Supplements? [facility] [address] [place], [place], [phone] Comprehensive [facility] 2000 panel 134 mL/min Normal [facility] Work Phone: Comment on above: Non- GFR Calc Is Patient Taking Vi tamins or Folic Acid Supplements? [facility] [address] [place], [address] Comprehensive metabolic 2000 panel 1.0 {RATIO} Normal 0.9-2.4 [facility] Work Phone: Comment on above: Is Patient Taking Vi tamins or Folic Acid Supplements? [facility] [address] [place], [address] Comprehensive metabolic 2000 panel 9.0 mg/dL Normal 8.5-10.1 [facility] Work Phone: Comment on above: Is Patient Taking Vi tamins or Folic Acid Supplements? [facility] [address] [place], [address] Comprehensive metabolic 2000 panel 18 U/L Normal 15-37 [facility] Work Phone: Comment on above: Is Patient Taking Vi tamins or Folic Acid Supplements? [facility] [address] [place], [address] Comprehensive metabolic 2000 panel 93 U/L Normal 45-117 [facility] Work Phone: Comment on above: Is Patient Taking Vi tamins or Folic Acid Supplements? [facility] [address] [place], [address] Comprehensive metabolic 2000 panel 3.6 g/dL Normal 3.4-5.0 [facility] Work Phone: Comment on above: Is Patient Taking Vi tamins or Folic Acid Supplements? [facility] [address] [place], [address] Comprehensive metabolic 2000 panel 0.40 mg/dL Normal 0.20-1.00 [facility] Work Phone: Comment on above: Is Patient Taking Vi tamins or Folic Acid Supplements? [facility] [address] [place], [address] Comprehensive metabolic 2000 panel 141 mmol/L Normal 136-145 [facility] Work Phone: Comment on above: Is Patient Taking Vi tamins or Folic Acid Supplements? [facility] [address] [place], [place], [phone] [facility] 2000 panel 0.49 mg/dL Abnormal 0.55-1.02 [facility] Work Phone: Comment on above: The validity of the calculated GFR AND GFRAA in patients over70 years has not been determined. Clinical correlation isessential. Is Patient Taking Vi tamins or Folic Acid Supplements? [facility] [address] [place], [address] Comprehensive metabolic 2000 panel 13 mg/dL Normal 7-18 [facility] Work Phone: Comment on above: Is Patient Taking Vi tamins or Folic Acid Supplements? [facility] [address] [place], [place], [phone] Comprehensive [facility] 2000 panel 24.0 mmol/L Normal 21.0-32.0 [facility] Work Phone: Comment on above: Is Patient Taking Vi tamins or Folic Acid Supplements? [facility] [address] [place], [place], [phone] Comprehensive [facility] 2000 panel 89 mg/dL Normal 70-110 [facility] Work Phone: Comment on above: Is Patient Taking Vi tamins or Folic Acid Supplements? [facility] [address] [place], [place], [phone] Comprehensive metabolic 2000 panel 3.8 mmol/L Normal 3.5-5.1 [facility] Work Phone: Comment on above: Is Patient Taking Vi tamins or Folic Acid Supplements? [facility] [address] [place], [phone] Comprehensive metabolic 2000 panel 106 mmol/L Normal 98-107 [facility] Work Phone: Comment on above: Is Patient Taking Vi tamins or Folic Acid Supplements? [facility] [address] [place], [place], [phone] Comprehensive [facility] 2000 panel 11 1 Normal 5-15 [facility] Work Phone: Comment on above: Is Patient Taking Vi tamins or Folic Acid Supplements? [facility] [address] [place], [phone] Folates, (Folic Acid)Ordered By: Flight Reservations Manager on 10-28-2016 FOLATES 19.70 ng/mL Abnormal 3.1-17.5 [facility] Work Phone: Folates, (Folic Acid) 19.70 ng/mL Abnormal 3.1-17.5 Co [facility] Internal Medicine Work Phone: Comment on above: Is Patient Taking Vi tamins or Folic Acid Supplements? [facility] [address] [place], [address] Free H6Olhaeuz By: System Ma pankaj on 10-28-2016 T3 free mass conc 3.8 pg/mL Normal 2.18-3.98 Compreh [facility] Internal Medicine Work Phone: Comment on above: Is Patient Taking Vi tamins or Folic Acid Supplements? [facility] [address] [place], [phone] Lipid ProfileOrdered By: Sys tem Electroencephalographic Technologist on 10-28-2016 Cholesterol in HDL mass conc 64 mg/dL Normal [facility] Work Phone: Comment on above: The drugs N-Acetylcy steine and Metamizole may falsely deressthis assay. Reference Range HDL <40 mg/dL Low HDL Cholesterol HDL >or= 60 mg/dL High HDL Cholesterol Is Patient Taking Vi tamins or Folic Acid Supplements? [facility] [address] [place], [phone] Cholesterol in LDL mass conc 106 mg/dL Normal 0-130 [facility] Work Phone: Cholesterol in LDL mass conc 106 mg/dL Normal 0-130 [facility] Work Phone: Comment on above: Is Patient Taking Vi tamins or Folic Acid Supplements? [facility] [address] [place], [phone] Cholesterol in VLDL mass conc 11 mg/dL Normal 5-40 [facility] Work Phone: Comment on above: Is Patient Taking Vi tamins or Folic Acid Supplements? [facility] [address] [place], [place], [phone] Cholesterol mass conc 181 mg/dL Normal Com prehensive Internal Medicine Work Phone: Comment on above: <200 mg/dL Desirable 200-240 mg/dL Borderline >240 mg/dL High Risk Is Patient Taking Vi tamins or Folic Acid Supplements? [facility] [address] [place], [place], [phone] Triglyceride mass conc 53 mg/dL Normal Co mprehensive Internal Medicine Work Phone: Comment on above: The drugs N-Acetylcy steine and Metamizole may falsely deressthis assay.Serum Triglycerides Reference Interval Normal <150 mg/dL Borderline high 150 - 199 mg/dL High 200 - 499 mg/dL Very High > or = 500 mg/dL Is Patient Taking Vi tamins or Folic Acid Supplements? [facility] [address] [place], [place], [phone] Lipid Profile 11 mg/dL Normal 5-40 Comprehensi ve Internal Medicine Work Phone: MicroalbOrdered By: Gerson juares on 10-28-2016 Creatinine [Mass/Vol] 124.00 mg/dL Normal C omprehensive Internal Medicine Work Phone: Comment on above: [facility] [address] [place], [place], [phone] Creatinine mass conc 5.3 {mg/g_CRE} Normal [facility] Work Phone: Comment on above: [facility] [address] [place], [place], [phone] MICROALBUMIN,UR 6.6 mg/L Normal Comprehen sive Internal Medicine Work Phone: UR CREAT 124.00 mg/dL Normal Comprehensiv e Internal Medicine Work Phone: Microalb 6.6 mg/L Normal [facility] Work Phone: Comment on above: [facility] [address] [place], [place], [phone] Microalb 124.00 mg/dL Normal Comprehensiv e Internal Medicine Work Phone: T4 Free DirectOrdered By: Naviswiss wathena Electroencephalographic Technologist on 10-28-2016 T4 free mass conc 0.93 ng/dL Normal 0.76-1.46 Compreh ensive Internal Medicine Work Phone: Comment on above: Is Patient Taking Vi tamins or Folic Acid Supplements? [facility] [address] [place], [place], [phone] Thyroid Stim Hormone (TSH)Or dered By: Flight Reservations Manager on 10-28-2016 Thyrotropin Qn 5.81 {uIU/mL} Abnormal 0.358-3.74 Compreh ensive Internal Medicine Work Phone: Comment on above: Is Patient Taking Vi tamins or Folic Acid Supplements? [facility] [address] [place], [place], [phone] Vitamin V29Ifctqnv By: Jaimie Electroencephalographic Technologist on 10-28-2016 Cobalamin (Vitamin B12) mass conc 720 pg/mL Normal 211-911 [facility] Work Phone: Comment on above: [facility] [address] [place], [place], [phone] CBC W/Diff, AutomatedOrdered By: Flight Reservations Manager on 05-14-2016 Absolute Lymph 3.44 {X10_3/ul} Normal 0.83-4.51 Compr ehensive Internal Medicine Work Phone: Absolute Neut 4.5 {X10_3/uL} Normal 2.0-7.7 Compreh ensive Internal Medicine Work Phone: Comment on above: [facility] [address] [place], [address] Basophils/100 WBC (Bld) 0.2 % Normal 0-1 C omprehensive Internal Medicine Work Phone: Comment on above: [facility] [address] [place], [address] Basophils/100 WBC Auto (Bld) 0.2 % Normal 0-1 [facility] Work Phone: Eosinophils/100 WBC (Bld) 3.7 % Normal 0-5 [facility] Work Phone: Comment on above: [facility] [address] [place], [address] Eosinophils/100 WBC Auto (Bld) 3.7 % Normal 0-5 [facility] Work Phone: Erythrocyte distribution width (RBC) [Ratio] 13.1 % Normal 11.6-14.6 [facility] Work Phone: Comment on above: [facility] [address] [place], [address] Erythrocyte distribution width Auto Ratio (RBC) 13.1 % Normal 11.6-14.6 [facility] Work Phone: Hematocrit (Bld) [Volume fraction] 40.2 % Normal 37-47 [facility] Work Phone: Comment on above: [place] [address] [place], [address] Hematocrit Auto Volume Fraction (Bld) 40.2 % Normal 37-47 [facility] Work Phone: Hemoglobin mass conc (Bld) 13.6 g/dL Normal 12.0-15.0 [facility] Work Phone: Comment on above: [facility] [address] [place], [address] IM GRAN % 0.400 % Normal 0.0-0.9 [facility] Work Phone: Comment on above: IG% - Immature Granu locytes (promyelocytes, myelocytes andmetamyelocytes) > 1% indicates that a LEFT SHIFT is Present. [facility] [address] [place], [address] Lymphocytes (Bld) [#/Vol] 3.44 {X10_3/ul} Normal 0.83-4.51 [facility] Work Phone: Comment on above: [facility] [address] [place], [address] Lymphocytes/100 WBC (Bld) 38.2 % Normal 19-41 [facility] Work Phone: Comment on above: [facility] [address] [place], [address] Lymphocytes/100 WBC Auto (Bld) 38.2 % Normal 19-41 [facility] Work Phone: MCH (RBC) [Entitic mass] 28.5 pg Normal 27.0-32.0 [facility] Work Phone: Comment on above: [facility] [address] [place], [address] MCH Auto Entitic mass (RBC) 28.5 pg Normal 27.0-32.0 [facility] Work Phone: MCHC (RBC) [Mass/Vol] 33.8 {g/gl} Normal 32-36 Co mprehensive Internal Medicine Work Phone: Comment on above: [facility] [address] [place], [address] MCHC Auto mass conc (RBC) 33.8 {g/gl} Normal 32-36 [facility] Work Phone: MCV (RBC) [Entitic vol] 84.3 fL Normal 81-99 C [facility]mpst. [facility] Internal Medicine Work Phone: Comment on above: [facility] [address] [place], [address] MCV Auto Entitic volume (RBC) 84.3 fL Normal 81-99 [facility] Work Phone: Monocytes/100 WBC Auto (Bld) 7.9 % Normal 0-10 [facility] Work Phone: Comment on above: [facility] [address] [place], [address] Monocytes/100 WBC Auto (Bld) 7.9 % Normal 0-10 [facility] Work Phone: Neutrophils/100 WBC (Bld) 49.6 % Normal 47-70 [facility] Work Phone: Comment on above: [facility] [address] [place], [address] Neutrophils/100 WBC Auto (Bld) 49.6 % Normal 47-70 [facility] Work Phone: Platelet mean volume (Bld) [Entitic vol] 9.4 fL Normal 6.2-12.0 [facility] Internal [facility] Work Phone: Comment on above: [facility] [address] [place], [address] Platelet mean volume Auto Entitic volume (Bld) 9.4 fL Normal 6.2-12.0 [facility] Work Phone: Platelets (Bld) [#/Vol] 378 10*3/uL Normal 150-450 [facility] Work Phone: Comment on above: [facility] [address] [place], [address] Platelets Auto #/vol (Bld) 378 10*3/uL Normal 150-450 [facility] Work Phone: RBC (Bld) [#/Vol] 4.77 {M/mm3} Normal 4.2-5.4 [facility] Internal Medicine Work Phone: Comment on above: [facility] [address] [place], [place], [address] RBC Auto #/vol (Bld) 4.77 {M/mm3} Normal 4.2-5.4 [facility] Work Phone: RDW SD 39.8 fL Normal 35.1-43.9 Comprehensive Internal Medicine Work Phone: Comment on above: [facility] [address] [place], [address] WBC (Bld) [#/Vol] 9.0 10*3/uL Normal 4.4-11.0 [facility] Internal Medicine Work Phone: Comment on above: [facility] [address] [place], [address] WBC Auto #/vol (Bld) 9.0 10*3/uL Normal 4.4-11.0 [facility] Work Phone: CBC W/Diff, Automated 3.44 {X10_3/ul} Normal 0.83-4.51 Comprehensive Internal Medicine Work Phone: CBC W/Diff, Automated 4.5 {X10_3/uL} Normal 2.0-7.7 Comprehensive Internal Medicine Work Phone: CBC W/Diff, Automated 0.400 % Normal 0.0-0.9 [facility] Work Phone: Comment on above: IG% - Immature Granu locytes (promyelocytes, myelocytes andmetamyelocytes) > 1% indicates that a LEFT SHIFT is Present. CBC W/Diff, Automated 39.8 fL Normal 35.1-43.9 [facility] prehensive Internal Medicine Work Phone: Comprehensive Metabolic Prof ilOrdered By: Flight Reservations Manager on 05-14-2016 Comprehensive metabolic 2000 panel 6.5 g/dL Normal 6.4-8.2 Comprehensive Internal Medicine Work Phone: Comment on above: PLEASE ADD FOLATES T O BLOOD FROM THIS MORNINGIs Patient Taking Vitamins or Folic Acid Supplements? [facility] [address] [place], [place], [phone] Comprehensive metabolic 2000 panel 17.4 {RATIO} Normal 10-20 Comprehensive Internal Medicine Work Phone: Comment on above: PLEASE ADD FOLATES T O BLOOD FROM THIS MORNINGIs Patient Taking Vitamins or Folic Acid Supplements? [facility] [address] [place], [address] Comprehensive metabolic 2000 panel 121 mL/min Normal Comprehensive Internal Medicine Work Phone: Comment on above: GFR Calc PLEASE ADD FOLATES T O BLOOD FROM THIS MORNINGIs Patient Taking Vitamins or Folic Acid Supplements? [facility] [address] [place], [address] Comprehensive metabolic 2000 panel 27 U/L Normal 12-78 Comprehensive Internal Medicine Work Phone: Comment on above: PLEASE ADD FOLATES T O BLOOD FROM THIS MORNINGIs Patient Taking Vitamins or Folic Acid Supplements? [facility] [address] [place], [address] Comprehensive metabolic 2000 panel 10 1 Normal 5-15 Comprehensive Internal Medicine Work Phone: Comment on above: PLEASE ADD FOLATES T O BLOOD FROM THIS MORNINGIs Patient Taking Vitamins or Folic Acid Supplements? [facility] [address] [place], [address] Comprehensive metabolic 2000 panel 0.60 mg/dL Normal 0.20-1.00 Comprehensive Internal Medicine Work Phone: Comment on above: PLEASE ADD FOLATES T O BLOOD FROM THIS MORNINGIs Patient Taking Vitamins or Folic Acid Supplements? [facility] [address] [place], [address] Comprehensive metabolic 2000 panel 17 U/L Normal 15-37 Comprehensive Internal Medicine Work Phone: Comment on above: PLEASE ADD FOLATES T O BLOOD FROM THIS MORNINGIs Patient Taking Vitamins or Folic Acid Supplements? [facility] [address] [place], [phone] Comprehensive metabolic 2000 panel 3.5 mmol/L Normal 3.5-5.1 Comprehensive Internal Medicine Work Phone: Comment on above: PLEASE ADD FOLATES T O BLOOD FROM THIS MORNINGIs Patient Taking Vitamins or Folic Acid Supplements? [facility] [address] [place], [place], [phone] Comprehensive metabolic 2000 panel 25.0 mmol/L Normal 21.0-32.0 Comprehensive Internal Medicine Work Phone: Comment on above: PLEASE ADD FOLATES T O BLOOD FROM THIS MORNINGIs Patient Taking Vitamins or Folic Acid Supplements? [facility] [address] [place], [phone] Comprehensive metabolic 2000 panel 8.2 mg/dL Abnormal 8.5-10.1 Comprehensive Internal Medicine Work Phone: Comment on above: PLEASE ADD FOLATES T O BLOOD FROM THIS MORNINGIs Patient Taking Vitamins or Folic Acid Supplements? [facility] [address] [place], [phone] Comprehensive metabolic 2000 panel 100 mL/min Normal Comprehensive Internal Medicine Work Phone: Comment on above: Non- GFR Calc PLEASE ADD FOLATES T O BLOOD FROM THIS MORNINGIs Patient Taking Vitamins or Folic Acid Supplements? [facility] [address] [place], [phone] Comprehensive metabolic 2000 panel 0.63 mg/dL Normal 0.55-1.20 Comprehensive Internal Medicine Work Phone: Comment on above: The validity of the calculated GFR AND GFRAA in patients over70 years has not been determined. Clinical correlation isessential. PLEASE ADD FOLATES T O BLOOD FROM THIS MORNINGIs Patient Taking Vitamins or Folic Acid Supplements? [facility] [address] [place], [phone] Comprehensive metabolic 2000 panel 1.0 {RATIO} Normal 0.9-2.4 Comprehensive Internal Medicine Work Phone: Comment on above: PLEASE ADD FOLATES T O BLOOD FROM THIS MORNINGIs Patient Taking Vitamins or Folic Acid Supplements? [facility] [address] [place], [address] Comprehensive metabolic 2000 panel 11 mg/dL Normal 7-18 Comprehensive Internal Medicine Work Phone: Comment on above: PLEASE ADD FOLATES T O BLOOD FROM THIS MORNINGIs Patient Taking Vitamins or Folic Acid Supplements? [facility] [address] [place], [address] Comprehensive metabolic 2000 panel 78 mg/dL Normal 70-110 Comprehensive Internal Medicine Work Phone: Comment on above: PLEASE ADD FOLATES T O BLOOD FROM THIS MORNINGIs Patient Taking Vitamins or Folic Acid Supplements? [facility] [address] [place], [phone] Comprehensive metabolic 2000 panel 3.2 g/dL Normal 2.3-3.5 Comprehensive Internal Medicine Work Phone: Comment on above: PLEASE ADD FOLATES T O BLOOD FROM THIS MORNINGIs Patient Taking Vitamins or Folic Acid Supplements? [facility] [address] [place], [address] Comprehensive metabolic 2000 panel 3.3 g/dL Abnormal 3.4-5.0 Comprehensive Internal Medicine Work Phone: Comment on above: PLEASE ADD FOLATES T O BLOOD FROM THIS MORNINGIs Patient Taking Vitamins or Folic Acid Supplements? [facility] [address] [place], [address] Comprehensive metabolic 2000 panel 103 mmol/L Normal 98-107 Comprehensive Internal Medicine Work Phone: Comment on above: PLEASE ADD FOLATES T O BLOOD FROM THIS MORNINGIs Patient Taking Vitamins or Folic Acid Supplements? [facility] [address] [place], [address] Comprehensive metabolic 2000 panel 138 mmol/L Normal 136-145 Comprehensive Internal Medicine Work Phone: Comment on above: PLEASE ADD FOLATES T O BLOOD FROM THIS MORNINGIs Patient Taking Vitamins or Folic Acid Supplements? [facility] [address] [place], [phone] Comprehensive metabolic 2000 panel 80 U/L Normal 50-136 Comprehensive Internal Medicine Work Phone: Comment on above: PLEASE ADD FOLATES T O BLOOD FROM THIS MORNINGIs Patient Taking Vitamins or Folic Acid Supplements? [facility] [address] [place], [place], [phone] Folates, (Folic Acid)Ordered By: Flight Reservations Manager on 05-14-2016 FOLATES 43.60 ng/mL Abnormal 3.1-17.5 Comprehensive Internal Medicine Work Phone: Folates, (Folic Acid) 43.60 ng/mL Abnormal 3.1-17.5 [facility] Internal Medicine Work Phone: Comment on above: PLEASE ADD FOLATES T O BLOOD FROM THIS MORNINGIs Patient Taking Vitamins or Folic Acid Supplements? [facility] [address] [place], [place], [phone] Free M1Snrbqrn By: System Amarilis lira on 05-14-2016 T3 free mass conc 2.8 pg/mL Normal 2.18-3.98 Compreh ensive Internal Medicine Work Phone: Comment on above: PLEASE ADD FOLATES T O BLOOD FROM THIS MORNINGIs Patient Taking Vitamins or Folic Acid Supplements? [facility] [address] [place], [place], [phone] Hemoglobin Q5jVmsgdls By: Sy stem Electroencephalographic Technologist on 05-14-2016 Hemoglobin A1c/Hemoglobin.total mass fraction (Bld) 5.6 % Normal 4.2-6.3 Comprehensiv e Internal Medicine Work Phone: Comment on above: [facility] [address] [place], [place], [phone] Lipid ProfileOrdered By: Naviswiss tem Electroencephalographic Technologist on 05-14-2016 Cholesterol in HDL mass conc 56 mg/dL Normal Comprehensive Internal Medicine Work Phone: Comment on above: The drugs N-Acetylcy steine and Metamizole may falsely deressthis assay. Reference Range HDL <40 mg/dL Low HDL Cholesterol HDL >or= 60 mg/dL High HDL Cholesterol PLEASE ADD FOLATES T O BLOOD FROM THIS MORNINGIs Patient Taking Vitamins or Folic Acid Supplements? [facility] [address] [place], [address] Cholesterol in LDL mass conc 67 mg/dL Normal 0-130 Comprehensive Internal Medicine Work Phone: Cholesterol in LDL mass conc 67 mg/dL Normal 0-130 Comprehensive Internal Medicine Work Phone: Comment on above: PLEASE ADD FOLATES T O BLOOD FROM THIS MORNINGIs Patient Taking Vitamins or Folic Acid Supplements? [facility] [address] [place], [address] Cholesterol in VLDL mass conc 30 mg/dL Normal 5-40 Comprehensive Internal Medicine Work Phone: Comment on above: PLEASE ADD FOLATES T O BLOOD FROM THIS MORNINGIs Patient Taking Vitamins or Folic Acid Supplements? [facility] [address] [place], [phone] Cholesterol mass conc 153 mg/dL Normal Com prehensive Internal Medicine Work Phone: Comment on above: <200 mg/dL Desirable 200-240 mg/dL Borderline >240 mg/dL High Risk PLEASE ADD FOLATES T O BLOOD FROM THIS MORNINGIs Patient Taking Vitamins or Folic Acid Supplements? [facility] [address] [place], [phone] Triglyceride mass conc 148 mg/dL Normal Co mprehensive Internal Medicine Work Phone: Comment on above: The drugs N-Acetylcy steine and Metamizole may falsely deressthis assay.Serum Triglycerides Reference Interval Normal <150 mg/dL Borderline high 150 - 199 mg/dL High 200 - 499 mg/dL Very High > or = 500 mg/dL PLEASE ADD FOLATES T O BLOOD FROM THIS MORNINGIs Patient Taking Vitamins or Folic Acid Supplements? [facility] [address] [place], [phone] Lipid Profile 30 mg/dL Normal 5-40 Comprehensi ve Internal Medicine Work Phone: MicroalbOrdered By: Gerson juares on 05-14-2016 Creatinine [Mass/Vol] 202.00 mg/dL Normal C omprehensive Internal Medicine Work Phone: Comment on above: [facility] [address] [place], [phone] Creatinine mass conc 4.8 {mg/g_CRE} Normal Comprehensive Internal Medicine Work Phone: Comment on above: [facility] [address] [place], [place], [phone] MICROALBUMIN,UR 9.6 mg/L Normal Comprehen sive Internal Medicine Work Phone: UR CREAT 202.00 mg/dL Normal Comprehensiv e Internal Medicine Work Phone: Microalb 9.6 mg/L Normal Comprehensive Internal Medicine Work Phone: Comment on above: [facility] [address] [place], [place], [phone] Microalb 202.00 mg/dL Normal Comprehensiv e Internal Medicine Work Phone: T3 Total - TriiodothyronineO rdered By: Flight Reservations Manager on 05-14-2016 T3 mass conc 1.33 ng/mL Normal 0.6-1.81 Comprehensiv e Internal Medicine Work Phone: Comment on above: [facility] [address] [place], [place], [phone] T4 Free DirectOrdered By: Sy stem Electroencephalographic Technologist on 05-14-2016 T4 free mass conc 0.95 ng/dL Normal 0.76-1.46 Compreh ensive Internal Medicine Work Phone: Comment on above: PLEASE ADD FOLATES T O BLOOD FROM THIS MORNINGIs Patient Taking Vitamins or Folic Acid Supplements? [facility] [address] [place], [place], [phone] T4 Total, ThyroxinOrdered By : Flight Reservations Manager on 05-14-2016 T4 mass conc 8.4 ug/dL Normal 4.8-13.9 Comprehensiv e Internal Medicine Work Phone: Comment on above: PLEASE ADD FOLATES T O BLOOD FROM THIS MORNINGIs Patient Taking Vitamins or Folic Acid Supplements? [facility] [address] [place], [place], [phone] Thyroid Peroxidase ABOrdered By: Flight Reservations Manager on 05-14-2016 Thyroperoxidase Ab Qn 13 {IU/mL} Normal 0-34 Com prehensive Internal Medicine Work Phone: Comment on above: Performed at: [address] [id number] Director: Tonio Bose PhD, Phone: [phone] [facility] (refer to re port for specific site)refer to report for address and phone number Thyroid Stim Hormone (TSH)Or dered By: Flight Reservations Manager on 05-14-2016 Thyrotropin Qn 9.32 {uIU/mL} Abnormal 0.358-3.74 Compreh ensive Internal Medicine Work Phone: Comment on above: PLEASE ADD FOLATES T O BLOOD FROM THIS MORNINGIs Patient Taking Vitamins or Folic Acid Supplements? [facility] [address] [place], [place], [phone] Vitamin B62Zirzqce By: Goldene m Electroencephalographic Technologist on 05-14-2016 Cobalamin (Vitamin B12) mass conc 1240 pg/mL Abnormal 211-911 Comprehensive Internal Medicine Work Phone: Comment on above: [facility] [address] [place], [place], [phone] Vitamin D,25 HydroxyOrdered By: Flight Reservations Manager on 05-14-2016 Vitamin D 25-OH 33.8 ng/mL Normal Comprehen sive Internal Medicine Work Phone: Comment on above: Vitamin D 25(OH) Sta tus Range Deficiency <20 ng/mL (50nmol/L) Insuffciency 20 - 30 ng/mL (50 - 75 nmol/L) Sufficiency 30 - 100 ng/mL (75 - 250 nmol/L) Toxicity >100 ng/mL (>250 nmol/L) Vitamin D,25 Hydroxy 33.8 ng/mL Normal Comp rehensive Internal Medicine Work Phone: Comment on above: Vitamin D 25(OH) Sta tus Range Deficiency <20 ng/mL (50nmol/L) Insuffciency 20 - 30 ng/mL (50 - 75 nmol/L) Sufficiency 30 - 100 ng/mL (75 - 250 nmol/L) Toxicity >100 ng/mL (>250 nmol/L) [facility] [address] [place], [address] Sputum Culture ([id number])Ordere d By: Flight Reservations Manager on 03-31-2016 Bacteria identified Cx Nom (Sput) Final report Normal Comprehensive Internal Medicine Work Phone: Comment on above: PATIENT NOT FASTINGP ERFORMED BY: CB [facility] [address] RoadDublin [place] [id number] Information: [id number] Bacteria identified Cx Nom (Unsp spec) RRF Normal Comprehensive Internal Medicine Work Phone: Comment on above: Routine respiratory tomas PATIENT NOT FASTINGP ERFORMED BY: CB [facility] R[address] RoadDublin [place] [id number] Information: [id number] CULTURE, SPUTUM ([id number])Order ed By: Flight Reservations Manager on 12-09-2015 Bacteria identified Cx Nom (Sput) Final report Normal Comprehensive Internal Medicine Work Phone: Comment on above: PATIENT NOT FASTINGP ERFORMED BY: CB [facility] [address] RoadDublin [place] [id number] Information: SRC:[facility] [id number] Bacteria identified Cx Nom (Unsp spec) RRF Normal Comprehensive Internal Medicine Work Phone: Comment on above: Routine respiratory tomas PATIENT NOT FASTINGP ERFORMED BY: CB [facility] [address]bl[address] [place] [id number] Information: SRC:[facility] [id number] CBC W/Diff, AutomatedOrdered By: Flight Reservations Manager on 01-29-2015 Absolute Lymph 1.93 {X10_3/ul} Normal 0.83-4.51 Compr ehensive Internal Medicine Work Phone: Absolute Neut 4.0 {X10_3/uL} Normal 2.0-7.7 Compreh ensive Internal Medicine Work Phone: Comment on above: Test performed at:[facility] [address] [place] [address] Basophils/100 WBC (Bld) 0.1 % Normal 0-1 C omprehensive Internal Medicine Work Phone: Comment on above: Test performed at:[facility] [address] [place] [address] Basophils/100 WBC Auto (Bld) 0.1 % Normal 0-1 Comprehensive Internal Medicine Work Phone: Eosinophils/100 WBC (Bld) 6.3 % Abnormal 0-5 Comprehensive Internal Medicine Work Phone: Comment on above: Test performed at:[facility] [address] [place] [address] Eosinophils/100 WBC Auto (Bld) 6.3 % Abnormal 0-5 Comprehensive Internal Medicine Work Phone: Erythrocyte distribution width (RBC) [Ratio] 13.8 % Normal 11.6-14.6 Comprehensive [facility] Medicine Work Phone: Comment on above: Test performed at:[facility] [address] [place] [address] Erythrocyte distribution width Auto Ratio (RBC) 13.8 % Normal 11.6-14.6 Comprehensive [facility] Medicine Work Phone: Hematocrit (Bld) [Volume fraction] 40.9 % Normal 37-47 Comprehensive Internal Medicine Work Phone: Comment on above: Test performed at:[facility] [address] [place] [address] Hematocrit Auto Volume Fraction (Bld) 40.9 % Normal 37-47 [facility] Internal Medicine Work Phone: Hemoglobin mass conc (Bld) 13.6 g/dL Normal 12.0-15.0 [facility] Work Phone: Comment on above: Test performed at:[facility] [address] [place] [address] IM GRAN % 0.100 % Normal 0.0-0.9 Comprehensive [facility] Work Phone: Comment on above: IG% - Immature Granu locytes (promyelocytes, myelocytes andmetamyelocytes) > 1% indicates that a LEFT SHIFT is Present. Test performed at:[facility] [address] [place] [address] Lymphocytes (Bld) [#/Vol] 1.93 {X10_3/ul} Normal 0.83-4.51 Comprehensive Internal Medicine Work Phone: Comment on above: Test performed at:[facility] [address] [place] [address] Lymphocytes/100 WBC (Bld) 27.8 % Normal 19-41 Comprehensive Internal Medicine Work Phone: Comment on above: Test performed at:[facility] [address] [place] [address] Lymphocytes/100 WBC Auto (Bld) 27.8 % Normal 19-41 Comprehensive Internal Medicine Work Phone: MCH (RBC) [Entitic mass] 28.3 pg Normal 27.0-32.0 [facility] Medicine Work Phone: Comment on above: Test performed at:[facility] [address] [place] [address] MCH Auto Entitic mass (RBC) 28.3 pg Normal 27.0-32.0 Comprehensive Internal Medicine Work Phone: MCHC (RBC) [Mass/Vol] 33.3 {g/gl} Normal 32-36 [facility] Internal [facility] Work Phone: Comment on above: Test performed at:[facility] [address] [place] [address] MCHC Auto mass conc (RBC) 33.3 {g/gl} Normal 32-36 Comprehensive Internal Medicine Work Phone: MCV (RBC) [Entitic vol] 85.0 fL Normal 81-99 C omprehensive Internal Medicine Work Phone: Comment on above: Test performed at:[facility] [address] [place] [address] MCV Auto Entitic volume (RBC) 85.0 fL Normal 81-99 Comprehensive Internal Medicine Work Phone: Monocytes/100 WBC Auto (Bld) 8.1 % Normal 0-10 Comprehensive Internal Medicine Work Phone: Comment on above: Test performed at:[facility] [address] [place] [address] Monocytes/100 WBC Auto (Bld) 8.1 % Normal 0-10 Comprehensive Internal Medicine Work Phone: Neutrophils/100 WBC (Bld) 57.6 % Normal 47-70 Comprehensive Internal Medicine Work Phone: Comment on above: Test performed at:[facility] [address] [place] [address] Neutrophils/100 WBC Auto (Bld) 57.6 % Normal 47-70 Comprehensive Internal Medicine Work Phone: Platelet mean volume (Bld) [Entitic vol] 9.3 fL Normal 6.2-12.0 Comprehensiv e Internal Medicine Work Phone: Comment on above: Test performed at:[facility] [address] [place] [address] Platelet mean volume Auto Entitic volume (Bld) 9.3 fL Normal 6.2-12.0 Comprehensive Internal Medicine Work Phone: Platelets (Bld) [#/Vol] 457 10*3/uL Abnormal 150-450 Comprehensive Internal Medicine Work Phone: Comment on above: Test performed at:[facility] [address] [place] [address] Platelets Auto #/vol (Bld) 457 10*3/uL Abnormal 150-450 Comprehensive Internal Medicine Work Phone: RBC (Bld) [#/Vol] 4.81 {M/mm3} Normal 4.2-5.4 [facility] Internal Medicine Work Phone: Comment on above: Test performed at:[facility] [address] [place] [address](123) RBC Auto #/vol (Bld) 4.81 {M/mm3} Normal 4.2-5.4 Co [facility] Internal Medicine Work Phone: RDW SD 42.7 fL Normal 35.1-43.9 Comprehensive Internal Medicine Work Phone: Comment on above: Test performed at:[facility] [address] [facility] [place] [address] WBC (Bld) [#/Vol] 7.0 10*3/uL Normal 4.4-11.0 [facility] Internal Medicine Work Phone: Comment on above: Test performed at:[facility] [address] [place] [address] WBC Auto #/vol (Bld) 7.0 10*3/uL Normal 4.4-11.0 [facility] Work Phone: CBC W/Diff, Automated 0.100 % Normal 0.0-0.9 [facility] Work Phone: Comment on above: IG% - Immature Granu locytes (promyelocytes, myelocytes andmetamyelocytes) > 1% indicates that a LEFT SHIFT is Present. CBC W/Diff, Automated 4.0 {X10_3/uL} Normal 2.0-7.7 [facility] Internal Medicine Work Phone: CBC W/Diff, Automated 1.93 {X10_3/ul} Normal 0.83-4.51 Comprehensive Internal Medicine Work Phone: CBC W/Diff, Automated 42.7 fL Normal 35.1-43.9 [facility] Work Phone: Comprehensive Metabolic Prof ilOrdered By: Flight Reservations Manager on 01-29-2015 Comprehensive metabolic 2000 panel 23.0 mmol/L Normal 21.0-32.0 Comprehensive Internal Medicine Work Phone: Comment on above: Test performed at:[facility] [address] [place] [address] Comprehensive metabolic 2000 panel 106 mmol/L Normal 98-107 Comprehensive Internal Medicine Work Phone: Comment on above: Test performed at:[facility] [address] [place] [address] Comprehensive metabolic 2000 panel 88 U/L Normal 50-136 Comprehensive Internal Medicine Work Phone: Comment on above: Test performed at:[facility] [address] [place] [address] Comprehensive metabolic 2000 panel 3.4 g/dL Normal 2.7-4.2 Comprehensive Internal Medicine Work Phone: Comment on above: Test performed at:[facility] [address] [place] [address] Comprehensive metabolic 2000 panel 3.9 g/dL Normal 3.4-5.0 Comprehensive Internal Medicine Work Phone: Comment on above: Test performed at:[facility] [address] [place] [address] Comprehensive metabolic 2000 panel 7.3 g/dL Normal 6.4-8.2 Comprehensive Internal Medicine Work Phone: Comment on above: Test performed at:[facility] [address] [place] [address] Comprehensive metabolic 2000 panel 16.7 {RATIO} Normal 10-20 Comprehensive Internal Medicine Work Phone: Comment on above: Test performed at:[facility] [address] [place] [address] Comprehensive metabolic 2000 panel 130 mL/min Normal Comprehensive Internal Medicine Work Phone: Comment on above: Test performed at:[facility] [address] [place] [address] Comprehensive metabolic 2000 panel 107 mL/min Normal Comprehensive Internal Medicine Work Phone: Comment on above: [facility] [facility] Qqxourbvmn[address] [place] [address] Comprehensive metabolic 2000 panel 0.6 mg/dL Normal 0.6-1.0 [facility] Work Phone: Comment on above: Test performed at:[facility] [address] [place] [address] Comprehensive metabolic 2000 panel 10 mg/dL Normal 7-18 [facility] Work Phone: Comment on above: Test performed at:[facility] Ahkfbjniwd[address] [place] [address] Comprehensive metabolic 2000 panel 97 mg/dL Normal 70-110 [facility] Work Phone: Comment on above: Test performed at:[facility] Xzxxaezgxh47[address] [place] [address] Comprehensive metabolic 2000 panel 9.1 mg/dL Normal 8.5-10.1 [facility] Work Phone: Comment on above: Test performed at:[facility] Jqhzrjxoua[address] [place] [address] Comprehensive metabolic 2000 panel 3.7 mmol/L Normal 3.5-5.1 [facility] Work Phone: Comment on above: Test performed at:[facility] [address] [place] [address] Comprehensive metabolic 2000 panel 10 1 Normal 5-15 [facility] Work Phone: Comment on above: Test performed at:[facility] [address] [place] [address] Comprehensive metabolic 2000 panel 139 mmol/L Normal 136-145 [facility] Work Phone: Comment on above: Test performed at:[facility] [address] [place], [place] [id number] Comprehensive metabolic 2000 panel 0.40 mg/dL Normal 0.00-4.00 [facility] Work Phone: Comment on above: Test performed at:[facility] Bdwlduxhvc[address] [place], [place] [id number] Comprehensive metabolic 2000 panel 26 U/L Normal 15-37 [facility] Work Phone: Comment on above: Test performed at:[facility] [address] [place] [address] Comprehensive metabolic 2000 panel 1.1 {RATIO} Normal 0.9-2.4 [facility] Work Phone: Comment on above: Test performed at:[facility] [address] [place] [address] Comprehensive metabolic 2000 panel 39 U/L Normal 12-78 [facility] Work Phone: Comment on above: Test performed at:[facility] Yrfbsnkbvy4[address] [place] [address] Lipid ProfileOrdered By: Saúl tem Electroencephalographic Technologist on 01-29-2015 Cholesterol in HDL mass conc 58 mg/dL Normal [facility] Work Phone: Comment on above: Reference Range HDL <40 mg/dL Low HDL Cholesterol HDL >or= 60 mg/dL High HDL Cholesterol Test performed at:[facility] Nog[address]jehde[address] [place] [address] Cholesterol in LDL mass conc 97 mg/dL Normal 0-130 [facility] Work Phone: Cholesterol in LDL mass conc 97 mg/dL Normal 0-130 [facility] Work Phone: Comment on above: Test performed at:[facility] Eufxybvuke[address] [place] [address] Cholesterol in VLDL mass conc 16 mg/dL Normal 5-40 [facility] Work Phone: Comment on above: Test performed at:[facility] Yqxdezhdco[address] [place], [place] [id number] Cholesterol mass conc 171 mg/dL Normal Com prehensive Internal Medicine Work Phone: Comment on above: <200 mg/dL Desirable 200-240 mg/dL Borderline >240 mg/dL High Risk Test performed at:[facility] Wnqmfjeqwb340[address] [place], [place] [id number] Triglyceride mass conc 82 mg/dL Normal 0-199 Co mprehensive Internal Medicine Work Phone: Comment on above: Serum Triglycerides Reference Interval Normal <150 mg/dL Borderline high 150 - 199 mg/dL High 200 - 499 mg/dL Very High > or = 500 mg/dL Test performed at:[facility] Dkukvvoprx5[address] [place] [address] Lipid Profile 16 mg/dL Normal 5-40 Comprehensi ve Internal Medicine Work Phone: Urinalysis, CompleteOrdered By: Flight Reservations Manager on 01-29-2015 BILIRUBIN URINE Negative Normal Comprehen sive Internal Medicine Work Phone: Comment on above: How was Urine Obtain ed? CLEAN CATCHTest performed at:[facility] Zfkkmfaofv9[address] [place] [address] CLARITY Sl. Cloudy Normal [facility] Work Phone: Comment on above: How was Urine Obtain ed? CLEAN CATCHTest performed at:[facility] Xydiixrsyz4632 [place] [address] COLOR Yellow Normal [facility] Work Phone: Comment on above: How was Urine Obtain ed? CLEAN CATCHTest performed at:[facility] Hdfanvbiup62[address] [place], [place] [id number] LEUK ESTERASE 25 /ul Abnormal Comprehensi ve Internal Medicine Work Phone: Comment on above: How was Urine Obtain ed? CLEAN CATCHTest performed at:[facility] Dijsifzonu[address] [place], [place] [id number] MUCUS, URINE 0 SEEN Normal Comprehensiv e Internal Medicine Work Phone: Comment on above: How was Urine Obtain ed? CLEAN CATCHTest performed at:[facility] Eyliqzdxln3523 [place] [address] pH UR 5.0 1 Normal 5.0 - 8.0 [facility] Work Phone: Comment on above: How was Urine Obtain ed? CLEAN CATCHTest performed at:[facility] Rrpakyavkr9930 [place] [address] RBC (U) [#/Vol] 0 SEEN Normal 0-5 Comprehen [facility] Internal Medicine Work Phone: Comment on above: How was Urine Obtain ed? CLEAN CATCHTest performed at:[facility] Hfjmtiodqu9854 [place] [address] RBC Test strip #/vol (U) 0 SEEN Normal 0-5 [facility] Work Phone: SP.GR. DIPSTX 1.015 1 Normal 1.002-1.03 0 [facility] Work Phone: Comment on above: How was Urine Obtain ed? CLEAN CATCHTest performed at:[facility] Xzeonodwlh[address] [place] [address] SQUAM EPI 0-5 SEEN Normal 5-10 [facility] Work Phone: Comment on above: How was Urine Obtain ed? CLEAN CATCHTest performed at:[facility] Riyomklksw[address] [place] [address] UROBILI Normal Normal [facility] Work Phone: Comment on above: How was Urine Obtain ed? CLEAN CATCHTest performed at:[facility] [address] [place] [address] CBC, Platelets & Auto Diff ( [id number])Ordered By: Flight Reservations Manager on 06-14-2014 Basophils (Bld) [#/Vol] 0.0 {x10E3/uL} Normal 0.0-0.2 [facility] Work Phone: Comment on above: PATIENT WAS FASTINGP ERFORMED BY: CB [facility] Qxkgdg4687 [facility] [id number] Information: [id number] Basophils (Bld) [#/Vol] 0.0 10*3/uL Normal 0.0-0.2 [facility]; [facility] Work Phone: Comment on above: PATIENT WAS FASTINGP ERFORMED BY: [address] [id number] Information: [id number] Basophils Auto #/vol (Bld) 0.0 {x10E3/uL} Normal 0.0-0.2 [facility] Work Phone: Basophils/100 WBC (Bld) 0 % Normal C omprehensive Internal Medicine Work Phone: Comment on above: PATIENT WAS FASTINGP ERFORMED BY: [address] [id number] Information: [id number] Basophils/100 WBC Auto (Bld) 0 % Normal [facility] Work Phone: Eosinophils (Bld) [#/Vol] 0.6 {x10E3/uL} Abnormal 0.0-0.4 [facility] Work Phone: Comment on above: PATIENT WAS FASTINGP ERFORMED BY: [address] [id number] Information: [id number] Eosinophils (Bld) [#/Vol] 0.6 10*3/uL Abnormal 0.0-0.4 [facility]; [facility] Work Phone: Comment on above: PATIENT WAS FASTINGP ERFORMED BY: [address] [id number] Information: [id number] Eosinophils Auto #/vol (Bld) 0.6 {x10E3/uL} Abnormal 0.0-0.4 [facility] Work Phone: Eosinophils/100 WBC (Bld) 7 % Normal [facility] Work Phone: Comment on above: PATIENT WAS FASTINGP ERFORMED BY: [place] [address]3670 [facility] [id number] Information: [id number] Eosinophils/100 WBC Auto (Bld) 7 % Normal [facility] Work Phone: Erythrocyte distribution width (RBC) [Ratio] 13.8 % Normal 12.3-15.4 [facility] Work Phone: Comment on above: PATIENT WAS FASTINGP ERFORMED BY: [place] 7103670 [facility] [id number] Information: [id number] Erythrocyte distribution width Auto Ratio (RBC) 13.8 % Normal 12.3-15.4 [facility] Work Phone: Hematocrit (Bld) [Volume fraction] 41.1 % Normal 34.0-46.6 [facility] Work Phone: Comment on above: PATIENT WAS FASTINGP ERFORMED BY: [address] [id number] Information: [id number] Hematocrit Auto Volume Fraction (Bld) 41.1 % Normal 34.0-46.6 [facility] Work Phone: Hemoglobin mass conc (Bld) 13.2 g/dL Normal 11.1-15.9 [facility] Work Phone: Comment on above: PATIENT WAS FASTINGP ERFORMED BY: [place] 7103670 [facility] [id number] Information: [id number] Immature granulocytes #/vol (Bld) 0.0 {x10E3/uL} Normal 0.0-0.1 [facility] Work Phone: Comment on above: PATIENT WAS FASTINGP ERFORMED BY: [place] 7103670 [facility] [id number] Information: [id number] Immature granulocytes (Bld) [#/Vol] 0.0 10*3/uL Normal 0.0-0.1 [facility]; [facility] Work Phone: Comment on above: PATIENT WAS FASTINGP ERFORMED BY: RUTH [facility] Adgdua1775 [facility] [id number] Information: [id number] Immature granulocytes/100 WBC (Bld) 0 % Normal [facility] Work Phone: Comment on above: PATIENT WAS FASTINGP ERFORMED BY: [address] [id number] Information: [id number] Lymphocytes (Bld) [#/Vol] 2.3 {x10E3/uL} Normal 0.7-3.1 [facility] Work Phone: Comment on above: PATIENT WAS FASTINGP ERFORMED BY: [address] [id number] Information: [id number] Lymphocytes (Bld) [#/Vol] 2.3 10*3/uL Normal 0.7-3.1 [facility]; [facility] Work Phone: Comment on above: PATIENT WAS FASTINGP ERFORMED BY: [address] [id number] Information: [id number] Lymphocytes Auto #/vol (Bld) 2.3 {x10E3/uL} Normal 0.7-3.1 [facility] Work Phone: Lymphocytes/100 WBC (Bld) 29 % Normal [facility] Work Phone: Comment on above: PATIENT WAS FASTINGP ERFORMED BY: [address] [id number] Information: [id number] Lymphocytes/100 WBC Auto (Bld) 29 % Normal [facility] Work Phone: MCH (RBC) [Entitic mass] 27.8 pg Normal 26.6-33.0 [facility] Work Phone: Comment on above: PATIENT WAS FASTINGP ERFORMED BY: [facility]6370 [facility] [id number] Information: [id number] MCH Auto Entitic mass (RBC) 27.8 pg Normal 26.6-33.0 [facility] Internal Medicine Work Phone: MCHC (RBC) [Mass/Vol] 32.1 g/dL Normal 31.5-35.7 [facility] Internal Medicine Work Phone: Comment on above: PATIENT WAS FASTINGP ERFORMED BY: [place] 7103670 [facility] [id number] Information: [id number] MCHC Auto mass conc (RBC) 32.1 g/dL Normal 31.5-35.7 [facility] Internal Medicine Work Phone: MCV (RBC) [Entitic vol] 87 fL Normal 79-97 [facility] Internal Medicine Work Phone: Comment on above: PATIENT WAS FASTINGP ERFORMED BY: [place] 7103670 [facility] [id number] Information: [id number] MCV Auto Entitic volume (RBC) 87 fL Normal 79-97 [facility] Internal Medicine Work Phone: Monocytes (Bld) [#/Vol] 0.5 {x10E3/uL} Normal 0.1-0.9 [facility] Work Phone: Comment on above: PATIENT WAS FASTINGP ERFORMED BY: [place] [address]3670 [facility] [id number] Information: [id number] Monocytes (Bld) [#/Vol] 0.5 10*3/uL Normal 0.1-0.9 [facility] Internal Medicine; [facility] Work Phone: Comment on above: PATIENT WAS FASTINGP ERFORMED BY: [place] 7103670 [facility] [id number] Information: [id number] Monocytes Auto #/vol (Bld) 0.5 {x10E3/uL} Normal 0.1-0.9 [facility] Work Phone: Monocytes/100 WBC (Bld) 6 % Normal C omprehensive Internal Medicine Work Phone: Comment on above: PATIENT WAS FASTINGP ERFORMED BY: RUTH [facility]6370 [facility] [id number] Information: [id number] Monocytes/100 WBC Auto (Bld) 6 % Normal [facility] Work Phone: Neutrophils (Bld) [#/Vol] 4.6 {x10E3/uL} Normal 1.4-7.0 [facility] Work Phone: Comment on above: PATIENT WAS FASTINGP ERFORMED BY: RUTH [facility] Xdhkez0195 [facility] [id number] Information: [id number] Neutrophils (Bld) [#/Vol] 4.6 10*3/uL Normal 1.4-7.0 [facility]; [facility] Work Phone: Comment on above: PATIENT WAS FASTINGP ERFORMED BY: RUTH [facility] Rjpxcc6271 [facility] [id number] Information: [id number] Neutrophils Auto #/vol (Bld) 4.6 {x10E3/uL} Normal 1.4-7.0 [facility] Work Phone: Neutrophils/100 WBC (Bld) 58 % Normal [facility] Work Phone: Comment on above: PATIENT WAS FASTINGP ERFORMED BY: [facility]6370 [facility] [id number] Information: [id number] Neutrophils/100 WBC Auto (Bld) 58 % Normal [facility] Work Phone: Platelets (Bld) [#/Vol] 313 {x10E3/uL} Normal 150-379 [facility] Work Phone: Comment on above: PATIENT WAS FASTINGP ERFORMED BY: RUTH Mackenzie Jqyfgw2489 [facility] [id number] Information: [id number] Platelets (Bld) [#/Vol] 313 10*3/uL Normal 150-379 [facility]; [facility] Work Phone: Comment on above: PATIENT WAS FASTINGP ERFORMED BY: RUTH [facility] Wctjey6370 [facility] [id number] Information: [id number] Platelets Auto #/vol (Bld) 313 {x10E3/uL} Normal 150-379 [facility] Work Phone: RBC (Bld) [#/Vol] 4.75 {x10E6/uL} Normal 3.77-5.28 [facility] Internal Medicine Work Phone: Comment on above: PATIENT WAS FASTINGP ERFORMED BY: RUTH [facility] Lhfksh2657 [facility] [id number] Information: [id number] RBC (Bld) [#/Vol] 4.75 10*6/uL Normal 3.77-5.28 [facility] Internal Medicine; [facility] Work Phone: Comment on above: PATIENT WAS FASTINGP ERFORMED BY: RUTH Castillo Ueswkq2406 [facility] [id number] Information: [id number] RBC Auto #/vol (Bld) 4.75 {x10E6/uL} Normal 3.77-5.28 [facility] Work Phone: WBC (Bld) [#/Vol] 8.0 {x10E3/uL} Normal 3.4-10.8 [facility] Internal Medicine Work Phone: Comment on above: PATIENT WAS FASTINGP ERFORMED BY: RUTH [facility] Pzznlg4367 [facility] [id number] Information: [id number] WBC (Bld) [#/Vol] 8.0 10*3/uL Normal 3.4-10.8 Compre hensive Internal Medicine; [facility] Work Phone: Comment on above: PATIENT WAS FASTINGP ERFORMED BY: RUTH Jonathan Padron6370 [facility] [id number] Information: [id number] WBC Auto #/vol (Bld) 8.0 {x10E3/uL} Normal 3.4-10.8 [facility] Work Phone: Lipid Panel ([id number])Ordered B y: Flight Reservations Manager on 06-14-2014 Cholesterol in HDL mass conc 52 mg/dL Normal [facility] Work Phone: Comment on above: According to ATP-III Guidelines, HDL-C >59 mg/dL is considered anegative risk factor for CHD. PATIENT WAS FASTINGP ERFORMED BY: RUTH [employer] Byeirg0954 Dean LeapfunderUNC Hospitals [facility] [id number] Cholesterol in LDL mass conc 97 mg/dL Normal 0-99 [facility] Work Phone: Comment on above: PATIENT WAS FASTINGP ERFORMED BY: RUTH [facility] Uhnkrq8273 [facility] [id number] Cholesterol in LDL/Cholesterol in HDL mass ratio 1.9 {ratio_units} Normal 0.0-3.2 [facility] Work Phone: Comment on above: LDL/HDL Ratio Men Wo men 1/2 Avg.Risk 1.0 1.5 Avg.Risk 3.6 3.2 2X Avg.Risk 6.2 5.0 3X Avg.Risk 8.0 6.1 PATIENT WAS FASTINGP ERFORMED BY: RUTH [facility] Xvaqzp2947 [facility] [id number] Cholesterol in VLDL mass conc 16 mg/dL Normal 5-40 [facility] Work Phone: Comment on above: PATIENT WAS FASTINGP ERFORMED BY: RUTH [facility] Wqnhpd3599 [facility] [id number] Cholesterol mass conc 165 mg/dL Normal 100-199 [facility] prehensive Internal Medicine Work Phone: Comment on above: PATIENT WAS FASTINGP ERFORMED BY: RUTH [facility] Jipowq1378 Dean RoadDublin [place] [id number] Triglyceride mass conc 81 mg/dL Normal 0-149 Co mprensive Internal Medicine Work Phone: Comment on above: PATIENT WAS FASTINGP ERFORMED BY: RUTH [facility] Rhjilh4611 Dean RoadDublin [place] [id number] MICROALBUMINOrdered By: Syst em Electroencephalographic Technologist on 06-14-2014 Albumin DL <= 20 mg/L mass conc (U) 6.0 ug/mL Normal 0.0-17.0 [facility] Work Phone: Comment on above: PATIENT WAS FASTINGP ERFORMED BY: RUTH [facility] Gdtbjc3598 Dean RoadDublin [place] [id number] Albumin/Creatinine mass ratio (U) 3.6 {mg/g_creat} Normal 0.0-30.0 [facility] Work Phone: Comment on above: PATIENT WAS FASTINGP ERFORMED BY: RUTH [facility] Eydpcb4046 Dean RoadDublin [place] [id number] Creatinine mass conc (U) 168.1 mg/dL Normal 15.0-278.0 [facility] Work Phone: Comment on above: PATIENT WAS FASTINGP ERFORMED BY: RUTH [facility] Hjikpm9713 Dean RoadDublin [place] [id number] Metabolic Panel, Comprehensi ve ([id number])Ordered By: Flight Reservations Manager on 06-14-2014 Albumin mass conc 4.2 g/dL Normal 3.6-4.8 Compreh ensive Internal Medicine Work Phone: Comment on above: PATIENT WAS FASTINGP ERFORMED BY: [facility] Laxgor8735 [address] RoadDublin [place] [id number] Albumin/Globulin mass ratio 2.1 {ratio} Normal 1.1-2.5 [facility] Work Phone: Comment on above: PATIENT WAS FASTINGP ERFORMED BY: [facility] Cwlzdp6830 [address] RoadDublin [place] [id number] ALP [Catalytic activity/Vol] 86 U/L Normal 39-117 [facility]; [facility] Internal Medicine Work Phone: Comment on above: PATIENT WAS FASTINGP ERFORMED BY: RUTH LabCohu PadronJpqmen4654 Dean RoadDublin [place] [id number] ALP enzyme act/vol 86 [iU]/L Normal 39-117 [facility] Internal Medicine Work Phone: Comment on above: PATIENT WAS FASTINGP ERFORMED BY: RUTH [facility] Buafgr2759 [address] RoadDublin [place] [id number] ALT [Catalytic activity/Vol] 19 U/L Normal 0-32 [facility]; [facility] Internal Medicine Work Phone: Comment on above: PATIENT WAS FASTINGP ERFORMED BY: RUTH Mackenzie Qermox6208 [address] RoadDublin [place] [id number] ALT enzyme act/vol 19 [iU]/L Normal 0-32 [facility] Internal Medicine Work Phone: Comment on above: PATIENT WAS FASTINGP ERFORMED BY: RUTH Mackenzie Urfjmu8782 [address] RoadDublin [place] [id number] AST [Catalytic activity/Vol] 20 U/L Normal 0-40 [facility]; [facility] Internal Medicine Work Phone: Comment on above: PATIENT WAS FASTINGP ERFORMED BY: RUTH Stoddardlin6370 [address] RoadDublin [place] [id number] AST enzyme act/vol 20 [iU]/L Normal 0-40 [facility] Internal Medicine Work Phone: Comment on above: PATIENT WAS FASTINGP ERFORMED BY: [facility] Mjoxcd1209 [address] RoadDublin [place] [id number] Bilirubin mass conc 0.4 mg/dL Normal 0.0-1.2 [facility] Internal Medicine Work Phone: Comment on above: PATIENT WAS FASTINGP ERFORMED BY: RUTH [facility] Sjdpqz9589 [address] RoadDublin [place] [id number] Calcium mass conc 9.5 mg/dL Normal 8.6-10.2 [facility] Internal Medicine Work Phone: Comment on above: PATIENT WAS FASTINGP ERFORMED BY: CB [facility] Krhghr1371 Dean RoadDublin [place] [id number] Chloride molar conc 104 mmol/L Normal 97-108 Compr ehensive Internal Medicine Work Phone: Comment on above: PATIENT WAS FASTINGP ERFORMED BY: CB [facility] Xytlsy8168 [address] RoadDublin [place] [id number] CO2 molar conc 24 mmol/L Normal 18-29 Comprehens rudolph Internal Medicine Work Phone: Comment on above: PATIENT WAS FASTINGP ERFORMED BY: CB [facility] Dhptnq3096 [address] RoadDublin [place] [id number] Creatinine mass conc 0.61 mg/dL Normal 0.57-1.[address] [facility] Internal [facility] Work Phone: Comment on above: PATIENT WAS FASTINGP ERFORMED BY: CB [facility] Tkvcdv2490 [address] RoadDublin [place] [id number] GFR/1.73 sq M predicted among blacks CKD-EPI vol rate/area (S/P/Bld) 111 mL/min/1.73 Normal Comprehe [facility] Internal Medicine Work Phone: Comment on above: PATIENT WAS FASTINGP ERFORMED BY: CB [facility] Skiqju9395 [address] RoadDublin [place] [id number] GFR/1.73 sq M predicted among non-blacks CKD-EPI vol rate/area (S/P/Bld) 96 mL/min/1.73 Normal Comprehensive Internal Medicine Work Phone: Comment on above: PATIENT WAS FASTINGP ERFORMED BY: CB [facility] Tvfpnr8914 [address] RoadDublin [place] [id number] Globulin (S) [Mass/Vol] 2.0 g/dL Normal 1.5-4.5 C ompst. anthony's hospitalensive Internal Medicine Work Phone: Comment on above: PATIENT WAS FASTINGP ERFORMED BY: CB [facility] Welnmr2180 [address] RoadDublin [place] [id number] Globulin Calculated mass conc (S) 2.0 g/dL Normal 1.5-4.5 [facility] Work Phone: Glucose mass conc 89 mg/dL Normal 65-99 Compreh ensive Internal Medicine Work Phone: Comment on above: PATIENT WAS FASTINGP ERFORMED BY: RUTH LabCohu StoddardJpvbyg3891 [address] [facility]in [place] [id number] Potassium molar conc 4.2 mmol/L Normal 3.5-5.2 Comp rehensive Internal Medicine Work Phone: Comment on above: PATIENT WAS FASTINGP ERFORMED BY: RUTH [facility] Crdzzz9279 [address] [facility]in [place] [id number] Protein mass conc 6.2 g/dL Normal 6.0-8.5 Compreh ensive Internal Medicine Work Phone: Comment on above: PATIENT WAS FASTINGP ERFORMED BY: RUTH [facility] Qotkby0743 [address] [facility] [id number] Sodium molar conc 143 mmol/L Normal 134-144 Compreh ensive Internal Medicine Work Phone: Comment on above: PATIENT WAS FASTINGP ERFORMED BY: [facility] Iojtzl7198 [facility] [id number] Urea nitrogen mass conc 15 mg/dL Normal 8-27 C omprehensive Internal Medicine Work Phone: Comment on above: PATIENT WAS FASTINGP ERFORMED BY: LabPawel Pmpqam2069 [facility] [id number] Urea nitrogen/Creatinine mass ratio 25 mg/mg Normal 11-26 [facility] Work Phone: Comment on above: PATIENT WAS FASTINGP ERFORMED BY: [facility] Betnac1552 [address] [facility] [id number] TSH ([id number])Ordered By: Syste m Electroencephalographic Technologist on 06-14-2014 Thyrotropin Qn 4.310 {uIU/mL} Normal 0.450-4.50 0 [facility] Work Phone: Comment on above: PATIENT WAS FASTINGP ERFORMED BY: [facility] [id number] [facility] [place] [id number] URINALYSIS ([id number])Ordered By : Flight Reservations Manager on 06-14-2014 Appearance Nom (U) Clear Normal Compre hensive Internal Medicine Work Phone: Comment on above: PATIENT WAS FASTINGP ERFORMED BY: RUTH Padron[address]Dublin [place] [id number] Bilirubin Ql (U) Negative Normal Comprehe nsive Internal Medicine Work Phone: Comment on above: PATIENT WAS FASTINGP ERFORMED BY: RUTH Padron[address]Dublin [place] [id number] Bilirubin Ql (U) Negative Normal Comprehe nsive [facility] Medicine; [facility] Work Phone: Comment on above: PATIENT WAS FASTINGP ERFORMED BY: RUTH Padron[address]Dublin [place] [id number] Color Nom (U) Yellow Normal Comprehensi ve Internal Medicine Work Phone: Comment on above: PATIENT WAS FASTINGP ERFORMED BY: RUTH Padron[address] [place] [id number] Glucose Ql (U) Negative Normal Comprehens rudolph [facility] Medicine Work Phone: Comment on above: PATIENT WAS FASTINGP ERFORMED BY: RUTH Padron[address] [place] [id number] Glucose Ql (U) Negative Normal Comprehens [facility]; [facility] Work Phone: Comment on above: PATIENT WAS FASTINGP ERFORMED BY: RUTH Padron[address] [place] [id number] Hemoglobin Ql (U) Negative Normal Compreh ensive Internal Medicine Work Phone: Comment on above: PATIENT WAS FASTINGP ERFORMED BY: RUTH Stoddardlin[address] [place] [id number] Hemoglobin Ql (U) Negative Normal Compreh ensive Internal Medicine; [facility] Work Phone: Comment on above: PATIENT WAS FASTINGP ERFORMED BY: RUTH Stoddardlin[address] [place] [id number] Hemoglobin Test strip Ql (U) Negative Normal [facility] Work Phone: Ketones Ql (U) Negative Normal Comprehens [facility]olph [facility] Work Phone: Comment on above: PATIENT WAS FASTINGP ERFORMED BY: RUTH Padron[address] [facility] [id number] Ketones Ql (U) Negative Normal Comprehens [facility]; [facility] Work Phone: Comment on above: PATIENT WAS FASTINGP ERFORMED BY: RUTH Padron[address] [facility] [id number] Leukocyte esterase Test strip Ql (U) Negative Normal [facility] Work Phone: Comment on above: PATIENT WAS FASTINGP ERFORMED BY: RUTH Padron[address] [facility] [id number] Leukocyte esterase Test strip Ql (U) Negative Normal [facility]; [facility] Work Phone: Comment on above: PATIENT WAS FASTINGP ERFORMED BY: RUTH Padron6[address] [facility] [id number] Microscopic observation LM Nom (Urine sed) MICNIP Normal [facility] Work Phone: Comment on above: Microscopic not al cated and not performed. PATIENT WAS FASTINGP ERFORMED BY: RUTH Stoddardlin6[address] [facility] [id number] Nitrite Ql (U) Negative Normal Comprehens [facility]olph [facility] Work Phone: Comment on above: PATIENT WAS FASTINGP ERFORMED BY: RUTH Stoddardlin[address] [facility] [id number] Nitrite Ql (U) Negative Normal Comprehens [facility]olph [facility]; [facility] Work Phone: Comment on above: PATIENT WAS FASTINGP ERFORMED BY: RUTH Stoddardlin[address] [facility] [id number] Nitrite Test strip Ql (U) Negative Normal [facility] Work Phone: pH (U) 6.0 [pH] Normal 5.0-7.5 [facility] Work Phone: Comment on above: PATIENT WAS FASTINGP ERFORMED BY: CB [facility] [id number]Dublin [place] [id number] pH Test strip (U) 6.0 [pH] Normal 5.0-7.5 Compreh ensive Internal Medicine Work Phone: Protein Ql (U) Negative Normal Comprehens [facility]olph [facility] Work Phone: Comment on above: PATIENT WAS FASTINGP ERFORMED BY: CB [facility] [id number] RoadDublin [place] [id number] Protein Ql (U) Negative Normal Comprehens rudolph [facility]; [facility] Work Phone: Comment on above: PATIENT WAS FASTINGP ERFORMED BY: CB [facility] [id number] RoadDublin [place] [id number] Protein Test strip Ql (U) Negative Normal [facility] Work Phone: Specific gravity Relative Density (U) 1.027 1 Normal 1.005-1.03 0 [facility] Work Phone: Comment on above: PATIENT WAS FASTINGP ERFORMED BY: CB [facility] [id number]Dublin [place] [id number] Urobilinogen (U) [Mass/Vol] 0.2 mg/dL Normal 0.0-1.9 [facility]; [facility] Work Phone: Comment on above: PATIENT WAS FASTINGP ERFORMED BY: CB [facility] [id number] [place] [id number] Urobilinogen Test strip mass conc (U) 0.2 mg/dL Normal 0.0-1.9 [facility] Work Phone: Comment on above: PATIENT WAS FASTINGP ERFORMED BY: CB [facility] [id number]Dublin [place] [id number] CBCMDOrdered By: Gerson alfaro on 06-27-2012 Eosinophils/100 WBC (Bld) 10 % Abnormal 0-5 [facility] Work Phone: Eosinophils/100 WBC Auto (Bld) 10 % Abnormal 0-5 [facility] Work Phone: Erythrocyte distribution width (RBC) [Ratio] 12.9 % Normal 11.6-14.6 [facility] Work Phone: Erythrocyte distribution width Auto Ratio (RBC) 12.9 % Normal 11.6-14.6 [facility] Work Phone: Hematocrit (Bld) [Volume fraction] 42.4 % Normal 37-47 [facility] Work Phone: Hematocrit Auto Volume Fraction (Bld) 42.4 % Normal 37-47 [facility] Work Phone: Hemoglobin mass conc (Bld) 14.3 g.dL Normal 12.0-15.0 [facility] Work Phone: Lymphocytes/100 WBC (Bld) 38 % Normal 19-41 [facility] Work Phone: Lymphocytes/100 WBC Auto (Bld) 38 % Normal 19-41 [facility] Internal Medicine Work Phone: MCH (RBC) [Entitic mass] 29.3 pg Normal 27.0-32.0 [facility] Work Phone: MCH Auto Entitic mass (RBC) 29.3 pg Normal 27.0-32.0 [facility] Work Phone: MCHC (RBC) [Mass/Vol] 33.8 g/dL Normal 32-36 Com prehensive Internal Medicine Work Phone: MCHC Auto mass conc (RBC) 33.8 g/dL Normal 32-36 [facility] Work Phone: MCV (RBC) [Entitic vol] 86.9 fL Normal 81-99 C omprehensive Internal Medicine Work Phone: MCV Auto Entitic volume (RBC) 86.9 fL Normal 81-99 [facility] Internal Medicine Work Phone: Neutrophils (Bld) [#/Vol] 3.7 3/uL Normal 2.0-7.7 [facility] Work Phone: Neutrophils Auto #/vol (Bld) 3.7 3/uL Normal 2.0-7.7 [facility] Work Phone: Platelets (Bld) [#/Vol] 282 10*3/uL Normal 150-450 [facility] Work Phone: Platelets Auto #/vol (Bld) 282 10*3/uL Normal 150-450 [facility] Work Phone: RBC (Bld) [#/Vol] 4.88 {M/mm3} Normal 4.2-5.4 Compr ehensive Internal Medicine Work Phone: RBC (Bld) [#/Vol] NORM C+C Normal Compreh ensive Internal Medicine Work Phone: RBC Auto #/vol (Bld) NORM C+C Normal Comp rehensive Internal Medicine Work Phone: RBC Auto #/vol (Bld) 4.88 {M/mm3} Normal 4.2-5.4 Co mprehensive [facility] Work Phone: WBC (Bld) [#/Vol] 6.7 10*3/uL Normal 4.4-11.0 Compre hensive Internal Medicine Work Phone: WBC Auto #/vol (Bld) 6.7 10*3/uL Normal 4.4-11.0 Com prehensive Internal Medicine Work Phone: CBCMD ADEQUATE Normal [facility] Work Phone: CBCMD 5 % Normal 0-10 [facility] Work Phone: CBCMD 47 % Normal 47-70 [facility] Work Phone: CBCMD 100 1 Normal [facility] Work Phone: CMPOrdered By: System Manage r on 06-27-2012 Albumin mass conc 3.8 g/dL Normal 3.4-5.0 Compreh ensive Internal Medicine Work Phone: Albumin/Globulin mass ratio 1.1 {RATIO} Normal 0.9-2.4 [facility] Work Phone: ALP enzyme act/vol 93 U/L Normal 50-136 Compre hensive Internal Medicine Work Phone: ALT enzyme act/vol 31 U/L Normal 12-78 Compre hensive Internal Medicine Work Phone: Anion gap 3 molar conc 10 mmol/L Normal 5-15 Co m[facility] Work Phone: Anion gap [Moles/Vol] 10 mmol/L Normal 5-15 Com prehensive Internal Medicine Work Phone: AST enzyme act/vol 16 U/L Normal 15-37 Compre hensive Internal Medicine Work Phone: Bilirubin mass conc 0.40 mg/dL Normal 0.00-1.00 Compr ehensive Internal Medicine Work Phone: Calcium mass conc 9.1 mg/dL Normal 8.5-10.1 Compreh ensive Internal Medicine Work Phone: Chloride molar conc 105 mmol/L Normal 98-107 Compr ehensive Internal Medicine Work Phone: CO2 molar conc 25.0 mmol/L Normal 21.0-32.0 Comprehen sive Internal Medicine Work Phone: Creatinine mass conc 0.6 mg/dL Normal 0.6-1.0 Comp rehensive Internal Medicine Work Phone: GFR/1.73 sq M predicted among blacks MDRD vol rate/area (S/P/Bld) 131 mL/min/{1.73_m2} Normal Compreh ensive Internal Medicine Work Phone: GFR/1.73 sq M.predicted MDRD (S/P/Bld) [Vol rate/Area] 108 mL/min/{1.73_m2} Normal Comprehensi ve Internal Medicine Work Phone: GFR/1.73 sq M.predicted MDRD vol rate/area 108 mL/min/{1.73_m2} Normal Comprehe nsive Internal Medicine Work Phone: Globulin (S) [Mass/Vol] 3.5 g/dL Normal 2.7-4.2 C omprehensive [facility] Work Phone: Globulin Calculated mass conc (S) 3.5 g/dL Normal 2.7-4.2 [facility] Work Phone: Glucose mass conc 91 mg/dL Normal 70-110 Compreh ensive Internal Medicine Work Phone: Potassium molar conc 3.9 mmol/L Normal 3.5-5.1 Comp rehensive Internal Medicine Work Phone: Protein mass conc 7.3 g/dL Normal 6.4-8.2 Compreh ensive Internal Medicine Work Phone: Sodium molar conc 140 mmol/L Normal 136-145 Compreh ensive Internal Medicine Work Phone: Urea nitrogen mass conc 9 mg/dL Normal 7-18 C [facility]rehens[facility] Work Phone: Urea nitrogen/Creatinine mass ratio 15.0 {RATIO} Normal 10-20 [facility] Work Phone: LIPIDOrdered By: System Latesha dominic on 06-27-2012 Cholesterol in HDL mass conc 56 mg/dL Normal [facility] Work Phone: Comment on above: Reference Range HDL <40 mg/dL Low HDL Cholesterol HDL >or= 60 mg/dL High HDL Cholesterol Cholesterol in LDL mass conc 100 mg/dL Normal 0-130 [facility] Work Phone: Cholesterol in VLDL mass conc 16 mg/dL Normal 5-40 [facility] Work Phone: Cholesterol mass conc 172 mg/dL Normal Com prehensive Internal Medicine Work Phone: Comment on above: <200 mg/dL Desirable 200-240 mg/dL Borderline >240 mg/dL High Risk Triglyceride mass conc 80 mg/dL Normal Co mprehensive [facility] Work Phone: Comment on above: Serum Triglycerides Reference Interval Normal <150 mg/dL Borderline high 150 - 199 mg/dL High 200 - 499 mg/dL Very High > or = 500 mg/dL UACOrdered By: System Manage r on 06-27-2012 RBC (U) [#/Vol] 0 SEEN Normal 0-5 Comprehen sive Internal Medicine Work Phone: WBC (U) [#/Vol] 0 SEEN Normal 0-5 Comprehen sive Internal Medicine Work Phone: UAC Clear Normal [facility] Work Phone: UAC Yellow Normal [facility] Work Phone: UAC 0 SEEN Normal [facility] Work Phone: UAC 0-5 SEEN Normal 5-10 [facility] Work Phone: UAC Negative Normal [facility] Work Phone: UAC 0.2 EU/dl Normal 0.2 - 1.0 [facility] Work Phone: UAC 6.5 1 Normal 5.0-8.0 [facility] Work Phone: UAC 1.010 1 Normal 1.002-1.03 0 [facility] Work Phone: CBCD,SMEAR DIFFOrdered By: Abisai hitem Electroencephalographic Technologist on 06-04-2011 Eosinophils/100 WBC (Bld) 7 % Abnormal 0-5 [facility] Work Phone: Eosinophils/100 WBC Auto (Bld) 7 % Abnormal 0-5 [facility] Work Phone: Erythrocyte distribution width (RBC) [Ratio] 13.2 % Normal 11.6-14.6 [facility] Work Phone: Erythrocyte distribution width Auto Ratio (RBC) 13.2 % Normal 11.6-14.6 [facility] Work Phone: Hematocrit (Bld) [Volume fraction] 42.6 % Normal 37-47 [facility] Work Phone: Hematocrit Auto Volume Fraction (Bld) 42.6 % Normal 37-47 [facility] Work Phone: Hemoglobin mass conc (Bld) 14.1 g/dL Normal 12.0-16.0 [facility] Work Phone: Lymphocytes/100 WBC (Bld) 26 % Normal 19-41 [facility] Work Phone: Lymphocytes/100 WBC Auto (Bld) 26 % Normal 19-41 [facility] Work Phone: MCH (RBC) [Entitic mass] 29.2 pg Normal 27.0-32.0 [facility] Work Phone: MCH Auto Entitic mass (RBC) 29.2 pg Normal 27.0-32.0 [facility] Work Phone: MCHC (RBC) [Mass/Vol] 33.1 g/dL Normal 32-36 Com prehensive Internal Medicine Work Phone: MCHC Auto mass conc (RBC) 33.1 g/dL Normal 32-36 [facility] Work Phone: MCV (RBC) [Entitic vol] 88.4 fL Normal 81-[address] [facility] Internal Medicine Work Phone: MCV Auto Entitic volume (RBC) 88.4 fL Normal 81-99 [facility] Internal Medicine Work Phone: Monocytes/100 WBC (Bld) 10 % Normal 0-[address] [facility] Internal Medicine Work Phone: Monocytes/100 WBC Auto (Bld) 10 % Normal 0-10 [facility] Work Phone: Neutrophils (Bld) [#/Vol] 3.9 3/uL Normal 2.0-7.7 [facility] Work Phone: Neutrophils Auto #/vol (Bld) 3.9 3/uL Normal 2.0-7.7 [facility] Internal Medicine Work Phone: Platelets (Bld) [#/Vol] 301 10*3/uL Normal 150-450 [facility] Work Phone: Platelets (Bld) [#/Vol] SeeNote Normal C [facility] Internal Medicine Work Phone: Comment on above: Result: ADEQUATE Platelets Auto #/vol (Bld) 301 10*3/uL Normal 150-450 [facility] Work Phone: RBC (Bld) [#/Vol] 4.82 {M/mm3} Normal 4.2-5.4 [facility] Internal Medicine Work Phone: RBC Auto #/vol (Bld) 4.82 {M/mm3} Normal 4.2-5.4 Co [facility] Internal Medicine Work Phone: WBC (Bld) [#/Vol] 6.6 10*3/uL Normal 4.4-11.0 [facility] Internal Medicine Work Phone: WBC Auto #/vol (Bld) 6.6 10*3/uL Normal 4.4-11.0 Com prehensive Internal Medicine Work Phone: CBCD,SMEAR DIFF 100 1 Normal Comprehen [facility] Internal Medicine Work Phone: CBCD,SMEAR DIFF 57 % Normal 47-70 [facility] Work Phone: COMP METABOLICOrdered By: Evan stem Electroencephalographic Technologist on 06-04-2011 Albumin mass conc 3.9 g/dL Normal 3.4-5.0 [facility] Internal Medicine Work Phone: Albumin/Globulin mass ratio 1.2 {RATIO} Normal 0.9-2.4 [facility] Internal Medicine Work Phone: ALP enzyme act/vol 93 U/L Normal 50-136 [facility] Internal Medicine Work Phone: ALT enzyme act/vol 28 U/L Normal 12-78 [facility] Internal Medicine Work Phone: Anion gap 3 molar conc 10 mmol/L Normal 5-15 [facility] Work Phone: Anion gap [Moles/Vol] 10 mmol/L Normal 5-15 Com [facility] Work Phone: AST enzyme act/vol 17 U/L Normal 15-37 [facility] Internal Medicine Work Phone: Bilirubin mass conc 0.50 mg/dL Normal 0.00-1.00 [facility] Phone: Calcium mass conc 9.3 mg/dL Normal 8.5-10.1 [facility] Internal Medicine Work Phone: Chloride molar conc 103 mmol/L Normal 98-107 [facility] Internal Medicine Work Phone: CO2 molar conc 28.0 mmol/L Normal 21.0-32.0 [facility] Internal Medicine Work Phone: Creatinine mass conc 0.6 mg/dL Normal 0.6-1.0 Comp rehensive Internal Medicine Work Phone: GFR/1.73 sq M predicted among blacks MDRD vol rate/area (S/P/Bld) 131 mL/min/{1.73_m2} Normal Compreh ensive Internal Medicine Work Phone: GFR/1.73 sq M.predicted MDRD (S/P/Bld) [Vol rate/Area] 108 mL/min/{1.73_m2} Normal Comprehensi ve Internal Medicine Work Phone: GFR/1.73 sq M.predicted MDRD vol rate/area 108 mL/min/{1.73_m2} Normal Comprehe nsive Internal Medicine Work Phone: Globulin (S) [Mass/Vol] 3.3 g/dL Normal 2.7-4.2 [facility] Work Phone: Globulin Calculated mass conc (S) 3.3 g/dL Normal 2.7-4.2 [facility] Work Phone: Glucose mass conc 87 mg/dL Normal 70-110 Compreh ensive Internal Medicine Work Phone: Potassium molar conc 3.8 mmol/L Normal 3.5-5.1 Comp rehensive Internal Medicine Work Phone: Protein mass conc 7.2 g/dL Normal 6.4-8.2 Compreh ensive Internal Medicine Work Phone: Sodium molar conc 141 mmol/L Normal 136-145 Compreh ensive Internal Medicine Work Phone: Urea nitrogen mass conc 11 mg/dL Normal 7-18 [facility] Work Phone: Urea nitrogen/Creatinine mass ratio 18.3 {RATIO} Normal 10-20 [facility] Work Phone: COMPLETE UAOrdered By: Jaimie franklin Electroencephalographic Technologist on 06-04-2011 Bacteria LM.HPF (Urine sed) [#/Area] 0 SEEN Normal [facility] Work Phone: Clarity (U) CLEAR Normal [facility] Work Phone: Color (U) YELLOW Normal [facility] Work Phone: RBC (U) [#/Vol] 0 SEEN Normal 0-5 Comprehen sive Internal Medicine Work Phone: RBC Test strip #/vol (U) 0 SEEN Normal 0-5 [facility] Work Phone: WBC (Bld) [#/Vol] 0 SEEN Normal 0-5 Compreh ensive Internal Medicine Work Phone: COMPLETE UA CLEAR Normal [facility] Work Phone: COMPLETE UA SeeNote Normal [facility] Work Phone: Comment on above: Result: NEGATIVE Result: 0-5 SEEN Result: ADEQUATE Result: NORM C+C COMPLETE UA YELLOW Normal [facility] Work Phone: COMPLETE UA 1.025 1 Normal 1.002-1.03 0 [facility] Work Phone: COMPLETE UA 6.0 1 Normal 5.0-8.0 [facility] Work Phone: COMPLETE UA 0.2 EU/dl Normal 0.2 - 1.0 [facility] Work Phone: COMPLETE UA 0 SEEN Normal [facility] Work Phone: NMR LIPOPROFILEOrdered By: Abisai flores Electroencephalographic Technologist on 06-04-2011 Cholesterol in HDL mass conc 69 mg/dL Normal [facility] Work Phone: Cholesterol mass conc 211 mg/dL Abnormal Com prehensive Internal Medicine Work Phone: INR Coag RelTime (Bld) . Normal Co mprehensive [facility] Work Phone: Triglyceride mass conc 81 mg/dL Normal Co mprehensive [facility] Medicine Work Phone: NMR LIPOPROFILE 755 nmol/L Abnormal Comprehen sive Internal Medicine Work Phone: NMR LIPOPROFILE . Normal Comprehen sive Internal Medicine Work Phone: NMR LIPOPROFILE 1442 nmol/L Abnormal Comprehe nsive Internal Medicine Work Phone: Comment on above: Low < 1000 Moderate 1000 - 1299 Borderline-High 1300 - 1599 High 1600 - 2000 Very High > 2000 NMR LIPOPROFILE 22 1 Normal [facility] Internal Medicine Work Phone: Comment on above: LP-IR Score is inacc urate if patient is non-fasting.The LP-IR Score combines information from lipoproteinparticle concentration and size to give improvedassessment of insulin resistance and diabetes risk.Small LDL-P, LDL Particle Size, HDL-Particle, andLP-IR Score have been validated by [employer]but not cleared by US FDA; the clinical utilityof these test results has not been fully established.INSULIN RESISTANCE MARKER <--Insulin Sensitive Insulin Resistant--> Percentile in Reference PopulationInsulin Resistance ScoreLP-IR Score Low 25th 50th 75th High <27 27 45 63 >63Performed at: [facility] [employer] [id number] [place], [place] [id number] Director: Fany Martinez PhD, Phone: [phone] NMR LIPOPROFILE 20.9 nm Normal [facility] Internal [facility] Work Phone: Comment on above: INTERPRETATIVE INFORMATION PARTICLE CONCENTRATION AND SIZE <--Lower CVD Risk Higher CVD Risk--> LDL AND HDL PARTICLES Percentile in Reference Population HDL-P (total) High 75th 50th 25th Low >34.9 34.9 30.5 26.7 <26.7 . Small LDL-P Low 25th 50th 75th High <117 117 527 839 >839 . LDL Size <-Large (Pattern A)-> <-Small (Pattern B)-> 23.0 20.6 20.5 19.0 NMR LIPOPROFILE 49.5 umol/L Normal [facility] Internal Medicine Work Phone: NMR LIPOPROFILE 126 mg/dL Abnormal Comprehen sive Internal Medicine Work Phone: Comment on above: LDL-C is inaccurate if patient is nonfasting. . Optimal < 100 Above optimal 100 - 129 Borderline 130 - 159 High 160 - 189 Very high > 189 . CBCD,SMEAR DIFFOrdered By: Abisai tem Electroencephalographic Technologist on 09-26-2009 Eosinophils/100 WBC (Bld) 5 % Normal 0-5 [facility] Work Phone: Eosinophils/100 WBC Auto (Bld) 5 % Normal 0-5 [facility] Work Phone: Erythrocyte distribution width (RBC) [Ratio] 13.2 % Normal 11.6-14.6 [facility] Work Phone: Erythrocyte distribution width Auto Ratio (RBC) 13.2 % Normal 11.6-14.6 [facility] Work Phone: Hematocrit (Bld) [Volume fraction] 41.1 % Normal 37-47 [facility] Work Phone: Hematocrit Auto Volume Fraction (Bld) 41.1 % Normal 37-47 [facility] Work Phone: Hemoglobin mass conc (Bld) 13.5 g/dL Normal 12.0-16.0 [facility] Work Phone: Lymphocytes/100 WBC (Bld) 36 % Normal 19-41 [facility] Work Phone: Lymphocytes/100 WBC Auto (Bld) 36 % Normal 19-41 [facility] Internal Medicine Work Phone: MCH (RBC) [Entitic mass] 28.5 pg Normal 27.0-32.0 [facility] Work Phone: MCH Auto Entitic mass (RBC) 28.5 pg Normal 27.0-32.0 [facility] Internal Medicine Work Phone: MCHC (RBC) [Mass/Vol] 33.0 g/dL Normal 32-36 [facility] prehensive Internal Medicine Work Phone: MCHC Auto mass conc (RBC) 33.0 g/dL Normal 32-36 [facility] Work Phone: MCV (RBC) [Entitic vol] 86.6 fL Normal 81-99 [facility] Work Phone: MCV Auto Entitic volume (RBC) 86.6 fL Normal 81-99 [facility] Work Phone: Monocytes/100 WBC (Bld) 6 % Normal 0-10 [facility] Work Phone: Monocytes/100 WBC Auto (Bld) 6 % Normal 0-10 [facility] Work Phone: Platelets (Bld) [#/Vol] SeeNote Normal C [facility] Work Phone: Comment on above: Result: ADEQUATE Platelets (Bld) [#/Vol] 312 10*3/uL Normal 150-450 [facility] Work Phone: Platelets Auto #/vol (Bld) 312 10*3/uL Normal 150-450 [facility] Work Phone: RBC (Bld) [#/Vol] 4.74 {M/mm3} Normal 4.2-5.4 Compr ehensive Internal Medicine Work Phone: RBC Auto #/vol (Bld) 4.74 {M/mm3} Normal 4.2-5.4 Co mprehensive [facility] Medicine Work Phone: WBC (Bld) [#/Vol] 6.5 10*3/uL Normal 4.4-11.0 Compre hensive Internal Medicine Work Phone: WBC Auto #/vol (Bld) 6.5 10*3/uL Normal 4.4-11.0 [facility] prehensive Internal Medicine Work Phone: CBCD,SMEAR DIFF 100 1 Normal Comprehen [facility] Internal Medicine Work Phone: CBCD,SMEAR DIFF 53 % Normal 47-70 Comprehen [facility] Internal Medicine Work Phone: COMP METABOLICOrdered By: Sy stem Electroencephalographic Technologist on 09-26-2009 Albumin mass conc 3.8 g/dL Normal 3.4-5.0 Compreh ensive Internal Medicine Work Phone: Albumin/Globulin mass ratio 1.2 {RATIO} Normal 0.9-2.4 [facility] Work Phone: ALP enzyme act/vol 84 U/L Normal 50-136 Compre [facility] Internal Medicine Work Phone: ALT enzyme act/vol 22 U/L Normal 12-78 Compre [facility] Internal Medicine Work Phone: Anion gap 3 molar conc 7 mmol/L Normal 5-15 Co mprehensive Internal Medicine Work Phone: Anion gap [Moles/Vol] 7 mmol/L Normal 5-15 Com prehensive Internal Medicine Work Phone: AST enzyme act/vol 9 U/L Abnormal 15-37 [facility] Internal Medicine Work Phone: Bilirubin mass conc 0.30 mg/dL Normal 0.00-1.00 Compr ensive Internal Medicine Work Phone: Calcium mass conc 8.9 mg/dL Normal 8.5-10.1 Compreh ensive Internal Medicine Work Phone: Chloride molar conc 104 mmol/L Normal 98-107 Compr ensive Internal Medicine Work Phone: CO2 molar conc 29.0 mmol/L Normal 21.0-32.0 [facility] Work Phone: Creatinine mass conc 0.7 mg/dL Normal 0.6-1.[address] [facility]: GFR/1.73 sq M predicted among blacks MDRD vol rate/area (S/P/Bld) 110 mL/min/{1.73_m2} Normal Compreh ensive Internal Medicine Work Phone: GFR/1.73 sq M.predicted MDRD (S/P/Bld) [Vol rate/Area] 91 mL/min/{1.73_m2} Normal Comprehens e Internal Medicine Work Phone: GFR/1.73 sq M.predicted MDRD vol rate/area 91 mL/min/{1.73_m2} Normal Comprehen [facility] Internal Medicine Work Phone: Globulin (S) [Mass/Vol] 3.2 g/dL Normal 2.7-4.2 [facility] Internal Medicine Work Phone: Globulin Calculated mass conc (S) 3.2 g/dL Normal 2.7-4.2 [facility] Medicine Work Phone: Glucose mass conc 84 mg/dL Normal 70-110 Compreh ensive Internal Medicine Work Phone: Potassium molar conc 4.0 mmol/L Normal 3.5-5.1 Comp rehensive Internal Medicine Work Phone: Protein mass conc 7.0 g/dL Normal 6.4-8.2 Compreh ensive Internal Medicine Work Phone: Sodium molar conc 140 mmol/L Normal 136-145 Compreh ensive Internal Medicine Work Phone: Urea nitrogen mass conc 11 mg/dL Normal 7-18 [facility] Internal Medicine Work Phone: Urea nitrogen/Creatinine mass ratio 15.7 {RATIO} Normal 10-20 [facility] Work Phone: COMPLETE UAOrdered By: Jaimie m Electroencephalographic Technologist on 09-26-2009 Bacteria LM.HPF (Urine sed) [#/Area] RARE Normal [facility] Work Phone: Clarity (U) CLEAR Normal [facility] Work Phone: Color (U) YELLOW Normal [facility] Work Phone: RBC (U) [#/Vol] SeeNote Normal 0-5 Comprehen sive Internal Medicine Work Phone: Comment on above: Result: 0-5 SEEN RBC Test strip #/vol (U) SeeNote Normal 0-5 [facility] Work Phone: Comment on above: Result: 0-5 SEEN WBC (Bld) [#/Vol] SeeNote Normal 0-5 Compreh ensive Internal Medicine Work Phone: Comment on above: Result: 0-5 SEEN COMPLETE UA SeeNote Normal 0-5 [facility] Work Phone: Comment on above: Result: 0-5 SEEN Result: ADEQUATE Result: NEGATIVE Result: NORM C+C COMPLETE UA YELLOW Normal [facility] Work Phone: COMPLETE UA CLEAR Normal [facility] Work Phone: COMPLETE UA 0.2 EU/dl Normal 0.2 - 1.0 [facility] Work Phone: COMPLETE UA 1.020 1 Normal 1.002-1.03 0 [facility] Work Phone: COMPLETE UA 6.0 1 Normal 5.0-8.0 [facility] Work Phone: COMPLETE UA 0 SEEN Normal [facility] Work Phone: COMPLETE UA RARE Normal [facility] Work Phone: LIPIDOrdered By: Gerson alfaro on 09-26-2009 Cholesterol in HDL mass conc 57 mg/dL Normal [facility] Work Phone: Comment on above: Reference RangeHDL < 40 mg/dL Low HDL CholesterolHDL >or= 60 mg/dL High HDL Cholesterol Cholesterol in LDL mass conc 89 mg/dL Normal 0-130 [facility] Work Phone: Cholesterol in VLDL mass conc 16 mg/dL Normal 5-40 [facility] Work Phone: Cholesterol mass conc 162 mg/dL Normal Com prehensive Internal Medicine Work Phone: Comment on above: <200 mg/dL Desirable 200-240 mg/dL Borderline>240 mg/dL High Risk Triglyceride mass conc 80 mg/dL Normal Co mprehensive Internal Medicine Work Phone: Comment on above: Serum Triglycerides Reference IntervalNormal <150 mg/dLBorderline high 150 - 199 mg/dLHigh 200 - 499 mg/dLVery High > or = 500 mg/dL BMPOrdered By: System [employer]URE [employer] r on 07-31-2008 Anion gap 3 molar conc 5 mmol/L Normal 5-15 Co [facility] Internal Medicine Work Phone: Anion gap [Moles/Vol] 5 mmol/L Normal 5-15 Com prehensive Internal Medicine Work Phone: Calcium mass conc 9.1 mg/dL Normal 8.5-10.1 Compreh ensive Internal Medicine Work Phone: Chloride molar conc 107 mmol/L Normal 98-107 Compr ehensive Internal Medicine Work Phone: CO2 molar conc 27.8 mmol/L Normal 21.0-32.0 Comprehen sive Internal Medicine Work Phone: Creatinine mass conc 0.8 mg/dL Normal 0.6-1.0 Comp rehensive Internal Medicine Work Phone: Glucose mass conc 104 mg/dL Normal 70-110 Compreh ensive Internal Medicine Work Phone: Potassium molar conc 3.6 mmol/L Normal 3.5-5.1 Comp rehensive Internal Medicine Work Phone: Sodium molar conc 140 mmol/L Normal 136-145 Compreh ensive Internal Medicine Work Phone: Urea nitrogen mass conc 12 mg/dL Normal 7-18 [facility] Internal Medicine Work Phone: Urea nitrogen/Creatinine mass ratio 15.0 {RATIO} Normal 10-20 [facility] Work Phone: CBCD,SMEAR DIFFOrdered By: Abisai ystem Electroencephalographic Technologist on 07-23-2008 Eosinophils/100 WBC (Bld) 4 % Normal 0-5 [facility] Work Phone: Eosinophils/100 WBC Auto (Bld) 4 % Normal 0-5 [facility] Work Phone: Erythrocyte distribution width (RBC) [Ratio] 12.6 % Normal 11.6-14.6 [facility] Work Phone: Erythrocyte distribution width Auto Ratio (RBC) 12.6 % Normal 11.6-14.6 [facility] Work Phone: Hematocrit (Bld) [Volume fraction] 40.4 % Normal 37-47 [facility] Work Phone: Hematocrit Auto Volume Fraction (Bld) 40.4 % Normal 37-47 [facility] Work Phone: Hemoglobin mass conc (Bld) 13.7 g/dL Normal 12.0-16.0 [facility] Work Phone: Lymphocytes/100 WBC (Bld) 27 % Normal 19-41 [facility] Work Phone: Lymphocytes/100 WBC Auto (Bld) 27 % Normal 19-41 [facility] Work Phone: MCH (RBC) [Entitic mass] 28.7 pg Normal 27.0-32.0 [facility] Work Phone: MCH Auto Entitic mass (RBC) 28.7 pg Normal 27.0-32.0 [facility] Work Phone: MCHC (RBC) [Mass/Vol] 33.9 g/dL Normal 32-36 [facility] prehensive Internal Medicine Work Phone: MCHC Auto mass conc (RBC) 33.9 g/dL Normal 32-36 [facility] Internal Medicine Work Phone: MCV (RBC) [Entitic vol] 84.4 fL Normal 81-99 [facility] Work Phone: MCV Auto Entitic volume (RBC) 84.4 fL Normal 81-99 [facility] Work Phone: Monocytes/100 WBC (Bld) 5 % Normal 0-10 [facility] Work Phone: Monocytes/100 WBC Auto (Bld) 5 % Normal 0-10 [facility] Work Phone: Platelets (Bld) [#/Vol] SeeNote Normal [facility] Work Phone: Comment on above: Result: ADEQUATE Platelets (Bld) [#/Vol] 377 10*3/uL Normal 150-450 [facility] Work Phone: Platelets Auto #/vol (Bld) 377 10*3/uL Normal 150-450 [facility] Work Phone: RBC (Bld) [#/Vol] 4.79 {M/mm3} Normal 4.2-5.4 [facility] Internal Medicine Work Phone: RBC Auto #/vol (Bld) 4.79 {M/mm3} Normal 4.2-5.4 Co [facility] Internal Medicine Work Phone: WBC (Bld) [#/Vol] 9.2 10*3/uL Normal 4.4-11.0 [facility] Internal Medicine Work Phone: WBC Auto #/vol (Bld) 9.2 10*3/uL Normal 4.4-11.0 Com prehensive Internal Medicine Work Phone: CBCD,SMEAR DIFF 64 % Normal 47-70 Comprehen [facility] Internal Medicine Work Phone: CBCD,SMEAR DIFF 100 1 Normal Comprehen [facility] Internal Medicine Work Phone: COMP METABOLICOrdered By: Sy stem Electroencephalographic Technologist on 07-23-2008 Albumin mass conc 3.7 g/dL Normal 3.4-5.0 Compreh [facility] Internal Medicine Work Phone: Albumin/Globulin mass ratio 1.1 {RATIO} Normal 0.9-2.4 [facility] Internal Medicine Work Phone: ALP enzyme act/vol 98 U/L Normal 50-136 [facility] Internal Medicine Work Phone: ALT enzyme act/vol 32 U/L Normal 30-65 [facility] Internal Medicine Work Phone: Anion gap 3 molar conc 8 mmol/L Normal 5-15 [facility] Phone: Anion gap [Moles/Vol] 8 mmol/L Normal 5-15 Com prehensive Internal Medicine Work Phone: AST enzyme act/vol 19 U/L Normal 15-37 [facility] Internal Medicine Work Phone: Bilirubin mass conc 0.32 mg/dL Normal 0.00-1.00 [facility] Phone: Calcium mass conc 9.3 mg/dL Normal 8.5-10.1 Compreh [facility] Internal Medicine Work Phone: Chloride molar conc 102 mmol/L Normal 98-107 Compr [facility] Internal Medicine Work Phone: CO2 molar conc 25.7 mmol/L Normal 21.0-32.0 [facility] Work Phone: Creatinine mass conc 0.9 mg/dL Normal 0.6-1.0 Comp rehensive Internal Medicine Work Phone: Globulin (S) [Mass/Vol] 3.3 g/dL Normal 2.7-4.2 [facility] Internal Medicine Work Phone: Globulin Calculated mass conc (S) 3.3 g/dL Normal 2.7-4.2 [facility] Work Phone: Glucose mass conc 88 mg/dL Normal 70-110 Compreh ensive Internal Medicine Work Phone: Potassium molar conc 3.3 mmol/L Abnormal 3.5-5.1 Comp rehensive Internal Medicine Work Phone: Protein mass conc 7.0 g/dL Normal 6.4-8.2 Compreh ensive Internal Medicine Work Phone: Sodium molar conc 136 mmol/L Normal 136-145 Compreh ensive Internal Medicine Work Phone: Urea nitrogen mass conc 11 mg/dL Normal 7-18 [facility] Internal Medicine Work Phone: Urea nitrogen/Creatinine mass ratio 12.2 {RATIO} Normal 10-20 [facility] Work Phone: LIPIDOrdered By: Gerson alfaro on 07-23-2008 Cholesterol in HDL mass conc 50 mg/dL Normal [facility] Work Phone: Comment on above: Reference Range HDL <40 mg/dL Low HDL Cholesterol HDL >or= 60 mg/dL High HDL Cholesterol Cholesterol in LDL mass conc 88 mg/dL Normal 0-130 [facility] Work Phone: Cholesterol in VLDL mass conc 30 mg/dL Normal 5-40 [facility] Work Phone: Cholesterol mass conc 168 mg/dL Normal Com prehensive Internal Medicine Work Phone: Comment on above: <200 mg/dL Desirable 200-240 mg/dL Borderline >240 mg/dL High Risk Triglyceride mass conc 152 mg/dL Normal Co [facility]prehensive Internal Medicine Work Phone: Comment on above: Serum Triglycerides Reference Interval Normal <150 mg/dL Borderline high 150 - 199 mg/dL High 200 - 499 mg/dL Very High > or = 500 mg/dL ROUTINE UAOrdered By: Flight Reservations Manager on 07-23-2008 Clarity (U) CLEAR Normal [facility] Work Phone: Color (U) YELLOW Normal [facility] Work Phone: ROUTINE UA YELLOW Normal [facility] Work Phone: ROUTINE UA SeeNote Normal [facility] Work Phone: Comment on above: Result: NEGATIVE Result: NORM C+C Result: ADEQUATE ROUTINE UA TRACE Abnormal [facility] Work Phone: ROUTINE UA 6.5 1 Normal 5.0-8.0 [facility] Work Phone: ROUTINE UA 1.020 1 Normal 1.002-1.03 0 [facility] Work Phone: ROUTINE UA CLEAR Normal [facility] Work Phone: ROUTINE UA 0.2 EU/dl Normal 0.2 - 1.0 [facility] Work Phone: CBCOrdered By: System Manage r on 06-13-2007 Erythrocyte distribution width (RBC) [Ratio] 13.0 % Normal 11.6-14.6 [facility] Work Phone: Erythrocyte distribution width Auto Ratio (RBC) 13.0 % Normal 11.6-14.6 [facility] Work Phone: Hematocrit (Bld) [Volume fraction] 40.3 % Normal 37-47 [facility] Work Phone: Hematocrit Auto Volume Fraction (Bld) 40.3 % Normal 37-47 [facility] Work Phone: Hemoglobin mass conc (Bld) 13.5 g/dL Normal 12.0-16.0 [facility] Work Phone: MCH (RBC) [Entitic mass] 28.8 pg Normal 27.0-32.0 [facility] Work Phone: MCH Auto Entitic mass (RBC) 28.8 pg Normal 27.0-32.0 [facility] Work Phone: MCHC (RBC) [Mass/Vol] 33.5 g/dL Normal 32-36 Com prehensive Internal Medicine Work Phone: MCHC Auto mass conc (RBC) 33.5 g/dL Normal 32-36 [facility] Work Phone: MCV (RBC) [Entitic vol] 86.1 fL Normal 81-99 [facility] Internal Medicine Work Phone: MCV Auto Entitic volume (RBC) 86.1 fL Normal 81-99 [facility] Work Phone: Platelet mean volume (Bld) [Entitic vol] 8.6 fL Normal 6.5-12.0 Comprehensiv e Internal Medicine Work Phone: Platelet mean volume Auto Entitic volume (Bld) 8.6 fL Normal 6.5-12.0 [facility] Work Phone: Platelets (Bld) [#/Vol] 351 10*3/uL Normal 150-450 [facility] Work Phone: Platelets Auto #/vol (Bld) 351 10*3/uL Normal 150-450 [facility] Work Phone: RBC (Bld) [#/Vol] 4.68 {M/mm3} Normal 4.2-5.4 Compr ehensive Internal Medicine Work Phone: RBC Auto #/vol (Bld) 4.68 {M/mm3} Normal 4.2-5.4 Co [facility] Internal Medicine Work Phone: WBC (Bld) [#/Vol] 5.9 10*3/uL Normal 4.4-11.0 Compre hensive Internal Medicine Work Phone: WBC Auto #/vol (Bld) 5.9 10*3/uL Normal 4.4-11.0 Com prehensive Internal Medicine Work Phone: COMP METABOLICOrdered By: Sy stem Electroencephalographic Technologist on 06-13-2007 Albumin mass conc 3.9 g/dL Normal 3.4-5.0 Compreh ensive Internal Medicine Work Phone: Albumin/Globulin mass ratio 1.2 {RATIO} Normal 0.9-2.4 [facility] Internal Medicine Work Phone: ALP enzyme act/vol 97 U/L Normal 50-136 Compre [facility] Internal Medicine Work Phone: ALT enzyme act/vol 31 [iU]/L Normal 30-65 Compre [facility] Internal Medicine Work Phone: Anion gap 3 molar conc 9 mmol/L Normal 5-15 Co [facility] Internal Medicine Work Phone: Anion gap [Moles/Vol] 9 mmol/L Normal 5-15 Com prehensive Internal Medicine Work Phone: AST enzyme act/vol 23 U/L Normal 15-37 [facility] Internal Medicine Work Phone: Bilirubin mass conc 0.52 mg/dL Normal 0.00-1.00 Compr ensive Internal Medicine Work Phone: Calcium mass conc 8.8 mg/dL Normal 8.5-10.1 Compreh ensive Internal Medicine Work Phone: Chloride molar conc 106 mmol/L Normal 98-107 Compr [facility] Internal Medicine Work Phone: CO2 molar conc 28.1 mmol/L Normal 21.0-32.0 Comprehen [facility] Internal Medicine Work Phone: Comment on above: Please Note Refer ence Interval Change Creatinine mass conc 0.6 mg/dL Normal 0.6-1.[address] [facility] Work Phone: Globulin (S) [Mass/Vol] 3.2 g/dL Normal 2.7-4.2 [facility] Work Phone: Comment on above: Please Note Refer ence Interval Change Globulin Calculated mass conc (S) 3.2 g/dL Normal 2.7-4.2 [facility] Internal Medicine Work Phone: Comment on above: Please Note Refer ence Interval Change Glucose mass conc 84 mg/dL Normal 70-110 Compreh ensive Internal Medicine Work Phone: Potassium molar conc 4.1 mmol/L Normal 3.5-5.1 Comp rehensive Internal Medicine Work Phone: Protein mass conc 7.1 g/dL Normal 6.4-8.2 Compreh ensive Internal Medicine Work Phone: Sodium molar conc 143 mmol/L Normal 136-145 Compreh ensive Internal Medicine Work Phone: Urea nitrogen mass conc 7 mg/dL Normal 7-18 [facility] Internal Medicine Work Phone: Urea nitrogen/Creatinine mass ratio 11.7 {RATIO} Normal 10-20 [facility] Work Phone: LIPIDOrdered By: Gerson alfaro on 06-13-2007 Cholesterol in HDL mass conc 45 mg/dL Normal [facility] Work Phone: Comment on above: Reference Range HDL <40 mg/dL Low HDL Cholesterol HDL >or= 60 mg/dL High HDL Cholesterol Cholesterol in LDL mass conc 82 mg/dL Normal 0-130 [facility] Work Phone: Cholesterol in VLDL mass conc 14 mg/dL Normal 5-40 [facility] Work Phone: Cholesterol mass conc 141 mg/dL Normal Com prehensive Internal Medicine Work Phone: Comment on above: <200 mg/dL Desirable 200-240 mg/dL Borderline >240 mg/dL High Risk Triglyceride mass conc 69 mg/dL Normal Co [facility] Internal Medicine Work Phone: Comment on above: Serum Triglycerides Reference Interval Normal <150 mg/dL Borderline high 150 - 199 mg/dL High 200 - 499 mg/dL Very High > or = 500 mg/dL LQD PAP [id number] By: stem Electroencephalographic Technologist on 04-27-2007 LQD PAP [id number] . Normal [facility] Internal Medicine Work Phone: Comment on above: CYTOLOGY INFORMATION :- CLINICAL INFORMATION: - DATE LMP/MENOPAUSE: MENOPAUSE- COLLECTION VIAL: Thin Prep Vial- DISASTER OR DAMAGE CONTROL SPECIALIST SOURCE: CERVICAL/ENDOCERVICAL- COLLECTION TECHNIQUE: BRUSH/SPATULA LQD PAP [id number] Comment Normal Comprehens [facility] Internal Medicine Work Phone: Comment on above: Satisfactory for sunday luation. Endocervical component may not bedistinguished in cases of atrophy. The HPV DNA reflex c constantino were not met with this specimenresult therefore, no HPV testing was performed. .Performed At: [address], [place] [id number] NEGATIVE FOR INTRAEP ITHELIAL LESION AND MALIGNANCY.CELLULAR CHANGES ASSOCIATED WITH ATROPHY ARE PRESENT. The Pap smear is a s creening test designed to aid in thedetection of premalignant and malignant conditions of theuterine cervix. It is not a diagnostic procedure andshould not be used as the sole means of detecting cervicalcancer. Both false-positive and false-negative reports dooccur. . Baudilio Bolden totechnologist (ASCP) CYTOLOGY INFORMATION :- CLINICAL INFORMATION: - DATE LMP/MENOPAUSE: MENOPAUSE- COLLECTION VIAL: Thin Prep Vial- DISASTER OR DAMAGE CONTROL SPECIALIST SOURCE: CERVICAL/ENDOCERVICAL- COLLECTION TECHNIQUE: BRUSH/SPATULA Vital Signs Date Time Vital Sign Value Performing Clinician Facility 12-13-2023 07:34-0400 Body height 157.[address] Nikky Tabor Work Phone: [facility] 12-13-2023 07:34-0400 Body mass index (BMI) [Ratio] 29.2 kg/m2 Dr. Nikky Tabor Work Phone: [facility] 12-13-2023 07:34-0400 Body temperature 97.2 [degF] Dr. Nikky Tabor Work Phone: [facility] 12-13-2023 07:34-0400 Body weight 72.[address] Nikky Tabor Work Phone: [facility] 12-13-2023 07:34-0400 Diastolic blood pressure 88 mm[Hg] Dr. Nikky Tabor Work Phone: [facility] 12-13-2023 07:34-0400 Heart rate 73 /min Dr. Nikky Tabor Work Phone: [facility] 12-13-2023 07:34-0400 Respiratory rate 18 /min Dr. Nikky Tabor Work Phone: [facility] 12-13-2023 07:34-0400 SaO2% (BldA) [Mass fraction] 96 % Dr. Nikky Tabor Work Phone: [facility] 12-13-2023 07:34-0400 Systolic blood pressure 143 mm[Hg] Dr. Nikky Tabor Work Phone: [facility] 10-15-2023 11:28-0500 Body temperature 97.3 [degF] Dr. Nikky Tabor Work Phone: [facility] 10-15-2023 11:28-0500 Diastolic blood pressure 80 mm[Hg] Dr. Nikky Tabor Work Phone: [facility] 10-15-2023 11:28-0500 Heart rate 68 /min Dr. Nikky Tabor Work Phone: [facility] 10-15-2023 11:28-0500 Respiratory rate 16 /min Dr. Nikky Tabor Work Phone: [facility] 10-15-2023 11:28-0500 SaO2% (BldA) [Mass fraction] 95 % Dr. Nikky Tabor Work Phone: [facility] 10-15-2023 11:28-0500 Systolic blood pressure 146 mm[Hg] Dr. Nikky Tabor Work Phone: [facility] 10-15-2023 09:15-0500 Body mass index (BMI) [Ratio] 29.1 kg/m2 Dr. Nikky Tabor Work Phone: [facility] 10-15-2023 09:15-0500 Body weight 72.[address] Nikky Tabor Work Phone: [facility] 10-12-2023 11:22-0500 Body mass index (BMI) [Ratio] 29.5 kg/m2 Dr. Nikky Tabor Work Phone: [facility] 10-12-2023 11:22-0500 Body weight 73.[address] Nikky Tabor Work Phone: [facility] 10-12-2023 11:22-0500 Diastolic blood pressure 72 mm[Hg] Dr. Nikky Tabor Work Phone: [facility] 10-12-2023 11:22-0500 Systolic blood pressure 140 mm[Hg] Dr. Nikky Tabor Work Phone: [facility] 08-18-2023 07:41-0500 Body height 157.[address] Nikky Tabor Work Phone: [facility] 08-18-2023 07:41-0500 Body mass index (BMI) [Ratio] 28.3 kg/m2 Dr. Nikky Tabor Work Phone: [facility] 08-18-2023 07:41-0500 Body temperature 97.4 [degF] Dr. Nikky Tabor Work Phone: [facility] 08-18-2023 07:41-0500 Body weight 70.[address] Nikky Tabor Work Phone: [facility] 08-18-2023 07:41-0500 Diastolic blood pressure 78 mm[Hg] Dr. Nikky Tabor Work Phone: [facility] 08-18-2023 07:41-0500 Heart rate 75 /min Dr. Nikky Tabor Work Phone: [facility] 08-18-2023 07:41-0500 Respiratory rate 18 /min Dr. Nikky Tabor Work Phone: [facility] 08-18-2023 07:41-0500 SaO2% (BldA) [Mass fraction] 97 % Dr. Nikky Tabor Work Phone: [facility] 08-18-2023 07:41-0500 Systolic blood pressure 146 mm[Hg] Dr. Nikky Tabor Work Phone: [facility] 07-06-2023 07:03-0400 Body mass index (BMI) [Ratio] 28.3 kg/m2 Dr. Nikky Tabor Work Phone: [facility] 07-06-2023 07:03-0400 Body temperature 96.6 [degF] Dr. Nikky Tabor Work Phone: [facility] 07-06-2023 07:03-0400 Body weight 70.[address] Nikky Tabor Work Phone: [facility] 07-06-2023 07:03-0400 Diastolic blood pressure 82 mm[Hg] Dr. Nikyk Tabor Work Phone: [facility] 07-06-2023 07:03-0400 Heart rate 89 /min Dr. Nikky Tabor Work Phone: [facility] 07-06-2023 07:03-0400 Respiratory rate 18 /min Dr. Nikky Tabor Work Phone: [facility] 07-06-2023 07:03-0400 SaO2% (BldA) [Mass fraction] 94 % Dr. Nikky Tabor Work Phone: [facility] 07-06-2023 07:03-0400 Systolic blood pressure 146 mm[Hg] Dr. Nikky Tabor Work Phone: [facility] 04-22-2023 07:55-0400 Body height 157.[address] Nikky Tabor Work Phone: [facility] 04-22-2023 07:55-0400 Body mass index (BMI) [Ratio] 28.1 kg/m2 Dr. Nikky Tabor Work Phone: [facility] 04-22-2023 07:55-0400 Body temperature 97.6 [degF] Dr. Nikky Tabor Work Phone: [facility] 04-22-2023 07:55-0400 Body weight 69.[address] Nikky Tabor Work Phone: [facility] 04-22-2023 07:55-0400 Diastolic blood pressure 82 mm[Hg] Dr. Nikky Tabor Work Phone: [facility] 04-22-2023 07:55-0400 Heart rate 72 /min Dr. Nikky Tabor Work Phone: [facility] 04-22-2023 07:55-0400 Respiratory rate 18 /min Dr. Nikky Tabor Work Phone: [facility] 04-22-2023 07:55-0400 SaO2% (BldA) [Mass fraction] 96 % Dr. Nikky Tabor Work Phone: [facility] 04-22-2023 07:55-0400 Systolic blood pressure 144 mm[Hg] Dr. Nikky Tabor Work Phone: [facility] 04-01-2023 13:59-0400 Body height 157.[address] Nikky Tabor Work Phone: [facility] 03-16-2023 10:10-0400 Body mass index (BMI) [Ratio] 28.3 kg/m2 Dr. Nikky Tabor Work Phone: [facility] 03-16-2023 10:10-0400 Body temperature 97.4 [degF] Dr. Nikky Tabor Work Phone: [facility] 03-16-2023 10:10-0400 Body weight 70.[address] Nikky Tabor Work Phone: [facility] 03-16-2023 10:10-0400 Diastolic blood pressure 87 mm[Hg] Dr. Nikky Tabor Work Phone: [facility] 03-16-2023 10:10-0400 Heart rate 73 /min Dr. Nikky Tabor Work Phone: [facility] 03-16-2023 10:10-0400 Respiratory rate 15 /min Dr. Nikky Tabor Work Phone: [facility] 03-16-2023 10:10-0400 SaO2% (BldA) [Mass fraction] 96 % Dr. Nikky Tabor Work Phone: [facility] 03-16-2023 10:10-0400 Systolic blood pressure 137 mm[Hg] Dr. Nikky Tabor Work Phone: [facility] 01-13-2023 10:05-0400 Body height 160.02 cm Nikky Tabor DO Work Phone: [facility] Work Phone: 01-13-2023 10:05-0400 Body mass index (BMI) [Ratio] 27.99 kg/m2 Nikky Tabor DO Work Phone: [facility]; [facility] Work Phone: 01-13-2023 10:05-0400 Body surface area Derived from formula 1.75 m2 Nikky Tabor DO Work Phone: [facility]; [facility] Work Phone: 01-13-2023 10:05-0400 Body temperature 96.7 [degF] Brittnee Kruger MA [facility]; [facility] Work Phone: 01-13-2023 10:05-0400 Body weight 71.67 kg Nikky Tabor DO Work Phone: [facility]; [facility] Work Phone: 01-13-2023 10:05-0400 Diastolic blood pressure 60 mm[Hg] Brittnee Kruger MA [facility]; [facility] Work Phone: 01-13-2023 10:05-0400 Heart rate 76 /min Brittnee Kruger MA [facility]; [facility] Work Phone: 01-13-2023 10:05-0400 SaO2% (BldA) [Mass fraction] 98 % Brittnee Kruger MA [facility]; [facility] Work Phone: 01-13-2023 10:05-0400 Systolic blood pressure 122 mm[Hg] Brittnee Kruger MA [facility]; [facility] Work Phone: 01-08-2023 13:18-0400 Body height 157.[address] Nikky Tabor Work Phone: [facility] 01-08-2023 13:16-0400 Body mass index (BMI) [Ratio] 28.3 kg/m2 Dr. Nikky Tabor Work Phone: [facility] 01-08-2023 13:16-0400 Body temperature 97.7 [degF] Dr. Nikky Tabor Work Phone: [facility] 01-08-2023 13:16-0400 Body weight 70.[address] Nikky Tabor Work Phone: [facility] 01-08-2023 13:16-0400 Diastolic blood pressure 78 mm[Hg] Dr. Nikky Tabor Work Phone: [facility] 01-08-2023 13:16-0400 Heart rate 86 /min Dr. Nikky Tabor Work Phone: [facility] 01-08-2023 13:16-0400 Respiratory rate 18 /min Dr. Nikky Tabor Work Phone: [facility] 01-08-2023 13:16-0400 SaO2% (BldA) [Mass fraction] 96 % Dr. Nikky Tabor Work Phone: [facility] 01-08-2023 13:16-0400 Systolic blood pressure 136 mm[Hg] Dr. Nikky Tabor Work Phone: [facility] 12-19-2022 19:02-0400 Diastolic blood pressure 87 mm[Hg] Dr. Nikky Tabor Work Phone: [facility] 12-19-2022 19:02-0400 Heart rate 88 /min Dr. Nikky Tabor Work Phone: [facility] 12-19-2022 19:02-0400 Respiratory rate 16 /min Dr. Nikky Tabor Work Phone: [facility] 12-19-2022 19:02-0400 SaO2% (BldA) [Mass fraction] 99 % Dr. Nikky Tabor Work Phone: [facility] 12-19-2022 19:02-0400 Systolic blood pressure 132 mm[Hg] Dr. Nikky Tabor Work Phone: [facility] 12-19-2022 14:41-0400 Body height 157.[address] Nikky Tabor Work Phone: [facility] 12-19-2022 14:41-0400 Body mass index (BMI) [Ratio] 28.3 kg/m2 Dr. Nikky Tabor Work Phone: [facility] 12-19-2022 14:41-0400 Body temperature 98 [degF] Dr. Nikky Tabor Work Phone: [facility] 12-19-2022 14:41-0400 Body weight 70.[address] Nikky Tabor Work Phone: [facility] 10-22-2022 12:58-0500 Body height 157.[address] Nikky Tabor Work Phone: [facility] 10-22-2022 12:54-0500 Body mass index (BMI) [Ratio] 28.9 kg/m2 Dr. Nikky Tabor Work Phone: [facility] 10-22-2022 12:54-0500 Body temperature 97.5 [degF] Dr. Nikky Tabor Work Phone: [facility] 10-22-2022 12:54-0500 Body weight 71.[address] Nikky Tabor Work Phone: [facility] 10-22-2022 12:54-0500 Diastolic blood pressure 74 mm[Hg] Dr. Nikky Tabor Work Phone: [facility] 10-22-2022 12:54-0500 Heart rate 87 /min Dr. Nikky Tabor Work Phone: [facility] 10-22-2022 12:54-0500 Respiratory rate 18 /min Dr. Nikky Tabor Work Phone: [facility] 10-22-2022 12:54-0500 SaO2% (BldA) [Mass fraction] 96 % Dr. Nikky Tabor Work Phone: [facility] 10-22-2022 12:54-0500 Systolic blood pressure 132 mm[Hg] Dr. Nikky Tabor Work Phone: [facility] 10-07-2022 10:56-0500 Body mass index (BMI) [Ratio] 29.1 kg/m2 Dr. Nikky Tabor Work Phone: [facility] 10-07-2022 10:56-0500 Body weight 72.[address] Nikky Tabor Work Phone: [facility] 10-07-2022 10:56-0500 Diastolic blood pressure 78 mm[Hg] Dr. Nikky Tabor Work Phone: [facility] 10-07-2022 10:56-0500 Systolic blood pressure 138 mm[Hg] Dr. Nikky Tabor Work Phone: [facility] 10-07-2022 08:30-0500 [facility] Work Phone: 10-07-2022 08:30-0500 Body mass index (BMI) [Ratio] [facility] Work Phone: 10-07-2022 08:30-0500 Body surface area Derived from formula 1.75 m2 Sade [facility]; [facility] Work Phone: 10-07-2022 08:30-0500 Body temperature 96.9 [degF] Kayela [place] [employer] [facility]; [facility] Work Phone: 10-07-2022 08:30-0500 Body weight 71.73 kg [facility]; [facility] Work Phone: 10-07-2022 08:30-0500 Diastolic blood pressure 68 mm[Hg] [facility]; [facility] Work Phone: 10-07-2022 08:30-0500 Heart rate 74 /min [facility]; [facility] Work Phone: 10-07-2022 08:30-0500 Respiratory rate 16 /min [facility]; [facility] Work Phone: 10-07-2022 08:30-0500 SaO2% (BldA) [Mass fraction] 97 % [facility]; [facility] Work Phone: 10-07-2022 08:30-0500 Systolic blood pressure 114 mm[Hg] [facility]; [facility] Work Phone: 08-14-2022 09:11-0500 Body height 160.02 cm Adama Alonso LPN [facility]; [facility] Work Phone: 08-14-2022 09:11-0500 Body mass index (BMI) [Ratio] 28.66 kg/m2 Adama Alonso LPN [facility]; [facility] Work Phone: 08-14-2022 09:11-0500 Body surface area Derived from formula 1.77 m2 Adama Alonso LPN [facility]; [facility] Work Phone: 08-14-2022 09:11-0500 Body temperature 96.9 [degF] Adama Alonso LPN [facility]; [facility] Work Phone: 08-14-2022 09:11-0500 Body weight 73.39 kg Adama Alonso LPN [facility]; [facility] Work Phone: 08-14-2022 09:11-0500 Diastolic blood pressure 78 mm[Hg] Adama Alonso LPN [facility]; [facility] Work Phone: 08-14-2022 09:11-0500 Heart rate 86 /min Adama Alonso LPN [facility]; [facility] Work Phone: 08-14-2022 09:11-0500 Respiratory rate 16 /min Adama Alonso LPN [facility]; [facility] Work Phone: 08-14-2022 09:11-0500 SaO2% (BldA) [Mass fraction] 97 % Adama Alonso [employer] [facility]; [facility] Work Phone: 08-14-2022 09:11-0500 Systolic blood pressure 124 mm[Hg] Adama Alosno LPN [facility]; [facility] Work Phone: 07-15-2022 09:23-0500 Body height 160.02 cm Sade [facility]; [facility] Work Phone: 07-15-2022 09:23-0500 Body mass index (BMI) [Ratio] 28[facility]; [facility] Work Phone: 07-15-2022 09:23-0500 Body surface area Derived from formula 1.[address] [facility]; [facility] Work Phone: 07-15-2022 09:23-0500 Body temperature 98.1 [degF] [facility]; [facility] Work Phone: 07-15-2022 09:23-0500 Body weight 73.94 kg Sade [facility]; [facility] Work Phone: 07-15-2022 09:23-0500 Diastolic blood pressure 80 mm[Hg] Sade [facility]; [facility] Work Phone: 07-15-2022 09:23-0500 Heart rate 75 /min [facility]; [facility] Work Phone: 07-15-2022 09:23-0500 Respiratory rate 16 /min [facility]; [facility] Work Phone: 07-15-2022 09:23-0500 SaO2% (BldA) [Mass fraction] 95 % [facility]; [facility] Work Phone: 07-15-2022 09:23-0500 Systolic blood pressure 138 mm[Hg] [facility]; [facility] Work Phone: 07-06-2022 08:14-0400 Body height 160.02 cm Nikky Sharona DO Work Phone: [facility]; [facility] Work Phone: 07-06-2022 08:14-0400 Body mass index (BMI) [Ratio] 28.79 kg/m2 Nikky Sharona DO Work Phone: [facility]; [facility] Work Phone: 07-06-2022 08:14-0400 Body surface area Derived from formula 1.77 m2 Nikky Sharona DO Work Phone: [facility]; [facility] Work Phone: 07-06-2022 08:14-0400 Body temperature 97.9 [degF] Nikky Sharona DO Work Phone: [facility]; [facility] Work Phone: 07-06-2022 08:14-0400 Body weight 73.71 kg Nikky Sharona DO Work Phone: [facility]; [facility] Work Phone: 07-06-2022 08:14-0400 Diastolic blood pressure 70 mm[Hg] Nikky Sharona DO Work Phone: [facility]; [facility] Work Phone: 07-06-2022 08:14-0400 Heart rate 71 /min Nikky Sharona DO Work Phone: [facility]; [facility] Work Phone: 07-06-2022 08:14-0400 Respiratory rate 16 /min Nikky Avendanoon DO Work Phone: [facility]; [facility] Work Phone: 07-06-2022 08:14-0400 SaO2% (BldA) [Mass fraction] 95 % Nikky Sharona DO Work Phone: [facility]; [facility] Work Phone: 07-06-2022 08:14-0400 Systolic blood pressure 130 mm[Hg] Nikky Sharona DO Work Phone: [facility]; [facility] Work Phone: 05-05-2022 14:56-0400 Body height 160.02 cm Millie Green LPN [facility]; [facility] Work Phone: 05-05-2022 14:56-0400 Body mass index (BMI) [Ratio] 27.32 kg/m2 Millie Green LPN [facility]; [facility] Work Phone: 05-05-2022 14:56-0400 Body surface area Derived from formula 1.73 m2 Millie Green LPN [facility]; [facility] Work Phone: 05-05-2022 14:56-0400 Body temperature 97.8 [degF] Millie Green LPN [facility]; [facility] Work Phone: 05-05-2022 14:56-0400 Body weight 69.97 kg Millie Green LPN [facility]; [facility] Work Phone: 05-05-2022 14:56-0400 Diastolic blood pressure 80 mm[Hg] Millie Green LPN [facility]; [facility] Work Phone: 05-05-2022 14:56-0400 Heart rate 82 /min Millie Green LPN [facility]; [facility] Work Phone: 05-05-2022 14:56-0400 Respiratory rate 16 /min Milliebaudilio Green [employer] [facility]; [facility] Work Phone: 05-05-2022 14:56-0400 SaO2% (BldA) [Mass fraction] 95 % Milliebaudilio Green [employer] [facility]; [facility] Work Phone: 05-05-2022 14:56-0400 Systolic blood pressure 142 mm[Hg] Milliebaudilio Green [employer] [facility]; [facility] Work Phone: 03-13-2022 07:45-0400 Body height 160.02 cm Millie Peter [employer] [facility]; [facility] Work Phone: 03-13-2022 07:45-0400 Body mass index (BMI) [Ratio] 27.32 kg/m2 Millie Peter LPN [facility]; [facility] Work Phone: 03-13-2022 07:45-0400 Body surface area Derived from formula 1.73 m2 Millie Peter LPN [facility]; [facility] Work Phone: 03-13-2022 07:45-0400 Body temperature 97.9 [degF] Milliebaudilio Green [employer] [facility]; [facility] Work Phone: 03-13-2022 07:45-0400 Body weight 69.97 kg Millie Peter LPN [facility]; [facility] Work Phone: 03-13-2022 07:45-0400 Diastolic blood pressure 84 mm[Hg] Millie Green LPN [facility]; [facility] Work Phone: 03-13-2022 07:45-0400 Heart rate 76 /min Millie Peter LPN [facility]; [facility] Work Phone: 03-13-2022 07:45-0400 Respiratory rate 16 /min Millie Green LPN [facility]; [facility] Work Phone: 03-13-2022 07:45-0400 SaO2% (BldA) [Mass fraction] 97 % Millie Green [employer] [facility]; [facility] Work Phone: 03-13-2022 07:45-0400 Systolic blood pressure 130 mm[Hg] Millie Green [employer] [facility]; [facility] Work Phone: 01-01-2022 07:58-0400 Body height 160.02 cm Nikky Sharona DO Work Phone: [facility]; [facility] Work Phone: 01-01-2022 07:58-0400 Body mass index (BMI) [Ratio] 26.84 kg/m2 Nikky Sharona DO Work Phone: [facility]; [facility] Work Phone: 01-01-2022 07:58-0400 Body surface area Derived from formula 1.72 m2 Nikky Sharona DO Work Phone: [facility]; [facility] Work Phone: 01-01-2022 07:58-0400 Body temperature 97.3 [degF] Nikky Sharona DO Work Phone: [facility]; [facility] Work Phone: 01-01-2022 07:58-0400 Body weight 68.72 kg Nikky Sharona DO Work Phone: [facility]; [facility] Work Phone: 01-01-2022 07:58-0400 Diastolic blood pressure 70 mm[Hg] Nikky Sharona DO Work Phone: [facility]; [facility] Work Phone: 01-01-2022 07:58-0400 Heart rate 80 /min Nikky Sharona DO Work Phone: [facility]; [facility] Work Phone: 01-01-2022 07:58-0400 Systolic blood pressure 128 mm[Hg] Nikky Tabor DO Work Phone: [facility]; [facility] Work Phone: 12-24-2021 08:05-0400 Body height 160.[address] [facility]; [facility] Work Phone: 12-24-2021 08:05-0400 Body mass index (BMI) [Ratio] 26.84 kg/m2 Tamela [facility]; [facility] Work Phone: 12-24-2021 08:05-0400 Body surface area Derived from formula 1.72 m2 Tamela [facility]; [facility] Work Phone: 12-24-2021 08:05-0400 Body weight 68.72 kg Tamelabrian Bang [facility]; [facility] Work Phone: 10-06-2021 09:12-0500 Body height 157.[address] Nikky Tabor Work Phone: [facility] Work Phone: 10-06-2021 09:12-0500 Body mass index (BMI) [Ratio] 29.1 kg/m2 Dr. Nikky Tabor Work Phone: [facility] Work Phone: 10-06-2021 09:12-0500 Body weight 72.[address] Nikky Tabor Work Phone: [facility] Work Phone: 10-06-2021 09:12-0500 Diastolic blood pressure 76 mm[Hg] Dr. Nikky Tabor Work Phone: [facility] Work Phone: 10-06-2021 09:12-0500 Systolic blood pressure 130 mm[Hg] Dr. Nikky Tabor Work Phone: [facility] Work Phone: 06-18-2021 08:10-0400 Body height 160.02 cm Millie Green LPN [facility]; [facility] Work Phone: 06-18-2021 08:10-0400 Body mass index (BMI) [Ratio] 26.84 kg/m2 Millie Green [employer] [facility]; [facility] Work Phone: 06-18-2021 08:10-0400 Body surface area Derived from formula 1.72 m2 Millie Green [employer] [facility]; [facility] Work Phone: 06-18-2021 08:10-0400 Body temperature 97.1 [degF] Millie Green [employer] [facility]; [facility] Work Phone: 06-18-2021 08:10-0400 Body weight 68.72 kg Millie Green [employer] [facility]; [facility] Work Phone: 06-18-2021 08:10-0400 Diastolic blood pressure 74 mm[Hg] Millie Green [employer] [facility]; [facility] Work Phone: 06-18-2021 08:10-0400 Heart rate 64 /min Millie Green [facility]; [facility] Work Phone: 06-18-2021 08:10-0400 Respiratory rate 16 /min Millie Green [facility]; [facility] Work Phone: 06-18-2021 08:10-0400 SaO2% (BldA) [Mass fraction] 97 % Millie Green [facility]; [facility] Work Phone: 06-18-2021 08:10-0400 Systolic blood pressure 128 mm[Hg] Millie Green [employer] [facility]; [facility] Work Phone: 12-23-2020 08:41-0400 [facility] Work Phone: 12-23-2020 08:41-0400 Body mass index (BMI) [Ratio] 28.03 kg/m2 [place] Cross [employer] [facility]; [facility] Work Phone: 12-23-2020 08:41-0400 Body surface area Derived from formula 1.75 m2 [facility]; [facility] Work Phone: 12-23-2020 08:41-0400 Body weight 71.78 kg [facility]; [facility] Work Phone: 12-11-2020 08:34-0400 BMI (Body Mass Index) 28.03 kg/m2 Tamela Bang [facility]; [facility] Work Phone: 12-11-2020 08:34-0400 Body Temperature 96.8 [degF] Tamela Bang [facility]; [facility] Work Phone: Comment on above: Method: Infrared 12-11-2020 08:34-0400 Body weight 71.[address] [facility]; [facility] Work Phone: 12-11-2020 08:34-0400 BP Diastolic 82 mm[Hg] Tamela Bang [facility]; [facility] Work Phone: Comment on above: Patient Position: Sitting; Cuff Location : Left Arm; Cuff Size: Standard 12-11-2020 08:34-0400 BP Systolic 130 mm[Hg] Tamela Bang [facility]; [facility] Work Phone: Comment on above: Patient Position: Sitting; Cuff Location : Left Arm; Cuff Size: Standard 12-11-2020 08:34-0400 BSA (Body Surface Area) 1.[address] [facility]; [facility] Work Phone: 12-11-2020 08:34-0400 Height 160.[address] [facility]; [facility] Work Phone: 12-11-2020 08:34-0400 Pulse (Heart Rate) 68 /min Tamela Mcclainius [facility]; [facility] Work Phone: Comment on above: Pattern: Regular 12-11-2020 08:34-0400 Pulse Oximetry 99 % Nikky Tabor [facility]; [facility] Work Phone: Comment on above: Room air 12-11-2020 08:34-0400 Respiratory Rate 16 /min Tamela Bang [facility]; [facility] Work Phone: Comment on above: Pattern: Unlabored 12-11-2020 08:34-0400 SaO2% (BldA) [Mass fraction] 99 % Tamela Sarahiius [facility]; [facility] Work Phone: Comment on above: Room air 07-18-2020 09:53-0500 BMI (Body Mass Index) 28.03 kg/m2 Tamela Mcclainius [facility] Work Phone: 07-18-2020 09:53-0500 Body weight 71.[address] [facility] Work Phone: 07-18-2020 09:53-0500 BSA (Body Surface Area) 1.[address] [facility] Work Phone: 07-18-2020 09:53-0500 Height 160.[address] [facility] Work Phone: 07-11-2020 09:03-0500 BMI (Body Mass Index) 28.03 [facility] Work Phone: 07-11-2020 09:03-0500 Body weight 71.78 kg [facility] Work Phone: 07-11-2020 09:03-0500 BSA (Body Surface Area) 1.75 m2 [facility] Work Phone: 07-11-2020 09:03-0500 Height 160.02 cm [facility] Work Phone: 06-12-2020 09:04-0400 BMI (Body Mass Index) 28.03 kg/m2 Millie Green [employer] [facility] Work Phone: 06-12-2020 09:04-0400 Body Temperature 97.3 [degF] Milliebaudilio Green [employer] [facility] Work Phone: Comment on above: Method: Temporal 06-12-2020 09:04-0400 Body weight 71.78 kg Millie Green [employer] [facility] Work Phone: 06-12-2020 09:04-0400 BP Diastolic 82 mm[Hg] Milliebaudiloi Green [employer] [facility] Work Phone: Comment on above: Patient Position: Sitting; Cuff Location : Left Arm; Cuff Size: Standard 06-12-2020 09:04-0400 BP Systolic 134 mm[Hg] Milliebaudilio Green [employer] [facility] Work Phone: Comment on above: Patient Position: Sitting; Cuff Location : Left Arm; Cuff Size: Standard 06-12-2020 09:04-0400 BSA (Body Surface Area) 1.75 m2 Millie Peter LPN [facility] Work Phone: 06-12-2020 09:04-0400 Height 160.02 cm Millie Green LPN [facility] Work Phone: 06-12-2020 09:04-0400 Pulse (Heart Rate) 78 /min Millie Green LPN [facility] Work Phone: Comment on above: Pattern: Regular 06-12-2020 09:04-0400 Pulse Oximetry 97 % Nikky Tabor [facility] Work Phone: Comment on above: Room air 06-12-2020 09:04-0400 Respiratory Rate 16 /min Milliebaudilio Green [employer] [facility] Work Phone: Comment on above: Pattern: Unlabored 06-12-2020 09:04-0400 SaO2% (BldA) [Mass fraction] 97 % Millie Green LPN [facility]; [facility] Work Phone: Comment on above: Room air 04-29-2020 10:05-0400 BMI (Body Mass Index) 27.29 kg/m2 Adama Alonso LPN [facility] Work Phone: 04-29-2020 10:05-0400 Body Temperature 97.4 [degF] Adama Gavin DOUGLASS [facility] Work Phone: Comment on above: Method: Infrared 04-29-2020 10:05-0400 Body weight 69.87 kg Adama Alonso LPN [facility] Work Phone: 04-29-2020 10:05-0400 BP Diastolic 78 mm[Hg] Adama Alonso LPN [facility] Work Phone: Comment on above: Patient Position: Sitting; Cuff Location : Left Arm; Cuff Size: Standard 04-29-2020 10:05-0400 BP Systolic 132 mm[Hg] Adama Alonso LPN [facility] Work Phone: Comment on above: Patient Position: Sitting; Cuff Location : Left Arm; Cuff Size: Standard 04-29-2020 10:05-0400 BSA (Body Surface Area) 1.73 m2 Adama Alonso LPN [facility] Work Phone: 04-29-2020 10:05-0400 Height 160.02 cm Adama Alonso LPN [facility] Work Phone: 04-29-2020 10:05-0400 Pulse (Heart Rate) 82 /min Adama Alonso LPN [facility] Work Phone: Comment on above: Pattern: Regular 04-29-2020 10:05-0400 Pulse Oximetry 96 % Nikky Tabor [facility] Work Phone: Comment on above: Room air 04-29-2020 10:05-0400 Respiratory Rate 16 /min Adama Alonso LPN [facility] Work Phone: Comment on above: Pattern: Unlabored 04-29-2020 10:05-0400 SaO2% (BldA) [Mass fraction] 96 % Adama Alonso LPN [facility]; [facility] Work Phone: Comment on above: Room air 12-21-2019 09:21-0400 BMI (Body Mass Index) 27.46 kg/m2 Tamela Bang [facility] Work Phone: Comment on above: no vitals virtural visit 12-21-2019 09:21-0400 Body weight 70.31 kg Tamela Bang [facility] Medicine Work Phone: Comment on above: no vitals virtural visit 12-21-2019 09:21-0400 BSA (Body Surface Area) 1.74 m2 Tamela Bang [facility] Work Phone: Comment on above: no vitals virtural visit 12-21-2019 09:21-0400 Height 160.02 cm Tamela Bang [facility] Work Phone: Comment on above: no vitals virtural visit 12-07-2019 08:43-0400 BMI (Body Mass Index) 27.46 kg/m2 June Robertson RN [facility] Internal Medicine Work Phone: Comment on above: not check pulse or temp but says no temp 12-07-2019 08:43-0400 Body weight 70.31 kg June Robertson RN [facility] Medicine Work Phone: Comment on above: not check pulse or temp but says no temp 12-07-2019 08:43-0400 BP Diastolic 79 mm[Hg] June Robertson RN [facility] Work Phone: Comment on above: Patient Position: Sitting; Cuff Location : Left Arm; Cuff Size: Standard not check pulse or t emp but says no temp 12-07-2019 08:43-0400 BP Systolic 124 mm[Hg] June Robertson RN [facility] Work Phone: Comment on above: Patient Position: Sitting; Cuff Location : Left Arm; Cuff Size: Standard not check pulse or t emp but says no temp 12-07-2019 08:43-0400 BSA (Body Surface Area) 1.74 m2 June Robertson RN [facility] Medicine Work Phone: Comment on above: not check pulse or temp but says no temp 12-07-2019 08:43-0400 Height 160.02 cm June Robertson RN [facility] Work Phone: Comment on above: not check pulse or temp but says no temp 11-16-2019 09:16-0400 BMI (Body Mass Index) 27.66 kg/m2 Tamela Bang [facility] Work Phone: 11-16-2019 09:16-0400 Body Temperature 96.5 [degF] Tamela Bang [facility] Work Phone: Comment on above: Method: Temporal 11-16-2019 09:16-0400 Body weight 70.82 kg Tamela Bang [facility] Work Phone: 11-16-2019 09:16-0400 BP Diastolic 92 mm[Hg] Tamela Bang [facility] Work Phone: Comment on above: Patient Position: Sitting; Cuff Location : Left Arm; Cuff Size: Standard 11-16-2019 09:16-0400 BP Systolic 148 mm[Hg] Tamela Bang [facility] Work Phone: Comment on above: Patient Position: Sitting; Cuff Location : Left Arm; Cuff Size: Standard 11-16-2019 09:16-0400 BSA (Body Surface Area) 1.74 m2 Tamela Bang [facility] Work Phone: 11-16-2019 09:16-0400 Height 160.02 cm Tamela Bang [facility] Work Phone: 11-16-2019 09:16-0400 Pulse (Heart Rate) 76 /min Tamela Bang [facility] Work Phone: Comment on above: Pattern: Regular 11-16-2019 09:16-0400 Pulse Oximetry 98 % Nikky Tabor [facility] Work Phone: Comment on above: Room air 11-16-2019 09:16-0400 Respiratory Rate 16 /min Tamela Bang [facility] Work Phone: Comment on above: Pattern: Unlabored 11-16-2019 09:16-0400 SaO2% (BldA) [Mass fraction] 98 % Tamela Bang [facility]; [facility] Work Phone: Comment on above: Room air 09-07-2019 09:32-0500 BMI (Body Mass Index) 28.54 kg/m2 Kathy Rivera RN [facility] Work Phone: 09-07-2019 09:32-0500 Body Temperature 97.2 [degF] Kathy Rivera RN [facility] Work Phone: Comment on above: Method: Temporal 09-07-2019 09:32-0500 Body weight 73.09 kg Kathy Rivera RN [facility] Work Phone: 09-07-2019 09:32-0500 BP Diastolic 84 mm[Hg] Kathy Rivera RN [facility] Work Phone: Comment on above: Patient Position: Sitting; Cuff Location : Left Arm; Cuff Size: Large 09-07-2019 09:32-0500 BP Systolic 162 mm[Hg] Kathy Rivera RN [facility] Work Phone: Comment on above: Patient Position: Sitting; Cuff Location : Left Arm; Cuff Size: Large 09-07-2019 09:32-0500 BSA (Body Surface Area) 1.76 m2 Kathy Rivera RN [facility] Work Phone: 09-07-2019 09:32-0500 Height 160.02 cm Kathy Rivera RN [facility] Work Phone: 09-07-2019 09:32-0500 Pulse (Heart Rate) 90 /min Kathy Rivrea RN [facility] Work Phone: Comment on above: Pattern: Regular 09-07-2019 09:32-0500 Pulse Oximetry 93 % Nikky Tabor [facility] Work Phone: Comment on above: Room air 09-07-2019 09:32-0500 Respiratory Rate 16 /min Kathy Rivera RN [facility] Work Phone: Comment on above: Pattern: Unlabored 09-07-2019 09:32-0500 SaO2% (BldA) [Mass fraction] 93 % Kathy Rivera RN [facility]; [facility] Work Phone: Comment on above: Room air 11-14-2018 09:05-0400 BMI (Body Mass Index) 28.54 kg/m2 Kathy Rivera RN [facility] Work Phone: Comment on above: hearing wnlDr. Sai and had a glaucom a test done 11-14-2018 09:05-0400 Body weight 73.09 kg Kathy Rivera RN [facility] Work Phone: Comment on above: hearing wnlDr. Sai and had a glaucom a test done 11-14-2018 09:05-0400 BP Diastolic 80 mm[Hg] Kathy Rivera RN [facility] Work Phone: Comment on above: Patient Position: Sitting; Cuff Location : Left Arm; Cuff Size: Large hearing wnlDr. Shelton rodriguez and had a glaucoma test done 11-14-2018 09:05-0400 BP Systolic 140 mm[Hg] Kathy Rivera RN [facility] Work Phone: Comment on above: Patient Position: Sitting; Cuff Location : Left Arm; Cuff Size: Large hearing wnlDr. Shelton dy and had a glaucoma test done 11-14-2018 09:05-0400 BSA (Body Surface Area) 1.76 m2 Kathy Rivera RN [facility] Work Phone: Comment on above: hearing wnlDr. Sai and had a glaucom a test done 11-14-2018 09:05-0400 Height 160.02 cm Kathy Rivera RN [facility] Work Phone: Comment on above: hearing wnlDr. Sai and had a glaucom a test done 11-14-2018 09:05-0400 Pulse (Heart Rate) 83 /min Kathy Rivera RN [facility] Work Phone: Comment on above: Pattern: Regular hearing wnlDr. Shelton dy and had a glaucoma test done 11-14-2018 09:05-0400 Pulse Oximetry 96 % Nikky Tabor [facility] Work Phone: Comment on above: Room air hearing wnlDr. Shelton dy and had a glaucoma test done 11-14-2018 09:05-0400 Respiratory Rate 18 /min Kathy Rivera RN [facility] Work Phone: Comment on above: Pattern: Unlabored hearing wnlDr. Shelton dy and had a glaucoma test done 11-14-2018 09:05-0400 SaO2% (BldA) [Mass fraction] 96 % Kathy Rivera RN [facility]; [facility] Work Phone: Comment on above: Room air hearing wnlDrRenee rodriguez and had a glaucoma test done 09-14-2018 10:57-0500 BMI (Body Mass Index) 28.7 kg/m2 Kathy Rivera RN [facility] Work Phone: 09-14-2018 10:57-0500 Body weight 73.48 kg Kathy Rivera RN [facility] Work Phone: 09-14-2018 10:57-0500 BP Diastolic 80 mm[Hg] Kathy Rivera RN [facility] Work Phone: Comment on above: Patient Position: Sitting; Cuff Location : Left Arm; Cuff Size: Large 09-14-2018 10:57-0500 BP Systolic 148 mm[Hg] Kathy Rivera RN [facility] Work Phone: Comment on above: Patient Position: Sitting; Cuff Location : Left Arm; Cuff Size: Large 09-14-2018 10:57-0500 BSA (Body Surface Area) 1.77 m2 Kathy Rivera RN [facility] Work Phone: 09-14-2018 10:57-0500 Height 160.02 cm Kathy Rivera RN [facility] Work Phone: 09-14-2018 10:57-0500 Pulse (Heart Rate) 75 /min Kathy Rivera RN [facility] Work Phone: Comment on above: Pattern: Regular 09-14-2018 10:57-0500 Pulse Oximetry 98 % Nikky Tabor [facility] Work Phone: Comment on above: Room air 09-14-2018 10:57-0500 Respiratory Rate 18 /min Kathy Rivera RN [facility] Work Phone: Comment on above: Pattern: Unlabored 09-14-2018 10:57-0500 SaO2% (BldA) [Mass fraction] 98 % Kathy Rivera RN [facility]; [facility] Work Phone: Comment on above: Room air 09-14-2018 10:57-0500 Weight 73.48 kg Nikky Tabor [facility] Work Phone: 07-04-2018 10:10-0400 BMI (Body Mass Index) 27.81 kg/m2 Kathy Rivera RN [facility] Work Phone: 07-04-2018 10:10-0400 Body weight 71.22 kg Kathy Rivera RN [facility] Work Phone: 07-04-2018 10:10-0400 BP Diastolic 82 mm[Hg] Kathy Rivera RN [facility] Work Phone: Comment on above: Patient Position: Sitting; Cuff Location : Left Arm; Cuff Size: Large 07-04-2018 10:10-0400 BP Systolic 142 mm[Hg] Kathy Rivera RN [facility] Work Phone: Comment on above: Patient Position: Sitting; Cuff Location : Left Arm; Cuff Size: Large 07-04-2018 10:10-0400 BSA (Body Surface Area) 1.74 m2 Kathy Rivera RN [facility] Work Phone: 07-04-2018 10:10-0400 Height 160.02 cm Kathy Rivera RN [facility] Work Phone: 07-04-2018 10:10-0400 Pulse (Heart Rate) 74 /min Kathy Rivera RN [facility] Work Phone: Comment on above: Pattern: Regular 07-04-2018 10:10-0400 Pulse Oximetry 98 % Nikky Tabor [facility] Work Phone: Comment on above: Room air 07-04-2018 10:10-0400 Respiratory Rate 18 /min Kathy Rivera RN [facility] Work Phone: Comment on above: Pattern: Unlabored 07-04-2018 10:10-0400 SaO2% (BldA) [Mass fraction] 98 % Kathy Rivrea RN [facility]; [facility] Work Phone: Comment on above: Room air 07-04-2018 10:10-0400 Weight 71.22 kg Nikky Tabor [facility] Work Phone: 06-14-2018 08:53-0400 BMI (Body Mass Index) 27.32 kg/m2 Cece Santillan [facility] Work Phone: 06-14-2018 08:53-0400 Body Temperature 97.9 [degF] Cece Santillan [facility] Work Phone: Comment on above: Method: Temporal 06-14-2018 08:53-0400 Body weight 69.97 kg Cece Santillan [facility] Work Phone: 06-14-2018 08:53-0400 BP Diastolic 82 mm[Hg] Cece Santillan [facility] Work Phone: Comment on above: Patient Position: Sitting; Cuff Location : Left Arm; Cuff Size: Standard 06-14-2018 08:53-0400 BP Systolic 132 mm[Hg] Cece Santillan [facility] Work Phone: Comment on above: Patient Position: Sitting; Cuff Location : Left Arm; Cuff Size: Standard 06-14-2018 08:53-0400 BSA (Body Surface Area) 1.73 m2 Cece Santillan [facility] Work Phone: 06-14-2018 08:53-0400 Height 160.02 cm Cece Santillan [facility] Work Phone: 06-14-2018 08:53-0400 Pulse (Heart Rate) 94 /min Cece Santillan [facility] Work Phone: Comment on above: Pattern: Regular 06-14-2018 08:53-0400 Pulse Oximetry 92 % Nikky Tabor [facility] Work Phone: Comment on above: Room air 06-14-2018 08:53-0400 Respiratory Rate 18 /min Cece Santillan [facility] Work Phone: Comment on above: Pattern: Unlabored 06-14-2018 08:53-0400 SaO2% (BldA) [Mass fraction] 92 % Cece Santillan [facility]; [facility] Work Phone: Comment on above: Room air 06-14-2018 08:53-0400 Weight 69.97 kg Nikky Tabor [facility] Work Phone: 05-19-2018 09:12-0400 BMI (Body Mass Index) 27.28 kg/m2 Kathy Rivera RN [facility] Work Phone: 05-19-2018 09:12-0400 Body Temperature 95.7 [degF] Kathy Rivera RN [facility] Work Phone: Comment on above: Method: Temporal 05-19-2018 09:12-0400 Body weight 69.85 kg Kathy Rievra RN [facility] Work Phone: 05-19-2018 09:12-0400 BP Diastolic 82 mm[Hg] Kathy Rivera RN [facility] Work Phone: Comment on above: Patient Position: Sitting; Cuff Location : Left Arm; Cuff Size: Large 05-19-2018 09:12-0400 BP Systolic 120 mm[Hg] Kathy Rivera RN [facility] Work Phone: Comment on above: Patient Position: Sitting; Cuff Location : Left Arm; Cuff Size: Large 05-19-2018 09:12-0400 BSA (Body Surface Area) 1.73 m2 Kathy Rivera RN [facility] Work Phone: 05-19-2018 09:12-0400 Height 160.02 cm Kathy Rivera RN [facility] Work Phone: 05-19-2018 09:12-0400 Pulse (Heart Rate) 69 /min Kathy Rivera RN [facility] Work Phone: Comment on above: Pattern: Regular 05-19-2018 09:12-0400 Pulse Oximetry 97 % Nikky Tabor [facility] Work Phone: Comment on above: Room air 05-19-2018 09:12-0400 Respiratory Rate 16 /min Kathy Rivera RN [facility] Work Phone: Comment on above: Pattern: Unlabored 05-19-2018 09:12-0400 SaO2% (BldA) [Mass fraction] 97 % Kathy Rivera RN [facility]; [facility] Work Phone: Comment on above: Room air 05-19-2018 09:12-0400 Weight 69.85 kg Nikky Tabor [facility] Work Phone: 11-16-2017 11:24-0400 BMI (Body Mass Index) 26.99 kg/m2 Kathy Rivera RN [facility] Work Phone: 11-16-2017 11:24-0400 Body weight 69.12 kg Kathy Rivera RN [facility] Work Phone: 11-16-2017 11:24-0400 BP Diastolic 80 mm[Hg] Kathy Rivera RN [facility] Work Phone: Comment on above: Patient Position: Sitting; Cuff Location : Left Arm; Cuff Size: Large 11-16-2017 11:24-0400 BP Systolic 122 mm[Hg] Kathy Rivera RN [facility] Work Phone: Comment on above: Patient Position: Sitting; Cuff Location : Left Arm; Cuff Size: Large 11-16-2017 11:24-0400 BSA (Body Surface Area) 1.72 m2 Kathy Rivera RN [facility] Work Phone: 11-16-2017 11:24-0400 Height 160.02 cm Kathy Rivera RN [facility] Work Phone: 11-16-2017 11:24-0400 Pulse (Heart Rate) 70 /min Kathy Rivera RN [facility] Work Phone: Comment on above: Pattern: Regular 11-16-2017 11:24-0400 Pulse Oximetry 98 % Nikky Avendanoon [facility] Work Phone: Comment on above: Room air 11-16-2017 11:24-0400 Respiratory Rate 18 /min Kathy Rivera RN [facility] Work Phone: Comment on above: Pattern: Unlabored 11-16-2017 11:24-0400 SaO2% (BldA) [Mass fraction] 98 % Kathy Rivera RN [facility]; [facility] Work Phone: Comment on above: Room air 11-16-2017 11:24-0400 Weight 69.12 kg Nikky Avendanoon [facility] Work Phone: 11-10-2017 10:31-0500 BMI (Body Mass Index) 27.1 kg/m2 Kathy Rivera RN [facility] Work Phone: Comment on above: hearing wnlDr.Sai and had a glaucoma test [id number] 11-10-2017 10:31-0500 Body weight 69.4 kg Kathy Rivera RN [facility] Work Phone: Comment on above: hearing wnlDr.Sai and had a glaucoma test [id number] 11-10-2017 10:31-0500 BP Diastolic 88 mm[Hg] Kathy Rivera RN [facility] Work Phone: Comment on above: Patient Position: Sitting; Cuff Location : Left Arm; Cuff Size: Standard hearing wnlDr.Kenned y and had a glaucoma test [id number] 11-10-2017 10:31-0500 BP Systolic 142 mm[Hg] Kathy Rivera RN [facility] Work Phone: Comment on above: Patient Position: Sitting; Cuff Location : Left Arm; Cuff Size: Standard hearing wnlDr.Kenned y and had a glaucoma test [id number] 11-10-2017 10:31-0500 BSA (Body Surface Area) 1.73 m2 Kathy Rivera RN [facility] Work Phone: Comment on above: hearing wnlDr.Sai and had a glaucoma test [id number] 11-10-2017 10:31-0500 Height 160.02 cm Kathy Rivera RN [facility] Work Phone: Comment on above: hearing wnlDr.Sai and had a glaucoma test [id number] 11-10-2017 10:31-0500 Pulse (Heart Rate) 98 /min Kathy Rivera RN [facility] Work Phone: Comment on above: Pattern: Regular hearing wnlDr.Kenned y and had a glaucoma test [id number] 11-10-2017 10:31-0500 Pulse Oximetry 97 % Nikky Tabor [facility] Work Phone: Comment on above: Room air hearing wnlDr.Kenned y and had a glaucoma test [id number] 11-10-2017 10:31-0500 Respiratory Rate 18 /min Kathy Rivera RN [facility] Work Phone: Comment on above: Pattern: Unlabored hearing wnlDr.Kenned y and had a glaucoma test [id number] 11-10-2017 10:31-0500 SaO2% (BldA) [Mass fraction] 97 % Kathy Rivera RN [facility]; [facility] Work Phone: Comment on above: Room air hearing wnlDr.Samuel y and had a glaucoma test [id number] 11-10-2017 10:31-0500 Weight 69.4 kg Nikky Tabor [facility] Work Phone: 11-02-2016 09:07-0500 BMI (Body Mass Index) 28.17 kg/m2 Kathy Rivera RN [facility] Work Phone: Comment on above: hearing wnlDr. Sai and had a glaucom a test done 11-02-2016 09:07-0500 Body weight 72.12 kg Kathy Rivera RN [facility] Work Phone: Comment on above: hearing wnlDr. Sai and had a glaucom a test done 11-02-2016 09:07-0500 BP Diastolic 78 mm[Hg] Kathy Rivera RN [facility] Work Phone: Comment on above: Patient Position: Sitting; Cuff Location : Left Arm; Cuff Size: Standard hearing wnlDr. Shelton rodriguez and had a glaucoma test done 11-02-2016 09:07-0500 BP Systolic 120 mm[Hg] Kathy Rivera RN [facility] Work Phone: Comment on above: Patient Position: Sitting; Cuff Location : Left Arm; Cuff Size: Standard hearing wnlDr. Shelton dy and had a glaucoma test done 11-02-2016 09:07-0500 BSA (Body Surface Area) 1.75 m2 Kathy Rivera RN [facility] Work Phone: Comment on above: hearing wnlDr. Sai and had a glaucom a test done 11-02-2016 09:07-0500 Height 160.02 cm Kathy Rivera RN [facility] Work Phone: Comment on above: hearing wnlDr. Sai and had a glaucom a test done 11-02-2016 09:07-0500 Pulse (Heart Rate) 77 /min Kathy Rivera RN [facility] Work Phone: Comment on above: Pattern: Regular hearing wnlDr. Shelton rodriguez and had a glaucoma test done 11-02-2016 09:07-0500 Pulse Oximetry 94 % Nikky Tabor [facility] Work Phone: Comment on above: Room air hearing wnlDr. Shelton rodriguez and had a glaucoma test done 11-02-2016 09:07-0500 Respiratory Rate 18 /min Kathy Rivera RN [facility] Work Phone: Comment on above: Pattern: Unlabored hearing wnlDr. Shelton rodriguez and had a glaucoma test done 11-02-2016 09:07-0500 SaO2% (BldA) [Mass fraction] 94 % Kathy Rivera RN [facility]; [facility] Work Phone: Comment on above: Room air hearing wnlDr. Shelton rodriguez and had a glaucoma test done 11-02-2016 09:07-0500 Weight 72.12 kg Nikky Tabor [facility] Work Phone: 09-08-2016 13:59-0500 BMI (Body Mass Index) 28.17 kg/m2 [facility]: 09-08-2016 13:59-0500 Body Temperature 97.7 [degF] [facility] Work [facility]: Comment on above: Method: Tympanic 09-08-2016 13:59-0500 Body weight 72.12 kg [facility] Work Phone: 09-08-2016 13:59-0500 BP Diastolic 78 mm[Hg] Maria [facility] Work Phone: Comment on above: Patient Position: Sitting; Cuff Location : Left Arm; Cuff Size: Standard 09-08-2016 13:59-0500 BP Systolic 136 mm[Hg] [facility] Work Phone: Comment on above: Patient Position: Sitting; Cuff Location : Left Arm; Cuff Size: Standard 09-08-2016 13:59-0500 BSA (Body Surface Area) 1.75 m2 Maria [facility] Work Phone: 09-08-2016 13:59-0500 Height 160.02 cm Yana Augustin [facility] Work Phone: 09-08-2016 13:59-0500 Pulse (Heart Rate) 82 /min Yana Augustin [facility] Work Phone: Comment on above: Pattern: Regular 09-08-2016 13:59-0500 Pulse Oximetry 95 % Nikky Tabor [facility] Work Phone: Comment on above: Room air 09-08-2016 13:59-0500 Respiratory Rate 18 /min Yana Augustin [facility] Work Phone: Comment on above: Pattern: Unlabored 09-08-2016 13:59-0500 SaO2% (BldA) [Mass fraction] 95 % Yana Augustin [facility]; [facility] Work Phone: Comment on above: Room air 09-08-2016 13:59-0500 Weight 72.12 kg Nikky Tabor [facility] Work Phone: 05-19-2016 10:57-0400 BMI (Body Mass Index) 28.17 kg/m2 June Robertson RN [facility] Work Phone: 05-19-2016 10:57-0400 Body Temperature 97.8 [degF] June Robertson RN [facility] Work Phone: Comment on above: Method: Temporal 05-19-2016 10:57-0400 Body weight 72.12 kg June Robertson RN [facility] Work Phone: 05-19-2016 10:57-0400 BP Diastolic 84 mm[Hg] June Robertson RN [facility] Work Phone: Comment on above: Patient Position: Sitting; Cuff Location : Left Arm; Cuff Size: Standard 05-19-2016 10:57-0400 BP Systolic 120 mm[Hg] June Robertson RN [facility] Work Phone: Comment on above: Patient Position: Sitting; Cuff Location : Left Arm; Cuff Size: Standard 05-19-2016 10:57-0400 BSA (Body Surface Area) 1.75 m2 June Robertson RN [facility] Work Phone: 05-19-2016 10:57-0400 Height 160.02 cm June Robertson RN [facility] Work Phone: 05-19-2016 10:57-0400 Pulse (Heart Rate) 88 /min June Robertson RN [facility] Work Phone: Comment on above: Pattern: Regular 05-19-2016 10:57-0400 Pulse Oximetry 98 % Nikky Sharona [facility] Work Phone: Comment on above: Room air 05-19-2016 10:57-0400 Respiratory Rate 16 /min June Robertson RN [facility] Work Phone: Comment on above: Pattern: Unlabored 05-19-2016 10:57-0400 SaO2% (BldA) [Mass fraction] 98 % June Robertson RN [facility]; [facility] Work Phone: Comment on above: Room air 05-19-2016 10:57-0400 Weight 72.12 kg Nikky Shraona [facility] Work Phone: 05-07-2016 11:30-0400 BMI (Body Mass Index) 27.81 kg/m2 Kathy Rivera RN [facility] Work Phone: 05-07-2016 11:30-0400 Body Temperature 97.1 [degF] Kathy Rivera RN [facility] Work Phone: Comment on above: Method: Temporal 05-07-2016 11:30-0400 Body weight 71.22 kg Kathy Rivera RN [facility] Work Phone: 05-07-2016 11:30-0400 BP Diastolic 84 mm[Hg] Kathy Rivera RN [facility] Work Phone: Comment on above: Patient Position: Sitting; Cuff Location : Left Arm; Cuff Size: Large 05-07-2016 11:30-0400 BP Systolic 138 mm[Hg] Kathy Rivera RN [facility] Work Phone: Comment on above: Patient Position: Sitting; Cuff Location : Left Arm; Cuff Size: Large 05-07-2016 11:30-0400 BSA (Body Surface Area) 1.74 m2 Kathy Rivera RN [facility] Work Phone: 05-07-2016 11:30-0400 Height 160.02 cm Kathy Rivera RN [facility] Work Phone: 05-07-2016 11:30-0400 Pulse (Heart Rate) 82 /min Kathy Rivera RN [facility] Work Phone: Comment on above: Pattern: Regular 05-07-2016 11:30-0400 Pulse Oximetry 97 % Nikky Tabor [facility] Work Phone: Comment on above: Room air 05-07-2016 11:30-0400 Respiratory Rate 18 /min Kathy Rivera RN [facility] Work Phone: Comment on above: Pattern: Unlabored 05-07-2016 11:30-0400 SaO2% (BldA) [Mass fraction] 97 % Kathy Rivera RN [facility]; [facility] Work Phone: Comment on above: Room air 05-07-2016 11:30-0400 Weight 71.22 kg Nikky Sharona [facility] Work Phone: 04-08-2016 11:58-0400 BMI (Body Mass Index) 27.81 kg/m2 June Robertson RN [facility] Work Phone: 04-08-2016 11:58-0400 Body Temperature 98.1 [degF] June Robertson RN [facility] Work Phone: 04-08-2016 11:58-0400 Body weight 71.22 kg June Robertson RN [facility] Work Phone: 04-08-2016 11:58-0400 BP Diastolic 74 mm[Hg] June Robertson RN [facility] Work Phone: Comment on above: Patient Position: Sitting; Cuff Location : Left Arm; Cuff Size: Standard 04-08-2016 11:58-0400 BP Systolic 122 mm[Hg] June Robertson RN [facility] Work Phone: Comment on above: Patient Position: Sitting; Cuff Location : Left Arm; Cuff Size: Standard 04-08-2016 11:58-0400 BSA (Body Surface Area) 1.74 m2 June Robertson RN [facility] Work Phone: 04-08-2016 11:58-0400 Height 160.02 cm June Robertson RN [facility] Work Phone: 04-08-2016 11:58-0400 Pulse (Heart Rate) 16 /min June Robertson RN [facility] Work Phone: Comment on above: Pattern: Regular 04-08-2016 11:58-0400 Pulse Oximetry 95 % Nikky Sharona [facility] Work Phone: Comment on above: Room air 04-08-2016 11:58-0400 Respiratory Rate 16 /min June Robertson RN [facility] Work Phone: Comment on above: Pattern: Unlabored 04-08-2016 11:58-0400 SaO2% (BldA) [Mass fraction] 95 % June Robertson RN [facility]; [facility] Work Phone: Comment on above: Room air 04-08-2016 11:58-0400 Weight 71.22 kg Nikky Sharona [facility] Work Phone: 03-31-2016 08:23-0400 BMI (Body Mass Index) 27.63 kg/m2 June Robertson RN [facility] Work Phone: 03-31-2016 08:23-0400 Body Temperature 97.2 [degF] June Robertson RN [facility] Work Phone: Comment on above: Method: Temporal 03-31-2016 08:23-0400 Body weight 70.76 kg June Robertson RN [facility] Work Phone: 03-31-2016 08:23-0400 BP Diastolic 80 mm[Hg] June Robertson RN [facility] Work Phone: Comment on above: Patient Position: Sitting; Cuff Location : Left Arm; Cuff Size: Standard 03-31-2016 08:23-0400 BP Systolic 134 mm[Hg] June Robertson RN [facility] Work Phone: Comment on above: Patient Position: Sitting; Cuff Location : Left Arm; Cuff Size: Standard 03-31-2016 08:23-0400 BSA (Body Surface Area) 1.74 m2 June Robertson RN [facility] Work Phone: 03-31-2016 08:23-0400 Height 160.02 cm June Robertson RN [facility] Work Phone: 03-31-2016 08:23-0400 Pulse (Heart Rate) 75 /min June Robertson RN [facility] Work Phone: Comment on above: Pattern: Regular 03-31-2016 08:23-0400 Pulse Oximetry 97 % Nikky Tabor [facility] Work Phone: Comment on above: Room air 03-31-2016 08:23-0400 Respiratory Rate 16 /min June Robertson RN [facility] Work Phone: Comment on above: Pattern: Unlabored 03-31-2016 08:23-0400 SaO2% (BldA) [Mass fraction] 97 % June Robertson RN [facility]; [facility] Work Phone: Comment on above: Room air 03-31-2016 08:23-0400 Weight 70.76 kg Nikky Tabor [facility] Work Phone: 12-09-2015 13:51-0400 BMI (Body Mass Index) 27.63 kg/m2 Yana Charli Charley [facility] Work Phone: 12-09-2015 13:51-0400 Body Temperature 97.2 [degF] Yana Augustin [facility] Work Phone: Comment on above: Method: Tympanic 12-09-2015 13:51-0400 Body weight 70.76 kg Yana Augustin [facility] Work Phone: 12-09-2015 13:51-0400 BP Diastolic 86 mm[Hg] Yana Augustin [facility] Work Phone: Comment on above: Patient Position: Sitting; Cuff Location : Left Arm; Cuff Size: Standard 12-09-2015 13:51-0400 BP Systolic 150 mm[Hg] Yana Augustin [facility] Work Phone: Comment on above: Patient Position: Sitting; Cuff Location : Left Arm; Cuff Size: Standard 12-09-2015 13:51-0400 BSA (Body Surface Area) 1.74 m2 Yana Augustin [facility] Work Phone: 12-09-2015 13:51-0400 Height 160.02 cm Yana Augustin [facility] Work Phone: 12-09-2015 13:51-0400 Pulse (Heart Rate) 89 /min Yana Augustin [facility] Work Phone: Comment on above: Pattern: Regular 12-09-2015 13:51-0400 Pulse Oximetry 97 % Nikky Tabor [facility] Work Phone: Comment on above: Room air 12-09-2015 13:51-0400 Respiratory Rate 18 /min Yana Augustin [facility] Work Phone: Comment on above: Pattern: Unlabored 12-09-2015 13:51-0400 SaO2% (BldA) [Mass fraction] 97 % Yana Augustin [facility]; [facility] Work Phone: Comment on above: Room air 12-09-2015 13:51-0400 Weight 70.76 kg Nikky Tabor [facility] Work Phone: 10-31-2015 08:55-0500 BMI (Body Mass Index) 27.81 kg/m2 ZEINAB Camacho LPN [facility] Work Phone: 10-31-2015 08:55-0500 Body Temperature 97.9 [degF] ZEINAB Camacho LPN [facility] Work Phone: Comment on above: Method: Temporal 10-31-2015 08:55-0500 Body weight 71.22 kg ZEINAB Camacho LPN [facility] Work Phone: 10-31-2015 08:55-0500 BP Diastolic 80 mm[Hg] ZEINAB Camacho LPN [facility] Work Phone: Comment on above: Patient Position: Sitting; Cuff Location : Left Arm; Cuff Size: Standard 10-31-2015 08:55-0500 BP Systolic 130 mm[Hg] ZEINAB Camacho LPN [facility] Work Phone: Comment on above: Patient Position: Sitting; Cuff Location : Left Arm; Cuff Size: Standard 10-31-2015 08:55-0500 BSA (Body Surface Area) 1.74 m2 ZEINAB Camacho LPN [facility] Work Phone: 10-31-2015 08:55-0500 Height 160.02 cm ZEINAB Camacho LPN [facility] Work Phone: 10-31-2015 08:55-0500 Pulse (Heart Rate) 68 /min ZEINAB Camacho LPN [facility] Work Phone: Comment on above: Pattern: Regular 10-31-2015 08:55-0500 Pulse Oximetry 95 % Nikky Tabor [facility] Work Phone: Comment on above: Room air 10-31-2015 08:55-0500 Respiratory Rate 18 /min ZEINAB Camacho LPN [facility] Work Phone: Comment on above: Pattern: Unlabored 10-31-2015 08:55-0500 SaO2% (BldA) [Mass fraction] 95 % ZEINAB Camacho LPN [facility]; [facility] Work Phone: Comment on above: Room air 10-31-2015 08:55-0500 Weight 71.22 kg Nikky Tabor [facility] Work Phone: 04-23-2015 11:23-0400 BMI (Body Mass Index) 26.75 kg/m2 Livier Kingston [facility] Work Phone: 04-23-2015 11:23-0400 Body weight 68.[address] [facility] Work Phone: 04-23-2015 11:23-0400 BP Diastolic 70 mm[Hg] Livier Kingston [facility] Work Phone: Comment on above: Patient Position: Sitting; Cuff Location : Left Arm; Cuff Size: Standard 04-23-2015 11:23-0400 BP Systolic 122 mm[Hg] Livier Kingston [facility] Work Phone: Comment on above: Patient Position: Sitting; Cuff Location : Left Arm; Cuff Size: Standard 04-23-2015 11:23-0400 BSA (Body Surface Area) 1.72 m2 Livier Kingston [facility] Work Phone: 04-23-2015 11:23-0400 Height 160.02 cm Livier Kingston [facility] Work Phone: 04-23-2015 11:23-0400 Pulse (Heart Rate) 69 /min Livier Kingston [facility] Work Phone: Comment on above: Pattern: Regular 04-23-2015 11:23-0400 Pulse Oximetry 97 % Nikky Tabor [facility] Work Phone: Comment on above: Room air 04-23-2015 11:23-0400 Respiratory Rate 16 /min Livier Kingston [facility] Work Phone: Comment on above: Pattern: Unlabored 04-23-2015 11:23-0400 SaO2% (BldA) [Mass fraction] 97 % Livier Kingston [facility]; [facility] Work Phone: Comment on above: Room air 04-23-2015 11:23-0400 Weight 68.49 kg Nikky Tabor [facility] Work Phone: 03-18-2015 12:00-0400 BMI (Body Mass Index) 26.75 kg/m2 Kathya Deras [facility] Work Phone: 03-18-2015 12:00-0400 Body Temperature 97.5 [degF] Kathya Deras [facility] Work Phone: Comment on above: Method: Temporal 03-18-2015 12:00-0400 Body weight 68.49 kg Kathya Deras [facility] Work Phone: 03-18-2015 12:00-0400 BP Diastolic 82 mm[Hg] Kathya Deras [facility] Work Phone: Comment on above: Patient Position: Sitting; Cuff Location : Left Arm; Cuff Size: Standard 03-18-2015 12:00-0400 BP Systolic 118 mm[Hg] Kathya Deras [facility] Work Phone: Comment on above: Patient Position: Sitting; Cuff Location : Left Arm; Cuff Size: Standard 03-18-2015 12:00-0400 BSA (Body Surface Area) 1.72 m2 Kathya Deras [facility] Work Phone: 03-18-2015 12:00-0400 Height 160.02 cm Kathya Raishazia [facility] Work Phone: 03-18-2015 12:00-0400 Pulse (Heart Rate) 68 /min Kathya Deras [facility] Work Phone: Comment on above: Pattern: Regular 03-18-2015 12:00-0400 Respiratory Rate 16 /min Kathya Deras [facility] Work Phone: Comment on above: Pattern: Unlabored 03-18-2015 12:00-0400 Weight 68.49 kg Nikky Tabor [facility] Work Phone: 02-07-2015 11:36-0400 BMI (Body Mass Index) 27.28 kg/m2 ZEINAB Camacho LPN [facility] Work Phone: 02-07-2015 11:36-0400 Body Temperature 97.6 [degF] ZEINAB Camacho LPN [facility] Work Phone: Comment on above: Method: Temporal 02-07-2015 11:36-0400 Body weight 69.85 kg ZEINAB Camacho LPN [facility] Work Phone: 02-07-2015 11:36-0400 BP Diastolic 80 mm[Hg] ZEINAB Camacho LPN [facility] Work Phone: Comment on above: Patient Position: Sitting; Cuff Location : Left Arm; Cuff Size: Standard 02-07-2015 11:36-0400 BP Systolic 140 mm[Hg] ZEINAB Camacho LPN [facility] Work Phone: Comment on above: Patient Position: Sitting; Cuff Location : Left Arm; Cuff Size: Standard 02-07-2015 11:36-0400 BSA (Body Surface Area) 1.73 m2 ZEINAB Camacho RAFAT [facility] Work Phone: 02-07-2015 11:36-0400 Height 160.02 cm ZEINAB Camacho [employer] [facility] Work Phone: 02-07-2015 11:36-0400 Pulse (Heart Rate) 84 /min ZEINAB Camacho [employer] [facility] Work Phone: Comment on above: Pattern: Regular 02-07-2015 11:36-0400 Pulse Oximetry 97 % Nikky Tabor [facility] Work Phone: Comment on above: Room air 02-07-2015 11:36-0400 Respiratory Rate 18 /min ZEINAB Camacho [employer] [facility] Work Phone: Comment on above: Pattern: Unlabored 02-07-2015 11:36-0400 SaO2% (BldA) [Mass fraction] 97 % ZEINAB Camacho [employer] [facility]; [facility] Work Phone: Comment on above: Room air 02-07-2015 11:36-0400 Weight 69.85 kg Nikky Tabor [facility] Work Phone: 02-01-2015 07:25-0400 BMI (Body Mass Index) 28.17 kg/m2 Ashley More [facility] Work Phone: 02-01-2015 07:25-0400 Body Temperature 97.8 [degF] Ashley More LPN [facility] Work Phone: 02-01-2015 07:25-0400 Body weight 72.12 kg Ashley Slarb [employer] [facility] Work Phone: 02-01-2015 07:25-0400 BP Diastolic 88 mm[Hg] Ashley Slarb [employer] [facility] Work Phone: Comment on above: Patient Position: Sitting; Cuff Location : Left Arm; Cuff Size: Standard 02-01-2015 07:25-0400 BP Systolic 142 mm[Hg] Ashley Slarb [employer] [facility] Work Phone: Comment on above: Patient Position: Sitting; Cuff Location : Left Arm; Cuff Size: Standard 02-01-2015 07:25-0400 BSA (Body Surface Area) 1.75 m2 Ashley Slarb [employer] [facility] Work Phone: 02-01-2015 07:25-0400 Height 160.02 cm Ashley Slarb [employer] [facility] Work Phone: 02-01-2015 07:25-0400 Pulse (Heart Rate) 78 /min Ashley Randallrb [employer] [facility] Work Phone: Comment on above: Pattern: Regular 02-01-2015 07:25-0400 Pulse Oximetry 94 % Nikky Tabor [facility] Work Phone: Comment on above: Room air 02-01-2015 07:25-0400 Respiratory Rate 18 /min Ashley Randallrb [employer] [facility] Work Phone: Comment on above: Pattern: Unlabored 02-01-2015 07:25-0400 SaO2% (BldA) [Mass fraction] 94 % Ashley Slarb [employer] [facility]; [facility] Work Phone: Comment on above: Room air 02-01-2015 07:25-0400 Weight 72.12 kg Nikky Tabor [facility] Work Phone: 10-29-2014 11:01-0500 BMI (Body Mass Index) 28.17 kg/m2 Kathya Deras [facility] Work Phone: 10-29-2014 11:01-0500 Body Temperature 98.4 [degF] Kathya Deras [facility] Work Phone: 10-29-2014 11:01-0500 Body weight 72.12 kg Kathya Deras [facility] Work Phone: 10-29-2014 11:01-0500 BP Diastolic 82 mm[Hg] Kathya Deras [facility] Work Phone: Comment on above: Patient Position: Sitting; Cuff Location : Left Arm; Cuff Size: Large 10-29-2014 11:01-0500 BP Systolic 138 mm[Hg] Kathya Deras [facility] Work Phone: Comment on above: Patient Position: Sitting; Cuff Location : Left Arm; Cuff Size: Large 10-29-2014 11:01-0500 BSA (Body Surface Area) 1.75 m2 Kathya Deras [facility] Work Phone: 10-29-2014 11:01-0500 Height 160.02 cm Kathya Deras [facility] Work Phone: 10-29-2014 11:01-0500 Pulse (Heart Rate) 76 /min [facility] Work Phone: Comment on above: Pattern: Regular 10-29-2014 11:01-0500 Respiratory Rate 16 /min Kathya Deras [facility] Work Phone: Comment on above: Pattern: Unlabored 10-29-2014 11:01-0500 Weight 72.12 kg Nikky Tabor [facility] Work Phone: 07-10-2014 09:27-0500 BMI (Body Mass Index) 28.17 kg/m2 June Robertson RN [facility] Work Phone: 07-10-2014 09:27-0500 Body Temperature 97.8 [degF] June Robertson RN [facility] Work Phone: Comment on above: Method: Temporal 07-10-2014 09:27-0500 Body weight 72.12 kg June Robertson RN [facility] Work Phone: 07-10-2014 09:27-0500 BP Diastolic 74 mm[Hg] June Robertson RN [facility] Work Phone: Comment on above: Patient Position: Sitting; Cuff Location : Left Arm; Cuff Size: Standard 07-10-2014 09:27-0500 BP Systolic 130 mm[Hg] June Robertson RN [facility] Work Phone: Comment on above: Patient Position: Sitting; Cuff Location : Left Arm; Cuff Size: Standard 07-10-2014 09:27-0500 BSA (Body Surface Area) 1.75 m2 June Robertson RN [facility] Work Phone: 07-10-2014 09:27-0500 Height 160.02 cm June Robertson RN [facility] Work Phone: 07-10-2014 09:27-0500 Pulse (Heart Rate) 65 /min June Robertson RN [facility] Work Phone: Comment on above: Pattern: Regular 07-10-2014 09:27-0500 Pulse Oximetry 97 % Nikky Tabor [facility] Work Phone: Comment on above: Room air 07-10-2014 09:27-0500 Respiratory Rate 15 /min June Robertson RN [facility] Work Phone: Comment on above: Pattern: Unlabored 07-10-2014 09:27-0500 SaO2% (BldA) [Mass fraction] 97 % June Robertson RN [facility]; [facility] Work Phone: Comment on above: Room air 07-10-2014 09:27-0500 Weight 72.12 kg Nikky Sharona [facility] Work Phone: 05-12-2013 08:35-0400 BMI (Body Mass Index) 28.17 kg/m2 ZEINAB Camacho LPN [facility] Work Phone: 05-12-2013 08:35-0400 Body Temperature 97.8 [degF] ZEINAB Camacho LPN [facility] Work Phone: Comment on above: Method: Oral 05-12-2013 08:35-0400 Body weight 72.12 kg ZEINAB Camacho LPN [facility] Work Phone: 05-12-2013 08:35-0400 BP Diastolic 74 mm[Hg] ZEINBA Camacho LPN [facility] Work Phone: Comment on above: Patient Position: Sitting; Cuff Location : Left Arm; Cuff Size: Standard 05-12-2013 08:35-0400 BP Systolic 124 mm[Hg] ZEINAB Camacho LPN [facility] Work Phone: Comment on above: Patient Position: Sitting; Cuff Location : Left Arm; Cuff Size: Standard 05-12-2013 08:35-0400 BSA (Body Surface Area) 1.75 m2 ZEINAB Camacho LPN [facility] Work Phone: 05-12-2013 08:35-0400 Height 160.02 cm ZEINAB Camacho LPN [facility] Work Phone: 05-12-2013 08:35-0400 Pulse (Heart Rate) 68 /min ZEINAB Camacho LPN [facility] Work Phone: Comment on above: Pattern: Regular 05-12-2013 08:35-0400 Respiratory Rate 18 /min ZEINAB Camacho LPN [facility] Work Phone: Comment on above: Pattern: Unlabored 05-12-2013 08:35-0400 Weight 72.12 kg Nikky Tabor [facility] Work Phone: 11-07-2012 14:11-0500 BMI (Body Mass Index) 28.52 kg/m2 Nikky Tabor [facility] Work Phone: 11-07-2012 14:11-0500 Body Temperature 98 [degF] Nikky Tabor [facility] Work Phone: Comment on above: Method: Oral 11-07-2012 14:11-0500 Body weight 73.03 kg Nikky Tabor [facility] Work Phone: 11-07-2012 14:11-0500 BP Diastolic 78 mm[Hg] Nikky Tabor [facility] Work Phone: Comment on above: Patient Position: Sitting; Cuff Location : Left Arm; Cuff Size: Standard 11-07-2012 14:110500 BP Systolic 124 mm[Hg] Nikky Tabor [facility] Work Phone: Comment on above: Patient Position: Sitting; Cuff Location : Left Arm; Cuff Size: Standard 11-07-2012 14:11-0500 BSA (Body Surface Area) 1.76 m2 Nikky Tabor [facility] Work Phone: 11-07-2012 14:11-0500 Height 160.02 cm Nikky Tabor [facility] Work Phone: 11-07-2012 14:11-0500 Pulse (Heart Rate) 66 /min Nikky Tabor [facility] Work Phone: Comment on above: Pattern: Regular 11-07-2012 14:11-0500 Respiratory Rate 16 /min Nikky Tabor [facility] Work Phone: 11-07-2012 14:11-0500 Weight 73.03 kg Nikky Tabro [facility] Work Phone: 06-21-2012 11:35-0400 BMI (Body Mass Index) 28.52 kg/m2 Felisha Solorzano MD Work Phone: [facility] Work Phone: 06-21-2012 11:35-0400 Body Temperature 96.7 [degF] Felisha Solorzano MD Work Phone: [facility] Work Phone: Comment on above: Method: Oral 06-21-2012 11:35-0400 Body weight 73.03 kg Felisha Solorzano MD Work Phone: [facility] Work Phone: 06-21-2012 11:35-0400 BP Diastolic 72 mm[Hg] Felisha Solorzano MD Work Phone: [facility] Work Phone: Comment on above: Patient Position: Sitting; Cuff Location : Left Arm; Cuff Size: Standard 06-21-2012 11:35-0400 BP Systolic 122 mm[Hg] Felisha Solorzano MD Work Phone: [facility] Work Phone: Comment on above: Patient Position: Sitting; Cuff Location : Left Arm; Cuff Size: Standard 06-21-2012 11:35-0400 BSA (Body Surface Area) 1.76 m2 Felisha Solorzano MD Work Phone: [facility] Work Phone: 06-21-2012 11:35-0400 Height 160.02 cm Felisha Solorzano MD Work Phone: [facility] Work Phone: 06-21-2012 11:35-0400 Pulse (Heart Rate) 72 /min Felisha Solorzano MD Work Phone: [facility] Work Phone: Comment on above: Pattern: Regular 06-21-2012 11:35-0400 Respiratory Rate 16 /min Felisha Solorzano MD Work Phone: [facility] Work Phone: Comment on above: Pattern: Unlabored 06-21-2012 11:35-0400 Weight 73.03 kg Nikky Tabor [facility] Work Phone: 06-16-2011 08:28-0400 BMI (Body Mass Index) 25.33 kg/m2 June Robertson RN [facility] Work Phone: 06-16-2011 08:28-0400 Body Temperature 98.1 [degF] June Robertson RN [facility] Work Phone: Comment on above: Method: Oral 06-16-2011 08:28-0400 Body weight 64.86 kg June Robertson RN [facility] Work Phone: 06-16-2011 08:28-0400 BP Diastolic 80 mm[Hg] June Robertson RN [facility] Work Phone: Comment on above: Patient Position: Sitting; Cuff Location : Left Arm; Cuff Size: Standard 06-16-2011 08:28-0400 BP Systolic 126 mm[Hg] June Robertson RN [facility] Work Phone: Comment on above: Patient Position: Sitting; Cuff Location : Left Arm; Cuff Size: Standard 06-16-2011 08:28-0400 BSA (Body Surface Area) 1.68 m2 June Robertson RN [facility] Work Phone: 06-16-2011 08:28-0400 Height 160.02 cm June Robertson RN [facility] Work Phone: 06-16-2011 08:28-0400 Pulse (Heart Rate) 66 /min June Robertson RN [facility] Work Phone: Comment on above: Pattern: Regular 06-16-2011 08:28-0400 Respiratory Rate 16 /min June Robertson RN [facility] Work Phone: Comment on above: Pattern: Unlabored 06-16-2011 08:28-0400 Weight 64.86 kg Nikky Tabor [facility] Work Phone: 06-20-2010 09:14-0400 Body Temperature 97.6 [degF] ZEINAB Camacho LPN [facility] Work Phone: Comment on above: Method: Oral 06-20-2010 09:14-0400 Body weight 64.86 kg ZEINAB Camacho RAFAT [facility] Work Phone: 06-20-2010 09:14-0400 BP Diastolic 78 mm[Hg] ZEINAB Camacho LPN [facility] Work Phone: Comment on above: Patient Position: Sitting; Cuff Location : Left Arm; Cuff Size: Standard 06-20-2010 09:14-0400 BP Systolic 120 mm[Hg] ZEINAB Camacho LPN [facility] Work Phone: Comment on above: Patient Position: Sitting; Cuff Location : Left Arm; Cuff Size: Standard 06-20-2010 09:14-0400 Pulse (Heart Rate) 70 /min ZEINAB Camacho LPN [facility] Work Phone: Comment on above: Pattern: Regular 06-20-2010 09:14-0400 Respiratory Rate 18 /min ZEINAB Camacho [facility] Work Phone: Comment on above: Pattern: Unlabored 06-20-2010 09:14-0400 Weight 64.86 kg Nikky Tabor [facility] Work Phone: 05-02-2010 14:16-0400 Body Temperature 98.2 [degF] ZEINAB Camacho [facility] Work Phone: Comment on above: Method: Oral 05-02-2010 14:16-0400 BP Diastolic 76 mm[Hg] ZEINAB Camacho [facility] Work Phone: Comment on above: Patient Position: Sitting; Cuff Location : Left Arm; Cuff Size: Standard 05-02-2010 14:16-0400 BP Systolic 116 mm[Hg] ZEINAB Camacho [facility] Work Phone: Comment on above: Patient Position: Sitting; Cuff Location : Left Arm; Cuff Size: Standard 05-02-2010 14:16-0400 Pulse (Heart Rate) 74 /min ZEINAB Camacho [facility] Work Phone: Comment on above: Pattern: Regular 05-02-2010 14:16-0400 Respiratory Rate 18 /min ZEINAB Camacho [facility] Work Phone: Comment on above: Pattern: Unlabored 01-27-2010 08:15-0400 Body Temperature 97.8 [degF] ZEINAB Camacho [facility] Work Phone: Comment on above: Method: Oral 01-27-2010 08:15-0400 BP Diastolic 78 mm[Hg] ZEINAB Camacho [facility] Work Phone: Comment on above: Patient Position: Sitting; Cuff Location : Left Arm; Cuff Size: Standard 01-27-2010 08:15-0400 BP Systolic 122 mm[Hg] ZEINAB Camacho [facility] Work Phone: Comment on above: Patient Position: Sitting; Cuff Location : Left Arm; Cuff Size: Standard 01-27-2010 08:15-0400 Pulse (Heart Rate) 74 /min ZEINAB Camacho [facility] Work Phone: Comment on above: Pattern: Regular 01-27-2010 08:15-0400 Respiratory Rate 18 /min ZEINAB Camacho LPN [facility] Work Phone: Comment on above: Pattern: Unlabored 09-20-2009 11:28-0500 Body weight 71.22 kg ZEINAB Camacho LPN [facility] Work Phone: 09-20-2009 11:28-0500 BP Diastolic 78 mm[Hg] ZEINAB Camacho LPN [facility] Work Phone: Comment on above: Patient Position: Sitting; Cuff Location : Left Arm; Cuff Size: Standard 09-20-2009 11:28-0500 BP Systolic 118 mm[Hg] ZEINAB Camacho LPN [facility] Work Phone: Comment on above: Patient Position: Sitting; Cuff Location : Left Arm; Cuff Size: Standard 09-20-2009 11:28-0500 Pulse (Heart Rate) 68 /min ZEINAB Camacho LPN [facility] Work Phone: Comment on above: Pattern: Regular 09-20-2009 11:28-0500 Respiratory Rate 16 /min ZEINAB Camacho [employer] [facility] Work Phone: Comment on above: Pattern: Unlabored 09-20-2009 11:28-0500 Weight 71.22 kg Nikky Tabor [facility] Work Phone: 07-19-2008 12:37-0500 Body Temperature 98.6 [degF] ZEINAB Camacho [employer] [facility] Work Phone: Comment on above: Method: Oral 07-19-2008 12:37-0500 Body weight 71.22 kg ZEINAB Camacho [employer] [facility] Work Phone: 07-19-2008 12:37-0500 BP Diastolic 80 mm[Hg] ZEINAB Camacho LPN [facility] Work Phone: Comment on above: Patient Position: Sitting; Cuff Location : Left Arm; Cuff Size: Standard 07-19-2008 12:37-0500 BP Systolic 120 mm[Hg] ZEINAB Camacho LPN [facility] Work Phone: Comment on above: Patient Position: Sitting; Cuff Location : Left Arm; Cuff Size: Standard 07-19-2008 12:37-0500 Head Circumference 0 cm Nikky Tabor [facility] Work Phone: 07-19-2008 12:37-0500 Head Occipital-frontal circumference 0 cm ZEINAB Camacho LPN [facility]; [facility] Work Phone: 07-19-2008 12:37-0500 Height 0 cm ZEINAB Camacho LPN [facility] Work Phone: 07-19-2008 12:37-0500 Pulse (Heart Rate) 70 /min ZEINAB Camacho LPN [facility] Work Phone: Comment on above: Pattern: Regular 07-19-2008 12:37-0500 Respiratory Rate 16 /min ZEINAB Camacho LPN [facility] Work Phone: Comment on above: Pattern: Unlabored 07-19-2008 12:37-0500 Weight 71.22 kg Nikky Tabor [facility] Work Phone: 07-04-2007 11:12-0400 Body Temperature 98.7 [degF] ZEINAB Camacho [employer] [facility] Work Phone: Comment on above: Method: Oral 07-04-2007 11:12-0400 Body weight 66.23 kg ZEINAB Camacho LPN [facility] Work Phone: 07-04-2007 11:12-0400 BP Diastolic 78 mm[Hg] ZEINAB Camacho [facility] Work Phone: Comment on above: Patient Position: Sitting; Cuff Location : Left Arm; Cuff Size: Standard 07-04-2007 11:12-0400 BP Systolic 122 mm[Hg] ZEINAB Camacho LPN [facility] Work Phone: Comment on above: Patient Position: Sitting; Cuff Location : Left Arm; Cuff Size: Standard 07-04-2007 11:12-0400 Head Circumference 0 cm Nikky Tabor [facility] Work Phone: 07-04-2007 11:12-0400 Head Occipital-frontal circumference 0 cm ZEINAB Camacho LPN [facility]; [facility] Work Phone: 07-04-2007 11:120400 Height 0 cm ZEINAB Camacho LPN [facility] Work Phone: 07-04-2007 11:12-0400 Pulse (Heart Rate) 64 /min ZEINAB Camacho LPN [facility] Work Phone: Comment on above: Pattern: Regular 07-04-2007 11:12-0400 Respiratory Rate 18 /min ZEINAB Camacho LPN [facility] Work Phone: Comment on above: Pattern: Unlabored 07-04-2007 11:12-0400 Weight 66.23 kg Nikky Tabor [facility] Work Phone: 12-31-2006 09:17-0400 BMI (Body Mass Index) 27.72 kg/m2 Nikky Tabor [facility] Work Phone: 12-31-2006 09:17-0400 Body Temperature 98.5 [degF] Nikky Tabor [facility] Work Phone: Comment on above: Method: Oral 12-31-2006 09:17-0400 Body weight 69.85 kg Nikky Tabor [facility] Work Phone: 12-31-2006 09:17-0400 BP Diastolic 86 mm[Hg] Nikky Tabor [facility] Work Phone: Comment on above: Patient Position: Sitting; Cuff Location : Right Arm; Cuff Size: Standard 12-31-2006 09:17-0400 BP Systolic 132 mm[Hg] Nikky Tabor [facility] Work Phone: Comment on above: Patient Position: Sitting; Cuff Location : Right Arm; Cuff Size: Standard 12-31-2006 09:17-0400 BSA (Body Surface Area) 1.72 m2 Nikky Tabor [facility] Work Phone: 12-31-2006 09:17-0400 Head Circumference 0 cm Nikky Tabor [facility] Work Phone: 12-31-2006 09:17-0400 Head Occipital-frontal circumference 0 cm Nikky Tabor DO Work Phone: [facility]; [facility] Work Phone: 12-31-2006 09:170400 Height 158.75 cm Nikkydontae Tabor [facility] Work Phone: 12-31-2006 09:17-0400 Pulse (Heart Rate) 64 /min Nikky Tabor [facility] Work Phone: Comment on above: Pattern: Regular 12-31-2006 09:17-0400 Respiratory Rate 16 /min Nikky Tabor [facility] Work Phone: Comment on above: Pattern: Unlabored 12-31-2006 09:170400 Weight 69.85 kg Nikky Tabor [facility] Work Phone: Encounters Encounter Date Encounter Type Care Provider Facility Start: 07-16-2025 End: 07-16-2025 ambulatory Nikky Tabor Facility:[facility] Start: 04-03-2025 End: 04-03-[address] Nikky Tabor DO Work Phone: -Outpatient Bone Densitometry Start: 04-03-2025 End: 04-03-[address] Nikky Tabor DO -Outpatient [facility]ometry Work Phone: Start: 04-03-2025 End: 04-03-2025 ambulatory Nikky Tabor Facility:[facility] Start: 03-06-2025 Non-patient / Non-visit Dr. Lesley wise MD -[facility] Work Phone: Start: 01-02-2025 End: 01-02-2025 Patient encounter procedure Anna Cho NP-C -Outpatient Breast Imaging Work Phone: Start: 01-02-2025 End: 01-02-2025 ambulatory Nikky Tabor Facility:[facility] Start: 10-16-2024 End: 10-16-2024 ambulatory Anna Cho [place] [place] Start: 10-05-2024 End: 10-05-2024 ambulatory Nikky Tabor Facility:[facility] Start: 12-31-2023 End: 12-31-[address] Nikky Tabor Work Phone: [facility] Work Phone: Start: 12-31-2023 End: 12-31-[address] Nikky Tabor Work Phone: [facility]-Outpatient Breast Imaging Work Phone: Start: 12-13-2023 End: 12-13-[address] Nikky Tabor Work Phone: [facility] Work Phone: Start: 10-15-2023 End: 10-15-[address] Nikky Tabor Work Phone: [facility] Work Phone: Start: 10-12-2023 End: 10-12-[address] Nikky Tabor Work Phone: [facility] Work Phone: Start: 09-15-2023 End: 09-15-[address] Nikky Tabor Work Phone: [facility] Work Phone: Start: 09-15-2023 End: 09-15-[address] Nikky Tabor Work Phone: [facility]-Laboratory Work Phone: Start: 08-18-2023 End: 08-18-[address] [facility] Work Phone: Start: 07-06-2023 End: 07-06-[address] [facility] Work Phone: Start: 05-24-2023 Non-patient / Non-visit Dr. Aparna Tabor Work Phone: [facility] Start: 05-19-2023 End: 05-19-[address] Nikky Tabor Work Phone: [facility] Work Phone: Start: 05-19-2023 End: 05-19-[address] Nikky Tabor Work Phone: [facility]-Pulmonary Services/Neurology Work Phone: Start: 04-22-2023 End: 04-22-[address] Nikky Tabor Work Phone: [facility] Work Phone: Start: 04-22-2023 End: 04-22-[address] Nikky Tabor Work Phone: [facility]-Pulmonary Medicine [facility] Work Phone: Start: 04-01-2023 End: 04-01-[address] Nikky Tabor Work Phone: [facility] Work Phone: Start: 04-01-2023 End: 04-01-[address] Nikky Tabor Work Phone: [facility]-Outpatient Bone Densitometry Work Phone: Start: 03-16-2023 End: 03-16-[address] Nikky Tabor Work Phone: [facility]-Pulmonary Medicine [facility] Work Phone: Start: 01-18-2023 End: 01-18-2023 Nikky Tabor DO Work Phone: [facility] Start: 01-14-2023 ambulatory Nikky Tabor DO [facility] Start: 01-13-2023 End: 01-13-2023 Patient encounter procedure Nikky Tabor DO Work Phone: [facility]; [facility] Work Phone: Start: 01-13-2023 Nikky pruitt DO Work Phone: [facility] Start: 01-08-2023 End: 01-08-[address] Nikky Tabor Work Phone: [facility] Work Phone: Start: 01-08-2023 End: 01-08-[address] [facility] Start: 12-29-2022 End: 12-29-[address] Nikky Tabor Work Phone: [facility] Work Phone: Start: 12-29-2022 End: 12-29-[address] Nikky Tabor Work Phone: [facility]-Outpatient Breast Imaging Start: 12-19-2022 End: 12-19-2022 Emergency department patient visit Dr. Nikky Tabor Work Phone: [facility]-Emergency Department Start: 10-23-2022 End: 10-23-[address] Nikky Tabor Work Phone: [facility] Work Phone: Start: 10-23-2022 End: 10-23-[address] Nikky Tabor [facility] Phone[facility] Start: 10-22-2022 End: 10-22-[address] Nikky Tabor Work Phone: [facility] Work Phone: Start: 10-22-2022 End: 10-22-[address] Nikky Tabor Work Phone: [facility]-Pulmonary Services/Neurology Start: 10-22-2022 End: 10-22-[address] Nikky Tabor Work Phone: [facility]-Pulmonary Medicine [facility] Start: 10-15-2022 Non-patient / Non-visit Dr. Aparna Tabor Work Phone: [facility] Start: 10-15-2022 End: 10-15-[address] Nikky Tabor Work Phone: [facility] Work Phone: Start: 10-15-2022 End: 10-15-[address] [facility] Start: 10-13-2022 End: 10-13-2022 Nikky Tabor DO Work Phone: [facility] Start: 10-07-2022 End: 10-07-[address] Nikky Tabor Work Phone: [facility] Start: 10-07-2022 End: 10-09-2022 Office outpatient visit 10 minutes Nikky Tabor DO Work Phone: [facility] Start: 10-07-2022 Nikky pruitt DO Work Phone: [facility] Start: 09-11-2022 End: 09-11-2022 ambulatory [facility] Work Phone: Start: 09-11-2022 End: 09-11-2022 Discharged Recurring [facility]-Physical Therapy Start: 08-17-2022 Registered Recurring [facility]-Physical Therapy Start: 08-14-2022 End: 08-14-2022 ambulatory [facility] Work Phone: Start: 08-14-2022 End: 08-14-2022 Patient encounter procedure Adama Alonso LPN [facility]; [facility] Work Phone: Start: 08-14-2022 End: 08-14-2022 Office outpatient visit 10 minutes Nikky Sharona DO Work Phone: [facility] Start: 08-05-2022 End: 08-05-2022 Office outpatient visit 5 minutes Nikky Sharona DO Work Phone: [facility] Start: 07-15-2022 End: 07-15-2022 Office outpatient visit 25 minutes Nikky Sharona DO Work Phone: [facility] Start: 07-15-2022 Nikky Fearo n DO Work Phone: [facility] Start: 07-06-2022 End: 07-06-2022 ambulatory [facility] Work Phone: Start: 07-06-2022 End: 07-06-2022 Patient encounter procedure [facility] Start: 07-06-2022 Nikky Fearo n DO Work Phone: [facility] Start: 07-06-2022 End: 07-06-2022 Office outpatient visit 15 minutes Nikky Sharona DO Work Phone: [facility] Start: 05-05-2022 End: 05-05-2022 Office outpatient visit 15 minutes Nikky Sharona DO Work Phone: [facility] Start: 03-13-2022 End: 03-22-2022 Office outpatient visit 25 minutes Nikky Sharona DO Work Phone: [facility] Start: 03-13-2022 Nikky Fearo n DO Work Phone: [facility] Start: 03-12-2022 End: 03-12-2022 Nikky Sharona DO Work Phone: [facility] Start: 03-11-2022 Telephone encounter Madi vallejo MD Work Phone: General Surgery Comment on above: Patient Question Start: 01-01-2022 End: 01-01-2022 Patient encounter procedure Tamela Bang CMA [facility]; [facility] Work Phone: Start: 01-01-2022 End: 01-01-2022 Periodic preventive med est patient 65yrs& older Nikky Sharona DO Work Phone: [facility] Start: 12-25-2021 End: 12-25-[address] Nikky Tabor Work Phone: [facility]-Outpatient Breast Imaging Start: 12-24-2021 End: 06-29-2022 Nikky Tabor DO Work Phone: [facility] Start: 10-06-2021 End: 10-06-[address] Nikky Tabor Work Phone[facility] Start: 06-26-2021 End: 06-26-2021 Nikky Tabor DO Work Phone: [facility] Start: 06-18-2021 End: 06-18-2021 Office outpatient visit 25 minutes Nikky Sharona DO Work Phone: [facility] Start: 12-23-2020 End: 12-23-2020 Patient encounter procedure Coral Moncada LPN [facility]; [facility] Work Phone: Start: 12-23-2020 End: 12-23-2020 Periodic preventive med est patient 65yrs& older Nikky Sharona DO Work Phone: [facility] Start: 12-11-2020 End: 12-11-2020 Office outpatient visit 25 minutes Nikky Sharona [facility] Start: 12-11-2020 Review Nikky Tabor [facility] Start: 11-07-2020 End: 11-07-2020 Annotation/Addendum Nikky Tabor [facility] Start: 11-07-2020 End: 11-07-2020 Nikky Sharona DO Work Phone: [facility] Start: 11-05-2020 End: 11-05-2020 Phone Encounter Nikky Tabor [facility] Start: 11-05-2020 End: 11-05-2020 Nikky Tabor DO Work Phone: [facility] Start: 09-03-2020 End: 09-03-2020 Annotation/Addendum Nikky Tabor [facility] Start: 09-03-2020 End: 09-03-2020 Nikkydontae Tabor DO Work Phone: [facility] Start: 07-18-2020 End: 07-18-2020 Office outpatient visit 25 minutes Nikky Tabor [facility] Start: 07-11-2020 End: 07-11-2020 Office outpatient visit 15 minutes Nikky Tabor [facility] Start: 06-12-2020 End: 06-12-2020 Office outpatient visit 25 minutes Nikky Tabor [facility] Start: 04-29-2020 End: 04-29-2020 Office outpatient visit 15 minutes Nikky Tabor [facility] Start: 12-21-2019 End: 12-21-2019 Office outpatient visit 10 minutes Nikky Tabor [facility] Start: 12-07-2019 End: 12-07-2019 Office outpatient visit 15 minutes Nikky Tabor [facility] Start: 11-17-2019 End: 11-17-2019 Phone Encounter Nikky Tabor [facility] Start: 11-17-2019 End: 11-17-2019 Nikkychito Tabor DO Work Phone: [facility] Start: 11-16-2019 End: 11-16-2019 Patient encounter procedure Tamela Merritt ODONNELL [facility]; [facility] Work Phone: Start: 11-16-2019 End: 11-16-2019 Periodic preventive med est patient 65yrs& older Nikky Tabor [facility] Start: 10-06-2019 End: 10-06-2019 Patient encounter procedure JOHAN DPM [facility] Start: 09-12-2019 End: 09-12-2019 Annotation/Addendum Nikky Tabor [facility] Start: 09-12-2019 End: 09-12-2019 Nikky Tabor DO Work Phone: [facility] Start: 09-07-2019 End: 09-07-2019 Office outpatient visit 15 minutes Nikky Tabor [facility] Start: 05-17-2019 End: 05-17-2019 Office outpatient visit 25 minutes Nikky Tabor [facility] Start: 11-14-2018 End: 11-14-2018 Patient encounter procedure Nikky Tabor DO Work Phone: [facility] Start: 11-14-2018 End: 11-14-2018 Periodic preventive med est patient 65yrs& older Nikky Sharona [facility] Start: 09-14-2018 End: 09-14-2018 Office outpatient visit 15 minutes Nikky Sharona [facility] Start: 07-04-2018 End: 07-04-2018 Office outpatient visit 15 minutes Nikky Sharona [facility] Start: 06-14-2018 End: 06-14-2018 Office outpatient visit 15 minutes Nikky Sharona [facility] Start: 05-19-2018 End: 05-19-2018 Office outpatient visit 15 minutes Nikky Sharona [facility] Start: 11-16-2017 End: 11-16-2017 Office outpatient visit 25 minutes Nikky Sharona [facility] Start: 11-15-2017 End: 11-15-2017 Phone Encounter Nikky Sharona [facility] Start: 11-15-2017 End: 11-15-2017 Nikky Tabor DO Work Phone: [facility] Start: 11-10-2017 End: 11-10-2017 Patient encounter procedure Nikky Tabor DO Work Phone: [facility] Start: 11-10-2017 End: 11-10-2017 Periodic preventive med est patient 65yrs& older Nikky Tabor [facility] Start: 07-08-2017 End: 07-08-2017 Office outpatient visit 5 minutes Nikky Sharona [facility] Start: 12-23-2016 End: 12-23-2016 Phone Encounter Nikky Tabor [facility] Start: 12-23-2016 End: 12-23-2016 Nikky Tabor DO Work Phone: [facility] Start: 11-02-2016 End: 11-02-2016 Patient encounter status Nikky Tabor DO Work Phone: [facility] Start: 11-02-2016 End: 11-02-2016 Periodic preventive med est patient 65yrs& older Nikky Tabor [facility] Start: 09-08-2016 End: 09-08-2016 Patient encounter Nikky Tabor [facility] Start: 09-08-2016 End: 09-08-2016 Nikky Tabor DO Work Phone: [facility] Start: 05-19-2016 End: 05-21-2016 Patient encounter Nikky Tabor [facility] Start: 05-19-2016 End: 05-21-2016 Nikky Tabor DO Work Phone: [facility] Start: 05-14-2016 End: 05-14-2016 Phone Encounter Nikky Tabor [facility] Start: 05-14-2016 End: 05-14-2016 Nikky Tabor DO Work Phone: [facility] Start: 05-07-2016 End: 05-07-2016 Office outpatient visit 15 minutes Nikky Tabor [facility] Start: 04-15-2016 End: 04-15-2016 Phone Encounter Nikky Tabor [facility] Start: 04-15-2016 End: 04-15-2016 Nikky Tabor DO Work Phone: [facility] Start: 04-08-2016 End: 04-08-2016 Patient encounter Nikky Tabor [facility] Start: 04-08-2016 End: 04-08-2016 Nikky Tabor DO Work Phone: [facility] Start: 03-31-2016 End: 03-31-2016 Patient encounter Nikky Tabor [facility] Start: 03-31-2016 End: 03-31-2016 Nikky Tabor DO Work Phone: [facility] Start: 12-09-2015 End: 12-09-2015 Office outpatient visit 15 minutes Nikky Tabor [facility] Start: 11-04-2015 End: 11-04-2015 Refill Request Nikky Tabor [facility] Start: 11-04-2015 End: 11-04-2015 Nikky Tabor DO Work Phone: [facility] Start: 10-31-2015 End: 10-31-2015 Patient encounter status Nikky Sharona DO Work Phone: [facility] Start: 10-31-2015 End: 10-31-2015 Periodic preventive med est patient 40-64yrs Nikky Sharona [facility] Start: 04-23-2015 End: 04-23-2015 Periodic preventive med est patient 18-39 yrs Nikky Sharona [facility] Start: 03-18-2015 End: 03-18-2015 Office outpatient visit 15 minutes Nikky Tabor [facility] Start: 02-07-2015 End: 02-07-2015 Office outpatient visit 10 minutes Nikky Sharona [facility] Start: 02-07-2015 End: 02-07-2015 Office outpatient visit 25 minutes Nikky Sharona [facility] Start: 02-01-2015 End: 02-01-2015 Office outpatient visit 15 minutes Nikky Sharona [facility] Start: 10-29-2014 End: 10-29-2014 Office outpatient visit 5 minutes Nikky Tabor [facility] Start: 07-10-2014 End: 07-10-2014 Office outpatient visit 10 minutes Nikky Tabor [facility] Start: 06-14-2014 End: 06-14-2014 Office outpatient visit 5 minutes Nikky Sharona [facility] Start: 06-12-2014 End: 06-12-2014 Annotation/Addendum Nikky Tabor [facility] Start: 06-12-2014 End: 06-12-2014 Nikkydontae Tabor DO Work Phone: [facility] Start: 05-12-2013 End: 05-12-2013 Patient encounter Nikky Sharona [facility] Start: 05-12-2013 End: 05-12-2013 Nikkydontae Tabor DO Work Phone: [facility] Start: 11-07-2012 End: 11-07-2012 Office outpatient visit 25 minutes Nikky Tabor [facility] Start: 06-21-2012 End: 06-21-2012 Patient encounter Nikky Sharona [facility] Start: 06-21-2012 End: 06-21-2012 Nikky Sharona DO Work Phone: [facility] Start: 06-16-2011 End: 06-16-2011 Patient encounter Nikky Sharona [facility] Start: 06-16-2011 End: 06-16-2011 Nikky Tabor DO Work Phone: [facility] Start: 05-08-2011 End: 05-08-2011 Phone Encounter Nikky Tabor [facility] Start: 05-08-2011 End: 05-08-2011 Nikky Tabor DO Work Phone: [facility] Start: 02-05-2011 End: 02-05-2011 Phone Encounter Nikky Tabor [facility] Start: 02-05-2011 End: 02-05-2011 Nikky Tabor DO Work Phone: [facility] Start: 06-20-2010 End: 06-20-2010 Patient encounter Nikky Tabor [facility] Start: 06-20-2010 End: 06-20-2010 Nikky Tabor DO Work Phone: [facility] Start: 05-02-2010 End: 05-02-2010 Patient encounter Nikky Tabor [facility] Start: 05-02-2010 End: 05-02-2010 Nikky Tabor DO Work Phone: [facility] Start: 01-27-2010 End: 01-27-2010 Patient encounter Nikky Tabor [facility] Start: 01-27-2010 End: 01-27-2010 Nikky Tabor DO Work Phone: [facility] Start: 09-20-2009 End: 09-23-2009 Patient encounter Nikky Tabor [facility] Start: 09-20-2009 End: 09-23-2009 Nikky Tabor DO Work Phone: [facility] Start: 07-19-2008 End: 07-19-2008 Patient encounter Nikky Tabor [facility] Start: 07-19-2008 End: 07-19-2008 Nikky Tabor DO Work Phone: [facility] Start: 07-04-2007 End: 07-04-2007 Patient encounter Nikky Tabor [facility] Start: 07-04-2007 End: 07-04-2007 Nikky Avendanoon DO Work Phone: [facility] Start: 02-09-2007 End: 02-09-2007 Refill Request Nikky Avendanoon [facility] Start: 02-09-2007 End: 02-09-2007 Nikky Tabor DO Work Phone: [facility] Start: 12-31-2006 End: 12-31-2006 Patient encounter Nikky Avendanoon [facility] Start: 12-31-2006 End: 12-31-2006 Historical Summary Nikky Sharona [facility] Start: 12-31-2006 End: 12-31-2006 Nikky Tabor DO Work Phone: [facility] Patient encounter procedure Millie Green LPN [facility] Work Phone: Patient encounter procedure Nikky Sharona DO Work Phone: [facility]; [facility] Work Phone: Patient encounter procedure Millie Green LPN [facility]; [facility] Work Phone: Patient encounter procedure Millie Peter DOUGLASS [facility]; [facility] Work Phone: Patient encounter procedure Brittnee Kruger MA [facility]; [facility] Work Phone: Patient encounter procedure Sade [facility]; [facility] Work Phone: Patient encounter procedure S[facility]; [facility] Work Phone: Patient encounter procedure S[facility]; [facility] Work Phone: Patient encounter status Kathy Rivera RN [facility]; [facility] Work Phone: Comment on above: 2-16 new to medicare reviewed with patient all tests, answered all questions, need flu and pneumonia updated, colonoscopy 08-14-14, Mammogram 08-19-15, [facility] Dr. Lovett pelvic , pap was , whisper test WNL, mini mental= 29/30 Procedures Date Procedure Procedure Detail Performing Clinician Start: 04-03-2025 Dual energy X-ray absorptiometry Dr. Nikky Tabor DO Work Phone: Start: 01-02-[address] Nikky Tabor DO Work Phone: Start: 12-31-[address] Nikky Tabor Work Phone: Start: 04-22-2023 Investigation of transfusion reaction Dr. Nikky Tabor Work Phone: Start: 04-22-[address] Nikky Tabor Work Phone: Start: 04-01-2023 Dual energy X-ray absorptiometry Dr. Nikky Tabor Work Phone: Start: 01-08-2023 End: 01-08-2023 Procedure Note: See Note; NOTES: [facility] [address] [place] [address]. [address] [place] [address] OFFICE VISIT Date of Service: 01/08/23 MR#: [id number] Acct: [id number] Name: JAKY SPENCER Rep #: [id number] : 1950 Provider: Dr. Scott sihna MD Age/Sex: 72/F [place] [facility] [place] Status: Signed Assessment and Plan Assessment and Plan (1) Acute viral bronchitis: Status: Acute (2) GERD (gastroesophageal reflux disease): Status: Acute (3) Vaccine counseling: Status: Acute Comment: shingrix vaccine 2 d ago with erythema of L arm at site. no obvious bacterial infection Orders: Orders CBC W/Diff, Automated Today D72.829 - Elevated white blood cell count, unspecified, I10 - Essential (primary) hypertension, R05.3 - Chronic cough Chest PA and Lateral Today D72.829 - Elevated white blood cell count, unspecified, R05.3 - Chronic cough Medications: New doxycycline hyclate 100 mg PO BID 10 caps 0RF Refilled prednisone 40 mg (2 x 20 mg) PO DAILY 10 tabs 0RF cough Plan Impression: New viral URI with moderately severe postviral subacute bronchitis, which started like a typical cold, very unlikely to be recurrent pertussis. ???She is afebrile with no tachycardia, 96% O2 saturation on room air. ???Jaky likely came down with a new viral URI because she is run down from 2 other recent infections.??? No signs of acute bacterial infection, chest x-ray is normal white count has returned to normal on today's CBC.??? No left shift. -? 5-day course of prednisone, doxycycline 100 twice daily for 5 days -? She will call us or go to ER if she is worse 2 days of erythema of the left arm at the site of her Shingrix vaccination 2 days ago.??? Viral gastroenteritis in mid December 2022, which she apparently caught from her during a [place] vacation Recent recovery from whooping cough, IgM and IgG positive for Bordetella pertussis in October 2022.??? She completed a course of prednisone and Z-Liliana and felt resolved after a week.??? Previous PFTs and chest x-ray normal, but when she was seen in the emergency room on December 19 her white count was 16.5 with a left shift.??? Abdominal CT was negative including lung bases. Allergic rhinitis postnasal drip on Atrovent nasal spray as needed Recent viral gastroenteritis, dehydration, seen in the ER 12/19/[address] but elevated white count. Other medical problems including GERD on omeprazole, Hypertension, eosinophilic esophagitis, hemorrhoids, history of malignant melanoma, hypertension. Plan: Urgent chest x-ray and CBC DIF in the office today was done and were normal Prednisone for 5 days, doxycycline for 5 days Follow-up if needed, call if worse. HPI Cough Details: 72-year-old female who had pertussis (whooping cough) in October 2022 returns to [facility] for recurrent cough. History of present illness: She is completely cleared her pertussis symptoms by late October.??? Then she and her went to [place] on vacation in December.??? He came down with gastroenteritis which she got a few days later, he was hospitalized, she was in the emergency room dehydrated with a white count of 16,000.??? Abdominal CT was negative.??? She recovered from that but came down with another what felt like a viral infection starting with upper respiratory congestion then moving to her chest and triggering severe persistent coughing for the past 2 weeks.??? She also has mild dyspnea on exertion. Today, she has paroxysms of dry cough in the office, associated with urinary incontinence soaking 3 pads a day, but no vomiting syncope or dizziness.??? She denies chest pain wheezing sinus problems congested ears.??? The Atrovent nasal spray has not helped.??? She tried Flovent a couple times a few days ago which did not help.??? She is using omeprazole 40 daily and still having a little breakthrough reflux.??? Denies any fevers chills or sweats.??? No diarrhea nausea.??? When she settles to sleep she does not wake up from coughing she is having postnasal drip and blowing her nose frequently with lots of clear discharge. Her stat CBC and chest x-ray today were within normal limits.??? She got her shingles vaccine 2 days ago, and is having a significant erythematous rash reaction of her left arm with no purulence adenopathy and only mild swelling. When I last saw her October 22, she had a negative respiratory PCR, but had a Bordetella pertussis IgG and IgM that were positive.??? COVID-19 STEPHANIE was negative on 10/22/2022 and 07/30/2020. She was started on prednisone and a Z-Liliana on 11/26, Atrovent nasal, Flovent, and omeprazole 40 mg twice daily for postnasal drip and acid reflux. ???When we spoke by telephone a week later, she stated her cough had resolved.??? She returns to the office today because she feels that her cough is come back.??? On 12/19/2022 she was seen in the ER, for nausea, vomiting and diarrhea likely due to a viral gastroenteritis (her had similar symptoms several days prior after a [place] vacation).??? She was treated with Zofran and Bentyl.??? Abdominal pelvic CT was negative except for diverticulosis.??? The lung bases were clear.??? Her white count was 16.5 with 89% neutrophils 0 eosinophils, BUN of 22, creatinine normal at 1.02.??? Liver function tests were normal.??? Lipase was was normal at 27.??? Pulmonary function test October was normal, chest x-ray October 29 was normal. Intake Vital Signs 12/19/22 14:41 01/08/23 13:16 01/08/23 13:18 Height 5 ft 2 in 5 ft 2 in 5 ft 2 in Weight: 155 lb 155 lb BMI 28.3 28.3 BP 134/109 H 136/78 H Blood Pressure Location Lt brachial Position Sitting Respiration 22 H 18 Pulse 100 86 Pulse Source Monitor Temp 98 F 97.7 F L Temperature Source Temporal Artery Pulse Oximetry (%) 99 96 Oxygen Delivery Method room air Intake Visit Reasons: Cough Chief Complaint: Annual Ingot Weigher Required: No DME Vendor: N/A Accompanied by: Self Is patient in pain?: No Allergies No Known Allergies Allergy (Verified 01/08/23 13:18) Medications calcium carbonate 600 mg-vitamin D3 10 mcg (400 unit) chewable tablet (Calcium 600 with Vitamin D3) 1 tab PO QDAY 11/16/17 [History Confirmed 01/08/23] omega-3 fatty acids 1,000 mg capsule (Fish Oil Concentrate) 1,000 mg PO QDAY 11/16/17 [History Confirmed 01/08/23] verapamil 180 mg 24 hr capsule,extended release 180 mg PO QDAY BP 11/16/17 [History Confirmed 01/08/23] hydrochlorothiazide 25 mg tablet 25 mg PO QAM bp 07/15/20 [History Confirmed 01/08/23] levothyroxine 25 mcg tablet 50 mcg PO DAILY thyroid 07/26/20 [History Confirmed 01/08/23] solifenacin 5 mg tablet (Vesicare) 5 mg PO DAILY 10/06/21 [History Confirmed 01/08/23] clobetasol 0.05 % topical ointment 1 applic topical .COMPLEX #15 grams 10/07/22 [Rx Confirmed 01/08/23] azithromycin 250 mg tablet See Rx Instructions PO .COMPLEX #6 tabs 10/22/22 [Rx Confirmed 01/08/23] fluticasone propionate 220 mcg/actuation HFA aerosol inhaler (Flovent HFA) 2 puff inhalation BID cough #12 grams 10/22/22 [Rx Confirmed 01/08/23] ipratropium bromide 21 mcg (0.03 %) nasal spray 2 spray intranasal BID-TID PRN cough #30 mL 10/22/22 [Rx Confirmed 01/08/23] omeprazole 40 mg capsule,delayed release 40 mg PO BID reflux #60 caps 10/26/22 [Rx Confirmed 01/08/23] dicyclomine 20 mg tablet 20 mg PO BID #20 tabs 12/19/22 [Rx Confirmed 01/08/23] ondansetron 4 mg disintegrating tablet 4 mg PO Q8H PRN PRN Nausea #10 tabs 12/19/22 [Rx Confirmed 01/08/23] doxycycline hyclate 100 mg capsule 100 mg PO BID #10 caps 01/08/23 [Rx Confirmed 01/08/23] prednisone 20 mg tablet 40 mg PO DAILY cough #10 tabs 01/08/23 [Rx Confirmed 01/08/23] [facility] Medical History (Updated 01/08/23 @ 13:[address] Scott Tran MD) Acute viral bronchitis Chronic cough Eosinophilic esophagitis Fundic gland polyps of stomach, benign GERD (gastroesophageal reflux disease) Hemorrhoids History of malignant melanoma HTN (hypertension) Leukocytosis Vaccine counseling Surgical History H/O section H/O esophagogastroduodenoscopy ( 11/29/17) S/P colonoscopy ( 11/29/17) S/P laparoscopic cholecystectomy Family History Mother No problems noted. Brother Bladder cancer Social History household members: spouse Smoking Status: Never smoker second hand exposure: No alcohol intake: never substance use type: does not use caffeine: Yes what type of physical activity do you participate in: walking frequency: 1-2 times per week seatbelt use: always do you feel safe at home: Yes additional social history: - [place] Exam Const HEENT normal, tympanic membranes normal, no pharyngeal erythema. Neck is supple Chest is clear bilaterally with no wheezes rales or rhonchi. Breath sounds are normal with no coarseness. Unlabored respirations, symmetrical chest, full excursion. Small cough with forced vital capacity maneuver. Coughing nonproductively, continuously in the office. Heart normal S1-S2 with no murmurs rubs or gallop Abdomen is soft Extremities no clubbing cyanosis or edema. There is erythema about 4 x 5 and 2 x 3 patchy erythematous superficial areas in the left arm around the site of her Shingrix vaccination 2 days ago. Nothing raised, purulent, no target lesion. Supplemental Info Chest x-ray and CBC are normal today Coding Level of Care Code Off vis,est,level 4 Diagnoses Acute viral bronchitis J20.8 GERD (gastroesophageal reflux disease) K21.9 Vaccine counseling Z71.85 Time Spent (min) 40 Comment Acute illness, stat labs and imaging, new prescriptions 01/08/23 1357 <Electronically signed by Scott Tran MD> Date __ Scott Tran MD Cosigner Signature: Date __ (if applicable) CC: DO Nikky Rivera DO Work Phone: Start: 01-08-2023 Plain chest X-ray Dr. Nikky Tabor Work Phone: Start: 01-08-2023 End: 01-08-2023 Procedure Note: See Note; NOTES: [facility] Imaging Services [address] [place] [id number] Chest PA and Lateral MR#: [id number] Acct: [id number] Name: JAKY SPENCER Rep #: [id number] : 1950 F 72 From: Sergio toro MD PCP: Dr. Nikky Tabor DO Status: REG CLI Study: Chest PA and Lateral Date of Exam: 01/08/23 Exam# [id number] Ordering Dr: Scott Tran MD STUDY: X-RAY CHEST REASON FOR EXAM: Female, 72 years old. Recurring cough. TECHNIQUE: PA and lateral views of the chest. COMPARISON: Comparison is made with prior study dated October 23, 2022. __ FINDINGS: Surgical clips are seen in the left axillary region. The lungs are clear and expanded. There is no demonstrated pleural abnormality. Normal size heart. Normal mediastinum and abril. Normal visualized pulmonary arteries. There is atherosclerotic tortuosity of the aortic arch and descending thoracic aorta. There are degenerative changes of the visualized thoracic spine. Normal visualized ribs, clavicles, and shoulders. There is no demonstrated abnormality of the visualized soft tissue structures of the upper abdomen. __ RAD/Chest PA and Lateral IMPRESSION: No acute abnormality is seen. There has been no change as compared to prior study. Electronically Signed: Sergio Yang MD at 13:57 EDT Reading Location ID and State: [facility] / [place] , Service support , CC: Dr. Nikky Tabor DO; Dr. Scott Tran MD Manager It Training: Signed Nikky Tabor DO Work Phone: Start: 12-29-[address] Nikky Tabor Work Phone: Start: 12-29-2022 End: 12-29-2022 Procedure Note: See Note; NOTES: [facility] Imaging Services [address] [place] [address] SCRN MAMM (CAD)W/DARREN BILAT MR#: [id number] Acct: [id number] Name: JAKY SPENCER Rep #: [id number] : 1950 F 72 From: Sergio toro MD PCP: Dr. Nikky Tabor DO Status: REG CL Study: SCRN MAMM (CAD)W/DARREN BILAT Date of Exam: 12/06 01/26 Exam# [id number] Ordering Dr: Anna Cho NP SOFT BOARDER -Caitlin MAMMOGRAPHY - BILATERAL SCREENING REASON FOR EXAM: Female, 72 years old. Routine annual screening examination. PERTINENT HISTORY: Non-contributory. Status post left axillary liliane resection. TECHNIQUE: Digital bilateral breast darren (3D mammographic acquisition) in the CC and MLO projections. 2-D mediolateral oblique (MLO) and craniocaudad (CC) views of both breasts were obtained. CAD: Full Field Digital Mammography with Computer Added Detection was performed. COMPARISON: Comparison is made with prior study December 25, 2021 and December 24, 2020. __ FINDINGS: Breast Composition: The breasts are extremely dense, which lowers the sensitivity of mammography. There are no dominant masses or suspicious calcifications. Stable small benign-appearing right axillary lymph nodes. Stable deformity of the left axillary region. No other significant abnormalities are identified. There has been no significant change since the prior study. __ BI/SCRN MAMM (CAD)W/DARREN BILAT IMPRESSION: Stable bilateral screening mammogram. Yearly follow-up mammogram recommended. (A) __ ASSESSMENT CATEGORY: BIRADS Category 2: Benign. A letter regarding these results will be sent to the patient by the facility within 30 days. Approximately 10% of breast cancers are not detected by mammography. A normal mammogram should not delay biopsy of a clinically suspicious abnormality. [id number] Electronically Signed: Sergio Yang MD at 12:08 EDT , CC: SHAKILA Cho; Dr. Nikky Tabor DO Manager It Training: Signed Nikky Tabor DO Work Phone: Start: 12-19-2022 Computed tomography of abdomen and pelvis with intravenous contrast Dr. Nikky Tabor Work Phone: Start: 12-19-2022 End: 12-19-2022 Procedure Note: See Note; NOTES: [facility] Imaging Services [address] [place] [address] Abdomen/Pelvis W IV Cont ONLY MR#: [id number] Acct: [id number] Name: JAKY SPENCER Rep #: [id number] : 1950 F 72 From: Colton Calvo DO PCP: Dr. Nikky Tabor, DO Status: REG ER Study: Abdomen/Pelvis W IV Cont ONLY Date of Exam: Exam# [id number] Ordering Dr: Bobby Escobedo SOFT BOARDER-C STUDY: CT ABDOMEN AND PELVIS WITH CONTRAST REASON FOR EXAM: Female, 72 years old. abdominal pain RADIATION DOSAGE (If Supplied By Facility): CTDIvol = ( 17.76 ) mGy, DLP = ( 749.43 ) mGycm TECHNIQUE: Transaxial images were obtained from the dome of the diaphragm to the symphysis pubis without oral contrast. IV 100mL Isovue-300 was administered. Sagittal and coronal images were reconstructed. Individualized dose optimization techniques were used for this CT. COMPARISON: None. __ FINDINGS: The visualized lung bases are unremarkable. The visualized portions of the heart are within normal limits. Granulomatous calcifications in the spleen and liver. Normal gallbladder and extrahepatic biliary system. Normal pancreas. Normal bilateral adrenal glands. Normal right kidney. Up to 3.7 cm cysts in the left kidney. 1 hiatal hernia. There is a probable duodenal diverticulum. Diverticulosis of the colon. The appendix is visualized and appears normal. Calcified abdominal aorta. Normal inferior vena cava. Normal retroperitoneum. Normal urinary bladder. There is a fatty umbilical hernia. Normal osseous structures. __ CT/Abdomen/Pelvis W IV Cont ONLY IMPRESSION: Duodenal diverticulum. Colonic diverticulosis. Left renal cysts. Small fatty umbilical hernia. Electronically Signed: Colton Calvo DO at 16:24 EDT , CC: SHAKILA Escobedo; Dr. Nikky Tabor DO Manager It Training: Signed Nikky Tabor DO Work Phone: Start: 12-19-2022 End: 12-19-2022 Procedure Note: See Note; NOTES: [facility] Medical Records Department [address] [place] [address] Emergency Department Summary 12/19/22 MR#: [id number] Acct: [id number] Name: JAKY SPENCER Rep #: [id number] : 1950 72 From: Bobby JHAVERI PCP: Dr. Nikky Tabor, Status:DEP ER Location: ED HPI <SHAKILA Bourgeois - Last Filed: 12/19/22 17:19> History of Present Illness Chief Complaint: Nausea/Vomiting/Diarrhea Narrative Narrative: Patient is a 72-year-old female with history of hypertension presents to the emergency department with 2 days of nausea vomiting diarrhea. Patient is here with her who had similar symptoms 4 to 5 days ago. They were recently in [place] for a vacation, the became ill with nausea vomiting diarrhea. He started to improve, patient returned home from their vacation 2 days ago, and started having symptoms last night. Patient is now complaining of nausea, vomiting, diarrhea. Patient denies any blood in stool or vomit. Patient did try Pepto-Bismol however this did not help. Patient states she feels dehydrated and is here for evaluation [facility] <SHAKILA Bourgeois - Last Filed: 12/19/22 17:19> [facility] Medical History (Updated 12/19/22 @ 17:17 by SHAKILA Bourgeois) Chronic cough Eosinophilic esophagitis Fundic gland polyps of stomach, benign GERD (gastroesophageal reflux disease) Hemorrhoids History of malignant melanoma HTN (hypertension) Home Medications calcium carbonate 600 mg-vitamin D3 10 mcg (400 unit) chewable tablet (Calcium 600 with Vitamin D3) 1 tab PO QDAY 11/16/17 [History Last Taken Unknown] omega-3 fatty acids 1,000 mg capsule (Fish Oil Concentrate) 1,000 mg PO QDAY 11/16/17 [History Last Taken 07/25/20] verapamil 180 mg 24 hr capsule,extended release 180 mg PO QDAY BP 11/16/17 [History Last Taken 07/31/20 05:30] hydrochlorothiazide 25 mg tablet 25 mg PO QAM bp 07/15/20 [History Last Taken Unknown] levothyroxine 25 mcg tablet 50 mcg PO DAILY thyroid 07/26/20 [History Last Taken 07/31/20 05:30] solifenacin 5 mg tablet (Vesicare) 5 mg PO DAILY 10/06/21 [History Last Taken Unknown] clobetasol 0.05 % topical ointment 1 applic topical .COMPLEX #15 grams 10/07/22 [Rx Last Taken Unknown] azithromycin 250 mg tablet See Rx Instructions PO .COMPLEX #6 tabs 10/22/22 [Rx Last Taken Unknown] fluticasone propionate 220 mcg/actuation HFA aerosol inhaler (Flovent HFA) 2 puff inhalation BID cough #12 grams 10/22/22 [Rx Last Taken Unknown] ipratropium bromide 21 mcg (0.03 %) nasal spray 2 spray intranasal BID-TID PRN cough #30 mL 10/22/22 [Rx Last Taken Unknown] prednisone 20 mg tablet 40 mg PO DAILY cough #14 tabs 10/22/22 [Rx Last Taken Unknown] omeprazole 40 mg capsule,delayed release 40 mg PO BID reflux #60 caps 10/26/22 [Rx Last Taken Unknown] dicyclomine 20 mg tablet 20 mg PO BID #20 tabs 12/19/22 [Rx Last Taken Unknown] ondansetron 4 mg disintegrating tablet 4 mg PO Q8H PRN PRN Nausea #10 tabs 12/19/22 [Rx Last Taken Unknown] Allergy/AdvReac Type Severity Reaction Status Date / Time No Known Allergies Allergy Verified 12/19/22 14:44 Family History Mother No problems noted. Brother Bladder cancer Surgical History H/O section H/O esophagogastroduodenoscopy ( 11/29/17) S/P colonoscopy ( 11/29/17) S/P laparoscopic cholecystectomy Social History household members: spouse Smoking Status: Never smoker second hand exposure: No alcohol intake: never substance use type: does not use caffeine: Yes what type of physical activity do you participate in: walking frequency: 1-2 times per week seatbelt use: always do you feel safe at home: Yes additional social history: - Godfrey MIRANDA <SHAKILA Bourgeois - Last Filed: 12/19/22 17:19> ROS ED ROS Narrative Constitutional: Negative for fever, chills, weight loss, weakness Eyes: Negative for vision loss, vision change, double vision ENT: Negative for any sore throat, ear pain, congestion Cardiovascular: Negative for any chest pain, tightness, palpitations Respiratory: Negative for any cough, sputum production, hemoptysis, dyspnea, dyspnea on exertion, orthopnea Gastrointestinal: Negative for any abdominal pain, constipation, blood in stool, blood in vomit. Positive for nausea, vomiting, diarrhea : Negative for any urinary frequency, dysuria, retention, blood in urine Muscle skeletal: Negative for any muscle joint pain, stiffness, myalgias, arthralgias, neck pain, back pain Neurological: Negative for any headache, syncope, numbness or tingling, dizziness Skin: Negative for any rashes, lumps, itching, abrasions, lacerations Psychiatric: Negative for any depression, anxiety, stress, suicidal ideation, homicidal ideation Hematologic: Negative for any easy bruising, excessive bruising, easy bleeding Allergies: Negative for any eczema, hives, rash EXAM <SHAKILA Bourgeois - Last Filed: 12/19/22 17:19> Physical Exam Narrative Exam Narrative: Vital signs reviewed. HEET: Head normocephalic atraumatic, TMs clear bilaterally. Posterior pharynx is clear, dry mucous membranes. Nares clear bilaterally. Neck: Supple with no lymphadenopathy or tenderness. No signs of meningismus, negative jolt sign. Cardiac: Regular rate and rhythm no murmurs gallops or rubs, equal peripheral pulses bilaterally. Respiratory: Lungs clear to auscultation bilaterally. No chest tenderness. Abdomen: Soft, nontender, nondistended. No abdominal bruit or pulsatile masses. No hepatosplenomegaly Extremities: No peripheral edema, no signs of gross trauma or deformity. Active full range of motion of all extremities. Neuro: Cranial nerves II through XII intact, no focal neurological deficits. Skin: Clean dry and intact with no rash, purpura, petechiae, vesicles or pustules. Backs/flank: No CVA tenderness, no midline spinal tenderness, no deformity. Psych: Normal mood and affect. No SI, HI or acute psychosis. Const Vital Signs: 12/19/22 14:41 12/19/22 17:01 12/19/22 19:02 Temperature 98 F Temperature Source Temporal Pulse Rate 100 90 88 Respiratory Rate 22 H 16 16 Blood Pressure 134/109 H 130/89 H 132/87 H Blood Pressure Mean 117 102 102 Pulse Ox 99 99 99 Oxygen Delivery Method Room Air <Dr. Jamie Mooney DO - Last Filed: 12/19/22 22:09> Physical Exam Const Vital Signs: 12/19/22 14:41 12/19/22 17:01 12/19/22 19:02 Temperature 98 F Temperature Source Temporal Pulse Rate 100 90 88 Respiratory Rate 22 H 16 16 Blood Pressure 134/109 H 130/89 H 132/87 H Blood Pressure Mean 117 102 102 Pulse Ox 99 99 99 Oxygen Delivery Method Room Air [facility] <SHAKILA Bourgeois - Last Filed: 12/19/22 17:19> [facility] Lab Data Labs: Laboratory Results - last 24 hr 12/19/22 12/19/22 15:00 15:00 WBC 16.5 H RBC 5.50 H Hgb 15.3 H Hct 45.8 MCV 83.3 MCH 27.8 MCHC 33.4 RDW Std Deviation 40.1 RDW Coeff of Perry 13.2 Plt Count 373 MPV 9.9 Immature Gran % (Auto) 0.400 Neut % (Auto) 89.4 H Lymph % (Auto) 6.0 L [place] % (Auto) 4.0 Eos % (Auto) 0.0 Baso % (Auto) 0.2 Absolute Neuts (auto) 14.8 H Absolute Lymphs (auto) 0.99 Nucleated RBC % 0 Sodium 137 Potassium 2.8 L Chloride 105 Carbon Dioxide 21.0 Anion Gap 11 BUN 22 H Creatinine 1.02 Estim Creat Clear Calc 38.85 Est GFR (MDRD) Af Amer 68 Est GFR (MDRD) Non-Af 57 L BUN/Creatinine Ratio 21.6 H Glucose 141 H Calcium 9.6 Total Bilirubin 0.40 AST 35 ALT 47 Alkaline Phosphatase 101 Total Protein 8.0 Albumin 4.0 Globulin 4.0 Albumin/Globulin Ratio 1.0 Lipase 27 Radiography Diagnostic Testing: Clinical Impression(s) from Imaging Studies Abdomen/Pelvis CT 12/19/22 15:01 IMPRESSION: Duodenal diverticulum. Colonic diverticulosis. Left renal cysts. Small fatty umbilical hernia. Electronically Signed: Colton Calvo DO at 16:24 EDT Reading Location ID and State: [facility] / [place] Tel [phone], Service support , Treatment and Re-Evaluation :: ED attending note: I evaluated the patient in conjunction with the KENDRA. I agree with his/her statements and above findings. I have personally performed a face to face assessment of the patient and have reviewed the KENDRA Note. I performed a substantive portion of the visit including all aspects of the following. I personally saw the patient performed chart review, physical exam, reviewed labs, imaging (if obtained), and formulated a treatment and management plan. 72-year-old female here with nausea vomiting abdominal pain after recent travel to [place]. No recent antibiotic use, recent hospitalizations. No melena hematochezia. History of abdominal surgeries. No fever. No chest pain or shortness of breath Exam: Nursing triage notes reviewed, Vital signs reviewed Constitutional: please see mdm HENT: MMM Eyes: Pupils equal round and reactive to light, Extraocular muscles intact Neck: No stridor, no JVD, full neck ROM Lungs: Clear to auscultation, No wheezing or rales. No increased work of breathing, no conversational dyspnea, no accessory muscle use, no nasal flaring. No respiratory distress noted Heart: Regular rate and rhythm, No murmurs, No rubs and No gallops, 2+ distal pulses (radial, femoral, posterior tibial) in all extremities Abdomen: Soft, minimal diffuse tenderness but no rigidity, rebound or guarding, no obvious peritoneal signs, no palpable pulsatile abdominal masses, no auscultated abdominal bruit : No CVAT Extremities: No edema Neuro: No focal neurological deficits, cranial nerves II through XII intact, 5/5 strength in all extremities. Intact sensation to light touch in all extremities, 2+ reflexes bilateral patella dens. Normal gait. No ataxia. Skin: No rash or lesions noted MDM/plan: Chief Complaint: Abdominal pain nausea External records reviewed: No recent imaging, history abdominal surgery I considered the following differential diagnosis: Perforation, obstruction, AAA, gastroenteritis, dehydration, CAROL, hepatobiliary pathology, anemia The patient was hemodynamically stable, afebrile, nontoxic-appearing. Abdominal exam was nonfocal and benign but given the patient advanced age history abdominal surgeries we obtain advanced imaging. Will give symptomatic treatment, flu, Zofran. Will dispo based on labs, images, reassessment, vital sign reassessment, repeat abdominal exam and share decision making Factors affecting care: History of hypothyroidism, history of abdominal surgery Social determinants of health: Former smoker, positive caffeine intake History obtained from others: The patient's Shared decision making: I will have a discussion with the patient and or visitors regarding risk/benefits of further testing or admission. They will be made aware of of the risk/benefits inherent in this decision they will be given the opportunity to voice understanding. Consults: Possibly general surgery if there is any acute intra-abdominal pathology identified Patient appears to be in no respiratory distress, patient appears nontoxic, vital signs are stable. Patient presents to the emergency department with nausea, vomiting, diarrhea is been ongoing for last 2 days. Patient's physical examination is consistent with gastroenteritis, viral-like illness. However patient will receive a full abdominal work-up with laboratory study as well as CT scan of the abdomen pelvis to rule out any diverticulitis, perforation, appendicitis. Patient's laboratory values show a leukocytosis with white blood count of 16.5, this could be reactive, patient is also hemoconcentrated, this could be secondary to dehydration nausea and vomiting. Patient's chemistries showed a hypokalemia with a potassium of 2.8, patient will receive 40 mill equivalents IV as well as 40 mill equivalents by mouth. Renal function was unremarkable. Lipase was negative. Patient did receive a CT scan of the abdomen pelvis, this showed a duodenal diverticulum, colonic diverticulosis, left renal cyst, small fatty umbilical hernia. No acute process. Patient was given IV fluids x2, Zofran, Bentyl. On reassessment, the patient felt much better. She will receive the 40 mill equivalent of potassium orally, this will be an oral challenge. At this time, patient will be treated for viral gastroenteritis. She be placed on Zofran, Bentyl for home. She will maintain hydration. She was given return precaution. I was able to speak with the patient's , he had no further questions, patient stable for discharge <Dr. Jamie Mooney DO - Last Filed: 12/19/22 22:09> [facility] Lab Data Labs: Laboratory Results - last 24 hr 12/19/22 12/19/22 15:00 15:00 WBC 16.5 H RBC 5.50 H Hgb 15.3 H Hct 45.8 MCV 83.3 MCH 27.8 MCHC 33.4 RDW Std Deviation 40.1 RDW Coeff of Perry 13.2 Plt Count 373 MPV 9.9 Immature Gran % (Auto) 0.400 Neut % (Auto) 89.4 H Lymph % (Auto) 6.0 L [place] % (Auto) 4.0 Eos % (Auto) 0.0 Baso % (Auto) 0.2 Absolute Neuts (auto) 14.8 H Absolute Lymphs (auto) 0.99 Nucleated RBC % 0 Sodium 137 Potassium 2.8 L Chloride 105 Carbon Dioxide 21.0 Anion Gap 11 BUN 22 H Creatinine 1.02 Estim Creat Clear Calc 38.85 Est GFR (MDRD) Af Amer 68 Est GFR (MDRD) Non-Af 57 L BUN/Creatinine Ratio 21.6 H Glucose 141 H Calcium 9.6 Total Bilirubin 0.40 AST 35 ALT 47 Alkaline Phosphatase 101 Total Protein 8.0 Albumin 4.0 Globulin 4.0 Albumin/Globulin Ratio 1.0 Lipase 27 Radiography Diagnostic Testing: Clinical Impression(s) from Imaging Studies Abdomen/Pelvis CT 12/19/22 15:01 IMPRESSION: Duodenal diverticulum. Colonic diverticulosis. Left renal cysts. Small fatty umbilical hernia. Electronically Signed: Colton Calvo DO at 16:24 EDT , Treatment and Re-Evaluation :: Patient appears to be in no respiratory distress, patient appears nontoxic, vital signs are stable. Patient presents to the emergency department with nausea, vomiting, diarrhea is been ongoing for last 2 days. Patient's physical examination is consistent with gastroenteritis, viral-like illness. However patient will receive a full abdominal work-up with laboratory study as well as CT scan of the abdomen pelvis to rule out any diverticulitis, perforation, appendicitis. Patient's laboratory values show a leukocytosis with white blood count of 16.5, this could be reactive, patient is also hemoconcentrated, this could be secondary to dehydration nausea and vomiting. Patient's chemistries showed a hypokalemia with a potassium of 2.8, patient will receive 40 mill equivalents IV as well as 40 mill equivalents by mouth. Renal function was unremarkable. Lipase was negative. Patient did receive a CT scan of the abdomen pelvis, this showed a duodenal diverticulum, colonic diverticulosis, left renal cyst, small fatty umbilical hernia. No acute process. Patient was given IV fluids x2, Zofran, Bentyl. On reassessment, the patient felt much better. She will receive the 40 mill equivalent of potassium orally, this will be an oral challenge. At this time, patient will be treated for viral gastroenteritis. She be placed on Zofran, Bentyl for home. She will maintain hydration. She was given return precaution. I was able to speak with the patient's , he had no further questions, patient stable for discharge ED attending note: I evaluated the patient in conjunction with the KENDRA. I agree with his/her statements and above findings. I have personally performed a face to face assessment of the patient and have reviewed the KENDRA Note. I performed a substantive portion of the visit including all aspects of the following. I personally saw the patient performed chart review, physical exam, reviewed labs, imaging (if obtained), and formulated a treatment and management plan. 72-year-old female here with nausea vomiting abdominal pain after recent travel to [place]. No recent antibiotic use, recent hospitalizations. No melena hematochezia. History of abdominal surgeries. No fever. No chest pain or shortness of breath Exam: Nursing triage notes reviewed, Vital signs reviewed Constitutional: please see mdm HENT: MMM Eyes: Pupils equal round and reactive to light, Extraocular muscles intact Neck: No stridor, no JVD, full neck ROM Lungs: Clear to auscultation, No wheezing or rales. No increased work of breathing, no conversational dyspnea, no accessory muscle use, no nasal flaring. No respiratory distress noted Heart: Regular rate and rhythm, No murmurs, No rubs and No gallops, 2+ distal pulses (radial, femoral, posterior tibial) in all extremities Abdomen: Soft, minimal diffuse tenderness but no rigidity, rebound or guarding, no obvious peritoneal signs, no palpable pulsatile abdominal masses, no auscultated abdominal bruit : No CVAT Extremities: No edema Neuro: No focal neurological deficits, cranial nerves II through XII intact, 5/5 strength in all extremities. Intact sensation to light touch in all extremities, 2+ reflexes bilateral patella dens. Normal gait. No ataxia. Skin: No rash or lesions noted MDM/plan: Chief Complaint: Abdominal pain nausea External records reviewed: No recent imaging, history abdominal surgery I considered the following differential diagnosis: Perforation, obstruction, AAA, gastroenteritis, dehydration, CAROL, hepatobiliary pathology, anemia The patient was hemodynamically stable, afebrile, nontoxic-appearing. Abdominal exam was nonfocal and benign but given the patient advanced age history abdominal surgeries we obtain advanced imaging. Will give symptomatic treatment, flu, Zofran. Will dispo based on labs, images, reassessment, vital sign reassessment, repeat abdominal exam and share decision making Factors affecting care: History of hypothyroidism, history of abdominal surgery Social determinants of health: Former smoker, positive caffeine intake History obtained from others: The patient's Shared decision making: I will have a discussion with the patient and or visitors regarding risk/benefits of further testing or admission. They will be made aware of of the risk/benefits inherent in this decision they will be given the opportunity to voice understanding. Consults: Possibly general surgery if there is any acute intra-abdominal pathology identified Discharge Plan Triage Chief Complaint: Nausea/Vomiting/Diarrhea ED Midlevel Provider: Bobby Escobedo ED Provider: Jamie Mooney Dx/Rx/DC Orders Clinical Impression: Gastroenteritis, Acute dehydration, Acute hypokalemia, Renal cyst, Diverticulum of duodenum Instructions: ED Dehydration (Adult), ED Gastritis (Adult), ED Hypokalemia Prescriptions: New dicyclomine 20 mg tablet 20 mg PO BID Qty: 20 0RF ondansetron 4 mg tablet,disintegrating 4 mg PO Q8H PRN PRN (Reason: Nausea) Qty: 10 0RF No Action verapamil 180 mg capsule,ext rel. pellets 24 hr 180 mg PO QDAY omega-3 fatty acids [Fish Oil Concentrate] 1,000 mg capsule 1,000 mg PO QDAY Label Comments: stopped for procedure calcium carbonate-vitamin D3 [Calcium 600 with Vitamin D3] 600 mg(1,500mg) -400 unit tablet,chewable 1 tab PO QDAY hydrochlorothiazide 25 mg tablet 25 mg PO QAM solifenacin [Vesicare] 5 mg tablet 5 mg PO DAILY clobetasol 0.05 % ointment 1 applic topical .COMPLEX Qty: 15 2RF Rx Instructions: 1 applic topical apply bid X 2 weeks, daily X 2 weeks then prn. Small amount and massge in; azithromycin 250 mg tablet See Rx Instructions PO .COMPLEX Qty: 6 0RF Rx Instructions: For 250 mg dose pack: take 500 mg today (day 1), then 250 mg for 4 days (days 2-5) PO fluticasone propionate [Flovent HFA] 220 mcg/actuation HFA aerosol inhaler 2 puff inhalation BID Qty: 12 6RF ipratropium bromide 21 mcg (0.03 %) spray,non-aerosol 2 spray intranasal BID-TID PRN (Reason: cough) Qty: 30 2RF Rx Instructions: administer 1 spray into each nostril prednisone 20 mg tablet 40 mg PO DAILY Qty: 14 0RF levothyroxine 25 MCG tablet 50 mcg PO DAILY omeprazole 40 mg capsule,delayed release(DR/EC) 40 mg PO BID Qty: 60 2RF Primary Care Provider: Nikky Tabor Referrals: Nikky Tabor DO [Primary Care Provider] - Friend,DO Omar [Med Staff - Active Staff] - Activity Restrictions/Additional Instructions: Please advance her diet as tolerated. Please return for any worsening symptoms. You had some left renal cysts that were actually found on your CAT scan. You had no significant acute pathology. Please maintain hydration and follow-up with your PCP Disposition Disposition: Home, Self Care Discharge Date/Time: 12/19/22 19:06 What to do if you have Problems For any increased pain, shortness of breath, bleeding, nausea or vomiting, chest pain, or any unexpected problems, contact your Primary Care Provider. Call [facility] ([phone]) or report to the closest Emergency Room. Call 911 if necessary. 12/19/222199 <Electronically signed by Bobby JHAVERI> Cosigner Signature (if applicable): 12/19/222208 <Electronically signed by Jamie Mooney DO> CC: Dr. Nikky Tabor DO Signed Nikky Tabor DO Work Phone: Start: 10-23-2022 Plain chest X-ray Dr. Nikky Tabor Work Phone: Start: 10-23-2022 End: 10-24-2022 Procedure Note: See Note; NOTES: [facility] Imaging Services [address] [place] [id number] Chest PA and Lateral MR#: [id number] Acct: [id number] Name: JAKY SPENCER Rep #: [id number] : 1950 F 71 From: Harjeet Mcfarlane PCP: Dr. Nikky Tabor DO Status: REG CLI Study: Chest PA and Lateral Date of Exam: 10/23/22 Exam# [id number] Ordering Dr: Scott Tran MD INDICATION: Cough. EXAMINATION/TECHNIQUE: X-RAY - XR Chest 2 Views COMPARISON: 04/24/2013. FINDINGS: LINES/DEVICES: None. LUNGS: No consolidation, edema or effusion. No pneumothorax. MEDIASTINUM AND CARDIOVASCULAR STRUCTURES: Borderline cardiac silhouette. Tortuosity of the thoracic aorta. BONES AND SOFT TISSUES: No demonstrated acute osseous changes. Mild levoscoliosis could be positional. Surgical clips in the left axilla. RAD/Chest PA and Lateral IMPRESSION: No radiographic evidence of acute cardiopulmonary disease. Electronically Signed: Harjeet Cade MD at 11:40 EST , CC: Dr. Nikky Tabor DO; Dr. Scott Tran MD Manager It Training: Signed Nikkydontae Tabor Work Phone: Start: 10-22-2022 End: 11-12-2022 Procedure Note: See Note; NOTES: [facility] [address] [place] [address] OFFICE VISIT Date of Service: 10/22/22 MR#: [id number] Acct: [id number] Name: JAKY SPENCER Rep #: [id number] : 1950 Provider: Dr. Scott sinha MD Age/Sex: 71/F [place] [facility] [place] [facility] [place] Status: Signed Assessment and Plan Assessment and Plan (1) Chronic cough: Status: Chronic Comment: Impression: 1.Chronic cough, approximately 2 months duration, slightly improved after a course of prednisone but not after 2 courses of antibiotics including amoxicillin and Augmentin. Abnormal findings showed probable right middle ear effusion, which suggest postnasal drip on the and rhonchi on her bilateral posterior lower lung exam. Her chest x-ray on 08/14/2022 was normal. 2.Acid reflux on omeprazole, with some breakthrough dyspepsia 3.Possible postnasal drip/middle ear infection on the right 4.History of malignant melanoma, and the skin to the upper left of the scapula, status postresection with left axillary lymph node dissection, no evident recurrence. Plan: 1.Respiratory and COVID PCR today 2.Pertussis IgG, IgM, IgA 3.Prednisone 40 mg daily for 7 days 4.Azithromycin Z-Liliana x5 days 5.Fluticasone 200 mcg 2 puffs twice daily, patient was told to rinse mouth and was coached on inhaler technique today. 6.Increase omeprazole to 40 mg twice daily 7.Atrovent nasal spray 1 puff each nostril 3 times daily 8.Chest x-ray PA and lateral in the morning 9.Follow-up in December or sooner than that if she worsens 10.Adjust medications as needed based on results of testing. Thank you for referring this very pleasant lady to [facility]. Scott Tran MD [facility] Orders: Orders RESPIRATORY PANEL MOLECULAR Today R05.3 - Chronic cough B pertussis AB IgG, M, A Today R05.3 - Chronic cough COVID 19, PCR [facility](RT COLLECT) Today R05.3 - Chronic cough Chest PA and Lateral Today K20.0 - Eosinophilic esophagitis, K21.9 - Gastro-esophageal reflux disease without esophagitis, R05.3 - Chronic cough, Z85.820 - Personal history of malignant melanoma of skin Medications: New azithromycin For 250 mg dose pack: take 500 mg today (day 1), then 250 mg for 4 days (days 2-5) PO 6 tabs 0RF fluticasone propionate 220 mcg/actuation (Flovent HFA) 2 puffs inhalation BID 12 grams 6RF cough R05.3 - Chronic cough ipratropium bromide administer 1 spray into each nostril 2 sprays intranasal BID-TID PRN 30 mL 2RF cough prednisone 40 mg (2 x 20 mg) PO DAILY 14 tabs 0RF cough Changed From omeprazole 40 mg PO QDAY reflux To omeprazole 40 mg PO BID reflux HPI Cough Details: This pleasant 71-year-old female never smoker is referred by Dr. Nikky Tabor for evaluation of chronic cough. Current symptoms include a largely nonproductive cough since August. ???No history of hemoptysis fevers chills or sweats. ???No aspiration or coughing/choking while eating. ???Her sinuses are without pressure or drainage she has no ear infections, but when she first wakes up she hears her ears crinkling.??? She denies dyspnea previous ear surgery, pleurisy and headache.??? She denies leg edema wheezing excessive sleepiness exposure to sick contacts. Her last antibiotic was amoxicillin prescribed by Dr. Tabor in mid September, along with prednisone for 5 days.??? After initial improvement, she returned to Dr. Tabor's office late September because of return of her cough and had a course of Augmentin with no improvement in the cough. Her prior hospitalization was in approximately 2019 because of chest pain, which was worked up negative for coronary artery disease and was determined to be due to reflux.??? She has been on omeprazole 40 mg daily thereafter.??? It is resolved with occasional breakthrough.??? Her past pulmonary history is also positive for bronchitis in the yearly which always started with a cough. She was given an albuterol inhaler which she does not believe helps.??? She uses it twice a day does not have a nebulizer, and has never had a steroid inhaler. Her immunization history includes a prior COVID vaccines and a booster on September 18.??? Influenza vaccination was followed 2021, no prior pneumonia vaccine, or pertussis vaccine since childhood. Her occupational history includes being a retired [employer] in 1994, moved [place] in 1998 where she worked for a while at [employer] until retired, no respiratory exposures no cough on that job. Her past pulmonary history: she denies: Childhood severe respiratory illnesses, premature , no tuberculosis exposure, she does not recall a prior PPD.??? Never had pneumonia, cancer, influenza, COVID-19, DVT PE, CHF, heart disease, pneumothorax, rib fractures, pulmonary hypertension, or asthma. Her home is a wood frame home of approximately 12 years of age, they have hardwood floors they have a wood-burning fireplace that has not been used in 2 weeks.??? There is no visible mold.??? There is a humidifier that they keep clean.??? Heating is gas there are no pets her is a non-smoker and there is no passive smoke in the home. Past medical history family history social history, allergies, medications, reviewed for this visit in her EMR Review of systems 10 systems is noncontributory. Intake Vital Signs 10/22/22 12:54 10/22/22 12:58 Height 5 ft 2 in 5 ft 2 in Weight: 158 lb BMI 28.9 BP 132/74 H Blood Pressure Location Lt brachial Position Sitting Respiration 18 Pulse 87 Pulse Source Monitor Temp 97.5 F L Temperature Source Temporal Artery Pulse Oximetry (%) 96 Oxygen Delivery Method room air Intake Visit Reasons: Cough Chief Complaint: Annual Accompanied by: Self Is patient in pain?: No Allergies No Known Allergies Allergy (Verified 10/22/22 12:55) Medications calcium carbonate 600 mg-vitamin D3 10 mcg (400 unit) chewable tablet (Calcium 600 with Vitamin D3) 1 tab PO QDAY 11/16/17 [History Confirmed 10/22/22] omega-3 fatty acids 1,000 mg capsule (Fish Oil Concentrate) 1,000 mg PO QDAY 11/16/17 [History Confirmed 10/22/22] verapamil 180 mg 24 hr capsule,extended release 180 mg PO QDAY BP 11/16/17 [History Confirmed 10/22/22] hydrochlorothiazide 25 mg tablet 25 mg PO QAM bp 07/15/20 [History Confirmed 10/22/22] levothyroxine 25 mcg tablet 50 mcg PO DAILY thyroid 07/26/20 [History Confirmed 10/22/22] solifenacin 5 mg tablet (Vesicare) 5 mg PO DAILY 10/06/21 [History Confirmed 10/22/22] clobetasol 0.05 % topical ointment 1 applic topical .COMPLEX #15 grams 10/07/22 [Rx Confirmed 10/22/22] azithromycin 250 mg tablet See Rx Instructions PO .COMPLEX #6 tabs 10/22/22 [Rx Confirmed 10/22/22] fluticasone propionate 220 mcg/actuation HFA aerosol inhaler (Flovent HFA) 2 puff inhalation BID cough #12 grams 10/22/22 [Rx Confirmed 10/22/22] ipratropium bromide 21 mcg (0.03 %) nasal spray 2 spray intranasal BID-TID PRN cough #30 mL 10/22/22 [Rx Confirmed 10/22/22] omeprazole 40 mg capsule,delayed release 40 mg PO BID reflux 10/22/22 [History Confirmed 10/22/22] prednisone 20 mg tablet 40 mg PO DAILY cough #14 tabs 10/22/22 [Rx Confirmed 10/22/22] PFSH Medical History (Updated 10/22/22 @ 15:[address] Scott Tran MD) Chronic cough Eosinophilic esophagitis Fundic gland polyps of stomach, benign GERD (gastroesophageal reflux disease) Hemorrhoids History of malignant melanoma HTN (hypertension) Surgical History H/O section H/O esophagogastroduodenoscopy ( 11/29/17) S/P colonoscopy ( 11/29/17) S/P laparoscopic cholecystectomy Family History Mother No problems noted. Brother Bladder cancer Social History household members: spouse Smoking Status: Never smoker second hand exposure: No alcohol intake: never substance use type: does not use caffeine: Yes what type of physical activity do you participate in: walking frequency: 1-2 times per week seatbelt use: always do you feel safe at home: Yes additional social history: - [place] Exam Const Well-developed pleasant woman who is coughing nonproductively but almost constantly throughout today's visit.??? It was a dry cough, intermittent, not paroxysmal, and nonproductive. HEENT she has bilateral mild middle ear effusions with dull tympanic membrane greater on the right.??? Posterior pharynx is without thrush or erythema and her dentition is good. ???Neck is supple with no JVD thyromegaly or mass. Lungs are clear bilaterally except for some rhonchi in the mid posterior chest bilaterally which changed slightly but not did not resolve with cough did not hear consolidation or wheezing or crackles. Back exam shows a large, well healed surgical scar at the site above the lateral left scapula of her previous melanoma resection.??? No obvious recurrence. Cardiac: Occasional premature beat, rubs or gallops.??? There was a loud S1 with a late diastolic component. Abdomen is soft nontender Extremities have no clubbing cyanosis edema or rash. Skin is warm and dry Neurologic exam is grossly nonfocal. Psych: Pleasant and appropriate.??? Good insight, good historian. Supplemental Info Complete pulmonary function tests 10/15/2022 showed normal spirometry with no bronchodilator response, normal lung volumes and diffusing capacity. Chest x-ray 08/14/2022:, 2 VIEWS CLINICAL INDICATION:??? COUGH TECHNIQUE:??? Frontal and lateral views of the chest.??? This report was created using Segment report generation technology. COMPARISON:??? XR Chest dated 04/24/2013 FINDINGS: LUNGS AND PLEURAL SPACES:??? Normal.??? No consolidation or edema.??? No pneumothorax.??? No effusion. HEART:??? Normal heart size. MEDIASTINUM:??? No mediastinal or hilar mass. BONES/JOINTS:??? No acute abnormality. SOFT TISSUES:??? Left axillar surgical clips again seen. Chest PA and Lateral IMPRESSION: No acute cardiopulmonary abnormality. No interval change. Electronically Signed: Justin Mcneil MD at 12:18 EST Coding Level of Care Code Off vis,new,level 4 Diagnoses Chronic cough R05.3 Time Spent (min) 65 Comment Included EMR review, images, clinical notes, PFTs, E M, documentation. 10/22/22 1550 <Electronically signed by Scott Tran MD> Date __ Scott Tran MD Cosigner Signature: Date __ (if applicable) CC: Nikky Tabor DO Work Phone: Start: 10-15-2022 End: 10-15-2022 Procedure Note: See Note; NOTES: [facility] Pulmonary Services/Neurology [address] [place] [address] MR#: [id number] Acct: [id number] Name: JAKY SPENCER Rep #: [id number] : 1950 71 From: Clemente Frias DO Referring Dr: Nikky Tabor DO Status: REG CL I Location: [facility] Date: 10/15/22 Sex: F C INTRODUCTION: The patient is a 71-year-old female that presents for pulmonary function studies secondary to a diagnosis of cough. Respiratory therapy reported good patient effort. Bronchodilators were used during testing. INTERPRETATION: Forced expiration spirometry demonstrates no evidence of a large airways obstructive ventilatory defect. There was no significant response to aerosolized bronchodilators. Spirograms are of good quality and plateau gradually indicating slow emptying of the lungs. Body plethysmography was performed and revealed lung volumes to be within normal limits. Diffusing capacity by single breath CO was within normal limits. IMPRESSION: Grossly normal pulmonary function studies. 10/15/22 1216 <Electronically signed by Clemente Frias DO> Date __ Clemente Frias DO CC: Dr. Nikky Tabor DO Date Dictated: 10/15/221214 Date Transcribed: 02/09/23 1215 Manager It Training: ASIA Signed Nikky Sharona DO Work Phone: Start: 10-07-2022 End: 10-07-2022 Procedure Note: See Note; NOTES: [facility] 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) Chief Complaint: Annual Ingot Weigher Required: No Is patient in pain?: No Allergies No Known Allergies Allergy (Verified 10/07/22 10:56) Medications calcium carbonate 600 mg-vitamin D3 10 mcg (400 unit) chewable tablet (Calcium 600 with Vitamin D3) 1 tab PO QDAY 11/16/17 [History Confirmed 10/07/22] omega-3 fatty acids 1,000 mg capsule (Fish Oil Concentrate) 1,000 mg PO QDAY 11/16/17 [History Confirmed 10/07/22] omeprazole 40 mg capsule,delayed release 40 mg PO QDAY reflux 11/16/17 [History Confirmed 10/07/22] verapamil 180 mg 24 hr capsule,extended release 180 mg PO QDAY BP 11/16/17 [History Confirmed 10/07/22] hydrochlorothiazide 25 mg tablet 25 mg PO QAM bp 07/15/20 [History Confirmed 10/07/22] levothyroxine 25 mcg tablet 50 mcg PO DAILY thyroid 07/26/20 [History Confirmed 10/07/22] solifenacin 5 mg tablet (Vesicare) 5 mg PO DAILY 10/06/21 [History Confirmed 10/07/22] clobetasol 0.05 % topical ointment 1 applic topical .COMPLEX #15 grams 10/07/22 [Rx Confirmed 10/07/22] Is last menstrual period known: No Post menopausal: Yes Patient : No : No PFSH Medical History Eosinophilic esophagitis Fundic gland polyps of stomach, benign GERD (gastroesophageal reflux disease) Hemorrhoids History of malignant melanoma HTN (hypertension) Surgical History H/O section H/O esophagogastroduodenoscopy ( 11/29/17) S/P colonoscopy ( 11/29/17) S/P laparoscopic cholecystectomy Family History Mother No problems noted. Brother Bladder cancer Social History household members: spouse Smoking Status: Never smoker second hand exposure: No alcohol intake: never substance use type: does not use caffeine: Yes what type of physical activity do you participate in: walking frequency: 1-2 times per week seatbelt use: always do you feel safe at home: Yes additional social history: oksana Donahue History 2 Elective abortions Hx Para 2 Spontaneous abortions Hx # Term Pregnancies Ectopic pregnancies Hx # Pregnancies Multiple births # of living children 2 Past Pregnancies Del. Date Name GA/Weeks Outcome Route Bth Weight Gen Labor Lgth Anesthesia Del Locatn Provider FOB Unknown Puja 1976 Unknown Annette 1978 HPI Encounter for routine gynecological examination Details: JAKY SPENCER is a 71 year old who presents for annual exam. Denies concerns. Needs refill clobetesol. Last PAP: na History of abnormal PAP: no Last mammogram: 12/2021 History of abnormal mammogram: no Colon cancer screenin Other preventative health care screenings: Sharona Female Reproductive History Menopausal Symptoms: No hot flashes, No night sweats, No weight change, No mood changes, No difficulty concentrating, No sleep problems and No change in libido Menopausal Treatment: No HRT, No Vaginal Estrogen, No Osphena, No OTC treatments and No prescription non-hormonal treatment ROS Const Constitutional: Denies night sweats Cardio Card: Denies chest pain Resp Resp: Denies cough or dyspnea on exertion GI GI: Denies abdominal pain, bloating, change in stool character, constipation or vomiting : Denies hot flashes Psych Psych: Denies change in libido or difficulty concentrating Exam Const General: cooperative, healthy appearing, no acute distress and well developed Orientation: alert, oriented to person and oriented to place [facility] Head: normal to inspection Neck Neck: normal visual inspection Thyroid: thyroid normal Lymphatic: no lymphadenopathy noted Chest Breast inspection: normal inspection of the breasts and normal inspection of the axillae Breast palpation: normal palpation of the breasts, normal palpation of the axillae and no axillary lymphadenopathy Resp Effort Inspection: normal respiratory effort GI Palpation: soft, no masses and nontender Rectal Exam: deferred External Female Exam: normal external appearance and normal appearance of the urethra Urethra: normal appearance of the urethra and normal palpation Speculum Exam - Vagina: normal appearance of the vagina and normal vaginal discharge Speculum Exam - Cervix: normal appearance of the cervix Bimanual Exam- Vagina Uterus: normal bimanual exam, uterine size normal, uterine shape normal and non-tender Bimanual Exam- Adnexa, other: normal adnexae, no masses, normal and non-tender Pelvic Support: normal Neuro General: patient alert and patient oriented x3 Psych Affect: normal affect Coding Level of Care Code Pelvic/Breast Diagnoses Encounter for routine gynecological examination Z01.419 Gynecological examination findings: abnormal findings ABSENT Lichen sclerosus L90.0 Assessment and Plan Assessment and Plan (1) Encounter for routine gynecological examination: Qualifiers: Gynecological examination findings: abnormal findings ABSENT Qualified Code(s): Z01.419 - Encounter for gynecological examination (general) (routine) without abnormal findings (2) Lichen sclerosus: Status: Acute Comment: clobetesol Orders: Orders SCRN MAMM (CAD)W/DARREN BILAT 10/02/22 Z12.4 - Encounter for screening for malignant neoplasm of cervix Medications: Refilled clobetasol 0.05% 1 applic topical apply bid X 2 weeks, daily X 2 weeks then prn. Small amount and massge in; 15 grams 2RF Plan Completed breast and pelvic exam Reviewed diet and exercise Pap NA Mammogram ordered breast self exam encouraged monthly Refill clobetesol Colonoscopy 2019 Bone density with PCP RTO 1 year, prn with problems Anna Cho CNP 10/07/22 1140 <Electronically signed by Anna Cho SOFT BOARDER SOFT BOARDER-C> Date __ Anna Cardonatings SOFT BOARDER SOFT BOARDER-C Cosigner Signature: Date __ (if applicable) CC: Nikky Tabor DO Work Phone: Start: 09-11-2022 End: 09-11-2022 Procedure Note: See Note; NOTES: [facility] Physical Therapy [facility] [address] [place] [address] / REHABILITATION SERVICES DISCHARGE SUMMARY MR#: [id number] Acct: [id number] Name: JAKY SPENCER Rep #: [id number] : 1950 71 From: Ashley Silva MPT Referring Dr.: Dr. Nikky Tabor DO Status: REG RCR Insurance: MEDICARE PART A B ANTHEM It has been my pleasure to treat JAKY SPENCER referred by Dr. Nikky Tabor DO, with the diagnosis of Neck Pain for a total of 11 visit(s). Discharge Date: 09/11/22 Please see the following information for a summary of their discharge status. Subjective: Pt reports that she is better but not 100%. Pt is doing stretches and exercises at home. The manual stretching and heat has helped. Freq of neck pain. neck pain Pain Intensity (Out of 10): 2 % Improvement: 80 Objective/Function: Increase C-spine AROM (at time of the eval: Flex 100%, Ext 100%, SB L 50#, SB R 50%, Rot R 90% and Rot L 50%). Posture: good upright posture. Still tight on the R upper trap with MT Goal 1:: I HEP Goal Progress: Goal Met Goal 2:: Decrease freq of intense neck pain by 50% Goal Progress: Goal Met Goal 3:: Increase C-spine AROM (at time of the eval: Flex 100%, Ext 25%, SB L 50#, SB R 25%, Rot R 50% and Rot L 50%) Goal Progress: Progressing Goal 4:: Sit with upright posture during treatment sessions Goal Progress: Goal Met Plan: DC PT to HEP and I massages Discharge Comments: DC PT to HEP If there are questions or concerns regarding this patient's physical therapy, please feel free to call me at [phone]. Thank you for the referral of this patient. Sincerely, GUNNAR Hurtado Balance/Gait/Functional tests - Balance/Special Test Scores Oswestry Neck Score: 9 <Electronically signed by Ashley Silva MPT> 09/11/22 1058 CC: Dr. Nikky Tabor DO Signed Nikky Tabor DO Work Phone: Start: 08-14-2022 Plain chest X-ray Start: 08-14-2022 End: 08-14-2022 Procedure Note: See Note; NOTES: [facility] Imaging Services [address] [place] [address] Chest PA and Lateral MR#: [id number] Acct: [id number] Name: JAKY SPENCER Rep #: [id number] : 1950 F 71 From: Justin Mcneil MD PCP: Dr. Nikky Tabor DO Status: REG CLI Study: Chest PA and Lateral Date of Exam: 08/14/22 Exam# [id number] Ordering Dr: Nikky Tabor DO EXAM: XR CHEST, 2 VIEWS CLINICAL INDICATION: COUGH TECHNIQUE: Frontal and lateral views of the chest. This report was created using Segment report generation technology. COMPARISON: XR Chest dated 04/24/2013 FINDINGS: LUNGS AND PLEURAL SPACES: Normal. No consolidation or edema. No pneumothorax. No effusion. HEART: Normal heart size. MEDIASTINUM: No mediastinal or hilar mass. BONES/JOINTS: No acute abnormality. SOFT TISSUES: Left axillar surgical clips again seen. RAD/Chest PA and Lateral IMPRESSION: No acute cardiopulmonary abnormality. No interval change. Electronically Signed: Justin Mcneil MD at 12:18 EST , CC: Dr. Nikky Tabor DO Manager It Training: Signed Nikky Tabor DO Work Phone: Start: 07-21-2022 End: 07-21-2022 Procedure Note: See Note; NOTES: [facility] Physical Therapy [facility] [place] [address] / REHABILITATION SERVICES INITIAL EVALUATION MR#: [id number] Acct: [id number] Name: JAKY SPENCER Rep #: [id number] : 1950 71 From: Ashley MAHER Referring Dr.: Dr. Nikky Tabor DO Status: REG RCR Insurance: MEDICARE PART A B ANTHEM Patient's Visit Information JAKY SPENCER is a 71 year old F referred to Physical Therapy by Dr. Nikky Tabor DO with a diagnosis of Neck Pain. Date of Evaluation: 07/21/22 Physical Therapist: GUNNAR Hurtado - Visit Plan Frequency: 2x /Week Duration: 3 Weeks Plan: Add chin tucks next visit for upper stretching. 2X/ week for 3 weeks for mid, upper and lower trap stretches, scalenes, and levator (manual and self stretches) postural and scapular exercises, some MT to the c-spine with light distraction and suboccip release. HEP: upper trap stretch holding bottom of the chair and Levator scapulae - Subjective Pt has had neck pain for years, She has always had back and neck issues and chiropractors have helped. Her pain in her neck really does not go away at all any more. Some days are worse than others. Her mobility has changed. Sometimes it is very painful and other times it is just baseline there. thought to do PT. She did an x-ray and showed DDD in spine. She said the pain is always on the Right side but does get some on the L side as well. It does not cause any numbness in her arms. She has a massage chair at home and hand held massager at home. She sleeps at night. She can get 7 hours in most of the time. She has no weakness in her hands. Pt gets BERNAL 1-2 a week. In nice weather she [place], reads (tries not to look down too much), walk, cleans the house. - Pain neck pain Pain Intensity (Out of 10): 4 - Objective C-spine AROM: Flex 100%, Ext 25%, SB L 50#, SB R 25%, Rot R 50% and Rot L 50%. R handed: R hand data services developer strength 45#. L hand data services developer strength 55#. UE MMT: R shoulder flex 6.5#, R shoulder ABD 9.6#, ER 11#. L shoulder flex 7.0#, R shoulder ABD 9.6#, ER 8.3#. Bicep Reflex: 2+/3 B. Palpation: tender upper and mid trap and levator B. Horatio better with light distraction and manual supine neck stretches - Balance/Special Test Scores Oswestry Neck Score: 16 - Goals Goal 1:: I HEP Goal Time Frame: 4-6 Weeks Goal 2:: Decrease freq of intense neck pain by 50% Goal Time Frame: 4-6 Weeks Goal 3:: Increase C-spine AROM (at time of the eval: Flex 100%, Ext 25%, SB L 50#, SB R 25%, Rot R 50% and Rot L 50%) Goal Time Frame: 4-6 Weeks Goal 4:: Sit with upright posture during treatment sessions Goal Time Frame: 4-6 Weeks - Rehabilitation Potential Rehabilitation Potential: Good - Anticipated Interventions Patient/Client Instruction: Educate patient on: Condition, Plan of Care For the Purpose of:: To decrease pain, To increase ROM, To improve nutrient delivery to tissue, To improve muscle performance and motor function, To improve ability to perform ADL's, To increase tolerance to activity/condition/position, To improve performance and independence with ADL's, To decrease level of supervision to perform tasks, To improve health of tissue, To decrease soft tissue restriction, To increase flexibility/ROM Therapeutic Exercise to Include: Strength training, Postural training, Flexibilty training, Neuromotor development, Passive ROM, Active ROM, Scapular Strength/Stabilization For the Purpose of:: To decrease pain, To increase ROM, To improve nutrient delivery to tissue, To improve muscle performance and motor function, To improve ability to perform ADL's, To increase tolerance to activity/condition/position, To improve performance and independence with ADL's, To decrease level of supervision to perform tasks, To improve health of tissue, To decrease soft tissue restriction, To increase flexibility/ROM Manual Therapy Techniques to Include: Mobilization, Passive ROM, Soft tissue mobilization For the Purpose of:: To decrease pain, To increase ROM, To improve nutrient delivery to tissue, To improve muscle performance and motor function, To improve ability to perform ADL's, To improve health of tissue, To decrease soft tissue restriction, To increase flexibility/ROM Thermo therapy (hot pack): Yes Ultrasound (thermal/non thermal): Yes For the Purpose of:: To decrease pain, To decrease swelling/inflammation, To increase ROM, To improve nutrient delivery to tissue Thank you for the opportunity to evaluate your patient. For Medicare and Medicare HMO plans, please review the plan of care and approve it. It will need to be FAXED BACK to us at [phone] for Medicare purposes. For Medicare only, by signing this I certify the plan of care. Please let me know if there are questions or concerns regarding this plan of care. Physician Signature: Date:__ <Electronically signed by Ashley Silva MPT> 07/21/22 1244 CC: Dr. Nikky Tabor DO Signed Nikky Tabor DO Work Phone: Start: 07-06-2022 X-ray of cervical spine Start: 07-06-2022 End: 07-06-2022 Procedure Note: See Note; NOTES: [facility] Imaging Services [address] [place] [address] Cerv Spine 2 or 3 Views MR#: [id number] Acct: [id number] Name: JAKY SPENCER Rep #: [id number] : 1950 F 71 From: Clay Velasquez DO PCP: Dr. Nikky Tabor DO Status: REG CLI Study: Cerv Spine 2 or 3 Views Date of Exam: 07/06/22 Exam# [id number] Ordering Dr: Nikky Tabor DO INDICATION: Neck pain radiating down the right side of the neck for greater than one year. EXAMINATION/TECHNIQUE: X-RAY - XR Spine Cervical 2 or 3 Views COMPARISON: None. FINDINGS: VERTEBRAE: Preserved vertebral body height. No fracture. There is mild retrolisthesis of C5 on C6. Preservation of the normal cervical lordosis. 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 DISCS: Disc space narrowing and endplate spondylosis most marked at C5-6. NECK SOFT TISSUES: No prevertebral soft tissue widening. LUNG APICES: Clear. RAD/Cerv Spine 2 or 3 Views IMPRESSION: Degenerative changes of the cervical spine, most marked at C5-6, without acute fracture or subluxation.. Electronically Signed: Clay Velasquez DO at 20:38 EDT Reading Location ID and State: [address] [place] [address] Tel [phone], Service support , CC: Dr. Nikky Tabor DO Manager It Training: Signed Nikky Tabor DO Work Phone: Start: 12-25-[address] Nikky Tabor Work Phone: Start: 12-25-2021 End: 12-25-2021 Comments: See Note; NOTES: [facility] Imaging Services [address] [place] [address] SCRN MAMM (CAD)W/DARREN BILAT MR#: [id number] Acct: [id number] Name: JAKY SPENCER Rep #: [id number] : 1950 F 71 From: Aleksandar Blank MD PCP: Dr. Nikky Tabor DO Status: REG CLI Study: SCRN MAMM (CAD)W/DARREN BILAT Date of Exam: 12/06 09/27 Exam# [id number] Ordering Dr: Anna Cho NP, NP MAMMOGRAPHY - BILATERAL SCREENING 3-D TOMOSYNTHESIS REASON FOR EXAM: Female, 71 years old. screening for breast cancer PERTINENT HISTORY: No significant family history. TECHNIQUE: 2-D mammograms and 3-D Tomosynthesis of the breast (s) were performed. CAD was performed. COMPARISON: 12/24/2020 FINDINGS: The breast composition is Extermely dense tissue. Scattered benign calcifications are seen. No dense spiculated masses or suspicious microcalcifications are identified. No architectural distortion is identified. There is no skin thickening or retraction. There has been no significant change since the prior study. BI/SCRN MAMM (CAD)W/DARREN BILAT IMPRESSION: No mammographic signs of malignancy. Routine yearly mammograms recommended. ASSESSMENT CATEGORY: BIRADS Category 1: Negative. A letter regarding these results will be sent to the patient by the facility within 30 days. FOLLOW UP RECOMMENDATION: Yearly follow up mammogram recommended. (A) Approximately 10% of breast cancers are not detected by mammography. A normal mammogram should not delay biopsy of a clinically suspicious abnormality. Electronically Signed: Aleksandar Blank MD at 12:02 EDT , CC: SHAKILA Cho; Dr. Nikky Tabor DO Manager It Training: Signed Nikky Tabor DO Work Phone: Start: 10-06-2021 End: 10-06-2021 Comments: See Note; NOTES: [facility] [address] [place] [address]. 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) Allergies No Known Allergies Allergy (Verified 10/06/21 10:09) Medications calcium carbonate 600 mg-vitamin D3 10 mcg (400 unit) chewable tablet 1 tab PO QDAY ea 11/16/17 [History Confirmed 10/06/21] omega-3 fatty acids 1,000 mg capsule 1,000 mg PO QDAY 11/16/17 [History Confirmed 10/06/21] omeprazole 40 mg capsule,delayed release 40 mg PO QDAY 11/16/17 [History Confirmed 10/06/21] verapamil 180 mg 24 hr capsule,extended release 180 mg PO QDAY 11/16/17 [History Confirmed 10/06/21] hydrochlorothiazide 25 mg tablet 25 mg PO QAM 07/15/20 [History Confirmed 10/06/21] levothyroxine 50 mcg PO DAILY 07/26/20 [History Confirmed 10/06/21] clobetasol 0.05 % topical ointment 1 applic TOPICAL .COMPLEX #15 g 10/06/21 [Rx Confirmed 10/06/21] solifenacin 5 mg tablet 5 mg PO DAILY 10/06/21 [History Confirmed 10/06/21] Post menopausal: Yes PFSH Medical History (Updated 10/06/21 @ 10:34 by Anna Cho NP, SOFT BOARDER-C) Eosinophilic esophagitis Fundic gland polyps of stomach, benign GERD (gastroesophageal reflux disease) Hemorrhoids History of malignant melanoma HTN (hypertension) Surgical History (Updated 10/06/21 @ 07:17 by Anna Cho NP, SOFT BOARDER-C) H/O section H/O esophagogastroduodenoscopy ( 11/29/17) S/P colonoscopy ( 11/29/17) S/P laparoscopic cholecystectomy Family History Mother No problems noted. Brother Bladder cancer Social History (Updated 10/06/21 @ 10:11 by Katty Whitney) household members: spouse Smoking Status: Never smoker second hand exposure: No alcohol intake: never substance use type: does not use caffeine: Yes what type of physical activity do you participate in: walking frequency: 1-2 times per week seatbelt use: always do you feel safe at home: Yes additional social history: - Godfrey Pregancy History 2 Elective abortions Hx Para 2 Spontaneous abortions Hx # Term Pregnancies Ectopic pregnancies Hx # Pregnancies Multiple births # of living children 2 Past Pregnancies Del. Date Name GA/Weeks Outcome Route Bth Weight Infant Gen Labor Lgth Anesthesia Del Locatn Provider FOB Unknown Puja 1976 Unknown Annette 1978 HPI Encounter for routine gynecological examination: Details: JAKY SPENCER is a 70 year old who presents for new patient annual exam. Denies concerns. Postmenopausal 20 yr. No HRT use. Still sexually active, using lubricant with benefit. Last PAP: 2014 History of abnormal PAP: no Last mammogram: 12/2020 History of abnormal mammogram: no Colon cancer screenin Other preventative health care screenings: Sharona Details: JAKY SPENCER is a 70 year old who presents for annual exam. Last PAP: [] History of abnormal PAP: [] Last mammogram: [] History of abnormal mammogram: [] Colon cancer screening: [] Other preventative health care screenings: [] Female Reproductive History Questions: metorrhagia: No, sexually active: Yes, dyspareunia: No and PCB: No Menopausal Symptoms: No hot flashes, No night sweats, No weight change, No mood changes, No difficulty concentrating, No sleep problems and No change in libido Menopausal Treatment: No HRT, No Vaginal Estrogen, No Osphena, No OTC treatments and No prescription non-hormonal treatment ROS Const Constitutional: Denies night sweats Cardio Card: Denies chest pain Resp Resp: Denies cough or dyspnea on exertion GI GI: Denies abdominal pain, bloating, change in stool character, constipation or vomiting : Reports as per HPI; Denies hot flashes Psych Psych: Denies change in libido or difficulty concentrating Exam Const General: cooperative, healthy appearing, no acute distress and well developed Orientation: alert, oriented to person and oriented to place HENNV Head: normal to inspection Neck Neck: normal visual inspection Thyroid: thyroid normal Lymphatic: no lymphadenopathy noted Chest Breast inspection: normal inspection of the breasts and normal inspection of the axillae Breast palpation: normal palpation of the breasts, normal palpation of the axillae and no axillary lymphadenopathy Resp Effort Inspection: normal respiratory effort GI Palpation: soft, no masses and nontender Rectal Exam: deferred External Female Exam: normal appearance of the urethra and other (silver whitening clitoral reinoso inner right labia, post introitus) Urethra: normal appearance of the urethra and normal palpation Speculum Exam - Vagina: normal vaginal discharge and vagina atrophic Speculum Exam - Cervix: normal appearance of the cervix Bimanual Exam- Vagina Uterus: normal bimanual exam, uterine size normal, uterine shape normal and non-tender Bimanual Exam- Adnexa, other: normal adnexae, no masses, normal and non-tender Pelvic Support: normal Neuro General: patient alert and patient oriented x3 Psych Affect: normal affect Coding Level of Care Code Pelvic/Breast Diagnoses Encounter for routine gynecological examination Z01.419 Lichen sclerosus L90.0 Assessment and Plan Assessment and Plan (1) Encounter for routine gynecological examination: (2) Lichen sclerosus: Status: Acute Comment: clobetesol Plan - Anna Cho NP, SOFT BOARDER-C: Completed breast and pelvic exam Reviewed diet and exercise Rx clobetesol Pap na Mammogram ordered breast self exam encouraged monthly Colonoscopy 2019 Bone density 2020 with PCP RTO 1 year, prn with problems Anna Cho MARKETING SUPPORT SPECIALIST Plan Details Other Medications: New: clobetasol 0.05% 1 applic topical apply bid X 2 weeks, daily X 2 weeks then prn. Small amount and massge in; 15 grams 2RF Other Orders: Orders: SCRN MAMM (CAD)W/DARREN LOYD Today 10/06/21 1036 <Electronically signed by Anna Cho NP SOFT BOARDER-C> Date __ Anna Cho NP SOFT BOARDER-C Cosigner Signature: Date __ (if applicable) CC: Nikky Tabor DO Work Phone: Start: 12-24-2020 End: 12-24-2020 Comments: See Note; NOTES: [facility] Imaging Services [address] [place] [address] Dexa Bone Density Study MR#: [id number] Acct: [id number] Name: JAKY SPENCER Rep #: [id number] : 1950 F 70 From: Sergio toro MD PCP: Dr. Nikky Tabor DO Status: REG CLI Study: Dexa Bone Density Study Date of Exam: 12/24/20 Exam# [id number] Ordering Dr: Nikky Tabor DO STUDY: DUAL ENERGY X-RAY ABSORPTIOMETRY / DXA REASON FOR EXAM: Female, 70 years old. M85.89 -- OSTEOPENIA TECHNIQUE: Bone Mineral Density (BMD) measurements of lumbar spine and bilateral hips were obtained. COMPARISON: Comparison is made with prior study dated 05/24/2018. __ FINDINGS: Lumbar Spine (L1-L4): g/cm2 (1.097) / T-score (-0.6) / Z-score (1.1) Findings are suggestive of normal bone density with a low fracture risk. Left Femur Total: g/cm2 (0.935) / T-score (-0.6) / Z-score (0.9) Left Femoral Neck: g/cm2 (0.901) / T-score (-1.0) / Z-score (0.7) Right Femur Total: g/cm2 (1.022) / T-score (0.1) / Z-score (1.6) Right Femoral Neck: g/cm2 (0.899) / T-score (-1.0) / Z-score (0.7) The T-Scores on the most recent prior examination were: Lumbar Spine (L1-L4): There has been improvement of bone density since the previous examination. Left Femur Total: which represents a worsening of 0.1%. Right Femur Total: which represents an improvement of 4.9%. __ BD/Dexa Bone Density Study IMPRESSION: The patient is considered normal as outlined below according to World Carroll Organization (WHO) criteria with a low fracture risk. There has been improvement of bone density since the previous examination. __ Reference Information: The T-score is the number [...] 1. NIH Osteoporosis and Related Bone Diseases www osteo.org 2. International Society for Clinical Densitometry www iscd.org 3. National Osteoporosis Foundation www nof.org Electronically Signed: Sergio Yang MD at 14:21 EDT , Service support , CC: Dr. Nikky Tabor DO Manager It Training: Britney Tabor DO Work Phone: Start: 12-24-2020 End: 12-24-2020 Comments: See Note; NOTES: [facility] Imaging Services [address] [place] [id number] SCRN MAMM (CAD)W/DARREN BILAT MR#: [id number] Acct: [id number] Name: JAKY SPENCER Rep #: [id number] : 1950 F 70 From: Sergio toro MD PCP: Dr. Nikky Tabor DO Status: [facility] Study: SCRN MAMM (CAD)W/DARREN BILAT Date of Exam: 12/06 Exam# [id number] Ordering Dr: Nikky Tabor DO MAMMOGRAPHY - BILATERAL SCREENING REASON FOR EXAM: Female, 70 years old. Routine annual screening examination. PERTINENT HISTORY: Non-contributory. TECHNIQUE: Digital bilateral breast darren (3D mammographic acquisition) in the CC and MLO projections. 2-D mediolateral oblique (MLO) and craniocaudad (CC) views of both breasts were obtained. CAD: Full Field Digital Mammography with Computer Added Detection was performed. COMPARISON: Comparison is made with prior study dated 11/21/2019 and 11/18/2018. __ FINDINGS: Breast Composition: The breasts are heterogeneously dense, which may obscure small masses. There are no dominant masses or suspicious calcifications. Stable linear scar is once again seen in the axillary region of the left breast. No other significant abnormalities are identified. There has been no significant change since the prior study. __ BI/SCRN MAMM (CAD)W/DARREN BILAT IMPRESSION: Stable bilateral screening mammogram. Yearly follow-up mammogram recommended. (A) __ ASSESSMENT CATEGORY: BIRADS Category 2: Benign. A letter regarding these results will be sent to the patient by the facility within 30 days. Approximately 10% of breast cancers are not detected by mammography. A normal mammogram should not delay biopsy of a clinically suspicious abnormality. [id number] Electronically Signed: Sergio Yang MD at 12:37 EDT , Service support , CC: Dr. Nikky Tabor DO Manager It Training: Signed Nikky Tabor DO Work Phone: Start: 07-31-2020 End: 07-31-2020 Operative Report - CC Letter Comments: See Note; NOTES: [facility] Medical Records Department [address] [place] [address] Operative Report - CC Letter MR#: [id number] Acct: [id number] Name: JAKY SPENCER Rep #: [id number] : 1950 69 From: Madi Borges MD PCP: Dr. Nikky Tabor, DO [place] [facility] [place] Nikky Tabor [address] [facility] [place] [address] Re : Colonoscopy procedure for Jaky Spencer Dear Dr. Tabor This procedure was performed on Wednesday, July 31, 2020. My impressions and recommendations are as follows: Impressions : - Diverticulosis in the sigmoid colon and in the descending colon. No specimens collected. - The entire examined colon is normal. Biopsied. Recommendations : - Discharge patient to home. - Resume previous diet. - Continue present medications. - Await pathology results. - Repeat colonoscopy in 10 years for screening purposes. - Return to primary care physician (date not yet determined). My findings are described in the full procedure note, which is enclosed. If I can be of further assistance, please feel free to contact me at Doctor phone number(s): , Fax: [phone], Work: . Sincerely, MD Madi Manzano MD 07/31/2020 7:56:41 AM This report has been signed electronically. 07/31/20 0756 Date __ Madi Borges MD Cosign Signature: Date __ (if indicated) CC: Dr. Madi Borges MD; Dr. Nikky Tabor DO Date Dictated: 07/31/20 0723 Date Transcribed: Manager It Training: DP Signed Nikky Tabor Start: 07-31-2020 End: 07-31-2020 Colonoscopy Report Comments: See Note; NOTES: [facility] Medical Records Department [address] [place] [address] Colonoscopy Report MR#: [id number] Acct: [id number] Name: JAKY SPENCER Rep #: [id number] : 1950 69 From: Madi Borges MD PCP: Dr. Nikky Tabor, DO [place] [facility] [place] Name: Jaky Spencer Procedure Date: 07/31/2020 7:23 AM Date of : 1950 Age: 69 Procedure: Colonoscopy Indications: Clinically significant diarrhea of unexplained origin, Positive Cologuard test Providers: Madi Borges MD Referring MD: Nikky Tabor Medicines: See the Anesthesia note for documentation of the administered medications Patient Profile: This is a 69 year old female. Refer to note in patient chart for documentation of history and physical. Last Colonoscopy: 2017. Complications: No immediate complications. Procedure: Pre-Anesthesia Assessment: - Prior to the procedure, a History and Physical was performed, and patient medications and allergies were reviewed. The patient's tolerance of previous anesthesia was also reviewed. The risks and benefits of the procedure and the sedation options and risks were discussed with the patient. All questions were answered, and informed consent was obtained. Prior Anticoagulants: The patient has taken no previous anticoagulant or antiplatelet agents. ASA Grade Assessment: II - A patient with mild systemic disease. After reviewing the risks and benefits, the patient was deemed in satisfactory condition to undergo the procedure. After I obtained informed consent, the scope was passed under direct vision. Throughout the procedure, the patient's blood pressure, pulse, and oxygen saturations were monitored continuously. The colonoscope was introduced through the anus and advanced to the cecum, identified by appendiceal orifice and ileocecal valve. The colonoscopy was performed without difficulty. The patient tolerated the procedure well. The quality of the bowel preparation was good. Scope In: 7:36:43 AM Scope Withdrawal Time 0 hours 8 minutes 9 seconds Scope Out: 7:49:42 AM Total Procedure Duration Time 0 hours 12 minutes 59 seconds Findings: Multiple small and large-mouthed diverticula were found in the sigmoid colon and descending colon. No biopsies or other specimens were collected for this exam. The colon (entire examined portion) appeared normal. Biopsies for histology were taken with a cold forceps from the entire colon for evaluation of microscopic colitis. Impression: - Diverticulosis in the sigmoid colon and in the descending colon. No specimens collected. - The entire examined colon is normal. Biopsied. Recommendation: - Discharge patient to home. - Resume previous diet. - Continue present medications. - Await pathology results. - Repeat colonoscopy in 10 years for screening purposes. - Return to primary care physician (date not yet determined). Procedure Code(s): --- Professional --- 39189, Colonoscopy, flexible; with biopsy, single or multiple Diagnosis Code(s): --- Professional --- R19.7, Diarrhea, unspecified R19.5, Other fecal abnormalities K57.30, Diverticulosis of large intestine without perforation or abscess without bleeding CPT copyright 2017 [employer]. All rights reserved. The codes documented in this report are preliminary and upon marine diesel technician review may be revised to meet current compliance requirements. MD Madi Manzano MD 07/31/2020 7:56:41 AM This report has been signed electronically. Number of Addenda: 0 Note Initiated On: 07/31/2020 7:23 AM 07/31/20 0756 Date __ Madi Borges MD Cosign Signature: Date __ (if indicated) CC: Dr. Madi Borges MD; Dr. Nikky Tabor DO Date Dictated: 07/31/20722 Date Transcribed: Manager It Training: DP Signed Nikky Tabor Start: 07-31-2020 End: 07-31-2020 History and Physical Exam Comments: See Note; NOTES: [facility] Medical Records Department [address] [facility] [place] [address] History and Physical 07/31/20 0700 MR#: [id number] Acct: [id number] Name: JAKY SPENCER Rep #: [id number] : 1950 69 From: Madi Borges MD PCP: Dr. Nikky Tabor DO Status:[facility] Location: AC11-1 Intake Vital Signs 07/15/20 Height 5 ft 2 in 07/15/20 Weight: 160 lb 07/15/20 BMI 29.2 07/15/20 BP 153/91 H 07/15/20 Blood Pressure Location Rt brachial 07/15/20 Position Sitting 07/15/20 Respiration 16 07/15/20 Pulse 68 07/15/20 Pulse Source Monitor 07/15/20 Temp 97.7 F L 07/15/20 Temp Source Temporal 07/15/20 Pulse Oximetry (%) 96 07/15/20 Oxygen Delivery Method room air Intake Visit Reasons: CSCOPE/ POSITIVE COLOGUARD Chief Complaint: eosinophilic esophagitis--past due for EGD Allergies No Known Allergies Allergy (Verified 07/15/20 08:14) Medications calcium carbonate-vitamin D3 600 mg(1,500 mg)-400 unit chewable tablet 1 tab PO QDAY ea 11/16/17 [History Confirmed 07/15/20] omega-3 fatty acids 1,000 mg capsule 1,000 mg PO QDAY 11/16/17 [History Confirmed 07/15/20] omeprazole 40 mg capsule,delayed release 40 mg PO QDAY 11/16/17 [History Confirmed 07/15/20] verapamil 180 mg 24 hr capsule,extended release 180 mg PO QDAY 11/16/17 [History Confirmed 07/15/20] hydrochlorothiazide 25 mg tablet 25 mg PO QAM 07/15/20 [History Confirmed 07/15/20] PFSH Medical History Hemorrhoids (Acute) Constipation (Acute) Diarrhea (Acute) Nausea (Acute) HTN (hypertension) (Chronic) History of malignant melanoma (Acute) GERD (gastroesophageal reflux disease) (Acute) Fundic gland polyps of stomach, benign (Acute) Eosinophilic esophagitis (Acute) Colon cancer screening (Acute) Surgical History Hx of melanoma excision (Acute) H/O section (Acute) S/P laparoscopic cholecystectomy (Acute) H/O esophagogastroduodenoscopy (Acute 11/29/17) S/P colonoscopy (Acute 11/29/17) Family History Mother No problems noted. Brother Bladder cancer Social History (Updated 07/15/20 @ 08:[address] Madi Borges MD) Smoking Status: Never smoker second hand exposure: No alcohol intake: never substance use type: does not use caffeine: Yes what type of physical activity do you participate in: walking frequency: 1-2 times per week seatbelt use: always HPI HPI Surgical H P: Yes HPI: JAKY SPENCER, is a 69 F who presents to the office today for Evaluation for a positive Cologuard test. Patient had a recent Cologuard test by her primary care physician which came back positive. She has noted that she has had alternating constipation and diarrhea-like symptoms. She has not been having any abdominal pain she has not noticed any blood loss per rectum. Exam Const General: no acute distress, well developed, well hydrated Orientation: oriented to person, oriented to place, oriented to time HENMT Head: normocephalic, atraumatic Ears: external ears normal Mouth: moist mucous membranes Eyes Sclera: sclerae normal Pupils: normal by confrontation Neck Neck: no lymphadenopathy noted Neck mass: No Thyroid: thyroid normal, symmetrical Chest Chest palpation inspection: normal inspection of the chest Resp Effort Inspection: normal respiratory effort Auscultation: clear to auscultation bilaterally Percussion: percussion normal Cardio Rate: regular rate Rhythm: regular rhythm GI Palpation: soft, no hepatosplenomegaly, no masses, nontender Rectal Exam: other Other: Rectal exam deferred. Extrem General: normal to inspection, no clubbing, cyanosis or edema Assessment Plan Problems 1. Positive colorectal cancer screening using Cologuard test R19.5 Plan I have discussed the above with the patient. I have offered the patient colonoscopy for evaluation. I have explained the risks/benefits [...] given instructions for the colon cleansing preparation. We will be doing random colon biopsies. Coding Level of Care Code Off vis,est,level 3 Diagnoses Positive colorectal cancer screening using Cologuard test R19.5 COVID (Procedure Consent) Procedure Criteria Procedure Criteria: Yes Elective The surgeon/proceduralist and patient have discussed in detail the risk of exposure to and/or potential harm posed by the COVID-19 virus with having a surgery/procedure at this time versus the risk of??? delaying the surgery/procedure. It is not possible to know either the risk of delaying the surgery or procedure or chance of getting an infection with perfect accuracy, but a joint decision was made between the patient and the surgeon/proceduralist ???to proceed at this time with the scheduled surgery/procedure as indicated on the consent form. I have re-examined the patient. There are no clinical changes since date of exam. 07/31/20728 <Electronically signed by Madi Borges MD> Date: Time: __ Madi Borges MD CC: Dr. Madi Borges MD; Dr. Nikky Tabor, DO Date Dictated: 07/31/20 0700 Date Transcribed: 07/16/20942 Manager It Training: Signed Nikky Tabor Start: 07-15-2020 End: 07-15-2020 Surgery Visit Report Comments: See Note; NOTES: [facility] [address] [place] [address] [address] [place] [address] OFFICE VISIT Date of Service: 07/15/20 MR#: [id number] Acct: [id number] Name: JAKY SPENCER Rep #: [id number] : 1950 Provider: Dr. Madi rodriguez MD Age/Sex: 69/F Location: [facility] Status: Signed Intake Vital Signs 07/15/20 Height 5 ft 2 in 07/15/20 Weight: 160 lb 07/15/20 BMI 29.2 07/15/20 BP 153/91 H 07/15/20 Blood Pressure Location Rt brachial 07/15/20 Position Sitting 07/15/20 Respiration 16 07/15/20 Pulse 68 07/15/20 Pulse Source Monitor 07/15/20 Temp 97.7 F L 07/15/20 Temp Source Temporal 07/15/20 Pulse Oximetry (%) 96 07/15/20 Oxygen Delivery Method room air Intake Visit Reasons: CSCOPE/ POSITIVE COLOGUARD Chief Complaint: eosinophilic esophagitis--past due for EGD Allergies No Known Allergies Allergy (Verified 07/15/20 08:14) Medications calcium carbonate-vitamin D3 600 mg(1,500 mg)-400 unit chewable tablet 1 tab PO QDAY ea 11/16/17 [History Confirmed 07/15/20] omega-3 fatty acids 1,000 mg capsule 1,000 mg PO QDAY 11/16/17 [History Confirmed 07/15/20] omeprazole 40 mg capsule,delayed release 40 mg PO QDAY 11/16/17 [History Confirmed 07/15/20] verapamil 180 mg 24 hr capsule,extended release 180 mg PO QDAY 11/16/17 [History Confirmed 07/15/20] hydrochlorothiazide 25 mg tablet 25 mg PO QAM 07/15/20 [History Confirmed 07/15/20] PFSH Medical History Hemorrhoids (Acute) Constipation (Acute) Diarrhea (Acute) Nausea (Acute) HTN (hypertension) (Chronic) History of malignant melanoma (Acute) GERD (gastroesophageal reflux disease) (Acute) Fundic gland polyps of stomach, benign (Acute) Eosinophilic esophagitis (Acute) Colon cancer screening (Acute) Surgical History Hx of melanoma excision (Acute) H/O section (Acute) S/P laparoscopic cholecystectomy (Acute) H/O esophagogastroduodenoscopy (Acute 11/29/17) S/P colonoscopy (Acute 11/29/17) Family History Mother No problems noted. Brother Bladder cancer Social History (Updated 07/15/20 @ 08:[address] Madi Borges MD) Smoking Status: Never smoker second hand exposure: No alcohol intake: never substance use type: does not use caffeine: Yes what type of physical activity do you participate in: walking frequency: 1-2 times per week seatbelt use: always HPI HPI HPI: JAKY SPENCER is a 69 F who presents to the office today for HPI HPI Surgical H P: Yes HPI: JAKY SPENCER is a 69 F who presents to the office today for Evaluation for a positive Cologuard test. Patient had a recent Cologuard test by her primary care physician which came back positive. She has noted that she has had alternating constipation and diarrhea-like symptoms. She has not been having any abdominal pain she has not noticed any blood loss per rectum. Exam Const General: no acute distress, well developed, well hydrated Orientation: oriented to person, oriented to place, oriented to time HENNV Head: normocephalic, atraumatic Ears: external ears normal Mouth: moist mucous membranes Eyes Sclera: sclerae normal Pupils: normal by confrontation Neck Neck: no lymphadenopathy noted Neck mass: No Thyroid: thyroid normal, symmetrical Chest Chest palpation inspection: normal inspection of the chest Resp Effort Inspection: normal respiratory effort Auscultation: clear to auscultation bilaterally Percussion: percussion normal Cardio Rate: regular rate Rhythm: regular rhythm GI Palpation: soft, no hepatosplenomegaly, no masses, nontender Rectal Exam: other Other: Rectal exam deferred. Extrem General: normal to inspection, no clubbing, cyanosis or edema Assessment Plan Problems 1. Positive colorectal cancer screening using Cologuard test R19.5 Plan I have discussed the above with the patient. I have offered the patient colonoscopy for evaluation. I have explained the risks/benefits [...] given instructions for the colon cleansing preparation. We will be doing random colon biopsies. Coding Level of Care Code Off vis,est,level 3 Diagnoses Positive colorectal cancer screening using Cologuard test R19.5 COVID (Procedure Consent) Procedure Criteria Procedure Criteria: Yes Elective The surgeon/proceduralist and patient have discussed in detail the risk of exposure to and/or potential harm posed by the COVID-19 virus with having a surgery/procedure at this time versus the risk of??? delaying the surgery/procedure. It is not possible to know either the risk of delaying the surgery or procedure or chance of getting an infection with perfect accuracy, but a joint decision was made between the patient and the surgeon/proceduralist ???to proceed at this time with the scheduled surgery/procedure as indicated on the consent form. 07/15/20 0816 <Electronically signed by Madi Borges MD> Date __ Madi Borges MD Cosign Signature: Date __ (if applicable) CC: DO Nikky Rivera Start: 11-21-2019 End: 11-21-2019 SCREEN MAMM (CAD) W/DARREN BILAT Comments: See Note; NOTES: [facility] Imaging Services [address] [place] [address] SCREEN MAMM (CAD) W/DARREN BILAT MR#: [id number] Acct: [id number] Name: JAKY SPENCER Rep #: [id number] : 1950 F 68 From: Sergio Yang MD PCP: Nikky Tabor DO Status: [facility] Study: SCREEN MAMM (CAD) W/DARREN BILAT Date of Exam: 11/21/19 Exam# [id number] Ordering Dr: Nikky Tabor DO MAMMOGRAPHY - BILATERAL SCREENING REASON FOR EXAM: Female, 68 years old. Routine annual screening examination. PERTINENT HISTORY: Non-contributory. TECHNIQUE: Digital bilateral breast darren (3D mammographic acquisition) in the CC and MLO projections. 2-D mediolateral oblique (MLO) and craniocaudad (CC) views of both breasts were obtained. CAD: Full Field Digital Mammography with Computer Added Detection was performed. COMPARISON: Comparison is made with prior examination dated November 18, 2018 and November 12, 2017. __ FINDINGS: Breast Composition: The breasts are heterogeneously dense, which may obscure small masses. There are no dominant masses or suspicious calcifications. Stable linear scar is seen in the axillary region of the left breast in keeping with the patient''s history of prior left axillary node removal. No other significant abnormalities are identified. There has been no significant change since the prior study. __ BI/SCREEN MAMM (CAD) W/DARREN BILAT IMPRESSION: Stable bilateral screening mammogram. Yearly follow-up mammogram recommended. (A) __ ASSESSMENT CATEGORY: BIRADS Category 2: Benign. A letter regarding these results will be sent to the patient by the facility within 30 days. Approximately 10% of breast cancers are not detected by mammography. A normal mammogram should not delay biopsy of a clinically suspicious abnormality. [id number] Electronically Signed: Sergio Yang, at 14:32 EDT , Service support , CC: Nikky Tabor DO Manager It Training: Signed Nikky Tabor Work Phone: Start: 05-25-2019 End: 05-25-2019 Stress Report Comments: See Note; NOTES: [facility] Cardiovascular Services [address] [place] [address] MR#: [id number] Acct: [id number] Name: JAKY SPENCER Rep #: [id number] : 1950 68 From: Griselda Arriaga MD Primary Care: Nikky Tabor DO Status: REG CLI Referring Dr: Nikky Tabor DO Sex: F C Stress Test Report Date: [May 25, 2019] Procedure: Exercise tolerance test/imaging study Indications: Abnormal EKG Consent: Per the patient Procedure: The patient exercised on a Tanner protocol for 2 minutes and 30 seconds achieving a peak heart rate of 141 bpm (93 % predicted maximal heart rate) with a peak blood pressure 190/80 mmHg and a peak MET capacity of 7.7 METs. The baseline ECG demonstrated normal sinus rhythm, poor R wave progression in the anterior leads. The peak exercise ECG demonstrated about [address] depressions in the inferior and lateral leads. No definite ischemic changes. EKG during recovery revealed no significant ischemic changes [There were no cardiac dysrhythmias pretest, during exercise, or recovery]. The functional capacity was considered average for age. There was [no complaint of chest discomfort during exercise or recovery]. The examination was discontinued secondary to dyspnea. Impression: 1. Technically adequate (percent predicted maximal heart rate greater than 85%) exercise tolerance test 2. Stress test is negative for exercise-induced EKG changes of ischemia 3. The test test is negative for exercise-induced chest pain 4. Functional capacity is average for age 5. Nuclear images pending Myocardial perfusion imaging study: Technique: The patient was injected with 11.7 mCi of technetium 99m Cardiolite and subsequently rest SPECT Cardiolite nuclear imaging was obtained in the horizontal long, vertical long, and short axis views. The patient exercised on a Tanner protocol. Please see above for details. The patient was injected with 33.9 mCi of technetium 99m Cardiolite and subsequently stress SPECT Cardiolite nuclear imaging was obtained in the horizontal long, vertical long, and short axis views. A gated Cardiolite study at peak stress was obtained. Interpretation: Rest and stress SPECT Cardiolite nuclear imaging status post realignment, normalization, and attenuation correction, demonstrates [normal myocardial radioisotope uptake]. The gated Cardiolite study demonstrates no significant regional wall motion abnormalities. The reported LVEF is 72 %. Impression: 1. There is no evidence of significant ischemia or infarction. 2. The gated Cardiolite study reports an LVEF of 72 %. This note was generated with Disrupt6 software. It may contain incorrect words, spelling, and punctuation that were not noted in checking the note before signing. 05/25/19 0917 <Electronically signed by Griselda Arriaga MD> Date __ Griselda Arriaga MD CC: Nikky Tabor DO Date Dictated: 05/25/19901 Date Transcribed: 05/25/19901 Manager It Training: NN Signed Nikkydontae Tabor Start: 11-18-2018 End: 11-18-2018 SCREENING MAMM (CAD), BILAT Comments: See Note; NOTES: [facility] Imaging Services [address] [place] [address] SCREENING MAMM (CAD), BILAT MR#: [id number] Acct: [id number] Name: JAKY SPENCER Rep #: [id number] : 1950 F 67 From: Sergio Yang MD PCP: Nikky Tabor DO Status: REG CLI Study: SCREENING MAMM (CAD), BILAT Date of Exam: 11/18/18 Exam# [id number] Ordering Dr: Nikky Tabor DO MAMMOGRAPHY - BILATERAL SCREENING REASON FOR EXAM: Female, 67 years old. Routine annual screening examination. PERTINENT HISTORY: Non-contributory. TECHNIQUE: Digital bilateral breast darren (3D mammographic acquisition) in the CC and MLO projections. 2-D mediolateral oblique (MLO) and craniocaudad (CC) views of both breasts were obtained. CAD: Full Field Digital Mammography with Computer Added Detection was performed. COMPARISON: Comparison is made with prior study dated November 12, 2017 and August 20, 2016. __ FINDINGS: Breast Composition: The breasts are heterogeneously dense, which may obscure small masses. There are no dominant masses or suspicious calcifications. Stable small right axillary lymph nodes. Surgical changes once again seen in the left axillary region in keeping with the patient's history of lymph node resection. No other significant abnormalities are identified. There has been no significant change since the prior study. __ BI/SCREENING MAMM (CAD), BILAT IMPRESSION: Stable bilateral screening mammogram. Yearly follow-up mammogram recommended. (A) __ ASSESSMENT CATEGORY: BIRADS Category 2: Benign. A letter regarding these results will be sent to the patient by the facility within 30 days. Approximately 10% of breast cancers are not detected by mammography. A normal mammogram should not delay biopsy of a clinically suspicious abnormality. [id number] Electronically Signed: Sergio Yang, at 14:12 EDT , Service support , CC: Nikky Tabor DO Manager It Training: Signed Nikky Tabor Work Phone: Start: 08-23-2018 End: 08-23-2018 Dexa Bone Density Study Comments: See Note; NOTES: [facility] Imaging Services [address] [place] [address] Dexa Bone Density Study MR#: [id number] Acct: [id number] Name: JAKY SPENCER Rep #: [id number] : 1950 F 67 From: Sergio Yang MD PCP: Nikky Tabor DO Status: REG CL Study: Dexa Bone Density Study Date of Exam: 08/23/18 Exam# [id number] Ordering Dr: Nikky Tabor DO STUDY: DUAL ENERGY X-RAY ABSORPTIOMETRY / DXA REASON FOR EXAM: Female, 67 years old. The patient is postmenopausal. No loss of height. TECHNIQUE: Bone Mineral Density (BMD) measurements of lumbar spine and bilateral hips were obtained. COMPARISON: Comparison is made with prior study dated August 20, 2016. __ FINDINGS: Lumbar Spine (L1-L4): g/cm2 (1.062) / T-score (-0.9) / Z-score (0.7) Findings are suggestive of normal bone density with a low fracture risk. Left Femur Total: g/cm2 (0.936) / T-score (-0.6) / Z-score (0.8) Left Femoral Neck: g/cm2 (0.890) / T-score (-1.1) / Z-score (0.6) Right Femur Total: g/cm2 (0.974) / T-score (-0.3) / Z-score (1.1) Right Femoral Neck: g/cm2 (0.854) / T-score (-1.3) / Z-score (0.3) The T-Scores on the most recent prior examination were: Lumbar Spine (L1-L4): There has been worsening of bone density since the previous examination. Left Femur Total: which represents a worsening of 1.2%. Right Femur Total: which represents a worsening of 1.2%. __ BD/Dexa Bone Density Study IMPRESSION: The patient is considered osteopenic as outlined below according to World Carroll Organization (WHO) criteria with a low fracture risk. There has been worsening of bone density since the previous examination. __ Reference Information: The T-score is the number [...] Sergio Yang MD at 14:18 EST Tel [phone], Service support , CC: Nikky Tabor DO Manager It Training: Signed Nikky Tabor Work Phone: Start: 12-10-2017 End: 12-10-2017 Operative Report Comments: See Note; NOTES: [facility] Medical Records Department [address] [place] [address] Operative Report 11/29/17 0905 MR#: [id number] Acct: [id number] Name: JAKY SPENCER Rep #: [id number] : 1950 66 From: Madi Borges MD PCP: Nikky Tabor DO Status: [facility] Location: [place] Problem List (1) Eosinophilic esophagitis Status: Acute (2) Colon cancer screening Status: Acute Report of Operation Date of Procedure: 11/29/17 Pre-Operative Diagnosis: k20.0 eosinophilic esophagitis. z12.11 encounter for screening colonoscopy Post-Operative Diagnosis: 4323 esophagogastroduodenoscopy with biopsy. 28211 colonoscopy Type of Anesthesia:: MAC Description of [...] Indicated 12/10/17 0940 <Electronically signed by Madi Borges MD> Date __ Madi Borges MD CC: Madi Borges MD; Nikky Tabor DO Signed Nikky Tabor Start: 12-06-2017 End: 12-06-2017 Surgery Visit Report Comments: See Note; NOTES: [facility] [address] [place] [address] [place] [address] OFFICE VISIT Date of Service: 12/06/17 MR#: [id number] Acct: [id number] Name: JAKY SPENCER Rep #: [id number] : 1950 Provider: Madi Borges MD Age/Sex: 66/F [place] [facility] [place] Status: Signed Intake Intake Visit Reasons: F/U EGD AND C-SCOPE 11/29 2017 Chief Complaint: eosinophilic esophagitis--past due for EGD Ingot Weigher Required: No Is patient in pain?: No [...] Status: Never smoker HPI HPI HPI: JAKY SPENCER, is a 66 F who presents to [...] K20.0 12/06/17 0854 <Electronically signed by Madi Borges MD> Date __ Madi Borges MD [facility] Signature: Date __ (if applicable) CC: Nikky Tabor DO Nikky Tabor Start: 11-16-2017 End: 11-16-2017 Surgery Visit Report Comments: See Note; NOTES: [facility] [address] [place] [address] OFFICE VISIT Date of Service: 11/16/17 MR#: [id number] Acct: [id number] Name: JAKY SPENCER Rep #: [id number] : 1950 Provider: Madi Borges MD Age/Sex: 66/F Location: [facility] Status: Signed Intake Vital Signs11/16/17 Height 5 ft 2.3 in 11/16/17 Weight: 150 lb 9 oz 11/16/17 Body Mass Index (BMI) 27.2 11/16/17 Blood Pressure 149/92 Intake Visit Reasons: Eosinophilic esophagitis and possible cscope Chief Complaint: eosinophilic esophagitis--past due for EGD Ingot Weigher Required: No Is patient in pain?: No [...] Status: Never smoker HPI HPI HPI: JAKY SPENCER, is a 66 F who presents to [...] to place, oriented to time [facility] Head: normocephalic, atraumatic Ears: external ears [...] Z12.11 11/16/17 1001 <Electronically signed by Madi Borges MD> Date __ Madi Borges MD Cosigner Signature: Date __ (if applicable) CC: Nikky Daniel Start: 11-12-2017 End: 11-15-2017 SCREENING MAMM (CAD), BILAT Comments: See Note; NOTES: [facility] Imaging Services [address] [place] [address] SCREENING MAMM (CAD), BILAT MR#: [id number] Acct: [id number] Name: JAKY SPENCER Rep #: [id number] : 1950 F 66 From: Sergio Yang MD PCP: Nikky Tabor DO Status: [facility] CLI Study: SCREENING MAMM (CAD), BILAT Date of Exam: 11/12/17 Exam# [id number] Ordering Dr: Nikky Tabor DO MAMMOGRAPHY - BILATERAL SCREENING REASON FOR EXAM: Female, 66 years old. Routine annual screening examination. PERTINENT HISTORY: Non-contributory. Prior left axillary node excision due to skin cancer. TECHNIQUE: Digital bilateral breast darren (3D mammographic acquisition) in the CC and MLO projections. 2-D mediolateral oblique (MLO) and craniocaudad (CC) views of both breasts were obtained. CAD: Full Field Digital Mammography with Computer Added Detection was performed. COMPARISON: Comparison is made with prior study dated August 20, 2016 and August 19, 2015. __ FINDINGS: Breast Composition: The breasts are heterogeneously dense, which may obscure small masses. There are no dominant masses or suspicious calcifications. There is deformity of the axillary region of the left breast in keeping with the history of left axillary node dissection. Of the left axillary region No other significant abnormalities are identified. __ HPBI/SCREENING MAMM (CAD), BILAT IMPRESSION: Stable bilateral screening mammogram. Yearly follow-up mammogram recommended. (A) __ ASSESSMENT CATEGORY: BIRADS Category 2: Benign. A letter regarding these results will be sent to the patient by the facility within 30 days. Approximately 10% of breast cancers are not detected by mammography. A normal mammogram should not delay biopsy of a clinically suspicious abnormality. [id number] Electronically Signed: Sergio Yang MD at 8:12 EDT Tel [phone], Service support , CC: Nikky Tabor DO Manager It Training: Signed Nikky Tabor Work Phone: Start: 08-20-2016 End: 08-20-2016 Bilat Scrn Digital AND CAD Comments: See Note; NOTES: [facility] Imaging Services [address] [place] [address] Verdana 4d Bilat Scrn Digital AND CAD MR#: [id number] Acct: [id number] Name: JAKY SPENCER Rep #: [id number] : 1950 F 65 From: Sergio Yang MD PCP: Onofre Lenz Status: REG CLI Study: Bilat Scrn Digital AND CAD Date of Exam: 08/20/16 Exam# [id number] Ordering Dr: Onofre Lenz MAMMOGRAPHY - BILATERAL SCREENING REASON FOR EXAM: Female, 65 years old. Routine annual screening examination. PERTINENT HISTORY: Non-contributory. TECHNIQUE: Digital bilateral breast darren (3D mammographic acquisition) in the CC and MLO projections. 2-D mediolateral oblique (MLO) and craniocaudad (CC) views of both breasts were obtained. CAD: Full Field Digital Mammography with Computer Added Detection was performed. COMPARISON: Comparison is made with prior study dated August 19, 2015 and August 16, 2014. __ FINDINGS: Breast Composition: The breasts are heterogeneously dense, which may obscure small masses. There are no dominant masses or suspicious calcifications. No other significant abnormalities are identified. There has been no significant change since the prior study. __ BI/Bilat Scrn Digital AND CAD IMPRESSION: Stable bilateral screening mammogram. Yearly follow-up mammogram recommended. (A) __ ASSESSMENT CATEGORY: BIRADS Category 1: Negative. A letter regarding these results will be sent to the patient by the facility within 30 days. Approximately 10% of breast cancers are not detected by mammography. A normal mammogram should not delay biopsy of a clinically suspicious abnormality. [id number] Electronically Signed: Sergio Yang MD at 11:03 EST Tel [phone], Service support [phone], CC: Onofre Lenz Manager It Training: Signed Onofre Lenz Work Phone: Start: 08-20-2016 End: 08-20-2016 Dexa Bone Density Study (HP) Comments: See Note; NOTES: [facility] Imaging Services [address] [place] [address] Verda 4d Dexa Bone Density Study (HP) MR#: [id number] Acct: [id number] Name: JAKY SPENCER Rep #: [id number] : 1950 F 65 From: Sergio Yang MD PCP: Onofre Lenz Status: REG CLI Study: Dexa Bone Density Study (HP) Date of Exam: 08/20/16 Exam# [id number] Ordering Dr: Onofre Lenz STUDY: DUAL ENERGY X-RAY ABSORPTIOMETRY / DXA REASON FOR EXAM: Female, 65 years old. The patient is postmenopausal. TECHNIQUE: Bone Mineral Density (BMD) measurements of lumbar spine and bilateral hips were obtained. COMPARISON: Comparison is made with prior study dated July 28, 2011. __ FINDINGS: Lumbar Spine (L1-L4): g/cm2 (1.087) / T-score (-0.7) / Z-score (0.9) Findings are suggestive of normal bone density with a low fracture risk. Left Femur Total: g/cm2 (0.947) / T-score (0.5) / Z-score (0.8) Left Femoral Neck: g/cm2 (0.852) / T-score (-1.3) / Z-score (0.2) Right Femur Total: g/cm2 (0.986) / T-score (-0.2) / Z-score (1.1) Right Femoral Neck: g/cm2 (0.875) / T-score (-1.2) / Z-score (0.4) The T-Scores on the most recent prior examination were: Lumbar Spine (L1-L4): There has been worsening of bone density since the previous examination. Left Femur Total: which represents a worsening of 3.5%. Right Femur Total: which represents a worsening of 2.0%. __ HPBD/Dexa Bone Density Study (HP) IMPRESSION: The patient is considered osteopenic as outlined below according to World Carroll Organization (WHO) criteria with a moderate fracture risk. There has been worsening of bone density since the previous examination. __ Reference Information: The T-score is the number [...] http://www.nof.org Electronically Signed: Sergio Yang MD at 12:46 EST Tel [phone], Service support [phone], CC: Onofre Lenz Manager It Training: Signed Onofre Lenz Work Phone: Start: 04-08-2016 End: 04-08-2016 Spmtry w/vc expiratory trey w/wo mxml vol vntj _ Onofre Lenz Work Phone: Start: 03-31-2016 End: 03-31-2016 Spmtry w/vc expiratory trey w/wo mxml vol vntj _ Onofre [employer] Work Phone: Start: 11-08-2015 End: 11-08-2015 Gallbladder Comments: See Note; NOTES: [facility] Imaging Services [address] [place] [address] Verdana 4d Gallbladder MR#: [id number] Acct: [id number] Name: JAKY SPENCER Rep #: [id number] : 1950 F 64 From: Sergio Yang MD PCP: Felisha Solorzano MD Status: REG CLI Study: Gallbladder Date of Exam: 11/08/15 Exam# [id number] Ordering Dr: Felisha Solorzano MD STUDY: ABDOMINAL ULTRASOUND - RIGHT UPPER QUADRANT REASON FOR VISIT: Female, 64 years old. 2 year history of nausea and vomiting. TECHNIQUE: Ultrasound evaluation of the right upper quadrant was performed with real-time and static rivero-scale imaging. TECHNICAL QUALITY: Adequate. COMPARISON: None. __ FINDINGS: Liver: The liver measures 15.3 cm. There is increased echogenicity consistent with fatty infiltration. The bile ducts are within normal limits. There is hepatic color flow. The direction of portal flow is hepatopetal. There is no demonstrated mass lesion. Gallbladder: Normal distended gallbladder. The gallbladder wall measures 2.9 mm. There is a positive sonographic Carter's sign. There is no pericholecystic fluid. There are multiple echogenic structures within the gallbladder, consistent with multiple gallstones. A small amount of sludge is seen within the gallbladder lumen as well. Common Bile Duct (C.B.D.): The common bile duct measures 3.5 mm. Pancreas: Normal size of the [...] 2.6 cm cyst. There is no right hydronephrosis. __ IMPRESSION: Multiple gallstones and sludge within the gallbladder lumen. Fatty infiltration of the liver. Right renal cyst . Electronically Signed: Sergio Yang MD at 9:51 EST Tel [phone], Service support [phone], CC: Felisha Solorzano MD Manager It Training: Signed Felisha Solorzano Work Phone: Start: 08-19-2015 End: 08-19-2015 Bilat Scrn Digital AND CAD Comments: See Note; NOTES: [facility] Imaging Services [address] [place] [address] Verdana 4d Bilat Scrn Digital AND CAD MR#: [id number] Acct: [id number] Name: JAKY SPENCER Rep #: [id number] : 1950 F 64 From: Sergio Yang MD PCP: Felisha Solorzano MD Status: REG CLI Study: Bilat Scrn Digital AND CAD Date of Exam: 08/19/15 Exam# [id number] Ordering Dr: Melvi Lovett MD MAMMOGRAPHY - BILATERAL SCREENING REASON FOR EXAM: Female, 64 years old. Routine annual screening examination. PERTINENT HISTORY: Non-contributory. TECHNIQUE: Digital examination. Mediolateral oblique (MLO) and craniocaudad (CC) views of both breasts were obtained. CAD: CAD was performed on this study. COMPARISON: Comparison is made with prior study dated August 16, 2014 and August 07, 2013. __ FINDINGS: Breast Composition: The breasts are heterogeneously dense, which may obscure small masses. There are no dominant masses or suspicious calcifications. No other significant abnormalities are identified. There has been no significant change since the prior study. __ IMPRESSION: Stable bilateral screening mammogram. Yearly follow-up recommended. (A) __ ASSESSMENT CATEGORY: BIRADS Category 1: Negative. A letter regarding these results will be sent to the patient by the facility within 30 days. Approximately 10% of breast cancers are not detected by mammography. A normal mammogram should not delay biopsy of a clinically suspicious abnormality. [id number] Electronically Signed: Sergio Yang MD at 11:23 EST Tel [phone], Service support [phone], CC: Felisha Solorzano MD; Melvi Lovett MD Manager It Training: Signed Catherine العلي [employer] Work Phone: Start: 10-29-2014 End: 10-30-2014 Spmtry w/vc expiratory trey w/wo mxml vol vntj _ Catherine العلي [employer] Work Phone: Comment on above: good effort and curve normal Start: 08-16-2014 End: 08-16-2014 Bilat Scrn Digital AND CAD Comments: See Note; NOTES: [facility] Imaging Services [address] [place] [address] Breast Imaging Report MR#: [id number] Acct: [id number] Name: JAKY SPENCER Rep #: [id number] : 1950 F 63 From: Sergio Yang MD PCP: Felisha Solrozano MD Status: REG CLI Study: Bilat Scrn Digital AND CAD Date of Exam: 08/16/14 Exam# [id number] Ordering Dr: Melvi Lovett MD MAMMOGRAPHY - BILATERAL SCREENING REASON FOR EXAM: Female, 63 years old. Routine annual screening examination. PERTINENT HISTORY: Non-contributory. TECHNIQUE: Digital examination. Mediolateral oblique (MLO) and craniocaudad (CC) views of both breasts were obtained. CAD: CAD was performed on this study. COMPARISON: Comparison is made with prior study dated August 07, 2013 and August 05, 2012. __ FINDINGS: Breast Composition: The breasts are heterogeneously dense, which may obscure small masses. There are no dominant masses or suspicious calcifications. No other significant abnormalities are identified. There has been no significant change since the prior study. __ IMPRESSION: Stable bilateral screening mammogram. Yearly follow-up recommended. (A) __ ASSESSMENT CATEGORY: BIRADS Category 2: Benign. A letter regarding these results will be sent to the patient by the facility within 30 days. Approximately 10% of breast cancers are not detected by mammography. A normal mammogram should not delay biopsy of a clinically suspicious abnormality. Electronically Signed: Sergio Yang MD at 8:57 EST Tel [phone], Service support [phone], CC: Felisha Solorzano MD; Melvi Lovett MD Manager It Training: Signed Catherine Zohra Noel Work Phone: axillary node dissection Kathy Rivera axillary node dissection Kathy Rivera axillary node dissection Ashley More axillary node dissection Adama Downey axillary node dissection Millie Green axillary node dissection Coral Moncada axillary node dissection Tamela Gravius axillary node dissection Kathy Rivera axillary node dissection Coral Moncada axillary node dissection Coral Moncada G[employer]OX [employer]ER section Kathy alcala Comment on above: X 2 section Kathy alcala Comment on above: X 2 section Ashley Slar b Comment on above: X 2 section Adama wick Comment on above: X 2 section Millie arthur Comment on above: X 2 section Coral barajas Comment on above: X 2 section Tamela Grav ius Comment on above: X 2 section Kathy alcala Comment on above: X 2 Colonoscopy Kathy Rivera Comment on above: 08-14-14 Colonoscopy Kathy Rivera Comment on above: 08-14-14 Colonoscopy Ashley Slarb Comment on above: 08-14-14 Colonoscopy Adama Downey Comment on above: 08-14-14 Colonoscopy Milliebaudilio Green Comment on above: 08-14-14 Colonoscopy Coral Moncada Comment on above: 08-14-14 Colonoscopy Tamela Gravius Comment on above: 08-14-14 Colonoscopy Kathy Rivera Comment on above: 08-14-14 H/O: section Tamela Gravius Comment on above: X 2 H/O: section Coral Moncada Comment on above: X 2 H/O: section Coral Moncada [employer] Comment on above: X 2 H/O: section Millie Peter [employer]OX [employer]ER H/O: section H/O sectio n Dr. Nikky Tabor Work Phone: H/O: section Tamela Gravius [employer]GAR [employer]E PL[employer]TER H/O: section Millie Peter [employer]ER H/O: section Millie Peter G[employer] BOX [employer]ER H/O: section Brittnee Kruger MA H/O: section Kayela Carroll [employer]E [employer]TER H/O: section Adama Alonso [employer]OX [employer]ER H/O: section Kayela Carroll SUGAR [employer]E PLANTER H/O: section Kayela [place] SUGAR CANE PLANTER History of cholecystectomy S/P laparoscopic cholecystectomy Dr. Nikky Tabor Work Phone: Past history of procedure Tamela Gravius Comment on above: 2000, 08-14-14 Past history of procedure Coral Moncada Comment on above: 08-14-14 Past history of procedure Coral Moncada LPN Comment on above: 08-14-14 Past history of procedure Millie Peter [employer] Past history of procedure Tamela Gravius SUGAR [employer]E PLANTER Past history of procedure Millie Peter [employer]OX [employer] Past history of procedure Millie Peter [employer]OX [employer] Past history of procedure Brittnee Kruger MA Past history of procedure Kayela [place] SUGAR CANE PLANTER Past history of procedure Adama Alonso [employer] Past history of procedure Kayela [place] SUGAR CANE PLANTER Past history of procedure Kayela [place] SUGAR CANE PLANTER Respiratory Panel (PCR) Dr. Nikky Tabor Work Phone: Coral Moncada LP N Millie Peter [employer] BOX [employer]ER Tamela Gravius SUGAR CANE PLANTER Millie Peter [employer] BOX [employer]ER Millie Peter GILL BOX [employer]ER Brittnee Kruger MA Kayela Carroll SUGAR CANE PLANTER Adama Gavin LP N Kayela [place] SUGAR CANE PLANTER Kayela [place] SUGAR CANE PLANTER Plan of Treatment Date Care Activity Detail Author Start: 01-18-2023 25 hydroxy includes fractions if performed [facility] Work Phone: Start: 01-13-2023 Procedure [facility]; [facility] Work Phone: Start: 01-13-2023 Provider Instructions for Treatment [facility]; [facility] Work Phone: Start: 01-13-2023 25 hydroxy includes fractions if performed [facility]; [facility] Work Phone: Start: 01-13-2023 Assay of thyroid stimulating hormone tsh [facility]; [facility] Work Phone: Start: 01-13-2023 Urnls dip stick/tablet reagent auto microscopy [facility]; [facility] Work Phone: Start: 01-13-2023 Urine albumin quantitative [facility]; [facility] Work Phone: Start: 01-13-2023 Comprehensive metabolic panel [facility]; [facility] Work Phone: Start: 01-13-2023 Lipid panel [facility]; [facility] Work Phone: Start: 01-13-2023 Blood count complete auto&auto difrntl wbc [facility]; [facility] Work Phone: Start: 10-22-2022 Bordetella pertussis IgA and IgG and IgM panel [Units/volume] - Serum by Immunoassay [facility] Start: 10-07-2022 Procedure Education [facility]; [facility] Work Phone: Start: 10-07-2022 Provider Instructions for Treatment [facility]; [facility] Work Phone: Start: 07-15-2022 Procedure Education [facility]; [facility] Work Phone: Start: 07-15-2022 Provider Instructions for Treatment [facility]; [facility] Work Phone: Start: 07-15-2022 Assay of thyroid stimulating hormone tsh [facility]; [facility] Work Phone: Start: 07-15-2022 Urnls dip stick/tablet reagent auto microscopy [facility]; [facility] Work Phone: Start: 07-15-2022 Urine albumin quantitative [facility]; [facility] Work Phone: Start: 07-15-2022 Comprehensive metabolic panel [facility]; [facility] Work Phone: Start: 07-15-2022 Lipid panel [facility]; [facility] Work Phone: Start: 07-15-2022 Blood count manual cell count each [facility]; [facility] Work Phone: Start: 07-06-2022 Procedure Education [facility]; [facility] Work Phone: Start: 07-06-2022 INHOUSE COVID 19 (ONLY) RAPID (22359) [facility]; [facility] Work Phone: Start: 05-07-2022 Influenza vaccination INFLUENZA (#1) [facility] Start: 05-05-2022 Procedure Education [facility]; [facility] Work Phone: Start: 05-05-2022 Provider Instructions for Treatment [facility]; [facility] Work Phone: Start: 03-13-2022 Blood occult fecal hgb deter ia qual feces 1-3 [facility]; [facility] Work Phone: Start: 03-12-2022 Blood occult fecal hgb deter ia qual feces 1-3 [facility]; [facility] Work Phone: Start: 01-01-2022 Procedure Education [facility]; [facility] Work Phone: Start: 01-01-2022 Provider Instructions for Treatment [facility]; [facility] Work Phone: Start: 12-24-2021 Procedure Education [facility]; [facility] Work Phone: Start: 09-06-2021 ADVANCE DIRECTIVE DISCUSSION ADVANCE DIRECTIVE DISCUSSION [facility] Start: 06-18-2021 Procedure Education [facility]; [facility] Work Phone: Start: 06-18-2021 Provider Instructions for Treatment [facility]; [facility] Work Phone: Start: 12-23-2020 Procedure Education [facility]; [facility] Work Phone: Start: 12-23-2020 Provider Instructions for Treatment [facility]; [facility] Work Phone: Start: 12-23-2020 Hepatitis c antibody HEPATITIS C ANTIBODY (66390) [facility]; [facility] Work Phone: Start: 12-11-2020 Procedure Education [facility]; [facility] Work Phone: Start: 12-11-2020 Provider Instructions for Treatment [facility]; [facility] Work Phone: Start: 12-11-2020 Assay of thyroid stimulating hormone tsh TSH ([id number]) [facility]; [facility] Work Phone: Start: 12-11-2020 TSH Qn TSH (64717) [facility]; [facility] Work Phone: Start: 12-11-2020 Urnls dip stick/tablet reagent auto microscopy URINALYSIS, W/ MICRO (17229) [facility]; [facility] Work Phone: Start: 12-11-2020 Urine albumin quantitative MICROALBUMIN: CREATININE RATIO (78952) AND (28497) [facility]; [facility] Work Phone: Start: 12-11-2020 Comprehensive metabolic panel METABOLIC PANEL, COMPREHENSIVE (45911) [facility]; [facility] Work Phone: Start: 12-11-2020 Blood count complete auto&auto difrntl wbc CBC W/AUTO DIFF WBC (03352) [facility]; [facility] Work Phone: Start: 12-11-2020 25 hydroxy includes fractions if performed CALCIFIDIOL (28983) VIT D 25 [facility]; [facility] Work Phone: Start: 12-11-2020 Lipoprotein blood ene numbers & subclasses NMR Profile (70939) [facility]; [facility] Work Phone: Start: 07-18-2020 Procedure Education [facility] Work Phone: Start: 07-18-2020 Provider Instructions for Treatment [facility] Work Phone: Start: 07-18-2020 TSH Qn TSH (92150) [facility] Work Phone: Start: 07-18-2020 Free T4 [Mass/Vol] T4, FREE (THYROXINE) (12521) [facility] Work Phone: Start: 07-18-2020 Free T3 [Mass/Vol] T3, FREE (TRIDOTHYRONINE) (16467) [facility] Work Phone: Start: 07-11-2020 Procedure Education [facility] Work Phone: Start: 06-12-2020 Procedure Education [facility] Work Phone: Start: 06-12-2020 Provider Instructions for Treatment [facility] Work Phone: Start: 06-12-2020 Oncology colorectal screening ene 10 dna markrs [facility] Work Phone: Start: 06-12-2020 Lipoprotein blood ene numbers & subclasses NMR Profile (59129) [facility] Work Phone: Start: 06-12-2020 Urnls dip stick/tablet reagent auto microscopy URINALYSIS, W/ MICRO (03683) [facility] Work Phone: Start: 06-12-2020 Urine albumin quantitative MICROALBUMIN: CREATININE RATIO (64307) AND (19873) [facility] Work Phone: Start: 06-12-2020 Comprehensive metabolic panel METABOLIC PANEL, COMPREHENSIVE (38649) [facility] Work Phone: Start: 06-12-2020 Blood count complete auto&auto difrntl wbc CBC W/AUTO DIFF WBC (59436) [facility] Work Phone: Start: 06-12-2020 TSH Qn TSH (88727) [facility] Work Phone: Start: 06-12-2020 25 hydroxy includes fractions if performed CALCIFEDIOL (52958) [facility] Work Phone: Start: 04-29-2020 Procedure Education [facility] Work Phone: Start: 04-29-2020 Provider Instructions for Treatment [facility] Work Phone: Start: 12-21-2019 Procedure Education [facility] Work Phone: Start: 12-21-2019 Provider Instructions for Treatment [facility] Work Phone: Start: 12-07-2019 Procedure Education [facility] Work Phone: Start: 12-07-2019 Provider Instructions for Treatment [facility] Work Phone: Start: 11-16-2019 Procedure Education [facility] Work Phone: Start: 11-16-2019 Provider Instructions for Treatment [facility] Work Phone: Start: 09-07-2019 Patient Education [facility] Work Phone: Start: 09-07-2019 Provider Instructions for Treatment [facility] Work Phone: Start: 09-07-2019 Iaadiadoo influenza [facility] Work Phone: Start: 05-17-2019 Procedure Education [facility] Work Phone: Start: 05-17-2019 Provider Instructions for Treatment [facility] Work Phone: Start: 05-17-2019 Free T4 [Mass/Vol] T4, FREE (THYROXINE) (64073) [facility] Work Phone: Start: 05-17-2019 Free T3 [Mass/Vol] T3, FREE (TRIDOTHYRONINE) (53749) [facility] Work Phone: Start: 05-17-2019 25 hydroxy includes fractions if performed CALCIFIDIOL (69442) VIT D 25 [facility] Work Phone: Start: 05-17-2019 TSH Qn TSH (00310) [facility] Work Phone: Start: 05-17-2019 Urnls dip stick/tablet reagent auto microscopy URINALYSIS, W/ MICRO (73868) [facility] Work Phone: Start: 05-17-2019 Urine albumin quantitative MICROALBUMIN: CREATININE RATIO (32999) AND (83689) [facility] Work Phone: Start: 05-17-2019 Comprehensive metabolic panel METABOLIC PANEL, COMPREHENSIVE (56851) [facility] Work Phone: Start: 05-17-2019 Blood count complete auto&auto difrntl wbc CBC W/AUTO DIFF WBC (09512) [facility] Work Phone: Start: 11-20-2018 DIABETES SCREEN DIABETES SCREEN [facility] Start: 11-14-2018 Provider Instructions for Treatment [facility] Work Phone: Start: 09-14-2018 Provider Instructions for Treatment [facility] Work Phone: Start: 06-14-2018 Procedure Education [facility] Work Phone: Start: 06-14-2018 Provider Instructions for Treatment [facility] Work Phone: Start: 05-19-2018 Provider Instructions for Treatment [facility] Work Phone: Start: 11-16-2017 Procedure Education [facility] Work Phone: Start: 11-16-2017 Provider Instructions for Treatment [facility] Work Phone: Start: 11-10-2017 Provider Instructions for Treatment [facility] Work Phone: Start: 11-02-2016 Provider Instructions for Treatment [facility] Work Phone: Start: 11-02-2016 Cul bact aerobic addl meths definitive ea isol [facility] Work Phone: Start: 11-02-2016 Hpv, dna, amp probe [facility] Work Phone: Start: 09-08-2016 Procedure Education [facility] Work Phone: Start: 09-08-2016 Provider Instructions for Treatment [facility] Work Phone: Start: 06-15-2016 Assay of triiodothyronine t3 free [facility]; [facility] Work Phone: Start: 06-15-2016 T3 free mass conc T3, FREE (TRIDOTHYRONINE) (84738) [facility] Work Phone: Start: 06-15-2016 Assay of free thyroxine [facility]; [facility] Work Phone: Start: 06-15-2016 T4 free mass conc T4, FREE (THYROXINE) (23621) [facility] Work Phone: Start: 06-15-2016 Assay of thyroid stimulating hormone tsh [facility]; [facility] Work Phone: Start: 06-15-2016 Thyrotropin Qn TSH (THYROID STIMULATING HORMONE) (09503) [facility] Work Phone: Start: 05-21-2016 Assay of free thyroxine [facility]; [facility] Work Phone: Start: 05-21-2016 T4 free mass conc T4, FREE (THYROXINE) (66997) [facility] Work Phone: Start: 05-21-2016 Assay of triiodothyronine t3 free [facility]; [facility] Work Phone: Start: 05-21-2016 T3 free mass conc T3, FREE (TRIDOTHYRONINE) (83221) [facility] Work Phone: Start: 05-19-2016 Procedure Education [facility] Work Phone: Start: 05-19-2016 Urine albumin quantitative [facility] Work Phone: Start: 05-19-2016 Cobalamin (Vitamin B12) mass conc VITAMIN B12 AND FOLATES (02536) [facility] Work Phone: Start: 05-19-2016 Cyanocobalamin vitamin b-12 [facility]; [facility] Work Phone: Start: 05-19-2016 25 hydroxy includes fractions if performed [facility] Work Phone: Start: 05-19-2016 Assay of thyroid stimulating hormone tsh [facility]; [facility] Work Phone: Start: 05-19-2016 Thyrotropin Qn TSH (THYROID STIMULATING HORMONE) (35912) [facility] Work Phone: Start: 05-19-2016 Comprehensive metabolic panel [facility] Work Phone: Start: 05-19-2016 Lipid panel [facility] Work Phone: Start: 05-19-2016 Blood count complete auto&auto difrntl wbc [facility] Work Phone: Start: 05-14-2016 Microsomal antibodies each [facility] Work Phone: Start: 05-14-2016 Assay of free thyroxine [facility]; [facility] Work Phone: Start: 05-14-2016 T4 free mass conc T4, FREE (THYROXINE) (16876) [facility] Work Phone: Start: 05-14-2016 Assay of triiodothyronine t3 free [facility]; [facility] Work Phone: Start: 05-14-2016 T3 free mass conc T3, FREE (TRIDOTHYRONINE) (30978) [facility] Work Phone: Start: 04-08-2016 Procedure Education [facility] Work Phone: Start: 04-08-2016 Urine albumin quantitative [facility] Work Phone: Start: 04-08-2016 Hemoglobin A1c/Hemoglobin.total mass fraction (Bld) HGB A1C (88863) [facility] Work Phone: Start: 04-08-2016 Hemoglobin glycosylated a1c [facility]; [facility] Work Phone: Start: 04-08-2016 Cobalamin (Vitamin B12) mass conc VITAMIN B12 AND FOLATES (17334) [facility] Work Phone: Start: 04-08-2016 Cyanocobalamin vitamin b-12 [facility]; [facility] Work Phone: Start: 04-08-2016 25 hydroxy includes fractions if performed [facility] Work Phone: Start: 04-08-2016 Assay of thyroid stimulating hormone tsh [facility]; [facility] Work Phone: Start: 04-08-2016 Thyrotropin Qn TSH (THYROID STIMULATING HORMONE) (30621) [facility] Work Phone: Start: 04-08-2016 Lipid panel [facility] Work Phone: Start: 04-08-2016 Comprehensive metabolic panel [facility] Work Phone: Start: 04-08-2016 Blood count complete auto&auto difrntl wbc [facility] Work Phone: Start: 03-31-2016 Procedure Education [facility] Work Phone: Start: 03-31-2016 Provider Instructions for Treatment [facility] Work Phone: Start: 12-09-2015 Procedure Education [facility] Work Phone: Start: 12-09-2015 Provider Instructions for Treatment [facility] Work Phone: Start: 10-31-2015 Provider Instructions for Treatment [facility] Work Phone: Start: 04-23-2015 Procedure Education [facility] Work Phone: Start: 03-18-2015 Patient Education [facility] Work Phone: Start: 03-18-2015 Procedure Education [facility] Work Phone: Start: 02-07-2015 Procedure Education [facility] Work Phone: Start: 02-01-2015 Provider Instructions for Treatment [facility] Work Phone: Start: 2014 BONE DENSITY BONE DENSITY [facility] Start: 2014 PNEUMOCOCCAL: 65+ (1 - PCV) PNEUMOCOCCAL: 65+ (1 - PCV) [facility] Start: 10-29-2014 Patient Education [facility] Work Phone: Start: 10-29-2014 Procedure Education [facility] Work Phone: Start: 10-29-2014 End: 10-30-2014 Spmtry w/vc expiratory trey w/wo mxml vol vntj [facility]; [facility] Work Phone: Comment on above: good effort and curve normal Start: 07-10-2014 Procedure Education [facility] Work Phone: Start: 07-10-2014 Urnls dip stick/tablet reagent auto microscopy [facility] Work Phone: Start: 07-10-2014 Comprehensive metabolic panel [facility] Work Phone: Start: 07-10-2014 Lipid panel [facility] Work Phone: Start: 07-10-2014 Blood count complete auto&auto difrntl wbc [facility] Work Phone: Start: 06-14-2014 Patient Education [facility] Work Phone: Start: 05-12-2013 Patient Education [facility] Work Phone: Start: 11-07-2012 Provider Instructions for Treatment [facility] Work Phone: Start: 06-21-2012 Urnls dip stick/tablet reagent auto microscopy [facility] Work Phone: Start: 06-21-2012 Comprehensive metabolic panel [facility] Work Phone: Start: 06-21-2012 Lipid panel [facility] Work Phone: Start: 06-21-2012 Blood count manual cell count each [facility] Work Phone: Start: 05-08-2011 Urnls dip stick/tablet reagent auto microscopy [facility] Work Phone: Start: 05-08-2011 Comprehensive metabolic panel [facility] Work Phone: Start: 05-08-2011 Blood count manual cell count each [facility] Work Phone: Start: 05-08-2011 Lipoprotein blood ene numbers & subclasses [facility]; [facility] Work Phone: Start: 05-08-2011 Protein mass conc LIPOPROTEIN, BLD, BY NMR (20930) [facility] Work Phone: Start: 09-20-2009 Urnls dip stick/tablet reagent auto microscopy [facility] Work Phone: Start: 09-20-2009 Comprehensive metabolic panel [facility] Work Phone: Start: 09-20-2009 Lipid panel [facility] Work Phone: Start: 09-20-2009 Blood count manual cell count each [facility] Work Phone: Start: 07-19-2008 Provider Instructions for Treatment [facility] Work Phone: Start: 07-19-2008 Urnls dip stick/tablet rgnt auto w/o microscopy [facility] Work Phone: Start: 07-19-2008 Comprehensive metabolic panel [facility] Work Phone: Start: 07-19-2008 Lipid panel [facility] Work Phone: Start: 07-19-2008 Blood count manual cell count each [facility] Work Phone: Start: 07-04-2007 Provider Instructions for Treatment [facility] Work Phone: Start: 12-31-2006 Blood count complete automated [facility] Work Phone: Start: 12-31-2006 Comprehensive metabolic panel [facility] Work Phone: Start: 12-31-2006 Lipid panel [facility] Work Phone: Start: 12-16-1999 SHINGRIX VACCINE (1 of 2) SHINGRIX VACCINE (1 of 2) [facility] Start: 1994 COLOGUARD (FIT-DNA) COLOGUARD (FIT-DNA) [facility] Start: 1994 Colonoscopy COLONOSCOPY [facility] Start: 1994 COLORECTAL CANCER SCREENING COLORECTAL CANCER SCREENING [facility] Start: [address] COLONOGRAPHY [facility] Start: 1994 FECAL OCCULT BLOOD FECAL OCCULT BLOOD [facility] Start: 1994 LIPID SCREEN LIPID SCREEN [facility] Start: 1994 SIGMOIDOSCOPY SIGMOIDOSCOPY [facility] Start: 1989 Mammography MAMMOGRAM [facility] Start: 1968 Urine microalbumin profile DTAP,TDAP,TD (1 - Tdap) [facility] Start: 12-16-1967 HEPATITIS C SCREENING HEPATITIS C SCREENING [facility] Start: 1961 Adult depression screening assessment DEPRESSION SCREENING [facility] Start: [birth year]-16-1950 COVID-19 VACCINE (#1) COVID-19 VACCINE (#1) [facility] Bordetella pertussis IgA Ab [Units/volume] in Serum [facility] Bordetella pertussis IgG Ab [Units/volume] in Serum [facility] Bordetella pertussis IgM Ab [Units/volume] in Serum [facility] Inhalation challenge test report Document --W methacholine inhaled [facility] MG Breast - bilatera l Screening [facility] Patient referral [facility] Work Phone: [facility] Work Phone: [facility] Work Phone: [facility] Work Phone: [facility] Work Phone: [facility] Work Phone[facility] Work Phone[facility] Work Phone: [facility] Work Phone: [facility] Work Phone: [facility] Work Phone: [facility] Work Phone: [facility] Work Phone: [facility] Work Phone[facility] Work Phone: [facility] Work Phone: [facility] Work Phone: [facility] Work Phone: [facility] Work Phone: [facility] Work Phone: [facility] Work Phone[facility] Work Phone: [facility] Work Phone: [facility] Work Phone: [facility] Work Phone: [facility] Work Phone: [facility] Work Phone: [facility] Work Phone: [facility] Work Phone: [facility] Work Phone: [facility] Work Phone: [facility] Work Phone: [facility] Work Phone: [facility] Work Phone: [facility] Work Phone[facility] Work Phone[facility] Work Phone[facility] Work Phone: [facility]; [facility] Work Phone: [facility]; [facility] Work Phone: [facility]; [facility] Work Phone: [facility]; [facility] Work Phone: [facility]; [facility] Work Phone: [facility] Work Phone: [facility] Work Phone: [facility] Work Phone: [facility] Work Phone: [facility] Work Phone: [facility]; [facility] Work Phone: [facility]; [facility] Work Phone: Immunizations Immunization Date Immunization Notes Care Provider Alonso baez 10-08-2022 zoster vaccine, live Mitch Tabor DO Work Phone: [facility]; [facility] Work Phone: 09-30-2022 COVID-Pfizer (3 MCG/0.2 ML) Nikky Tabor DO Work Phone: [facility]; [facility] Work Phone: 09-25-2022 zoster vaccine, live Mitch Tabor DO Work Phone: [facility]; [facility] Work Phone: 06-06-2021 COVID-Pfizer (30 MCG/0.3 ML) Nikky Tabor DO Work Phone: [facility]; [facility] Work Phone: 11-06-2020 COVID-19 (Moderna) Nikky Tabor [facility]; [facility] Work Phone: Comment on above: PFIZER VACCINE NOT M ODERNA THIS WAS ERROR IN ENTERING 11-04-2020 COVID-19 (Pfizer) Nikky Tabor [facility]; [facility] Work Phone: 09-06-2020 COVID-Pfizer (30 MCG/0.3 ML) Nikky Tabor DO Work Phone: [facility]; [facility] Work Phone: 07-04-2007 influenza, seasonal, injectable Nikky Tabor [facility] Work Phone: 12-31-2006 tetanus and diphther ia toxoids, adsorbed, preservative free, for adult use (2 Lf of tetanus toxoid and 2 Lf of diphtheria toxoid) Nikky Tabor [facility] Work Phone: Payers Date Payer Category Payer Medicare [id number] 2024 Self-pay [id number] 2023 Private Health Insurance [id number] 2021 Unknown JG GREGORIO ME DICARE SUPPLEMENT [id number] 2021-Present [phone] [id number] [place] [address] Indemnity [id number] 2016 Medicare [id number] 2014 Medicare [id number] 2014 Medicare MEDICARE MEDICAR E A AND B [id number] 2014-Present [phone] [place] [address] Medicare [id number] 2014 Medicare [id number] 2014 Unknown [id number] 2011 Private Health Insurance [id number] 2003 Unknown [id number] 1949 Unknown [id number] 1949 Unknown [id number] Medicare [id number] Unknown Unknown [id number] Unknown [id number] Unknown [id number] Unknown [id number] Unknown [id number] Unknown [id number] Social History Date Type Detail Facility Caffeine Use Never smoker [facility] Work Phone: Comment on above: 3 cola QD Retired 30 mins 3 X a week , heterosexua l Tobacco use: Never smoker. [facility] Work Phone: Tobacco use: Tobacco use: [facility]; [facility] Work Phone: Start: 10-06-2021 End: 12-13-2023 Tobacco smoking status NEIS Unknown if ever smoked [facility] Start: 06-27-2021 None [facility] Start: 06-27-2021 Homeless [facility] Start: 06-27-2021 Non-smoker [facility] Start: 1950 Sex Assigned At Female [facility] Start: 11-18-2015 End: 12-13-2023 Tobacco smoking status NEIS Never smoked tobacco [facility] Start: 12-10-2015 Alcohol intake Current drinke r of alcohol (finding) [facility] Start: 11-21-2015 History SDOH Alcohol Comment occasional wine [facility] Start: 1950 Sex Assigned At Not on file C [facility] Start: 03-01-2022 End: 03-11-2022 Exposure to SARS-CoV-2 (event) Unable to assess [facility] Work Phone: Functional Status Date Assessment Result Facility 12-24-2020 [facility]; [facility] Work Phone: 07-15-2020 LP-IR Score 47 [facility] Work Phone: Comment on above: INSULIN RESISTANCE Umer BUTTS <--Insulin Sensitive Insulin Resistant--> Percentile in Reference PopulationInsulin Resistance ScoreLP-IR Score Low 25th 50th 75th High <27 27 45 63 >63LP-IR Score is inaccurate if patient is non-fasting. .The LP-IR score is a laboratory developed index that has beenassociated with insulin resistance and diabetes risk and should beused as one component of a physician's clinical assessment. Test(s) 431929-POW-B ; 604044-AIH-R; 675536-Snoktcrkrfetp; 863403-Ckazejexqqr, Total; 272220-SBE-B (Total); 211983-Cmyul LDL-P; 516474-QJE Size; 226468-QN-NP Scorewas developed and its performance characteristics determinedby [employer]. It has not been cleared or approved by the Foodand Drug Administration.PATIENT WAS FASTINGPERFORMED BY: BN LabCoKevin [place] [id number] [facility] [id number] BY: CB LabCoBacharach Institute for RehabilitationPrtqoy2963 [facility] [id number] Clinical Notes 06-14-2018 to 05-24-2023 Telephone Encounter - Kathya Johnson - 03/11/2022 4:41 PM EDTTelephone Encounter - Tamiko Felix - 03/11/2022 11:17 AM EDT Note Date & Type Note Facility 05-24-2023 Procedure note [facility] 10-15-2022 Procedure note [facility] 03-11-2022 Miscellaneous Notes Pt called again. (did not indicate she had called previously) She is scheduled with knowledge that she may need to get a referral from her primary. She stated she they are willing to send if necessary. Also stated she had seen Dr. Borges in 2019 at [facility]. Pt calling in stating that she is having black stool past two days and was told by Dr. Bunn office that it could be a possible GI bleed. She is wondering if Dr. Borges would be willing to see her for this? Pt was last seen by Dr. Borges at [facility] in 2019 for colonoscopy. Please advise Tamiko Felix documented in this encounter [facility] 06-14-2018 Microscopic obser vation Gram stain Nom (Sput) [facility]; [facility] Work Phone: Gram Stain Evaluation [facility] (Normal) Comment on above: This specimen is of good quality and is acceptable for routinebacterial culture. PATIENT NOT FASTINGP ERFORMED BY: RUTH [facility] [id number] [facility] [id number] Information: SRC:SP Evaluation note Diagnosis Onset Date Lichen sclerosus acute [facility] Work Phone: Evaluation noteNo assessment information available [facility] Work Phone: Evaluation note* Diagnosis Onset Date Resolution Status Lichen sclerosus acute Encounter for routine gynecological examination noneactive Chronic cough chronic [facility] Work Phone: Evaluation note* Diagnosis Onset Date Resolution Status Lichen sclerosus acute Encounter for routine gynecological examination noneactive Chronic cough chronic Acute viral bronchitis acute GERD (gastroesophageal reflux disease) acute Vaccine counseling acute [facility] Work Phone: Evaluation note* Diagnosis Onset Date Resolution Status Acute viral bronchitis acute GERD (gastroesophageal reflux disease) acute Vaccine counseling acute Chronic cough chronic [facility] Work Phone: Evaluation note* Diagnosis Onset Date Resolution Status Acute viral bronchitis acute GERD (gastroesophageal reflux disease) acute Vaccine counseling acute Chronic cough chronic Allergic rhinitis acute Chronic cough chronic [facility] Work Phone: Evaluation note* Diagnosis Onset Date Resolution Status Chronic cough chronic Allergic rhinitis acute Chronic cough [facility] Work Phone: Evaluation note* Diagnosis Onset Date Resolution Status Chronic cough chronic Eosinophil count raised acut e Allergic asthma [facility] Work Phone: Evaluation note* Diagnosis Onset Date Resolution Status Atrophic vaginitis acute Lichen sclerosus acute Encounter for routine gynecological examination noneactive Allergic asthma chronic [facility] Work Phone: Hospital Discharge instructions Additional Instructions Please advance her diet as tolerated. Please return for any worsening symptoms. You had some left renal cysts that were actually found on your CAT scan. You had no significant acute pathology. Please maintain hydration [facility] Instructions* Name Dates Details How to Access [employer] Online using Patient Portal and [employer]rd [employer] Apps Indication:Nonsmoker Start:23-Dec-2020 Instruction Type:Patient Education Patient Instructions Indication:Nonsmoker Start:23-Dec-2020 Instruction Type:Provider Instructions for Treatment How to Access Health Informa tion Online using Patient Portal and [employer]rd [employer] Apps Indication:Nonsmoker Start:11-Dec-2020 Instruction Type:Patient Education Patient Instructions Indication:Nonsmoker Start:11-Dec-2020 Instruction Type:Provider Instructions for Treatment How to access health informa tion online Indication:BMI 28.0-28.9,adult Start:18-Jul-2020 Instruction Type:Patient Education How to access health informa tion online - Detail Indication:BMI 28.0-28.9,adult Start:18-Jul-2020 Instruction Type:Patient Education Patient Instructions Indication:BMI 28.0-28.9,adult Start:18-Jul-2020 Instruction Type:Provider Instructions for Treatment How to access health informa tion online Indication:Nonsmoker Start:11-Jul-2020 Instruction Type:Patient Education How to access health informa tion online - Detail Indication:Nonsmoker Start:11-Jul-2020 Instruction Type:Patient Education Patient Instructions Indication:Nonsmoker Start:11-Jul-2020 Instruction Type:Provider Instructions for Treatment How to access health informa tion online Indication:BMI 27.0-27.9,adult Start:12-Jun-2020 Instruction Type:Patient Education How to access health informa tion online - Detail Indication:BMI 27.0-27.9,adult Start:12-Jun-2020 Instruction Type:Patient Education Patient Instructions Indication:BMI 27.0-27.9,adult Start:12-Jun-2020 Instruction Type:Provider Instructions for Treatment How to access health informa tion online Indication:BMI 27.0-27.9,adult Start:29-Apr-2020 Instruction Type:Patient Education How to access health informa tion online - Detail Indication:BMI 27.0-27.9,adult Start:29-Apr-2020 Instruction Type:Patient Education Patient Instructions Indication:BMI 27.0-27.9,adult Start:29-Apr-2020 Instruction Type:Provider Instructions for Treatment How to access health informa tion online Indication:Nonsmoker Start:21-Dec-2019 Instruction Type:Patient Education How to access health informa tion online - Detail Indication:Nonsmoker Start:21-Dec-2019 Instruction Type:Patient Education Patient Instructions Indication:Nonsmoker Start:21-Dec-2019 Instruction Type:Provider Instructions for Treatment How to access health informa tion online Indication:Nonsmoker Start:07-Dec-2019 Instruction Type:Patient Education How to access health informa tion online - Detail Indication:Nonsmoker Start:07-Dec-2019 Instruction Type:Patient Education Patient Instructions Indication:Nonsmoker Start:07-Dec-2019 Instruction Type:Provider Instructions for Treatment How to access health informa tion online Indication:BMI 27.0-27.9,adult Start:16-Nov-2019 Instruction Type:Patient Education How to access health informa tion online - Detail Indication:BMI 27.0-27.9,adult Start:16-Nov-2019 Instruction Type:Patient Education Patient Instructions Indication:BMI 27.0-27.9,adult Start:16-Nov-2019 Instruction Type:Provider Instructions for Treatment How to access health informa tion online Indication:BMI 28.0-28.9,adult Start:07-Sep-2019 Instruction Type:Patient Education How to access health informa tion online - Detail Indication:BMI 28.0-28.9,adult Start:07-Sep-2019 Instruction Type:Patient Education Patient Instructions Indication:Post-nasal drainage Start:07-Sep-2019 Instruction Type:Provider Instructions for Treatment How to access health informa tion online Indication:Hypertension, benign Start:17-May-2019 Instruction Type:Patient Education How to access health informa tion online - Detail Indication:Hypertension, benign Start:17-May-2019 Instruction Type:Patient Education Patient Instructions Indication:Hypertension, benign Start:17-May-2019 Instruction Type:Provider Instructions for Treatment How to access health informa tion online Indication:Nonsmoker Start:14-Nov-2018 Instruction Type:Patient Education How to access health informa tion online - Detail Indication:Nonsmoker Start:14-Nov-2018 Instruction Type:Patient Education Patient Instructions Indication:Nonsmoker Start:14-Nov-2018 Instruction Type:Provider Instructions for Treatment How to access health informa tion online Indication:Nonsmoker Start:14-Sep-2018 Instruction Type:Patient Education How to access health informa tion online - Detail Indication:Nonsmoker Start:14-Sep-2018 Instruction Type:Patient Education Patient Instructions Indication:Nonsmoker Start:14-Sep-2018 Instruction Type:Provider Instructions for Treatment How to access health informa tion online Indication:Nonsmoker Start:04-Jul-2018 Instruction Type:Patient Education Patient Instructions Indication:Nonsmoker Start:04-Jul-2018 Instruction Type:Provider Instructions for Treatment How to access health informa tion online Indication:BMI 27.0-27.9,adult Start:14-Jun-2018 Instruction Type:Patient Education How to access health informa tion online - Detail Indication:BMI 27.0-27.9,adult Start:14-Jun-2018 Instruction Type:Patient Education Patient Instructions Indication:BMI 27.0-27.9,adult Start:14-Jun-2018 Instruction Type:Provider Instructions for Treatment How to access health informa tion online Indication:Need for prophylactic vaccination and inoculation against influenza (Renamed from Need for immunization against influenza) Start:19-May-2018 Instruction Type:Patient Education How to access health informa tion online - Detail Indication:Need for prophylactic vaccination and inoculation against influenza (Renamed from Need for immunization against influenza) Start:19-May-2018 Instruction Type:Patient Education Patient Instructions Indication:Need for prophylactic vaccination and inoculation against influenza (Renamed from Need for immunization against influenza) Start:19-May-2018 Instruction Type:Provider Instructions for Treatment How to access health informa tion online Indication:Nonsmoker Start:16-Nov-2017 Instruction Type:Patient Education How to access health informa tion online - Detail Indication:Nonsmoker Start:16-Nov-2017 Instruction Type:Patient Education Patient Instructions Indication:Nonsmoker Start:16-Nov-2017 Instruction Type:Provider Instructions for Treatment How to access health informa tion online Indication:Nonsmoker Start:10-Nov-2017 Instruction Type:Patient Education How to access health informa tion online - Detail Indication:Nonsmoker Start:10-Nov-2017 Instruction Type:Patient Education Patient Instructions Indication:Nonsmoker Start:10-Nov-2017 Instruction Type:Provider Instructions for Treatment How to access health informa tion online Indication:Nonsmoker Start:02-Nov-2016 Instruction Type:Patient Education How to access health informa tion online - Detail Indication:Nonsmoker Start:02-Nov-2016 Instruction Type:Patient Education Patient Instructions Indication:Nonsmoker Start:02-Nov-2016 Instruction Type:Provider Instructions for Treatment How to access health informa tion online - Detail Indication:Bronchitis Start:08-Sep-2016 Instruction Type:Patient Education Patient Instructions Indication:Bronchitis Start:08-Sep-2016 Instruction Type:Provider Instructions for Treatment How to access health informa tion online Indication:Encounter for screening mammogram for breast cancer (Renamed from Encounter for screening mammogram for malignant neoplasm of breast) Start:19-May-2016 Instruction Type:Patient Education How to access health informa tion online - Detail Indication:Encounter for screening mammogram for breast cancer (Renamed from Encounter for screening mammogram for malignant neoplasm of breast) Start:19-May-2016 Instruction Type:Patient Education Patient Instructions Indication:Encounter for screening mammogram for breast cancer (Renamed from Encounter for screening mammogram for malignant neoplasm of breast) Start:19-May-2016 Instruction Type:Provider Instructions for Treatment Patient Instructions Indication:Acute bronchitis due to other specified organisms Start:07-May-2016 Instruction Type:Provider Instructions for Treatment How to access health informa tion online Indication:Cough Start:08-Apr-2016 Instruction Type:Patient Education How to access health informa tion online - Detail Indication:Cough Start:08-Apr-2016 Instruction Type:Patient Education Patient Instructions Indication:Cough Start:08-Apr-2016 Instruction Type:Provider Instructions for Treatment How to access health informa tion online Indication:Cough Start:31-Mar-2016 Instruction Type:Patient Education How to access health informa tion online - Detail Indication:Cough Start:31-Mar-2016 Instruction Type:Patient Education Patient Instructions Indication:Cough Start:31-Mar-2016 Instruction Type:Provider Instructions for Treatment How to access health informa tion online - Detail Indication:Cough Start:09-Dec-2015 Instruction Type:Patient Education How to access health informa tion online - Detail Indication:Cough Start:09-Dec-2015 Instruction Type:Patient Education How to access health informa tion online - Detail Indication:Cough Start:09-Dec-2015 Instruction Type:Patient Education Patient Instructions Indication:Cough Start:09-Dec-2015 Instruction Type:Provider Instructions for Treatment How to access health informa tion online Indication:Rash/skin eruption Start:23-Apr-2015 Instruction Type:Patient Education How to access health informa tion online - Detail Indication:Rash/skin eruption Start:23-Apr-2015 Instruction Type:Patient Education Patient Instructions Indication:Rash/skin eruption Start:23-Apr-2015 Instruction Type:Provider Instructions for Treatment Patient Instructions Indication:Rash/skin eruption Start:18-Mar-2015 Instruction Type:Provider Instructions for Treatment Patient Instructions Indication:Acute bronchitis Start:29-Oct-2014 Instruction Type:Provider Instructions for Treatment How to access health informa tion online Indication:GERD (gastroesophageal reflux disease) Start:10-Jul-2014 Instruction Type:Patient Education How to access health informa tion online - Detail Indication:GERD (gastroesophageal reflux disease) Start:10-Jul-2014 Instruction Type:Patient Education Patient Instructions Indication:GERD (gastroesophageal reflux disease) Start:10-Jul-2014 Instruction Type:Provider Instructions for Treatment Patient Instructions Indication:GERD (gastroesophageal reflux disease) Start:12-May-2013 Instruction Type:Provider Instructions for Treatment [facility]; [facility] Work Phone: Instructions* Name Dates Details How to Access Health Informa tion Online using Patient Portal and POI Indication:Nonsmoker Start:23-Dec-2020 Instruction Type:Patient Education Patient Instructions Indication:Nonsmoker Start:23-Dec-2020 Instruction Type:Provider Instructions for Treatment How to Access Health Informa tion Online using Patient Portal and [employer] Apps Indication:Nonsmoker Start:11-Dec-2020 Instruction Type:Patient Education Patient Instructions Indication:Nonsmoker Start:11-Dec-2020 Instruction Type:Provider Instructions for Treatment How to access health informa tion online Indication:BMI 28.0-28.9,adult Start:18-Jul-2020 Instruction Type:Patient Education How to access health informa tion online - Detail Indication:BMI 28.0-28.9,adult Start:18-Jul-2020 Instruction Type:Patient Education Patient Instructions Indication:BMI 28.0-28.9,adult Start:18-Jul-2020 Instruction Type:Provider Instructions for Treatment How to access health informa tion online Indication:Nonsmoker Start:11-Jul-2020 Instruction Type:Patient Education How to access health informa tion online - Detail Indication:Nonsmoker Start:11-Jul-2020 Instruction Type:Patient Education Patient Instructions Indication:Nonsmoker Start:11-Jul-2020 Instruction Type:Provider Instructions for Treatment How to access health informa tion online Indication:BMI 27.0-27.9,adult Start:12-Jun-2020 Instruction Type:Patient Education How to access health informa tion online - Detail Indication:BMI 27.0-27.9,adult Start:12-Jun-2020 Instruction Type:Patient Education Patient Instructions Indication:BMI 27.0-27.9,adult Start:12-Jun-2020 Instruction Type:Provider Instructions for Treatment How to access health informa tion online Indication:BMI 27.0-27.9,adult Start:29-Apr-2020 Instruction Type:Patient Education How to access health informa tion online - Detail Indication:BMI 27.0-27.9,adult Start:29-Apr-2020 Instruction Type:Patient Education Patient Instructions Indication:BMI 27.0-27.9,adult Start:29-Apr-2020 Instruction Type:Provider Instructions for Treatment How to access health informa tion online Indication:Nonsmoker Start:21-Dec-2019 Instruction Type:Patient Education How to access health informa tion online - Detail Indication:Nonsmoker Start:21-Dec-2019 Instruction Type:Patient Education Patient Instructions Indication:Nonsmoker Start:21-Dec-2019 Instruction Type:Provider Instructions for Treatment How to access health informa tion online Indication:Nonsmoker Start:07-Dec-2019 Instruction Type:Patient Education How to access health informa tion online - Detail Indication:Nonsmoker Start:07-Dec-2019 Instruction Type:Patient Education Patient Instructions Indication:Nonsmoker Start:07-Dec-2019 Instruction Type:Provider Instructions for Treatment How to access health informa tion online Indication:BMI 27.0-27.9,adult Start:16-Nov-2019 Instruction Type:Patient Education How to access health informa tion online - Detail Indication:BMI 27.0-27.9,adult Start:16-Nov-2019 Instruction Type:Patient Education Patient Instructions Indication:BMI 27.0-27.9,adult Start:16-Nov-2019 Instruction Type:Provider Instructions for Treatment How to access health informa tion online Indication:BMI 28.0-28.9,adult Start:07-Sep-2019 Instruction Type:Patient Education How to access health informa tion online - Detail Indication:BMI 28.0-28.9,adult Start:07-Sep-2019 Instruction Type:Patient Education Patient Instructions Indication:Post-nasal drainage Start:07-Sep-2019 Instruction Type:Provider Instructions for Treatment How to access health informa tion online Indication:Hypertension, benign Start:17-May-2019 Instruction Type:Patient Education How to access health informa tion online - Detail Indication:Hypertension, benign Start:17-May-2019 Instruction Type:Patient Education Patient Instructions Indication:Hypertension, benign Start:17-May-2019 Instruction Type:Provider Instructions for Treatment How to access health informa tion online Indication:Nonsmoker Start:14-Nov-2018 Instruction Type:Patient Education How to access health informa tion online - Detail Indication:Nonsmoker Start:14-Nov-2018 Instruction Type:Patient Education Patient Instructions Indication:Nonsmoker Start:14-Nov-2018 Instruction Type:Provider Instructions for Treatment How to access health informa tion online Indication:Nonsmoker Start:14-Sep-2018 Instruction Type:Patient Education How to access health informa tion online - Detail Indication:Nonsmoker Start:14-Sep-2018 Instruction Type:Patient Education Patient Instructions Indication:Nonsmoker Start:14-Sep-2018 Instruction Type:Provider Instructions for Treatment How to access health informa tion online Indication:Nonsmoker Start:04-Jul-2018 Instruction Type:Patient Education Patient Instructions Indication:Nonsmoker Start:04-Jul-2018 Instruction Type:Provider Instructions for Treatment How to access health informa tion online Indication:BMI 27.0-27.9,adult Start:14-Jun-2018 Instruction Type:Patient Education How to access health informa tion online - Detail Indication:BMI 27.0-27.9,adult Start:14-Jun-2018 Instruction Type:Patient Education Patient Instructions Indication:BMI 27.0-27.9,adult Start:14-Jun-2018 Instruction Type:Provider Instructions for Treatment How to access health informa tion online Indication:Need for prophylactic vaccination and inoculation against influenza (Renamed from Need for immunization against influenza) Start:19-May-2018 Instruction Type:Patient Education How to access health informa tion online - Detail Indication:Need for prophylactic vaccination and inoculation against influenza (Renamed from Need for immunization against influenza) Start:19-May-2018 Instruction Type:Patient Education Patient Instructions Indication:Need for prophylactic vaccination and inoculation against influenza (Renamed from Need for immunization against influenza) Start:19-May-2018 Instruction Type:Provider Instructions for Treatment How to access health informa tion online Indication:Nonsmoker Start:16-Nov-2017 Instruction Type:Patient Education How to access health informa tion online - Detail Indication:Nonsmoker Start:16-Nov-2017 Instruction Type:Patient Education Patient Instructions Indication:Nonsmoker Start:16-Nov-2017 Instruction Type:Provider Instructions for Treatment How to access health informa tion online Indication:Nonsmoker Start:10-Nov-2017 Instruction Type:Patient Education How to access health informa tion online - Detail Indication:Nonsmoker Start:10-Nov-2017 Instruction Type:Patient Education Patient Instructions Indication:Nonsmoker Start:10-Nov-2017 Instruction Type:Provider Instructions for Treatment How to access health informa tion online Indication:Nonsmoker Start:02-Nov-2016 Instruction Type:Patient Education How to access health informa tion online - Detail Indication:Nonsmoker Start:02-Nov-2016 Instruction Type:Patient Education Patient Instructions Indication:Nonsmoker Start:02-Nov-2016 Instruction Type:Provider Instructions for Treatment How to access health informa tion online - Detail Indication:Bronchitis Start:08-Sep-2016 Instruction Type:Patient Education Patient Instructions Indication:Bronchitis Start:08-Sep-2016 Instruction Type:Provider Instructions for Treatment How to access health informa tion online Indication:Encounter for screening mammogram for breast cancer (Renamed from Encounter for screening mammogram for malignant neoplasm of breast) Start:19-May-2016 Instruction Type:Patient Education How to access health informa tion online - Detail Indication:Encounter for screening mammogram for breast cancer (Renamed from Encounter for screening mammogram for malignant neoplasm of breast) Start:19-May-2016 Instruction Type:Patient Education Patient Instructions Indication:Encounter for screening mammogram for breast cancer (Renamed from Encounter for screening mammogram for malignant neoplasm of breast) Start:19-May-2016 Instruction Type:Provider Instructions for Treatment Patient Instructions Indication:Acute bronchitis due to other specified organisms Start:07-May-2016 Instruction Type:Provider Instructions for Treatment How to access health informa tion online Indication:Cough Start:08-Apr-2016 Instruction Type:Patient Education How to access health informa tion online - Detail Indication:Cough Start:08-Apr-2016 Instruction Type:Patient Education Patient Instructions Indication:Cough Start:08-Apr-2016 Instruction Type:Provider Instructions for Treatment How to access health informa tion online Indication:Cough Start:31-Mar-2016 Instruction Type:Patient Education How to access health informa tion online - Detail Indication:Cough Start:31-Mar-2016 Instruction Type:Patient Education Patient Instructions Indication:Cough Start:31-Mar-2016 Instruction Type:Provider Instructions for Treatment How to access health informa tion online - Detail Indication:Cough Start:09-Dec-2015 Instruction Type:Patient Education How to access health informa tion online - Detail Indication:Cough Start:09-Dec-2015 Instruction Type:Patient Education How to access health informa tion online - Detail Indication:Cough Start:09-Dec-2015 Instruction Type:Patient Education Patient Instructions Indication:Cough Start:09-Dec-2015 Instruction Type:Provider Instructions for Treatment How to access health informa tion online Indication:Rash/skin eruption Start:23-Apr-2015 Instruction Type:Patient Education How to access health informa tion online - Detail Indication:Rash/skin eruption Start:23-Apr-2015 Instruction Type:Patient Education Patient Instructions Indication:Rash/skin eruption Start:23-Apr-2015 Instruction Type:Provider Instructions for Treatment Patient Instructions Indication:Rash/skin eruption Start:18-Mar-2015 Instruction Type:Provider Instructions for Treatment Patient Instructions Indication:Acute bronchitis Start:29-Oct-2014 Instruction Type:Provider Instructions for Treatment How to access health informa tion online Indication:GERD (gastroesophageal reflux disease) Start:10-Jul-2014 Instruction Type:Patient Education How to access health informa tion online - Detail Indication:GERD (gastroesophageal reflux disease) Start:10-Jul-2014 Instruction Type:Patient Education Patient Instructions Indication:GERD (gastroesophageal reflux disease) Start:10-Jul-2014 Instruction Type:Provider Instructions for Treatment Patient Instructions Indication:GERD (gastroesophageal reflux disease) Start:12-May-2013 Instruction Type:Provider Instructions for Treatment [facility]; [facility] Work Phone: Instructions* Name Dates Details Patient Instructions Indication:BMI 28.0-28.9,adult Start:18-Jun-2021 Instruction Type:Provider Instructions for Treatment How to Access Health Informa tion Online using Patient Portal and [employer]rd [employer] Apps Indication:BMI 28.0-28.9,adult Start:18-Jun-2021 Instruction Type:Patient Education How to Access Health Informa tion Online using Patient Portal and [employer]rd [employer] Apps Indication:Nonsmoker Start:23-Dec-2020 Instruction Type:Patient Education Patient Instructions Indication:Nonsmoker Start:23-Dec-2020 Instruction Type:Provider Instructions for Treatment How to Access Health Informa tion Online using Patient Portal and [employer]rd [employer] Apps Indication:Nonsmoker Start:11-Dec-2020 Instruction Type:Patient Education Patient Instructions Indication:Nonsmoker Start:11-Dec-2020 Instruction Type:Provider Instructions for Treatment How to access health informa tion online Indication:BMI 28.0-28.9,adult Start:18-Jul-2020 Instruction Type:Patient Education How to access health informa tion online - Detail Indication:BMI 28.0-28.9,adult Start:18-Jul-2020 Instruction Type:Patient Education Patient Instructions Indication:BMI 28.0-28.9,adult Start:18-Jul-2020 Instruction Type:Provider Instructions for Treatment How to access health informa tion online Indication:Nonsmoker Start:11-Jul-2020 Instruction Type:Patient Education How to access health informa tion online - Detail Indication:Nonsmoker Start:11-Jul-2020 Instruction Type:Patient Education Patient Instructions Indication:Nonsmoker Start:11-Jul-2020 Instruction Type:Provider Instructions for Treatment How to access health informa tion online Indication:BMI 27.0-27.9,adult Start:12-Jun-2020 Instruction Type:Patient Education How to access health informa tion online - Detail Indication:BMI 27.0-27.9,adult Start:12-Jun-2020 Instruction Type:Patient Education Patient Instructions Indication:BMI 27.0-27.9,adult Start:12-Jun-2020 Instruction Type:Provider Instructions for Treatment How to access health informa tion online Indication:BMI 27.0-27.9,adult Start:29-Apr-2020 Instruction Type:Patient Education How to access health informa tion online - Detail Indication:BMI 27.0-27.9,adult Start:29-Apr-2020 Instruction Type:Patient Education Patient Instructions Indication:BMI 27.0-27.9,adult Start:29-Apr-2020 Instruction Type:Provider Instructions for Treatment How to access health informa tion online Indication:Nonsmoker Start:21-Dec-2019 Instruction Type:Patient Education How to access health informa tion online - Detail Indication:Nonsmoker Start:21-Dec-2019 Instruction Type:Patient Education Patient Instructions Indication:Nonsmoker Start:21-Dec-2019 Instruction Type:Provider Instructions for Treatment How to access health informa tion online Indication:Nonsmoker Start:07-Dec-2019 Instruction Type:Patient Education How to access health informa tion online - Detail Indication:Nonsmoker Start:07-Dec-2019 Instruction Type:Patient Education Patient Instructions Indication:Nonsmoker Start:07-Dec-2019 Instruction Type:Provider Instructions for Treatment How to access health informa tion online Indication:BMI 27.0-27.9,adult Start:16-Nov-2019 Instruction Type:Patient Education How to access health informa tion online - Detail Indication:BMI 27.0-27.9,adult Start:16-Nov-2019 Instruction Type:Patient Education Patient Instructions Indication:BMI 27.0-27.9,adult Start:16-Nov-2019 Instruction Type:Provider Instructions for Treatment How to access health informa tion online Indication:BMI 28.0-28.9,adult Start:07-Sep-2019 Instruction Type:Patient Education How to access health informa tion online - Detail Indication:BMI 28.0-28.9,adult Start:07-Sep-2019 Instruction Type:Patient Education Patient Instructions Indication:Post-nasal drainage Start:07-Sep-2019 Instruction Type:Provider Instructions for Treatment How to access health informa tion online Indication:Hypertension, benign Start:17-May-2019 Instruction Type:Patient Education How to access health informa tion online - Detail Indication:Hypertension, benign Start:17-May-2019 Instruction Type:Patient Education Patient Instructions Indication:Hypertension, benign Start:17-May-2019 Instruction Type:Provider Instructions for Treatment How to access health informa tion online Indication:Nonsmoker Start:14-Nov-2018 Instruction Type:Patient Education How to access health informa tion online - Detail Indication:Nonsmoker Start:14-Nov-2018 Instruction Type:Patient Education Patient Instructions Indication:Nonsmoker Start:14-Nov-2018 Instruction Type:Provider Instructions for Treatment How to access health informa tion online Indication:Nonsmoker Start:14-Sep-2018 Instruction Type:Patient Education How to access health informa tion online - Detail Indication:Nonsmoker Start:14-Sep-2018 Instruction Type:Patient Education Patient Instructions Indication:Nonsmoker Start:14-Sep-2018 Instruction Type:Provider Instructions for Treatment How to access health informa tion online Indication:Nonsmoker Start:04-Jul-2018 Instruction Type:Patient Education Patient Instructions Indication:Nonsmoker Start:04-Jul-2018 Instruction Type:Provider Instructions for Treatment How to access health informa tion online Indication:BMI 27.0-27.9,adult Start:14-Jun-2018 Instruction Type:Patient Education How to access health informa tion online - Detail Indication:BMI 27.0-27.9,adult Start:14-Jun-2018 Instruction Type:Patient Education Patient Instructions Indication:BMI 27.0-27.9,adult Start:14-Jun-2018 Instruction Type:Provider Instructions for Treatment How to access health informa tion online Indication:Need for prophylactic vaccination and inoculation against influenza (Renamed from Need for immunization against influenza) Start:19-May-2018 Instruction Type:Patient Education How to access health informa tion online - Detail Indication:Need for prophylactic vaccination and inoculation against influenza (Renamed from Need for immunization against influenza) Start:19-May-2018 Instruction Type:Patient Education Patient Instructions Indication:Need for prophylactic vaccination and inoculation against influenza (Renamed from Need for immunization against influenza) Start:19-May-2018 Instruction Type:Provider Instructions for Treatment How to access health informa tion online Indication:Nonsmoker Start:16-Nov-2017 Instruction Type:Patient Education How to access health informa tion online - Detail Indication:Nonsmoker Start:16-Nov-2017 Instruction Type:Patient Education Patient Instructions Indication:Nonsmoker Start:16-Nov-2017 Instruction Type:Provider Instructions for Treatment How to access health informa tion online Indication:Nonsmoker Start:10-Nov-2017 Instruction Type:Patient Education How to access health informa tion online - Detail Indication:Nonsmoker Start:10-Nov-2017 Instruction Type:Patient Education Patient Instructions Indication:Nonsmoker Start:10-Nov-2017 Instruction Type:Provider Instructions for Treatment How to access health informa tion online Indication:Nonsmoker Start:02-Nov-2016 Instruction Type:Patient Education How to access health informa tion online - Detail Indication:Nonsmoker Start:02-Nov-2016 Instruction Type:Patient Education Patient Instructions Indication:Nonsmoker Start:02-Nov-2016 Instruction Type:Provider Instructions for Treatment How to access health informa tion online - Detail Indication:Bronchitis Start:08-Sep-2016 Instruction Type:Patient Education Patient Instructions Indication:Bronchitis Start:08-Sep-2016 Instruction Type:Provider Instructions for Treatment How to access health informa tion online Indication:Encounter for screening mammogram for breast cancer (Renamed from Encounter for screening mammogram for malignant neoplasm of breast) Start:19-May-2016 Instruction Type:Patient Education How to access health informa tion online - Detail Indication:Encounter for screening mammogram for breast cancer (Renamed from Encounter for screening mammogram for malignant neoplasm of breast) Start:19-May-2016 Instruction Type:Patient Education Patient Instructions Indication:Encounter for screening mammogram for breast cancer (Renamed from Encounter for screening mammogram for malignant neoplasm of breast) Start:19-May-2016 Instruction Type:Provider Instructions for Treatment Patient Instructions Indication:Acute bronchitis due to other specified organisms Start:07-May-2016 Instruction Type:Provider Instructions for Treatment How to access health informa tion online Indication:Cough Start:08-Apr-2016 Instruction Type:Patient Education How to access health informa tion online - Detail Indication:Cough Start:08-Apr-2016 Instruction Type:Patient Education Patient Instructions Indication:Cough Start:08-Apr-2016 Instruction Type:Provider Instructions for Treatment How to access health informa tion online Indication:Cough Start:31-Mar-2016 Instruction Type:Patient Education How to access health informa tion online - Detail Indication:Cough Start:31-Mar-2016 Instruction Type:Patient Education Patient Instructions Indication:Cough Start:31-Mar-2016 Instruction Type:Provider Instructions for Treatment How to access health informa tion online - Detail Indication:Cough Start:09-Dec-2015 Instruction Type:Patient Education How to access health informa tion online - Detail Indication:Cough Start:09-Dec-2015 Instruction Type:Patient Education How to access health informa tion online - Detail Indication:Cough Start:09-Dec-2015 Instruction Type:Patient Education Patient Instructions Indication:Cough Start:09-Dec-2015 Instruction Type:Provider Instructions for Treatment How to access health informa tion online Indication:Rash/skin eruption Start:23-Apr-2015 Instruction Type:Patient Education How to access health informa tion online - Detail Indication:Rash/skin eruption Start:23-Apr-2015 Instruction Type:Patient Education Patient Instructions Indication:Rash/skin eruption Start:23-Apr-2015 Instruction Type:Provider Instructions for Treatment Patient Instructions Indication:Rash/skin eruption Start:18-Mar-2015 Instruction Type:Provider Instructions for Treatment Patient Instructions Indication:Acute bronchitis Start:29-Oct-2014 Instruction Type:Provider Instructions for Treatment How to access health informa tion online Indication:GERD (gastroesophageal reflux disease) Start:10-Jul-2014 Instruction Type:Patient Education How to access health informa tion online - Detail Indication:GERD (gastroesophageal reflux disease) Start:10-Jul-2014 Instruction Type:Patient Education Patient Instructions Indication:GERD (gastroesophageal reflux disease) Start:10-Jul-2014 Instruction Type:Provider Instructions for Treatment Patient Instructions Indication:GERD (gastroesophageal reflux disease) Start:12-May-2013 Instruction Type:Provider Instructions for Treatment [facility]; [facility] Work Phone: Instructions* Name Dates Details Patient Instructions Indication:Nonsmoker Start:01-Jan-2022 Instruction Type:Provider Instructions for Treatment How to Access Health Informa tion Online using Patient Portal and [employer]rd [employer] Apps Indication:Nonsmoker Start:01-Jan-2022 Instruction Type:Patient Education Patient Instructions Indication:BMI 26.0-26.9,adult Start:24-Dec-2021 Instruction Type:Provider Instructions for Treatment How to Access Health Informa tion Online using Patient Portal and [employer]rd [employer] Apps Indication:BMI 26.0-26.9,adult Start:24-Dec-2021 Instruction Type:Patient Education Patient Instructions Indication:BMI 28.0-28.9,adult Start:18-Jun-2021 Instruction Type:Provider Instructions for Treatment How to Access Health Informa tion Online using Patient Portal and [employer]rd [employer] Apps Indication:BMI 28.0-28.9,adult Start:18-Jun-2021 Instruction Type:Patient Education How to Access Health Informa tion Online using Patient Portal and [employer]rd [employer] Apps Indication:Nonsmoker Start:23-Dec-2020 Instruction Type:Patient Education Patient Instructions Indication:Nonsmoker Start:23-Dec-2020 Instruction Type:Provider Instructions for Treatment How to Access Health Informa tion Online using Patient Portal and [employer]rd [employer] Apps Indication:Nonsmoker Start:11-Dec-2020 Instruction Type:Patient Education Patient Instructions Indication:Nonsmoker Start:11-Dec-2020 Instruction Type:Provider Instructions for Treatment How to access health informa tion online Indication:BMI 28.0-28.9,adult Start:18-Jul-2020 Instruction Type:Patient Education How to access health informa tion online - Detail Indication:BMI 28.0-28.9,adult Start:18-Jul-2020 Instruction Type:Patient Education Patient Instructions Indication:BMI 28.0-28.9,adult Start:18-Jul-2020 Instruction Type:Provider Instructions for Treatment How to access health informa tion online Indication:Nonsmoker Start:11-Jul-2020 Instruction Type:Patient Education How to access health informa tion online - Detail Indication:Nonsmoker Start:11-Jul-2020 Instruction Type:Patient Education Patient Instructions Indication:Nonsmoker Start:11-Jul-2020 Instruction Type:Provider Instructions for Treatment How to access health informa tion online Indication:BMI 27.0-27.9,adult Start:12-Jun-2020 Instruction Type:Patient Education How to access health informa tion online - Detail Indication:BMI 27.0-27.9,adult Start:12-Jun-2020 Instruction Type:Patient Education Patient Instructions Indication:BMI 27.0-27.9,adult Start:12-Jun-2020 Instruction Type:Provider Instructions for Treatment How to access health informa tion online Indication:BMI 27.0-27.9,adult Start:29-Apr-2020 Instruction Type:Patient Education How to access health informa tion online - Detail Indication:BMI 27.0-27.9,adult Start:29-Apr-2020 Instruction Type:Patient Education Patient Instructions Indication:BMI 27.0-27.9,adult Start:29-Apr-2020 Instruction Type:Provider Instructions for Treatment How to access health informa tion online Indication:Nonsmoker Start:21-Dec-2019 Instruction Type:Patient Education How to access health informa tion online - Detail Indication:Nonsmoker Start:21-Dec-2019 Instruction Type:Patient Education Patient Instructions Indication:Nonsmoker Start:21-Dec-2019 Instruction Type:Provider Instructions for Treatment How to access health informa tion online Indication:Nonsmoker Start:07-Dec-2019 Instruction Type:Patient Education How to access health informa tion online - Detail Indication:Nonsmoker Start:07-Dec-2019 Instruction Type:Patient Education Patient Instructions Indication:Nonsmoker Start:07-Dec-2019 Instruction Type:Provider Instructions for Treatment How to access health informa tion online Indication:BMI 27.0-27.9,adult Start:16-Nov-2019 Instruction Type:Patient Education How to access health informa tion online - Detail Indication:BMI 27.0-27.9,adult Start:16-Nov-2019 Instruction Type:Patient Education Patient Instructions Indication:BMI 27.0-27.9,adult Start:16-Nov-2019 Instruction Type:Provider Instructions for Treatment How to access health informa tion online Indication:BMI 28.0-28.9,adult Start:07-Sep-2019 Instruction Type:Patient Education How to access health informa tion online - Detail Indication:BMI 28.0-28.9,adult Start:07-Sep-2019 Instruction Type:Patient Education Patient Instructions Indication:Post-nasal drainage Start:07-Sep-2019 Instruction Type:Provider Instructions for Treatment How to access health informa tion online Indication:Hypertension, benign Start:17-May-2019 Instruction Type:Patient Education How to access health informa tion online - Detail Indication:Hypertension, benign Start:17-May-2019 Instruction Type:Patient Education Patient Instructions Indication:Hypertension, benign Start:17-May-2019 Instruction Type:Provider Instructions for Treatment How to access health informa tion online Indication:Nonsmoker Start:14-Nov-2018 Instruction Type:Patient Education How to access health informa tion online - Detail Indication:Nonsmoker Start:14-Nov-2018 Instruction Type:Patient Education Patient Instructions Indication:Nonsmoker Start:14-Nov-2018 Instruction Type:Provider Instructions for Treatment How to access health informa tion online Indication:Nonsmoker Start:14-Sep-2018 Instruction Type:Patient Education How to access health informa tion online - Detail Indication:Nonsmoker Start:14-Sep-2018 Instruction Type:Patient Education Patient Instructions Indication:Nonsmoker Start:14-Sep-2018 Instruction Type:Provider Instructions for Treatment How to access health informa tion online Indication:Nonsmoker Start:04-Jul-2018 Instruction Type:Patient Education Patient Instructions Indication:Nonsmoker Start:04-Jul-2018 Instruction Type:Provider Instructions for Treatment How to access health informa tion online Indication:BMI 27.0-27.9,adult Start:14-Jun-2018 Instruction Type:Patient Education How to access health informa tion online - Detail Indication:BMI 27.0-27.9,adult Start:14-Jun-2018 Instruction Type:Patient Education Patient Instructions Indication:BMI 27.0-27.9,adult Start:14-Jun-2018 Instruction Type:Provider Instructions for Treatment How to access health informa tion online Indication:Need for prophylactic vaccination and inoculation against influenza (Renamed from Need for immunization against influenza) Start:19-May-2018 Instruction Type:Patient Education How to access health informa tion online - Detail Indication:Need for prophylactic vaccination and inoculation against influenza (Renamed from Need for immunization against influenza) Start:19-May-2018 Instruction Type:Patient Education Patient Instructions Indication:Need for prophylactic vaccination and inoculation against influenza (Renamed from Need for immunization against influenza) Start:19-May-2018 Instruction Type:Provider Instructions for Treatment How to access health informa tion online Indication:Nonsmoker Start:16-Nov-2017 Instruction Type:Patient Education How to access health informa tion online - Detail Indication:Nonsmoker Start:16-Nov-2017 Instruction Type:Patient Education Patient Instructions Indication:Nonsmoker Start:16-Nov-2017 Instruction Type:Provider Instructions for Treatment How to access health informa tion online Indication:Nonsmoker Start:10-Nov-2017 Instruction Type:Patient Education How to access health informa tion online - Detail Indication:Nonsmoker Start:10-Nov-2017 Instruction Type:Patient Education Patient Instructions Indication:Nonsmoker Start:10-Nov-2017 Instruction Type:Provider Instructions for Treatment How to access health informa tion online Indication:Nonsmoker Start:02-Nov-2016 Instruction Type:Patient Education How to access health informa tion online - Detail Indication:Nonsmoker Start:02-Nov-2016 Instruction Type:Patient Education Patient Instructions Indication:Nonsmoker Start:02-Nov-2016 Instruction Type:Provider Instructions for Treatment How to access health informa tion online - Detail Indication:Bronchitis Start:08-Sep-2016 Instruction Type:Patient Education Patient Instructions Indication:Bronchitis Start:08-Sep-2016 Instruction Type:Provider Instructions for Treatment How to access health informa tion online Indication:Encounter for screening mammogram for breast cancer (Renamed from Encounter for screening mammogram for malignant neoplasm of breast) Start:19-May-2016 Instruction Type:Patient Education How to access health informa tion online - Detail Indication:Encounter for screening mammogram for breast cancer (Renamed from Encounter for screening mammogram for malignant neoplasm of breast) Start:19-May-2016 Instruction Type:Patient Education Patient Instructions Indication:Encounter for screening mammogram for breast cancer (Renamed from Encounter for screening mammogram for malignant neoplasm of breast) Start:19-May-2016 Instruction Type:Provider Instructions for Treatment Patient Instructions Indication:Acute bronchitis due to other specified organisms Start:07-May-2016 Instruction Type:Provider Instructions for Treatment How to access health informa tion online Indication:Cough Start:08-Apr-2016 Instruction Type:Patient Education How to access health informa tion online - Detail Indication:Cough Start:08-Apr-2016 Instruction Type:Patient Education Patient Instructions Indication:Cough Start:08-Apr-2016 Instruction Type:Provider Instructions for Treatment How to access health informa tion online Indication:Cough Start:31-Mar-2016 Instruction Type:Patient Education How to access health informa tion online - Detail Indication:Cough Start:31-Mar-2016 Instruction Type:Patient Education Patient Instructions Indication:Cough Start:31-Mar-2016 Instruction Type:Provider Instructions for Treatment How to access health informa tion online - Detail Indication:Cough Start:09-Dec-2015 Instruction Type:Patient Education How to access health informa tion online - Detail Indication:Cough Start:09-Dec-2015 Instruction Type:Patient Education How to access health informa tion online - Detail Indication:Cough Start:09-Dec-2015 Instruction Type:Patient Education Patient Instructions Indication:Cough Start:09-Dec-2015 Instruction Type:Provider Instructions for Treatment How to access health informa tion online Indication:Rash/skin eruption Start:23-Apr-2015 Instruction Type:Patient Education How to access health informa tion online - Detail Indication:Rash/skin eruption Start:23-Apr-2015 Instruction Type:Patient Education Patient Instructions Indication:Rash/skin eruption Start:23-Apr-2015 Instruction Type:Provider Instructions for Treatment Patient Instructions Indication:Rash/skin eruption Start:18-Mar-2015 Instruction Type:Provider Instructions for Treatment Patient Instructions Indication:Acute bronchitis Start:29-Oct-2014 Instruction Type:Provider Instructions for Treatment How to access health informa tion online Indication:GERD (gastroesophageal reflux disease) Start:10-Jul-2014 Instruction Type:Patient Education How to access health informa tion online - Detail Indication:GERD (gastroesophageal reflux disease) Start:10-Jul-2014 Instruction Type:Patient Education Patient Instructions Indication:GERD (gastroesophageal reflux disease) Start:10-Jul-2014 Instruction Type:Provider Instructions for Treatment Patient Instructions Indication:GERD (gastroesophageal reflux disease) Start:12-May-2013 Instruction Type:Provider Instructions for Treatment [facility]; [facility] Work Phone: Instructions* Name Dates Details Patient Instructions Indication:Nonsmoker Start:01-Jan-2022 Instruction Type:Provider Instructions for Treatment How to Access Health Informa tion Online using Patient Portal and [employer] Apps Indication:Nonsmoker Start:01-Jan-2022 Instruction Type:Patient Education Patient Instructions Indication:BMI 26.0-26.9,adult Start:24-Dec-2021 Instruction Type:Provider Instructions for Treatment How to Access Health Informa tion Online using Patient Portal and [employer] Apps Indication:BMI 26.0-26.9,adult Start:24-Dec-2021 Instruction Type:Patient Education Patient Instructions Indication:BMI 28.0-28.9,adult Start:18-Jun-2021 Instruction Type:Provider Instructions for Treatment How to Access Health Informa tion Online using Patient Portal and [employer] Apps Indication:BMI 28.0-28.9,adult Start:18-Jun-2021 Instruction Type:Patient Education How to Access Health Informa tion Online using Patient Portal and [employer] Apps Indication:Nonsmoker Start:23-Dec-2020 Instruction Type:Patient Education Patient Instructions Indication:Nonsmoker Start:23-Dec-2020 Instruction Type:Provider Instructions for Treatment How to Access Health Informa tion Online using Patient Portal and [employer] Apps Indication:Nonsmoker Start:11-Dec-2020 Instruction Type:Patient Education Patient Instructions Indication:Nonsmoker Start:11-Dec-2020 Instruction Type:Provider Instructions for Treatment How to access health informa tion online Indication:BMI 28.0-28.9,adult Start:18-Jul-2020 Instruction Type:Patient Education How to access health informa tion online - Detail Indication:BMI 28.0-28.9,adult Start:18-Jul-2020 Instruction Type:Patient Education Patient Instructions Indication:BMI 28.0-28.9,adult Start:18-Jul-2020 Instruction Type:Provider Instructions for Treatment How to access health informa tion online Indication:Nonsmoker Start:11-Jul-2020 Instruction Type:Patient Education How to access health informa tion online - Detail Indication:Nonsmoker Start:11-Jul-2020 Instruction Type:Patient Education Patient Instructions Indication:Nonsmoker Start:11-Jul-2020 Instruction Type:Provider Instructions for Treatment How to access health informa tion online Indication:BMI 27.0-27.9,adult Start:12-Jun-2020 Instruction Type:Patient Education How to access health informa tion online - Detail Indication:BMI 27.0-27.9,adult Start:12-Jun-2020 Instruction Type:Patient Education Patient Instructions Indication:BMI 27.0-27.9,adult Start:12-Jun-2020 Instruction Type:Provider Instructions for Treatment How to access health informa tion online Indication:BMI 27.0-27.9,adult Start:29-Apr-2020 Instruction Type:Patient Education How to access health informa tion online - Detail Indication:BMI 27.0-27.9,adult Start:29-Apr-2020 Instruction Type:Patient Education Patient Instructions Indication:BMI 27.0-27.9,adult Start:29-Apr-2020 Instruction Type:Provider Instructions for Treatment How to access health informa tion online Indication:Nonsmoker Start:21-Dec-2019 Instruction Type:Patient Education How to access health informa tion online - Detail Indication:Nonsmoker Start:21-Dec-2019 Instruction Type:Patient Education Patient Instructions Indication:Nonsmoker Start:21-Dec-2019 Instruction Type:Provider Instructions for Treatment How to access health informa tion online Indication:Nonsmoker Start:07-Dec-2019 Instruction Type:Patient Education How to access health informa tion online - Detail Indication:Nonsmoker Start:07-Dec-2019 Instruction Type:Patient Education Patient Instructions Indication:Nonsmoker Start:07-Dec-2019 Instruction Type:Provider Instructions for Treatment How to access health informa tion online Indication:BMI 27.0-27.9,adult Start:16-Nov-2019 Instruction Type:Patient Education How to access health informa tion online - Detail Indication:BMI 27.0-27.9,adult Start:16-Nov-2019 Instruction Type:Patient Education Patient Instructions Indication:BMI 27.0-27.9,adult Start:16-Nov-2019 Instruction Type:Provider Instructions for Treatment How to access health informa tion online Indication:BMI 28.0-28.9,adult Start:07-Sep-2019 Instruction Type:Patient Education How to access health informa tion online - Detail Indication:BMI 28.0-28.9,adult Start:07-Sep-2019 Instruction Type:Patient Education Patient Instructions Indication:Post-nasal drainage Start:07-Sep-2019 Instruction Type:Provider Instructions for Treatment How to access health informa tion online Indication:Hypertension, benign Start:17-May-2019 Instruction Type:Patient Education How to access health informa tion online - Detail Indication:Hypertension, benign Start:17-May-2019 Instruction Type:Patient Education Patient Instructions Indication:Hypertension, benign Start:17-May-2019 Instruction Type:Provider Instructions for Treatment How to access health informa tion online Indication:Nonsmoker Start:14-Nov-2018 Instruction Type:Patient Education How to access health informa tion online - Detail Indication:Nonsmoker Start:14-Nov-2018 Instruction Type:Patient Education Patient Instructions Indication:Nonsmoker Start:14-Nov-2018 Instruction Type:Provider Instructions for Treatment How to access health informa tion online Indication:Nonsmoker Start:14-Sep-2018 Instruction Type:Patient Education How to access health informa tion online - Detail Indication:Nonsmoker Start:14-Sep-2018 Instruction Type:Patient Education Patient Instructions Indication:Nonsmoker Start:14-Sep-2018 Instruction Type:Provider Instructions for Treatment How to access health informa tion online Indication:Nonsmoker Start:04-Jul-2018 Instruction Type:Patient Education Patient Instructions Indication:Nonsmoker Start:04-Jul-2018 Instruction Type:Provider Instructions for Treatment How to access health informa tion online Indication:BMI 27.0-27.9,adult Start:14-Jun-2018 Instruction Type:Patient Education How to access health informa tion online - Detail Indication:BMI 27.0-27.9,adult Start:14-Jun-2018 Instruction Type:Patient Education Patient Instructions Indication:BMI 27.0-27.9,adult Start:14-Jun-2018 Instruction Type:Provider Instructions for Treatment How to access health informa tion online Indication:Need for prophylactic vaccination and inoculation against influenza (Renamed from Need for immunization against influenza) Start:19-May-2018 Instruction Type:Patient Education How to access health informa tion online - Detail Indication:Need for prophylactic vaccination and inoculation against influenza (Renamed from Need for immunization against influenza) Start:19-May-2018 Instruction Type:Patient Education Patient Instructions Indication:Need for prophylactic vaccination and inoculation against influenza (Renamed from Need for immunization against influenza) Start:19-May-2018 Instruction Type:Provider Instructions for Treatment How to access health informa tion online Indication:Nonsmoker Start:16-Nov-2017 Instruction Type:Patient Education How to access health informa tion online - Detail Indication:Nonsmoker Start:16-Nov-2017 Instruction Type:Patient Education Patient Instructions Indication:Nonsmoker Start:16-Nov-2017 Instruction Type:Provider Instructions for Treatment How to access health informa tion online Indication:Nonsmoker Start:10-Nov-2017 Instruction Type:Patient Education How to access health informa tion online - Detail Indication:Nonsmoker Start:10-Nov-2017 Instruction Type:Patient Education Patient Instructions Indication:Nonsmoker Start:10-Nov-2017 Instruction Type:Provider Instructions for Treatment How to access health informa tion online Indication:Nonsmoker Start:02-Nov-2016 Instruction Type:Patient Education How to access health informa tion online - Detail Indication:Nonsmoker Start:02-Nov-2016 Instruction Type:Patient Education Patient Instructions Indication:Nonsmoker Start:02-Nov-2016 Instruction Type:Provider Instructions for Treatment How to access health informa tion online - Detail Indication:Bronchitis Start:08-Sep-2016 Instruction Type:Patient Education Patient Instructions Indication:Bronchitis Start:08-Sep-2016 Instruction Type:Provider Instructions for Treatment How to access health informa tion online Indication:Encounter for screening mammogram for breast cancer (Renamed from Encounter for screening mammogram for malignant neoplasm of breast) Start:19-May-2016 Instruction Type:Patient Education How to access health informa tion online - Detail Indication:Encounter for screening mammogram for breast cancer (Renamed from Encounter for screening mammogram for malignant neoplasm of breast) Start:19-May-2016 Instruction Type:Patient Education Patient Instructions Indication:Encounter for screening mammogram for breast cancer (Renamed from Encounter for screening mammogram for malignant neoplasm of breast) Start:19-May-2016 Instruction Type:Provider Instructions for Treatment Patient Instructions Indication:Acute bronchitis due to other specified organisms Start:07-May-2016 Instruction Type:Provider Instructions for Treatment How to access health informa tion online Indication:Cough Start:08-Apr-2016 Instruction Type:Patient Education How to access health informa tion online - Detail Indication:Cough Start:08-Apr-2016 Instruction Type:Patient Education Patient Instructions Indication:Cough Start:08-Apr-2016 Instruction Type:Provider Instructions for Treatment How to access health informa tion online Indication:Cough Start:31-Mar-2016 Instruction Type:Patient Education How to access health informa tion online - Detail Indication:Cough Start:31-Mar-2016 Instruction Type:Patient Education Patient Instructions Indication:Cough Start:31-Mar-2016 Instruction Type:Provider Instructions for Treatment How to access health informa tion online - Detail Indication:Cough Start:09-Dec-2015 Instruction Type:Patient Education How to access health informa tion online - Detail Indication:Cough Start:09-Dec-2015 Instruction Type:Patient Education How to access health informa tion online - Detail Indication:Cough Start:09-Dec-2015 Instruction Type:Patient Education Patient Instructions Indication:Cough Start:09-Dec-2015 Instruction Type:Provider Instructions for Treatment How to access health informa tion online Indication:Rash/skin eruption Start:23-Apr-2015 Instruction Type:Patient Education How to access health informa tion online - Detail Indication:Rash/skin eruption Start:23-Apr-2015 Instruction Type:Patient Education Patient Instructions Indication:Rash/skin eruption Start:23-Apr-2015 Instruction Type:Provider Instructions for Treatment Patient Instructions Indication:Rash/skin eruption Start:18-Mar-2015 Instruction Type:Provider Instructions for Treatment Patient Instructions Indication:Acute bronchitis Start:29-Oct-2014 Instruction Type:Provider Instructions for Treatment How to access health informa tion online Indication:GERD (gastroesophageal reflux disease) Start:10-Jul-2014 Instruction Type:Patient Education How to access health informa tion online - Detail Indication:GERD (gastroesophageal reflux disease) Start:10-Jul-2014 Instruction Type:Patient Education Patient Instructions Indication:GERD (gastroesophageal reflux disease) Start:10-Jul-2014 Instruction Type:Provider Instructions for Treatment Patient Instructions Indication:GERD (gastroesophageal reflux disease) Start:12-May-2013 Instruction Type:Provider Instructions for Treatment [facility]; [facility] Work Phone: Instructions* Name Dates Details Patient Instructions Indication:Nonsmoker Start:01-Jan-2022 Instruction Type:Provider Instructions for Treatment How to Access Health Informa tion Online using Patient Portal and [employer] Apps Indication:Nonsmoker Start:01-Jan-2022 Instruction Type:Patient Education Patient Instructions Indication:BMI 26.0-26.9,adult Start:24-Dec-2021 Instruction Type:Provider Instructions for Treatment How to Access Health Informa tion Online using Patient Portal and [employer] Apps Indication:BMI 26.0-26.9,adult Start:24-Dec-2021 Instruction Type:Patient Education Patient Instructions Indication:BMI 28.0-28.9,adult Start:18-Jun-2021 Instruction Type:Provider Instructions for Treatment How to Access Health Informa tion Online using Patient Portal and [employer]rd [employer] Apps Indication:BMI 28.0-28.9,adult Start:18-Jun-2021 Instruction Type:Patient Education How to Access Health Informa tion Online using Patient Portal and [employer] Apps Indication:Nonsmoker Start:23-Dec-2020 Instruction Type:Patient Education Patient Instructions Indication:Nonsmoker Start:23-Dec-2020 Instruction Type:Provider Instructions for Treatment How to Access Health Informa tion Online using Patient Portal and [employer]rd [employer] Apps Indication:Nonsmoker Start:11-Dec-2020 Instruction Type:Patient Education Patient Instructions Indication:Nonsmoker Start:11-Dec-2020 Instruction Type:Provider Instructions for Treatment How to access health informa tion online Indication:BMI 28.0-28.9,adult Start:18-Jul-2020 Instruction Type:Patient Education How to access health informa tion online - Detail Indication:BMI 28.0-28.9,adult Start:18-Jul-2020 Instruction Type:Patient Education Patient Instructions Indication:BMI 28.0-28.9,adult Start:18-Jul-2020 Instruction Type:Provider Instructions for Treatment How to access health informa tion online Indication:Nonsmoker Start:11-Jul-2020 Instruction Type:Patient Education How to access health informa tion online - Detail Indication:Nonsmoker Start:11-Jul-2020 Instruction Type:Patient Education Patient Instructions Indication:Nonsmoker Start:11-Jul-2020 Instruction Type:Provider Instructions for Treatment How to access health informa tion online Indication:BMI 27.0-27.9,adult Start:12-Jun-2020 Instruction Type:Patient Education How to access health informa tion online - Detail Indication:BMI 27.0-27.9,adult Start:12-Jun-2020 Instruction Type:Patient Education Patient Instructions Indication:BMI 27.0-27.9,adult Start:12-Jun-2020 Instruction Type:Provider Instructions for Treatment How to access health informa tion online Indication:BMI 27.0-27.9,adult Start:29-Apr-2020 Instruction Type:Patient Education How to access health informa tion online - Detail Indication:BMI 27.0-27.9,adult Start:29-Apr-2020 Instruction Type:Patient Education Patient Instructions Indication:BMI 27.0-27.9,adult Start:29-Apr-2020 Instruction Type:Provider Instructions for Treatment How to access health informa tion online Indication:Nonsmoker Start:21-Dec-2019 Instruction Type:Patient Education How to access health informa tion online - Detail Indication:Nonsmoker Start:21-Dec-2019 Instruction Type:Patient Education Patient Instructions Indication:Nonsmoker Start:21-Dec-2019 Instruction Type:Provider Instructions for Treatment How to access health informa tion online Indication:Nonsmoker Start:07-Dec-2019 Instruction Type:Patient Education How to access health informa tion online - Detail Indication:Nonsmoker Start:07-Dec-2019 Instruction Type:Patient Education Patient Instructions Indication:Nonsmoker Start:07-Dec-2019 Instruction Type:Provider Instructions for Treatment How to access health informa tion online Indication:BMI 27.0-27.9,adult Start:16-Nov-2019 Instruction Type:Patient Education How to access health informa tion online - Detail Indication:BMI 27.0-27.9,adult Start:16-Nov-2019 Instruction Type:Patient Education Patient Instructions Indication:BMI 27.0-27.9,adult Start:16-Nov-2019 Instruction Type:Provider Instructions for Treatment How to access health informa tion online Indication:BMI 28.0-28.9,adult Start:07-Sep-2019 Instruction Type:Patient Education How to access health informa tion online - Detail Indication:BMI 28.0-28.9,adult Start:07-Sep-2019 Instruction Type:Patient Education Patient Instructions Indication:Post-nasal drainage Start:07-Sep-2019 Instruction Type:Provider Instructions for Treatment How to access health informa tion online Indication:Hypertension, benign Start:17-May-2019 Instruction Type:Patient Education How to access health informa tion online - Detail Indication:Hypertension, benign Start:17-May-2019 Instruction Type:Patient Education Patient Instructions Indication:Hypertension, benign Start:17-May-2019 Instruction Type:Provider Instructions for Treatment How to access health informa tion online Indication:Nonsmoker Start:14-Nov-2018 Instruction Type:Patient Education How to access health informa tion online - Detail Indication:Nonsmoker Start:14-Nov-2018 Instruction Type:Patient Education Patient Instructions Indication:Nonsmoker Start:14-Nov-2018 Instruction Type:Provider Instructions for Treatment How to access health informa tion online Indication:Nonsmoker Start:14-Sep-2018 Instruction Type:Patient Education How to access health informa tion online - Detail Indication:Nonsmoker Start:14-Sep-2018 Instruction Type:Patient Education Patient Instructions Indication:Nonsmoker Start:14-Sep-2018 Instruction Type:Provider Instructions for Treatment How to access health informa tion online Indication:Nonsmoker Start:04-Jul-2018 Instruction Type:Patient Education Patient Instructions Indication:Nonsmoker Start:04-Jul-2018 Instruction Type:Provider Instructions for Treatment How to access health informa tion online Indication:BMI 27.0-27.9,adult Start:14-Jun-2018 Instruction Type:Patient Education How to access health informa tion online - Detail Indication:BMI 27.0-27.9,adult Start:14-Jun-2018 Instruction Type:Patient Education Patient Instructions Indication:BMI 27.0-27.9,adult Start:14-Jun-2018 Instruction Type:Provider Instructions for Treatment How to access health informa tion online Indication:Need for prophylactic vaccination and inoculation against influenza (Renamed from Need for immunization against influenza) Start:19-May-2018 Instruction Type:Patient Education How to access health informa tion online - Detail Indication:Need for prophylactic vaccination and inoculation against influenza (Renamed from Need for immunization against influenza) Start:19-May-2018 Instruction Type:Patient Education Patient Instructions Indication:Need for prophylactic vaccination and inoculation against influenza (Renamed from Need for immunization against influenza) Start:19-May-2018 Instruction Type:Provider Instructions for Treatment How to access health informa tion online Indication:Nonsmoker Start:16-Nov-2017 Instruction Type:Patient Education How to access health informa tion online - Detail Indication:Nonsmoker Start:16-Nov-2017 Instruction Type:Patient Education Patient Instructions Indication:Nonsmoker Start:16-Nov-2017 Instruction Type:Provider Instructions for Treatment How to access health informa tion online Indication:Nonsmoker Start:10-Nov-2017 Instruction Type:Patient Education How to access health informa tion online - Detail Indication:Nonsmoker Start:10-Nov-2017 Instruction Type:Patient Education Patient Instructions Indication:Nonsmoker Start:10-Nov-2017 Instruction Type:Provider Instructions for Treatment How to access health informa tion online Indication:Nonsmoker Start:02-Nov-2016 Instruction Type:Patient Education How to access health informa tion online - Detail Indication:Nonsmoker Start:02-Nov-2016 Instruction Type:Patient Education Patient Instructions Indication:Nonsmoker Start:02-Nov-2016 Instruction Type:Provider Instructions for Treatment How to access health informa tion online - Detail Indication:Bronchitis Start:08-Sep-2016 Instruction Type:Patient Education Patient Instructions Indication:Bronchitis Start:08-Sep-2016 Instruction Type:Provider Instructions for Treatment How to access health informa tion online Indication:Encounter for screening mammogram for breast cancer (Renamed from Encounter for screening mammogram for malignant neoplasm of breast) Start:19-May-2016 Instruction Type:Patient Education How to access health informa tion online - Detail Indication:Encounter for screening mammogram for breast cancer (Renamed from Encounter for screening mammogram for malignant neoplasm of breast) Start:19-May-2016 Instruction Type:Patient Education Patient Instructions Indication:Encounter for screening mammogram for breast cancer (Renamed from Encounter for screening mammogram for malignant neoplasm of breast) Start:19-May-2016 Instruction Type:Provider Instructions for Treatment Patient Instructions Indication:Acute bronchitis due to other specified organisms Start:07-May-2016 Instruction Type:Provider Instructions for Treatment How to access health informa tion online Indication:Cough Start:08-Apr-2016 Instruction Type:Patient Education How to access health informa tion online - Detail Indication:Cough Start:08-Apr-2016 Instruction Type:Patient Education Patient Instructions Indication:Cough Start:08-Apr-2016 Instruction Type:Provider Instructions for Treatment How to access health informa tion online Indication:Cough Start:31-Mar-2016 Instruction Type:Patient Education How to access health informa tion online - Detail Indication:Cough Start:31-Mar-2016 Instruction Type:Patient Education Patient Instructions Indication:Cough Start:31-Mar-2016 Instruction Type:Provider Instructions for Treatment How to access health informa tion online - Detail Indication:Cough Start:09-Dec-2015 Instruction Type:Patient Education How to access health informa tion online - Detail Indication:Cough Start:09-Dec-2015 Instruction Type:Patient Education How to access health informa tion online - Detail Indication:Cough Start:09-Dec-2015 Instruction Type:Patient Education Patient Instructions Indication:Cough Start:09-Dec-2015 Instruction Type:Provider Instructions for Treatment How to access health informa tion online Indication:Rash/skin eruption Start:23-Apr-2015 Instruction Type:Patient Education How to access health informa tion online - Detail Indication:Rash/skin eruption Start:23-Apr-2015 Instruction Type:Patient Education Patient Instructions Indication:Rash/skin eruption Start:23-Apr-2015 Instruction Type:Provider Instructions for Treatment Patient Instructions Indication:Rash/skin eruption Start:18-Mar-2015 Instruction Type:Provider Instructions for Treatment Patient Instructions Indication:Acute bronchitis Start:29-Oct-2014 Instruction Type:Provider Instructions for Treatment How to access health informa tion online Indication:GERD (gastroesophageal reflux disease) Start:10-Jul-2014 Instruction Type:Patient Education How to access health informa tion online - Detail Indication:GERD (gastroesophageal reflux disease) Start:10-Jul-2014 Instruction Type:Patient Education Patient Instructions Indication:GERD (gastroesophageal reflux disease) Start:10-Jul-2014 Instruction Type:Provider Instructions for Treatment Patient Instructions Indication:GERD (gastroesophageal reflux disease) Start:12-May-2013 Instruction Type:Provider Instructions for Treatment [facility] Work Phone: Instructions* Name Dates Details Patient Instructions Indication:Black tarry stools Start:13-Mar-2022 Instruction Type:Provider Instructions for Treatment Patient Instructions Indication:Nonsmoker Start:01-Jan-2022 Instruction Type:Provider Instructions for Treatment How to Access Health Informa tion Online using Patient Portal and [employer] Apps Indication:Nonsmoker Start:01-Jan-2022 Instruction Type:Patient Education Patient Instructions Indication:BMI 26.0-26.9,adult Start:24-Dec-2021 Instruction Type:Provider Instructions for Treatment How to Access Health Informa tion Online using Patient Portal and [employer] Apps Indication:BMI 26.0-26.9,adult Start:24-Dec-2021 Instruction Type:Patient Education Patient Instructions Indication:BMI 28.0-28.9,adult Start:18-Jun-2021 Instruction Type:Provider Instructions for Treatment How to Access Health Informa tion Online using Patient Portal and [employer] Apps Indication:BMI 28.0-28.9,adult Start:18-Jun-2021 Instruction Type:Patient Education How to Access Health Informa tion Online using Patient Portal and [employer]rd [employer] Apps Indication:Nonsmoker Start:23-Dec-2020 Instruction Type:Patient Education Patient Instructions Indication:Nonsmoker Start:23-Dec-2020 Instruction Type:Provider Instructions for Treatment How to Access Health Informa tion Online using Patient Portal and [employer]rd [employer] Apps Indication:Nonsmoker Start:11-Dec-2020 Instruction Type:Patient Education Patient Instructions Indication:Nonsmoker Start:11-Dec-2020 Instruction Type:Provider Instructions for Treatment How to access health informa tion online Indication:BMI 28.0-28.9,adult Start:18-Jul-2020 Instruction Type:Patient Education How to access health informa tion online - Detail Indication:BMI 28.0-28.9,adult Start:18-Jul-2020 Instruction Type:Patient Education Patient Instructions Indication:BMI 28.0-28.9,adult Start:18-Jul-2020 Instruction Type:Provider Instructions for Treatment How to access health informa tion online Indication:Nonsmoker Start:11-Jul-2020 Instruction Type:Patient Education How to access health informa tion online - Detail Indication:Nonsmoker Start:11-Jul-2020 Instruction Type:Patient Education Patient Instructions Indication:Nonsmoker Start:11-Jul-2020 Instruction Type:Provider Instructions for Treatment How to access health informa tion online Indication:BMI 27.0-27.9,adult Start:12-Jun-2020 Instruction Type:Patient Education How to access health informa tion online - Detail Indication:BMI 27.0-27.9,adult Start:12-Jun-2020 Instruction Type:Patient Education Patient Instructions Indication:BMI 27.0-27.9,adult Start:12-Jun-2020 Instruction Type:Provider Instructions for Treatment How to access health informa tion online Indication:BMI 27.0-27.9,adult Start:29-Apr-2020 Instruction Type:Patient Education How to access health informa tion online - Detail Indication:BMI 27.0-27.9,adult Start:29-Apr-2020 Instruction Type:Patient Education Patient Instructions Indication:BMI 27.0-27.9,adult Start:29-Apr-2020 Instruction Type:Provider Instructions for Treatment How to access health informa tion online Indication:Nonsmoker Start:21-Dec-2019 Instruction Type:Patient Education How to access health informa tion online - Detail Indication:Nonsmoker Start:21-Dec-2019 Instruction Type:Patient Education Patient Instructions Indication:Nonsmoker Start:21-Dec-2019 Instruction Type:Provider Instructions for Treatment How to access health informa tion online Indication:Nonsmoker Start:07-Dec-2019 Instruction Type:Patient Education How to access health informa tion online - Detail Indication:Nonsmoker Start:07-Dec-2019 Instruction Type:Patient Education Patient Instructions Indication:Nonsmoker Start:07-Dec-2019 Instruction Type:Provider Instructions for Treatment How to access health informa tion online Indication:BMI 27.0-27.9,adult Start:16-Nov-2019 Instruction Type:Patient Education How to access health informa tion online - Detail Indication:BMI 27.0-27.9,adult Start:16-Nov-2019 Instruction Type:Patient Education Patient Instructions Indication:BMI 27.0-27.9,adult Start:16-Nov-2019 Instruction Type:Provider Instructions for Treatment How to access health informa tion online Indication:BMI 28.0-28.9,adult Start:07-Sep-2019 Instruction Type:Patient Education How to access health informa tion online - Detail Indication:BMI 28.0-28.9,adult Start:07-Sep-2019 Instruction Type:Patient Education Patient Instructions Indication:Post-nasal drainage Start:07-Sep-2019 Instruction Type:Provider Instructions for Treatment How to access health informa tion online Indication:Hypertension, benign Start:17-May-2019 Instruction Type:Patient Education How to access health informa tion online - Detail Indication:Hypertension, benign Start:17-May-2019 Instruction Type:Patient Education Patient Instructions Indication:Hypertension, benign Start:17-May-2019 Instruction Type:Provider Instructions for Treatment How to access health informa tion online Indication:Nonsmoker Start:14-Nov-2018 Instruction Type:Patient Education How to access health informa tion online - Detail Indication:Nonsmoker Start:14-Nov-2018 Instruction Type:Patient Education Patient Instructions Indication:Nonsmoker Start:14-Nov-2018 Instruction Type:Provider Instructions for Treatment How to access health informa tion online Indication:Nonsmoker Start:14-Sep-2018 Instruction Type:Patient Education How to access health informa tion online - Detail Indication:Nonsmoker Start:14-Sep-2018 Instruction Type:Patient Education Patient Instructions Indication:Nonsmoker Start:14-Sep-2018 Instruction Type:Provider Instructions for Treatment How to access health informa tion online Indication:Nonsmoker Start:04-Jul-2018 Instruction Type:Patient Education Patient Instructions Indication:Nonsmoker Start:04-Jul-2018 Instruction Type:Provider Instructions for Treatment How to access health informa tion online Indication:BMI 27.0-27.9,adult Start:14-Jun-2018 Instruction Type:Patient Education How to access health informa tion online - Detail Indication:BMI 27.0-27.9,adult Start:14-Jun-2018 Instruction Type:Patient Education Patient Instructions Indication:BMI 27.0-27.9,adult Start:14-Jun-2018 Instruction Type:Provider Instructions for Treatment How to access health informa tion online Indication:Need for prophylactic vaccination and inoculation against influenza (Renamed from Need for immunization against influenza) Start:19-May-2018 Instruction Type:Patient Education How to access health informa tion online - Detail Indication:Need for prophylactic vaccination and inoculation against influenza (Renamed from Need for immunization against influenza) Start:19-May-2018 Instruction Type:Patient Education Patient Instructions Indication:Need for prophylactic vaccination and inoculation against influenza (Renamed from Need for immunization against influenza) Start:19-May-2018 Instruction Type:Provider Instructions for Treatment How to access health informa tion online Indication:Nonsmoker Start:16-Nov-2017 Instruction Type:Patient Education How to access health informa tion online - Detail Indication:Nonsmoker Start:16-Nov-2017 Instruction Type:Patient Education Patient Instructions Indication:Nonsmoker Start:16-Nov-2017 Instruction Type:Provider Instructions for Treatment How to access health informa tion online Indication:Nonsmoker Start:10-Nov-2017 Instruction Type:Patient Education How to access health informa tion online - Detail Indication:Nonsmoker Start:10-Nov-2017 Instruction Type:Patient Education Patient Instructions Indication:Nonsmoker Start:10-Nov-2017 Instruction Type:Provider Instructions for Treatment How to access health informa tion online Indication:Nonsmoker Start:02-Nov-2016 Instruction Type:Patient Education How to access health informa tion online - Detail Indication:Nonsmoker Start:02-Nov-2016 Instruction Type:Patient Education Patient Instructions Indication:Nonsmoker Start:02-Nov-2016 Instruction Type:Provider Instructions for Treatment How to access health informa tion online - Detail Indication:Bronchitis Start:08-Sep-2016 Instruction Type:Patient Education Patient Instructions Indication:Bronchitis Start:08-Sep-2016 Instruction Type:Provider Instructions for Treatment How to access health informa tion online Indication:Encounter for screening mammogram for breast cancer (Renamed from Encounter for screening mammogram for malignant neoplasm of breast) Start:19-May-2016 Instruction Type:Patient Education How to access health informa tion online - Detail Indication:Encounter for screening mammogram for breast cancer (Renamed from Encounter for screening mammogram for malignant neoplasm of breast) Start:19-May-2016 Instruction Type:Patient Education Patient Instructions Indication:Encounter for screening mammogram for breast cancer (Renamed from Encounter for screening mammogram for malignant neoplasm of breast) Start:19-May-2016 Instruction Type:Provider Instructions for Treatment Patient Instructions Indication:Acute bronchitis due to other specified organisms Start:07-May-2016 Instruction Type:Provider Instructions for Treatment How to access health informa tion online Indication:Cough Start:08-Apr-2016 Instruction Type:Patient Education How to access health informa tion online - Detail Indication:Cough Start:08-Apr-2016 Instruction Type:Patient Education Patient Instructions Indication:Cough Start:08-Apr-2016 Instruction Type:Provider Instructions for Treatment How to access health informa tion online Indication:Cough Start:31-Mar-2016 Instruction Type:Patient Education How to access health informa tion online - Detail Indication:Cough Start:31-Mar-2016 Instruction Type:Patient Education Patient Instructions Indication:Cough Start:31-Mar-2016 Instruction Type:Provider Instructions for Treatment How to access health informa tion online - Detail Indication:Cough Start:09-Dec-2015 Instruction Type:Patient Education How to access health informa tion online - Detail Indication:Cough Start:09-Dec-2015 Instruction Type:Patient Education How to access health informa tion online - Detail Indication:Cough Start:09-Dec-2015 Instruction Type:Patient Education Patient Instructions Indication:Cough Start:09-Dec-2015 Instruction Type:Provider Instructions for Treatment How to access health informa tion online Indication:Rash/skin eruption Start:23-Apr-2015 Instruction Type:Patient Education How to access health informa tion online - Detail Indication:Rash/skin eruption Start:23-Apr-2015 Instruction Type:Patient Education Patient Instructions Indication:Rash/skin eruption Start:23-Apr-2015 Instruction Type:Provider Instructions for Treatment Patient Instructions Indication:Rash/skin eruption Start:18-Mar-2015 Instruction Type:Provider Instructions for Treatment Patient Instructions Indication:Acute bronchitis Start:29-Oct-2014 Instruction Type:Provider Instructions for Treatment How to access health informa tion online Indication:GERD (gastroesophageal reflux disease) Start:10-Jul-2014 Instruction Type:Patient Education How to access health informa tion online - Detail Indication:GERD (gastroesophageal reflux disease) Start:10-Jul-2014 Instruction Type:Patient Education Patient Instructions Indication:GERD (gastroesophageal reflux disease) Start:10-Jul-2014 Instruction Type:Provider Instructions for Treatment Patient Instructions Indication:GERD (gastroesophageal reflux disease) Start:12-May-2013 Instruction Type:Provider Instructions for Treatment [facility] Work Phone: Instructions* Name Dates Details Patient Instructions Indication:Black tarry stools Start:13-Mar-2022 Instruction Type:Provider Instructions for Treatment Patient Instructions Indication:Nonsmoker Start:01-Jan-2022 Instruction Type:Provider Instructions for Treatment How to Access Health Informa tion Online using Patient Portal and [employer] Apps Indication:Nonsmoker Start:01-Jan-2022 Instruction Type:Patient Education Patient Instructions Indication:BMI 26.0-26.9,adult Start:24-Dec-2021 Instruction Type:Provider Instructions for Treatment How to Access Health Informa tion Online using Patient Portal and [employer] Apps Indication:BMI 26.0-26.9,adult Start:24-Dec-2021 Instruction Type:Patient Education Patient Instructions Indication:BMI 28.0-28.9,adult Start:18-Jun-2021 Instruction Type:Provider Instructions for Treatment How to Access Health Informa tion Online using Patient Portal and [employer] Apps Indication:BMI 28.0-28.9,adult Start:18-Jun-2021 Instruction Type:Patient Education How to Access Health Informa tion Online using Patient Portal and [employer] Apps Indication:Nonsmoker Start:23-Dec-2020 Instruction Type:Patient Education Patient Instructions Indication:Nonsmoker Start:23-Dec-2020 Instruction Type:Provider Instructions for Treatment How to Access Health Informa tion Online using Patient Portal and [employer] Apps Indication:Nonsmoker Start:11-Dec-2020 Instruction Type:Patient Education Patient Instructions Indication:Nonsmoker Start:11-Dec-2020 Instruction Type:Provider Instructions for Treatment How to access health informa tion online Indication:BMI 28.0-28.9,adult Start:18-Jul-2020 Instruction Type:Patient Education How to access health informa tion online - Detail Indication:BMI 28.0-28.9,adult Start:18-Jul-2020 Instruction Type:Patient Education Patient Instructions Indication:BMI 28.0-28.9,adult Start:18-Jul-2020 Instruction Type:Provider Instructions for Treatment How to access health informa tion online Indication:Nonsmoker Start:11-Jul-2020 Instruction Type:Patient Education How to access health informa tion online - Detail Indication:Nonsmoker Start:11-Jul-2020 Instruction Type:Patient Education Patient Instructions Indication:Nonsmoker Start:11-Jul-2020 Instruction Type:Provider Instructions for Treatment How to access health informa tion online Indication:BMI 27.0-27.9,adult Start:12-Jun-2020 Instruction Type:Patient Education How to access health informa tion online - Detail Indication:BMI 27.0-27.9,adult Start:12-Jun-2020 Instruction Type:Patient Education Patient Instructions Indication:BMI 27.0-27.9,adult Start:12-Jun-2020 Instruction Type:Provider Instructions for Treatment How to access health informa tion online Indication:BMI 27.0-27.9,adult Start:29-Apr-2020 Instruction Type:Patient Education How to access health informa tion online - Detail Indication:BMI 27.0-27.9,adult Start:29-Apr-2020 Instruction Type:Patient Education Patient Instructions Indication:BMI 27.0-27.9,adult Start:29-Apr-2020 Instruction Type:Provider Instructions for Treatment How to access health informa tion online Indication:Nonsmoker Start:21-Dec-2019 Instruction Type:Patient Education How to access health informa tion online - Detail Indication:Nonsmoker Start:21-Dec-2019 Instruction Type:Patient Education Patient Instructions Indication:Nonsmoker Start:21-Dec-2019 Instruction Type:Provider Instructions for Treatment How to access health informa tion online Indication:Nonsmoker Start:07-Dec-2019 Instruction Type:Patient Education How to access health informa tion online - Detail Indication:Nonsmoker Start:07-Dec-2019 Instruction Type:Patient Education Patient Instructions Indication:Nonsmoker Start:07-Dec-2019 Instruction Type:Provider Instructions for Treatment How to access health informa tion online Indication:BMI 27.0-27.9,adult Start:16-Nov-2019 Instruction Type:Patient Education How to access health informa tion online - Detail Indication:BMI 27.0-27.9,adult Start:16-Nov-2019 Instruction Type:Patient Education Patient Instructions Indication:BMI 27.0-27.9,adult Start:16-Nov-2019 Instruction Type:Provider Instructions for Treatment How to access health informa tion online Indication:BMI 28.0-28.9,adult Start:07-Sep-2019 Instruction Type:Patient Education How to access health informa tion online - Detail Indication:BMI 28.0-28.9,adult Start:07-Sep-2019 Instruction Type:Patient Education Patient Instructions Indication:Post-nasal drainage Start:07-Sep-2019 Instruction Type:Provider Instructions for Treatment How to access health informa tion online Indication:Hypertension, benign Start:17-May-2019 Instruction Type:Patient Education How to access health informa tion online - Detail Indication:Hypertension, benign Start:17-May-2019 Instruction Type:Patient Education Patient Instructions Indication:Hypertension, benign Start:17-May-2019 Instruction Type:Provider Instructions for Treatment How to access health informa tion online Indication:Nonsmoker Start:14-Nov-2018 Instruction Type:Patient Education How to access health informa tion online - Detail Indication:Nonsmoker Start:14-Nov-2018 Instruction Type:Patient Education Patient Instructions Indication:Nonsmoker Start:14-Nov-2018 Instruction Type:Provider Instructions for Treatment How to access health informa tion online Indication:Nonsmoker Start:14-Sep-2018 Instruction Type:Patient Education How to access health informa tion online - Detail Indication:Nonsmoker Start:14-Sep-2018 Instruction Type:Patient Education Patient Instructions Indication:Nonsmoker Start:14-Sep-2018 Instruction Type:Provider Instructions for Treatment How to access health informa tion online Indication:Nonsmoker Start:04-Jul-2018 Instruction Type:Patient Education Patient Instructions Indication:Nonsmoker Start:04-Jul-2018 Instruction Type:Provider Instructions for Treatment How to access health informa tion online Indication:BMI 27.0-27.9,adult Start:14-Jun-2018 Instruction Type:Patient Education How to access health informa tion online - Detail Indication:BMI 27.0-27.9,adult Start:14-Jun-2018 Instruction Type:Patient Education Patient Instructions Indication:BMI 27.0-27.9,adult Start:14-Jun-2018 Instruction Type:Provider Instructions for Treatment How to access health informa tion online Indication:Need for prophylactic vaccination and inoculation against influenza (Renamed from Need for immunization against influenza) Start:19-May-2018 Instruction Type:Patient Education How to access health informa tion online - Detail Indication:Need for prophylactic vaccination and inoculation against influenza (Renamed from Need for immunization against influenza) Start:19-May-2018 Instruction Type:Patient Education Patient Instructions Indication:Need for prophylactic vaccination and inoculation against influenza (Renamed from Need for immunization against influenza) Start:19-May-2018 Instruction Type:Provider Instructions for Treatment How to access health informa tion online Indication:Nonsmoker Start:16-Nov-2017 Instruction Type:Patient Education How to access health informa tion online - Detail Indication:Nonsmoker Start:16-Nov-2017 Instruction Type:Patient Education Patient Instructions Indication:Nonsmoker Start:16-Nov-2017 Instruction Type:Provider Instructions for Treatment How to access health informa tion online Indication:Nonsmoker Start:10-Nov-2017 Instruction Type:Patient Education How to access health informa tion online - Detail Indication:Nonsmoker Start:10-Nov-2017 Instruction Type:Patient Education Patient Instructions Indication:Nonsmoker Start:10-Nov-2017 Instruction Type:Provider Instructions for Treatment How to access health informa tion online Indication:Nonsmoker Start:02-Nov-2016 Instruction Type:Patient Education How to access health informa tion online - Detail Indication:Nonsmoker Start:02-Nov-2016 Instruction Type:Patient Education Patient Instructions Indication:Nonsmoker Start:02-Nov-2016 Instruction Type:Provider Instructions for Treatment How to access health informa tion online - Detail Indication:Bronchitis Start:08-Sep-2016 Instruction Type:Patient Education Patient Instructions Indication:Bronchitis Start:08-Sep-2016 Instruction Type:Provider Instructions for Treatment How to access health informa tion online Indication:Encounter for screening mammogram for breast cancer (Renamed from Encounter for screening mammogram for malignant neoplasm of breast) Start:19-May-2016 Instruction Type:Patient Education How to access health informa tion online - Detail Indication:Encounter for screening mammogram for breast cancer (Renamed from Encounter for screening mammogram for malignant neoplasm of breast) Start:19-May-2016 Instruction Type:Patient Education Patient Instructions Indication:Encounter for screening mammogram for breast cancer (Renamed from Encounter for screening mammogram for malignant neoplasm of breast) Start:19-May-2016 Instruction Type:Provider Instructions for Treatment Patient Instructions Indication:Acute bronchitis due to other specified organisms Start:07-May-2016 Instruction Type:Provider Instructions for Treatment How to access health informa tion online Indication:Cough Start:08-Apr-2016 Instruction Type:Patient Education How to access health informa tion online - Detail Indication:Cough Start:08-Apr-2016 Instruction Type:Patient Education Patient Instructions Indication:Cough Start:08-Apr-2016 Instruction Type:Provider Instructions for Treatment How to access health informa tion online Indication:Cough Start:31-Mar-2016 Instruction Type:Patient Education How to access health informa tion online - Detail Indication:Cough Start:31-Mar-2016 Instruction Type:Patient Education Patient Instructions Indication:Cough Start:31-Mar-2016 Instruction Type:Provider Instructions for Treatment How to access health informa tion online - Detail Indication:Cough Start:09-Dec-2015 Instruction Type:Patient Education How to access health informa tion online - Detail Indication:Cough Start:09-Dec-2015 Instruction Type:Patient Education How to access health informa tion online - Detail Indication:Cough Start:09-Dec-2015 Instruction Type:Patient Education Patient Instructions Indication:Cough Start:09-Dec-2015 Instruction Type:Provider Instructions for Treatment How to access health informa tion online Indication:Rash/skin eruption Start:23-Apr-2015 Instruction Type:Patient Education How to access health informa tion online - Detail Indication:Rash/skin eruption Start:23-Apr-2015 Instruction Type:Patient Education Patient Instructions Indication:Rash/skin eruption Start:23-Apr-2015 Instruction Type:Provider Instructions for Treatment Patient Instructions Indication:Rash/skin eruption Start:18-Mar-2015 Instruction Type:Provider Instructions for Treatment Patient Instructions Indication:Acute bronchitis Start:29-Oct-2014 Instruction Type:Provider Instructions for Treatment How to access health informa tion online Indication:GERD (gastroesophageal reflux disease) Start:10-Jul-2014 Instruction Type:Patient Education How to access health informa tion online - Detail Indication:GERD (gastroesophageal reflux disease) Start:10-Jul-2014 Instruction Type:Patient Education Patient Instructions Indication:GERD (gastroesophageal reflux disease) Start:10-Jul-2014 Instruction Type:Provider Instructions for Treatment Patient Instructions Indication:GERD (gastroesophageal reflux disease) Start:12-May-2013 Instruction Type:Provider Instructions for Treatment [facility]; [facility] Work Phone: Instructions* Name Dates Details Patient Instructions Indication:BMI 26.0-26.9,adult Start:05-May-2022 Instruction Type:Provider Instructions for Treatment How to Access Health Informa tion Online using Patient Portal and [employer]rd [employer] Apps Indication:BMI 26.0-26.9,adult Start:05-May-2022 Instruction Type:Patient Education Patient Instructions Indication:Black tarry stools Start:13-Mar-2022 Instruction Type:Provider Instructions for Treatment Patient Instructions Indication:Nonsmoker Start:01-Jan-2022 Instruction Type:Provider Instructions for Treatment How to Access Health Informa tion Online using Patient Portal and [employer]rd [employer] Apps Indication:Nonsmoker Start:01-Jan-2022 Instruction Type:Patient Education Patient Instructions Indication:BMI 26.0-26.9,adult Start:24-Dec-2021 Instruction Type:Provider Instructions for Treatment How to Access Health Informa tion Online using Patient Portal and [employer]rd [employer] Apps Indication:BMI 26.0-26.9,adult Start:24-Dec-2021 Instruction Type:Patient Education Patient Instructions Indication:BMI 28.0-28.9,adult Start:18-Jun-2021 Instruction Type:Provider Instructions for Treatment How to Access Health Informa tion Online using Patient Portal and [employer]rd [employer] Apps Indication:BMI 28.0-28.9,adult Start:18-Jun-2021 Instruction Type:Patient Education How to Access Health Informa tion Online using Patient Portal and [employer]rd [employer] Apps Indication:Nonsmoker Start:23-Dec-2020 Instruction Type:Patient Education Patient Instructions Indication:Nonsmoker Start:23-Dec-2020 Instruction Type:Provider Instructions for Treatment How to Access Health Informa tion Online using Patient Portal and [employer]rd [employer] Apps Indication:Nonsmoker Start:11-Dec-2020 Instruction Type:Patient Education Patient Instructions Indication:Nonsmoker Start:11-Dec-2020 Instruction Type:Provider Instructions for Treatment How to access health informa tion online Indication:BMI 28.0-28.9,adult Start:18-Jul-2020 Instruction Type:Patient Education How to access health informa tion online - Detail Indication:BMI 28.0-28.9,adult Start:18-Jul-2020 Instruction Type:Patient Education Patient Instructions Indication:BMI 28.0-28.9,adult Start:18-Jul-2020 Instruction Type:Provider Instructions for Treatment How to access health informa tion online Indication:Nonsmoker Start:11-Jul-2020 Instruction Type:Patient Education How to access health informa tion online - Detail Indication:Nonsmoker Start:11-Jul-2020 Instruction Type:Patient Education Patient Instructions Indication:Nonsmoker Start:11-Jul-2020 Instruction Type:Provider Instructions for Treatment How to access health informa tion online Indication:BMI 27.0-27.9,adult Start:12-Jun-2020 Instruction Type:Patient Education How to access health informa tion online - Detail Indication:BMI 27.0-27.9,adult Start:12-Jun-2020 Instruction Type:Patient Education Patient Instructions Indication:BMI 27.0-27.9,adult Start:12-Jun-2020 Instruction Type:Provider Instructions for Treatment How to access health informa tion online Indication:BMI 27.0-27.9,adult Start:29-Apr-2020 Instruction Type:Patient Education How to access health informa tion online - Detail Indication:BMI 27.0-27.9,adult Start:29-Apr-2020 Instruction Type:Patient Education Patient Instructions Indication:BMI 27.0-27.9,adult Start:29-Apr-2020 Instruction Type:Provider Instructions for Treatment How to access health informa tion online Indication:Nonsmoker Start:21-Dec-2019 Instruction Type:Patient Education How to access health informa tion online - Detail Indication:Nonsmoker Start:21-Dec-2019 Instruction Type:Patient Education Patient Instructions Indication:Nonsmoker Start:21-Dec-2019 Instruction Type:Provider Instructions for Treatment How to access health informa tion online Indication:Nonsmoker Start:07-Dec-2019 Instruction Type:Patient Education How to access health informa tion online - Detail Indication:Nonsmoker Start:07-Dec-2019 Instruction Type:Patient Education Patient Instructions Indication:Nonsmoker Start:07-Dec-2019 Instruction Type:Provider Instructions for Treatment How to access health informa tion online Indication:BMI 27.0-27.9,adult Start:16-Nov-2019 Instruction Type:Patient Education How to access health informa tion online - Detail Indication:BMI 27.0-27.9,adult Start:16-Nov-2019 Instruction Type:Patient Education Patient Instructions Indication:BMI 27.0-27.9,adult Start:16-Nov-2019 Instruction Type:Provider Instructions for Treatment How to access health informa tion online Indication:BMI 28.0-28.9,adult Start:07-Sep-2019 Instruction Type:Patient Education How to access health informa tion online - Detail Indication:BMI 28.0-28.9,adult Start:07-Sep-2019 Instruction Type:Patient Education Patient Instructions Indication:Post-nasal drainage Start:07-Sep-2019 Instruction Type:Provider Instructions for Treatment How to access health informa tion online Indication:Hypertension, benign Start:17-May-2019 Instruction Type:Patient Education How to access health informa tion online - Detail Indication:Hypertension, benign Start:17-May-2019 Instruction Type:Patient Education Patient Instructions Indication:Hypertension, benign Start:17-May-2019 Instruction Type:Provider Instructions for Treatment How to access health informa tion online Indication:Nonsmoker Start:14-Nov-2018 Instruction Type:Patient Education How to access health informa tion online - Detail Indication:Nonsmoker Start:14-Nov-2018 Instruction Type:Patient Education Patient Instructions Indication:Nonsmoker Start:14-Nov-2018 Instruction Type:Provider Instructions for Treatment How to access health informa tion online Indication:Nonsmoker Start:14-Sep-2018 Instruction Type:Patient Education How to access health informa tion online - Detail Indication:Nonsmoker Start:14-Sep-2018 Instruction Type:Patient Education Patient Instructions Indication:Nonsmoker Start:14-Sep-2018 Instruction Type:Provider Instructions for Treatment How to access health informa tion online Indication:Nonsmoker Start:04-Jul-2018 Instruction Type:Patient Education Patient Instructions Indication:Nonsmoker Start:04-Jul-2018 Instruction Type:Provider Instructions for Treatment How to access health informa tion online Indication:BMI 27.0-27.9,adult Start:14-Jun-2018 Instruction Type:Patient Education How to access health informa tion online - Detail Indication:BMI 27.0-27.9,adult Start:14-Jun-2018 Instruction Type:Patient Education Patient Instructions Indication:BMI 27.0-27.9,adult Start:14-Jun-2018 Instruction Type:Provider Instructions for Treatment How to access health informa tion online Indication:Need for prophylactic vaccination and inoculation against influenza (Renamed from Need for immunization against influenza) Start:19-May-2018 Instruction Type:Patient Education How to access health informa tion online - Detail Indication:Need for prophylactic vaccination and inoculation against influenza (Renamed from Need for immunization against influenza) Start:19-May-2018 Instruction Type:Patient Education Patient Instructions Indication:Need for prophylactic vaccination and inoculation against influenza (Renamed from Need for immunization against influenza) Start:19-May-2018 Instruction Type:Provider Instructions for Treatment How to access health informa tion online Indication:Nonsmoker Start:16-Nov-2017 Instruction Type:Patient Education How to access health informa tion online - Detail Indication:Nonsmoker Start:16-Nov-2017 Instruction Type:Patient Education Patient Instructions Indication:Nonsmoker Start:16-Nov-2017 Instruction Type:Provider Instructions for Treatment How to access health informa tion online Indication:Nonsmoker Start:10-Nov-2017 Instruction Type:Patient Education How to access health informa tion online - Detail Indication:Nonsmoker Start:10-Nov-2017 Instruction Type:Patient Education Patient Instructions Indication:Nonsmoker Start:10-Nov-2017 Instruction Type:Provider Instructions for Treatment How to access health informa tion online Indication:Nonsmoker Start:02-Nov-2016 Instruction Type:Patient Education How to access health informa tion online - Detail Indication:Nonsmoker Start:02-Nov-2016 Instruction Type:Patient Education Patient Instructions Indication:Nonsmoker Start:02-Nov-2016 Instruction Type:Provider Instructions for Treatment How to access health informa tion online - Detail Indication:Bronchitis Start:08-Sep-2016 Instruction Type:Patient Education Patient Instructions Indication:Bronchitis Start:08-Sep-2016 Instruction Type:Provider Instructions for Treatment How to access health informa tion online Indication:Encounter for screening mammogram for breast cancer (Renamed from Encounter for screening mammogram for malignant neoplasm of breast) Start:19-May-2016 Instruction Type:Patient Education How to access health informa tion online - Detail Indication:Encounter for screening mammogram for breast cancer (Renamed from Encounter for screening mammogram for malignant neoplasm of breast) Start:19-May-2016 Instruction Type:Patient Education Patient Instructions Indication:Encounter for screening mammogram for breast cancer (Renamed from Encounter for screening mammogram for malignant neoplasm of breast) Start:19-May-2016 Instruction Type:Provider Instructions for Treatment Patient Instructions Indication:Acute bronchitis due to other specified organisms Start:07-May-2016 Instruction Type:Provider Instructions for Treatment How to access health informa tion online Indication:Cough Start:08-Apr-2016 Instruction Type:Patient Education How to access health informa tion online - Detail Indication:Cough Start:08-Apr-2016 Instruction Type:Patient Education Patient Instructions Indication:Cough Start:08-Apr-2016 Instruction Type:Provider Instructions for Treatment How to access health informa tion online Indication:Cough Start:31-Mar-2016 Instruction Type:Patient Education How to access health informa tion online - Detail Indication:Cough Start:31-Mar-2016 Instruction Type:Patient Education Patient Instructions Indication:Cough Start:31-Mar-2016 Instruction Type:Provider Instructions for Treatment How to access health informa tion online - Detail Indication:Cough Start:09-Dec-2015 Instruction Type:Patient Education How to access health informa tion online - Detail Indication:Cough Start:09-Dec-2015 Instruction Type:Patient Education How to access health informa tion online - Detail Indication:Cough Start:09-Dec-2015 Instruction Type:Patient Education Patient Instructions Indication:Cough Start:09-Dec-2015 Instruction Type:Provider Instructions for Treatment How to access health informa tion online Indication:Rash/skin eruption Start:23-Apr-2015 Instruction Type:Patient Education How to access health informa tion online - Detail Indication:Rash/skin eruption Start:23-Apr-2015 Instruction Type:Patient Education Patient Instructions Indication:Rash/skin eruption Start:23-Apr-2015 Instruction Type:Provider Instructions for Treatment Patient Instructions Indication:Rash/skin eruption Start:18-Mar-2015 Instruction Type:Provider Instructions for Treatment Patient Instructions Indication:Acute bronchitis Start:29-Oct-2014 Instruction Type:Provider Instructions for Treatment How to access health informa tion online Indication:GERD (gastroesophageal reflux disease) Start:10-Jul-2014 Instruction Type:Patient Education How to access health informa tion online - Detail Indication:GERD (gastroesophageal reflux disease) Start:10-Jul-2014 Instruction Type:Patient Education Patient Instructions Indication:GERD (gastroesophageal reflux disease) Start:10-Jul-2014 Instruction Type:Provider Instructions for Treatment Patient Instructions Indication:GERD (gastroesophageal reflux disease) Start:12-May-2013 Instruction Type:Provider Instructions for Treatment [facility]; [facility] Work Phone: Instructions* Name Dates Details Patient Instructions Indication:BMI 26.0-26.9,adult Start:05-May-2022 Instruction Type:Provider Instructions for Treatment How to Access Health Informa tion Online using Patient Portal and [employer]rd [employer] Apps Indication:BMI 26.0-26.9,adult Start:05-May-2022 Instruction Type:Patient Education Patient Instructions Indication:Black tarry stools Start:13-Mar-2022 Instruction Type:Provider Instructions for Treatment Patient Instructions Indication:Nonsmoker Start:01-Jan-2022 Instruction Type:Provider Instructions for Treatment How to Access Health Informa tion Online using Patient Portal and [employer]rd [employer] Apps Indication:Nonsmoker Start:01-Jan-2022 Instruction Type:Patient Education Patient Instructions Indication:BMI 28.0-28.9,adult Start:18-Jun-2021 Instruction Type:Provider Instructions for Treatment How to Access Health Informa tion Online using Patient Portal and [employer]rd [employer] Apps Indication:BMI 28.0-28.9,adult Start:18-Jun-2021 Instruction Type:Patient Education How to Access Health Informa tion Online using Patient Portal and [employer]rd [employer] Apps Indication:Nonsmoker Start:23-Dec-2020 Instruction Type:Patient Education Patient Instructions Indication:Nonsmoker Start:23-Dec-2020 Instruction Type:Provider Instructions for Treatment How to Access Health Informa tion Online using Patient Portal and [employer]rd [employer] Apps Indication:Nonsmoker Start:11-Dec-2020 Instruction Type:Patient Education Patient Instructions Indication:Nonsmoker Start:11-Dec-2020 Instruction Type:Provider Instructions for Treatment How to access health informa tion online Indication:BMI 28.0-28.9,adult Start:18-Jul-2020 Instruction Type:Patient Education How to access health informa tion online - Detail Indication:BMI 28.0-28.9,adult Start:18-Jul-2020 Instruction Type:Patient Education Patient Instructions Indication:BMI 28.0-28.9,adult Start:18-Jul-2020 Instruction Type:Provider Instructions for Treatment How to access health informa tion online Indication:Nonsmoker Start:11-Jul-2020 Instruction Type:Patient Education How to access health informa tion online - Detail Indication:Nonsmoker Start:11-Jul-2020 Instruction Type:Patient Education Patient Instructions Indication:Nonsmoker Start:11-Jul-2020 Instruction Type:Provider Instructions for Treatment How to access health informa tion online Indication:BMI 27.0-27.9,adult Start:12-Jun-2020 Instruction Type:Patient Education How to access health informa tion online - Detail Indication:BMI 27.0-27.9,adult Start:12-Jun-2020 Instruction Type:Patient Education Patient Instructions Indication:BMI 27.0-27.9,adult Start:12-Jun-2020 Instruction Type:Provider Instructions for Treatment How to access health informa tion online Indication:BMI 27.0-27.9,adult Start:29-Apr-2020 Instruction Type:Patient Education How to access health informa tion online - Detail Indication:BMI 27.0-27.9,adult Start:29-Apr-2020 Instruction Type:Patient Education Patient Instructions Indication:BMI 27.0-27.9,adult Start:29-Apr-2020 Instruction Type:Provider Instructions for Treatment How to access health informa tion online Indication:Nonsmoker Start:21-Dec-2019 Instruction Type:Patient Education How to access health informa tion online - Detail Indication:Nonsmoker Start:21-Dec-2019 Instruction Type:Patient Education Patient Instructions Indication:Nonsmoker Start:21-Dec-2019 Instruction Type:Provider Instructions for Treatment How to access health informa tion online Indication:Nonsmoker Start:07-Dec-2019 Instruction Type:Patient Education How to access health informa tion online - Detail Indication:Nonsmoker Start:07-Dec-2019 Instruction Type:Patient Education Patient Instructions Indication:Nonsmoker Start:07-Dec-2019 Instruction Type:Provider Instructions for Treatment How to access health informa tion online Indication:BMI 27.0-27.9,adult Start:16-Nov-2019 Instruction Type:Patient Education How to access health informa tion online - Detail Indication:BMI 27.0-27.9,adult Start:16-Nov-2019 Instruction Type:Patient Education Patient Instructions Indication:BMI 27.0-27.9,adult Start:16-Nov-2019 Instruction Type:Provider Instructions for Treatment How to access health informa tion online Indication:BMI 28.0-28.9,adult Start:07-Sep-2019 Instruction Type:Patient Education How to access health informa tion online - Detail Indication:BMI 28.0-28.9,adult Start:07-Sep-2019 Instruction Type:Patient Education Patient Instructions Indication:Post-nasal drainage Start:07-Sep-2019 Instruction Type:Provider Instructions for Treatment How to access health informa tion online Indication:Hypertension, benign Start:17-May-2019 Instruction Type:Patient Education How to access health informa tion online - Detail Indication:Hypertension, benign Start:17-May-2019 Instruction Type:Patient Education Patient Instructions Indication:Hypertension, benign Start:17-May-2019 Instruction Type:Provider Instructions for Treatment How to access health informa tion online Indication:Nonsmoker Start:14-Nov-2018 Instruction Type:Patient Education How to access health informa tion online - Detail Indication:Nonsmoker Start:14-Nov-2018 Instruction Type:Patient Education Patient Instructions Indication:Nonsmoker Start:14-Nov-2018 Instruction Type:Provider Instructions for Treatment How to access health informa tion online Indication:Nonsmoker Start:14-Sep-2018 Instruction Type:Patient Education How to access health informa tion online - Detail Indication:Nonsmoker Start:14-Sep-2018 Instruction Type:Patient Education Patient Instructions Indication:Nonsmoker Start:14-Sep-2018 Instruction Type:Provider Instructions for Treatment How to access health informa tion online Indication:Nonsmoker Start:04-Jul-2018 Instruction Type:Patient Education Patient Instructions Indication:Nonsmoker Start:04-Jul-2018 Instruction Type:Provider Instructions for Treatment How to access health informa tion online Indication:BMI 27.0-27.9,adult Start:14-Jun-2018 Instruction Type:Patient Education How to access health informa tion online - Detail Indication:BMI 27.0-27.9,adult Start:14-Jun-2018 Instruction Type:Patient Education Patient Instructions Indication:BMI 27.0-27.9,adult Start:14-Jun-2018 Instruction Type:Provider Instructions for Treatment How to access health informa tion online Indication:Need for prophylactic vaccination and inoculation against influenza (Renamed from Need for immunization against influenza) Start:19-May-2018 Instruction Type:Patient Education How to access health informa tion online - Detail Indication:Need for prophylactic vaccination and inoculation against influenza (Renamed from Need for immunization against influenza) Start:19-May-2018 Instruction Type:Patient Education Patient Instructions Indication:Need for prophylactic vaccination and inoculation against influenza (Renamed from Need for immunization against influenza) Start:19-May-2018 Instruction Type:Provider Instructions for Treatment How to access health informa tion online Indication:Nonsmoker Start:16-Nov-2017 Instruction Type:Patient Education How to access health informa tion online - Detail Indication:Nonsmoker Start:16-Nov-2017 Instruction Type:Patient Education Patient Instructions Indication:Nonsmoker Start:16-Nov-2017 Instruction Type:Provider Instructions for Treatment How to access health informa tion online Indication:Nonsmoker Start:10-Nov-2017 Instruction Type:Patient Education How to access health informa tion online - Detail Indication:Nonsmoker Start:10-Nov-2017 Instruction Type:Patient Education Patient Instructions Indication:Nonsmoker Start:10-Nov-2017 Instruction Type:Provider Instructions for Treatment How to access health informa tion online Indication:Nonsmoker Start:02-Nov-2016 Instruction Type:Patient Education How to access health informa tion online - Detail Indication:Nonsmoker Start:02-Nov-2016 Instruction Type:Patient Education Patient Instructions Indication:Nonsmoker Start:02-Nov-2016 Instruction Type:Provider Instructions for Treatment How to access health informa tion online - Detail Indication:Bronchitis Start:08-Sep-2016 Instruction Type:Patient Education Patient Instructions Indication:Bronchitis Start:08-Sep-2016 Instruction Type:Provider Instructions for Treatment How to access health informa tion online Indication:Encounter for screening mammogram for breast cancer (Renamed from Encounter for screening mammogram for malignant neoplasm of breast) Start:19-May-2016 Instruction Type:Patient Education How to access health informa tion online - Detail Indication:Encounter for screening mammogram for breast cancer (Renamed from Encounter for screening mammogram for malignant neoplasm of breast) Start:19-May-2016 Instruction Type:Patient Education Patient Instructions Indication:Encounter for screening mammogram for breast cancer (Renamed from Encounter for screening mammogram for malignant neoplasm of breast) Start:19-May-2016 Instruction Type:Provider Instructions for Treatment Patient Instructions Indication:Acute bronchitis due to other specified organisms Start:07-May-2016 Instruction Type:Provider Instructions for Treatment How to access health informa tion online Indication:Cough Start:08-Apr-2016 Instruction Type:Patient Education How to access health informa tion online - Detail Indication:Cough Start:08-Apr-2016 Instruction Type:Patient Education Patient Instructions Indication:Cough Start:08-Apr-2016 Instruction Type:Provider Instructions for Treatment How to access health informa tion online Indication:Cough Start:31-Mar-2016 Instruction Type:Patient Education How to access health informa tion online - Detail Indication:Cough Start:31-Mar-2016 Instruction Type:Patient Education Patient Instructions Indication:Cough Start:31-Mar-2016 Instruction Type:Provider Instructions for Treatment How to access health informa tion online - Detail Indication:Cough Start:09-Dec-2015 Instruction Type:Patient Education How to access health informa tion online - Detail Indication:Cough Start:09-Dec-2015 Instruction Type:Patient Education How to access health informa tion online - Detail Indication:Cough Start:09-Dec-2015 Instruction Type:Patient Education Patient Instructions Indication:Cough Start:09-Dec-2015 Instruction Type:Provider Instructions for Treatment How to access health informa tion online Indication:Rash/skin eruption Start:23-Apr-2015 Instruction Type:Patient Education How to access health informa tion online - Detail Indication:Rash/skin eruption Start:23-Apr-2015 Instruction Type:Patient Education Patient Instructions Indication:Rash/skin eruption Start:23-Apr-2015 Instruction Type:Provider Instructions for Treatment Patient Instructions Indication:Rash/skin eruption Start:18-Mar-2015 Instruction Type:Provider Instructions for Treatment Patient Instructions Indication:Acute bronchitis Start:29-Oct-2014 Instruction Type:Provider Instructions for Treatment How to access health informa tion online Indication:GERD (gastroesophageal reflux disease) Start:10-Jul-2014 Instruction Type:Patient Education How to access health informa tion online - Detail Indication:GERD (gastroesophageal reflux disease) Start:10-Jul-2014 Instruction Type:Patient Education Patient Instructions Indication:GERD (gastroesophageal reflux disease) Start:10-Jul-2014 Instruction Type:Provider Instructions for Treatment Patient Instructions Indication:GERD (gastroesophageal reflux disease) Start:12-May-2013 Instruction Type:Provider Instructions for Treatment [facility] Work Phone: Instructions* Name Dates Details Patient Instructions Indication:Nonsmoker Start:06-Jul-2022 Instruction Type:Provider Instructions for Treatment How to Access Health Informa tion Online using Patient Portal and [employer]rd [employer] Apps Indication:Nonsmoker Start:06-Jul-2022 Instruction Type:Patient Education Patient Instructions Indication:BMI 26.0-26.9,adult Start:05-May-2022 Instruction Type:Provider Instructions for Treatment How to Access Health Informa tion Online using Patient Portal and [employer]rd [employer] Apps Indication:BMI 26.0-26.9,adult Start:05-May-2022 Instruction Type:Patient Education Patient Instructions Indication:Black tarry stools Start:13-Mar-2022 Instruction Type:Provider Instructions for Treatment Patient Instructions Indication:Nonsmoker Start:01-Jan-2022 Instruction Type:Provider Instructions for Treatment How to Access Health Informa tion Online using Patient Portal and [employer]rd [employer] Apps Indication:Nonsmoker Start:01-Jan-2022 Instruction Type:Patient Education Patient Instructions Indication:BMI 28.0-28.9,adult Start:18-Jun-2021 Instruction Type:Provider Instructions for Treatment How to Access Health Informa tion Online using Patient Portal and [employer]rd [employer] Apps Indication:BMI 28.0-28.9,adult Start:18-Jun-2021 Instruction Type:Patient Education How to Access Health Informa tion Online using Patient Portal and [employer]rd [employer] Apps Indication:Nonsmoker Start:23-Dec-2020 Instruction Type:Patient Education Patient Instructions Indication:Nonsmoker Start:23-Dec-2020 Instruction Type:Provider Instructions for Treatment How to Access Health Informa tion Online using Patient Portal and [employer]rd [employer] Apps Indication:Nonsmoker Start:11-Dec-2020 Instruction Type:Patient Education Patient Instructions Indication:Nonsmoker Start:11-Dec-2020 Instruction Type:Provider Instructions for Treatment How to access health informa tion online Indication:BMI 28.0-28.9,adult Start:18-Jul-2020 Instruction Type:Patient Education How to access health informa tion online - Detail Indication:BMI 28.0-28.9,adult Start:18-Jul-2020 Instruction Type:Patient Education Patient Instructions Indication:BMI 28.0-28.9,adult Start:18-Jul-2020 Instruction Type:Provider Instructions for Treatment How to access health informa tion online Indication:Nonsmoker Start:11-Jul-2020 Instruction Type:Patient Education How to access health informa tion online - Detail Indication:Nonsmoker Start:11-Jul-2020 Instruction Type:Patient Education Patient Instructions Indication:Nonsmoker Start:11-Jul-2020 Instruction Type:Provider Instructions for Treatment How to access health informa tion online Indication:BMI 27.0-27.9,adult Start:12-Jun-2020 Instruction Type:Patient Education How to access health informa tion online - Detail Indication:BMI 27.0-27.9,adult Start:12-Jun-2020 Instruction Type:Patient Education Patient Instructions Indication:BMI 27.0-27.9,adult Start:12-Jun-2020 Instruction Type:Provider Instructions for Treatment How to access health informa tion online Indication:BMI 27.0-27.9,adult Start:29-Apr-2020 Instruction Type:Patient Education How to access health informa tion online - Detail Indication:BMI 27.0-27.9,adult Start:29-Apr-2020 Instruction Type:Patient Education Patient Instructions Indication:BMI 27.0-27.9,adult Start:29-Apr-2020 Instruction Type:Provider Instructions for Treatment How to access health informa tion online Indication:Nonsmoker Start:21-Dec-2019 Instruction Type:Patient Education How to access health informa tion online - Detail Indication:Nonsmoker Start:21-Dec-2019 Instruction Type:Patient Education Patient Instructions Indication:Nonsmoker Start:21-Dec-2019 Instruction Type:Provider Instructions for Treatment How to access health informa tion online Indication:Nonsmoker Start:07-Dec-2019 Instruction Type:Patient Education How to access health informa tion online - Detail Indication:Nonsmoker Start:07-Dec-2019 Instruction Type:Patient Education Patient Instructions Indication:Nonsmoker Start:07-Dec-2019 Instruction Type:Provider Instructions for Treatment How to access health informa tion online Indication:BMI 27.0-27.9,adult Start:16-Nov-2019 Instruction Type:Patient Education How to access health informa tion online - Detail Indication:BMI 27.0-27.9,adult Start:16-Nov-2019 Instruction Type:Patient Education Patient Instructions Indication:BMI 27.0-27.9,adult Start:16-Nov-2019 Instruction Type:Provider Instructions for Treatment How to access health informa tion online Indication:BMI 28.0-28.9,adult Start:07-Sep-2019 Instruction Type:Patient Education How to access health informa tion online - Detail Indication:BMI 28.0-28.9,adult Start:07-Sep-2019 Instruction Type:Patient Education Patient Instructions Indication:Post-nasal drainage Start:07-Sep-2019 Instruction Type:Provider Instructions for Treatment How to access health informa tion online Indication:Hypertension, benign Start:17-May-2019 Instruction Type:Patient Education How to access health informa tion online - Detail Indication:Hypertension, benign Start:17-May-2019 Instruction Type:Patient Education Patient Instructions Indication:Hypertension, benign Start:17-May-2019 Instruction Type:Provider Instructions for Treatment How to access health informa tion online Indication:Nonsmoker Start:14-Nov-2018 Instruction Type:Patient Education How to access health informa tion online - Detail Indication:Nonsmoker Start:14-Nov-2018 Instruction Type:Patient Education Patient Instructions Indication:Nonsmoker Start:14-Nov-2018 Instruction Type:Provider Instructions for Treatment How to access health informa tion online Indication:Nonsmoker Start:14-Sep-2018 Instruction Type:Patient Education How to access health informa tion online - Detail Indication:Nonsmoker Start:14-Sep-2018 Instruction Type:Patient Education Patient Instructions Indication:Nonsmoker Start:14-Sep-2018 Instruction Type:Provider Instructions for Treatment How to access health informa tion online Indication:Nonsmoker Start:04-Jul-2018 Instruction Type:Patient Education Patient Instructions Indication:Nonsmoker Start:04-Jul-2018 Instruction Type:Provider Instructions for Treatment How to access health informa tion online Indication:BMI 27.0-27.9,adult Start:14-Jun-2018 Instruction Type:Patient Education How to access health informa tion online - Detail Indication:BMI 27.0-27.9,adult Start:14-Jun-2018 Instruction Type:Patient Education Patient Instructions Indication:BMI 27.0-27.9,adult Start:14-Jun-2018 Instruction Type:Provider Instructions for Treatment How to access health informa tion online Indication:Need for prophylactic vaccination and inoculation against influenza (Renamed from Need for immunization against influenza) Start:19-May-2018 Instruction Type:Patient Education How to access health informa tion online - Detail Indication:Need for prophylactic vaccination and inoculation against influenza (Renamed from Need for immunization against influenza) Start:19-May-2018 Instruction Type:Patient Education Patient Instructions Indication:Need for prophylactic vaccination and inoculation against influenza (Renamed from Need for immunization against influenza) Start:19-May-2018 Instruction Type:Provider Instructions for Treatment How to access health informa tion online Indication:Nonsmoker Start:16-Nov-2017 Instruction Type:Patient Education How to access health informa tion online - Detail Indication:Nonsmoker Start:16-Nov-2017 Instruction Type:Patient Education Patient Instructions Indication:Nonsmoker Start:16-Nov-2017 Instruction Type:Provider Instructions for Treatment How to access health informa tion online Indication:Nonsmoker Start:10-Nov-2017 Instruction Type:Patient Education How to access health informa tion online - Detail Indication:Nonsmoker Start:10-Nov-2017 Instruction Type:Patient Education Patient Instructions Indication:Nonsmoker Start:10-Nov-2017 Instruction Type:Provider Instructions for Treatment How to access health informa tion online Indication:Nonsmoker Start:02-Nov-2016 Instruction Type:Patient Education How to access health informa tion online - Detail Indication:Nonsmoker Start:02-Nov-2016 Instruction Type:Patient Education Patient Instructions Indication:Nonsmoker Start:02-Nov-2016 Instruction Type:Provider Instructions for Treatment How to access health informa tion online - Detail Indication:Bronchitis Start:08-Sep-2016 Instruction Type:Patient Education Patient Instructions Indication:Bronchitis Start:08-Sep-2016 Instruction Type:Provider Instructions for Treatment How to access health informa tion online Indication:Encounter for screening mammogram for breast cancer (Renamed from Encounter for screening mammogram for malignant neoplasm of breast) Start:19-May-2016 Instruction Type:Patient Education How to access health informa tion online - Detail Indication:Encounter for screening mammogram for breast cancer (Renamed from Encounter for screening mammogram for malignant neoplasm of breast) Start:19-May-2016 Instruction Type:Patient Education Patient Instructions Indication:Encounter for screening mammogram for breast cancer (Renamed from Encounter for screening mammogram for malignant neoplasm of breast) Start:19-May-2016 Instruction Type:Provider Instructions for Treatment Patient Instructions Indication:Acute bronchitis due to other specified organisms Start:07-May-2016 Instruction Type:Provider Instructions for Treatment How to access health informa tion online Indication:Cough Start:08-Apr-2016 Instruction Type:Patient Education How to access health informa tion online - Detail Indication:Cough Start:08-Apr-2016 Instruction Type:Patient Education Patient Instructions Indication:Cough Start:08-Apr-2016 Instruction Type:Provider Instructions for Treatment How to access health informa tion online Indication:Cough Start:31-Mar-2016 Instruction Type:Patient Education How to access health informa tion online - Detail Indication:Cough Start:31-Mar-2016 Instruction Type:Patient Education Patient Instructions Indication:Cough Start:31-Mar-2016 Instruction Type:Provider Instructions for Treatment How to access health informa tion online - Detail Indication:Cough Start:09-Dec-2015 Instruction Type:Patient Education How to access health informa tion online - Detail Indication:Cough Start:09-Dec-2015 Instruction Type:Patient Education How to access health informa tion online - Detail Indication:Cough Start:09-Dec-2015 Instruction Type:Patient Education Patient Instructions Indication:Cough Start:09-Dec-2015 Instruction Type:Provider Instructions for Treatment How to access health informa tion online Indication:Rash/skin eruption Start:23-Apr-2015 Instruction Type:Patient Education How to access health informa tion online - Detail Indication:Rash/skin eruption Start:23-Apr-2015 Instruction Type:Patient Education Patient Instructions Indication:Rash/skin eruption Start:23-Apr-2015 Instruction Type:Provider Instructions for Treatment Patient Instructions Indication:Rash/skin eruption Start:18-Mar-2015 Instruction Type:Provider Instructions for Treatment Patient Instructions Indication:Acute bronchitis Start:29-Oct-2014 Instruction Type:Provider Instructions for Treatment How to access health informa tion online Indication:GERD (gastroesophageal reflux disease) Start:10-Jul-2014 Instruction Type:Patient Education How to access health informa tion online - Detail Indication:GERD (gastroesophageal reflux disease) Start:10-Jul-2014 Instruction Type:Patient Education Patient Instructions Indication:GERD (gastroesophageal reflux disease) Start:10-Jul-2014 Instruction Type:Provider Instructions for Treatment Patient Instructions Indication:GERD (gastroesophageal reflux disease) Start:12-May-2013 Instruction Type:Provider Instructions for Treatment [facility]; [facility] Work Phone: Instructions* Name Dates Details Patient Instructions Indication:Nonsmoker Start:06-Jul-2022 Instruction Type:Provider Instructions for Treatment How to Access Health Informa tion Online using Patient Portal and [employer] Apps Indication:Nonsmoker Start:06-Jul-2022 Instruction Type:Patient Education Patient Instructions Indication:BMI 26.0-26.9,adult Start:05-May-2022 Instruction Type:Provider Instructions for Treatment How to Access Health Informa tion Online using Patient Portal and [employer]rd [employer] Apps Indication:BMI 26.0-26.9,adult Start:05-May-2022 Instruction Type:Patient Education Patient Instructions Indication:Black tarry stools Start:13-Mar-2022 Instruction Type:Provider Instructions for Treatment Patient Instructions Indication:Nonsmoker Start:01-Jan-2022 Instruction Type:Provider Instructions for Treatment How to Access Health Informa tion Online using Patient Portal and [employer]rd [employer] Apps Indication:Nonsmoker Start:01-Jan-2022 Instruction Type:Patient Education Patient Instructions Indication:BMI 28.0-28.9,adult Start:18-Jun-2021 Instruction Type:Provider Instructions for Treatment How to Access Health Informa tion Online using Patient Portal and [employer]rd [employer] Apps Indication:BMI 28.0-28.9,adult Start:18-Jun-2021 Instruction Type:Patient Education How to Access Health Informa tion Online using Patient Portal and [employer]rd [employer] Apps Indication:Nonsmoker Start:23-Dec-2020 Instruction Type:Patient Education Patient Instructions Indication:Nonsmoker Start:23-Dec-2020 Instruction Type:Provider Instructions for Treatment How to Access Health Informa tion Online using Patient Portal and [employer]rd [employer] Apps Indication:Nonsmoker Start:11-Dec-2020 Instruction Type:Patient Education Patient Instructions Indication:Nonsmoker Start:11-Dec-2020 Instruction Type:Provider Instructions for Treatment How to access health informa tion online Indication:BMI 28.0-28.9,adult Start:18-Jul-2020 Instruction Type:Patient Education How to access health informa tion online - Detail Indication:BMI 28.0-28.9,adult Start:18-Jul-2020 Instruction Type:Patient Education Patient Instructions Indication:BMI 28.0-28.9,adult Start:18-Jul-2020 Instruction Type:Provider Instructions for Treatment How to access health informa tion online Indication:Nonsmoker Start:11-Jul-2020 Instruction Type:Patient Education How to access health informa tion online - Detail Indication:Nonsmoker Start:11-Jul-2020 Instruction Type:Patient Education Patient Instructions Indication:Nonsmoker Start:11-Jul-2020 Instruction Type:Provider Instructions for Treatment How to access health informa tion online Indication:BMI 27.0-27.9,adult Start:12-Jun-2020 Instruction Type:Patient Education How to access health informa tion online - Detail Indication:BMI 27.0-27.9,adult Start:12-Jun-2020 Instruction Type:Patient Education Patient Instructions Indication:BMI 27.0-27.9,adult Start:12-Jun-2020 Instruction Type:Provider Instructions for Treatment How to access health informa tion online Indication:BMI 27.0-27.9,adult Start:29-Apr-2020 Instruction Type:Patient Education How to access health informa tion online - Detail Indication:BMI 27.0-27.9,adult Start:29-Apr-2020 Instruction Type:Patient Education Patient Instructions Indication:BMI 27.0-27.9,adult Start:29-Apr-2020 Instruction Type:Provider Instructions for Treatment How to access health informa tion online Indication:Nonsmoker Start:21-Dec-2019 Instruction Type:Patient Education How to access health informa tion online - Detail Indication:Nonsmoker Start:21-Dec-2019 Instruction Type:Patient Education Patient Instructions Indication:Nonsmoker Start:21-Dec-2019 Instruction Type:Provider Instructions for Treatment How to access health informa tion online Indication:Nonsmoker Start:07-Dec-2019 Instruction Type:Patient Education How to access health informa tion online - Detail Indication:Nonsmoker Start:07-Dec-2019 Instruction Type:Patient Education Patient Instructions Indication:Nonsmoker Start:07-Dec-2019 Instruction Type:Provider Instructions for Treatment How to access health informa tion online Indication:BMI 27.0-27.9,adult Start:16-Nov-2019 Instruction Type:Patient Education How to access health informa tion online - Detail Indication:BMI 27.0-27.9,adult Start:16-Nov-2019 Instruction Type:Patient Education Patient Instructions Indication:BMI 27.0-27.9,adult Start:16-Nov-2019 Instruction Type:Provider Instructions for Treatment How to access health informa tion online Indication:BMI 28.0-28.9,adult Start:07-Sep-2019 Instruction Type:Patient Education How to access health informa tion online - Detail Indication:BMI 28.0-28.9,adult Start:07-Sep-2019 Instruction Type:Patient Education Patient Instructions Indication:Post-nasal drainage Start:07-Sep-2019 Instruction Type:Provider Instructions for Treatment How to access health informa tion online Indication:Hypertension, benign Start:17-May-2019 Instruction Type:Patient Education How to access health informa tion online - Detail Indication:Hypertension, benign Start:17-May-2019 Instruction Type:Patient Education Patient Instructions Indication:Hypertension, benign Start:17-May-2019 Instruction Type:Provider Instructions for Treatment How to access health informa tion online Indication:Nonsmoker Start:14-Nov-2018 Instruction Type:Patient Education How to access health informa tion online - Detail Indication:Nonsmoker Start:14-Nov-2018 Instruction Type:Patient Education Patient Instructions Indication:Nonsmoker Start:14-Nov-2018 Instruction Type:Provider Instructions for Treatment How to access health informa tion online Indication:Nonsmoker Start:14-Sep-2018 Instruction Type:Patient Education How to access health informa tion online - Detail Indication:Nonsmoker Start:14-Sep-2018 Instruction Type:Patient Education Patient Instructions Indication:Nonsmoker Start:14-Sep-2018 Instruction Type:Provider Instructions for Treatment How to access health informa tion online Indication:Nonsmoker Start:04-Jul-2018 Instruction Type:Patient Education Patient Instructions Indication:Nonsmoker Start:04-Jul-2018 Instruction Type:Provider Instructions for Treatment How to access health informa tion online Indication:BMI 27.0-27.9,adult Start:14-Jun-2018 Instruction Type:Patient Education How to access health informa tion online - Detail Indication:BMI 27.0-27.9,adult Start:14-Jun-2018 Instruction Type:Patient Education Patient Instructions Indication:BMI 27.0-27.9,adult Start:14-Jun-2018 Instruction Type:Provider Instructions for Treatment How to access health informa tion online Indication:Need for prophylactic vaccination and inoculation against influenza (Renamed from Need for immunization against influenza) Start:19-May-2018 Instruction Type:Patient Education How to access health informa tion online - Detail Indication:Need for prophylactic vaccination and inoculation against influenza (Renamed from Need for immunization against influenza) Start:19-May-2018 Instruction Type:Patient Education Patient Instructions Indication:Need for prophylactic vaccination and inoculation against influenza (Renamed from Need for immunization against influenza) Start:19-May-2018 Instruction Type:Provider Instructions for Treatment How to access health informa tion online Indication:Nonsmoker Start:16-Nov-2017 Instruction Type:Patient Education How to access health informa tion online - Detail Indication:Nonsmoker Start:16-Nov-2017 Instruction Type:Patient Education Patient Instructions Indication:Nonsmoker Start:16-Nov-2017 Instruction Type:Provider Instructions for Treatment How to access health informa tion online Indication:Nonsmoker Start:10-Nov-2017 Instruction Type:Patient Education How to access health informa tion online - Detail Indication:Nonsmoker Start:10-Nov-2017 Instruction Type:Patient Education Patient Instructions Indication:Nonsmoker Start:10-Nov-2017 Instruction Type:Provider Instructions for Treatment How to access health informa tion online Indication:Nonsmoker Start:02-Nov-2016 Instruction Type:Patient Education How to access health informa tion online - Detail Indication:Nonsmoker Start:02-Nov-2016 Instruction Type:Patient Education Patient Instructions Indication:Nonsmoker Start:02-Nov-2016 Instruction Type:Provider Instructions for Treatment How to access health informa tion online - Detail Indication:Bronchitis Start:08-Sep-2016 Instruction Type:Patient Education Patient Instructions Indication:Bronchitis Start:08-Sep-2016 Instruction Type:Provider Instructions for Treatment How to access health informa tion online Indication:Encounter for screening mammogram for breast cancer (Renamed from Encounter for screening mammogram for malignant neoplasm of breast) Start:19-May-2016 Instruction Type:Patient Education How to access health informa tion online - Detail Indication:Encounter for screening mammogram for breast cancer (Renamed from Encounter for screening mammogram for malignant neoplasm of breast) Start:19-May-2016 Instruction Type:Patient Education Patient Instructions Indication:Encounter for screening mammogram for breast cancer (Renamed from Encounter for screening mammogram for malignant neoplasm of breast) Start:19-May-2016 Instruction Type:Provider Instructions for Treatment Patient Instructions Indication:Acute bronchitis due to other specified organisms Start:07-May-2016 Instruction Type:Provider Instructions for Treatment How to access health informa tion online Indication:Cough Start:08-Apr-2016 Instruction Type:Patient Education How to access health informa tion online - Detail Indication:Cough Start:08-Apr-2016 Instruction Type:Patient Education Patient Instructions Indication:Cough Start:08-Apr-2016 Instruction Type:Provider Instructions for Treatment How to access health informa tion online Indication:Cough Start:31-Mar-2016 Instruction Type:Patient Education How to access health informa tion online - Detail Indication:Cough Start:31-Mar-2016 Instruction Type:Patient Education Patient Instructions Indication:Cough Start:31-Mar-2016 Instruction Type:Provider Instructions for Treatment How to access health informa tion online - Detail Indication:Cough Start:09-Dec-2015 Instruction Type:Patient Education How to access health informa tion online - Detail Indication:Cough Start:09-Dec-2015 Instruction Type:Patient Education How to access health informa tion online - Detail Indication:Cough Start:09-Dec-2015 Instruction Type:Patient Education Patient Instructions Indication:Cough Start:09-Dec-2015 Instruction Type:Provider Instructions for Treatment How to access health informa tion online Indication:Rash/skin eruption Start:23-Apr-2015 Instruction Type:Patient Education How to access health informa tion online - Detail Indication:Rash/skin eruption Start:23-Apr-2015 Instruction Type:Patient Education Patient Instructions Indication:Rash/skin eruption Start:23-Apr-2015 Instruction Type:Provider Instructions for Treatment Patient Instructions Indication:Rash/skin eruption Start:18-Mar-2015 Instruction Type:Provider Instructions for Treatment Patient Instructions Indication:Acute bronchitis Start:29-Oct-2014 Instruction Type:Provider Instructions for Treatment How to access health informa tion online Indication:GERD (gastroesophageal reflux disease) Start:10-Jul-2014 Instruction Type:Patient Education How to access health informa tion online - Detail Indication:GERD (gastroesophageal reflux disease) Start:10-Jul-2014 Instruction Type:Patient Education Patient Instructions Indication:GERD (gastroesophageal reflux disease) Start:10-Jul-2014 Instruction Type:Provider Instructions for Treatment Patient Instructions Indication:GERD (gastroesophageal reflux disease) Start:12-May-2013 Instruction Type:Provider Instructions for Treatment [facility] Work Phone: Instructions* Name Dates Details Patient Instructions Indication:BMI 28.0-28.9,adult Start:15-Jul-2022 Instruction Type:Provider Instructions for Treatment How to Access Health Informa tion Online using Patient Portal and [employer] Apps Indication:BMI 28.0-28.9,adult Start:15-Jul-2022 Instruction Type:Patient Education Patient Instructions Indication:Nonsmoker Start:06-Jul-2022 Instruction Type:Provider Instructions for Treatment How to Access Health Informa tion Online using Patient Portal and [employer] Apps Indication:Nonsmoker Start:06-Jul-2022 Instruction Type:Patient Education Patient Instructions Indication:BMI 26.0-26.9,adult Start:05-May-2022 Instruction Type:Provider Instructions for Treatment How to Access Health Informa tion Online using Patient Portal and [employer]rd [employer] Apps Indication:BMI 26.0-26.9,adult Start:05-May-2022 Instruction Type:Patient Education Patient Instructions Indication:Black tarry stools Start:13-Mar-2022 Instruction Type:Provider Instructions for Treatment Patient Instructions Indication:Nonsmoker Start:01-Jan-2022 Instruction Type:Provider Instructions for Treatment How to Access Health Informa tion Online using Patient Portal and [employer]rd [employer] Apps Indication:Nonsmoker Start:01-Jan-2022 Instruction Type:Patient Education Patient Instructions Indication:BMI 28.0-28.9,adult Start:18-Jun-2021 Instruction Type:Provider Instructions for Treatment How to Access Health Informa tion Online using Patient Portal and [employer]rd [employer] Apps Indication:BMI 28.0-28.9,adult Start:18-Jun-2021 Instruction Type:Patient Education How to Access Health Informa tion Online using Patient Portal and [employer] Apps Indication:Nonsmoker Start:23-Dec-2020 Instruction Type:Patient Education Patient Instructions Indication:Nonsmoker Start:23-Dec-2020 Instruction Type:Provider Instructions for Treatment How to Access Health Informa tion Online using Patient Portal and [employer] Apps Indication:Nonsmoker Start:11-Dec-2020 Instruction Type:Patient Education Patient Instructions Indication:Nonsmoker Start:11-Dec-2020 Instruction Type:Provider Instructions for Treatment How to access health informa tion online Indication:BMI 28.0-28.9,adult Start:18-Jul-2020 Instruction Type:Patient Education How to access health informa tion online - Detail Indication:BMI 28.0-28.9,adult Start:18-Jul-2020 Instruction Type:Patient Education Patient Instructions Indication:BMI 28.0-28.9,adult Start:18-Jul-2020 Instruction Type:Provider Instructions for Treatment How to access health informa tion online Indication:Nonsmoker Start:11-Jul-2020 Instruction Type:Patient Education How to access health informa tion online - Detail Indication:Nonsmoker Start:11-Jul-2020 Instruction Type:Patient Education Patient Instructions Indication:Nonsmoker Start:11-Jul-2020 Instruction Type:Provider Instructions for Treatment How to access health informa tion online Indication:BMI 27.0-27.9,adult Start:12-Jun-2020 Instruction Type:Patient Education How to access health informa tion online - Detail Indication:BMI 27.0-27.9,adult Start:12-Jun-2020 Instruction Type:Patient Education Patient Instructions Indication:BMI 27.0-27.9,adult Start:12-Jun-2020 Instruction Type:Provider Instructions for Treatment How to access health informa tion online Indication:BMI 27.0-27.9,adult Start:29-Apr-2020 Instruction Type:Patient Education How to access health informa tion online - Detail Indication:BMI 27.0-27.9,adult Start:29-Apr-2020 Instruction Type:Patient Education Patient Instructions Indication:BMI 27.0-27.9,adult Start:29-Apr-2020 Instruction Type:Provider Instructions for Treatment How to access health informa tion online Indication:Nonsmoker Start:21-Dec-2019 Instruction Type:Patient Education How to access health informa tion online - Detail Indication:Nonsmoker Start:21-Dec-2019 Instruction Type:Patient Education Patient Instructions Indication:Nonsmoker Start:21-Dec-2019 Instruction Type:Provider Instructions for Treatment How to access health informa tion online Indication:Nonsmoker Start:07-Dec-2019 Instruction Type:Patient Education How to access health informa tion online - Detail Indication:Nonsmoker Start:07-Dec-2019 Instruction Type:Patient Education Patient Instructions Indication:Nonsmoker Start:07-Dec-2019 Instruction Type:Provider Instructions for Treatment How to access health informa tion online Indication:BMI 27.0-27.9,adult Start:16-Nov-2019 Instruction Type:Patient Education How to access health informa tion online - Detail Indication:BMI 27.0-27.9,adult Start:16-Nov-2019 Instruction Type:Patient Education Patient Instructions Indication:BMI 27.0-27.9,adult Start:16-Nov-2019 Instruction Type:Provider Instructions for Treatment How to access health informa tion online Indication:BMI 28.0-28.9,adult Start:07-Sep-2019 Instruction Type:Patient Education How to access health informa tion online - Detail Indication:BMI 28.0-28.9,adult Start:07-Sep-2019 Instruction Type:Patient Education Patient Instructions Indication:Post-nasal drainage Start:07-Sep-2019 Instruction Type:Provider Instructions for Treatment How to access health informa tion online Indication:Hypertension, benign Start:17-May-2019 Instruction Type:Patient Education How to access health informa tion online - Detail Indication:Hypertension, benign Start:17-May-2019 Instruction Type:Patient Education Patient Instructions Indication:Hypertension, benign Start:17-May-2019 Instruction Type:Provider Instructions for Treatment How to access health informa tion online Indication:Nonsmoker Start:14-Nov-2018 Instruction Type:Patient Education How to access health informa tion online - Detail Indication:Nonsmoker Start:14-Nov-2018 Instruction Type:Patient Education Patient Instructions Indication:Nonsmoker Start:14-Nov-2018 Instruction Type:Provider Instructions for Treatment How to access health informa tion online Indication:Nonsmoker Start:14-Sep-2018 Instruction Type:Patient Education How to access health informa tion online - Detail Indication:Nonsmoker Start:14-Sep-2018 Instruction Type:Patient Education Patient Instructions Indication:Nonsmoker Start:14-Sep-2018 Instruction Type:Provider Instructions for Treatment How to access health informa tion online Indication:Nonsmoker Start:04-Jul-2018 Instruction Type:Patient Education Patient Instructions Indication:Nonsmoker Start:04-Jul-2018 Instruction Type:Provider Instructions for Treatment How to access health informa tion online Indication:BMI 27.0-27.9,adult Start:14-Jun-2018 Instruction Type:Patient Education How to access health informa tion online - Detail Indication:BMI 27.0-27.9,adult Start:14-Jun-2018 Instruction Type:Patient Education Patient Instructions Indication:BMI 27.0-27.9,adult Start:14-Jun-2018 Instruction Type:Provider Instructions for Treatment How to access health informa tion online Indication:Need for prophylactic vaccination and inoculation against influenza (Renamed from Need for immunization against influenza) Start:19-May-2018 Instruction Type:Patient Education How to access health informa tion online - Detail Indication:Need for prophylactic vaccination and inoculation against influenza (Renamed from Need for immunization against influenza) Start:19-May-2018 Instruction Type:Patient Education Patient Instructions Indication:Need for prophylactic vaccination and inoculation against influenza (Renamed from Need for immunization against influenza) Start:19-May-2018 Instruction Type:Provider Instructions for Treatment How to access health informa tion online Indication:Nonsmoker Start:16-Nov-2017 Instruction Type:Patient Education How to access health informa tion online - Detail Indication:Nonsmoker Start:16-Nov-2017 Instruction Type:Patient Education Patient Instructions Indication:Nonsmoker Start:16-Nov-2017 Instruction Type:Provider Instructions for Treatment How to access health informa tion online Indication:Nonsmoker Start:10-Nov-2017 Instruction Type:Patient Education How to access health informa tion online - Detail Indication:Nonsmoker Start:10-Nov-2017 Instruction Type:Patient Education Patient Instructions Indication:Nonsmoker Start:10-Nov-2017 Instruction Type:Provider Instructions for Treatment How to access health informa tion online Indication:Nonsmoker Start:02-Nov-2016 Instruction Type:Patient Education How to access health informa tion online - Detail Indication:Nonsmoker Start:02-Nov-2016 Instruction Type:Patient Education Patient Instructions Indication:Nonsmoker Start:02-Nov-2016 Instruction Type:Provider Instructions for Treatment How to access health informa tion online - Detail Indication:Bronchitis Start:08-Sep-2016 Instruction Type:Patient Education Patient Instructions Indication:Bronchitis Start:08-Sep-2016 Instruction Type:Provider Instructions for Treatment How to access health informa tion online Indication:Encounter for screening mammogram for breast cancer (Renamed from Encounter for screening mammogram for malignant neoplasm of breast) Start:19-May-2016 Instruction Type:Patient Education How to access health informa tion online - Detail Indication:Encounter for screening mammogram for breast cancer (Renamed from Encounter for screening mammogram for malignant neoplasm of breast) Start:19-May-2016 Instruction Type:Patient Education Patient Instructions Indication:Encounter for screening mammogram for breast cancer (Renamed from Encounter for screening mammogram for malignant neoplasm of breast) Start:19-May-2016 Instruction Type:Provider Instructions for Treatment Patient Instructions Indication:Acute bronchitis due to other specified organisms Start:07-May-2016 Instruction Type:Provider Instructions for Treatment How to access health informa tion online Indication:Cough Start:08-Apr-2016 Instruction Type:Patient Education How to access health informa tion online - Detail Indication:Cough Start:08-Apr-2016 Instruction Type:Patient Education Patient Instructions Indication:Cough Start:08-Apr-2016 Instruction Type:Provider Instructions for Treatment How to access health informa tion online Indication:Cough Start:31-Mar-2016 Instruction Type:Patient Education How to access health informa tion online - Detail Indication:Cough Start:31-Mar-2016 Instruction Type:Patient Education Patient Instructions Indication:Cough Start:31-Mar-2016 Instruction Type:Provider Instructions for Treatment How to access health informa tion online - Detail Indication:Cough Start:09-Dec-2015 Instruction Type:Patient Education How to access health informa tion online - Detail Indication:Cough Start:09-Dec-2015 Instruction Type:Patient Education How to access health informa tion online - Detail Indication:Cough Start:09-Dec-2015 Instruction Type:Patient Education Patient Instructions Indication:Cough Start:09-Dec-2015 Instruction Type:Provider Instructions for Treatment How to access health informa tion online Indication:Rash/skin eruption Start:23-Apr-2015 Instruction Type:Patient Education How to access health informa tion online - Detail Indication:Rash/skin eruption Start:23-Apr-2015 Instruction Type:Patient Education Patient Instructions Indication:Rash/skin eruption Start:23-Apr-2015 Instruction Type:Provider Instructions for Treatment Patient Instructions Indication:Rash/skin eruption Start:18-Mar-2015 Instruction Type:Provider Instructions for Treatment Patient Instructions Indication:Acute bronchitis Start:29-Oct-2014 Instruction Type:Provider Instructions for Treatment How to access health informa tion online Indication:GERD (gastroesophageal reflux disease) Start:10-Jul-2014 Instruction Type:Patient Education How to access health informa tion online - Detail Indication:GERD (gastroesophageal reflux disease) Start:10-Jul-2014 Instruction Type:Patient Education Patient Instructions Indication:GERD (gastroesophageal reflux disease) Start:10-Jul-2014 Instruction Type:Provider Instructions for Treatment Patient Instructions Indication:GERD (gastroesophageal reflux disease) Start:12-May-2013 Instruction Type:Provider Instructions for Treatment [facility]; [facility] Work Phone: Instructions* Name Dates Details Patient Instructions Indication:BMI 28.0-28.9,adult Start:15-Jul-2022 Instruction Type:Provider Instructions for Treatment How to Access Health Informa tion Online using Patient Portal and [employer] Apps Indication:BMI 28.0-28.9,adult Start:15-Jul-2022 Instruction Type:Patient Education Patient Instructions Indication:Nonsmoker Start:06-Jul-2022 Instruction Type:Provider Instructions for Treatment How to Access Health Informa tion Online using Patient Portal and [employer]rd [employer] Apps Indication:Nonsmoker Start:06-Jul-2022 Instruction Type:Patient Education Patient Instructions Indication:BMI 26.0-26.9,adult Start:05-May-2022 Instruction Type:Provider Instructions for Treatment How to Access Health Informa tion Online using Patient Portal and [employer]rd [employer] Apps Indication:BMI 26.0-26.9,adult Start:05-May-2022 Instruction Type:Patient Education Patient Instructions Indication:Black tarry stools Start:13-Mar-2022 Instruction Type:Provider Instructions for Treatment Patient Instructions Indication:Nonsmoker Start:01-Jan-2022 Instruction Type:Provider Instructions for Treatment How to Access Health Informa tion Online using Patient Portal and [employer]rd [employer] Apps Indication:Nonsmoker Start:01-Jan-2022 Instruction Type:Patient Education Patient Instructions Indication:BMI 28.0-28.9,adult Start:18-Jun-2021 Instruction Type:Provider Instructions for Treatment How to Access Health Informa tion Online using Patient Portal and [employer]rd [employer] Apps Indication:BMI 28.0-28.9,adult Start:18-Jun-2021 Instruction Type:Patient Education How to Access Health Informa tion Online using Patient Portal and [employer] Apps Indication:Nonsmoker Start:23-Dec-2020 Instruction Type:Patient Education Patient Instructions Indication:Nonsmoker Start:23-Dec-2020 Instruction Type:Provider Instructions for Treatment How to Access Health Informa tion Online using Patient Portal and [employer] Apps Indication:Nonsmoker Start:11-Dec-2020 Instruction Type:Patient Education Patient Instructions Indication:Nonsmoker Start:11-Dec-2020 Instruction Type:Provider Instructions for Treatment How to access health informa tion online Indication:BMI 28.0-28.9,adult Start:18-Jul-2020 Instruction Type:Patient Education How to access health informa tion online - Detail Indication:BMI 28.0-28.9,adult Start:18-Jul-2020 Instruction Type:Patient Education Patient Instructions Indication:BMI 28.0-28.9,adult Start:18-Jul-2020 Instruction Type:Provider Instructions for Treatment How to access health informa tion online Indication:Nonsmoker Start:11-Jul-2020 Instruction Type:Patient Education How to access health informa tion online - Detail Indication:Nonsmoker Start:11-Jul-2020 Instruction Type:Patient Education Patient Instructions Indication:Nonsmoker Start:11-Jul-2020 Instruction Type:Provider Instructions for Treatment How to access health informa tion online Indication:BMI 27.0-27.9,adult Start:12-Jun-2020 Instruction Type:Patient Education How to access health informa tion online - Detail Indication:BMI 27.0-27.9,adult Start:12-Jun-2020 Instruction Type:Patient Education Patient Instructions Indication:BMI 27.0-27.9,adult Start:12-Jun-2020 Instruction Type:Provider Instructions for Treatment How to access health informa tion online Indication:BMI 27.0-27.9,adult Start:29-Apr-2020 Instruction Type:Patient Education How to access health informa tion online - Detail Indication:BMI 27.0-27.9,adult Start:29-Apr-2020 Instruction Type:Patient Education Patient Instructions Indication:BMI 27.0-27.9,adult Start:29-Apr-2020 Instruction Type:Provider Instructions for Treatment How to access health informa tion online Indication:Nonsmoker Start:21-Dec-2019 Instruction Type:Patient Education How to access health informa tion online - Detail Indication:Nonsmoker Start:21-Dec-2019 Instruction Type:Patient Education Patient Instructions Indication:Nonsmoker Start:21-Dec-2019 Instruction Type:Provider Instructions for Treatment How to access health informa tion online Indication:Nonsmoker Start:07-Dec-2019 Instruction Type:Patient Education How to access health informa tion online - Detail Indication:Nonsmoker Start:07-Dec-2019 Instruction Type:Patient Education Patient Instructions Indication:Nonsmoker Start:07-Dec-2019 Instruction Type:Provider Instructions for Treatment How to access health informa tion online Indication:BMI 27.0-27.9,adult Start:16-Nov-2019 Instruction Type:Patient Education How to access health informa tion online - Detail Indication:BMI 27.0-27.9,adult Start:16-Nov-2019 Instruction Type:Patient Education Patient Instructions Indication:BMI 27.0-27.9,adult Start:16-Nov-2019 Instruction Type:Provider Instructions for Treatment How to access health informa tion online Indication:BMI 28.0-28.9,adult Start:07-Sep-2019 Instruction Type:Patient Education How to access health informa tion online - Detail Indication:BMI 28.0-28.9,adult Start:07-Sep-2019 Instruction Type:Patient Education Patient Instructions Indication:Post-nasal drainage Start:07-Sep-2019 Instruction Type:Provider Instructions for Treatment How to access health informa tion online Indication:Hypertension, benign Start:17-May-2019 Instruction Type:Patient Education How to access health informa tion online - Detail Indication:Hypertension, benign Start:17-May-2019 Instruction Type:Patient Education Patient Instructions Indication:Hypertension, benign Start:17-May-2019 Instruction Type:Provider Instructions for Treatment How to access health informa tion online Indication:Nonsmoker Start:14-Nov-2018 Instruction Type:Patient Education How to access health informa tion online - Detail Indication:Nonsmoker Start:14-Nov-2018 Instruction Type:Patient Education Patient Instructions Indication:Nonsmoker Start:14-Nov-2018 Instruction Type:Provider Instructions for Treatment How to access health informa tion online Indication:Nonsmoker Start:14-Sep-2018 Instruction Type:Patient Education How to access health informa tion online - Detail Indication:Nonsmoker Start:14-Sep-2018 Instruction Type:Patient Education Patient Instructions Indication:Nonsmoker Start:14-Sep-2018 Instruction Type:Provider Instructions for Treatment How to access health informa tion online Indication:Nonsmoker Start:04-Jul-2018 Instruction Type:Patient Education Patient Instructions Indication:Nonsmoker Start:04-Jul-2018 Instruction Type:Provider Instructions for Treatment How to access health informa tion online Indication:BMI 27.0-27.9,adult Start:14-Jun-2018 Instruction Type:Patient Education How to access health informa tion online - Detail Indication:BMI 27.0-27.9,adult Start:14-Jun-2018 Instruction Type:Patient Education Patient Instructions Indication:BMI 27.0-27.9,adult Start:14-Jun-2018 Instruction Type:Provider Instructions for Treatment How to access health informa tion online Indication:Need for prophylactic vaccination and inoculation against influenza (Renamed from Need for immunization against influenza) Start:19-May-2018 Instruction Type:Patient Education How to access health informa tion online - Detail Indication:Need for prophylactic vaccination and inoculation against influenza (Renamed from Need for immunization against influenza) Start:19-May-2018 Instruction Type:Patient Education Patient Instructions Indication:Need for prophylactic vaccination and inoculation against influenza (Renamed from Need for immunization against influenza) Start:19-May-2018 Instruction Type:Provider Instructions for Treatment How to access health informa tion online Indication:Nonsmoker Start:16-Nov-2017 Instruction Type:Patient Education How to access health informa tion online - Detail Indication:Nonsmoker Start:16-Nov-2017 Instruction Type:Patient Education Patient Instructions Indication:Nonsmoker Start:16-Nov-2017 Instruction Type:Provider Instructions for Treatment How to access health informa tion online Indication:Nonsmoker Start:10-Nov-2017 Instruction Type:Patient Education How to access health informa tion online - Detail Indication:Nonsmoker Start:10-Nov-2017 Instruction Type:Patient Education Patient Instructions Indication:Nonsmoker Start:10-Nov-2017 Instruction Type:Provider Instructions for Treatment How to access health informa tion online Indication:Nonsmoker Start:02-Nov-2016 Instruction Type:Patient Education How to access health informa tion online - Detail Indication:Nonsmoker Start:02-Nov-2016 Instruction Type:Patient Education Patient Instructions Indication:Nonsmoker Start:02-Nov-2016 Instruction Type:Provider Instructions for Treatment How to access health informa tion online - Detail Indication:Bronchitis Start:08-Sep-2016 Instruction Type:Patient Education Patient Instructions Indication:Bronchitis Start:08-Sep-2016 Instruction Type:Provider Instructions for Treatment How to access health informa tion online Indication:Encounter for screening mammogram for breast cancer (Renamed from Encounter for screening mammogram for malignant neoplasm of breast) Start:19-May-2016 Instruction Type:Patient Education How to access health informa tion online - Detail Indication:Encounter for screening mammogram for breast cancer (Renamed from Encounter for screening mammogram for malignant neoplasm of breast) Start:19-May-2016 Instruction Type:Patient Education Patient Instructions Indication:Encounter for screening mammogram for breast cancer (Renamed from Encounter for screening mammogram for malignant neoplasm of breast) Start:19-May-2016 Instruction Type:Provider Instructions for Treatment Patient Instructions Indication:Acute bronchitis due to other specified organisms Start:07-May-2016 Instruction Type:Provider Instructions for Treatment How to access health informa tion online Indication:Cough Start:08-Apr-2016 Instruction Type:Patient Education How to access health informa tion online - Detail Indication:Cough Start:08-Apr-2016 Instruction Type:Patient Education Patient Instructions Indication:Cough Start:08-Apr-2016 Instruction Type:Provider Instructions for Treatment How to access health informa tion online Indication:Cough Start:31-Mar-2016 Instruction Type:Patient Education How to access health informa tion online - Detail Indication:Cough Start:31-Mar-2016 Instruction Type:Patient Education Patient Instructions Indication:Cough Start:31-Mar-2016 Instruction Type:Provider Instructions for Treatment How to access health informa tion online - Detail Indication:Cough Start:09-Dec-2015 Instruction Type:Patient Education How to access health informa tion online - Detail Indication:Cough Start:09-Dec-2015 Instruction Type:Patient Education How to access health informa tion online - Detail Indication:Cough Start:09-Dec-2015 Instruction Type:Patient Education Patient Instructions Indication:Cough Start:09-Dec-2015 Instruction Type:Provider Instructions for Treatment How to access health informa tion online Indication:Rash/skin eruption Start:23-Apr-2015 Instruction Type:Patient Education How to access health informa tion online - Detail Indication:Rash/skin eruption Start:23-Apr-2015 Instruction Type:Patient Education Patient Instructions Indication:Rash/skin eruption Start:23-Apr-2015 Instruction Type:Provider Instructions for Treatment Patient Instructions Indication:Rash/skin eruption Start:18-Mar-2015 Instruction Type:Provider Instructions for Treatment Patient Instructions Indication:Acute bronchitis Start:29-Oct-2014 Instruction Type:Provider Instructions for Treatment How to access health informa tion online Indication:GERD (gastroesophageal reflux disease) Start:10-Jul-2014 Instruction Type:Patient Education How to access health informa tion online - Detail Indication:GERD (gastroesophageal reflux disease) Start:10-Jul-2014 Instruction Type:Patient Education Patient Instructions Indication:GERD (gastroesophageal reflux disease) Start:10-Jul-2014 Instruction Type:Provider Instructions for Treatment Patient Instructions Indication:GERD (gastroesophageal reflux disease) Start:12-May-2013 Instruction Type:Provider Instructions for Treatment [facility] Work Phone: Instructions* Name Dates Details Patient Instructions Indication:BMI 28.0-28.9,adult Start:15-Jul-2022 Instruction Type:Provider Instructions for Treatment How to Access Health Informa tion Online using Patient Portal and [employer]rd [employer] Apps Indication:BMI 28.0-28.9,adult Start:15-Jul-2022 Instruction Type:Patient Education Patient Instructions Indication:Nonsmoker Start:06-Jul-2022 Instruction Type:Provider Instructions for Treatment How to Access Health Informa tion Online using Patient Portal and [employer]rd [employer] Apps Indication:Nonsmoker Start:06-Jul-2022 Instruction Type:Patient Education Patient Instructions Indication:BMI 26.0-26.9,adult Start:05-May-2022 Instruction Type:Provider Instructions for Treatment How to Access Health Informa tion Online using Patient Portal and [employer]rd [employer] Apps Indication:BMI 26.0-26.9,adult Start:05-May-2022 Instruction Type:Patient Education Patient Instructions Indication:Black tarry stools Start:13-Mar-2022 Instruction Type:Provider Instructions for Treatment Patient Instructions Indication:Nonsmoker Start:01-Jan-2022 Instruction Type:Provider Instructions for Treatment How to Access Health Informa tion Online using Patient Portal and [employer]rd [employer] Apps Indication:Nonsmoker Start:01-Jan-2022 Instruction Type:Patient Education Patient Instructions Indication:BMI 28.0-28.9,adult Start:18-Jun-2021 Instruction Type:Provider Instructions for Treatment How to Access Health Informa tion Online using Patient Portal and [employer]rd [employer] Apps Indication:BMI 28.0-28.9,adult Start:18-Jun-2021 Instruction Type:Patient Education How to Access Health Informa tion Online using Patient Portal and [employer]rd [employer] Apps Indication:Nonsmoker Start:23-Dec-2020 Instruction Type:Patient Education Patient Instructions Indication:Nonsmoker Start:23-Dec-2020 Instruction Type:Provider Instructions for Treatment How to Access Health Informa tion Online using Patient Portal and [employer]rd [employer] Apps Indication:Nonsmoker Start:11-Dec-2020 Instruction Type:Patient Education Patient Instructions Indication:Nonsmoker Start:11-Dec-2020 Instruction Type:Provider Instructions for Treatment How to access health informa tion online Indication:BMI 28.0-28.9,adult Start:18-Jul-2020 Instruction Type:Patient Education How to access health informa tion online - Detail Indication:BMI 28.0-28.9,adult Start:18-Jul-2020 Instruction Type:Patient Education Patient Instructions Indication:BMI 28.0-28.9,adult Start:18-Jul-2020 Instruction Type:Provider Instructions for Treatment How to access health informa tion online Indication:Nonsmoker Start:11-Jul-2020 Instruction Type:Patient Education How to access health informa tion online - Detail Indication:Nonsmoker Start:11-Jul-2020 Instruction Type:Patient Education Patient Instructions Indication:Nonsmoker Start:11-Jul-2020 Instruction Type:Provider Instructions for Treatment How to access health informa tion online Indication:BMI 27.0-27.9,adult Start:12-Jun-2020 Instruction Type:Patient Education How to access health informa tion online - Detail Indication:BMI 27.0-27.9,adult Start:12-Jun-2020 Instruction Type:Patient Education Patient Instructions Indication:BMI 27.0-27.9,adult Start:12-Jun-2020 Instruction Type:Provider Instructions for Treatment How to access health informa tion online Indication:BMI 27.0-27.9,adult Start:29-Apr-2020 Instruction Type:Patient Education How to access health informa tion online - Detail Indication:BMI 27.0-27.9,adult Start:29-Apr-2020 Instruction Type:Patient Education Patient Instructions Indication:BMI 27.0-27.9,adult Start:29-Apr-2020 Instruction Type:Provider Instructions for Treatment How to access health informa tion online Indication:Nonsmoker Start:21-Dec-2019 Instruction Type:Patient Education How to access health informa tion online - Detail Indication:Nonsmoker Start:21-Dec-2019 Instruction Type:Patient Education Patient Instructions Indication:Nonsmoker Start:21-Dec-2019 Instruction Type:Provider Instructions for Treatment How to access health informa tion online Indication:Nonsmoker Start:07-Dec-2019 Instruction Type:Patient Education How to access health informa tion online - Detail Indication:Nonsmoker Start:07-Dec-2019 Instruction Type:Patient Education Patient Instructions Indication:Nonsmoker Start:07-Dec-2019 Instruction Type:Provider Instructions for Treatment How to access health informa tion online Indication:BMI 27.0-27.9,adult Start:16-Nov-2019 Instruction Type:Patient Education How to access health informa tion online - Detail Indication:BMI 27.0-27.9,adult Start:16-Nov-2019 Instruction Type:Patient Education Patient Instructions Indication:BMI 27.0-27.9,adult Start:16-Nov-2019 Instruction Type:Provider Instructions for Treatment How to access health informa tion online Indication:BMI 28.0-28.9,adult Start:07-Sep-2019 Instruction Type:Patient Education How to access health informa tion online - Detail Indication:BMI 28.0-28.9,adult Start:07-Sep-2019 Instruction Type:Patient Education Patient Instructions Indication:Post-nasal drainage Start:07-Sep-2019 Instruction Type:Provider Instructions for Treatment How to access health informa tion online Indication:Hypertension, benign Start:17-May-2019 Instruction Type:Patient Education How to access health informa tion online - Detail Indication:Hypertension, benign Start:17-May-2019 Instruction Type:Patient Education Patient Instructions Indication:Hypertension, benign Start:17-May-2019 Instruction Type:Provider Instructions for Treatment How to access health informa tion online Indication:Nonsmoker Start:14-Nov-2018 Instruction Type:Patient Education How to access health informa tion online - Detail Indication:Nonsmoker Start:14-Nov-2018 Instruction Type:Patient Education Patient Instructions Indication:Nonsmoker Start:14-Nov-2018 Instruction Type:Provider Instructions for Treatment How to access health informa tion online Indication:Nonsmoker Start:14-Sep-2018 Instruction Type:Patient Education How to access health informa tion online - Detail Indication:Nonsmoker Start:14-Sep-2018 Instruction Type:Patient Education Patient Instructions Indication:Nonsmoker Start:14-Sep-2018 Instruction Type:Provider Instructions for Treatment How to access health informa tion online Indication:Nonsmoker Start:04-Jul-2018 Instruction Type:Patient Education Patient Instructions Indication:Nonsmoker Start:04-Jul-2018 Instruction Type:Provider Instructions for Treatment How to access health informa tion online Indication:BMI 27.0-27.9,adult Start:14-Jun-2018 Instruction Type:Patient Education How to access health informa tion online - Detail Indication:BMI 27.0-27.9,adult Start:14-Jun-2018 Instruction Type:Patient Education Patient Instructions Indication:BMI 27.0-27.9,adult Start:14-Jun-2018 Instruction Type:Provider Instructions for Treatment How to access health informa tion online Indication:Need for prophylactic vaccination and inoculation against influenza (Renamed from Need for immunization against influenza) Start:19-May-2018 Instruction Type:Patient Education How to access health informa tion online - Detail Indication:Need for prophylactic vaccination and inoculation against influenza (Renamed from Need for immunization against influenza) Start:19-May-2018 Instruction Type:Patient Education Patient Instructions Indication:Need for prophylactic vaccination and inoculation against influenza (Renamed from Need for immunization against influenza) Start:19-May-2018 Instruction Type:Provider Instructions for Treatment How to access health informa tion online Indication:Nonsmoker Start:16-Nov-2017 Instruction Type:Patient Education How to access health informa tion online - Detail Indication:Nonsmoker Start:16-Nov-2017 Instruction Type:Patient Education Patient Instructions Indication:Nonsmoker Start:16-Nov-2017 Instruction Type:Provider Instructions for Treatment How to access health informa tion online Indication:Nonsmoker Start:10-Nov-2017 Instruction Type:Patient Education How to access health informa tion online - Detail Indication:Nonsmoker Start:10-Nov-2017 Instruction Type:Patient Education Patient Instructions Indication:Nonsmoker Start:10-Nov-2017 Instruction Type:Provider Instructions for Treatment How to access health informa tion online Indication:Nonsmoker Start:02-Nov-2016 Instruction Type:Patient Education How to access health informa tion online - Detail Indication:Nonsmoker Start:02-Nov-2016 Instruction Type:Patient Education Patient Instructions Indication:Nonsmoker Start:02-Nov-2016 Instruction Type:Provider Instructions for Treatment How to access health informa tion online - Detail Indication:Bronchitis Start:08-Sep-2016 Instruction Type:Patient Education Patient Instructions Indication:Bronchitis Start:08-Sep-2016 Instruction Type:Provider Instructions for Treatment How to access health informa tion online Indication:Encounter for screening mammogram for breast cancer (Renamed from Encounter for screening mammogram for malignant neoplasm of breast) Start:19-May-2016 Instruction Type:Patient Education How to access health informa tion online - Detail Indication:Encounter for screening mammogram for breast cancer (Renamed from Encounter for screening mammogram for malignant neoplasm of breast) Start:19-May-2016 Instruction Type:Patient Education Patient Instructions Indication:Encounter for screening mammogram for breast cancer (Renamed from Encounter for screening mammogram for malignant neoplasm of breast) Start:19-May-2016 Instruction Type:Provider Instructions for Treatment Patient Instructions Indication:Acute bronchitis due to other specified organisms Start:07-May-2016 Instruction Type:Provider Instructions for Treatment How to access health informa tion online Indication:Cough Start:08-Apr-2016 Instruction Type:Patient Education How to access health informa tion online - Detail Indication:Cough Start:08-Apr-2016 Instruction Type:Patient Education Patient Instructions Indication:Cough Start:08-Apr-2016 Instruction Type:Provider Instructions for Treatment How to access health informa tion online Indication:Cough Start:31-Mar-2016 Instruction Type:Patient Education How to access health informa tion online - Detail Indication:Cough Start:31-Mar-2016 Instruction Type:Patient Education Patient Instructions Indication:Cough Start:31-Mar-2016 Instruction Type:Provider Instructions for Treatment How to access health informa tion online - Detail Indication:Cough Start:09-Dec-2015 Instruction Type:Patient Education How to access health informa tion online - Detail Indication:Cough Start:09-Dec-2015 Instruction Type:Patient Education How to access health informa tion online - Detail Indication:Cough Start:09-Dec-2015 Instruction Type:Patient Education Patient Instructions Indication:Cough Start:09-Dec-2015 Instruction Type:Provider Instructions for Treatment How to access health informa tion online Indication:Rash/skin eruption Start:23-Apr-2015 Instruction Type:Patient Education How to access health informa tion online - Detail Indication:Rash/skin eruption Start:23-Apr-2015 Instruction Type:Patient Education Patient Instructions Indication:Rash/skin eruption Start:23-Apr-2015 Instruction Type:Provider Instructions for Treatment Patient Instructions Indication:Rash/skin eruption Start:18-Mar-2015 Instruction Type:Provider Instructions for Treatment Patient Instructions Indication:Acute bronchitis Start:29-Oct-2014 Instruction Type:Provider Instructions for Treatment How to access health informa tion online Indication:GERD (gastroesophageal reflux disease) Start:10-Jul-2014 Instruction Type:Patient Education How to access health informa tion online - Detail Indication:GERD (gastroesophageal reflux disease) Start:10-Jul-2014 Instruction Type:Patient Education Patient Instructions Indication:GERD (gastroesophageal reflux disease) Start:10-Jul-2014 Instruction Type:Provider Instructions for Treatment Patient Instructions Indication:GERD (gastroesophageal reflux disease) Start:12-May-2013 Instruction Type:Provider Instructions for Treatment [facility]; [facility] Work Phone: Instructions* Name Dates Details Patient Instructions Indication:BMI 28.0-28.9,adult Start:15-Jul-2022 Instruction Type:Provider Instructions for Treatment How to Access Health Informa tion Online using Patient Portal and [employer]rd [employer] Apps Indication:BMI 28.0-28.9,adult Start:15-Jul-2022 Instruction Type:Patient Education Patient Instructions Indication:Nonsmoker Start:06-Jul-2022 Instruction Type:Provider Instructions for Treatment How to Access Health Informa tion Online using Patient Portal and [employer]rd [employer] Apps Indication:Nonsmoker Start:06-Jul-2022 Instruction Type:Patient Education Patient Instructions Indication:BMI 26.0-26.9,adult Start:05-May-2022 Instruction Type:Provider Instructions for Treatment How to Access Health Informa tion Online using Patient Portal and [employer]rd [employer] Apps Indication:BMI 26.0-26.9,adult Start:05-May-2022 Instruction Type:Patient Education Patient Instructions Indication:Black tarry stools Start:13-Mar-2022 Instruction Type:Provider Instructions for Treatment Patient Instructions Indication:Nonsmoker Start:01-Jan-2022 Instruction Type:Provider Instructions for Treatment How to Access Health Informa tion Online using Patient Portal and [employer]rd [employer] Apps Indication:Nonsmoker Start:01-Jan-2022 Instruction Type:Patient Education Patient Instructions Indication:BMI 28.0-28.9,adult Start:18-Jun-2021 Instruction Type:Provider Instructions for Treatment How to Access Health Informa tion Online using Patient Portal and [employer]rd [employer] Apps Indication:BMI 28.0-28.9,adult Start:18-Jun-2021 Instruction Type:Patient Education How to Access Health Informa tion Online using Patient Portal and [employer]rd [employer] Apps Indication:Nonsmoker Start:23-Dec-2020 Instruction Type:Patient Education Patient Instructions Indication:Nonsmoker Start:23-Dec-2020 Instruction Type:Provider Instructions for Treatment How to Access Health Informa tion Online using Patient Portal and [employer]rd [employer] Apps Indication:Nonsmoker Start:11-Dec-2020 Instruction Type:Patient Education Patient Instructions Indication:Nonsmoker Start:11-Dec-2020 Instruction Type:Provider Instructions for Treatment How to access health informa tion online Indication:BMI 28.0-28.9,adult Start:18-Jul-2020 Instruction Type:Patient Education How to access health informa tion online - Detail Indication:BMI 28.0-28.9,adult Start:18-Jul-2020 Instruction Type:Patient Education Patient Instructions Indication:BMI 28.0-28.9,adult Start:18-Jul-2020 Instruction Type:Provider Instructions for Treatment How to access health informa tion online Indication:Nonsmoker Start:11-Jul-2020 Instruction Type:Patient Education How to access health informa tion online - Detail Indication:Nonsmoker Start:11-Jul-2020 Instruction Type:Patient Education Patient Instructions Indication:Nonsmoker Start:11-Jul-2020 Instruction Type:Provider Instructions for Treatment How to access health informa tion online Indication:BMI 27.0-27.9,adult Start:12-Jun-2020 Instruction Type:Patient Education How to access health informa tion online - Detail Indication:BMI 27.0-27.9,adult Start:12-Jun-2020 Instruction Type:Patient Education Patient Instructions Indication:BMI 27.0-27.9,adult Start:12-Jun-2020 Instruction Type:Provider Instructions for Treatment How to access health informa tion online Indication:BMI 27.0-27.9,adult Start:29-Apr-2020 Instruction Type:Patient Education How to access health informa tion online - Detail Indication:BMI 27.0-27.9,adult Start:29-Apr-2020 Instruction Type:Patient Education Patient Instructions Indication:BMI 27.0-27.9,adult Start:29-Apr-2020 Instruction Type:Provider Instructions for Treatment How to access health informa tion online Indication:Nonsmoker Start:21-Dec-2019 Instruction Type:Patient Education How to access health informa tion online - Detail Indication:Nonsmoker Start:21-Dec-2019 Instruction Type:Patient Education Patient Instructions Indication:Nonsmoker Start:21-Dec-2019 Instruction Type:Provider Instructions for Treatment How to access health informa tion online Indication:Nonsmoker Start:07-Dec-2019 Instruction Type:Patient Education How to access health informa tion online - Detail Indication:Nonsmoker Start:07-Dec-2019 Instruction Type:Patient Education Patient Instructions Indication:Nonsmoker Start:07-Dec-2019 Instruction Type:Provider Instructions for Treatment How to access health informa tion online Indication:BMI 27.0-27.9,adult Start:16-Nov-2019 Instruction Type:Patient Education How to access health informa tion online - Detail Indication:BMI 27.0-27.9,adult Start:16-Nov-2019 Instruction Type:Patient Education Patient Instructions Indication:BMI 27.0-27.9,adult Start:16-Nov-2019 Instruction Type:Provider Instructions for Treatment How to access health informa tion online Indication:BMI 28.0-28.9,adult Start:07-Sep-2019 Instruction Type:Patient Education How to access health informa tion online - Detail Indication:BMI 28.0-28.9,adult Start:07-Sep-2019 Instruction Type:Patient Education Patient Instructions Indication:Post-nasal drainage Start:07-Sep-2019 Instruction Type:Provider Instructions for Treatment How to access health informa tion online Indication:Hypertension, benign Start:17-May-2019 Instruction Type:Patient Education How to access health informa tion online - Detail Indication:Hypertension, benign Start:17-May-2019 Instruction Type:Patient Education Patient Instructions Indication:Hypertension, benign Start:17-May-2019 Instruction Type:Provider Instructions for Treatment How to access health informa tion online Indication:Nonsmoker Start:14-Nov-2018 Instruction Type:Patient Education How to access health informa tion online - Detail Indication:Nonsmoker Start:14-Nov-2018 Instruction Type:Patient Education Patient Instructions Indication:Nonsmoker Start:14-Nov-2018 Instruction Type:Provider Instructions for Treatment How to access health informa tion online Indication:Nonsmoker Start:14-Sep-2018 Instruction Type:Patient Education How to access health informa tion online - Detail Indication:Nonsmoker Start:14-Sep-2018 Instruction Type:Patient Education Patient Instructions Indication:Nonsmoker Start:14-Sep-2018 Instruction Type:Provider Instructions for Treatment How to access health informa tion online Indication:Nonsmoker Start:04-Jul-2018 Instruction Type:Patient Education Patient Instructions Indication:Nonsmoker Start:04-Jul-2018 Instruction Type:Provider Instructions for Treatment How to access health informa tion online Indication:BMI 27.0-27.9,adult Start:14-Jun-2018 Instruction Type:Patient Education How to access health informa tion online - Detail Indication:BMI 27.0-27.9,adult Start:14-Jun-2018 Instruction Type:Patient Education Patient Instructions Indication:BMI 27.0-27.9,adult Start:14-Jun-2018 Instruction Type:Provider Instructions for Treatment How to access health informa tion online Indication:Need for prophylactic vaccination and inoculation against influenza (Renamed from Need for immunization against influenza) Start:19-May-2018 Instruction Type:Patient Education How to access health informa tion online - Detail Indication:Need for prophylactic vaccination and inoculation against influenza (Renamed from Need for immunization against influenza) Start:19-May-2018 Instruction Type:Patient Education Patient Instructions Indication:Need for prophylactic vaccination and inoculation against influenza (Renamed from Need for immunization against influenza) Start:19-May-2018 Instruction Type:Provider Instructions for Treatment How to access health informa tion online Indication:Nonsmoker Start:16-Nov-2017 Instruction Type:Patient Education How to access health informa tion online - Detail Indication:Nonsmoker Start:16-Nov-2017 Instruction Type:Patient Education Patient Instructions Indication:Nonsmoker Start:16-Nov-2017 Instruction Type:Provider Instructions for Treatment How to access health informa tion online Indication:Nonsmoker Start:10-Nov-2017 Instruction Type:Patient Education How to access health informa tion online - Detail Indication:Nonsmoker Start:10-Nov-2017 Instruction Type:Patient Education Patient Instructions Indication:Nonsmoker Start:10-Nov-2017 Instruction Type:Provider Instructions for Treatment How to access health informa tion online Indication:Nonsmoker Start:02-Nov-2016 Instruction Type:Patient Education How to access health informa tion online - Detail Indication:Nonsmoker Start:02-Nov-2016 Instruction Type:Patient Education Patient Instructions Indication:Nonsmoker Start:02-Nov-2016 Instruction Type:Provider Instructions for Treatment How to access health informa tion online - Detail Indication:Bronchitis Start:08-Sep-2016 Instruction Type:Patient Education Patient Instructions Indication:Bronchitis Start:08-Sep-2016 Instruction Type:Provider Instructions for Treatment How to access health informa tion online Indication:Encounter for screening mammogram for breast cancer (Renamed from Encounter for screening mammogram for malignant neoplasm of breast) Start:19-May-2016 Instruction Type:Patient Education How to access health informa tion online - Detail Indication:Encounter for screening mammogram for breast cancer (Renamed from Encounter for screening mammogram for malignant neoplasm of breast) Start:19-May-2016 Instruction Type:Patient Education Patient Instructions Indication:Encounter for screening mammogram for breast cancer (Renamed from Encounter for screening mammogram for malignant neoplasm of breast) Start:19-May-2016 Instruction Type:Provider Instructions for Treatment Patient Instructions Indication:Acute bronchitis due to other specified organisms Start:07-May-2016 Instruction Type:Provider Instructions for Treatment How to access health informa tion online Indication:Cough Start:08-Apr-2016 Instruction Type:Patient Education How to access health informa tion online - Detail Indication:Cough Start:08-Apr-2016 Instruction Type:Patient Education Patient Instructions Indication:Cough Start:08-Apr-2016 Instruction Type:Provider Instructions for Treatment How to access health informa tion online Indication:Cough Start:31-Mar-2016 Instruction Type:Patient Education How to access health informa tion online - Detail Indication:Cough Start:31-Mar-2016 Instruction Type:Patient Education Patient Instructions Indication:Cough Start:31-Mar-2016 Instruction Type:Provider Instructions for Treatment How to access health informa tion online - Detail Indication:Cough Start:09-Dec-2015 Instruction Type:Patient Education How to access health informa tion online - Detail Indication:Cough Start:09-Dec-2015 Instruction Type:Patient Education How to access health informa tion online - Detail Indication:Cough Start:09-Dec-2015 Instruction Type:Patient Education Patient Instructions Indication:Cough Start:09-Dec-2015 Instruction Type:Provider Instructions for Treatment How to access health informa tion online Indication:Rash/skin eruption Start:23-Apr-2015 Instruction Type:Patient Education How to access health informa tion online - Detail Indication:Rash/skin eruption Start:23-Apr-2015 Instruction Type:Patient Education Patient Instructions Indication:Rash/skin eruption Start:23-Apr-2015 Instruction Type:Provider Instructions for Treatment Patient Instructions Indication:Rash/skin eruption Start:18-Mar-2015 Instruction Type:Provider Instructions for Treatment Patient Instructions Indication:Acute bronchitis Start:29-Oct-2014 Instruction Type:Provider Instructions for Treatment How to access health informa tion online Indication:GERD (gastroesophageal reflux disease) Start:10-Jul-2014 Instruction Type:Patient Education How to access health informa tion online - Detail Indication:GERD (gastroesophageal reflux disease) Start:10-Jul-2014 Instruction Type:Patient Education Patient Instructions Indication:GERD (gastroesophageal reflux disease) Start:10-Jul-2014 Instruction Type:Provider Instructions for Treatment Patient Instructions Indication:GERD (gastroesophageal reflux disease) Start:12-May-2013 Instruction Type:Provider Instructions for Treatment [facility] Work Phone: Instructions* Name Dates Details Patient Instructions Indication:BMI 28.0-28.9,adult Start:15-Jul-2022 Instruction Type:Provider Instructions for Treatment How to Access Health Informa tion Online using Patient Portal and [employer]rd [employer] Apps Indication:BMI 28.0-28.9,adult Start:15-Jul-2022 Instruction Type:Patient Education Patient Instructions Indication:Nonsmoker Start:06-Jul-2022 Instruction Type:Provider Instructions for Treatment How to Access Health Informa tion Online using Patient Portal and [employer]rd [employer] Apps Indication:Nonsmoker Start:06-Jul-2022 Instruction Type:Patient Education Patient Instructions Indication:BMI 26.0-26.9,adult Start:05-May-2022 Instruction Type:Provider Instructions for Treatment How to Access Health Informa tion Online using Patient Portal and [employer]rd [employer] Apps Indication:BMI 26.0-26.9,adult Start:05-May-2022 Instruction Type:Patient Education Patient Instructions Indication:Black tarry stools Start:13-Mar-2022 Instruction Type:Provider Instructions for Treatment Patient Instructions Indication:Nonsmoker Start:01-Jan-2022 Instruction Type:Provider Instructions for Treatment How to Access Health Informa tion Online using Patient Portal and [employer]rd [employer] Apps Indication:Nonsmoker Start:01-Jan-2022 Instruction Type:Patient Education Patient Instructions Indication:BMI 28.0-28.9,adult Start:18-Jun-2021 Instruction Type:Provider Instructions for Treatment How to Access Health Informa tion Online using Patient Portal and [employer]rd [employer] Apps Indication:BMI 28.0-28.9,adult Start:18-Jun-2021 Instruction Type:Patient Education How to Access Health Informa tion Online using Patient Portal and [employer]rd [employer] Apps Indication:Nonsmoker Start:23-Dec-2020 Instruction Type:Patient Education Patient Instructions Indication:Nonsmoker Start:23-Dec-2020 Instruction Type:Provider Instructions for Treatment How to Access Health Informa tion Online using Patient Portal and [employer]rd [employer] Apps Indication:Nonsmoker Start:11-Dec-2020 Instruction Type:Patient Education Patient Instructions Indication:Nonsmoker Start:11-Dec-2020 Instruction Type:Provider Instructions for Treatment How to access health informa tion online Indication:BMI 28.0-28.9,adult Start:18-Jul-2020 Instruction Type:Patient Education How to access health informa tion online - Detail Indication:BMI 28.0-28.9,adult Start:18-Jul-2020 Instruction Type:Patient Education Patient Instructions Indication:BMI 28.0-28.9,adult Start:18-Jul-2020 Instruction Type:Provider Instructions for Treatment How to access health informa tion online Indication:Nonsmoker Start:11-Jul-2020 Instruction Type:Patient Education How to access health informa tion online - Detail Indication:Nonsmoker Start:11-Jul-2020 Instruction Type:Patient Education Patient Instructions Indication:Nonsmoker Start:11-Jul-2020 Instruction Type:Provider Instructions for Treatment How to access health informa tion online Indication:BMI 27.0-27.9,adult Start:12-Jun-2020 Instruction Type:Patient Education How to access health informa tion online - Detail Indication:BMI 27.0-27.9,adult Start:12-Jun-2020 Instruction Type:Patient Education Patient Instructions Indication:BMI 27.0-27.9,adult Start:12-Jun-2020 Instruction Type:Provider Instructions for Treatment How to access health informa tion online Indication:BMI 27.0-27.9,adult Start:29-Apr-2020 Instruction Type:Patient Education How to access health informa tion online - Detail Indication:BMI 27.0-27.9,adult Start:29-Apr-2020 Instruction Type:Patient Education Patient Instructions Indication:BMI 27.0-27.9,adult Start:29-Apr-2020 Instruction Type:Provider Instructions for Treatment How to access health informa tion online Indication:Nonsmoker Start:21-Dec-2019 Instruction Type:Patient Education How to access health informa tion online - Detail Indication:Nonsmoker Start:21-Dec-2019 Instruction Type:Patient Education Patient Instructions Indication:Nonsmoker Start:21-Dec-2019 Instruction Type:Provider Instructions for Treatment How to access health informa tion online Indication:Nonsmoker Start:07-Dec-2019 Instruction Type:Patient Education How to access health informa tion online - Detail Indication:Nonsmoker Start:07-Dec-2019 Instruction Type:Patient Education Patient Instructions Indication:Nonsmoker Start:07-Dec-2019 Instruction Type:Provider Instructions for Treatment How to access health informa tion online Indication:BMI 27.0-27.9,adult Start:16-Nov-2019 Instruction Type:Patient Education How to access health informa tion online - Detail Indication:BMI 27.0-27.9,adult Start:16-Nov-2019 Instruction Type:Patient Education Patient Instructions Indication:BMI 27.0-27.9,adult Start:16-Nov-2019 Instruction Type:Provider Instructions for Treatment How to access health informa tion online Indication:BMI 28.0-28.9,adult Start:07-Sep-2019 Instruction Type:Patient Education How to access health informa tion online - Detail Indication:BMI 28.0-28.9,adult Start:07-Sep-2019 Instruction Type:Patient Education Patient Instructions Indication:Post-nasal drainage Start:07-Sep-2019 Instruction Type:Provider Instructions for Treatment How to access health informa tion online Indication:Hypertension, benign Start:17-May-2019 Instruction Type:Patient Education How to access health informa tion online - Detail Indication:Hypertension, benign Start:17-May-2019 Instruction Type:Patient Education Patient Instructions Indication:Hypertension, benign Start:17-May-2019 Instruction Type:Provider Instructions for Treatment How to access health informa tion online Indication:Nonsmoker Start:14-Nov-2018 Instruction Type:Patient Education How to access health informa tion online - Detail Indication:Nonsmoker Start:14-Nov-2018 Instruction Type:Patient Education Patient Instructions Indication:Nonsmoker Start:14-Nov-2018 Instruction Type:Provider Instructions for Treatment How to access health informa tion online Indication:Nonsmoker Start:14-Sep-2018 Instruction Type:Patient Education How to access health informa tion online - Detail Indication:Nonsmoker Start:14-Sep-2018 Instruction Type:Patient Education Patient Instructions Indication:Nonsmoker Start:14-Sep-2018 Instruction Type:Provider Instructions for Treatment How to access health informa tion online Indication:Nonsmoker Start:04-Jul-2018 Instruction Type:Patient Education Patient Instructions Indication:Nonsmoker Start:04-Jul-2018 Instruction Type:Provider Instructions for Treatment How to access health informa tion online Indication:BMI 27.0-27.9,adult Start:14-Jun-2018 Instruction Type:Patient Education How to access health informa tion online - Detail Indication:BMI 27.0-27.9,adult Start:14-Jun-2018 Instruction Type:Patient Education Patient Instructions Indication:BMI 27.0-27.9,adult Start:14-Jun-2018 Instruction Type:Provider Instructions for Treatment How to access health informa tion online Indication:Need for prophylactic vaccination and inoculation against influenza (Renamed from Need for immunization against influenza) Start:19-May-2018 Instruction Type:Patient Education How to access health informa tion online - Detail Indication:Need for prophylactic vaccination and inoculation against influenza (Renamed from Need for immunization against influenza) Start:19-May-2018 Instruction Type:Patient Education Patient Instructions Indication:Need for prophylactic vaccination and inoculation against influenza (Renamed from Need for immunization against influenza) Start:19-May-2018 Instruction Type:Provider Instructions for Treatment How to access health informa tion online Indication:Nonsmoker Start:16-Nov-2017 Instruction Type:Patient Education How to access health informa tion online - Detail Indication:Nonsmoker Start:16-Nov-2017 Instruction Type:Patient Education Patient Instructions Indication:Nonsmoker Start:16-Nov-2017 Instruction Type:Provider Instructions for Treatment How to access health informa tion online Indication:Nonsmoker Start:10-Nov-2017 Instruction Type:Patient Education How to access health informa tion online - Detail Indication:Nonsmoker Start:10-Nov-2017 Instruction Type:Patient Education Patient Instructions Indication:Nonsmoker Start:10-Nov-2017 Instruction Type:Provider Instructions for Treatment How to access health informa tion online Indication:Nonsmoker Start:02-Nov-2016 Instruction Type:Patient Education How to access health informa tion online - Detail Indication:Nonsmoker Start:02-Nov-2016 Instruction Type:Patient Education Patient Instructions Indication:Nonsmoker Start:02-Nov-2016 Instruction Type:Provider Instructions for Treatment How to access health informa tion online - Detail Indication:Bronchitis Start:08-Sep-2016 Instruction Type:Patient Education Patient Instructions Indication:Bronchitis Start:08-Sep-2016 Instruction Type:Provider Instructions for Treatment How to access health informa tion online Indication:Encounter for screening mammogram for breast cancer (Renamed from Encounter for screening mammogram for malignant neoplasm of breast) Start:19-May-2016 Instruction Type:Patient Education How to access health informa tion online - Detail Indication:Encounter for screening mammogram for breast cancer (Renamed from Encounter for screening mammogram for malignant neoplasm of breast) Start:19-May-2016 Instruction Type:Patient Education Patient Instructions Indication:Encounter for screening mammogram for breast cancer (Renamed from Encounter for screening mammogram for malignant neoplasm of breast) Start:19-May-2016 Instruction Type:Provider Instructions for Treatment Patient Instructions Indication:Acute bronchitis due to other specified organisms Start:07-May-2016 Instruction Type:Provider Instructions for Treatment How to access health informa tion online Indication:Cough Start:08-Apr-2016 Instruction Type:Patient Education How to access health informa tion online - Detail Indication:Cough Start:08-Apr-2016 Instruction Type:Patient Education Patient Instructions Indication:Cough Start:08-Apr-2016 Instruction Type:Provider Instructions for Treatment How to access health informa tion online Indication:Cough Start:31-Mar-2016 Instruction Type:Patient Education How to access health informa tion online - Detail Indication:Cough Start:31-Mar-2016 Instruction Type:Patient Education Patient Instructions Indication:Cough Start:31-Mar-2016 Instruction Type:Provider Instructions for Treatment How to access health informa tion online - Detail Indication:Cough Start:09-Dec-2015 Instruction Type:Patient Education How to access health informa tion online - Detail Indication:Cough Start:09-Dec-2015 Instruction Type:Patient Education How to access health informa tion online - Detail Indication:Cough Start:09-Dec-2015 Instruction Type:Patient Education Patient Instructions Indication:Cough Start:09-Dec-2015 Instruction Type:Provider Instructions for Treatment How to access health informa tion online Indication:Rash/skin eruption Start:23-Apr-2015 Instruction Type:Patient Education How to access health informa tion online - Detail Indication:Rash/skin eruption Start:23-Apr-2015 Instruction Type:Patient Education Patient Instructions Indication:Rash/skin eruption Start:23-Apr-2015 Instruction Type:Provider Instructions for Treatment Patient Instructions Indication:Rash/skin eruption Start:18-Mar-2015 Instruction Type:Provider Instructions for Treatment Patient Instructions Indication:Acute bronchitis Start:29-Oct-2014 Instruction Type:Provider Instructions for Treatment How to access health informa tion online Indication:GERD (gastroesophageal reflux disease) Start:10-Jul-2014 Instruction Type:Patient Education How to access health informa tion online - Detail Indication:GERD (gastroesophageal reflux disease) Start:10-Jul-2014 Instruction Type:Patient Education Patient Instructions Indication:GERD (gastroesophageal reflux disease) Start:10-Jul-2014 Instruction Type:Provider Instructions for Treatment Patient Instructions Indication:GERD (gastroesophageal reflux disease) Start:12-May-2013 Instruction Type:Provider Instructions for Treatment [facility]; [facility] Work Phone: Instructions* Name Dates Details Patient Instructions Indication:BMI 28.0-28.9,adult Start:15-Jul-2022 Instruction Type:Provider Instructions for Treatment How to Access Health Informa tion Online using Patient Portal and [employer]rd [employer] Apps Indication:BMI 28.0-28.9,adult Start:15-Jul-2022 Instruction Type:Patient Education Patient Instructions Indication:Nonsmoker Start:06-Jul-2022 Instruction Type:Provider Instructions for Treatment How to Access Health Informa tion Online using Patient Portal and [employer]rd [employer] Apps Indication:Nonsmoker Start:06-Jul-2022 Instruction Type:Patient Education Patient Instructions Indication:BMI 26.0-26.9,adult Start:05-May-2022 Instruction Type:Provider Instructions for Treatment How to Access Health Informa tion Online using Patient Portal and [employer]rd [employer] Apps Indication:BMI 26.0-26.9,adult Start:05-May-2022 Instruction Type:Patient Education Patient Instructions Indication:Black tarry stools Start:13-Mar-2022 Instruction Type:Provider Instructions for Treatment Patient Instructions Indication:Nonsmoker Start:01-Jan-2022 Instruction Type:Provider Instructions for Treatment How to Access Health Informa tion Online using Patient Portal and [employer]rd [employer] Apps Indication:Nonsmoker Start:01-Jan-2022 Instruction Type:Patient Education Patient Instructions Indication:BMI 28.0-28.9,adult Start:18-Jun-2021 Instruction Type:Provider Instructions for Treatment How to Access Health Informa tion Online using Patient Portal and [employer]rd [employer] Apps Indication:BMI 28.0-28.9,adult Start:18-Jun-2021 Instruction Type:Patient Education How to Access Health Informa tion Online using Patient Portal and [employer]rd [employer] Apps Indication:Nonsmoker Start:23-Dec-2020 Instruction Type:Patient Education Patient Instructions Indication:Nonsmoker Start:23-Dec-2020 Instruction Type:Provider Instructions for Treatment How to Access Health Informa tion Online using Patient Portal and [employer]rd [employer] Apps Indication:Nonsmoker Start:11-Dec-2020 Instruction Type:Patient Education Patient Instructions Indication:Nonsmoker Start:11-Dec-2020 Instruction Type:Provider Instructions for Treatment How to access health informa tion online Indication:BMI 28.0-28.9,adult Start:18-Jul-2020 Instruction Type:Patient Education How to access health informa tion online - Detail Indication:BMI 28.0-28.9,adult Start:18-Jul-2020 Instruction Type:Patient Education Patient Instructions Indication:BMI 28.0-28.9,adult Start:18-Jul-2020 Instruction Type:Provider Instructions for Treatment How to access health informa tion online Indication:Nonsmoker Start:11-Jul-2020 Instruction Type:Patient Education How to access health informa tion online - Detail Indication:Nonsmoker Start:11-Jul-2020 Instruction Type:Patient Education Patient Instructions Indication:Nonsmoker Start:11-Jul-2020 Instruction Type:Provider Instructions for Treatment How to access health informa tion online Indication:BMI 27.0-27.9,adult Start:12-Jun-2020 Instruction Type:Patient Education How to access health informa tion online - Detail Indication:BMI 27.0-27.9,adult Start:12-Jun-2020 Instruction Type:Patient Education Patient Instructions Indication:BMI 27.0-27.9,adult Start:12-Jun-2020 Instruction Type:Provider Instructions for Treatment How to access health informa tion online Indication:BMI 27.0-27.9,adult Start:29-Apr-2020 Instruction Type:Patient Education How to access health informa tion online - Detail Indication:BMI 27.0-27.9,adult Start:29-Apr-2020 Instruction Type:Patient Education Patient Instructions Indication:BMI 27.0-27.9,adult Start:29-Apr-2020 Instruction Type:Provider Instructions for Treatment How to access health informa tion online Indication:Nonsmoker Start:21-Dec-2019 Instruction Type:Patient Education How to access health informa tion online - Detail Indication:Nonsmoker Start:21-Dec-2019 Instruction Type:Patient Education Patient Instructions Indication:Nonsmoker Start:21-Dec-2019 Instruction Type:Provider Instructions for Treatment How to access health informa tion online Indication:Nonsmoker Start:07-Dec-2019 Instruction Type:Patient Education How to access health informa tion online - Detail Indication:Nonsmoker Start:07-Dec-2019 Instruction Type:Patient Education Patient Instructions Indication:Nonsmoker Start:07-Dec-2019 Instruction Type:Provider Instructions for Treatment How to access health informa tion online Indication:BMI 27.0-27.9,adult Start:16-Nov-2019 Instruction Type:Patient Education How to access health informa tion online - Detail Indication:BMI 27.0-27.9,adult Start:16-Nov-2019 Instruction Type:Patient Education Patient Instructions Indication:BMI 27.0-27.9,adult Start:16-Nov-2019 Instruction Type:Provider Instructions for Treatment How to access health informa tion online Indication:BMI 28.0-28.9,adult Start:07-Sep-2019 Instruction Type:Patient Education How to access health informa tion online - Detail Indication:BMI 28.0-28.9,adult Start:07-Sep-2019 Instruction Type:Patient Education Patient Instructions Indication:Post-nasal drainage Start:07-Sep-2019 Instruction Type:Provider Instructions for Treatment How to access health informa tion online Indication:Hypertension, benign Start:17-May-2019 Instruction Type:Patient Education How to access health informa tion online - Detail Indication:Hypertension, benign Start:17-May-2019 Instruction Type:Patient Education Patient Instructions Indication:Hypertension, benign Start:17-May-2019 Instruction Type:Provider Instructions for Treatment How to access health informa tion online Indication:Nonsmoker Start:14-Nov-2018 Instruction Type:Patient Education How to access health informa tion online - Detail Indication:Nonsmoker Start:14-Nov-2018 Instruction Type:Patient Education Patient Instructions Indication:Nonsmoker Start:14-Nov-2018 Instruction Type:Provider Instructions for Treatment How to access health informa tion online Indication:Nonsmoker Start:14-Sep-2018 Instruction Type:Patient Education How to access health informa tion online - Detail Indication:Nonsmoker Start:14-Sep-2018 Instruction Type:Patient Education Patient Instructions Indication:Nonsmoker Start:14-Sep-2018 Instruction Type:Provider Instructions for Treatment How to access health informa tion online Indication:Nonsmoker Start:04-Jul-2018 Instruction Type:Patient Education Patient Instructions Indication:Nonsmoker Start:04-Jul-2018 Instruction Type:Provider Instructions for Treatment How to access health informa tion online Indication:BMI 27.0-27.9,adult Start:14-Jun-2018 Instruction Type:Patient Education How to access health informa tion online - Detail Indication:BMI 27.0-27.9,adult Start:14-Jun-2018 Instruction Type:Patient Education Patient Instructions Indication:BMI 27.0-27.9,adult Start:14-Jun-2018 Instruction Type:Provider Instructions for Treatment How to access health informa tion online Indication:Need for prophylactic vaccination and inoculation against influenza (Renamed from Need for immunization against influenza) Start:19-May-2018 Instruction Type:Patient Education How to access health informa tion online - Detail Indication:Need for prophylactic vaccination and inoculation against influenza (Renamed from Need for immunization against influenza) Start:19-May-2018 Instruction Type:Patient Education Patient Instructions Indication:Need for prophylactic vaccination and inoculation against influenza (Renamed from Need for immunization against influenza) Start:19-May-2018 Instruction Type:Provider Instructions for Treatment How to access health informa tion online Indication:Nonsmoker Start:16-Nov-2017 Instruction Type:Patient Education How to access health informa tion online - Detail Indication:Nonsmoker Start:16-Nov-2017 Instruction Type:Patient Education Patient Instructions Indication:Nonsmoker Start:16-Nov-2017 Instruction Type:Provider Instructions for Treatment How to access health informa tion online Indication:Nonsmoker Start:10-Nov-2017 Instruction Type:Patient Education How to access health informa tion online - Detail Indication:Nonsmoker Start:10-Nov-2017 Instruction Type:Patient Education Patient Instructions Indication:Nonsmoker Start:10-Nov-2017 Instruction Type:Provider Instructions for Treatment How to access health informa tion online Indication:Nonsmoker Start:02-Nov-2016 Instruction Type:Patient Education How to access health informa tion online - Detail Indication:Nonsmoker Start:02-Nov-2016 Instruction Type:Patient Education Patient Instructions Indication:Nonsmoker Start:02-Nov-2016 Instruction Type:Provider Instructions for Treatment How to access health informa tion online - Detail Indication:Bronchitis Start:08-Sep-2016 Instruction Type:Patient Education Patient Instructions Indication:Bronchitis Start:08-Sep-2016 Instruction Type:Provider Instructions for Treatment How to access health informa tion online Indication:Encounter for screening mammogram for breast cancer (Renamed from Encounter for screening mammogram for malignant neoplasm of breast) Start:19-May-2016 Instruction Type:Patient Education How to access health informa tion online - Detail Indication:Encounter for screening mammogram for breast cancer (Renamed from Encounter for screening mammogram for malignant neoplasm of breast) Start:19-May-2016 Instruction Type:Patient Education Patient Instructions Indication:Encounter for screening mammogram for breast cancer (Renamed from Encounter for screening mammogram for malignant neoplasm of breast) Start:19-May-2016 Instruction Type:Provider Instructions for Treatment Patient Instructions Indication:Acute bronchitis due to other specified organisms Start:07-May-2016 Instruction Type:Provider Instructions for Treatment How to access health informa tion online Indication:Cough Start:08-Apr-2016 Instruction Type:Patient Education How to access health informa tion online - Detail Indication:Cough Start:08-Apr-2016 Instruction Type:Patient Education Patient Instructions Indication:Cough Start:08-Apr-2016 Instruction Type:Provider Instructions for Treatment How to access health informa tion online Indication:Cough Start:31-Mar-2016 Instruction Type:Patient Education How to access health informa tion online - Detail Indication:Cough Start:31-Mar-2016 Instruction Type:Patient Education Patient Instructions Indication:Cough Start:31-Mar-2016 Instruction Type:Provider Instructions for Treatment How to access health informa tion online - Detail Indication:Cough Start:09-Dec-2015 Instruction Type:Patient Education How to access health informa tion online - Detail Indication:Cough Start:09-Dec-2015 Instruction Type:Patient Education How to access health informa tion online - Detail Indication:Cough Start:09-Dec-2015 Instruction Type:Patient Education Patient Instructions Indication:Cough Start:09-Dec-2015 Instruction Type:Provider Instructions for Treatment How to access health informa tion online Indication:Rash/skin eruption Start:23-Apr-2015 Instruction Type:Patient Education How to access health informa tion online - Detail Indication:Rash/skin eruption Start:23-Apr-2015 Instruction Type:Patient Education Patient Instructions Indication:Rash/skin eruption Start:23-Apr-2015 Instruction Type:Provider Instructions for Treatment Patient Instructions Indication:Rash/skin eruption Start:18-Mar-2015 Instruction Type:Provider Instructions for Treatment Patient Instructions Indication:Acute bronchitis Start:29-Oct-2014 Instruction Type:Provider Instructions for Treatment How to access health informa tion online Indication:GERD (gastroesophageal reflux disease) Start:10-Jul-2014 Instruction Type:Patient Education How to access health informa tion online - Detail Indication:GERD (gastroesophageal reflux disease) Start:10-Jul-2014 Instruction Type:Patient Education Patient Instructions Indication:GERD (gastroesophageal reflux disease) Start:10-Jul-2014 Instruction Type:Provider Instructions for Treatment Patient Instructions Indication:GERD (gastroesophageal reflux disease) Start:12-May-2013 Instruction Type:Provider Instructions for Treatment [facility]; [facility] Work Phone: Instructions* Name Dates Details Patient Instructions Indication:BMI 28.0-28.9,adult Start:07-Oct-2022 Instruction Type:Provider Instructions for Treatment How to Access Health Informa tion Online using Patient Portal and [employer]rd [employer] Apps Indication:BMI 28.0-28.9,adult Start:07-Oct-2022 Instruction Type:Patient Education Patient Instructions Indication:BMI 28.0-28.9,adult Start:15-Jul-2022 Instruction Type:Provider Instructions for Treatment How to Access Health Informa tion Online using Patient Portal and [employer]rd [employer] Apps Indication:BMI 28.0-28.9,adult Start:15-Jul-2022 Instruction Type:Patient Education Patient Instructions Indication:Nonsmoker Start:06-Jul-2022 Instruction Type:Provider Instructions for Treatment How to Access Health Informa tion Online using Patient Portal and [employer]rd [employer] Apps Indication:Nonsmoker Start:06-Jul-2022 Instruction Type:Patient Education Patient Instructions Indication:BMI 26.0-26.9,adult Start:05-May-2022 Instruction Type:Provider Instructions for Treatment How to Access Health Informa tion Online using Patient Portal and [employer]rd [employer] Apps Indication:BMI 26.0-26.9,adult Start:05-May-2022 Instruction Type:Patient Education Patient Instructions Indication:Black tarry stools Start:13-Mar-2022 Instruction Type:Provider Instructions for Treatment Patient Instructions Indication:Nonsmoker Start:01-Jan-2022 Instruction Type:Provider Instructions for Treatment How to Access Health Informa tion Online using Patient Portal and [employer]rd [employer] Apps Indication:Nonsmoker Start:01-Jan-2022 Instruction Type:Patient Education Patient Instructions Indication:BMI 28.0-28.9,adult Start:18-Jun-2021 Instruction Type:Provider Instructions for Treatment How to Access Health Informa tion Online using Patient Portal and [employer]rd [employer] Apps Indication:BMI 28.0-28.9,adult Start:18-Jun-2021 Instruction Type:Patient Education How to Access Health Informa tion Online using Patient Portal and [employer]rd [employer] Apps Indication:Nonsmoker Start:23-Dec-2020 Instruction Type:Patient Education Patient Instructions Indication:Nonsmoker Start:23-Dec-2020 Instruction Type:Provider Instructions for Treatment How to Access Health Informa tion Online using Patient Portal and [employer]rd [employer] Apps Indication:Nonsmoker Start:11-Dec-2020 Instruction Type:Patient Education Patient Instructions Indication:Nonsmoker Start:11-Dec-2020 Instruction Type:Provider Instructions for Treatment How to access health informa tion online Indication:BMI 28.0-28.9,adult Start:18-Jul-2020 Instruction Type:Patient Education How to access health informa tion online - Detail Indication:BMI 28.0-28.9,adult Start:18-Jul-2020 Instruction Type:Patient Education Patient Instructions Indication:BMI 28.0-28.9,adult Start:18-Jul-2020 Instruction Type:Provider Instructions for Treatment How to access health informa tion online Indication:Nonsmoker Start:11-Jul-2020 Instruction Type:Patient Education How to access health informa tion online - Detail Indication:Nonsmoker Start:11-Jul-2020 Instruction Type:Patient Education Patient Instructions Indication:Nonsmoker Start:11-Jul-2020 Instruction Type:Provider Instructions for Treatment How to access health informa tion online Indication:BMI 27.0-27.9,adult Start:12-Jun-2020 Instruction Type:Patient Education How to access health informa tion online - Detail Indication:BMI 27.0-27.9,adult Start:12-Jun-2020 Instruction Type:Patient Education Patient Instructions Indication:BMI 27.0-27.9,adult Start:12-Jun-2020 Instruction Type:Provider Instructions for Treatment How to access health informa tion online Indication:BMI 27.0-27.9,adult Start:29-Apr-2020 Instruction Type:Patient Education How to access health informa tion online - Detail Indication:BMI 27.0-27.9,adult Start:29-Apr-2020 Instruction Type:Patient Education Patient Instructions Indication:BMI 27.0-27.9,adult Start:29-Apr-2020 Instruction Type:Provider Instructions for Treatment How to access health informa tion online Indication:Nonsmoker Start:21-Dec-2019 Instruction Type:Patient Education How to access health informa tion online - Detail Indication:Nonsmoker Start:21-Dec-2019 Instruction Type:Patient Education Patient Instructions Indication:Nonsmoker Start:21-Dec-2019 Instruction Type:Provider Instructions for Treatment How to access health informa tion online Indication:Nonsmoker Start:07-Dec-2019 Instruction Type:Patient Education How to access health informa tion online - Detail Indication:Nonsmoker Start:07-Dec-2019 Instruction Type:Patient Education Patient Instructions Indication:Nonsmoker Start:07-Dec-2019 Instruction Type:Provider Instructions for Treatment How to access health informa tion online Indication:BMI 27.0-27.9,adult Start:16-Nov-2019 Instruction Type:Patient Education How to access health informa tion online - Detail Indication:BMI 27.0-27.9,adult Start:16-Nov-2019 Instruction Type:Patient Education Patient Instructions Indication:BMI 27.0-27.9,adult Start:16-Nov-2019 Instruction Type:Provider Instructions for Treatment How to access health informa tion online Indication:BMI 28.0-28.9,adult Start:07-Sep-2019 Instruction Type:Patient Education How to access health informa tion online - Detail Indication:BMI 28.0-28.9,adult Start:07-Sep-2019 Instruction Type:Patient Education Patient Instructions Indication:Post-nasal drainage Start:07-Sep-2019 Instruction Type:Provider Instructions for Treatment How to access health informa tion online Indication:Hypertension, benign Start:17-May-2019 Instruction Type:Patient Education How to access health informa tion online - Detail Indication:Hypertension, benign Start:17-May-2019 Instruction Type:Patient Education Patient Instructions Indication:Hypertension, benign Start:17-May-2019 Instruction Type:Provider Instructions for Treatment How to access health informa tion online Indication:Nonsmoker Start:14-Nov-2018 Instruction Type:Patient Education How to access health informa tion online - Detail Indication:Nonsmoker Start:14-Nov-2018 Instruction Type:Patient Education Patient Instructions Indication:Nonsmoker Start:14-Nov-2018 Instruction Type:Provider Instructions for Treatment How to access health informa tion online Indication:Nonsmoker Start:14-Sep-2018 Instruction Type:Patient Education How to access health informa tion online - Detail Indication:Nonsmoker Start:14-Sep-2018 Instruction Type:Patient Education Patient Instructions Indication:Nonsmoker Start:14-Sep-2018 Instruction Type:Provider Instructions for Treatment How to access health informa tion online Indication:Nonsmoker Start:04-Jul-2018 Instruction Type:Patient Education Patient Instructions Indication:Nonsmoker Start:04-Jul-2018 Instruction Type:Provider Instructions for Treatment How to access health informa tion online Indication:BMI 27.0-27.9,adult Start:14-Jun-2018 Instruction Type:Patient Education How to access health informa tion online - Detail Indication:BMI 27.0-27.9,adult Start:14-Jun-2018 Instruction Type:Patient Education Patient Instructions Indication:BMI 27.0-27.9,adult Start:14-Jun-2018 Instruction Type:Provider Instructions for Treatment How to access health informa tion online Indication:Need for prophylactic vaccination and inoculation against influenza (Renamed from Need for immunization against influenza) Start:19-May-2018 Instruction Type:Patient Education How to access health informa tion online - Detail Indication:Need for prophylactic vaccination and inoculation against influenza (Renamed from Need for immunization against influenza) Start:19-May-2018 Instruction Type:Patient Education Patient Instructions Indication:Need for prophylactic vaccination and inoculation against influenza (Renamed from Need for immunization against influenza) Start:19-May-2018 Instruction Type:Provider Instructions for Treatment How to access health informa tion online Indication:Nonsmoker Start:16-Nov-2017 Instruction Type:Patient Education How to access health informa tion online - Detail Indication:Nonsmoker Start:16-Nov-2017 Instruction Type:Patient Education Patient Instructions Indication:Nonsmoker Start:16-Nov-2017 Instruction Type:Provider Instructions for Treatment How to access health informa tion online Indication:Nonsmoker Start:10-Nov-2017 Instruction Type:Patient Education How to access health informa tion online - Detail Indication:Nonsmoker Start:10-Nov-2017 Instruction Type:Patient Education Patient Instructions Indication:Nonsmoker Start:10-Nov-2017 Instruction Type:Provider Instructions for Treatment How to access health informa tion online Indication:Nonsmoker Start:02-Nov-2016 Instruction Type:Patient Education How to access health informa tion online - Detail Indication:Nonsmoker Start:02-Nov-2016 Instruction Type:Patient Education Patient Instructions Indication:Nonsmoker Start:02-Nov-2016 Instruction Type:Provider Instructions for Treatment How to access health informa tion online - Detail Indication:Bronchitis Start:08-Sep-2016 Instruction Type:Patient Education Patient Instructions Indication:Bronchitis Start:08-Sep-2016 Instruction Type:Provider Instructions for Treatment How to access health informa tion online Indication:Encounter for screening mammogram for breast cancer (Renamed from Encounter for screening mammogram for malignant neoplasm of breast) Start:19-May-2016 Instruction Type:Patient Education How to access health informa tion online - Detail Indication:Encounter for screening mammogram for breast cancer (Renamed from Encounter for screening mammogram for malignant neoplasm of breast) Start:19-May-2016 Instruction Type:Patient Education Patient Instructions Indication:Encounter for screening mammogram for breast cancer (Renamed from Encounter for screening mammogram for malignant neoplasm of breast) Start:19-May-2016 Instruction Type:Provider Instructions for Treatment Patient Instructions Indication:Acute bronchitis due to other specified organisms Start:07-May-2016 Instruction Type:Provider Instructions for Treatment How to access health informa tion online Indication:Cough Start:08-Apr-2016 Instruction Type:Patient Education How to access health informa tion online - Detail Indication:Cough Start:08-Apr-2016 Instruction Type:Patient Education Patient Instructions Indication:Cough Start:08-Apr-2016 Instruction Type:Provider Instructions for Treatment How to access health informa tion online Indication:Cough Start:31-Mar-2016 Instruction Type:Patient Education How to access health informa tion online - Detail Indication:Cough Start:31-Mar-2016 Instruction Type:Patient Education Patient Instructions Indication:Cough Start:31-Mar-2016 Instruction Type:Provider Instructions for Treatment How to access health informa tion online - Detail Indication:Cough Start:09-Dec-2015 Instruction Type:Patient Education How to access health informa tion online - Detail Indication:Cough Start:09-Dec-2015 Instruction Type:Patient Education How to access health informa tion online - Detail Indication:Cough Start:09-Dec-2015 Instruction Type:Patient Education Patient Instructions Indication:Cough Start:09-Dec-2015 Instruction Type:Provider Instructions for Treatment How to access health informa tion online Indication:Rash/skin eruption Start:23-Apr-2015 Instruction Type:Patient Education How to access health informa tion online - Detail Indication:Rash/skin eruption Start:23-Apr-2015 Instruction Type:Patient Education Patient Instructions Indication:Rash/skin eruption Start:23-Apr-2015 Instruction Type:Provider Instructions for Treatment Patient Instructions Indication:Rash/skin eruption Start:18-Mar-2015 Instruction Type:Provider Instructions for Treatment Patient Instructions Indication:Acute bronchitis Start:29-Oct-2014 Instruction Type:Provider Instructions for Treatment How to access health informa tion online Indication:GERD (gastroesophageal reflux disease) Start:10-Jul-2014 Instruction Type:Patient Education How to access health informa tion online - Detail Indication:GERD (gastroesophageal reflux disease) Start:10-Jul-2014 Instruction Type:Patient Education Patient Instructions Indication:GERD (gastroesophageal reflux disease) Start:10-Jul-2014 Instruction Type:Provider Instructions for Treatment Patient Instructions Indication:GERD (gastroesophageal reflux disease) Start:12-May-2013 Instruction Type:Provider Instructions for Treatment [facility]; [facility] Work Phone: Instructions* Name Dates Details Patient Instructions Indication:BMI 28.0-28.9,adult Start:07-Oct-2022 Instruction Type:Provider Instructions for Treatment How to Access Health Informa tion Online using Patient Portal and [employer]rd [employer] Apps Indication:BMI 28.0-28.9,adult Start:07-Oct-2022 Instruction Type:Patient Education Patient Instructions Indication:BMI 28.0-28.9,adult Start:15-Jul-2022 Instruction Type:Provider Instructions for Treatment How to Access Health Informa tion Online using Patient Portal and [employer]rd [employer] Apps Indication:BMI 28.0-28.9,adult Start:15-Jul-2022 Instruction Type:Patient Education Patient Instructions Indication:Nonsmoker Start:06-Jul-2022 Instruction Type:Provider Instructions for Treatment How to Access Health Informa tion Online using Patient Portal and [employer]rd [employer] Apps Indication:Nonsmoker Start:06-Jul-2022 Instruction Type:Patient Education Patient Instructions Indication:BMI 26.0-26.9,adult Start:05-May-2022 Instruction Type:Provider Instructions for Treatment How to Access Health Informa tion Online using Patient Portal and [employer]rd [employer] Apps Indication:BMI 26.0-26.9,adult Start:05-May-2022 Instruction Type:Patient Education Patient Instructions Indication:Black tarry stools Start:13-Mar-2022 Instruction Type:Provider Instructions for Treatment Patient Instructions Indication:Nonsmoker Start:01-Jan-2022 Instruction Type:Provider Instructions for Treatment How to Access Health Informa tion Online using Patient Portal and [employer]rd [employer] Apps Indication:Nonsmoker Start:01-Jan-2022 Instruction Type:Patient Education Patient Instructions Indication:BMI 28.0-28.9,adult Start:18-Jun-2021 Instruction Type:Provider Instructions for Treatment How to Access Health Informa tion Online using Patient Portal and [employer]rd [employer] Apps Indication:BMI 28.0-28.9,adult Start:18-Jun-2021 Instruction Type:Patient Education How to Access Health Informa tion Online using Patient Portal and [employer]rd [employer] Apps Indication:Nonsmoker Start:23-Dec-2020 Instruction Type:Patient Education Patient Instructions Indication:Nonsmoker Start:23-Dec-2020 Instruction Type:Provider Instructions for Treatment How to Access Health Informa tion Online using Patient Portal and [employer]rd [employer] Apps Indication:Nonsmoker Start:11-Dec-2020 Instruction Type:Patient Education Patient Instructions Indication:Nonsmoker Start:11-Dec-2020 Instruction Type:Provider Instructions for Treatment How to access health informa tion online Indication:BMI 28.0-28.9,adult Start:18-Jul-2020 Instruction Type:Patient Education How to access health informa tion online - Detail Indication:BMI 28.0-28.9,adult Start:18-Jul-2020 Instruction Type:Patient Education Patient Instructions Indication:BMI 28.0-28.9,adult Start:18-Jul-2020 Instruction Type:Provider Instructions for Treatment How to access health informa tion online Indication:Nonsmoker Start:11-Jul-2020 Instruction Type:Patient Education How to access health informa tion online - Detail Indication:Nonsmoker Start:11-Jul-2020 Instruction Type:Patient Education Patient Instructions Indication:Nonsmoker Start:11-Jul-2020 Instruction Type:Provider Instructions for Treatment How to access health informa tion online Indication:BMI 27.0-27.9,adult Start:12-Jun-2020 Instruction Type:Patient Education How to access health informa tion online - Detail Indication:BMI 27.0-27.9,adult Start:12-Jun-2020 Instruction Type:Patient Education Patient Instructions Indication:BMI 27.0-27.9,adult Start:12-Jun-2020 Instruction Type:Provider Instructions for Treatment How to access health informa tion online Indication:BMI 27.0-27.9,adult Start:29-Apr-2020 Instruction Type:Patient Education How to access health informa tion online - Detail Indication:BMI 27.0-27.9,adult Start:29-Apr-2020 Instruction Type:Patient Education Patient Instructions Indication:BMI 27.0-27.9,adult Start:29-Apr-2020 Instruction Type:Provider Instructions for Treatment How to access health informa tion online Indication:Nonsmoker Start:21-Dec-2019 Instruction Type:Patient Education How to access health informa tion online - Detail Indication:Nonsmoker Start:21-Dec-2019 Instruction Type:Patient Education Patient Instructions Indication:Nonsmoker Start:21-Dec-2019 Instruction Type:Provider Instructions for Treatment How to access health informa tion online Indication:Nonsmoker Start:07-Dec-2019 Instruction Type:Patient Education How to access health informa tion online - Detail Indication:Nonsmoker Start:07-Dec-2019 Instruction Type:Patient Education Patient Instructions Indication:Nonsmoker Start:07-Dec-2019 Instruction Type:Provider Instructions for Treatment How to access health informa tion online Indication:BMI 27.0-27.9,adult Start:16-Nov-2019 Instruction Type:Patient Education How to access health informa tion online - Detail Indication:BMI 27.0-27.9,adult Start:16-Nov-2019 Instruction Type:Patient Education Patient Instructions Indication:BMI 27.0-27.9,adult Start:16-Nov-2019 Instruction Type:Provider Instructions for Treatment How to access health informa tion online Indication:BMI 28.0-28.9,adult Start:07-Sep-2019 Instruction Type:Patient Education How to access health informa tion online - Detail Indication:BMI 28.0-28.9,adult Start:07-Sep-2019 Instruction Type:Patient Education Patient Instructions Indication:Post-nasal drainage Start:07-Sep-2019 Instruction Type:Provider Instructions for Treatment How to access health informa tion online Indication:Hypertension, benign Start:17-May-2019 Instruction Type:Patient Education How to access health informa tion online - Detail Indication:Hypertension, benign Start:17-May-2019 Instruction Type:Patient Education Patient Instructions Indication:Hypertension, benign Start:17-May-2019 Instruction Type:Provider Instructions for Treatment How to access health informa tion online Indication:Nonsmoker Start:14-Nov-2018 Instruction Type:Patient Education How to access health informa tion online - Detail Indication:Nonsmoker Start:14-Nov-2018 Instruction Type:Patient Education Patient Instructions Indication:Nonsmoker Start:14-Nov-2018 Instruction Type:Provider Instructions for Treatment How to access health informa tion online Indication:Nonsmoker Start:14-Sep-2018 Instruction Type:Patient Education How to access health informa tion online - Detail Indication:Nonsmoker Start:14-Sep-2018 Instruction Type:Patient Education Patient Instructions Indication:Nonsmoker Start:14-Sep-2018 Instruction Type:Provider Instructions for Treatment How to access health informa tion online Indication:Nonsmoker Start:04-Jul-2018 Instruction Type:Patient Education Patient Instructions Indication:Nonsmoker Start:04-Jul-2018 Instruction Type:Provider Instructions for Treatment How to access health informa tion online Indication:BMI 27.0-27.9,adult Start:14-Jun-2018 Instruction Type:Patient Education How to access health informa tion online - Detail Indication:BMI 27.0-27.9,adult Start:14-Jun-2018 Instruction Type:Patient Education Patient Instructions Indication:BMI 27.0-27.9,adult Start:14-Jun-2018 Instruction Type:Provider Instructions for Treatment How to access health informa tion online Indication:Need for prophylactic vaccination and inoculation against influenza (Renamed from Need for immunization against influenza) Start:19-May-2018 Instruction Type:Patient Education How to access health informa tion online - Detail Indication:Need for prophylactic vaccination and inoculation against influenza (Renamed from Need for immunization against influenza) Start:19-May-2018 Instruction Type:Patient Education Patient Instructions Indication:Need for prophylactic vaccination and inoculation against influenza (Renamed from Need for immunization against influenza) Start:19-May-2018 Instruction Type:Provider Instructions for Treatment How to access health informa tion online Indication:Nonsmoker Start:16-Nov-2017 Instruction Type:Patient Education How to access health informa tion online - Detail Indication:Nonsmoker Start:16-Nov-2017 Instruction Type:Patient Education Patient Instructions Indication:Nonsmoker Start:16-Nov-2017 Instruction Type:Provider Instructions for Treatment How to access health informa tion online Indication:Nonsmoker Start:10-Nov-2017 Instruction Type:Patient Education How to access health informa tion online - Detail Indication:Nonsmoker Start:10-Nov-2017 Instruction Type:Patient Education Patient Instructions Indication:Nonsmoker Start:10-Nov-2017 Instruction Type:Provider Instructions for Treatment How to access health informa tion online Indication:Nonsmoker Start:02-Nov-2016 Instruction Type:Patient Education How to access health informa tion online - Detail Indication:Nonsmoker Start:02-Nov-2016 Instruction Type:Patient Education Patient Instructions Indication:Nonsmoker Start:02-Nov-2016 Instruction Type:Provider Instructions for Treatment How to access health informa tion online - Detail Indication:Bronchitis Start:08-Sep-2016 Instruction Type:Patient Education Patient Instructions Indication:Bronchitis Start:08-Sep-2016 Instruction Type:Provider Instructions for Treatment How to access health informa tion online Indication:Encounter for screening mammogram for breast cancer (Renamed from Encounter for screening mammogram for malignant neoplasm of breast) Start:19-May-2016 Instruction Type:Patient Education How to access health informa tion online - Detail Indication:Encounter for screening mammogram for breast cancer (Renamed from Encounter for screening mammogram for malignant neoplasm of breast) Start:19-May-2016 Instruction Type:Patient Education Patient Instructions Indication:Encounter for screening mammogram for breast cancer (Renamed from Encounter for screening mammogram for malignant neoplasm of breast) Start:19-May-2016 Instruction Type:Provider Instructions for Treatment Patient Instructions Indication:Acute bronchitis due to other specified organisms Start:07-May-2016 Instruction Type:Provider Instructions for Treatment How to access health informa tion online Indication:Cough Start:08-Apr-2016 Instruction Type:Patient Education How to access health informa tion online - Detail Indication:Cough Start:08-Apr-2016 Instruction Type:Patient Education Patient Instructions Indication:Cough Start:08-Apr-2016 Instruction Type:Provider Instructions for Treatment How to access health informa tion online Indication:Cough Start:31-Mar-2016 Instruction Type:Patient Education How to access health informa tion online - Detail Indication:Cough Start:31-Mar-2016 Instruction Type:Patient Education Patient Instructions Indication:Cough Start:31-Mar-2016 Instruction Type:Provider Instructions for Treatment How to access health informa tion online - Detail Indication:Cough Start:09-Dec-2015 Instruction Type:Patient Education How to access health informa tion online - Detail Indication:Cough Start:09-Dec-2015 Instruction Type:Patient Education How to access health informa tion online - Detail Indication:Cough Start:09-Dec-2015 Instruction Type:Patient Education Patient Instructions Indication:Cough Start:09-Dec-2015 Instruction Type:Provider Instructions for Treatment How to access health informa tion online Indication:Rash/skin eruption Start:23-Apr-2015 Instruction Type:Patient Education How to access health informa tion online - Detail Indication:Rash/skin eruption Start:23-Apr-2015 Instruction Type:Patient Education Patient Instructions Indication:Rash/skin eruption Start:23-Apr-2015 Instruction Type:Provider Instructions for Treatment Patient Instructions Indication:Rash/skin eruption Start:18-Mar-2015 Instruction Type:Provider Instructions for Treatment Patient Instructions Indication:Acute bronchitis Start:29-Oct-2014 Instruction Type:Provider Instructions for Treatment How to access health informa tion online Indication:GERD (gastroesophageal reflux disease) Start:10-Jul-2014 Instruction Type:Patient Education How to access health informa tion online - Detail Indication:GERD (gastroesophageal reflux disease) Start:10-Jul-2014 Instruction Type:Patient Education Patient Instructions Indication:GERD (gastroesophageal reflux disease) Start:10-Jul-2014 Instruction Type:Provider Instructions for Treatment Patient Instructions Indication:GERD (gastroesophageal reflux disease) Start:12-May-2013 Instruction Type:Provider Instructions for Treatment [facility]; [facility] Work Phone: Instructions* Name Dates Details Patient Instructions Indication:BMI 28.0-28.9,adult Start:07-Oct-2022 Instruction Type:Provider Instructions for Treatment How to Access Health Informa tion Online using Patient Portal and [employer]rd [employer] Apps Indication:BMI 28.0-28.9,adult Start:07-Oct-2022 Instruction Type:Patient Education Patient Instructions Indication:BMI 28.0-28.9,adult Start:15-Jul-2022 Instruction Type:Provider Instructions for Treatment How to Access Health Informa tion Online using Patient Portal and [employer] Apps Indication:BMI 28.0-28.9,adult Start:15-Jul-2022 Instruction Type:Patient Education Patient Instructions Indication:Nonsmoker Start:06-Jul-2022 Instruction Type:Provider Instructions for Treatment How to Access Health Informa tion Online using Patient Portal and [employer] Apps Indication:Nonsmoker Start:06-Jul-2022 Instruction Type:Patient Education Patient Instructions Indication:BMI 26.0-26.9,adult Start:05-May-2022 Instruction Type:Provider Instructions for Treatment How to Access Health Informa tion Online using Patient Portal and [employer]rd [employer] Apps Indication:BMI 26.0-26.9,adult Start:05-May-2022 Instruction Type:Patient Education Patient Instructions Indication:Black tarry stools Start:13-Mar-2022 Instruction Type:Provider Instructions for Treatment Patient Instructions Indication:Nonsmoker Start:01-Jan-2022 Instruction Type:Provider Instructions for Treatment How to Access Health Informa tion Online using Patient Portal and [employer]rd [employer] Apps Indication:Nonsmoker Start:01-Jan-2022 Instruction Type:Patient Education Patient Instructions Indication:BMI 28.0-28.9,adult Start:18-Jun-2021 Instruction Type:Provider Instructions for Treatment How to Access Health Informa tion Online using Patient Portal and [employer]rd [employer] Apps Indication:BMI 28.0-28.9,adult Start:18-Jun-2021 Instruction Type:Patient Education How to Access Health Informa tion Online using Patient Portal and [employer]rd [employer] Apps Indication:Nonsmoker Start:23-Dec-2020 Instruction Type:Patient Education Patient Instructions Indication:Nonsmoker Start:23-Dec-2020 Instruction Type:Provider Instructions for Treatment How to Access Health Informa tion Online using Patient Portal and [employer] Apps Indication:Nonsmoker Start:11-Dec-2020 Instruction Type:Patient Education Patient Instructions Indication:Nonsmoker Start:11-Dec-2020 Instruction Type:Provider Instructions for Treatment How to access health informa tion online Indication:BMI 28.0-28.9,adult Start:18-Jul-2020 Instruction Type:Patient Education How to access health informa tion online - Detail Indication:BMI 28.0-28.9,adult Start:18-Jul-2020 Instruction Type:Patient Education Patient Instructions Indication:BMI 28.0-28.9,adult Start:18-Jul-2020 Instruction Type:Provider Instructions for Treatment How to access health informa tion online Indication:Nonsmoker Start:11-Jul-2020 Instruction Type:Patient Education How to access health informa tion online - Detail Indication:Nonsmoker Start:11-Jul-2020 Instruction Type:Patient Education Patient Instructions Indication:Nonsmoker Start:11-Jul-2020 Instruction Type:Provider Instructions for Treatment How to access health informa tion online Indication:BMI 27.0-27.9,adult Start:12-Jun-2020 Instruction Type:Patient Education How to access health informa tion online - Detail Indication:BMI 27.0-27.9,adult Start:12-Jun-2020 Instruction Type:Patient Education Patient Instructions Indication:BMI 27.0-27.9,adult Start:12-Jun-2020 Instruction Type:Provider Instructions for Treatment How to access health informa tion online Indication:BMI 27.0-27.9,adult Start:29-Apr-2020 Instruction Type:Patient Education How to access health informa tion online - Detail Indication:BMI 27.0-27.9,adult Start:29-Apr-2020 Instruction Type:Patient Education Patient Instructions Indication:BMI 27.0-27.9,adult Start:29-Apr-2020 Instruction Type:Provider Instructions for Treatment How to access health informa tion online Indication:Nonsmoker Start:21-Dec-2019 Instruction Type:Patient Education How to access health informa tion online - Detail Indication:Nonsmoker Start:21-Dec-2019 Instruction Type:Patient Education Patient Instructions Indication:Nonsmoker Start:21-Dec-2019 Instruction Type:Provider Instructions for Treatment How to access health informa tion online Indication:Nonsmoker Start:07-Dec-2019 Instruction Type:Patient Education How to access health informa tion online - Detail Indication:Nonsmoker Start:07-Dec-2019 Instruction Type:Patient Education Patient Instructions Indication:Nonsmoker Start:07-Dec-2019 Instruction Type:Provider Instructions for Treatment How to access health informa tion online Indication:BMI 27.0-27.9,adult Start:16-Nov-2019 Instruction Type:Patient Education How to access health informa tion online - Detail Indication:BMI 27.0-27.9,adult Start:16-Nov-2019 Instruction Type:Patient Education Patient Instructions Indication:BMI 27.0-27.9,adult Start:16-Nov-2019 Instruction Type:Provider Instructions for Treatment How to access health informa tion online Indication:BMI 28.0-28.9,adult Start:07-Sep-2019 Instruction Type:Patient Education How to access health informa tion online - Detail Indication:BMI 28.0-28.9,adult Start:07-Sep-2019 Instruction Type:Patient Education Patient Instructions Indication:Post-nasal drainage Start:07-Sep-2019 Instruction Type:Provider Instructions for Treatment How to access health informa tion online Indication:Hypertension, benign Start:17-May-2019 Instruction Type:Patient Education How to access health informa tion online - Detail Indication:Hypertension, benign Start:17-May-2019 Instruction Type:Patient Education Patient Instructions Indication:Hypertension, benign Start:17-May-2019 Instruction Type:Provider Instructions for Treatment How to access health informa tion online Indication:Nonsmoker Start:14-Nov-2018 Instruction Type:Patient Education How to access health informa tion online - Detail Indication:Nonsmoker Start:14-Nov-2018 Instruction Type:Patient Education Patient Instructions Indication:Nonsmoker Start:14-Nov-2018 Instruction Type:Provider Instructions for Treatment How to access health informa tion online Indication:Nonsmoker Start:14-Sep-2018 Instruction Type:Patient Education How to access health informa tion online - Detail Indication:Nonsmoker Start:14-Sep-2018 Instruction Type:Patient Education Patient Instructions Indication:Nonsmoker Start:14-Sep-2018 Instruction Type:Provider Instructions for Treatment How to access health informa tion online Indication:Nonsmoker Start:04-Jul-2018 Instruction Type:Patient Education Patient Instructions Indication:Nonsmoker Start:04-Jul-2018 Instruction Type:Provider Instructions for Treatment How to access health informa tion online Indication:BMI 27.0-27.9,adult Start:14-Jun-2018 Instruction Type:Patient Education How to access health informa tion online - Detail Indication:BMI 27.0-27.9,adult Start:14-Jun-2018 Instruction Type:Patient Education Patient Instructions Indication:BMI 27.0-27.9,adult Start:14-Jun-2018 Instruction Type:Provider Instructions for Treatment How to access health informa tion online Indication:Need for prophylactic vaccination and inoculation against influenza (Renamed from Need for immunization against influenza) Start:19-May-2018 Instruction Type:Patient Education How to access health informa tion online - Detail Indication:Need for prophylactic vaccination and inoculation against influenza (Renamed from Need for immunization against influenza) Start:19-May-2018 Instruction Type:Patient Education Patient Instructions Indication:Need for prophylactic vaccination and inoculation against influenza (Renamed from Need for immunization against influenza) Start:19-May-2018 Instruction Type:Provider Instructions for Treatment How to access health informa tion online Indication:Nonsmoker Start:16-Nov-2017 Instruction Type:Patient Education How to access health informa tion online - Detail Indication:Nonsmoker Start:16-Nov-2017 Instruction Type:Patient Education Patient Instructions Indication:Nonsmoker Start:16-Nov-2017 Instruction Type:Provider Instructions for Treatment How to access health informa tion online Indication:Nonsmoker Start:10-Nov-2017 Instruction Type:Patient Education How to access health informa tion online - Detail Indication:Nonsmoker Start:10-Nov-2017 Instruction Type:Patient Education Patient Instructions Indication:Nonsmoker Start:10-Nov-2017 Instruction Type:Provider Instructions for Treatment How to access health informa tion online Indication:Nonsmoker Start:02-Nov-2016 Instruction Type:Patient Education How to access health informa tion online - Detail Indication:Nonsmoker Start:02-Nov-2016 Instruction Type:Patient Education Patient Instructions Indication:Nonsmoker Start:02-Nov-2016 Instruction Type:Provider Instructions for Treatment How to access health informa tion online - Detail Indication:Bronchitis Start:08-Sep-2016 Instruction Type:Patient Education Patient Instructions Indication:Bronchitis Start:08-Sep-2016 Instruction Type:Provider Instructions for Treatment How to access health informa tion online Indication:Encounter for screening mammogram for breast cancer (Renamed from Encounter for screening mammogram for malignant neoplasm of breast) Start:19-May-2016 Instruction Type:Patient Education How to access health informa tion online - Detail Indication:Encounter for screening mammogram for breast cancer (Renamed from Encounter for screening mammogram for malignant neoplasm of breast) Start:19-May-2016 Instruction Type:Patient Education Patient Instructions Indication:Encounter for screening mammogram for breast cancer (Renamed from Encounter for screening mammogram for malignant neoplasm of breast) Start:19-May-2016 Instruction Type:Provider Instructions for Treatment Patient Instructions Indication:Acute bronchitis due to other specified organisms Start:07-May-2016 Instruction Type:Provider Instructions for Treatment How to access health informa tion online Indication:Cough Start:08-Apr-2016 Instruction Type:Patient Education How to access health informa tion online - Detail Indication:Cough Start:08-Apr-2016 Instruction Type:Patient Education Patient Instructions Indication:Cough Start:08-Apr-2016 Instruction Type:Provider Instructions for Treatment How to access health informa tion online Indication:Cough Start:31-Mar-2016 Instruction Type:Patient Education How to access health informa tion online - Detail Indication:Cough Start:31-Mar-2016 Instruction Type:Patient Education Patient Instructions Indication:Cough Start:31-Mar-2016 Instruction Type:Provider Instructions for Treatment How to access health informa tion online - Detail Indication:Cough Start:09-Dec-2015 Instruction Type:Patient Education How to access health informa tion online - Detail Indication:Cough Start:09-Dec-2015 Instruction Type:Patient Education How to access health informa tion online - Detail Indication:Cough Start:09-Dec-2015 Instruction Type:Patient Education Patient Instructions Indication:Cough Start:09-Dec-2015 Instruction Type:Provider Instructions for Treatment How to access health informa tion online Indication:Rash/skin eruption Start:23-Apr-2015 Instruction Type:Patient Education How to access health informa tion online - Detail Indication:Rash/skin eruption Start:23-Apr-2015 Instruction Type:Patient Education Patient Instructions Indication:Rash/skin eruption Start:23-Apr-2015 Instruction Type:Provider Instructions for Treatment Patient Instructions Indication:Rash/skin eruption Start:18-Mar-2015 Instruction Type:Provider Instructions for Treatment Patient Instructions Indication:Acute bronchitis Start:29-Oct-2014 Instruction Type:Provider Instructions for Treatment How to access health informa tion online Indication:GERD (gastroesophageal reflux disease) Start:10-Jul-2014 Instruction Type:Patient Education How to access health informa tion online - Detail Indication:GERD (gastroesophageal reflux disease) Start:10-Jul-2014 Instruction Type:Patient Education Patient Instructions Indication:GERD (gastroesophageal reflux disease) Start:10-Jul-2014 Instruction Type:Provider Instructions for Treatment Patient Instructions Indication:GERD (gastroesophageal reflux disease) Start:12-May-2013 Instruction Type:Provider Instructions for Treatment [facility]; [facility] Work Phone: Instructions* Name Dates Details Patient Instructions Indication:BMI 28.0-28.9,adult Start:07-Oct-2022 Instruction Type:Provider Instructions for Treatment How to Access Health Informa tion Online using Patient Portal and [employer] Apps Indication:BMI 28.0-28.9,adult Start:07-Oct-2022 Instruction Type:Patient Education Patient Instructions Indication:BMI 28.0-28.9,adult Start:15-Jul-2022 Instruction Type:Provider Instructions for Treatment How to Access Health Informa tion Online using Patient Portal and [employer]rd [employer] Apps Indication:BMI 28.0-28.9,adult Start:15-Jul-2022 Instruction Type:Patient Education Patient Instructions Indication:Nonsmoker Start:06-Jul-2022 Instruction Type:Provider Instructions for Treatment How to Access Health Informa tion Online using Patient Portal and [employer] Apps Indication:Nonsmoker Start:06-Jul-2022 Instruction Type:Patient Education Patient Instructions Indication:BMI 26.0-26.9,adult Start:05-May-2022 Instruction Type:Provider Instructions for Treatment How to Access Health Informa tion Online using Patient Portal and [employer] Apps Indication:BMI 26.0-26.9,adult Start:05-May-2022 Instruction Type:Patient Education Patient Instructions Indication:Black tarry stools Start:13-Mar-2022 Instruction Type:Provider Instructions for Treatment Patient Instructions Indication:Nonsmoker Start:01-Jan-2022 Instruction Type:Provider Instructions for Treatment How to Access Health Informa tion Online using Patient Portal and [employer] Apps Indication:Nonsmoker Start:01-Jan-2022 Instruction Type:Patient Education Patient Instructions Indication:BMI 28.0-28.9,adult Start:18-Jun-2021 Instruction Type:Provider Instructions for Treatment How to Access Health Informa tion Online using Patient Portal and [employer] Apps Indication:BMI 28.0-28.9,adult Start:18-Jun-2021 Instruction Type:Patient Education How to Access Health Informa tion Online using Patient Portal and [employer] Apps Indication:Nonsmoker Start:23-Dec-2020 Instruction Type:Patient Education Patient Instructions Indication:Nonsmoker Start:23-Dec-2020 Instruction Type:Provider Instructions for Treatment How to Access Health Informa tion Online using Patient Portal and [employer]rd [employer] Apps Indication:Nonsmoker Start:11-Dec-2020 Instruction Type:Patient Education Patient Instructions Indication:Nonsmoker Start:11-Dec-2020 Instruction Type:Provider Instructions for Treatment How to access health informa tion online Indication:BMI 28.0-28.9,adult Start:18-Jul-2020 Instruction Type:Patient Education How to access health informa tion online - Detail Indication:BMI 28.0-28.9,adult Start:18-Jul-2020 Instruction Type:Patient Education Patient Instructions Indication:BMI 28.0-28.9,adult Start:18-Jul-2020 Instruction Type:Provider Instructions for Treatment How to access health informa tion online Indication:Nonsmoker Start:11-Jul-2020 Instruction Type:Patient Education How to access health informa tion online - Detail Indication:Nonsmoker Start:11-Jul-2020 Instruction Type:Patient Education Patient Instructions Indication:Nonsmoker Start:11-Jul-2020 Instruction Type:Provider Instructions for Treatment How to access health informa tion online Indication:BMI 27.0-27.9,adult Start:12-Jun-2020 Instruction Type:Patient Education How to access health informa tion online - Detail Indication:BMI 27.0-27.9,adult Start:12-Jun-2020 Instruction Type:Patient Education Patient Instructions Indication:BMI 27.0-27.9,adult Start:12-Jun-2020 Instruction Type:Provider Instructions for Treatment How to access health informa tion online Indication:BMI 27.0-27.9,adult Start:29-Apr-2020 Instruction Type:Patient Education How to access health informa tion online - Detail Indication:BMI 27.0-27.9,adult Start:29-Apr-2020 Instruction Type:Patient Education Patient Instructions Indication:BMI 27.0-27.9,adult Start:29-Apr-2020 Instruction Type:Provider Instructions for Treatment How to access health informa tion online Indication:Nonsmoker Start:21-Dec-2019 Instruction Type:Patient Education How to access health informa tion online - Detail Indication:Nonsmoker Start:21-Dec-2019 Instruction Type:Patient Education Patient Instructions Indication:Nonsmoker Start:21-Dec-2019 Instruction Type:Provider Instructions for Treatment How to access health informa tion online Indication:Nonsmoker Start:07-Dec-2019 Instruction Type:Patient Education How to access health informa tion online - Detail Indication:Nonsmoker Start:07-Dec-2019 Instruction Type:Patient Education Patient Instructions Indication:Nonsmoker Start:07-Dec-2019 Instruction Type:Provider Instructions for Treatment How to access health informa tion online Indication:BMI 27.0-27.9,adult Start:16-Nov-2019 Instruction Type:Patient Education How to access health informa tion online - Detail Indication:BMI 27.0-27.9,adult Start:16-Nov-2019 Instruction Type:Patient Education Patient Instructions Indication:BMI 27.0-27.9,adult Start:16-Nov-2019 Instruction Type:Provider Instructions for Treatment How to access health informa tion online Indication:BMI 28.0-28.9,adult Start:07-Sep-2019 Instruction Type:Patient Education How to access health informa tion online - Detail Indication:BMI 28.0-28.9,adult Start:07-Sep-2019 Instruction Type:Patient Education Patient Instructions Indication:Post-nasal drainage Start:07-Sep-2019 Instruction Type:Provider Instructions for Treatment How to access health informa tion online Indication:Hypertension, benign Start:17-May-2019 Instruction Type:Patient Education How to access health informa tion online - Detail Indication:Hypertension, benign Start:17-May-2019 Instruction Type:Patient Education Patient Instructions Indication:Hypertension, benign Start:17-May-2019 Instruction Type:Provider Instructions for Treatment How to access health informa tion online Indication:Nonsmoker Start:14-Nov-2018 Instruction Type:Patient Education How to access health informa tion online - Detail Indication:Nonsmoker Start:14-Nov-2018 Instruction Type:Patient Education Patient Instructions Indication:Nonsmoker Start:14-Nov-2018 Instruction Type:Provider Instructions for Treatment How to access health informa tion online Indication:Nonsmoker Start:14-Sep-2018 Instruction Type:Patient Education How to access health informa tion online - Detail Indication:Nonsmoker Start:14-Sep-2018 Instruction Type:Patient Education Patient Instructions Indication:Nonsmoker Start:14-Sep-2018 Instruction Type:Provider Instructions for Treatment How to access health informa tion online Indication:Nonsmoker Start:04-Jul-2018 Instruction Type:Patient Education Patient Instructions Indication:Nonsmoker Start:04-Jul-2018 Instruction Type:Provider Instructions for Treatment How to access health informa tion online Indication:BMI 27.0-27.9,adult Start:14-Jun-2018 Instruction Type:Patient Education How to access health informa tion online - Detail Indication:BMI 27.0-27.9,adult Start:14-Jun-2018 Instruction Type:Patient Education Patient Instructions Indication:BMI 27.0-27.9,adult Start:14-Jun-2018 Instruction Type:Provider Instructions for Treatment How to access health informa tion online Indication:Need for prophylactic vaccination and inoculation against influenza (Renamed from Need for immunization against influenza) Start:19-May-2018 Instruction Type:Patient Education How to access health informa tion online - Detail Indication:Need for prophylactic vaccination and inoculation against influenza (Renamed from Need for immunization against influenza) Start:19-May-2018 Instruction Type:Patient Education Patient Instructions Indication:Need for prophylactic vaccination and inoculation against influenza (Renamed from Need for immunization against influenza) Start:19-May-2018 Instruction Type:Provider Instructions for Treatment How to access health informa tion online Indication:Nonsmoker Start:16-Nov-2017 Instruction Type:Patient Education How to access health informa tion online - Detail Indication:Nonsmoker Start:16-Nov-2017 Instruction Type:Patient Education Patient Instructions Indication:Nonsmoker Start:16-Nov-2017 Instruction Type:Provider Instructions for Treatment How to access health informa tion online Indication:Nonsmoker Start:10-Nov-2017 Instruction Type:Patient Education How to access health informa tion online - Detail Indication:Nonsmoker Start:10-Nov-2017 Instruction Type:Patient Education Patient Instructions Indication:Nonsmoker Start:10-Nov-2017 Instruction Type:Provider Instructions for Treatment How to access health informa tion online Indication:Nonsmoker Start:02-Nov-2016 Instruction Type:Patient Education How to access health informa tion online - Detail Indication:Nonsmoker Start:02-Nov-2016 Instruction Type:Patient Education Patient Instructions Indication:Nonsmoker Start:02-Nov-2016 Instruction Type:Provider Instructions for Treatment How to access health informa tion online - Detail Indication:Bronchitis Start:08-Sep-2016 Instruction Type:Patient Education Patient Instructions Indication:Bronchitis Start:08-Sep-2016 Instruction Type:Provider Instructions for Treatment How to access health informa tion online Indication:Encounter for screening mammogram for breast cancer (Renamed from Encounter for screening mammogram for malignant neoplasm of breast) Start:19-May-2016 Instruction Type:Patient Education How to access health informa tion online - Detail Indication:Encounter for screening mammogram for breast cancer (Renamed from Encounter for screening mammogram for malignant neoplasm of breast) Start:19-May-2016 Instruction Type:Patient Education Patient Instructions Indication:Encounter for screening mammogram for breast cancer (Renamed from Encounter for screening mammogram for malignant neoplasm of breast) Start:19-May-2016 Instruction Type:Provider Instructions for Treatment Patient Instructions Indication:Acute bronchitis due to other specified organisms Start:07-May-2016 Instruction Type:Provider Instructions for Treatment How to access health informa tion online Indication:Cough Start:08-Apr-2016 Instruction Type:Patient Education How to access health informa tion online - Detail Indication:Cough Start:08-Apr-2016 Instruction Type:Patient Education Patient Instructions Indication:Cough Start:08-Apr-2016 Instruction Type:Provider Instructions for Treatment How to access health informa tion online Indication:Cough Start:31-Mar-2016 Instruction Type:Patient Education How to access health informa tion online - Detail Indication:Cough Start:31-Mar-2016 Instruction Type:Patient Education Patient Instructions Indication:Cough Start:31-Mar-2016 Instruction Type:Provider Instructions for Treatment How to access health informa tion online - Detail Indication:Cough Start:09-Dec-2015 Instruction Type:Patient Education How to access health informa tion online - Detail Indication:Cough Start:09-Dec-2015 Instruction Type:Patient Education How to access health informa tion online - Detail Indication:Cough Start:09-Dec-2015 Instruction Type:Patient Education Patient Instructions Indication:Cough Start:09-Dec-2015 Instruction Type:Provider Instructions for Treatment How to access health informa tion online Indication:Rash/skin eruption Start:23-Apr-2015 Instruction Type:Patient Education How to access health informa tion online - Detail Indication:Rash/skin eruption Start:23-Apr-2015 Instruction Type:Patient Education Patient Instructions Indication:Rash/skin eruption Start:23-Apr-2015 Instruction Type:Provider Instructions for Treatment Patient Instructions Indication:Rash/skin eruption Start:18-Mar-2015 Instruction Type:Provider Instructions for Treatment Patient Instructions Indication:Acute bronchitis Start:29-Oct-2014 Instruction Type:Provider Instructions for Treatment How to access health informa tion online Indication:GERD (gastroesophageal reflux disease) Start:10-Jul-2014 Instruction Type:Patient Education How to access health informa tion online - Detail Indication:GERD (gastroesophageal reflux disease) Start:10-Jul-2014 Instruction Type:Patient Education Patient Instructions Indication:GERD (gastroesophageal reflux disease) Start:10-Jul-2014 Instruction Type:Provider Instructions for Treatment Patient Instructions Indication:GERD (gastroesophageal reflux disease) Start:12-May-2013 Instruction Type:Provider Instructions for Treatment [facility]; [facility] Work Phone: Instructions* Name Dates Details Patient Instructions Indication:BMI 28.0-28.9,adult Start:07-Oct-2022 Instruction Type:Provider Instructions for Treatment How to Access Health Informa tion Online using Patient Portal and [employer]rd [employer] Apps Indication:BMI 28.0-28.9,adult Start:07-Oct-2022 Instruction Type:Patient Education Patient Instructions Indication:BMI 28.0-28.9,adult Start:15-Jul-2022 Instruction Type:Provider Instructions for Treatment How to Access Health Informa tion Online using Patient Portal and [employer]rd [employer] Apps Indication:BMI 28.0-28.9,adult Start:15-Jul-2022 Instruction Type:Patient Education Patient Instructions Indication:Nonsmoker Start:06-Jul-2022 Instruction Type:Provider Instructions for Treatment How to Access Health Informa tion Online using Patient Portal and [employer]rd [employer] Apps Indication:Nonsmoker Start:06-Jul-2022 Instruction Type:Patient Education Patient Instructions Indication:BMI 26.0-26.9,adult Start:05-May-2022 Instruction Type:Provider Instructions for Treatment How to Access Health Informa tion Online using Patient Portal and [employer]rd [employer] Apps Indication:BMI 26.0-26.9,adult Start:05-May-2022 Instruction Type:Patient Education Patient Instructions Indication:Black tarry stools Start:13-Mar-2022 Instruction Type:Provider Instructions for Treatment Patient Instructions Indication:Nonsmoker Start:01-Jan-2022 Instruction Type:Provider Instructions for Treatment How to Access Health Informa tion Online using Patient Portal and [employer]rd [employer] Apps Indication:Nonsmoker Start:01-Jan-2022 Instruction Type:Patient Education Patient Instructions Indication:BMI 28.0-28.9,adult Start:18-Jun-2021 Instruction Type:Provider Instructions for Treatment How to Access Health Informa tion Online using Patient Portal and [employer]rd [employer] Apps Indication:BMI 28.0-28.9,adult Start:18-Jun-2021 Instruction Type:Patient Education How to Access Health Informa tion Online using Patient Portal and [employer]rd [employer] Apps Indication:Nonsmoker Start:23-Dec-2020 Instruction Type:Patient Education Patient Instructions Indication:Nonsmoker Start:23-Dec-2020 Instruction Type:Provider Instructions for Treatment How to Access Health Informa tion Online using Patient Portal and [employer]rd [employer] Apps Indication:Nonsmoker Start:11-Dec-2020 Instruction Type:Patient Education Patient Instructions Indication:Nonsmoker Start:11-Dec-2020 Instruction Type:Provider Instructions for Treatment How to access health informa tion online Indication:BMI 28.0-28.9,adult Start:18-Jul-2020 Instruction Type:Patient Education How to access health informa tion online - Detail Indication:BMI 28.0-28.9,adult Start:18-Jul-2020 Instruction Type:Patient Education Patient Instructions Indication:BMI 28.0-28.9,adult Start:18-Jul-2020 Instruction Type:Provider Instructions for Treatment How to access health informa tion online Indication:Nonsmoker Start:11-Jul-2020 Instruction Type:Patient Education How to access health informa tion online - Detail Indication:Nonsmoker Start:11-Jul-2020 Instruction Type:Patient Education Patient Instructions Indication:Nonsmoker Start:11-Jul-2020 Instruction Type:Provider Instructions for Treatment How to access health informa tion online Indication:BMI 27.0-27.9,adult Start:12-Jun-2020 Instruction Type:Patient Education How to access health informa tion online - Detail Indication:BMI 27.0-27.9,adult Start:12-Jun-2020 Instruction Type:Patient Education Patient Instructions Indication:BMI 27.0-27.9,adult Start:12-Jun-2020 Instruction Type:Provider Instructions for Treatment How to access health informa tion online Indication:BMI 27.0-27.9,adult Start:29-Apr-2020 Instruction Type:Patient Education How to access health informa tion online - Detail Indication:BMI 27.0-27.9,adult Start:29-Apr-2020 Instruction Type:Patient Education Patient Instructions Indication:BMI 27.0-27.9,adult Start:29-Apr-2020 Instruction Type:Provider Instructions for Treatment How to access health informa tion online Indication:Nonsmoker Start:21-Dec-2019 Instruction Type:Patient Education How to access health informa tion online - Detail Indication:Nonsmoker Start:21-Dec-2019 Instruction Type:Patient Education Patient Instructions Indication:Nonsmoker Start:21-Dec-2019 Instruction Type:Provider Instructions for Treatment How to access health informa tion online Indication:Nonsmoker Start:07-Dec-2019 Instruction Type:Patient Education How to access health informa tion online - Detail Indication:Nonsmoker Start:07-Dec-2019 Instruction Type:Patient Education Patient Instructions Indication:Nonsmoker Start:07-Dec-2019 Instruction Type:Provider Instructions for Treatment How to access health informa tion online Indication:BMI 27.0-27.9,adult Start:16-Nov-2019 Instruction Type:Patient Education How to access health informa tion online - Detail Indication:BMI 27.0-27.9,adult Start:16-Nov-2019 Instruction Type:Patient Education Patient Instructions Indication:BMI 27.0-27.9,adult Start:16-Nov-2019 Instruction Type:Provider Instructions for Treatment How to access health informa tion online Indication:BMI 28.0-28.9,adult Start:07-Sep-2019 Instruction Type:Patient Education How to access health informa tion online - Detail Indication:BMI 28.0-28.9,adult Start:07-Sep-2019 Instruction Type:Patient Education Patient Instructions Indication:Post-nasal drainage Start:07-Sep-2019 Instruction Type:Provider Instructions for Treatment How to access health informa tion online Indication:Hypertension, benign Start:17-May-2019 Instruction Type:Patient Education How to access health informa tion online - Detail Indication:Hypertension, benign Start:17-May-2019 Instruction Type:Patient Education Patient Instructions Indication:Hypertension, benign Start:17-May-2019 Instruction Type:Provider Instructions for Treatment How to access health informa tion online Indication:Nonsmoker Start:14-Nov-2018 Instruction Type:Patient Education How to access health informa tion online - Detail Indication:Nonsmoker Start:14-Nov-2018 Instruction Type:Patient Education Patient Instructions Indication:Nonsmoker Start:14-Nov-2018 Instruction Type:Provider Instructions for Treatment How to access health informa tion online Indication:Nonsmoker Start:14-Sep-2018 Instruction Type:Patient Education How to access health informa tion online - Detail Indication:Nonsmoker Start:14-Sep-2018 Instruction Type:Patient Education Patient Instructions Indication:Nonsmoker Start:14-Sep-2018 Instruction Type:Provider Instructions for Treatment How to access health informa tion online Indication:Nonsmoker Start:04-Jul-2018 Instruction Type:Patient Education Patient Instructions Indication:Nonsmoker Start:04-Jul-2018 Instruction Type:Provider Instructions for Treatment How to access health informa tion online Indication:BMI 27.0-27.9,adult Start:14-Jun-2018 Instruction Type:Patient Education How to access health informa tion online - Detail Indication:BMI 27.0-27.9,adult Start:14-Jun-2018 Instruction Type:Patient Education Patient Instructions Indication:BMI 27.0-27.9,adult Start:14-Jun-2018 Instruction Type:Provider Instructions for Treatment How to access health informa tion online Indication:Need for prophylactic vaccination and inoculation against influenza (Renamed from Need for immunization against influenza) Start:19-May-2018 Instruction Type:Patient Education How to access health informa tion online - Detail Indication:Need for prophylactic vaccination and inoculation against influenza (Renamed from Need for immunization against influenza) Start:19-May-2018 Instruction Type:Patient Education Patient Instructions Indication:Need for prophylactic vaccination and inoculation against influenza (Renamed from Need for immunization against influenza) Start:19-May-2018 Instruction Type:Provider Instructions for Treatment How to access health informa tion online Indication:Nonsmoker Start:16-Nov-2017 Instruction Type:Patient Education How to access health informa tion online - Detail Indication:Nonsmoker Start:16-Nov-2017 Instruction Type:Patient Education Patient Instructions Indication:Nonsmoker Start:16-Nov-2017 Instruction Type:Provider Instructions for Treatment How to access health informa tion online Indication:Nonsmoker Start:10-Nov-2017 Instruction Type:Patient Education How to access health informa tion online - Detail Indication:Nonsmoker Start:10-Nov-2017 Instruction Type:Patient Education Patient Instructions Indication:Nonsmoker Start:10-Nov-2017 Instruction Type:Provider Instructions for Treatment How to access health informa tion online Indication:Nonsmoker Start:02-Nov-2016 Instruction Type:Patient Education How to access health informa tion online - Detail Indication:Nonsmoker Start:02-Nov-2016 Instruction Type:Patient Education Patient Instructions Indication:Nonsmoker Start:02-Nov-2016 Instruction Type:Provider Instructions for Treatment How to access health informa tion online - Detail Indication:Bronchitis Start:08-Sep-2016 Instruction Type:Patient Education Patient Instructions Indication:Bronchitis Start:08-Sep-2016 Instruction Type:Provider Instructions for Treatment How to access health informa tion online Indication:Encounter for screening mammogram for breast cancer (Renamed from Encounter for screening mammogram for malignant neoplasm of breast) Start:19-May-2016 Instruction Type:Patient Education How to access health informa tion online - Detail Indication:Encounter for screening mammogram for breast cancer (Renamed from Encounter for screening mammogram for malignant neoplasm of breast) Start:19-May-2016 Instruction Type:Patient Education Patient Instructions Indication:Encounter for screening mammogram for breast cancer (Renamed from Encounter for screening mammogram for malignant neoplasm of breast) Start:19-May-2016 Instruction Type:Provider Instructions for Treatment Patient Instructions Indication:Acute bronchitis due to other specified organisms Start:07-May-2016 Instruction Type:Provider Instructions for Treatment How to access health informa tion online Indication:Cough Start:08-Apr-2016 Instruction Type:Patient Education How to access health informa tion online - Detail Indication:Cough Start:08-Apr-2016 Instruction Type:Patient Education Patient Instructions Indication:Cough Start:08-Apr-2016 Instruction Type:Provider Instructions for Treatment How to access health informa tion online Indication:Cough Start:31-Mar-2016 Instruction Type:Patient Education How to access health informa tion online - Detail Indication:Cough Start:31-Mar-2016 Instruction Type:Patient Education Patient Instructions Indication:Cough Start:31-Mar-2016 Instruction Type:Provider Instructions for Treatment How to access health informa tion online - Detail Indication:Cough Start:09-Dec-2015 Instruction Type:Patient Education How to access health informa tion online - Detail Indication:Cough Start:09-Dec-2015 Instruction Type:Patient Education How to access health informa tion online - Detail Indication:Cough Start:09-Dec-2015 Instruction Type:Patient Education Patient Instructions Indication:Cough Start:09-Dec-2015 Instruction Type:Provider Instructions for Treatment How to access health informa tion online Indication:Rash/skin eruption Start:23-Apr-2015 Instruction Type:Patient Education How to access health informa tion online - Detail Indication:Rash/skin eruption Start:23-Apr-2015 Instruction Type:Patient Education Patient Instructions Indication:Rash/skin eruption Start:23-Apr-2015 Instruction Type:Provider Instructions for Treatment Patient Instructions Indication:Rash/skin eruption Start:18-Mar-2015 Instruction Type:Provider Instructions for Treatment Patient Instructions Indication:Acute bronchitis Start:29-Oct-2014 Instruction Type:Provider Instructions for Treatment How to access health informa tion online Indication:GERD (gastroesophageal reflux disease) Start:10-Jul-2014 Instruction Type:Patient Education How to access health informa tion online - Detail Indication:GERD (gastroesophageal reflux disease) Start:10-Jul-2014 Instruction Type:Patient Education Patient Instructions Indication:GERD (gastroesophageal reflux disease) Start:10-Jul-2014 Instruction Type:Provider Instructions for Treatment Patient Instructions Indication:GERD (gastroesophageal reflux disease) Start:12-May-2013 Instruction Type:Provider Instructions for Treatment [facility]; [facility] Work Phone: Instructions* Name Dates Details Patient Instructions Indication:BMI 28.0-28.9,adult Start:13-Jan-2023 Instruction Type:Provider Instructions for Treatment How to Access Health Informa tion Online using Patient Portal and [employer]rd [employer] Apps Indication:BMI 28.0-28.9,adult Start:13-Jan-2023 Instruction Type:Patient Education Patient Instructions Indication:BMI 28.0-28.9,adult Start:07-Oct-2022 Instruction Type:Provider Instructions for Treatment How to Access Health Informa tion Online using Patient Portal and [employer]rd [employer] Apps Indication:BMI 28.0-28.9,adult Start:07-Oct-2022 Instruction Type:Patient Education Patient Instructions Indication:BMI 28.0-28.9,adult Start:15-Jul-2022 Instruction Type:Provider Instructions for Treatment How to Access Health Informa tion Online using Patient Portal and [employer]rd [employer] Apps Indication:BMI 28.0-28.9,adult Start:15-Jul-2022 Instruction Type:Patient Education Patient Instructions Indication:Nonsmoker Start:06-Jul-2022 Instruction Type:Provider Instructions for Treatment How to Access Health Informa tion Online using Patient Portal and [employer]rd [employer] Apps Indication:Nonsmoker Start:06-Jul-2022 Instruction Type:Patient Education Patient Instructions Indication:BMI 26.0-26.9,adult Start:05-May-2022 Instruction Type:Provider Instructions for Treatment How to Access Health Informa tion Online using Patient Portal and [employer]rd [employer] Apps Indication:BMI 26.0-26.9,adult Start:05-May-2022 Instruction Type:Patient Education Patient Instructions Indication:Black tarry stools Start:13-Mar-2022 Instruction Type:Provider Instructions for Treatment Patient Instructions Indication:Nonsmoker Start:01-Jan-2022 Instruction Type:Provider Instructions for Treatment How to Access Health Informa tion Online using Patient Portal and [employer]rd [employer] Apps Indication:Nonsmoker Start:01-Jan-2022 Instruction Type:Patient Education Patient Instructions Indication:BMI 28.0-28.9,adult Start:18-Jun-2021 Instruction Type:Provider Instructions for Treatment How to Access Health Informa tion Online using Patient Portal and [employer]rd [employer] Apps Indication:BMI 28.0-28.9,adult Start:18-Jun-2021 Instruction Type:Patient Education How to Access Health Informa tion Online using Patient Portal and [employer]rd [employer] Apps Indication:Nonsmoker Start:23-Dec-2020 Instruction Type:Patient Education Patient Instructions Indication:Nonsmoker Start:23-Dec-2020 Instruction Type:Provider Instructions for Treatment How to Access Health Informa tion Online using Patient Portal and [employer]rd [employer] Apps Indication:Nonsmoker Start:11-Dec-2020 Instruction Type:Patient Education Patient Instructions Indication:Nonsmoker Start:11-Dec-2020 Instruction Type:Provider Instructions for Treatment How to access health informa tion online Indication:BMI 28.0-28.9,adult Start:18-Jul-2020 Instruction Type:Patient Education How to access health informa tion online - Detail Indication:BMI 28.0-28.9,adult Start:18-Jul-2020 Instruction Type:Patient Education Patient Instructions Indication:BMI 28.0-28.9,adult Start:18-Jul-2020 Instruction Type:Provider Instructions for Treatment How to access health informa tion online Indication:Nonsmoker Start:11-Jul-2020 Instruction Type:Patient Education How to access health informa tion online - Detail Indication:Nonsmoker Start:11-Jul-2020 Instruction Type:Patient Education Patient Instructions Indication:Nonsmoker Start:11-Jul-2020 Instruction Type:Provider Instructions for Treatment How to access health informa tion online Indication:BMI 27.0-27.9,adult Start:12-Jun-2020 Instruction Type:Patient Education How to access health informa tion online - Detail Indication:BMI 27.0-27.9,adult Start:12-Jun-2020 Instruction Type:Patient Education Patient Instructions Indication:BMI 27.0-27.9,adult Start:12-Jun-2020 Instruction Type:Provider Instructions for Treatment How to access health informa tion online Indication:BMI 27.0-27.9,adult Start:29-Apr-2020 Instruction Type:Patient Education How to access health informa tion online - Detail Indication:BMI 27.0-27.9,adult Start:29-Apr-2020 Instruction Type:Patient Education Patient Instructions Indication:BMI 27.0-27.9,adult Start:29-Apr-2020 Instruction Type:Provider Instructions for Treatment How to access health informa tion online Indication:Nonsmoker Start:21-Dec-2019 Instruction Type:Patient Education How to access health informa tion online - Detail Indication:Nonsmoker Start:21-Dec-2019 Instruction Type:Patient Education Patient Instructions Indication:Nonsmoker Start:21-Dec-2019 Instruction Type:Provider Instructions for Treatment How to access health informa tion online Indication:Nonsmoker Start:07-Dec-2019 Instruction Type:Patient Education How to access health informa tion online - Detail Indication:Nonsmoker Start:07-Dec-2019 Instruction Type:Patient Education Patient Instructions Indication:Nonsmoker Start:07-Dec-2019 Instruction Type:Provider Instructions for Treatment How to access health informa tion online Indication:BMI 27.0-27.9,adult Start:16-Nov-2019 Instruction Type:Patient Education How to access health informa tion online - Detail Indication:BMI 27.0-27.9,adult Start:16-Nov-2019 Instruction Type:Patient Education Patient Instructions Indication:BMI 27.0-27.9,adult Start:16-Nov-2019 Instruction Type:Provider Instructions for Treatment How to access health informa tion online Indication:BMI 28.0-28.9,adult Start:07-Sep-2019 Instruction Type:Patient Education How to access health informa tion online - Detail Indication:BMI 28.0-28.9,adult Start:07-Sep-2019 Instruction Type:Patient Education Patient Instructions Indication:Post-nasal drainage Start:07-Sep-2019 Instruction Type:Provider Instructions for Treatment How to access health informa tion online Indication:Hypertension, benign Start:17-May-2019 Instruction Type:Patient Education How to access health informa tion online - Detail Indication:Hypertension, benign Start:17-May-2019 Instruction Type:Patient Education Patient Instructions Indication:Hypertension, benign Start:17-May-2019 Instruction Type:Provider Instructions for Treatment How to access health informa tion online Indication:Nonsmoker Start:14-Nov-2018 Instruction Type:Patient Education How to access health informa tion online - Detail Indication:Nonsmoker Start:14-Nov-2018 Instruction Type:Patient Education Patient Instructions Indication:Nonsmoker Start:14-Nov-2018 Instruction Type:Provider Instructions for Treatment How to access health informa tion online Indication:Nonsmoker Start:14-Sep-2018 Instruction Type:Patient Education How to access health informa tion online - Detail Indication:Nonsmoker Start:14-Sep-2018 Instruction Type:Patient Education Patient Instructions Indication:Nonsmoker Start:14-Sep-2018 Instruction Type:Provider Instructions for Treatment How to access health informa tion online Indication:Nonsmoker Start:04-Jul-2018 Instruction Type:Patient Education Patient Instructions Indication:Nonsmoker Start:04-Jul-2018 Instruction Type:Provider Instructions for Treatment How to access health informa tion online Indication:BMI 27.0-27.9,adult Start:14-Jun-2018 Instruction Type:Patient Education How to access health informa tion online - Detail Indication:BMI 27.0-27.9,adult Start:14-Jun-2018 Instruction Type:Patient Education Patient Instructions Indication:BMI 27.0-27.9,adult Start:14-Jun-2018 Instruction Type:Provider Instructions for Treatment How to access health informa tion online Indication:Need for prophylactic vaccination and inoculation against influenza (Renamed from Need for immunization against influenza) Start:19-May-2018 Instruction Type:Patient Education How to access health informa tion online - Detail Indication:Need for prophylactic vaccination and inoculation against influenza (Renamed from Need for immunization against influenza) Start:19-May-2018 Instruction Type:Patient Education Patient Instructions Indication:Need for prophylactic vaccination and inoculation against influenza (Renamed from Need for immunization against influenza) Start:19-May-2018 Instruction Type:Provider Instructions for Treatment How to access health informa tion online Indication:Nonsmoker Start:16-Nov-2017 Instruction Type:Patient Education How to access health informa tion online - Detail Indication:Nonsmoker Start:16-Nov-2017 Instruction Type:Patient Education Patient Instructions Indication:Nonsmoker Start:16-Nov-2017 Instruction Type:Provider Instructions for Treatment How to access health informa tion online Indication:Nonsmoker Start:10-Nov-2017 Instruction Type:Patient Education How to access health informa tion online - Detail Indication:Nonsmoker Start:10-Nov-2017 Instruction Type:Patient Education Patient Instructions Indication:Nonsmoker Start:10-Nov-2017 Instruction Type:Provider Instructions for Treatment How to access health informa tion online Indication:Nonsmoker Start:02-Nov-2016 Instruction Type:Patient Education How to access health informa tion online - Detail Indication:Nonsmoker Start:02-Nov-2016 Instruction Type:Patient Education Patient Instructions Indication:Nonsmoker Start:02-Nov-2016 Instruction Type:Provider Instructions for Treatment How to access health informa tion online - Detail Indication:Bronchitis Start:08-Sep-2016 Instruction Type:Patient Education Patient Instructions Indication:Bronchitis Start:08-Sep-2016 Instruction Type:Provider Instructions for Treatment How to access health informa tion online Indication:Encounter for screening mammogram for breast cancer (Renamed from Encounter for screening mammogram for malignant neoplasm of breast) Start:19-May-2016 Instruction Type:Patient Education How to access health informa tion online - Detail Indication:Encounter for screening mammogram for breast cancer (Renamed from Encounter for screening mammogram for malignant neoplasm of breast) Start:19-May-2016 Instruction Type:Patient Education Patient Instructions Indication:Encounter for screening mammogram for breast cancer (Renamed from Encounter for screening mammogram for malignant neoplasm of breast) Start:19-May-2016 Instruction Type:Provider Instructions for Treatment Patient Instructions Indication:Acute bronchitis due to other specified organisms Start:07-May-2016 Instruction Type:Provider Instructions for Treatment How to access health informa tion online Indication:Cough Start:08-Apr-2016 Instruction Type:Patient Education How to access health informa tion online - Detail Indication:Cough Start:08-Apr-2016 Instruction Type:Patient Education Patient Instructions Indication:Cough Start:08-Apr-2016 Instruction Type:Provider Instructions for Treatment How to access health informa tion online Indication:Cough Start:31-Mar-2016 Instruction Type:Patient Education How to access health informa tion online - Detail Indication:Cough Start:31-Mar-2016 Instruction Type:Patient Education Patient Instructions Indication:Cough Start:31-Mar-2016 Instruction Type:Provider Instructions for Treatment How to access health informa tion online - Detail Indication:Cough Start:09-Dec-2015 Instruction Type:Patient Education How to access health informa tion online - Detail Indication:Cough Start:09-Dec-2015 Instruction Type:Patient Education How to access health informa tion online - Detail Indication:Cough Start:09-Dec-2015 Instruction Type:Patient Education Patient Instructions Indication:Cough Start:09-Dec-2015 Instruction Type:Provider Instructions for Treatment How to access health informa tion online Indication:Rash/skin eruption Start:23-Apr-2015 Instruction Type:Patient Education How to access health informa tion online - Detail Indication:Rash/skin eruption Start:23-Apr-2015 Instruction Type:Patient Education Patient Instructions Indication:Rash/skin eruption Start:23-Apr-2015 Instruction Type:Provider Instructions for Treatment Patient Instructions Indication:Rash/skin eruption Start:18-Mar-2015 Instruction Type:Provider Instructions for Treatment Patient Instructions Indication:Acute bronchitis Start:29-Oct-2014 Instruction Type:Provider Instructions for Treatment How to access health informa tion online Indication:GERD (gastroesophageal reflux disease) Start:10-Jul-2014 Instruction Type:Patient Education How to access health informa tion online - Detail Indication:GERD (gastroesophageal reflux disease) Start:10-Jul-2014 Instruction Type:Patient Education Patient Instructions Indication:GERD (gastroesophageal reflux disease) Start:10-Jul-2014 Instruction Type:Provider Instructions for Treatment Patient Instructions Indication:GERD (gastroesophageal reflux disease) Start:12-May-2013 Instruction Type:Provider Instructions for Treatment [facility]; [facility] Work Phone: Instructions* Name Dates Details Patient Instructions Indication:BMI 28.0-28.9,adult Start:13-Jan-2023 Instruction Type:Provider Instructions for Treatment How to Access Health Informa tion Online using Patient Portal and [employer]rd [employer] Apps Indication:BMI 28.0-28.9,adult Start:13-Jan-2023 Instruction Type:Patient Education Patient Instructions Indication:BMI 28.0-28.9,adult Start:07-Oct-2022 Instruction Type:Provider Instructions for Treatment How to Access Health Informa tion Online using Patient Portal and [employer]rd [employer] Apps Indication:BMI 28.0-28.9,adult Start:07-Oct-2022 Instruction Type:Patient Education Patient Instructions Indication:BMI 28.0-28.9,adult Start:15-Jul-2022 Instruction Type:Provider Instructions for Treatment How to Access Health Informa tion Online using Patient Portal and [employer]rd [employer] Apps Indication:BMI 28.0-28.9,adult Start:15-Jul-2022 Instruction Type:Patient Education Patient Instructions Indication:Nonsmoker Start:06-Jul-2022 Instruction Type:Provider Instructions for Treatment How to Access Health Informa tion Online using Patient Portal and [employer]rd [employer] Apps Indication:Nonsmoker Start:06-Jul-2022 Instruction Type:Patient Education Patient Instructions Indication:BMI 26.0-26.9,adult Start:05-May-2022 Instruction Type:Provider Instructions for Treatment How to Access Health Informa tion Online using Patient Portal and [employer]rd [employer] Apps Indication:BMI 26.0-26.9,adult Start:05-May-2022 Instruction Type:Patient Education Patient Instructions Indication:Black tarry stools Start:13-Mar-2022 Instruction Type:Provider Instructions for Treatment Patient Instructions Indication:Nonsmoker Start:01-Jan-2022 Instruction Type:Provider Instructions for Treatment How to Access Health Informa tion Online using Patient Portal and [employer]rd [employer] Apps Indication:Nonsmoker Start:01-Jan-2022 Instruction Type:Patient Education Patient Instructions Indication:BMI 28.0-28.9,adult Start:18-Jun-2021 Instruction Type:Provider Instructions for Treatment How to Access Health Informa tion Online using Patient Portal and [employer]rd [employer] Apps Indication:BMI 28.0-28.9,adult Start:18-Jun-2021 Instruction Type:Patient Education How to Access Health Informa tion Online using Patient Portal and [employer]rd [employer] Apps Indication:Nonsmoker Start:23-Dec-2020 Instruction Type:Patient Education Patient Instructions Indication:Nonsmoker Start:23-Dec-2020 Instruction Type:Provider Instructions for Treatment How to Access Health Informa tion Online using Patient Portal and [employer]rd [employer] Apps Indication:Nonsmoker Start:11-Dec-2020 Instruction Type:Patient Education Patient Instructions Indication:Nonsmoker Start:11-Dec-2020 Instruction Type:Provider Instructions for Treatment How to access health informa tion online Indication:BMI 28.0-28.9,adult Start:18-Jul-2020 Instruction Type:Patient Education How to access health informa tion online - Detail Indication:BMI 28.0-28.9,adult Start:18-Jul-2020 Instruction Type:Patient Education Patient Instructions Indication:BMI 28.0-28.9,adult Start:18-Jul-2020 Instruction Type:Provider Instructions for Treatment How to access health informa tion online Indication:Nonsmoker Start:11-Jul-2020 Instruction Type:Patient Education How to access health informa tion online - Detail Indication:Nonsmoker Start:11-Jul-2020 Instruction Type:Patient Education Patient Instructions Indication:Nonsmoker Start:11-Jul-2020 Instruction Type:Provider Instructions for Treatment How to access health informa tion online Indication:BMI 27.0-27.9,adult Start:12-Jun-2020 Instruction Type:Patient Education How to access health informa tion online - Detail Indication:BMI 27.0-27.9,adult Start:12-Jun-2020 Instruction Type:Patient Education Patient Instructions Indication:BMI 27.0-27.9,adult Start:12-Jun-2020 Instruction Type:Provider Instructions for Treatment How to access health informa tion online Indication:BMI 27.0-27.9,adult Start:29-Apr-2020 Instruction Type:Patient Education How to access health informa tion online - Detail Indication:BMI 27.0-27.9,adult Start:29-Apr-2020 Instruction Type:Patient Education Patient Instructions Indication:BMI 27.0-27.9,adult Start:29-Apr-2020 Instruction Type:Provider Instructions for Treatment How to access health informa tion online Indication:Nonsmoker Start:21-Dec-2019 Instruction Type:Patient Education How to access health informa tion online - Detail Indication:Nonsmoker Start:21-Dec-2019 Instruction Type:Patient Education Patient Instructions Indication:Nonsmoker Start:21-Dec-2019 Instruction Type:Provider Instructions for Treatment How to access health informa tion online Indication:Nonsmoker Start:07-Dec-2019 Instruction Type:Patient Education How to access health informa tion online - Detail Indication:Nonsmoker Start:07-Dec-2019 Instruction Type:Patient Education Patient Instructions Indication:Nonsmoker Start:07-Dec-2019 Instruction Type:Provider Instructions for Treatment How to access health informa tion online Indication:BMI 27.0-27.9,adult Start:16-Nov-2019 Instruction Type:Patient Education How to access health informa tion online - Detail Indication:BMI 27.0-27.9,adult Start:16-Nov-2019 Instruction Type:Patient Education Patient Instructions Indication:BMI 27.0-27.9,adult Start:16-Nov-2019 Instruction Type:Provider Instructions for Treatment How to access health informa tion online Indication:BMI 28.0-28.9,adult Start:07-Sep-2019 Instruction Type:Patient Education How to access health informa tion online - Detail Indication:BMI 28.0-28.9,adult Start:07-Sep-2019 Instruction Type:Patient Education Patient Instructions Indication:Post-nasal drainage Start:07-Sep-2019 Instruction Type:Provider Instructions for Treatment How to access health informa tion online Indication:Hypertension, benign Start:17-May-2019 Instruction Type:Patient Education How to access health informa tion online - Detail Indication:Hypertension, benign Start:17-May-2019 Instruction Type:Patient Education Patient Instructions Indication:Hypertension, benign Start:17-May-2019 Instruction Type:Provider Instructions for Treatment How to access health informa tion online Indication:Nonsmoker Start:14-Nov-2018 Instruction Type:Patient Education How to access health informa tion online - Detail Indication:Nonsmoker Start:14-Nov-2018 Instruction Type:Patient Education Patient Instructions Indication:Nonsmoker Start:14-Nov-2018 Instruction Type:Provider Instructions for Treatment How to access health informa tion online Indication:Nonsmoker Start:14-Sep-2018 Instruction Type:Patient Education How to access health informa tion online - Detail Indication:Nonsmoker Start:14-Sep-2018 Instruction Type:Patient Education Patient Instructions Indication:Nonsmoker Start:14-Sep-2018 Instruction Type:Provider Instructions for Treatment How to access health informa tion online Indication:Nonsmoker Start:04-Jul-2018 Instruction Type:Patient Education Patient Instructions Indication:Nonsmoker Start:04-Jul-2018 Instruction Type:Provider Instructions for Treatment How to access health informa tion online Indication:BMI 27.0-27.9,adult Start:14-Jun-2018 Instruction Type:Patient Education How to access health informa tion online - Detail Indication:BMI 27.0-27.9,adult Start:14-Jun-2018 Instruction Type:Patient Education Patient Instructions Indication:BMI 27.0-27.9,adult Start:14-Jun-2018 Instruction Type:Provider Instructions for Treatment How to access health informa tion online Indication:Need for prophylactic vaccination and inoculation against influenza (Renamed from Need for immunization against influenza) Start:19-May-2018 Instruction Type:Patient Education How to access health informa tion online - Detail Indication:Need for prophylactic vaccination and inoculation against influenza (Renamed from Need for immunization against influenza) Start:19-May-2018 Instruction Type:Patient Education Patient Instructions Indication:Need for prophylactic vaccination and inoculation against influenza (Renamed from Need for immunization against influenza) Start:19-May-2018 Instruction Type:Provider Instructions for Treatment How to access health informa tion online Indication:Nonsmoker Start:16-Nov-2017 Instruction Type:Patient Education How to access health informa tion online - Detail Indication:Nonsmoker Start:16-Nov-2017 Instruction Type:Patient Education Patient Instructions Indication:Nonsmoker Start:16-Nov-2017 Instruction Type:Provider Instructions for Treatment How to access health informa tion online Indication:Nonsmoker Start:10-Nov-2017 Instruction Type:Patient Education How to access health informa tion online - Detail Indication:Nonsmoker Start:10-Nov-2017 Instruction Type:Patient Education Patient Instructions Indication:Nonsmoker Start:10-Nov-2017 Instruction Type:Provider Instructions for Treatment How to access health informa tion online Indication:Nonsmoker Start:02-Nov-2016 Instruction Type:Patient Education How to access health informa tion online - Detail Indication:Nonsmoker Start:02-Nov-2016 Instruction Type:Patient Education Patient Instructions Indication:Nonsmoker Start:02-Nov-2016 Instruction Type:Provider Instructions for Treatment How to access health informa tion online - Detail Indication:Bronchitis Start:08-Sep-2016 Instruction Type:Patient Education Patient Instructions Indication:Bronchitis Start:08-Sep-2016 Instruction Type:Provider Instructions for Treatment How to access health informa tion online Indication:Encounter for screening mammogram for breast cancer (Renamed from Encounter for screening mammogram for malignant neoplasm of breast) Start:19-May-2016 Instruction Type:Patient Education How to access health informa tion online - Detail Indication:Encounter for screening mammogram for breast cancer (Renamed from Encounter for screening mammogram for malignant neoplasm of breast) Start:19-May-2016 Instruction Type:Patient Education Patient Instructions Indication:Encounter for screening mammogram for breast cancer (Renamed from Encounter for screening mammogram for malignant neoplasm of breast) Start:19-May-2016 Instruction Type:Provider Instructions for Treatment Patient Instructions Indication:Acute bronchitis due to other specified organisms Start:07-May-2016 Instruction Type:Provider Instructions for Treatment How to access health informa tion online Indication:Cough Start:08-Apr-2016 Instruction Type:Patient Education How to access health informa tion online - Detail Indication:Cough Start:08-Apr-2016 Instruction Type:Patient Education Patient Instructions Indication:Cough Start:08-Apr-2016 Instruction Type:Provider Instructions for Treatment How to access health informa tion online Indication:Cough Start:31-Mar-2016 Instruction Type:Patient Education How to access health informa tion online - Detail Indication:Cough Start:31-Mar-2016 Instruction Type:Patient Education Patient Instructions Indication:Cough Start:31-Mar-2016 Instruction Type:Provider Instructions for Treatment How to access health informa tion online - Detail Indication:Cough Start:09-Dec-2015 Instruction Type:Patient Education How to access health informa tion online - Detail Indication:Cough Start:09-Dec-2015 Instruction Type:Patient Education How to access health informa tion online - Detail Indication:Cough Start:09-Dec-2015 Instruction Type:Patient Education Patient Instructions Indication:Cough Start:09-Dec-2015 Instruction Type:Provider Instructions for Treatment How to access health informa tion online Indication:Rash/skin eruption Start:23-Apr-2015 Instruction Type:Patient Education How to access health informa tion online - Detail Indication:Rash/skin eruption Start:23-Apr-2015 Instruction Type:Patient Education Patient Instructions Indication:Rash/skin eruption Start:23-Apr-2015 Instruction Type:Provider Instructions for Treatment Patient Instructions Indication:Rash/skin eruption Start:18-Mar-2015 Instruction Type:Provider Instructions for Treatment Patient Instructions Indication:Acute bronchitis Start:29-Oct-2014 Instruction Type:Provider Instructions for Treatment How to access health informa tion online Indication:GERD (gastroesophageal reflux disease) Start:10-Jul-2014 Instruction Type:Patient Education How to access health informa tion online - Detail Indication:GERD (gastroesophageal reflux disease) Start:10-Jul-2014 Instruction Type:Patient Education Patient Instructions Indication:GERD (gastroesophageal reflux disease) Start:10-Jul-2014 Instruction Type:Provider Instructions for Treatment Patient Instructions Indication:GERD (gastroesophageal reflux disease) Start:12-May-2013 Instruction Type:Provider Instructions for Treatment [facility]; [facility] Work Phone: Instructions* Name Dates Details Patient Instructions Indication:BMI 28.0-28.9,adult Start:13-Jan-2023 Instruction Type:Provider Instructions for Treatment How to Access Health Informa tion Online using Patient Portal and [employer]rd [employer] Apps Indication:BMI 28.0-28.9,adult Start:13-Jan-2023 Instruction Type:Patient Education Patient Instructions Indication:BMI 28.0-28.9,adult Start:07-Oct-2022 Instruction Type:Provider Instructions for Treatment How to Access Health Informa tion Online using Patient Portal and [employer]rd [employer] Apps Indication:BMI 28.0-28.9,adult Start:07-Oct-2022 Instruction Type:Patient Education Patient Instructions Indication:BMI 28.0-28.9,adult Start:15-Jul-2022 Instruction Type:Provider Instructions for Treatment How to Access Health Informa tion Online using Patient Portal and [employer]rd [employer] Apps Indication:BMI 28.0-28.9,adult Start:15-Jul-2022 Instruction Type:Patient Education Patient Instructions Indication:Nonsmoker Start:06-Jul-2022 Instruction Type:Provider Instructions for Treatment How to Access Health Informa tion Online using Patient Portal and [employer]rd [employer] Apps Indication:Nonsmoker Start:06-Jul-2022 Instruction Type:Patient Education Patient Instructions Indication:BMI 26.0-26.9,adult Start:05-May-2022 Instruction Type:Provider Instructions for Treatment How to Access Health Informa tion Online using Patient Portal and [employer]rd [employer] Apps Indication:BMI 26.0-26.9,adult Start:05-May-2022 Instruction Type:Patient Education Patient Instructions Indication:Black tarry stools Start:13-Mar-2022 Instruction Type:Provider Instructions for Treatment Patient Instructions Indication:Nonsmoker Start:01-Jan-2022 Instruction Type:Provider Instructions for Treatment How to Access Health Informa tion Online using Patient Portal and [employer]rd [employer] Apps Indication:Nonsmoker Start:01-Jan-2022 Instruction Type:Patient Education Patient Instructions Indication:BMI 28.0-28.9,adult Start:18-Jun-2021 Instruction Type:Provider Instructions for Treatment How to Access Health Informa tion Online using Patient Portal and [employer]rd [employer] Apps Indication:BMI 28.0-28.9,adult Start:18-Jun-2021 Instruction Type:Patient Education How to Access Health Informa tion Online using Patient Portal and [employer]rd [employer] Apps Indication:Nonsmoker Start:23-Dec-2020 Instruction Type:Patient Education Patient Instructions Indication:Nonsmoker Start:23-Dec-2020 Instruction Type:Provider Instructions for Treatment How to Access Health Informa tion Online using Patient Portal and [employer]rd [employer] Apps Indication:Nonsmoker Start:11-Dec-2020 Instruction Type:Patient Education Patient Instructions Indication:Nonsmoker Start:11-Dec-2020 Instruction Type:Provider Instructions for Treatment How to access health informa tion online Indication:BMI 28.0-28.9,adult Start:18-Jul-2020 Instruction Type:Patient Education How to access health informa tion online - Detail Indication:BMI 28.0-28.9,adult Start:18-Jul-2020 Instruction Type:Patient Education Patient Instructions Indication:BMI 28.0-28.9,adult Start:18-Jul-2020 Instruction Type:Provider Instructions for Treatment How to access health informa tion online Indication:Nonsmoker Start:11-Jul-2020 Instruction Type:Patient Education How to access health informa tion online - Detail Indication:Nonsmoker Start:11-Jul-2020 Instruction Type:Patient Education Patient Instructions Indication:Nonsmoker Start:11-Jul-2020 Instruction Type:Provider Instructions for Treatment How to access health informa tion online Indication:BMI 27.0-27.9,adult Start:12-Jun-2020 Instruction Type:Patient Education How to access health informa tion online - Detail Indication:BMI 27.0-27.9,adult Start:12-Jun-2020 Instruction Type:Patient Education Patient Instructions Indication:BMI 27.0-27.9,adult Start:12-Jun-2020 Instruction Type:Provider Instructions for Treatment How to access health informa tion online Indication:BMI 27.0-27.9,adult Start:29-Apr-2020 Instruction Type:Patient Education How to access health informa tion online - Detail Indication:BMI 27.0-27.9,adult Start:29-Apr-2020 Instruction Type:Patient Education Patient Instructions Indication:BMI 27.0-27.9,adult Start:29-Apr-2020 Instruction Type:Provider Instructions for Treatment How to access health informa tion online Indication:Nonsmoker Start:21-Dec-2019 Instruction Type:Patient Education How to access health informa tion online - Detail Indication:Nonsmoker Start:21-Dec-2019 Instruction Type:Patient Education Patient Instructions Indication:Nonsmoker Start:21-Dec-2019 Instruction Type:Provider Instructions for Treatment How to access health informa tion online Indication:Nonsmoker Start:07-Dec-2019 Instruction Type:Patient Education How to access health informa tion online - Detail Indication:Nonsmoker Start:07-Dec-2019 Instruction Type:Patient Education Patient Instructions Indication:Nonsmoker Start:07-Dec-2019 Instruction Type:Provider Instructions for Treatment How to access health informa tion online Indication:BMI 27.0-27.9,adult Start:16-Nov-2019 Instruction Type:Patient Education How to access health informa tion online - Detail Indication:BMI 27.0-27.9,adult Start:16-Nov-2019 Instruction Type:Patient Education Patient Instructions Indication:BMI 27.0-27.9,adult Start:16-Nov-2019 Instruction Type:Provider Instructions for Treatment How to access health informa tion online Indication:BMI 28.0-28.9,adult Start:07-Sep-2019 Instruction Type:Patient Education How to access health informa tion online - Detail Indication:BMI 28.0-28.9,adult Start:07-Sep-2019 Instruction Type:Patient Education Patient Instructions Indication:Post-nasal drainage Start:07-Sep-2019 Instruction Type:Provider Instructions for Treatment How to access health informa tion online Indication:Hypertension, benign Start:17-May-2019 Instruction Type:Patient Education How to access health informa tion online - Detail Indication:Hypertension, benign Start:17-May-2019 Instruction Type:Patient Education Patient Instructions Indication:Hypertension, benign Start:17-May-2019 Instruction Type:Provider Instructions for Treatment How to access health informa tion online Indication:Nonsmoker Start:14-Nov-2018 Instruction Type:Patient Education How to access health informa tion online - Detail Indication:Nonsmoker Start:14-Nov-2018 Instruction Type:Patient Education Patient Instructions Indication:Nonsmoker Start:14-Nov-2018 Instruction Type:Provider Instructions for Treatment How to access health informa tion online Indication:Nonsmoker Start:14-Sep-2018 Instruction Type:Patient Education How to access health informa tion online - Detail Indication:Nonsmoker Start:14-Sep-2018 Instruction Type:Patient Education Patient Instructions Indication:Nonsmoker Start:14-Sep-2018 Instruction Type:Provider Instructions for Treatment How to access health informa tion online Indication:Nonsmoker Start:04-Jul-2018 Instruction Type:Patient Education Patient Instructions Indication:Nonsmoker Start:04-Jul-2018 Instruction Type:Provider Instructions for Treatment How to access health informa tion online Indication:BMI 27.0-27.9,adult Start:14-Jun-2018 Instruction Type:Patient Education How to access health informa tion online - Detail Indication:BMI 27.0-27.9,adult Start:14-Jun-2018 Instruction Type:Patient Education Patient Instructions Indication:BMI 27.0-27.9,adult Start:14-Jun-2018 Instruction Type:Provider Instructions for Treatment How to access health informa tion online Indication:Need for prophylactic vaccination and inoculation against influenza (Renamed from Need for immunization against influenza) Start:19-May-2018 Instruction Type:Patient Education How to access health informa tion online - Detail Indication:Need for prophylactic vaccination and inoculation against influenza (Renamed from Need for immunization against influenza) Start:19-May-2018 Instruction Type:Patient Education Patient Instructions Indication:Need for prophylactic vaccination and inoculation against influenza (Renamed from Need for immunization against influenza) Start:19-May-2018 Instruction Type:Provider Instructions for Treatment How to access health informa tion online Indication:Nonsmoker Start:16-Nov-2017 Instruction Type:Patient Education How to access health informa tion online - Detail Indication:Nonsmoker Start:16-Nov-2017 Instruction Type:Patient Education Patient Instructions Indication:Nonsmoker Start:16-Nov-2017 Instruction Type:Provider Instructions for Treatment How to access health informa tion online Indication:Nonsmoker Start:10-Nov-2017 Instruction Type:Patient Education How to access health informa tion online - Detail Indication:Nonsmoker Start:10-Nov-2017 Instruction Type:Patient Education Patient Instructions Indication:Nonsmoker Start:10-Nov-2017 Instruction Type:Provider Instructions for Treatment How to access health informa tion online Indication:Nonsmoker Start:02-Nov-2016 Instruction Type:Patient Education How to access health informa tion online - Detail Indication:Nonsmoker Start:02-Nov-2016 Instruction Type:Patient Education Patient Instructions Indication:Nonsmoker Start:02-Nov-2016 Instruction Type:Provider Instructions for Treatment How to access health informa tion online - Detail Indication:Bronchitis Start:08-Sep-2016 Instruction Type:Patient Education Patient Instructions Indication:Bronchitis Start:08-Sep-2016 Instruction Type:Provider Instructions for Treatment How to access health informa tion online Indication:Encounter for screening mammogram for breast cancer (Renamed from Encounter for screening mammogram for malignant neoplasm of breast) Start:19-May-2016 Instruction Type:Patient Education How to access health informa tion online - Detail Indication:Encounter for screening mammogram for breast cancer (Renamed from Encounter for screening mammogram for malignant neoplasm of breast) Start:19-May-2016 Instruction Type:Patient Education Patient Instructions Indication:Encounter for screening mammogram for breast cancer (Renamed from Encounter for screening mammogram for malignant neoplasm of breast) Start:19-May-2016 Instruction Type:Provider Instructions for Treatment Patient Instructions Indication:Acute bronchitis due to other specified organisms Start:07-May-2016 Instruction Type:Provider Instructions for Treatment How to access health informa tion online Indication:Cough Start:08-Apr-2016 Instruction Type:Patient Education How to access health informa tion online - Detail Indication:Cough Start:08-Apr-2016 Instruction Type:Patient Education Patient Instructions Indication:Cough Start:08-Apr-2016 Instruction Type:Provider Instructions for Treatment How to access health informa tion online Indication:Cough Start:31-Mar-2016 Instruction Type:Patient Education How to access health informa tion online - Detail Indication:Cough Start:31-Mar-2016 Instruction Type:Patient Education Patient Instructions Indication:Cough Start:31-Mar-2016 Instruction Type:Provider Instructions for Treatment How to access health informa tion online - Detail Indication:Cough Start:09-Dec-2015 Instruction Type:Patient Education How to access health informa tion online - Detail Indication:Cough Start:09-Dec-2015 Instruction Type:Patient Education How to access health informa tion online - Detail Indication:Cough Start:09-Dec-2015 Instruction Type:Patient Education Patient Instructions Indication:Cough Start:09-Dec-2015 Instruction Type:Provider Instructions for Treatment How to access health informa tion online Indication:Rash/skin eruption Start:23-Apr-2015 Instruction Type:Patient Education How to access health informa tion online - Detail Indication:Rash/skin eruption Start:23-Apr-2015 Instruction Type:Patient Education Patient Instructions Indication:Rash/skin eruption Start:23-Apr-2015 Instruction Type:Provider Instructions for Treatment Patient Instructions Indication:Rash/skin eruption Start:18-Mar-2015 Instruction Type:Provider Instructions for Treatment Patient Instructions Indication:Acute bronchitis Start:29-Oct-2014 Instruction Type:Provider Instructions for Treatment How to access health informa tion online Indication:GERD (gastroesophageal reflux disease) Start:10-Jul-2014 Instruction Type:Patient Education How to access health informa tion online - Detail Indication:GERD (gastroesophageal reflux disease) Start:10-Jul-2014 Instruction Type:Patient Education Patient Instructions Indication:GERD (gastroesophageal reflux disease) Start:10-Jul-2014 Instruction Type:Provider Instructions for Treatment Patient Instructions Indication:GERD (gastroesophageal reflux disease) Start:12-May-2013 Instruction Type:Provider Instructions for Treatment [facility] Work Phone: Instructions* Name Dates Details Patient Instructions Indication:BMI 28.0-28.9,adult Start:07-Oct-2022 Instruction Type:Provider Instructions for Treatment How to Access Health Informa tion Online using Patient Portal and [employer]rd [employer] Apps Indication:BMI 28.0-28.9,adult Start:07-Oct-2022 Instruction Type:Patient Education Patient Instructions Indication:BMI 28.0-28.9,adult Start:15-Jul-2022 Instruction Type:Provider Instructions for Treatment How to Access Health Informa tion Online using Patient Portal and 3rd [employer] Apps Indication:BMI 28.0-28.9,adult Start:15-Jul-2022 Instruction Type:Patient Education Patient Instructions Indication:Nonsmoker Start:06-Jul-2022 Instruction Type:Provider Instructions for Treatment How to Access Health Informa tion Online using Patient Portal and [employer]rd [employer] Apps Indication:Nonsmoker Start:06-Jul-2022 Instruction Type:Patient Education Patient Instructions Indication:BMI 26.0-26.9,adult Start:05-May-2022 Instruction Type:Provider Instructions for Treatment How to Access Health Informa tion Online using Patient Portal and [employer]rd [employer] Apps Indication:BMI 26.0-26.9,adult Start:05-May-2022 Instruction Type:Patient Education Patient Instructions Indication:Black tarry stools Start:13-Mar-2022 Instruction Type:Provider Instructions for Treatment Patient Instructions Indication:Nonsmoker Start:01-Jan-2022 Instruction Type:Provider Instructions for Treatment How to Access Health Informa tion Online using Patient Portal and [employer]rd [employer] Apps Indication:Nonsmoker Start:01-Jan-2022 Instruction Type:Patient Education Patient Instructions Indication:BMI 28.0-28.9,adult Start:18-Jun-2021 Instruction Type:Provider Instructions for Treatment How to Access Health Informa tion Online using Patient Portal and [employer]rd [employer] Apps Indication:BMI 28.0-28.9,adult Start:18-Jun-2021 Instruction Type:Patient Education How to Access Health Informa tion Online using Patient Portal and [employer]rd [employer] Apps Indication:Nonsmoker Start:23-Dec-2020 Instruction Type:Patient Education Patient Instructions Indication:Nonsmoker Start:23-Dec-2020 Instruction Type:Provider Instructions for Treatment How to Access Health Informa tion Online using Patient Portal and [employer]rd [employer] Apps Indication:Nonsmoker Start:11-Dec-2020 Instruction Type:Patient Education Patient Instructions Indication:Nonsmoker Start:11-Dec-2020 Instruction Type:Provider Instructions for Treatment How to access health informa tion online Indication:BMI 28.0-28.9,adult Start:18-Jul-2020 Instruction Type:Patient Education How to access health informa tion online - Detail Indication:BMI 28.0-28.9,adult Start:18-Jul-2020 Instruction Type:Patient Education Patient Instructions Indication:BMI 28.0-28.9,adult Start:18-Jul-2020 Instruction Type:Provider Instructions for Treatment How to access health informa tion online Indication:Nonsmoker Start:11-Jul-2020 Instruction Type:Patient Education How to access health informa tion online - Detail Indication:Nonsmoker Start:11-Jul-2020 Instruction Type:Patient Education Patient Instructions Indication:Nonsmoker Start:11-Jul-2020 Instruction Type:Provider Instructions for Treatment How to access health informa tion online Indication:BMI 27.0-27.9,adult Start:12-Jun-2020 Instruction Type:Patient Education How to access health informa tion online - Detail Indication:BMI 27.0-27.9,adult Start:12-Jun-2020 Instruction Type:Patient Education Patient Instructions Indication:BMI 27.0-27.9,adult Start:12-Jun-2020 Instruction Type:Provider Instructions for Treatment How to access health informa tion online Indication:BMI 27.0-27.9,adult Start:29-Apr-2020 Instruction Type:Patient Education How to access health informa tion online - Detail Indication:BMI 27.0-27.9,adult Start:29-Apr-2020 Instruction Type:Patient Education Patient Instructions Indication:BMI 27.0-27.9,adult Start:29-Apr-2020 Instruction Type:Provider Instructions for Treatment How to access health informa tion online Indication:Nonsmoker Start:21-Dec-2019 Instruction Type:Patient Education How to access health informa tion online - Detail Indication:Nonsmoker Start:21-Dec-2019 Instruction Type:Patient Education Patient Instructions Indication:Nonsmoker Start:21-Dec-2019 Instruction Type:Provider Instructions for Treatment How to access health informa tion online Indication:Nonsmoker Start:07-Dec-2019 Instruction Type:Patient Education How to access health informa tion online - Detail Indication:Nonsmoker Start:07-Dec-2019 Instruction Type:Patient Education Patient Instructions Indication:Nonsmoker Start:07-Dec-2019 Instruction Type:Provider Instructions for Treatment How to access health informa tion online Indication:BMI 27.0-27.9,adult Start:16-Nov-2019 Instruction Type:Patient Education How to access health informa tion online - Detail Indication:BMI 27.0-27.9,adult Start:16-Nov-2019 Instruction Type:Patient Education Patient Instructions Indication:BMI 27.0-27.9,adult Start:16-Nov-2019 Instruction Type:Provider Instructions for Treatment How to access health informa tion online Indication:BMI 28.0-28.9,adult Start:07-Sep-2019 Instruction Type:Patient Education How to access health informa tion online - Detail Indication:BMI 28.0-28.9,adult Start:07-Sep-2019 Instruction Type:Patient Education Patient Instructions Indication:Post-nasal drainage Start:07-Sep-2019 Instruction Type:Provider Instructions for Treatment How to access health informa tion online Indication:Hypertension, benign Start:17-May-2019 Instruction Type:Patient Education How to access health informa tion online - Detail Indication:Hypertension, benign Start:17-May-2019 Instruction Type:Patient Education Patient Instructions Indication:Hypertension, benign Start:17-May-2019 Instruction Type:Provider Instructions for Treatment How to access health informa tion online Indication:Nonsmoker Start:14-Nov-2018 Instruction Type:Patient Education How to access health informa tion online - Detail Indication:Nonsmoker Start:14-Nov-2018 Instruction Type:Patient Education Patient Instructions Indication:Nonsmoker Start:14-Nov-2018 Instruction Type:Provider Instructions for Treatment How to access health informa tion online Indication:Nonsmoker Start:14-Sep-2018 Instruction Type:Patient Education How to access health informa tion online - Detail Indication:Nonsmoker Start:14-Sep-2018 Instruction Type:Patient Education Patient Instructions Indication:Nonsmoker Start:14-Sep-2018 Instruction Type:Provider Instructions for Treatment How to access health informa tion online Indication:Nonsmoker Start:04-Jul-2018 Instruction Type:Patient Education Patient Instructions Indication:Nonsmoker Start:04-Jul-2018 Instruction Type:Provider Instructions for Treatment How to access health informa tion online Indication:BMI 27.0-27.9,adult Start:14-Jun-2018 Instruction Type:Patient Education How to access health informa tion online - Detail Indication:BMI 27.0-27.9,adult Start:14-Jun-2018 Instruction Type:Patient Education Patient Instructions Indication:BMI 27.0-27.9,adult Start:14-Jun-2018 Instruction Type:Provider Instructions for Treatment How to access health informa tion online Indication:Need for prophylactic vaccination and inoculation against influenza (Renamed from Need for immunization against influenza) Start:19-May-2018 Instruction Type:Patient Education How to access health informa tion online - Detail Indication:Need for prophylactic vaccination and inoculation against influenza (Renamed from Need for immunization against influenza) Start:19-May-2018 Instruction Type:Patient Education Patient Instructions Indication:Need for prophylactic vaccination and inoculation against influenza (Renamed from Need for immunization against influenza) Start:19-May-2018 Instruction Type:Provider Instructions for Treatment How to access health informa tion online Indication:Nonsmoker Start:16-Nov-2017 Instruction Type:Patient Education How to access health informa tion online - Detail Indication:Nonsmoker Start:16-Nov-2017 Instruction Type:Patient Education Patient Instructions Indication:Nonsmoker Start:16-Nov-2017 Instruction Type:Provider Instructions for Treatment How to access health informa tion online Indication:Nonsmoker Start:10-Nov-2017 Instruction Type:Patient Education How to access health informa tion online - Detail Indication:Nonsmoker Start:10-Nov-2017 Instruction Type:Patient Education Patient Instructions Indication:Nonsmoker Start:10-Nov-2017 Instruction Type:Provider Instructions for Treatment How to access health informa tion online Indication:Nonsmoker Start:02-Nov-2016 Instruction Type:Patient Education How to access health informa tion online - Detail Indication:Nonsmoker Start:02-Nov-2016 Instruction Type:Patient Education Patient Instructions Indication:Nonsmoker Start:02-Nov-2016 Instruction Type:Provider Instructions for Treatment How to access health informa tion online - Detail Indication:Bronchitis Start:08-Sep-2016 Instruction Type:Patient Education Patient Instructions Indication:Bronchitis Start:08-Sep-2016 Instruction Type:Provider Instructions for Treatment How to access health informa tion online Indication:Encounter for screening mammogram for breast cancer (Renamed from Encounter for screening mammogram for malignant neoplasm of breast) Start:19-May-2016 Instruction Type:Patient Education How to access health informa tion online - Detail Indication:Encounter for screening mammogram for breast cancer (Renamed from Encounter for screening mammogram for malignant neoplasm of breast) Start:19-May-2016 Instruction Type:Patient Education Patient Instructions Indication:Encounter for screening mammogram for breast cancer (Renamed from Encounter for screening mammogram for malignant neoplasm of breast) Start:19-May-2016 Instruction Type:Provider Instructions for Treatment Patient Instructions Indication:Acute bronchitis due to other specified organisms Start:07-May-2016 Instruction Type:Provider Instructions for Treatment How to access health informa tion online Indication:Cough Start:08-Apr-2016 Instruction Type:Patient Education How to access health informa tion online - Detail Indication:Cough Start:08-Apr-2016 Instruction Type:Patient Education Patient Instructions Indication:Cough Start:08-Apr-2016 Instruction Type:Provider Instructions for Treatment How to access health informa tion online Indication:Cough Start:31-Mar-2016 Instruction Type:Patient Education How to access health informa tion online - Detail Indication:Cough Start:31-Mar-2016 Instruction Type:Patient Education Patient Instructions Indication:Cough Start:31-Mar-2016 Instruction Type:Provider Instructions for Treatment How to access health informa tion online - Detail Indication:Cough Start:09-Dec-2015 Instruction Type:Patient Education How to access health informa tion online - Detail Indication:Cough Start:09-Dec-2015 Instruction Type:Patient Education How to access health informa tion online - Detail Indication:Cough Start:09-Dec-2015 Instruction Type:Patient Education Patient Instructions Indication:Cough Start:09-Dec-2015 Instruction Type:Provider Instructions for Treatment How to access health informa tion online Indication:Rash/skin eruption Start:23-Apr-2015 Instruction Type:Patient Education How to access health informa tion online - Detail Indication:Rash/skin eruption Start:23-Apr-2015 Instruction Type:Patient Education Patient Instructions Indication:Rash/skin eruption Start:23-Apr-2015 Instruction Type:Provider Instructions for Treatment Patient Instructions Indication:Rash/skin eruption Start:18-Mar-2015 Instruction Type:Provider Instructions for Treatment Patient Instructions Indication:Acute bronchitis Start:29-Oct-2014 Instruction Type:Provider Instructions for Treatment How to access health informa tion online Indication:GERD (gastroesophageal reflux disease) Start:10-Jul-2014 Instruction Type:Patient Education How to access health informa tion online - Detail Indication:GERD (gastroesophageal reflux disease) Start:10-Jul-2014 Instruction Type:Patient Education Patient Instructions Indication:GERD (gastroesophageal reflux disease) Start:10-Jul-2014 Instruction Type:Provider Instructions for Treatment Patient Instructions Indication:GERD (gastroesophageal reflux disease) Start:12-May-2013 Instruction Type:Provider Instructions for Treatment [facility] Work Phone: reason for referral (narrative)No reason for referral information available[facility] Work [facility]: Family History No Family History Records FoundUnknown Family Member Name Dates Details First Degree Relatives Comments:[place], Heart/Lung di sease, HBP Status:Active Unknown Family Member Name Dates Details First Degree Relatives Comments:[place], Heart/Lung di sease, HBP Status:Active Unknown Family Member Name Dates Details First Degree Relatives Comments:[place], Heart/Lung di sease, HBP Status:Active Unknown Family Member Name Dates Details First Degree Relatives Comments:[place], Heart/Lung di sease, HBP Status:Active Unknown Family Member Name Dates Details First Degree Relatives Comments:[place], Heart/Lung di sease, HBP Status:Active Unknown Family Member Name Dates Details First Degree Relatives Comments:[place], Heart/Lung di sease, HBP Status:Active Unknown Family Member Name Dates Details First Degree Relatives Comments:[place], Heart/Lung di sease, HBP Status:Active Unknown Family Member Name Dates Details First Degree Relatives Comments:[place], Heart/Lung di sease, HBP Status:Active Unknown Family Member Name Dates Details First Degree Relatives Comments:[place], Heart/Lung di sease, HBP Status:Active Unknown Family Member Name Dates Details First Degree Relatives Comments:[place], Heart/Lung di sease, HBP Status:Active Unknown Family Member Name Dates Details First Degree Relatives Comments:ET[place], Heart/Lung di sease, HBP Status:Active Unknown Family Member Name Dates Details First Degree Relatives Comments:[place], Heart/Lung di sease, HBP Status:Active Unknown Family Member Name Dates Details First Degree Relatives Comments:[place], Heart/Lung di sease, HBP Status:Active Unknown Family Member Name Dates Details First Degree Relatives Comments:[place], Heart/Lung di sease, HBP Status:Active Unknown Family Member Name Dates Details First Degree Relatives Comments:[place], Heart/Lung di sease, HBP Status:Active Unknown Family Member Name Dates Details First Degree Relatives Comments:[place], Heart/Lung di sease, HBP Status:Active Unknown Family Member Name Dates Details First Degree Relatives Comments:[place], Heart/Lung di sease, HBP Status:Active Unknown Family Member Name Dates Details First Degree Relatives Comments:[place], Heart/Lung di sease, HBP Status:Active Unknown Family Member Name Dates Details First Degree Relatives Comments:[place], Heart/Lung di sease, HBP Status:Active Unknown Family Member Name Dates Details First Degree Relatives Comments:[place], Heart/Lung di sease, HBP Status:Active Unknown Family Member Name Dates Details First Degree Relatives Comments:[place], Heart/Lung di sease, HBP Status:Active Relationship Condition Age at Onset Recorded Date/T radha brother Malignant neoplasm of urinary bladder Unk nown Unknown Family Member Name Dates Details First Degree Relatives Comments:[place], Heart/Lung di sease, HBP Status:Active Unknown Family Member Name Dates Details First Degree Relatives Comments:[place], Heart/Lung di sease, HBP Status:Active Unknown Family Member Name Dates Details First Degree Relatives Comments:[place], Heart/Lung di sease, HBP Status:Active Unknown Family Member Name Dates Details First Degree Relatives Comments:[place], Heart/Lung di sease, HBP Status:Active Unknown Family Member Name Dates Details First Degree Relatives Comments:[place], Heart/Lung di sease, HBP Status:Active Unknown Family Member Name Dates Details First Degree Relatives Comments:[place], Heart/Lung di sease, HBP Status:Active Unknown Family Member Name Dates Details First Degree Relatives Comments:[place], Heart/Lung di sease, HBP Status:Active Unknown Family Member Name Dates Details First Degree Relatives Comments:[place], Heart/Lung di sease, HBP Status:Active Unknown Family Member Name Dates Details First Degree Relatives Comments:[place], Heart/Lung di sease, HBP Status:Active Unknown Family Member Name Dates Details First Degree Relatives Comments:[place], Heart/Lung di sease, HBP Status:Active Unknown Family Member Name Dates Details First Degree Relatives Comments:[place], Heart/Lung di sease, HBP Status:Active Unknown Family Member Name Dates Details First Degree Relatives Comments:[place], Heart/Lung di sease, HBP Status:Active Unknown Family Member Name Dates Details First Degree Relatives Comments:[place], Heart/Lung di sease, HBP Status:Active Unknown Family Member Name Dates Details First Degree Relatives Comments:[place], Heart/Lung di sease, HBP Status:Active Unknown Family Member Name Dates Details First Degree Relatives Comments:[place], Heart/Lung di sease, HBP Status:Active Unknown Family Member Name Dates Details First Degree Relatives Comments:[place], Heart/Lung di sease, HBP Status:Active Unknown Family Member Name Dates Details First Degree Relatives Comments:[place], Heart/Lung di sease, HBP Status:Active Unknown Family Member Name Dates Details First Degree Relatives Comments:[place], Heart/Lung di sease, HBP Status:Active Unknown Family Member Name Dates Details First Degree Relatives Comments:[place], Heart/Lung di sease, HBP Status:Active Unknown Family Member Name Dates Details First Degree Relatives Comments:[place], Heart/Lung di sease, HBP Status:Active Unknown Family Member Name Dates Details First Degree Relatives Comments:[place], Heart/Lung di sease, HBP Status:Active Unknown Family Member Name Dates Details First Degree Relatives Comments:[place], Heart/Lung di sease, HBP Status:Active Unknown Family Member Name Dates Details First Degree Relatives Comments:[place], Heart/Lung di sease, HBP Status:Active Unknown Family Member Name Dates Details First Degree Relatives Comments:[place], Heart/Lung di sease, HBP Status:Active Unknown Family Member Name Dates Details First Degree Relatives Comments:[place], Heart/Lung di sease, HBP Status:Active Unknown Family Member Name Dates Details First Degree Relatives Comments:[place], Heart/Lung di sease, HBP Status:Active Instructions Name Dates Details Nonsmoker : How to access he alth information online Indication:Nonsmoker Nonsmoker : Patient Instruct ions Indication:Nonsmoker BMI 27.0-27.9,adult : How to access health information online Indication:BMI 27.0-27.9,adult BMI 27.0-27.9,adult : How to access health information online - Detail Indication:BMI 27.0-27.9,adult BMI 27.0-27.9,adult : Patien t Instructions Indication:BMI 27.0-27.9,adult Need for prophylactic vaccin ation and inoculation against influenza (Renamed from Need for immunization against influenza) : How to access health information online Indication:Need for prophylactic vaccination and inoculation against influenza (Renamed from Need for immunization against influenza) Need for prophylactic vaccin ation and inoculation against influenza (Renamed from Need for immunization against influenza) : How to access health information online - Detail Indication:Need for prophylactic vaccination and inoculation against influenza (Renamed from Need for immunization against influenza) Need for prophylactic vaccin ation and inoculation against influenza (Renamed from Need for immunization against influenza) : Patient Instructions Indication:Need for prophylactic vaccination and inoculation against influenza (Renamed from Need for immunization against influenza) Nonsmoker : How to access he alth information online - Detail Indication:Nonsmoker Bronchitis : How to access h ealth information online - Detail Indication:Bronchitis Bronchitis : Patient Instruc tions Indication:Bronchitis Encounter for screening mamm ogram for breast cancer (Renamed from Encounter for screening mammogram for malignant neoplasm of breast) : How to access health information online Indication:Encounter for screening mammogram for breast cancer (Renamed from Encounter for screening mammogram for malignant neoplasm of breast) Encounter for screening mamm ogram for breast cancer (Renamed from Encounter for screening mammogram for malignant neoplasm of breast) : How to access health information online - Detail Indication:Encounter for screening mammogram for breast cancer (Renamed from Encounter for screening mammogram for malignant neoplasm of breast) Encounter for screening mamm ogram for breast cancer (Renamed from Encounter for screening mammogram for malignant neoplasm of breast) : Patient Instructions Indication:Encounter for screening mammogram for breast cancer (Renamed from Encounter for screening mammogram for malignant neoplasm of breast) Acute bronchitis due to othe r specified organisms : Patient Instructions Indication:Acute bronchitis due to other specified organisms Cough : How to access health information online Indication:Cough Cough : How to access health information online - Detail Indication:Cough Cough : Patient Instructions Indication:Cough Rash/skin eruption : How to access health information online Indication:Rash/skin eruption Rash/skin eruption : How to access health information online - Detail Indication:Rash/skin eruption Rash/skin eruption : Patient Instructions Indication:Rash/skin eruption Acute bronchitis : Patient I nstructions Indication:Acute bronchitis GERD (gastroesophageal reflu x disease) : How to access health information online Indication:GERD (gastroesophageal reflux disease) GERD (gastroesophageal reflu x disease) : How to access health information online - Detail Indication:GERD (gastroesophageal reflux disease) GERD (gastroesophageal reflu x disease) : Patient Instructions Indication:GERD (gastroesophageal reflux disease) Name Dates Details Nonsmoker : How to access he alth information online Indication:Nonsmoker Nonsmoker : How to access he alth information online - Detail Indication:Nonsmoker Nonsmoker : Patient Instruct ions Indication:Nonsmoker BMI 27.0-27.9,adult : How to access health information online Indication:BMI 27.0-27.9,adult BMI 27.0-27.9,adult : How to access health information online - Detail Indication:BMI 27.0-27.9,adult BMI 27.0-27.9,adult : Patien t Instructions Indication:BMI 27.0-27.9,adult Need for prophylactic vaccin ation and inoculation against influenza (Renamed from Need for immunization against influenza) : How to access health information online Indication:Need for prophylactic vaccination and inoculation against influenza (Renamed from Need for immunization against influenza) Need for prophylactic vaccin ation and inoculation against influenza (Renamed from Need for immunization against influenza) : How to access health information online - Detail Indication:Need for prophylactic vaccination and inoculation against influenza (Renamed from Need for immunization against influenza) Need for prophylactic vaccin ation and inoculation against influenza (Renamed from Need for immunization against influenza) : Patient Instructions Indication:Need for prophylactic vaccination and inoculation against influenza (Renamed from Need for immunization against influenza) Bronchitis : How to access ealth information online - Detail Indication:Bronchitis Bronchitis : Patient Instruc tions Indication:Bronchitis Encounter for screening mamm ogram for breast cancer (Renamed from Encounter for screening mammogram for malignant neoplasm of breast) : How to access health information online Indication:Encounter for screening mammogram for breast cancer (Renamed from Encounter for screening mammogram for malignant neoplasm of breast) Encounter for screening mamm ogram for breast cancer (Renamed from Encounter for screening mammogram for malignant neoplasm of breast) : How to access health information online - Detail Indication:Encounter for screening mammogram for breast cancer (Renamed from Encounter for screening mammogram for malignant neoplasm of breast) Encounter for screening mamm ogram for breast cancer (Renamed from Encounter for screening mammogram for malignant neoplasm of breast) : Patient Instructions Indication:Encounter for screening mammogram for breast cancer (Renamed from Encounter for screening mammogram for malignant neoplasm of breast) Acute bronchitis due to othe r specified organisms : Patient Instructions Indication:Acute bronchitis due to other specified organisms Cough : How to access health information online Indication:Cough Cough : How to access health information online - Detail Indication:Cough Cough : Patient Instructions Indication:Cough Rash/skin eruption : How to access health information online Indication:Rash/skin eruption Rash/skin eruption : How to access health information online - Detail Indication:Rash/skin eruption Rash/skin eruption : Patient Instructions Indication:Rash/skin eruption Acute bronchitis : Patient I nstructions Indication:Acute bronchitis GERD (gastroesophageal reflu x disease) : How to access health information online Indication:GERD (gastroesophageal reflux disease) GERD (gastroesophageal reflu x disease) : How to access health information online - Detail Indication:GERD (gastroesophageal reflux disease) GERD (gastroesophageal reflu x disease) : Patient Instructions Indication:GERD (gastroesophageal reflux disease) Name Dates Details How to access health informa tion online Indication:Hypertension, benign Start:17-May-2019 Instruction Type:Patient Education How to access health informa tion online - Detail Indication:Hypertension, benign Start:17-May-2019 Instruction Type:Patient Education Patient Instructions Indication:Hypertension, benign Start:17-May-2019 Instruction Type:Provider Instructions for Treatment How to access health informa tion online Indication:Nonsmoker Start:14-Nov-2018 Instruction Type:Patient Education How to access health informa tion online - Detail Indication:Nonsmoker Start:14-Nov-2018 Instruction Type:Patient Education Patient Instructions Indication:Nonsmoker Start:14-Nov-2018 Instruction Type:Provider Instructions for Treatment How to access health informa tion online Indication:Nonsmoker Start:14-Sep-2018 Instruction Type:Patient Education How to access health informa tion online - Detail Indication:Nonsmoker Start:14-Sep-2018 Instruction Type:Patient Education Patient Instructions Indication:Nonsmoker Start:14-Sep-2018 Instruction Type:Provider Instructions for Treatment How to access health informa tion online Indication:Nonsmoker Start:04-Jul-2018 Instruction Type:Patient Education Patient Instructions Indication:Nonsmoker Start:04-Jul-2018 Instruction Type:Provider Instructions for Treatment How to access health informa tion online Indication:BMI 27.0-27.9,adult Start:14-Jun-2018 Instruction Type:Patient Education How to access health informa tion online - Detail Indication:BMI 27.0-27.9,adult Start:14-Jun-2018 Instruction Type:Patient Education Patient Instructions Indication:BMI 27.0-27.9,adult Start:14-Jun-2018 Instruction Type:Provider Instructions for Treatment How to access health informa tion online Indication:Need for prophylactic vaccination and inoculation against influenza (Renamed from Need for immunization against influenza) Start:19-May-2018 Instruction Type:Patient Education How to access health informa tion online - Detail Indication:Need for prophylactic vaccination and inoculation against influenza (Renamed from Need for immunization against influenza) Start:19-May-2018 Instruction Type:Patient Education Patient Instructions Indication:Need for prophylactic vaccination and inoculation against influenza (Renamed from Need for immunization against influenza) Start:19-May-2018 Instruction Type:Provider Instructions for Treatment How to access health informa tion online Indication:Nonsmoker Start:16-Nov-2017 Instruction Type:Patient Education How to access health informa tion online - Detail Indication:Nonsmoker Start:16-Nov-2017 Instruction Type:Patient Education Patient Instructions Indication:Nonsmoker Start:16-Nov-2017 Instruction Type:Provider Instructions for Treatment How to access health informa tion online Indication:Nonsmoker Start:10-Nov-2017 Instruction Type:Patient Education How to access health informa tion online - Detail Indication:Nonsmoker Start:10-Nov-2017 Instruction Type:Patient Education Patient Instructions Indication:Nonsmoker Start:10-Nov-2017 Instruction Type:Provider Instructions for Treatment How to access health informa tion online Indication:Nonsmoker Start:02-Nov-2016 Instruction Type:Patient Education How to access health informa tion online - Detail Indication:Nonsmoker Start:02-Nov-2016 Instruction Type:Patient Education Patient Instructions Indication:Nonsmoker Start:02-Nov-2016 Instruction Type:Provider Instructions for Treatment How to access health informa tion online - Detail Indication:Bronchitis Start:08-Sep-2016 Instruction Type:Patient Education Patient Instructions Indication:Bronchitis Start:08-Sep-2016 Instruction Type:Provider Instructions for Treatment How to access health informa tion online Indication:Encounter for screening mammogram for breast cancer (Renamed from Encounter for screening mammogram for malignant neoplasm of breast) Start:19-May-2016 Instruction Type:Patient Education How to access health informa tion online - Detail Indication:Encounter for screening mammogram for breast cancer (Renamed from Encounter for screening mammogram for malignant neoplasm of breast) Start:19-May-2016 Instruction Type:Patient Education Patient Instructions Indication:Encounter for screening mammogram for breast cancer (Renamed from Encounter for screening mammogram for malignant neoplasm of breast) Start:19-May-2016 Instruction Type:Provider Instructions for Treatment Patient Instructions Indication:Acute bronchitis due to other specified organisms Start:07-May-2016 Instruction Type:Provider Instructions for Treatment How to access health informa tion online Indication:Cough Start:08-Apr-2016 Instruction Type:Patient Education How to access health informa tion online - Detail Indication:Cough Start:08-Apr-2016 Instruction Type:Patient Education Patient Instructions Indication:Cough Start:08-Apr-2016 Instruction Type:Provider Instructions for Treatment How to access health informa tion online Indication:Cough Start:31-Mar-2016 Instruction Type:Patient Education How to access health informa tion online - Detail Indication:Cough Start:31-Mar-2016 Instruction Type:Patient Education Patient Instructions Indication:Cough Start:31-Mar-2016 Instruction Type:Provider Instructions for Treatment How to access health informa tion online - Detail Indication:Cough Start:09-Dec-2015 Instruction Type:Patient Education Patient Instructions Indication:Cough Start:09-Dec-2015 Instruction Type:Provider Instructions for Treatment How to access health informa tion online Indication:Rash/skin eruption Start:23-Apr-2015 Instruction Type:Patient Education How to access health informa tion online - Detail Indication:Rash/skin eruption Start:23-Apr-2015 Instruction Type:Patient Education Patient Instructions Indication:Rash/skin eruption Start:23-Apr-2015 Instruction Type:Provider Instructions for Treatment Patient Instructions Indication:Rash/skin eruption Start:18-Mar-2015 Instruction Type:Provider Instructions for Treatment Patient Instructions Indication:Acute bronchitis Start:29-Oct-2014 Instruction Type:Provider Instructions for Treatment How to access health informa tion online Indication:GERD (gastroesophageal reflux disease) Start:10-Jul-2014 Instruction Type:Patient Education How to access health informa tion online - Detail Indication:GERD (gastroesophageal reflux disease) Start:10-Jul-2014 Instruction Type:Patient Education Patient Instructions Indication:GERD (gastroesophageal reflux disease) Start:10-Jul-2014 Instruction Type:Provider Instructions for Treatment Patient Instructions Indication:GERD (gastroesophageal reflux disease) Start:12-May-2013 Instruction Type:Provider Instructions for Treatment Name Dates Details How to access health informa tion online Indication:BMI 27.0-27.9,adult Start:29-Apr-2020 Instruction Type:Patient Education How to access health informa tion online - Detail Indication:BMI 27.0-27.9,adult Start:29-Apr-2020 Instruction Type:Patient Education Patient Instructions Indication:BMI 27.0-27.9,adult Start:29-Apr-2020 Instruction Type:Provider Instructions for Treatment How to access health informa tion online Indication:Nonsmoker Start:21-Dec-2019 Instruction Type:Patient Education How to access health informa tion online - Detail Indication:Nonsmoker Start:21-Dec-2019 Instruction Type:Patient Education Patient Instructions Indication:Nonsmoker Start:21-Dec-2019 Instruction Type:Provider Instructions for Treatment How to access health informa tion online Indication:Nonsmoker Start:07-Dec-2019 Instruction Type:Patient Education How to access health informa tion online - Detail Indication:Nonsmoker Start:07-Dec-2019 Instruction Type:Patient Education Patient Instructions Indication:Nonsmoker Start:07-Dec-2019 Instruction Type:Provider Instructions for Treatment How to access health informa tion online Indication:BMI 27.0-27.9,adult Start:16-Nov-2019 Instruction Type:Patient Education How to access health informa tion online - Detail Indication:BMI 27.0-27.9,adult Start:16-Nov-2019 Instruction Type:Patient Education Patient Instructions Indication:BMI 27.0-27.9,adult Start:16-Nov-2019 Instruction Type:Provider Instructions for Treatment How to access health informa tion online Indication:BMI 28.0-28.9,adult Start:07-Sep-2019 Instruction Type:Patient Education How to access health informa tion online - Detail Indication:BMI 28.0-28.9,adult Start:07-Sep-2019 Instruction Type:Patient Education Patient Instructions Indication:Post-nasal drainage Start:07-Sep-2019 Instruction Type:Provider Instructions for Treatment How to access health informa tion online Indication:Hypertension, benign Start:17-May-2019 Instruction Type:Patient Education How to access health informa tion online - Detail Indication:Hypertension, benign Start:17-May-2019 Instruction Type:Patient Education Patient Instructions Indication:Hypertension, benign Start:17-May-2019 Instruction Type:Provider Instructions for Treatment How to access health informa tion online Indication:Nonsmoker Start:14-Nov-2018 Instruction Type:Patient Education How to access health informa tion online - Detail Indication:Nonsmoker Start:14-Nov-2018 Instruction Type:Patient Education Patient Instructions Indication:Nonsmoker Start:14-Nov-2018 Instruction Type:Provider Instructions for Treatment How to access health informa tion online Indication:Nonsmoker Start:14-Sep-2018 Instruction Type:Patient Education How to access health informa tion online - Detail Indication:Nonsmoker Start:14-Sep-2018 Instruction Type:Patient Education Patient Instructions Indication:Nonsmoker Start:14-Sep-2018 Instruction Type:Provider Instructions for Treatment How to access health informa tion online Indication:Nonsmoker Start:04-Jul-2018 Instruction Type:Patient Education Patient Instructions Indication:Nonsmoker Start:04-Jul-2018 Instruction Type:Provider Instructions for Treatment How to access health informa tion online Indication:BMI 27.0-27.9,adult Start:14-Jun-2018 Instruction Type:Patient Education How to access health informa tion online - Detail Indication:BMI 27.0-27.9,adult Start:14-Jun-2018 Instruction Type:Patient Education Patient Instructions Indication:BMI 27.0-27.9,adult Start:14-Jun-2018 Instruction Type:Provider Instructions for Treatment How to access health informa tion online Indication:Need for prophylactic vaccination and inoculation against influenza (Renamed from Need for immunization against influenza) Start:19-May-2018 Instruction Type:Patient Education How to access health informa tion online - Detail Indication:Need for prophylactic vaccination and inoculation against influenza (Renamed from Need for immunization against influenza) Start:19-May-2018 Instruction Type:Patient Education Patient Instructions Indication:Need for prophylactic vaccination and inoculation against influenza (Renamed from Need for immunization against influenza) Start:19-May-2018 Instruction Type:Provider Instructions for Treatment How to access health informa tion online Indication:Nonsmoker Start:16-Nov-2017 Instruction Type:Patient Education How to access health informa tion online - Detail Indication:Nonsmoker Start:16-Nov-2017 Instruction Type:Patient Education Patient Instructions Indication:Nonsmoker Start:16-Nov-2017 Instruction Type:Provider Instructions for Treatment How to access health informa tion online Indication:Nonsmoker Start:10-Nov-2017 Instruction Type:Patient Education How to access health informa tion online - Detail Indication:Nonsmoker Start:10-Nov-2017 Instruction Type:Patient Education Patient Instructions Indication:Nonsmoker Start:10-Nov-2017 Instruction Type:Provider Instructions for Treatment How to access health informa tion online Indication:Nonsmoker Start:02-Nov-2016 Instruction Type:Patient Education How to access health informa tion online - Detail Indication:Nonsmoker Start:02-Nov-2016 Instruction Type:Patient Education Patient Instructions Indication:Nonsmoker Start:02-Nov-2016 Instruction Type:Provider Instructions for Treatment How to access health informa tion online - Detail Indication:Bronchitis Start:08-Sep-2016 Instruction Type:Patient Education Patient Instructions Indication:Bronchitis Start:08-Sep-2016 Instruction Type:Provider Instructions for Treatment How to access health informa tion online Indication:Encounter for screening mammogram for breast cancer (Renamed from Encounter for screening mammogram for malignant neoplasm of breast) Start:19-May-2016 Instruction Type:Patient Education How to access health informa tion online - Detail Indication:Encounter for screening mammogram for breast cancer (Renamed from Encounter for screening mammogram for malignant neoplasm of breast) Start:19-May-2016 Instruction Type:Patient Education Patient Instructions Indication:Encounter for screening mammogram for breast cancer (Renamed from Encounter for screening mammogram for malignant neoplasm of breast) Start:19-May-2016 Instruction Type:Provider Instructions for Treatment Patient Instructions Indication:Acute bronchitis due to other specified organisms Start:07-May-2016 Instruction Type:Provider Instructions for Treatment How to access health informa tion online Indication:Cough Start:08-Apr-2016 Instruction Type:Patient Education How to access health informa tion online - Detail Indication:Cough Start:08-Apr-2016 Instruction Type:Patient Education Patient Instructions Indication:Cough Start:08-Apr-2016 Instruction Type:Provider Instructions for Treatment How to access health informa tion online Indication:Cough Start:31-Mar-2016 Instruction Type:Patient Education How to access health informa tion online - Detail Indication:Cough Start:31-Mar-2016 Instruction Type:Patient Education Patient Instructions Indication:Cough Start:31-Mar-2016 Instruction Type:Provider Instructions for Treatment How to access health informa tion online - Detail Indication:Cough Start:09-Dec-2015 Instruction Type:Patient Education Patient Instructions Indication:Cough Start:09-Dec-2015 Instruction Type:Provider Instructions for Treatment How to access health informa tion online Indication:Rash/skin eruption Start:23-Apr-2015 Instruction Type:Patient Education How to access health informa tion online - Detail Indication:Rash/skin eruption Start:23-Apr-2015 Instruction Type:Patient Education Patient Instructions Indication:Rash/skin eruption Start:23-Apr-2015 Instruction Type:Provider Instructions for Treatment Patient Instructions Indication:Rash/skin eruption Start:18-Mar-2015 Instruction Type:Provider Instructions for Treatment Patient Instructions Indication:Acute bronchitis Start:29-Oct-2014 Instruction Type:Provider Instructions for Treatment How to access health informa tion online Indication:GERD (gastroesophageal reflux disease) Start:10-Jul-2014 Instruction Type:Patient Education How to access health informa tion online - Detail Indication:GERD (gastroesophageal reflux disease) Start:10-Jul-2014 Instruction Type:Patient Education Patient Instructions Indication:GERD (gastroesophageal reflux disease) Start:10-Jul-2014 Instruction Type:Provider Instructions for Treatment Patient Instructions Indication:GERD (gastroesophageal reflux disease) Start:12-May-2013 Instruction Type:Provider Instructions for Treatment Name Dates Details How to access health informa tion online Indication:BMI 27.0-27.9,adult Start:29-Apr-2020 Instruction Type:Patient Education How to access health informa tion online - Detail Indication:BMI 27.0-27.9,adult Start:29-Apr-2020 Instruction Type:Patient Education Patient Instructions Indication:BMI 27.0-27.9,adult Start:29-Apr-2020 Instruction Type:Provider Instructions for Treatment How to access health informa tion online Indication:Nonsmoker Start:21-Dec-2019 Instruction Type:Patient Education How to access health informa tion online - Detail Indication:Nonsmoker Start:21-Dec-2019 Instruction Type:Patient Education Patient Instructions Indication:Nonsmoker Start:21-Dec-2019 Instruction Type:Provider Instructions for Treatment How to access health informa tion online Indication:Nonsmoker Start:07-Dec-2019 Instruction Type:Patient Education How to access health informa tion online - Detail Indication:Nonsmoker Start:07-Dec-2019 Instruction Type:Patient Education Patient Instructions Indication:Nonsmoker Start:07-Dec-2019 Instruction Type:Provider Instructions for Treatment How to access health informa tion online Indication:BMI 27.0-27.9,adult Start:16-Nov-2019 Instruction Type:Patient Education How to access health informa tion online - Detail Indication:BMI 27.0-27.9,adult Start:16-Nov-2019 Instruction Type:Patient Education Patient Instructions Indication:BMI 27.0-27.9,adult Start:16-Nov-2019 Instruction Type:Provider Instructions for Treatment How to access health informa tion online Indication:BMI 28.0-28.9,adult Start:07-Sep-2019 Instruction Type:Patient Education How to access health informa tion online - Detail Indication:BMI 28.0-28.9,adult Start:07-Sep-2019 Instruction Type:Patient Education Patient Instructions Indication:Post-nasal drainage Start:07-Sep-2019 Instruction Type:Provider Instructions for Treatment How to access health informa tion online Indication:Hypertension, benign Start:17-May-2019 Instruction Type:Patient Education How to access health informa tion online - Detail Indication:Hypertension, benign Start:17-May-2019 Instruction Type:Patient Education Patient Instructions Indication:Hypertension, benign Start:17-May-2019 Instruction Type:Provider Instructions for Treatment How to access health informa tion online Indication:Nonsmoker Start:14-Nov-2018 Instruction Type:Patient Education How to access health informa tion online - Detail Indication:Nonsmoker Start:14-Nov-2018 Instruction Type:Patient Education Patient Instructions Indication:Nonsmoker Start:14-Nov-2018 Instruction Type:Provider Instructions for Treatment How to access health informa tion online Indication:Nonsmoker Start:14-Sep-2018 Instruction Type:Patient Education How to access health informa tion online - Detail Indication:Nonsmoker Start:14-Sep-2018 Instruction Type:Patient Education Patient Instructions Indication:Nonsmoker Start:14-Sep-2018 Instruction Type:Provider Instructions for Treatment How to access health informa tion online Indication:Nonsmoker Start:04-Jul-2018 Instruction Type:Patient Education Patient Instructions Indication:Nonsmoker Start:04-Jul-2018 Instruction Type:Provider Instructions for Treatment How to access health informa tion online Indication:BMI 27.0-27.9,adult Start:14-Jun-2018 Instruction Type:Patient Education How to access health informa tion online - Detail Indication:BMI 27.0-27.9,adult Start:14-Jun-2018 Instruction Type:Patient Education Patient Instructions Indication:BMI 27.0-27.9,adult Start:14-Jun-2018 Instruction Type:Provider Instructions for Treatment How to access health informa tion online Indication:Need for prophylactic vaccination and inoculation against influenza (Renamed from Need for immunization against influenza) Start:19-May-2018 Instruction Type:Patient Education How to access health informa tion online - Detail Indication:Need for prophylactic vaccination and inoculation against influenza (Renamed from Need for immunization against influenza) Start:19-May-2018 Instruction Type:Patient Education Patient Instructions Indication:Need for prophylactic vaccination and inoculation against influenza (Renamed from Need for immunization against influenza) Start:19-May-2018 Instruction Type:Provider Instructions for Treatment How to access health informa tion online Indication:Nonsmoker Start:16-Nov-2017 Instruction Type:Patient Education How to access health informa tion online - Detail Indication:Nonsmoker Start:16-Nov-2017 Instruction Type:Patient Education Patient Instructions Indication:Nonsmoker Start:16-Nov-2017 Instruction Type:Provider Instructions for Treatment How to access health informa tion online Indication:Nonsmoker Start:10-Nov-2017 Instruction Type:Patient Education How to access health informa tion online - Detail Indication:Nonsmoker Start:10-Nov-2017 Instruction Type:Patient Education Patient Instructions Indication:Nonsmoker Start:10-Nov-2017 Instruction Type:Provider Instructions for Treatment How to access health informa tion online Indication:Nonsmoker Start:02-Nov-2016 Instruction Type:Patient Education How to access health informa tion online - Detail Indication:Nonsmoker Start:02-Nov-2016 Instruction Type:Patient Education Patient Instructions Indication:Nonsmoker Start:02-Nov-2016 Instruction Type:Provider Instructions for Treatment How to access health informa tion online - Detail Indication:Bronchitis Start:08-Sep-2016 Instruction Type:Patient Education Patient Instructions Indication:Bronchitis Start:08-Sep-2016 Instruction Type:Provider Instructions for Treatment How to access health informa tion online Indication:Encounter for screening mammogram for breast cancer (Renamed from Encounter for screening mammogram for malignant neoplasm of breast) Start:19-May-2016 Instruction Type:Patient Education How to access health informa tion online - Detail Indication:Encounter for screening mammogram for breast cancer (Renamed from Encounter for screening mammogram for malignant neoplasm of breast) Start:19-May-2016 Instruction Type:Patient Education Patient Instructions Indication:Encounter for screening mammogram for breast cancer (Renamed from Encounter for screening mammogram for malignant neoplasm of breast) Start:19-May-2016 Instruction Type:Provider Instructions for Treatment Patient Instructions Indication:Acute bronchitis due to other specified organisms Start:07-May-2016 Instruction Type:Provider Instructions for Treatment How to access health informa tion online Indication:Cough Start:08-Apr-2016 Instruction Type:Patient Education How to access health informa tion online - Detail Indication:Cough Start:08-Apr-2016 Instruction Type:Patient Education Patient Instructions Indication:Cough Start:08-Apr-2016 Instruction Type:Provider Instructions for Treatment How to access health informa tion online Indication:Cough Start:31-Mar-2016 Instruction Type:Patient Education How to access health informa tion online - Detail Indication:Cough Start:31-Mar-2016 Instruction Type:Patient Education Patient Instructions Indication:Cough Start:31-Mar-2016 Instruction Type:Provider Instructions for Treatment How to access health informa tion online - Detail Indication:Cough Start:09-Dec-2015 Instruction Type:Patient Education Patient Instructions Indication:Cough Start:09-Dec-2015 Instruction Type:Provider Instructions for Treatment How to access health informa tion online Indication:Rash/skin eruption Start:23-Apr-2015 Instruction Type:Patient Education How to access health informa tion online - Detail Indication:Rash/skin eruption Start:23-Apr-2015 Instruction Type:Patient Education Patient Instructions Indication:Rash/skin eruption Start:23-Apr-2015 Instruction Type:Provider Instructions for Treatment Patient Instructions Indication:Rash/skin eruption Start:18-Mar-2015 Instruction Type:Provider Instructions for Treatment Patient Instructions Indication:Acute bronchitis Start:29-Oct-2014 Instruction Type:Provider Instructions for Treatment How to access health informa tion online Indication:GERD (gastroesophageal reflux disease) Start:10-Jul-2014 Instruction Type:Patient Education How to access health informa tion online - Detail Indication:GERD (gastroesophageal reflux disease) Start:10-Jul-2014 Instruction Type:Patient Education Patient Instructions Indication:GERD (gastroesophageal reflux disease) Start:10-Jul-2014 Instruction Type:Provider Instructions for Treatment Patient Instructions Indication:GERD (gastroesophageal reflux disease) Start:12-May-2013 Instruction Type:Provider Instructions for Treatment Name Dates Details How to access health informa tion online Indication:BMI 27.0-27.9,adult Start:12-Jun-2020 Instruction Type:Patient Education How to access health informa tion online - Detail Indication:BMI 27.0-27.9,adult Start:12-Jun-2020 Instruction Type:Patient Education Patient Instructions Indication:BMI 27.0-27.9,adult Start:12-Jun-2020 Instruction Type:Provider Instructions for Treatment How to access health informa tion online Indication:BMI 27.0-27.9,adult Start:29-Apr-2020 Instruction Type:Patient Education How to access health informa tion online - Detail Indication:BMI 27.0-27.9,adult Start:29-Apr-2020 Instruction Type:Patient Education Patient Instructions Indication:BMI 27.0-27.9,adult Start:29-Apr-2020 Instruction Type:Provider Instructions for Treatment How to access health informa tion online Indication:Nonsmoker Start:21-Dec-2019 Instruction Type:Patient Education How to access health informa tion online - Detail Indication:Nonsmoker Start:21-Dec-2019 Instruction Type:Patient Education Patient Instructions Indication:Nonsmoker Start:21-Dec-2019 Instruction Type:Provider Instructions for Treatment How to access health informa tion online Indication:Nonsmoker Start:07-Dec-2019 Instruction Type:Patient Education How to access health informa tion online - Detail Indication:Nonsmoker Start:07-Dec-2019 Instruction Type:Patient Education Patient Instructions Indication:Nonsmoker Start:07-Dec-2019 Instruction Type:Provider Instructions for Treatment How to access health informa tion online Indication:BMI 27.0-27.9,adult Start:16-Nov-2019 Instruction Type:Patient Education How to access health informa tion online - Detail Indication:BMI 27.0-27.9,adult Start:16-Nov-2019 Instruction Type:Patient Education Patient Instructions Indication:BMI 27.0-27.9,adult Start:16-Nov-2019 Instruction Type:Provider Instructions for Treatment How to access health informa tion online Indication:BMI 28.0-28.9,adult Start:07-Sep-2019 Instruction Type:Patient Education How to access health informa tion online - Detail Indication:BMI 28.0-28.9,adult Start:07-Sep-2019 Instruction Type:Patient Education Patient Instructions Indication:Post-nasal drainage Start:07-Sep-2019 Instruction Type:Provider Instructions for Treatment How to access health informa tion online Indication:Hypertension, benign Start:17-May-2019 Instruction Type:Patient Education How to access health informa tion online - Detail Indication:Hypertension, benign Start:17-May-2019 Instruction Type:Patient Education Patient Instructions Indication:Hypertension, benign Start:17-May-2019 Instruction Type:Provider Instructions for Treatment How to access health informa tion online Indication:Nonsmoker Start:14-Nov-2018 Instruction Type:Patient Education How to access health informa tion online - Detail Indication:Nonsmoker Start:14-Nov-2018 Instruction Type:Patient Education Patient Instructions Indication:Nonsmoker Start:14-Nov-2018 Instruction Type:Provider Instructions for Treatment How to access health informa tion online Indication:Nonsmoker Start:14-Sep-2018 Instruction Type:Patient Education How to access health informa tion online - Detail Indication:Nonsmoker Start:14-Sep-2018 Instruction Type:Patient Education Patient Instructions Indication:Nonsmoker Start:14-Sep-2018 Instruction Type:Provider Instructions for Treatment How to access health informa tion online Indication:Nonsmoker Start:04-Jul-2018 Instruction Type:Patient Education Patient Instructions Indication:Nonsmoker Start:04-Jul-2018 Instruction Type:Provider Instructions for Treatment How to access health informa tion online Indication:BMI 27.0-27.9,adult Start:14-Jun-2018 Instruction Type:Patient Education How to access health informa tion online - Detail Indication:BMI 27.0-27.9,adult Start:14-Jun-2018 Instruction Type:Patient Education Patient Instructions Indication:BMI 27.0-27.9,adult Start:14-Jun-2018 Instruction Type:Provider Instructions for Treatment How to access health informa tion online Indication:Need for prophylactic vaccination and inoculation against influenza (Renamed from Need for immunization against influenza) Start:19-May-2018 Instruction Type:Patient Education How to access health informa tion online - Detail Indication:Need for prophylactic vaccination and inoculation against influenza (Renamed from Need for immunization against influenza) Start:19-May-2018 Instruction Type:Patient Education Patient Instructions Indication:Need for prophylactic vaccination and inoculation against influenza (Renamed from Need for immunization against influenza) Start:19-May-2018 Instruction Type:Provider Instructions for Treatment How to access health informa tion online Indication:Nonsmoker Start:16-Nov-2017 Instruction Type:Patient Education How to access health informa tion online - Detail Indication:Nonsmoker Start:16-Nov-2017 Instruction Type:Patient Education Patient Instructions Indication:Nonsmoker Start:16-Nov-2017 Instruction Type:Provider Instructions for Treatment How to access health informa tion online Indication:Nonsmoker Start:10-Nov-2017 Instruction Type:Patient Education How to access health informa tion online - Detail Indication:Nonsmoker Start:10-Nov-2017 Instruction Type:Patient Education Patient Instructions Indication:Nonsmoker Start:10-Nov-2017 Instruction Type:Provider Instructions for Treatment How to access health informa tion online Indication:Nonsmoker Start:02-Nov-2016 Instruction Type:Patient Education How to access health informa tion online - Detail Indication:Nonsmoker Start:02-Nov-2016 Instruction Type:Patient Education Patient Instructions Indication:Nonsmoker Start:02-Nov-2016 Instruction Type:Provider Instructions for Treatment How to access health informa tion online - Detail Indication:Bronchitis Start:08-Sep-2016 Instruction Type:Patient Education Patient Instructions Indication:Bronchitis Start:08-Sep-2016 Instruction Type:Provider Instructions for Treatment How to access health informa tion online Indication:Encounter for screening mammogram for breast cancer (Renamed from Encounter for screening mammogram for malignant neoplasm of breast) Start:19-May-2016 Instruction Type:Patient Education How to access health informa tion online - Detail Indication:Encounter for screening mammogram for breast cancer (Renamed from Encounter for screening mammogram for malignant neoplasm of breast) Start:19-May-2016 Instruction Type:Patient Education Patient Instructions Indication:Encounter for screening mammogram for breast cancer (Renamed from Encounter for screening mammogram for malignant neoplasm of breast) Start:19-May-2016 Instruction Type:Provider Instructions for Treatment Patient Instructions Indication:Acute bronchitis due to other specified organisms Start:07-May-2016 Instruction Type:Provider Instructions for Treatment How to access health informa tion online Indication:Cough Start:08-Apr-2016 Instruction Type:Patient Education How to access health informa tion online - Detail Indication:Cough Start:08-Apr-2016 Instruction Type:Patient Education Patient Instructions Indication:Cough Start:08-Apr-2016 Instruction Type:Provider Instructions for Treatment How to access health informa tion online Indication:Cough Start:31-Mar-2016 Instruction Type:Patient Education How to access health informa tion online - Detail Indication:Cough Start:31-Mar-2016 Instruction Type:Patient Education Patient Instructions Indication:Cough Start:31-Mar-2016 Instruction Type:Provider Instructions for Treatment How to access health informa tion online - Detail Indication:Cough Start:09-Dec-2015 Instruction Type:Patient Education Patient Instructions Indication:Cough Start:09-Dec-2015 Instruction Type:Provider Instructions for Treatment How to access health informa tion online Indication:Rash/skin eruption Start:23-Apr-2015 Instruction Type:Patient Education How to access health informa tion online - Detail Indication:Rash/skin eruption Start:23-Apr-2015 Instruction Type:Patient Education Patient Instructions Indication:Rash/skin eruption Start:23-Apr-2015 Instruction Type:Provider Instructions for Treatment Patient Instructions Indication:Rash/skin eruption Start:18-Mar-2015 Instruction Type:Provider Instructions for Treatment Patient Instructions Indication:Acute bronchitis Start:29-Oct-2014 Instruction Type:Provider Instructions for Treatment How to access health informa tion online Indication:GERD (gastroesophageal reflux disease) Start:10-Jul-2014 Instruction Type:Patient Education How to access health informa tion online - Detail Indication:GERD (gastroesophageal reflux disease) Start:10-Jul-2014 Instruction Type:Patient Education Patient Instructions Indication:GERD (gastroesophageal reflux disease) Start:10-Jul-2014 Instruction Type:Provider Instructions for Treatment Patient Instructions Indication:GERD (gastroesophageal reflux disease) Start:12-May-2013 Instruction Type:Provider Instructions for Treatment Name Dates Details How to access health informa tion online Indication:Nonsmoker Start:11-Jul-2020 Instruction Type:Patient Education How to access health informa tion online - Detail Indication:Nonsmoker Start:11-Jul-2020 Instruction Type:Patient Education Patient Instructions Indication:Nonsmoker Start:11-Jul-2020 Instruction Type:Provider Instructions for Treatment How to access health informa tion online Indication:BMI 27.0-27.9,adult Start:12-Jun-2020 Instruction Type:Patient Education How to access health informa tion online - Detail Indication:BMI 27.0-27.9,adult Start:12-Jun-2020 Instruction Type:Patient Education Patient Instructions Indication:BMI 27.0-27.9,adult Start:12-Jun-2020 Instruction Type:Provider Instructions for Treatment How to access health informa tion online Indication:BMI 27.0-27.9,adult Start:29-Apr-2020 Instruction Type:Patient Education How to access health informa tion online - Detail Indication:BMI 27.0-27.9,adult Start:29-Apr-2020 Instruction Type:Patient Education Patient Instructions Indication:BMI 27.0-27.9,adult Start:29-Apr-2020 Instruction Type:Provider Instructions for Treatment How to access health informa tion online Indication:Nonsmoker Start:21-Dec-2019 Instruction Type:Patient Education How to access health informa tion online - Detail Indication:Nonsmoker Start:21-Dec-2019 Instruction Type:Patient Education Patient Instructions Indication:Nonsmoker Start:21-Dec-2019 Instruction Type:Provider Instructions for Treatment How to access health informa tion online Indication:Nonsmoker Start:07-Dec-2019 Instruction Type:Patient Education How to access health informa tion online - Detail Indication:Nonsmoker Start:07-Dec-2019 Instruction Type:Patient Education Patient Instructions Indication:Nonsmoker Start:07-Dec-2019 Instruction Type:Provider Instructions for Treatment How to access health informa tion online Indication:BMI 27.0-27.9,adult Start:16-Nov-2019 Instruction Type:Patient Education How to access health informa tion online - Detail Indication:BMI 27.0-27.9,adult Start:16-Nov-2019 Instruction Type:Patient Education Patient Instructions Indication:BMI 27.0-27.9,adult Start:16-Nov-2019 Instruction Type:Provider Instructions for Treatment How to access health informa tion online Indication:BMI 28.0-28.9,adult Start:07-Sep-2019 Instruction Type:Patient Education How to access health informa tion online - Detail Indication:BMI 28.0-28.9,adult Start:07-Sep-2019 Instruction Type:Patient Education Patient Instructions Indication:Post-nasal drainage Start:07-Sep-2019 Instruction Type:Provider Instructions for Treatment How to access health informa tion online Indication:Hypertension, benign Start:17-May-2019 Instruction Type:Patient Education How to access health informa tion online - Detail Indication:Hypertension, benign Start:17-May-2019 Instruction Type:Patient Education Patient Instructions Indication:Hypertension, benign Start:17-May-2019 Instruction Type:Provider Instructions for Treatment How to access health informa tion online Indication:Nonsmoker Start:14-Nov-2018 Instruction Type:Patient Education How to access health informa tion online - Detail Indication:Nonsmoker Start:14-Nov-2018 Instruction Type:Patient Education Patient Instructions Indication:Nonsmoker Start:14-Nov-2018 Instruction Type:Provider Instructions for Treatment How to access health informa tion online Indication:Nonsmoker Start:14-Sep-2018 Instruction Type:Patient Education How to access health informa tion online - Detail Indication:Nonsmoker Start:14-Sep-2018 Instruction Type:Patient Education Patient Instructions Indication:Nonsmoker Start:14-Sep-2018 Instruction Type:Provider Instructions for Treatment How to access health informa tion online Indication:Nonsmoker Start:04-Jul-2018 Instruction Type:Patient Education Patient Instructions Indication:Nonsmoker Start:04-Jul-2018 Instruction Type:Provider Instructions for Treatment How to access health informa tion online Indication:BMI 27.0-27.9,adult Start:14-Jun-2018 Instruction Type:Patient Education How to access health informa tion online - Detail Indication:BMI 27.0-27.9,adult Start:14-Jun-2018 Instruction Type:Patient Education Patient Instructions Indication:BMI 27.0-27.9,adult Start:14-Jun-2018 Instruction Type:Provider Instructions for Treatment How to access health informa tion online Indication:Need for prophylactic vaccination and inoculation against influenza (Renamed from Need for immunization against influenza) Start:19-May-2018 Instruction Type:Patient Education How to access health informa tion online - Detail Indication:Need for prophylactic vaccination and inoculation against influenza (Renamed from Need for immunization against influenza) Start:19-May-2018 Instruction Type:Patient Education Patient Instructions Indication:Need for prophylactic vaccination and inoculation against influenza (Renamed from Need for immunization against influenza) Start:19-May-2018 Instruction Type:Provider Instructions for Treatment How to access health informa tion online Indication:Nonsmoker Start:16-Nov-2017 Instruction Type:Patient Education How to access health informa tion online - Detail Indication:Nonsmoker Start:16-Nov-2017 Instruction Type:Patient Education Patient Instructions Indication:Nonsmoker Start:16-Nov-2017 Instruction Type:Provider Instructions for Treatment How to access health informa tion online Indication:Nonsmoker Start:10-Nov-2017 Instruction Type:Patient Education How to access health informa tion online - Detail Indication:Nonsmoker Start:10-Nov-2017 Instruction Type:Patient Education Patient Instructions Indication:Nonsmoker Start:10-Nov-2017 Instruction Type:Provider Instructions for Treatment How to access health informa tion online Indication:Nonsmoker Start:02-Nov-2016 Instruction Type:Patient Education How to access health informa tion online - Detail Indication:Nonsmoker Start:02-Nov-2016 Instruction Type:Patient Education Patient Instructions Indication:Nonsmoker Start:02-Nov-2016 Instruction Type:Provider Instructions for Treatment How to access health informa tion online - Detail Indication:Bronchitis Start:08-Sep-2016 Instruction Type:Patient Education Patient Instructions Indication:Bronchitis Start:08-Sep-2016 Instruction Type:Provider Instructions for Treatment How to access health informa tion online Indication:Encounter for screening mammogram for breast cancer (Renamed from Encounter for screening mammogram for malignant neoplasm of breast) Start:19-May-2016 Instruction Type:Patient Education How to access health informa tion online - Detail Indication:Encounter for screening mammogram for breast cancer (Renamed from Encounter for screening mammogram for malignant neoplasm of breast) Start:19-May-2016 Instruction Type:Patient Education Patient Instructions Indication:Encounter for screening mammogram for breast cancer (Renamed from Encounter for screening mammogram for malignant neoplasm of breast) Start:19-May-2016 Instruction Type:Provider Instructions for Treatment Patient Instructions Indication:Acute bronchitis due to other specified organisms Start:07-May-2016 Instruction Type:Provider Instructions for Treatment How to access health informa tion online Indication:Cough Start:08-Apr-2016 Instruction Type:Patient Education How to access health informa tion online - Detail Indication:Cough Start:08-Apr-2016 Instruction Type:Patient Education Patient Instructions Indication:Cough Start:08-Apr-2016 Instruction Type:Provider Instructions for Treatment How to access health informa tion online Indication:Cough Start:31-Mar-2016 Instruction Type:Patient Education How to access health informa tion online - Detail Indication:Cough Start:31-Mar-2016 Instruction Type:Patient Education Patient Instructions Indication:Cough Start:31-Mar-2016 Instruction Type:Provider Instructions for Treatment How to access health informa tion online - Detail Indication:Cough Start:09-Dec-2015 Instruction Type:Patient Education Patient Instructions Indication:Cough Start:09-Dec-2015 Instruction Type:Provider Instructions for Treatment How to access health informa tion online Indication:Rash/skin eruption Start:23-Apr-2015 Instruction Type:Patient Education How to access health informa tion online - Detail Indication:Rash/skin eruption Start:23-Apr-2015 Instruction Type:Patient Education Patient Instructions Indication:Rash/skin eruption Start:23-Apr-2015 Instruction Type:Provider Instructions for Treatment Patient Instructions Indication:Rash/skin eruption Start:18-Mar-2015 Instruction Type:Provider Instructions for Treatment Patient Instructions Indication:Acute bronchitis Start:29-Oct-2014 Instruction Type:Provider Instructions for Treatment How to access health informa tion online Indication:GERD (gastroesophageal reflux disease) Start:10-Jul-2014 Instruction Type:Patient Education How to access health informa tion online - Detail Indication:GERD (gastroesophageal reflux disease) Start:10-Jul-2014 Instruction Type:Patient Education Patient Instructions Indication:GERD (gastroesophageal reflux disease) Start:10-Jul-2014 Instruction Type:Provider Instructions for Treatment Patient Instructions Indication:GERD (gastroesophageal reflux disease) Start:12-May-2013 Instruction Type:Provider Instructions for Treatment Name Dates Details How to access health informa tion online Indication:Nonsmoker Start:11-Jul-2020 Instruction Type:Patient Education How to access health informa tion online - Detail Indication:Nonsmoker Start:11-Jul-2020 Instruction Type:Patient Education Patient Instructions Indication:Nonsmoker Start:11-Jul-2020 Instruction Type:Provider Instructions for Treatment How to access health informa tion online Indication:BMI 27.0-27.9,adult Start:12-Jun-2020 Instruction Type:Patient Education How to access health informa tion online - Detail Indication:BMI 27.0-27.9,adult Start:12-Jun-2020 Instruction Type:Patient Education Patient Instructions Indication:BMI 27.0-27.9,adult Start:12-Jun-2020 Instruction Type:Provider Instructions for Treatment How to access health informa tion online Indication:BMI 27.0-27.9,adult Start:29-Apr-2020 Instruction Type:Patient Education How to access health informa tion online - Detail Indication:BMI 27.0-27.9,adult Start:29-Apr-2020 Instruction Type:Patient Education Patient Instructions Indication:BMI 27.0-27.9,adult Start:29-Apr-2020 Instruction Type:Provider Instructions for Treatment How to access health informa tion online Indication:Nonsmoker Start:21-Dec-2019 Instruction Type:Patient Education How to access health informa tion online - Detail Indication:Nonsmoker Start:21-Dec-2019 Instruction Type:Patient Education Patient Instructions Indication:Nonsmoker Start:21-Dec-2019 Instruction Type:Provider Instructions for Treatment How to access health informa tion online Indication:Nonsmoker Start:07-Dec-2019 Instruction Type:Patient Education How to access health informa tion online - Detail Indication:Nonsmoker Start:07-Dec-2019 Instruction Type:Patient Education Patient Instructions Indication:Nonsmoker Start:07-Dec-2019 Instruction Type:Provider Instructions for Treatment How to access health informa tion online Indication:BMI 27.0-27.9,adult Start:16-Nov-2019 Instruction Type:Patient Education How to access health informa tion online - Detail Indication:BMI 27.0-27.9,adult Start:16-Nov-2019 Instruction Type:Patient Education Patient Instructions Indication:BMI 27.0-27.9,adult Start:16-Nov-2019 Instruction Type:Provider Instructions for Treatment How to access health informa tion online Indication:BMI 28.0-28.9,adult Start:07-Sep-2019 Instruction Type:Patient Education How to access health informa tion online - Detail Indication:BMI 28.0-28.9,adult Start:07-Sep-2019 Instruction Type:Patient Education Patient Instructions Indication:Post-nasal drainage Start:07-Sep-2019 Instruction Type:Provider Instructions for Treatment How to access health informa tion online Indication:Hypertension, benign Start:17-May-2019 Instruction Type:Patient Education How to access health informa tion online - Detail Indication:Hypertension, benign Start:17-May-2019 Instruction Type:Patient Education Patient Instructions Indication:Hypertension, benign Start:17-May-2019 Instruction Type:Provider Instructions for Treatment How to access health informa tion online Indication:Nonsmoker Start:14-Nov-2018 Instruction Type:Patient Education How to access health informa tion online - Detail Indication:Nonsmoker Start:14-Nov-2018 Instruction Type:Patient Education Patient Instructions Indication:Nonsmoker Start:14-Nov-2018 Instruction Type:Provider Instructions for Treatment How to access health informa tion online Indication:Nonsmoker Start:14-Sep-2018 Instruction Type:Patient Education How to access health informa tion online - Detail Indication:Nonsmoker Start:14-Sep-2018 Instruction Type:Patient Education Patient Instructions Indication:Nonsmoker Start:14-Sep-2018 Instruction Type:Provider Instructions for Treatment How to access health informa tion online Indication:Nonsmoker Start:04-Jul-2018 Instruction Type:Patient Education Patient Instructions Indication:Nonsmoker Start:04-Jul-2018 Instruction Type:Provider Instructions for Treatment How to access health informa tion online Indication:BMI 27.0-27.9,adult Start:14-Jun-2018 Instruction Type:Patient Education How to access health informa tion online - Detail Indication:BMI 27.0-27.9,adult Start:14-Jun-2018 Instruction Type:Patient Education Patient Instructions Indication:BMI 27.0-27.9,adult Start:14-Jun-2018 Instruction Type:Provider Instructions for Treatment How to access health informa tion online Indication:Need for prophylactic vaccination and inoculation against influenza (Renamed from Need for immunization against influenza) Start:19-May-2018 Instruction Type:Patient Education How to access health informa tion online - Detail Indication:Need for prophylactic vaccination and inoculation against influenza (Renamed from Need for immunization against influenza) Start:19-May-2018 Instruction Type:Patient Education Patient Instructions Indication:Need for prophylactic vaccination and inoculation against influenza (Renamed from Need for immunization against influenza) Start:19-May-2018 Instruction Type:Provider Instructions for Treatment How to access health informa tion online Indication:Nonsmoker Start:16-Nov-2017 Instruction Type:Patient Education How to access health informa tion online - Detail Indication:Nonsmoker Start:16-Nov-2017 Instruction Type:Patient Education Patient Instructions Indication:Nonsmoker Start:16-Nov-2017 Instruction Type:Provider Instructions for Treatment How to access health informa tion online Indication:Nonsmoker Start:10-Nov-2017 Instruction Type:Patient Education How to access health informa tion online - Detail Indication:Nonsmoker Start:10-Nov-2017 Instruction Type:Patient Education Patient Instructions Indication:Nonsmoker Start:10-Nov-2017 Instruction Type:Provider Instructions for Treatment How to access health informa tion online Indication:Nonsmoker Start:02-Nov-2016 Instruction Type:Patient Education How to access health informa tion online - Detail Indication:Nonsmoker Start:02-Nov-2016 Instruction Type:Patient Education Patient Instructions Indication:Nonsmoker Start:02-Nov-2016 Instruction Type:Provider Instructions for Treatment How to access health informa tion online - Detail Indication:Bronchitis Start:08-Sep-2016 Instruction Type:Patient Education Patient Instructions Indication:Bronchitis Start:08-Sep-2016 Instruction Type:Provider Instructions for Treatment How to access health informa tion online Indication:Encounter for screening mammogram for breast cancer (Renamed from Encounter for screening mammogram for malignant neoplasm of breast) Start:19-May-2016 Instruction Type:Patient Education How to access health informa tion online - Detail Indication:Encounter for screening mammogram for breast cancer (Renamed from Encounter for screening mammogram for malignant neoplasm of breast) Start:19-May-2016 Instruction Type:Patient Education Patient Instructions Indication:Encounter for screening mammogram for breast cancer (Renamed from Encounter for screening mammogram for malignant neoplasm of breast) Start:19-May-2016 Instruction Type:Provider Instructions for Treatment Patient Instructions Indication:Acute bronchitis due to other specified organisms Start:07-May-2016 Instruction Type:Provider Instructions for Treatment How to access health informa tion online Indication:Cough Start:08-Apr-2016 Instruction Type:Patient Education How to access health informa tion online - Detail Indication:Cough Start:08-Apr-2016 Instruction Type:Patient Education Patient Instructions Indication:Cough Start:08-Apr-2016 Instruction Type:Provider Instructions for Treatment How to access health informa tion online Indication:Cough Start:31-Mar-2016 Instruction Type:Patient Education How to access health informa tion online - Detail Indication:Cough Start:31-Mar-2016 Instruction Type:Patient Education Patient Instructions Indication:Cough Start:31-Mar-2016 Instruction Type:Provider Instructions for Treatment How to access health informa tion online - Detail Indication:Cough Start:09-Dec-2015 Instruction Type:Patient Education Patient Instructions Indication:Cough Start:09-Dec-2015 Instruction Type:Provider Instructions for Treatment How to access health informa tion online Indication:Rash/skin eruption Start:23-Apr-2015 Instruction Type:Patient Education How to access health informa tion online - Detail Indication:Rash/skin eruption Start:23-Apr-2015 Instruction Type:Patient Education Patient Instructions Indication:Rash/skin eruption Start:23-Apr-2015 Instruction Type:Provider Instructions for Treatment Patient Instructions Indication:Rash/skin eruption Start:18-Mar-2015 Instruction Type:Provider Instructions for Treatment Patient Instructions Indication:Acute bronchitis Start:29-Oct-2014 Instruction Type:Provider Instructions for Treatment How to access health informa tion online Indication:GERD (gastroesophageal reflux disease) Start:10-Jul-2014 Instruction Type:Patient Education How to access health informa tion online - Detail Indication:GERD (gastroesophageal reflux disease) Start:10-Jul-2014 Instruction Type:Patient Education Patient Instructions Indication:GERD (gastroesophageal reflux disease) Start:10-Jul-2014 Instruction Type:Provider Instructions for Treatment Patient Instructions Indication:GERD (gastroesophageal reflux disease) Start:12-May-2013 Instruction Type:Provider Instructions for Treatment Name Dates Details How to access health informa tion online Indication:BMI 28.0-28.9,adult Start:18-Jul-2020 Instruction Type:Patient Education How to access health informa tion online - Detail Indication:BMI 28.0-28.9,adult Start:18-Jul-2020 Instruction Type:Patient Education Patient Instructions Indication:BMI 28.0-28.9,adult Start:18-Jul-2020 Instruction Type:Provider Instructions for Treatment How to access health informa tion online Indication:Nonsmoker Start:11-Jul-2020 Instruction Type:Patient Education How to access health informa tion online - Detail Indication:Nonsmoker Start:11-Jul-2020 Instruction Type:Patient Education Patient Instructions Indication:Nonsmoker Start:11-Jul-2020 Instruction Type:Provider Instructions for Treatment How to access health informa tion online Indication:BMI 27.0-27.9,adult Start:12-Jun-2020 Instruction Type:Patient Education How to access health informa tion online - Detail Indication:BMI 27.0-27.9,adult Start:12-Jun-2020 Instruction Type:Patient Education Patient Instructions Indication:BMI 27.0-27.9,adult Start:12-Jun-2020 Instruction Type:Provider Instructions for Treatment How to access health informa tion online Indication:BMI 27.0-27.9,adult Start:29-Apr-2020 Instruction Type:Patient Education How to access health informa tion online - Detail Indication:BMI 27.0-27.9,adult Start:29-Apr-2020 Instruction Type:Patient Education Patient Instructions Indication:BMI 27.0-27.9,adult Start:29-Apr-2020 Instruction Type:Provider Instructions for Treatment How to access health informa tion online Indication:Nonsmoker Start:21-Dec-2019 Instruction Type:Patient Education How to access health informa tion online - Detail Indication:Nonsmoker Start:21-Dec-2019 Instruction Type:Patient Education Patient Instructions Indication:Nonsmoker Start:21-Dec-2019 Instruction Type:Provider Instructions for Treatment How to access health informa tion online Indication:Nonsmoker Start:07-Dec-2019 Instruction Type:Patient Education How to access health informa tion online - Detail Indication:Nonsmoker Start:07-Dec-2019 Instruction Type:Patient Education Patient Instructions Indication:Nonsmoker Start:07-Dec-2019 Instruction Type:Provider Instructions for Treatment How to access health informa tion online Indication:BMI 27.0-27.9,adult Start:16-Nov-2019 Instruction Type:Patient Education How to access health informa tion online - Detail Indication:BMI 27.0-27.9,adult Start:16-Nov-2019 Instruction Type:Patient Education Patient Instructions Indication:BMI 27.0-27.9,adult Start:16-Nov-2019 Instruction Type:Provider Instructions for Treatment How to access health informa tion online Indication:BMI 28.0-28.9,adult Start:07-Sep-2019 Instruction Type:Patient Education How to access health informa tion online - Detail Indication:BMI 28.0-28.9,adult Start:07-Sep-2019 Instruction Type:Patient Education Patient Instructions Indication:Post-nasal drainage Start:07-Sep-2019 Instruction Type:Provider Instructions for Treatment How to access health informa tion online Indication:Hypertension, benign Start:17-May-2019 Instruction Type:Patient Education How to access health informa tion online - Detail Indication:Hypertension, benign Start:17-May-2019 Instruction Type:Patient Education Patient Instructions Indication:Hypertension, benign Start:17-May-2019 Instruction Type:Provider Instructions for Treatment How to access health informa tion online Indication:Nonsmoker Start:14-Nov-2018 Instruction Type:Patient Education How to access health informa tion online - Detail Indication:Nonsmoker Start:14-Nov-2018 Instruction Type:Patient Education Patient Instructions Indication:Nonsmoker Start:14-Nov-2018 Instruction Type:Provider Instructions for Treatment How to access health informa tion online Indication:Nonsmoker Start:14-Sep-2018 Instruction Type:Patient Education How to access health informa tion online - Detail Indication:Nonsmoker Start:14-Sep-2018 Instruction Type:Patient Education Patient Instructions Indication:Nonsmoker Start:14-Sep-2018 Instruction Type:Provider Instructions for Treatment How to access health informa tion online Indication:Nonsmoker Start:04-Jul-2018 Instruction Type:Patient Education Patient Instructions Indication:Nonsmoker Start:04-Jul-2018 Instruction Type:Provider Instructions for Treatment How to access health informa tion online Indication:BMI 27.0-27.9,adult Start:14-Jun-2018 Instruction Type:Patient Education How to access health informa tion online - Detail Indication:BMI 27.0-27.9,adult Start:14-Jun-2018 Instruction Type:Patient Education Patient Instructions Indication:BMI 27.0-27.9,adult Start:14-Jun-2018 Instruction Type:Provider Instructions for Treatment How to access health informa tion online Indication:Need for prophylactic vaccination and inoculation against influenza (Renamed from Need for immunization against influenza) Start:19-May-2018 Instruction Type:Patient Education How to access health informa tion online - Detail Indication:Need for prophylactic vaccination and inoculation against influenza (Renamed from Need for immunization against influenza) Start:19-May-2018 Instruction Type:Patient Education Patient Instructions Indication:Need for prophylactic vaccination and inoculation against influenza (Renamed from Need for immunization against influenza) Start:19-May-2018 Instruction Type:Provider Instructions for Treatment How to access health informa tion online Indication:Nonsmoker Start:16-Nov-2017 Instruction Type:Patient Education How to access health informa tion online - Detail Indication:Nonsmoker Start:16-Nov-2017 Instruction Type:Patient Education Patient Instructions Indication:Nonsmoker Start:16-Nov-2017 Instruction Type:Provider Instructions for Treatment How to access health informa tion online Indication:Nonsmoker Start:10-Nov-2017 Instruction Type:Patient Education How to access health informa tion online - Detail Indication:Nonsmoker Start:10-Nov-2017 Instruction Type:Patient Education Patient Instructions Indication:Nonsmoker Start:10-Nov-2017 Instruction Type:Provider Instructions for Treatment How to access health informa tion online Indication:Nonsmoker Start:02-Nov-2016 Instruction Type:Patient Education How to access health informa tion online - Detail Indication:Nonsmoker Start:02-Nov-2016 Instruction Type:Patient Education Patient Instructions Indication:Nonsmoker Start:02-Nov-2016 Instruction Type:Provider Instructions for Treatment How to access health informa tion online - Detail Indication:Bronchitis Start:08-Sep-2016 Instruction Type:Patient Education Patient Instructions Indication:Bronchitis Start:08-Sep-2016 Instruction Type:Provider Instructions for Treatment How to access health informa tion online Indication:Encounter for screening mammogram for breast cancer (Renamed from Encounter for screening mammogram for malignant neoplasm of breast) Start:19-May-2016 Instruction Type:Patient Education How to access health informa tion online - Detail Indication:Encounter for screening mammogram for breast cancer (Renamed from Encounter for screening mammogram for malignant neoplasm of breast) Start:19-May-2016 Instruction Type:Patient Education Patient Instructions Indication:Encounter for screening mammogram for breast cancer (Renamed from Encounter for screening mammogram for malignant neoplasm of breast) Start:19-May-2016 Instruction Type:Provider Instructions for Treatment Patient Instructions Indication:Acute bronchitis due to other specified organisms Start:07-May-2016 Instruction Type:Provider Instructions for Treatment How to access health informa tion online Indication:Cough Start:08-Apr-2016 Instruction Type:Patient Education How to access health informa tion online - Detail Indication:Cough Start:08-Apr-2016 Instruction Type:Patient Education Patient Instructions Indication:Cough Start:08-Apr-2016 Instruction Type:Provider Instructions for Treatment How to access health informa tion online Indication:Cough Start:31-Mar-2016 Instruction Type:Patient Education How to access health informa tion online - Detail Indication:Cough Start:31-Mar-2016 Instruction Type:Patient Education Patient Instructions Indication:Cough Start:31-Mar-2016 Instruction Type:Provider Instructions for Treatment How to access health informa tion online - Detail Indication:Cough Start:09-Dec-2015 Instruction Type:Patient Education Patient Instructions Indication:Cough Start:09-Dec-2015 Instruction Type:Provider Instructions for Treatment How to access health informa tion online Indication:Rash/skin eruption Start:23-Apr-2015 Instruction Type:Patient Education How to access health informa tion online - Detail Indication:Rash/skin eruption Start:23-Apr-2015 Instruction Type:Patient Education Patient Instructions Indication:Rash/skin eruption Start:23-Apr-2015 Instruction Type:Provider Instructions for Treatment Patient Instructions Indication:Rash/skin eruption Start:18-Mar-2015 Instruction Type:Provider Instructions for Treatment Patient Instructions Indication:Acute bronchitis Start:29-Oct-2014 Instruction Type:Provider Instructions for Treatment How to access health informa tion online Indication:GERD (gastroesophageal reflux disease) Start:10-Jul-2014 Instruction Type:Patient Education How to access health informa tion online - Detail Indication:GERD (gastroesophageal reflux disease) Start:10-Jul-2014 Instruction Type:Patient Education Patient Instructions Indication:GERD (gastroesophageal reflux disease) Start:10-Jul-2014 Instruction Type:Provider Instructions for Treatment Patient Instructions Indication:GERD (gastroesophageal reflux disease) Start:12-May-2013 Instruction Type:Provider Instructions for Treatment Name Dates Details How to access health informa tion online Indication:BMI 28.0-28.9,adult Start:18-Jul-2020 Instruction Type:Patient Education How to access health informa tion online - Detail Indication:BMI 28.0-28.9,adult Start:18-Jul-2020 Instruction Type:Patient Education Patient Instructions Indication:BMI 28.0-28.9,adult Start:18-Jul-2020 Instruction Type:Provider Instructions for Treatment How to access health informa tion online Indication:Nonsmoker Start:11-Jul-2020 Instruction Type:Patient Education How to access health informa tion online - Detail Indication:Nonsmoker Start:11-Jul-2020 Instruction Type:Patient Education Patient Instructions Indication:Nonsmoker Start:11-Jul-2020 Instruction Type:Provider Instructions for Treatment How to access health informa tion online Indication:BMI 27.0-27.9,adult Start:12-Jun-2020 Instruction Type:Patient Education How to access health informa tion online - Detail Indication:BMI 27.0-27.9,adult Start:12-Jun-2020 Instruction Type:Patient Education Patient Instructions Indication:BMI 27.0-27.9,adult Start:12-Jun-2020 Instruction Type:Provider Instructions for Treatment How to access health informa tion online Indication:BMI 27.0-27.9,adult Start:29-Apr-2020 Instruction Type:Patient Education How to access health informa tion online - Detail Indication:BMI 27.0-27.9,adult Start:29-Apr-2020 Instruction Type:Patient Education Patient Instructions Indication:BMI 27.0-27.9,adult Start:29-Apr-2020 Instruction Type:Provider Instructions for Treatment How to access health informa tion online Indication:Nonsmoker Start:21-Dec-2019 Instruction Type:Patient Education How to access health informa tion online - Detail Indication:Nonsmoker Start:21-Dec-2019 Instruction Type:Patient Education Patient Instructions Indication:Nonsmoker Start:21-Dec-2019 Instruction Type:Provider Instructions for Treatment How to access health informa tion online Indication:Nonsmoker Start:07-Dec-2019 Instruction Type:Patient Education How to access health informa tion online - Detail Indication:Nonsmoker Start:07-Dec-2019 Instruction Type:Patient Education Patient Instructions Indication:Nonsmoker Start:07-Dec-2019 Instruction Type:Provider Instructions for Treatment How to access health informa tion online Indication:BMI 27.0-27.9,adult Start:16-Nov-2019 Instruction Type:Patient Education How to access health informa tion online - Detail Indication:BMI 27.0-27.9,adult Start:16-Nov-2019 Instruction Type:Patient Education Patient Instructions Indication:BMI 27.0-27.9,adult Start:16-Nov-2019 Instruction Type:Provider Instructions for Treatment How to access health informa tion online Indication:BMI 28.0-28.9,adult Start:07-Sep-2019 Instruction Type:Patient Education How to access health informa tion online - Detail Indication:BMI 28.0-28.9,adult Start:07-Sep-2019 Instruction Type:Patient Education Patient Instructions Indication:Post-nasal drainage Start:07-Sep-2019 Instruction Type:Provider Instructions for Treatment How to access health informa tion online Indication:Hypertension, benign Start:17-May-2019 Instruction Type:Patient Education How to access health informa tion online - Detail Indication:Hypertension, benign Start:17-May-2019 Instruction Type:Patient Education Patient Instructions Indication:Hypertension, benign Start:17-May-2019 Instruction Type:Provider Instructions for Treatment How to access health informa tion online Indication:Nonsmoker Start:14-Nov-2018 Instruction Type:Patient Education How to access health informa tion online - Detail Indication:Nonsmoker Start:14-Nov-2018 Instruction Type:Patient Education Patient Instructions Indication:Nonsmoker Start:14-Nov-2018 Instruction Type:Provider Instructions for Treatment How to access health informa tion online Indication:Nonsmoker Start:14-Sep-2018 Instruction Type:Patient Education How to access health informa tion online - Detail Indication:Nonsmoker Start:14-Sep-2018 Instruction Type:Patient Education Patient Instructions Indication:Nonsmoker Start:14-Sep-2018 Instruction Type:Provider Instructions for Treatment How to access health informa tion online Indication:Nonsmoker Start:04-Jul-2018 Instruction Type:Patient Education Patient Instructions Indication:Nonsmoker Start:04-Jul-2018 Instruction Type:Provider Instructions for Treatment How to access health informa tion online Indication:BMI 27.0-27.9,adult Start:14-Jun-2018 Instruction Type:Patient Education How to access health informa tion online - Detail Indication:BMI 27.0-27.9,adult Start:14-Jun-2018 Instruction Type:Patient Education Patient Instructions Indication:BMI 27.0-27.9,adult Start:14-Jun-2018 Instruction Type:Provider Instructions for Treatment How to access health informa tion online Indication:Need for prophylactic vaccination and inoculation against influenza (Renamed from Need for immunization against influenza) Start:19-May-2018 Instruction Type:Patient Education How to access health informa tion online - Detail Indication:Need for prophylactic vaccination and inoculation against influenza (Renamed from Need for immunization against influenza) Start:19-May-2018 Instruction Type:Patient Education Patient Instructions Indication:Need for prophylactic vaccination and inoculation against influenza (Renamed from Need for immunization against influenza) Start:19-May-2018 Instruction Type:Provider Instructions for Treatment How to access health informa tion online Indication:Nonsmoker Start:16-Nov-2017 Instruction Type:Patient Education How to access health informa tion online - Detail Indication:Nonsmoker Start:16-Nov-2017 Instruction Type:Patient Education Patient Instructions Indication:Nonsmoker Start:16-Nov-2017 Instruction Type:Provider Instructions for Treatment How to access health informa tion online Indication:Nonsmoker Start:10-Nov-2017 Instruction Type:Patient Education How to access health informa tion online - Detail Indication:Nonsmoker Start:10-Nov-2017 Instruction Type:Patient Education Patient Instructions Indication:Nonsmoker Start:10-Nov-2017 Instruction Type:Provider Instructions for Treatment How to access health informa tion online Indication:Nonsmoker Start:02-Nov-2016 Instruction Type:Patient Education How to access health informa tion online - Detail Indication:Nonsmoker Start:02-Nov-2016 Instruction Type:Patient Education Patient Instructions Indication:Nonsmoker Start:02-Nov-2016 Instruction Type:Provider Instructions for Treatment How to access health informa tion online - Detail Indication:Bronchitis Start:08-Sep-2016 Instruction Type:Patient Education Patient Instructions Indication:Bronchitis Start:08-Sep-2016 Instruction Type:Provider Instructions for Treatment How to access health informa tion online Indication:Encounter for screening mammogram for breast cancer (Renamed from Encounter for screening mammogram for malignant neoplasm of breast) Start:19-May-2016 Instruction Type:Patient Education How to access health informa tion online - Detail Indication:Encounter for screening mammogram for breast cancer (Renamed from Encounter for screening mammogram for malignant neoplasm of breast) Start:19-May-2016 Instruction Type:Patient Education Patient Instructions Indication:Encounter for screening mammogram for breast cancer (Renamed from Encounter for screening mammogram for malignant neoplasm of breast) Start:19-May-2016 Instruction Type:Provider Instructions for Treatment Patient Instructions Indication:Acute bronchitis due to other specified organisms Start:07-May-2016 Instruction Type:Provider Instructions for Treatment How to access health informa tion online Indication:Cough Start:08-Apr-2016 Instruction Type:Patient Education How to access health informa tion online - Detail Indication:Cough Start:08-Apr-2016 Instruction Type:Patient Education Patient Instructions Indication:Cough Start:08-Apr-2016 Instruction Type:Provider Instructions for Treatment How to access health informa tion online Indication:Cough Start:31-Mar-2016 Instruction Type:Patient Education How to access health informa tion online - Detail Indication:Cough Start:31-Mar-2016 Instruction Type:Patient Education Patient Instructions Indication:Cough Start:31-Mar-2016 Instruction Type:Provider Instructions for Treatment How to access health informa tion online - Detail Indication:Cough Start:09-Dec-2015 Instruction Type:Patient Education Patient Instructions Indication:Cough Start:09-Dec-2015 Instruction Type:Provider Instructions for Treatment How to access health informa tion online Indication:Rash/skin eruption Start:23-Apr-2015 Instruction Type:Patient Education How to access health informa tion online - Detail Indication:Rash/skin eruption Start:23-Apr-2015 Instruction Type:Patient Education Patient Instructions Indication:Rash/skin eruption Start:23-Apr-2015 Instruction Type:Provider Instructions for Treatment Patient Instructions Indication:Rash/skin eruption Start:18-Mar-2015 Instruction Type:Provider Instructions for Treatment Patient Instructions Indication:Acute bronchitis Start:29-Oct-2014 Instruction Type:Provider Instructions for Treatment How to access health informa tion online Indication:GERD (gastroesophageal reflux disease) Start:10-Jul-2014 Instruction Type:Patient Education How to access health informa tion online - Detail Indication:GERD (gastroesophageal reflux disease) Start:10-Jul-2014 Instruction Type:Patient Education Patient Instructions Indication:GERD (gastroesophageal reflux disease) Start:10-Jul-2014 Instruction Type:Provider Instructions for Treatment Patient Instructions Indication:GERD (gastroesophageal reflux disease) Start:12-May-2013 Instruction Type:Provider Instructions for Treatment Name Dates Details How to access health informa tion online Indication:BMI 28.0-28.9,adult Start:18-Jul-2020 Instruction Type:Patient Education How to access health informa tion online - Detail Indication:BMI 28.0-28.9,adult Start:18-Jul-2020 Instruction Type:Patient Education Patient Instructions Indication:BMI 28.0-28.9,adult Start:18-Jul-2020 Instruction Type:Provider Instructions for Treatment How to access health informa tion online Indication:Nonsmoker Start:11-Jul-2020 Instruction Type:Patient Education How to access health informa tion online - Detail Indication:Nonsmoker Start:11-Jul-2020 Instruction Type:Patient Education Patient Instructions Indication:Nonsmoker Start:11-Jul-2020 Instruction Type:Provider Instructions for Treatment How to access health informa tion online Indication:BMI 27.0-27.9,adult Start:12-Jun-2020 Instruction Type:Patient Education How to access health informa tion online - Detail Indication:BMI 27.0-27.9,adult Start:12-Jun-2020 Instruction Type:Patient Education Patient Instructions Indication:BMI 27.0-27.9,adult Start:12-Jun-2020 Instruction Type:Provider Instructions for Treatment How to access health informa tion online Indication:BMI 27.0-27.9,adult Start:29-Apr-2020 Instruction Type:Patient Education How to access health informa tion online - Detail Indication:BMI 27.0-27.9,adult Start:29-Apr-2020 Instruction Type:Patient Education Patient Instructions Indication:BMI 27.0-27.9,adult Start:29-Apr-2020 Instruction Type:Provider Instructions for Treatment How to access health informa tion online Indication:Nonsmoker Start:21-Dec-2019 Instruction Type:Patient Education How to access health informa tion online - Detail Indication:Nonsmoker Start:21-Dec-2019 Instruction Type:Patient Education Patient Instructions Indication:Nonsmoker Start:21-Dec-2019 Instruction Type:Provider Instructions for Treatment How to access health informa tion online Indication:Nonsmoker Start:07-Dec-2019 Instruction Type:Patient Education How to access health informa tion online - Detail Indication:Nonsmoker Start:07-Dec-2019 Instruction Type:Patient Education Patient Instructions Indication:Nonsmoker Start:07-Dec-2019 Instruction Type:Provider Instructions for Treatment How to access health informa tion online Indication:BMI 27.0-27.9,adult Start:16-Nov-2019 Instruction Type:Patient Education How to access health informa tion online - Detail Indication:BMI 27.0-27.9,adult Start:16-Nov-2019 Instruction Type:Patient Education Patient Instructions Indication:BMI 27.0-27.9,adult Start:16-Nov-2019 Instruction Type:Provider Instructions for Treatment How to access health informa tion online Indication:BMI 28.0-28.9,adult Start:07-Sep-2019 Instruction Type:Patient Education How to access health informa tion online - Detail Indication:BMI 28.0-28.9,adult Start:07-Sep-2019 Instruction Type:Patient Education Patient Instructions Indication:Post-nasal drainage Start:07-Sep-2019 Instruction Type:Provider Instructions for Treatment How to access health informa tion online Indication:Hypertension, benign Start:17-May-2019 Instruction Type:Patient Education How to access health informa tion online - Detail Indication:Hypertension, benign Start:17-May-2019 Instruction Type:Patient Education Patient Instructions Indication:Hypertension, benign Start:17-May-2019 Instruction Type:Provider Instructions for Treatment How to access health informa tion online Indication:Nonsmoker Start:14-Nov-2018 Instruction Type:Patient Education How to access health informa tion online - Detail Indication:Nonsmoker Start:14-Nov-2018 Instruction Type:Patient Education Patient Instructions Indication:Nonsmoker Start:14-Nov-2018 Instruction Type:Provider Instructions for Treatment How to access health informa tion online Indication:Nonsmoker Start:14-Sep-2018 Instruction Type:Patient Education How to access health informa tion online - Detail Indication:Nonsmoker Start:14-Sep-2018 Instruction Type:Patient Education Patient Instructions Indication:Nonsmoker Start:14-Sep-2018 Instruction Type:Provider Instructions for Treatment How to access health informa tion online Indication:Nonsmoker Start:04-Jul-2018 Instruction Type:Patient Education Patient Instructions Indication:Nonsmoker Start:04-Jul-2018 Instruction Type:Provider Instructions for Treatment How to access health informa tion online Indication:BMI 27.0-27.9,adult Start:14-Jun-2018 Instruction Type:Patient Education How to access health informa tion online - Detail Indication:BMI 27.0-27.9,adult Start:14-Jun-2018 Instruction Type:Patient Education Patient Instructions Indication:BMI 27.0-27.9,adult Start:14-Jun-2018 Instruction Type:Provider Instructions for Treatment How to access health informa tion online Indication:Need for prophylactic vaccination and inoculation against influenza (Renamed from Need for immunization against influenza) Start:19-May-2018 Instruction Type:Patient Education How to access health informa tion online - Detail Indication:Need for prophylactic vaccination and inoculation against influenza (Renamed from Need for immunization against influenza) Start:19-May-2018 Instruction Type:Patient Education Patient Instructions Indication:Need for prophylactic vaccination and inoculation against influenza (Renamed from Need for immunization against influenza) Start:19-May-2018 Instruction Type:Provider Instructions for Treatment How to access health informa tion online Indication:Nonsmoker Start:16-Nov-2017 Instruction Type:Patient Education How to access health informa tion online - Detail Indication:Nonsmoker Start:16-Nov-2017 Instruction Type:Patient Education Patient Instructions Indication:Nonsmoker Start:16-Nov-2017 Instruction Type:Provider Instructions for Treatment How to access health informa tion online Indication:Nonsmoker Start:10-Nov-2017 Instruction Type:Patient Education How to access health informa tion online - Detail Indication:Nonsmoker Start:10-Nov-2017 Instruction Type:Patient Education Patient Instructions Indication:Nonsmoker Start:10-Nov-2017 Instruction Type:Provider Instructions for Treatment How to access health informa tion online Indication:Nonsmoker Start:02-Nov-2016 Instruction Type:Patient Education How to access health informa tion online - Detail Indication:Nonsmoker Start:02-Nov-2016 Instruction Type:Patient Education Patient Instructions Indication:Nonsmoker Start:02-Nov-2016 Instruction Type:Provider Instructions for Treatment How to access health informa tion online - Detail Indication:Bronchitis Start:08-Sep-2016 Instruction Type:Patient Education Patient Instructions Indication:Bronchitis Start:08-Sep-2016 Instruction Type:Provider Instructions for Treatment How to access health informa tion online Indication:Encounter for screening mammogram for breast cancer (Renamed from Encounter for screening mammogram for malignant neoplasm of breast) Start:19-May-2016 Instruction Type:Patient Education How to access health informa tion online - Detail Indication:Encounter for screening mammogram for breast cancer (Renamed from Encounter for screening mammogram for malignant neoplasm of breast) Start:19-May-2016 Instruction Type:Patient Education Patient Instructions Indication:Encounter for screening mammogram for breast cancer (Renamed from Encounter for screening mammogram for malignant neoplasm of breast) Start:19-May-2016 Instruction Type:Provider Instructions for Treatment Patient Instructions Indication:Acute bronchitis due to other specified organisms Start:07-May-2016 Instruction Type:Provider Instructions for Treatment How to access health informa tion online Indication:Cough Start:08-Apr-2016 Instruction Type:Patient Education How to access health informa tion online - Detail Indication:Cough Start:08-Apr-2016 Instruction Type:Patient Education Patient Instructions Indication:Cough Start:08-Apr-2016 Instruction Type:Provider Instructions for Treatment How to access health informa tion online Indication:Cough Start:31-Mar-2016 Instruction Type:Patient Education How to access health informa tion online - Detail Indication:Cough Start:31-Mar-2016 Instruction Type:Patient Education Patient Instructions Indication:Cough Start:31-Mar-2016 Instruction Type:Provider Instructions for Treatment How to access health informa tion online - Detail Indication:Cough Start:09-Dec-2015 Instruction Type:Patient Education Patient Instructions Indication:Cough Start:09-Dec-2015 Instruction Type:Provider Instructions for Treatment How to access health informa tion online Indication:Rash/skin eruption Start:23-Apr-2015 Instruction Type:Patient Education How to access health informa tion online - Detail Indication:Rash/skin eruption Start:23-Apr-2015 Instruction Type:Patient Education Patient Instructions Indication:Rash/skin eruption Start:23-Apr-2015 Instruction Type:Provider Instructions for Treatment Patient Instructions Indication:Rash/skin eruption Start:18-Mar-2015 Instruction Type:Provider Instructions for Treatment Patient Instructions Indication:Acute bronchitis Start:29-Oct-2014 Instruction Type:Provider Instructions for Treatment How to access health informa tion online Indication:GERD (gastroesophageal reflux disease) Start:10-Jul-2014 Instruction Type:Patient Education How to access health informa tion online - Detail Indication:GERD (gastroesophageal reflux disease) Start:10-Jul-2014 Instruction Type:Patient Education Patient Instructions Indication:GERD (gastroesophageal reflux disease) Start:10-Jul-2014 Instruction Type:Provider Instructions for Treatment Patient Instructions Indication:GERD (gastroesophageal reflux disease) Start:12-May-2013 Instruction Type:Provider Instructions for Treatment Name Dates Details How to access health informa tion online Indication:BMI 28.0-28.9,adult Start:18-Jul-2020 Instruction Type:Patient Education How to access health informa tion online - Detail Indication:BMI 28.0-28.9,adult Start:18-Jul-2020 Instruction Type:Patient Education Patient Instructions Indication:BMI 28.0-28.9,adult Start:18-Jul-2020 Instruction Type:Provider Instructions for Treatment How to access health informa tion online Indication:Nonsmoker Start:11-Jul-2020 Instruction Type:Patient Education How to access health informa tion online - Detail Indication:Nonsmoker Start:11-Jul-2020 Instruction Type:Patient Education Patient Instructions Indication:Nonsmoker Start:11-Jul-2020 Instruction Type:Provider Instructions for Treatment How to access health informa tion online Indication:BMI 27.0-27.9,adult Start:12-Jun-2020 Instruction Type:Patient Education How to access health informa tion online - Detail Indication:BMI 27.0-27.9,adult Start:12-Jun-2020 Instruction Type:Patient Education Patient Instructions Indication:BMI 27.0-27.9,adult Start:12-Jun-2020 Instruction Type:Provider Instructions for Treatment How to access health informa tion online Indication:BMI 27.0-27.9,adult Start:29-Apr-2020 Instruction Type:Patient Education How to access health informa tion online - Detail Indication:BMI 27.0-27.9,adult Start:29-Apr-2020 Instruction Type:Patient Education Patient Instructions Indication:BMI 27.0-27.9,adult Start:29-Apr-2020 Instruction Type:Provider Instructions for Treatment How to access health informa tion online Indication:Nonsmoker Start:21-Dec-2019 Instruction Type:Patient Education How to access health informa tion online - Detail Indication:Nonsmoker Start:21-Dec-2019 Instruction Type:Patient Education Patient Instructions Indication:Nonsmoker Start:21-Dec-2019 Instruction Type:Provider Instructions for Treatment How to access health informa tion online Indication:Nonsmoker Start:07-Dec-2019 Instruction Type:Patient Education How to access health informa tion online - Detail Indication:Nonsmoker Start:07-Dec-2019 Instruction Type:Patient Education Patient Instructions Indication:Nonsmoker Start:07-Dec-2019 Instruction Type:Provider Instructions for Treatment How to access health informa tion online Indication:BMI 27.0-27.9,adult Start:16-Nov-2019 Instruction Type:Patient Education How to access health informa tion online - Detail Indication:BMI 27.0-27.9,adult Start:16-Nov-2019 Instruction Type:Patient Education Patient Instructions Indication:BMI 27.0-27.9,adult Start:16-Nov-2019 Instruction Type:Provider Instructions for Treatment How to access health informa tion online Indication:BMI 28.0-28.9,adult Start:07-Sep-2019 Instruction Type:Patient Education How to access health informa tion online - Detail Indication:BMI 28.0-28.9,adult Start:07-Sep-2019 Instruction Type:Patient Education Patient Instructions Indication:Post-nasal drainage Start:07-Sep-2019 Instruction Type:Provider Instructions for Treatment How to access health informa tion online Indication:Hypertension, benign Start:17-May-2019 Instruction Type:Patient Education How to access health informa tion online - Detail Indication:Hypertension, benign Start:17-May-2019 Instruction Type:Patient Education Patient Instructions Indication:Hypertension, benign Start:17-May-2019 Instruction Type:Provider Instructions for Treatment How to access health informa tion online Indication:Nonsmoker Start:14-Nov-2018 Instruction Type:Patient Education How to access health informa tion online - Detail Indication:Nonsmoker Start:14-Nov-2018 Instruction Type:Patient Education Patient Instructions Indication:Nonsmoker Start:14-Nov-2018 Instruction Type:Provider Instructions for Treatment How to access health informa tion online Indication:Nonsmoker Start:14-Sep-2018 Instruction Type:Patient Education How to access health informa tion online - Detail Indication:Nonsmoker Start:14-Sep-2018 Instruction Type:Patient Education Patient Instructions Indication:Nonsmoker Start:14-Sep-2018 Instruction Type:Provider Instructions for Treatment How to access health informa tion online Indication:Nonsmoker Start:04-Jul-2018 Instruction Type:Patient Education Patient Instructions Indication:Nonsmoker Start:04-Jul-2018 Instruction Type:Provider Instructions for Treatment How to access health informa tion online Indication:BMI 27.0-27.9,adult Start:14-Jun-2018 Instruction Type:Patient Education How to access health informa tion online - Detail Indication:BMI 27.0-27.9,adult Start:14-Jun-2018 Instruction Type:Patient Education Patient Instructions Indication:BMI 27.0-27.9,adult Start:14-Jun-2018 Instruction Type:Provider Instructions for Treatment How to access health informa tion online Indication:Need for prophylactic vaccination and inoculation against influenza (Renamed from Need for immunization against influenza) Start:19-May-2018 Instruction Type:Patient Education How to access health informa tion online - Detail Indication:Need for prophylactic vaccination and inoculation against influenza (Renamed from Need for immunization against influenza) Start:19-May-2018 Instruction Type:Patient Education Patient Instructions Indication:Need for prophylactic vaccination and inoculation against influenza (Renamed from Need for immunization against influenza) Start:19-May-2018 Instruction Type:Provider Instructions for Treatment How to access health informa tion online Indication:Nonsmoker Start:16-Nov-2017 Instruction Type:Patient Education How to access health informa tion online - Detail Indication:Nonsmoker Start:16-Nov-2017 Instruction Type:Patient Education Patient Instructions Indication:Nonsmoker Start:16-Nov-2017 Instruction Type:Provider Instructions for Treatment How to access health informa tion online Indication:Nonsmoker Start:10-Nov-2017 Instruction Type:Patient Education How to access health informa tion online - Detail Indication:Nonsmoker Start:10-Nov-2017 Instruction Type:Patient Education Patient Instructions Indication:Nonsmoker Start:10-Nov-2017 Instruction Type:Provider Instructions for Treatment How to access health informa tion online Indication:Nonsmoker Start:02-Nov-2016 Instruction Type:Patient Education How to access health informa tion online - Detail Indication:Nonsmoker Start:02-Nov-2016 Instruction Type:Patient Education Patient Instructions Indication:Nonsmoker Start:02-Nov-2016 Instruction Type:Provider Instructions for Treatment How to access health informa tion online - Detail Indication:Bronchitis Start:08-Sep-2016 Instruction Type:Patient Education Patient Instructions Indication:Bronchitis Start:08-Sep-2016 Instruction Type:Provider Instructions for Treatment How to access health informa tion online Indication:Encounter for screening mammogram for breast cancer (Renamed from Encounter for screening mammogram for malignant neoplasm of breast) Start:19-May-2016 Instruction Type:Patient Education How to access health informa tion online - Detail Indication:Encounter for screening mammogram for breast cancer (Renamed from Encounter for screening mammogram for malignant neoplasm of breast) Start:19-May-2016 Instruction Type:Patient Education Patient Instructions Indication:Encounter for screening mammogram for breast cancer (Renamed from Encounter for screening mammogram for malignant neoplasm of breast) Start:19-May-2016 Instruction Type:Provider Instructions for Treatment Patient Instructions Indication:Acute bronchitis due to other specified organisms Start:07-May-2016 Instruction Type:Provider Instructions for Treatment How to access health informa tion online Indication:Cough Start:08-Apr-2016 Instruction Type:Patient Education How to access health informa tion online - Detail Indication:Cough Start:08-Apr-2016 Instruction Type:Patient Education Patient Instructions Indication:Cough Start:08-Apr-2016 Instruction Type:Provider Instructions for Treatment How to access health informa tion online Indication:Cough Start:31-Mar-2016 Instruction Type:Patient Education How to access health informa tion online - Detail Indication:Cough Start:31-Mar-2016 Instruction Type:Patient Education Patient Instructions Indication:Cough Start:31-Mar-2016 Instruction Type:Provider Instructions for Treatment How to access health informa tion online - Detail Indication:Cough Start:09-Dec-2015 Instruction Type:Patient Education Patient Instructions Indication:Cough Start:09-Dec-2015 Instruction Type:Provider Instructions for Treatment How to access health informa tion online Indication:Rash/skin eruption Start:23-Apr-2015 Instruction Type:Patient Education How to access health informa tion online - Detail Indication:Rash/skin eruption Start:23-Apr-2015 Instruction Type:Patient Education Patient Instructions Indication:Rash/skin eruption Start:23-Apr-2015 Instruction Type:Provider Instructions for Treatment Patient Instructions Indication:Rash/skin eruption Start:18-Mar-2015 Instruction Type:Provider Instructions for Treatment Patient Instructions Indication:Acute bronchitis Start:29-Oct-2014 Instruction Type:Provider Instructions for Treatment How to access health informa tion online Indication:GERD (gastroesophageal reflux disease) Start:10-Jul-2014 Instruction Type:Patient Education How to access health informa tion online - Detail Indication:GERD (gastroesophageal reflux disease) Start:10-Jul-2014 Instruction Type:Patient Education Patient Instructions Indication:GERD (gastroesophageal reflux disease) Start:10-Jul-2014 Instruction Type:Provider Instructions for Treatment Patient Instructions Indication:GERD (gastroesophageal reflux disease) Start:12-May-2013 Instruction Type:Provider Instructions for Treatment Name Dates Details Nonsmoker : How to access he alth information online Indication:Nonsmoker Nonsmoker : How to access he alth information online - Detail Indication:Nonsmoker Nonsmoker : Patient Instruct ions Indication:Nonsmoker BMI 27.0-27.9,adult : How to access health information online Indication:BMI 27.0-27.9,adult BMI 27.0-27.9,adult : How to access health information online - Detail Indication:BMI 27.0-27.9,adult BMI 27.0-27.9,adult : Patien t Instructions Indication:BMI 27.0-27.9,adult Need for prophylactic vaccin ation and inoculation against influenza (Renamed from Need for immunization against influenza) : How to access health information online Indication:Need for prophylactic vaccination and inoculation against influenza (Renamed from Need for immunization against influenza) Need for prophylactic vaccin ation and inoculation against influenza (Renamed from Need for immunization against influenza) : How to access health information online - Detail Indication:Need for prophylactic vaccination and inoculation against influenza (Renamed from Need for immunization against influenza) Need for prophylactic vaccin ation and inoculation against influenza (Renamed from Need for immunization against influenza) : Patient Instructions Indication:Need for prophylactic vaccination and inoculation against influenza (Renamed from Need for immunization against influenza) Bronchitis : [facility] - Detail Indication:Bronchitis Bronchitis : Patient Instruc tions Indication:Bronchitis Encounter for screening mamm ogram for breast cancer (Renamed from Encounter for screening mammogram for malignant neoplasm of breast) : How to access health information online Indication:Encounter for screening mammogram for breast cancer (Renamed from Encounter for screening mammogram for malignant neoplasm of breast) Encounter for screening mamm ogram for breast cancer (Renamed from Encounter for screening mammogram for malignant neoplasm of breast) : How to access health information online - Detail Indication:Encounter for screening mammogram for breast cancer (Renamed from Encounter for screening mammogram for malignant neoplasm of breast) Encounter for screening mamm ogram for breast cancer (Renamed from Encounter for screening mammogram for malignant neoplasm of breast) : Patient Instructions Indication:Encounter for screening mammogram for breast cancer (Renamed from Encounter for screening mammogram for malignant neoplasm of breast) Acute bronchitis due to othe r specified organisms : Patient Instructions Indication:Acute bronchitis due to other specified organisms Cough : How to access health information online Indication:Cough Cough : How to access health information online - Detail Indication:Cough Cough : Patient Instructions Indication:Cough Rash/skin eruption : How to access health information online Indication:Rash/skin eruption Rash/skin eruption : How to access health information online - Detail Indication:Rash/skin eruption Rash/skin eruption : Patient Instructions Indication:Rash/skin eruption Acute bronchitis : Patient I nstructions Indication:Acute bronchitis GERD (gastroesophageal reflu x disease) : How to access health information online Indication:GERD (gastroesophageal reflux disease) GERD (gastroesophageal reflu x disease) : How to access health information online - Detail Indication:GERD (gastroesophageal reflux disease) GERD (gastroesophageal reflu x disease) : Patient Instructions Indication:GERD (gastroesophageal reflux disease) Name Dates Details How to access [employer] [facility] online Indication:BMI 28.0-28.9,adult Start:18-Jul-2020 Instruction Type:Patient Education How to access [facility] [facility] online - Detail Indication:BMI 28.0-28.9,adult Start:18-Jul-2020 Instruction Type:Patient Education Patient Instructions Indication:BMI 28.0-28.9,adult Start:18-Jul-2020 Instruction Type:Provider Instructions for Treatment How to access health informa tion online Indication:Nonsmoker Start:11-Jul-2020 Instruction Type:Patient Education How to access health informa tion online - Detail Indication:Nonsmoker Start:11-Jul-2020 Instruction Type:Patient Education Patient Instructions Indication:Nonsmoker Start:11-Jul-2020 Instruction Type:Provider Instructions for Treatment How to access health informa tion online Indication:BMI 27.0-27.9,adult Start:12-Jun-2020 Instruction Type:Patient Education How to access health informa tion online - Detail Indication:BMI 27.0-27.9,adult Start:12-Jun-2020 Instruction Type:Patient Education Patient Instructions Indication:BMI 27.0-27.9,adult Start:12-Jun-2020 Instruction Type:Provider Instructions for Treatment How to access health informa tion online Indication:BMI 27.0-27.9,adult Start:29-Apr-2020 Instruction Type:Patient Education How to access health informa tion online - Detail Indication:BMI 27.0-27.9,adult Start:29-Apr-2020 Instruction Type:Patient Education Patient Instructions Indication:BMI 27.0-27.9,adult Start:29-Apr-2020 Instruction Type:Provider Instructions for Treatment How to access health informa tion online Indication:Nonsmoker Start:21-Dec-2019 Instruction Type:Patient Education How to access health informa tion online - Detail Indication:Nonsmoker Start:21-Dec-2019 Instruction Type:Patient Education Patient Instructions Indication:Nonsmoker Start:21-Dec-2019 Instruction Type:Provider Instructions for Treatment How to access health informa tion online Indication:Nonsmoker Start:07-Dec-2019 Instruction Type:Patient Education How to access health informa tion online - Detail Indication:Nonsmoker Start:07-Dec-2019 Instruction Type:Patient Education Patient Instructions Indication:Nonsmoker Start:07-Dec-2019 Instruction Type:Provider Instructions for Treatment How to access health informa tion online Indication:BMI 27.0-27.9,adult Start:16-Nov-2019 Instruction Type:Patient Education How to access health informa tion online - Detail Indication:BMI 27.0-27.9,adult Start:16-Nov-2019 Instruction Type:Patient Education Patient Instructions Indication:BMI 27.0-27.9,adult Start:16-Nov-2019 Instruction Type:Provider Instructions for Treatment How to access health informa tion online Indication:BMI 28.0-28.9,adult Start:07-Sep-2019 Instruction Type:Patient Education How to access health informa tion online - Detail Indication:BMI 28.0-28.9,adult Start:07-Sep-2019 Instruction Type:Patient Education Patient Instructions Indication:Post-nasal drainage Start:07-Sep-2019 Instruction Type:Provider Instructions for Treatment How to access health informa tion online Indication:Hypertension, benign Start:17-May-2019 Instruction Type:Patient Education How to access health informa tion online - Detail Indication:Hypertension, benign Start:17-May-2019 Instruction Type:Patient Education Patient Instructions Indication:Hypertension, benign Start:17-May-2019 Instruction Type:Provider Instructions for Treatment How to access health informa tion online Indication:Nonsmoker Start:14-Nov-2018 Instruction Type:Patient Education How to access health informa tion online - Detail Indication:Nonsmoker Start:14-Nov-2018 Instruction Type:Patient Education Patient Instructions Indication:Nonsmoker Start:14-Nov-2018 Instruction Type:Provider Instructions for Treatment How to access health informa tion online Indication:Nonsmoker Start:14-Sep-2018 Instruction Type:Patient Education How to access health informa tion online - Detail Indication:Nonsmoker Start:14-Sep-2018 Instruction Type:Patient Education Patient Instructions Indication:Nonsmoker Start:14-Sep-2018 Instruction Type:Provider Instructions for Treatment How to access health informa tion online Indication:Nonsmoker Start:04-Jul-2018 Instruction Type:Patient Education Patient Instructions Indication:Nonsmoker Start:04-Jul-2018 Instruction Type:Provider Instructions for Treatment How to access health informa tion online Indication:BMI 27.0-27.9,adult Start:14-Jun-2018 Instruction Type:Patient Education How to access health informa tion online - Detail Indication:BMI 27.0-27.9,adult Start:14-Jun-2018 Instruction Type:Patient Education Patient Instructions Indication:BMI 27.0-27.9,adult Start:14-Jun-2018 Instruction Type:Provider Instructions for Treatment How to access health informa tion online Indication:Need for prophylactic vaccination and inoculation against influenza (Renamed from Need for immunization against influenza) Start:19-May-2018 Instruction Type:Patient Education How to access health informa tion online - Detail Indication:Need for prophylactic vaccination and inoculation against influenza (Renamed from Need for immunization against influenza) Start:19-May-2018 Instruction Type:Patient Education Patient Instructions Indication:Need for prophylactic vaccination and inoculation against influenza (Renamed from Need for immunization against influenza) Start:19-May-2018 Instruction Type:Provider Instructions for Treatment How to access health informa tion online Indication:Nonsmoker Start:16-Nov-2017 Instruction Type:Patient Education How to access health informa tion online - Detail Indication:Nonsmoker Start:16-Nov-2017 Instruction Type:Patient Education Patient Instructions Indication:Nonsmoker Start:16-Nov-2017 Instruction Type:Provider Instructions for Treatment How to access health informa tion online Indication:Nonsmoker Start:10-Nov-2017 Instruction Type:Patient Education How to access health informa tion online - Detail Indication:Nonsmoker Start:10-Nov-2017 Instruction Type:Patient Education Patient Instructions Indication:Nonsmoker Start:10-Nov-2017 Instruction Type:Provider Instructions for Treatment How to access health informa tion online Indication:Nonsmoker Start:02-Nov-2016 Instruction Type:Patient Education How to access health informa tion online - Detail Indication:Nonsmoker Start:02-Nov-2016 Instruction Type:Patient Education Patient Instructions Indication:Nonsmoker Start:02-Nov-2016 Instruction Type:Provider Instructions for Treatment How to access health informa tion online - Detail Indication:Bronchitis Start:08-Sep-2016 Instruction Type:Patient Education Patient Instructions Indication:Bronchitis Start:08-Sep-2016 Instruction Type:Provider Instructions for Treatment How to access health informa tion online Indication:Encounter for screening mammogram for breast cancer (Renamed from Encounter for screening mammogram for malignant neoplasm of breast) Start:19-May-2016 Instruction Type:Patient Education How to access health informa tion online - Detail Indication:Encounter for screening mammogram for breast cancer (Renamed from Encounter for screening mammogram for malignant neoplasm of breast) Start:19-May-2016 Instruction Type:Patient Education Patient Instructions Indication:Encounter for screening mammogram for breast cancer (Renamed from Encounter for screening mammogram for malignant neoplasm of breast) Start:19-May-2016 Instruction Type:Provider Instructions for Treatment Patient Instructions Indication:Acute bronchitis due to other specified organisms Start:07-May-2016 Instruction Type:Provider Instructions for Treatment How to access health informa tion online Indication:Cough Start:08-Apr-2016 Instruction Type:Patient Education How to access health informa tion online - Detail Indication:Cough Start:08-Apr-2016 Instruction Type:Patient Education Patient Instructions Indication:Cough Start:08-Apr-2016 Instruction Type:Provider Instructions for Treatment How to access health informa tion online Indication:Cough Start:31-Mar-2016 Instruction Type:Patient Education How to access health informa tion online - Detail Indication:Cough Start:31-Mar-2016 Instruction Type:Patient Education Patient Instructions Indication:Cough Start:31-Mar-2016 Instruction Type:Provider Instructions for Treatment How to access health informa tion online - Detail Indication:Cough Start:09-Dec-2015 Instruction Type:Patient Education Patient Instructions Indication:Cough Start:09-Dec-2015 Instruction Type:Provider Instructions for Treatment How to access health informa tion online Indication:Rash/skin eruption Start:23-Apr-2015 Instruction Type:Patient Education How to access health informa tion online - Detail Indication:Rash/skin eruption Start:23-Apr-2015 Instruction Type:Patient Education Patient Instructions Indication:Rash/skin eruption Start:23-Apr-2015 Instruction Type:Provider Instructions for Treatment Patient Instructions Indication:Rash/skin eruption Start:18-Mar-2015 Instruction Type:Provider Instructions for Treatment Patient Instructions Indication:Acute bronchitis Start:29-Oct-2014 Instruction Type:Provider Instructions for Treatment How to access health informa tion online Indication:GERD (gastroesophageal reflux disease) Start:10-Jul-2014 Instruction Type:Patient Education How to access health informa tion online - Detail Indication:GERD (gastroesophageal reflux disease) Start:10-Jul-2014 Instruction Type:Patient Education Patient Instructions Indication:GERD (gastroesophageal reflux disease) Start:10-Jul-2014 Instruction Type:Provider Instructions for Treatment Patient Instructions Indication:GERD (gastroesophageal reflux disease) Start:12-May-2013 Instruction Type:Provider Instructions for Treatment Name Dates Details How to access health informa tion online Indication:Hypertension, benign Start:17-May-2019 Instruction Type:Patient Education How to access health informa tion online - Detail Indication:Hypertension, benign Start:17-May-2019 Instruction Type:Patient Education Patient Instructions Indication:Hypertension, benign Start:17-May-2019 Instruction Type:Provider Instructions for Treatment How to access health informa tion online Indication:Nonsmoker Start:14-Nov-2018 Instruction Type:Patient Education How to access health informa tion online - Detail Indication:Nonsmoker Start:14-Nov-2018 Instruction Type:Patient Education Patient Instructions Indication:Nonsmoker Start:14-Nov-2018 Instruction Type:Provider Instructions for Treatment How to access health informa tion online Indication:Nonsmoker Start:14-Sep-2018 Instruction Type:Patient Education How to access health informa tion online - Detail Indication:Nonsmoker Start:14-Sep-2018 Instruction Type:Patient Education Patient Instructions Indication:Nonsmoker Start:14-Sep-2018 Instruction Type:Provider Instructions for Treatment How to access health informa tion online Indication:Nonsmoker Start:04-Jul-2018 Instruction Type:Patient Education Patient Instructions Indication:Nonsmoker Start:04-Jul-2018 Instruction Type:Provider Instructions for Treatment How to access health informa tion online Indication:BMI 27.0-27.9,adult Start:14-Jun-2018 Instruction Type:Patient Education How to access health informa tion online - Detail Indication:BMI 27.0-27.9,adult Start:14-Jun-2018 Instruction Type:Patient Education Patient Instructions Indication:BMI 27.0-27.9,adult Start:14-Jun-2018 Instruction Type:Provider Instructions for Treatment How to access health informa tion online Indication:Need for prophylactic vaccination and inoculation against influenza (Renamed from Need for immunization against influenza) Start:19-May-2018 Instruction Type:Patient Education How to access health informa tion online - Detail Indication:Need for prophylactic vaccination and inoculation against influenza (Renamed from Need for immunization against influenza) Start:19-May-2018 Instruction Type:Patient Education Patient Instructions Indication:Need for prophylactic vaccination and inoculation against influenza (Renamed from Need for immunization against influenza) Start:19-May-2018 Instruction Type:Provider Instructions for Treatment How to access health informa tion online Indication:Nonsmoker Start:16-Nov-2017 Instruction Type:Patient Education How to access health informa tion online - Detail Indication:Nonsmoker Start:16-Nov-2017 Instruction Type:Patient Education Patient Instructions Indication:Nonsmoker Start:16-Nov-2017 Instruction Type:Provider Instructions for Treatment How to access health informa tion online Indication:Nonsmoker Start:10-Nov-2017 Instruction Type:Patient Education How to access health informa tion online - Detail Indication:Nonsmoker Start:10-Nov-2017 Instruction Type:Patient Education Patient Instructions Indication:Nonsmoker Start:10-Nov-2017 Instruction Type:Provider Instructions for Treatment How to access health informa tion online Indication:Nonsmoker Start:02-Nov-2016 Instruction Type:Patient Education How to access health informa tion online - Detail Indication:Nonsmoker Start:02-Nov-2016 Instruction Type:Patient Education Patient Instructions Indication:Nonsmoker Start:02-Nov-2016 Instruction Type:Provider Instructions for Treatment How to access health informa tion online - Detail Indication:Bronchitis Start:08-Sep-2016 Instruction Type:Patient Education Patient Instructions Indication:Bronchitis Start:08-Sep-2016 Instruction Type:Provider Instructions for Treatment How to access health informa tion online Indication:Encounter for screening mammogram for breast cancer (Renamed from Encounter for screening mammogram for malignant neoplasm of breast) Start:19-May-2016 Instruction Type:Patient Education How to access health informa tion online - Detail Indication:Encounter for screening mammogram for breast cancer (Renamed from Encounter for screening mammogram for malignant neoplasm of breast) Start:19-May-2016 Instruction Type:Patient Education Patient Instructions Indication:Encounter for screening mammogram for breast cancer (Renamed from Encounter for screening mammogram for malignant neoplasm of breast) Start:19-May-2016 Instruction Type:Provider Instructions for Treatment Patient Instructions Indication:Acute bronchitis due to other specified organisms Start:07-May-2016 Instruction Type:Provider Instructions for Treatment How to access health informa tion online Indication:Cough Start:08-Apr-2016 Instruction Type:Patient Education How to access health informa tion online - Detail Indication:Cough Start:08-Apr-2016 Instruction Type:Patient Education Patient Instructions Indication:Cough Start:08-Apr-2016 Instruction Type:Provider Instructions for Treatment How to access health informa tion online Indication:Cough Start:31-Mar-2016 Instruction Type:Patient Education How to access health informa tion online - Detail Indication:Cough Start:31-Mar-2016 Instruction Type:Patient Education Patient Instructions Indication:Cough Start:31-Mar-2016 Instruction Type:Provider Instructions for Treatment How to access health informa tion online - Detail Indication:Cough Start:09-Dec-2015 Instruction Type:Patient Education Patient Instructions Indication:Cough Start:09-Dec-2015 Instruction Type:Provider Instructions for Treatment How to access health informa tion online Indication:Rash/skin eruption Start:23-Apr-2015 Instruction Type:Patient Education How to access health informa tion online - Detail Indication:Rash/skin eruption Start:23-Apr-2015 Instruction Type:Patient Education Patient Instructions Indication:Rash/skin eruption Start:23-Apr-2015 Instruction Type:Provider Instructions for Treatment Patient Instructions Indication:Rash/skin eruption Start:18-Mar-2015 Instruction Type:Provider Instructions for Treatment Patient Instructions Indication:Acute bronchitis Start:29-Oct-2014 Instruction Type:Provider Instructions for Treatment How to access health informa tion online Indication:GERD (gastroesophageal reflux disease) Start:10-Jul-2014 Instruction Type:Patient Education How to access health informa tion online - Detail Indication:GERD (gastroesophageal reflux disease) Start:10-Jul-2014 Instruction Type:Patient Education Patient Instructions Indication:GERD (gastroesophageal reflux disease) Start:10-Jul-2014 Instruction Type:Provider Instructions for Treatment Patient Instructions Indication:GERD (gastroesophageal reflux disease) Start:12-May-2013 Instruction Type:Provider Instructions for Treatment Name Dates Details How to Access Health Informa tion Online using Patient Portal and [employer] Apps Indication:Nonsmoker Start:11-Dec-2020 Instruction Type:Patient Education Patient Instructions Indication:Nonsmoker Start:11-Dec-2020 Instruction Type:Provider Instructions for Treatment How to access health informa tion online Indication:BMI 28.0-28.9,adult Start:18-Jul-2020 Instruction Type:Patient Education How to access health informa tion online - Detail Indication:BMI 28.0-28.9,adult Start:18-Jul-2020 Instruction Type:Patient Education Patient Instructions Indication:BMI 28.0-28.9,adult Start:18-Jul-2020 Instruction Type:Provider Instructions for Treatment How to access health informa tion online Indication:Nonsmoker Start:11-Jul-2020 Instruction Type:Patient Education How to access health informa tion online - Detail Indication:Nonsmoker Start:11-Jul-2020 Instruction Type:Patient Education Patient Instructions Indication:Nonsmoker Start:11-Jul-2020 Instruction Type:Provider Instructions for Treatment How to access health informa tion online Indication:BMI 27.0-27.9,adult Start:12-Jun-2020 Instruction Type:Patient Education How to access health informa tion online - Detail Indication:BMI 27.0-27.9,adult Start:12-Jun-2020 Instruction Type:Patient Education Patient Instructions Indication:BMI 27.0-27.9,adult Start:12-Jun-2020 Instruction Type:Provider Instructions for Treatment How to access health informa tion online Indication:BMI 27.0-27.9,adult Start:29-Apr-2020 Instruction Type:Patient Education How to access health informa tion online - Detail Indication:BMI 27.0-27.9,adult Start:29-Apr-2020 Instruction Type:Patient Education Patient Instructions Indication:BMI 27.0-27.9,adult Start:29-Apr-2020 Instruction Type:Provider Instructions for Treatment How to access health informa tion online Indication:Nonsmoker Start:21-Dec-2019 Instruction Type:Patient Education How to access health informa tion online - Detail Indication:Nonsmoker Start:21-Dec-2019 Instruction Type:Patient Education Patient Instructions Indication:Nonsmoker Start:21-Dec-2019 Instruction Type:Provider Instructions for Treatment How to access health informa tion online Indication:Nonsmoker Start:07-Dec-2019 Instruction Type:Patient Education How to access health informa tion online - Detail Indication:Nonsmoker Start:07-Dec-2019 Instruction Type:Patient Education Patient Instructions Indication:Nonsmoker Start:07-Dec-2019 Instruction Type:Provider Instructions for Treatment How to access health informa tion online Indication:BMI 27.0-27.9,adult Start:16-Nov-2019 Instruction Type:Patient Education How to access health informa tion online - Detail Indication:BMI 27.0-27.9,adult Start:16-Nov-2019 Instruction Type:Patient Education Patient Instructions Indication:BMI 27.0-27.9,adult Start:16-Nov-2019 Instruction Type:Provider Instructions for Treatment How to access health informa tion online Indication:BMI 28.0-28.9,adult Start:07-Sep-2019 Instruction Type:Patient Education How to access health informa tion online - Detail Indication:BMI 28.0-28.9,adult Start:07-Sep-2019 Instruction Type:Patient Education Patient Instructions Indication:Post-nasal drainage Start:07-Sep-2019 Instruction Type:Provider Instructions for Treatment How to access health informa tion online Indication:Hypertension, benign Start:17-May-2019 Instruction Type:Patient Education How to access health informa tion online - Detail Indication:Hypertension, benign Start:17-May-2019 Instruction Type:Patient Education Patient Instructions Indication:Hypertension, benign Start:17-May-2019 Instruction Type:Provider Instructions for Treatment How to access health informa tion online Indication:Nonsmoker Start:14-Nov-2018 Instruction Type:Patient Education How to access health informa tion online - Detail Indication:Nonsmoker Start:14-Nov-2018 Instruction Type:Patient Education Patient Instructions Indication:Nonsmoker Start:14-Nov-2018 Instruction Type:Provider Instructions for Treatment How to access health informa tion online Indication:Nonsmoker Start:14-Sep-2018 Instruction Type:Patient Education How to access health informa tion online - Detail Indication:Nonsmoker Start:14-Sep-2018 Instruction Type:Patient Education Patient Instructions Indication:Nonsmoker Start:14-Sep-2018 Instruction Type:Provider Instructions for Treatment How to access health informa tion online Indication:Nonsmoker Start:04-Jul-2018 Instruction Type:Patient Education Patient Instructions Indication:Nonsmoker Start:04-Jul-2018 Instruction Type:Provider Instructions for Treatment How to access health informa tion online Indication:BMI 27.0-27.9,adult Start:14-Jun-2018 Instruction Type:Patient Education How to access health informa tion online - Detail Indication:BMI 27.0-27.9,adult Start:14-Jun-2018 Instruction Type:Patient Education Patient Instructions Indication:BMI 27.0-27.9,adult Start:14-Jun-2018 Instruction Type:Provider Instructions for Treatment How to access health informa tion online Indication:Need for prophylactic vaccination and inoculation against influenza (Renamed from Need for immunization against influenza) Start:19-May-2018 Instruction Type:Patient Education How to access health informa tion online - Detail Indication:Need for prophylactic vaccination and inoculation against influenza (Renamed from Need for immunization against influenza) Start:19-May-2018 Instruction Type:Patient Education Patient Instructions Indication:Need for prophylactic vaccination and inoculation against influenza (Renamed from Need for immunization against influenza) Start:19-May-2018 Instruction Type:Provider Instructions for Treatment How to access health informa tion online Indication:Nonsmoker Start:16-Nov-2017 Instruction Type:Patient Education How to access health informa tion online - Detail Indication:Nonsmoker Start:16-Nov-2017 Instruction Type:Patient Education Patient Instructions Indication:Nonsmoker Start:16-Nov-2017 Instruction Type:Provider Instructions for Treatment How to access health informa tion online Indication:Nonsmoker Start:10-Nov-2017 Instruction Type:Patient Education How to access health informa tion online - Detail Indication:Nonsmoker Start:10-Nov-2017 Instruction Type:Patient Education Patient Instructions Indication:Nonsmoker Start:10-Nov-2017 Instruction Type:Provider Instructions for Treatment How to access health informa tion online Indication:Nonsmoker Start:02-Nov-2016 Instruction Type:Patient Education How to access health informa tion online - Detail Indication:Nonsmoker Start:02-Nov-2016 Instruction Type:Patient Education Patient Instructions Indication:Nonsmoker Start:02-Nov-2016 Instruction Type:Provider Instructions for Treatment How to access health informa tion online - Detail Indication:Bronchitis Start:08-Sep-2016 Instruction Type:Patient Education Patient Instructions Indication:Bronchitis Start:08-Sep-2016 Instruction Type:Provider Instructions for Treatment How to access health informa tion online Indication:Encounter for screening mammogram for breast cancer (Renamed from Encounter for screening mammogram for malignant neoplasm of breast) Start:19-May-2016 Instruction Type:Patient Education How to access health informa tion online - Detail Indication:Encounter for screening mammogram for breast cancer (Renamed from Encounter for screening mammogram for malignant neoplasm of breast) Start:19-May-2016 Instruction Type:Patient Education Patient Instructions Indication:Encounter for screening mammogram for breast cancer (Renamed from Encounter for screening mammogram for malignant neoplasm of breast) Start:19-May-2016 Instruction Type:Provider Instructions for Treatment Patient Instructions Indication:Acute bronchitis due to other specified organisms Start:07-May-2016 Instruction Type:Provider Instructions for Treatment How to access health informa tion online Indication:Cough Start:08-Apr-2016 Instruction Type:Patient Education How to access health informa tion online - Detail Indication:Cough Start:08-Apr-2016 Instruction Type:Patient Education Patient Instructions Indication:Cough Start:08-Apr-2016 Instruction Type:Provider Instructions for Treatment How to access health informa tion online Indication:Cough Start:31-Mar-2016 Instruction Type:Patient Education How to access health informa tion online - Detail Indication:Cough Start:31-Mar-2016 Instruction Type:Patient Education Patient Instructions Indication:Cough Start:31-Mar-2016 Instruction Type:Provider Instructions for Treatment How to access health informa tion online - Detail Indication:Cough Start:09-Dec-2015 Instruction Type:Patient Education Patient Instructions Indication:Cough Start:09-Dec-2015 Instruction Type:Provider Instructions for Treatment How to access health informa tion online Indication:Rash/skin eruption Start:23-Apr-2015 Instruction Type:Patient Education How to access health informa tion online - Detail Indication:Rash/skin eruption Start:23-Apr-2015 Instruction Type:Patient Education Patient Instructions Indication:Rash/skin eruption Start:23-Apr-2015 Instruction Type:Provider Instructions for Treatment Patient Instructions Indication:Rash/skin eruption Start:18-Mar-2015 Instruction Type:Provider Instructions for Treatment Patient Instructions Indication:Acute bronchitis Start:29-Oct-2014 Instruction Type:Provider Instructions for Treatment How to access health informa tion online Indication:GERD (gastroesophageal reflux disease) Start:10-Jul-2014 Instruction Type:Patient Education How to access health informa tion online - Detail Indication:GERD (gastroesophageal reflux disease) Start:10-Jul-2014 Instruction Type:Patient Education Patient Instructions Indication:GERD (gastroesophageal reflux disease) Start:10-Jul-2014 Instruction Type:Provider Instructions for Treatment Patient Instructions Indication:GERD (gastroesophageal reflux disease) Start:12-May-2013 Instruction Type:Provider Instructions for Treatment Name Dates Details How to Access Health Informa tion Online using Patient Portal and [employer] Apps Indication:Nonsmoker Start:11-Dec-2020 Instruction Type:Patient Education Patient Instructions Indication:Nonsmoker Start:11-Dec-2020 Instruction Type:Provider Instructions for Treatment How to access health informa tion online Indication:BMI 28.0-28.9,adult Start:18-Jul-2020 Instruction Type:Patient Education How to access health informa tion online - Detail Indication:BMI 28.0-28.9,adult Start:18-Jul-2020 Instruction Type:Patient Education Patient Instructions Indication:BMI 28.0-28.9,adult Start:18-Jul-2020 Instruction Type:Provider Instructions for Treatment How to access health informa tion online Indication:Nonsmoker Start:11-Jul-2020 Instruction Type:Patient Education How to access health informa tion online - Detail Indication:Nonsmoker Start:11-Jul-2020 Instruction Type:Patient Education Patient Instructions Indication:Nonsmoker Start:11-Jul-2020 Instruction Type:Provider Instructions for Treatment How to access health informa tion online Indication:BMI 27.0-27.9,adult Start:12-Jun-2020 Instruction Type:Patient Education How to access health informa tion online - Detail Indication:BMI 27.0-27.9,adult Start:12-Jun-2020 Instruction Type:Patient Education Patient Instructions Indication:BMI 27.0-27.9,adult Start:12-Jun-2020 Instruction Type:Provider Instructions for Treatment How to access health informa tion online Indication:BMI 27.0-27.9,adult Start:29-Apr-2020 Instruction Type:Patient Education How to access health informa tion online - Detail Indication:BMI 27.0-27.9,adult Start:29-Apr-2020 Instruction Type:Patient Education Patient Instructions Indication:BMI 27.0-27.9,adult Start:29-Apr-2020 Instruction Type:Provider Instructions for Treatment How to access health informa tion online Indication:Nonsmoker Start:21-Dec-2019 Instruction Type:Patient Education How to access health informa tion online - Detail Indication:Nonsmoker Start:21-Dec-2019 Instruction Type:Patient Education Patient Instructions Indication:Nonsmoker Start:21-Dec-2019 Instruction Type:Provider Instructions for Treatment How to access health informa tion online Indication:Nonsmoker Start:07-Dec-2019 Instruction Type:Patient Education How to access health informa tion online - Detail Indication:Nonsmoker Start:07-Dec-2019 Instruction Type:Patient Education Patient Instructions Indication:Nonsmoker Start:07-Dec-2019 Instruction Type:Provider Instructions for Treatment How to access health informa tion online Indication:BMI 27.0-27.9,adult Start:16-Nov-2019 Instruction Type:Patient Education How to access health informa tion online - Detail Indication:BMI 27.0-27.9,adult Start:16-Nov-2019 Instruction Type:Patient Education Patient Instructions Indication:BMI 27.0-27.9,adult Start:16-Nov-2019 Instruction Type:Provider Instructions for Treatment How to access health informa tion online Indication:BMI 28.0-28.9,adult Start:07-Sep-2019 Instruction Type:Patient Education How to access health informa tion online - Detail Indication:BMI 28.0-28.9,adult Start:07-Sep-2019 Instruction Type:Patient Education Patient Instructions Indication:Post-nasal drainage Start:07-Sep-2019 Instruction Type:Provider Instructions for Treatment How to access health informa tion online Indication:Hypertension, benign Start:17-May-2019 Instruction Type:Patient Education How to access health informa tion online - Detail Indication:Hypertension, benign Start:17-May-2019 Instruction Type:Patient Education Patient Instructions Indication:Hypertension, benign Start:17-May-2019 Instruction Type:Provider Instructions for Treatment How to access health informa tion online Indication:Nonsmoker Start:14-Nov-2018 Instruction Type:Patient Education How to access health informa tion online - Detail Indication:Nonsmoker Start:14-Nov-2018 Instruction Type:Patient Education Patient Instructions Indication:Nonsmoker Start:14-Nov-2018 Instruction Type:Provider Instructions for Treatment How to access health informa tion online Indication:Nonsmoker Start:14-Sep-2018 Instruction Type:Patient Education How to access health informa tion online - Detail Indication:Nonsmoker Start:14-Sep-2018 Instruction Type:Patient Education Patient Instructions Indication:Nonsmoker Start:14-Sep-2018 Instruction Type:Provider Instructions for Treatment How to access health informa tion online Indication:Nonsmoker Start:04-Jul-2018 Instruction Type:Patient Education Patient Instructions Indication:Nonsmoker Start:04-Jul-2018 Instruction Type:Provider Instructions for Treatment How to access health informa tion online Indication:BMI 27.0-27.9,adult Start:14-Jun-2018 Instruction Type:Patient Education How to access health informa tion online - Detail Indication:BMI 27.0-27.9,adult Start:14-Jun-2018 Instruction Type:Patient Education Patient Instructions Indication:BMI 27.0-27.9,adult Start:14-Jun-2018 Instruction Type:Provider Instructions for Treatment How to access health informa tion online Indication:Need for prophylactic vaccination and inoculation against influenza (Renamed from Need for immunization against influenza) Start:19-May-2018 Instruction Type:Patient Education How to access health informa tion online - Detail Indication:Need for prophylactic vaccination and inoculation against influenza (Renamed from Need for immunization against influenza) Start:19-May-2018 Instruction Type:Patient Education Patient Instructions Indication:Need for prophylactic vaccination and inoculation against influenza (Renamed from Need for immunization against influenza) Start:19-May-2018 Instruction Type:Provider Instructions for Treatment How to access health informa tion online Indication:Nonsmoker Start:16-Nov-2017 Instruction Type:Patient Education How to access health informa tion online - Detail Indication:Nonsmoker Start:16-Nov-2017 Instruction Type:Patient Education Patient Instructions Indication:Nonsmoker Start:16-Nov-2017 Instruction Type:Provider Instructions for Treatment How to access health informa tion online Indication:Nonsmoker Start:10-Nov-2017 Instruction Type:Patient Education How to access health informa tion online - Detail Indication:Nonsmoker Start:10-Nov-2017 Instruction Type:Patient Education Patient Instructions Indication:Nonsmoker Start:10-Nov-2017 Instruction Type:Provider Instructions for Treatment How to access health informa tion online Indication:Nonsmoker Start:02-Nov-2016 Instruction Type:Patient Education How to access health informa tion online - Detail Indication:Nonsmoker Start:02-Nov-2016 Instruction Type:Patient Education Patient Instructions Indication:Nonsmoker Start:02-Nov-2016 Instruction Type:Provider Instructions for Treatment How to access health informa tion online - Detail Indication:Bronchitis Start:08-Sep-2016 Instruction Type:Patient Education Patient Instructions Indication:Bronchitis Start:08-Sep-2016 Instruction Type:Provider Instructions for Treatment How to access health informa tion online Indication:Encounter for screening mammogram for breast cancer (Renamed from Encounter for screening mammogram for malignant neoplasm of breast) Start:19-May-2016 Instruction Type:Patient Education How to access health informa tion online - Detail Indication:Encounter for screening mammogram for breast cancer (Renamed from Encounter for screening mammogram for malignant neoplasm of breast) Start:19-May-2016 Instruction Type:Patient Education Patient Instructions Indication:Encounter for screening mammogram for breast cancer (Renamed from Encounter for screening mammogram for malignant neoplasm of breast) Start:19-May-2016 Instruction Type:Provider Instructions for Treatment Patient Instructions Indication:Acute bronchitis due to other specified organisms Start:07-May-2016 Instruction Type:Provider Instructions for Treatment How to access health informa tion online Indication:Cough Start:08-Apr-2016 Instruction Type:Patient Education How to access health informa tion online - Detail Indication:Cough Start:08-Apr-2016 Instruction Type:Patient Education Patient Instructions Indication:Cough Start:08-Apr-2016 Instruction Type:Provider Instructions for Treatment How to access health informa tion online Indication:Cough Start:31-Mar-2016 Instruction Type:Patient Education How to access health informa tion online - Detail Indication:Cough Start:31-Mar-2016 Instruction Type:Patient Education Patient Instructions Indication:Cough Start:31-Mar-2016 Instruction Type:Provider Instructions for Treatment How to access health informa tion online - Detail Indication:Cough Start:09-Dec-2015 Instruction Type:Patient Education Patient Instructions Indication:Cough Start:09-Dec-2015 Instruction Type:Provider Instructions for Treatment How to access health informa tion online Indication:Rash/skin eruption Start:23-Apr-2015 Instruction Type:Patient Education How to access health informa tion online - Detail Indication:Rash/skin eruption Start:23-Apr-2015 Instruction Type:Patient Education Patient Instructions Indication:Rash/skin eruption Start:23-Apr-2015 Instruction Type:Provider Instructions for Treatment Patient Instructions Indication:Rash/skin eruption Start:18-Mar-2015 Instruction Type:Provider Instructions for Treatment Patient Instructions Indication:Acute bronchitis Start:29-Oct-2014 Instruction Type:Provider Instructions for Treatment How to access health informa tion online Indication:GERD (gastroesophageal reflux disease) Start:10-Jul-2014 Instruction Type:Patient Education How to access health informa tion online - Detail Indication:GERD (gastroesophageal reflux disease) Start:10-Jul-2014 Instruction Type:Patient Education Patient Instructions Indication:GERD (gastroesophageal reflux disease) Start:10-Jul-2014 Instruction Type:Provider Instructions for Treatment Patient Instructions Indication:GERD (gastroesophageal reflux disease) Start:12-May-2013 Instruction Type:Provider Instructions for Treatment Name Dates Details How to Access Health Informa tion Online using Patient Portal and [employer] Apps Indication:Nonsmoker Start:11-Dec-2020 Instruction Type:Patient Education Patient Instructions Indication:Nonsmoker Start:11-Dec-2020 Instruction Type:Provider Instructions for Treatment How to access health informa tion online Indication:BMI 28.0-28.9,adult Start:18-Jul-2020 Instruction Type:Patient Education How to access health informa tion online - Detail Indication:BMI 28.0-28.9,adult Start:18-Jul-2020 Instruction Type:Patient Education Patient Instructions Indication:BMI 28.0-28.9,adult Start:18-Jul-2020 Instruction Type:Provider Instructions for Treatment How to access health informa tion online Indication:Nonsmoker Start:11-Jul-2020 Instruction Type:Patient Education How to access health informa tion online - Detail Indication:Nonsmoker Start:11-Jul-2020 Instruction Type:Patient Education Patient Instructions Indication:Nonsmoker Start:11-Jul-2020 Instruction Type:Provider Instructions for Treatment How to access health informa tion online Indication:BMI 27.0-27.9,adult Start:12-Jun-2020 Instruction Type:Patient Education How to access health informa tion online - Detail Indication:BMI 27.0-27.9,adult Start:12-Jun-2020 Instruction Type:Patient Education Patient Instructions Indication:BMI 27.0-27.9,adult Start:12-Jun-2020 Instruction Type:Provider Instructions for Treatment How to access health informa tion online Indication:BMI 27.0-27.9,adult Start:29-Apr-2020 Instruction Type:Patient Education How to access health informa tion online - Detail Indication:BMI 27.0-27.9,adult Start:29-Apr-2020 Instruction Type:Patient Education Patient Instructions Indication:BMI 27.0-27.9,adult Start:29-Apr-2020 Instruction Type:Provider Instructions for Treatment How to access health informa tion online Indication:Nonsmoker Start:21-Dec-2019 Instruction Type:Patient Education How to access health informa tion online - Detail Indication:Nonsmoker Start:21-Dec-2019 Instruction Type:Patient Education Patient Instructions Indication:Nonsmoker Start:21-Dec-2019 Instruction Type:Provider Instructions for Treatment How to access health informa tion online Indication:Nonsmoker Start:07-Dec-2019 Instruction Type:Patient Education How to access health informa tion online - Detail Indication:Nonsmoker Start:07-Dec-2019 Instruction Type:Patient Education Patient Instructions Indication:Nonsmoker Start:07-Dec-2019 Instruction Type:Provider Instructions for Treatment How to access health informa tion online Indication:BMI 27.0-27.9,adult Start:16-Nov-2019 Instruction Type:Patient Education How to access health informa tion online - Detail Indication:BMI 27.0-27.9,adult Start:16-Nov-2019 Instruction Type:Patient Education Patient Instructions Indication:BMI 27.0-27.9,adult Start:16-Nov-2019 Instruction Type:Provider Instructions for Treatment How to access health informa tion online Indication:BMI 28.0-28.9,adult Start:07-Sep-2019 Instruction Type:Patient Education How to access health informa tion online - Detail Indication:BMI 28.0-28.9,adult Start:07-Sep-2019 Instruction Type:Patient Education Patient Instructions Indication:Post-nasal drainage Start:07-Sep-2019 Instruction Type:Provider Instructions for Treatment How to access health informa tion online Indication:Hypertension, benign Start:17-May-2019 Instruction Type:Patient Education How to access health informa tion online - Detail Indication:Hypertension, benign Start:17-May-2019 Instruction Type:Patient Education Patient Instructions Indication:Hypertension, benign Start:17-May-2019 Instruction Type:Provider Instructions for Treatment How to access health informa tion online Indication:Nonsmoker Start:14-Nov-2018 Instruction Type:Patient Education How to access health informa tion online - Detail Indication:Nonsmoker Start:14-Nov-2018 Instruction Type:Patient Education Patient Instructions Indication:Nonsmoker Start:14-Nov-2018 Instruction Type:Provider Instructions for Treatment How to access health informa tion online Indication:Nonsmoker Start:14-Sep-2018 Instruction Type:Patient Education How to access health informa tion online - Detail Indication:Nonsmoker Start:14-Sep-2018 Instruction Type:Patient Education Patient Instructions Indication:Nonsmoker Start:14-Sep-2018 Instruction Type:Provider Instructions for Treatment How to access health informa tion online Indication:Nonsmoker Start:04-Jul-2018 Instruction Type:Patient Education Patient Instructions Indication:Nonsmoker Start:04-Jul-2018 Instruction Type:Provider Instructions for Treatment How to access health informa tion online Indication:BMI 27.0-27.9,adult Start:14-Jun-2018 Instruction Type:Patient Education How to access health informa tion online - Detail Indication:BMI 27.0-27.9,adult Start:14-Jun-2018 Instruction Type:Patient Education Patient Instructions Indication:BMI 27.0-27.9,adult Start:14-Jun-2018 Instruction Type:Provider Instructions for Treatment How to access health informa tion online Indication:Need for prophylactic vaccination and inoculation against influenza (Renamed from Need for immunization against influenza) Start:19-May-2018 Instruction Type:Patient Education How to access health informa tion online - Detail Indication:Need for prophylactic vaccination and inoculation against influenza (Renamed from Need for immunization against influenza) Start:19-May-2018 Instruction Type:Patient Education Patient Instructions Indication:Need for prophylactic vaccination and inoculation against influenza (Renamed from Need for immunization against influenza) Start:19-May-2018 Instruction Type:Provider Instructions for Treatment How to access health informa tion online Indication:Nonsmoker Start:16-Nov-2017 Instruction Type:Patient Education How to access health informa tion online - Detail Indication:Nonsmoker Start:16-Nov-2017 Instruction Type:Patient Education Patient Instructions Indication:Nonsmoker Start:16-Nov-2017 Instruction Type:Provider Instructions for Treatment How to access health informa tion online Indication:Nonsmoker Start:10-Nov-2017 Instruction Type:Patient Education How to access health informa tion online - Detail Indication:Nonsmoker Start:10-Nov-2017 Instruction Type:Patient Education Patient Instructions Indication:Nonsmoker Start:10-Nov-2017 Instruction Type:Provider Instructions for Treatment How to access health informa tion online Indication:Nonsmoker Start:02-Nov-2016 Instruction Type:Patient Education How to access health informa tion online - Detail Indication:Nonsmoker Start:02-Nov-2016 Instruction Type:Patient Education Patient Instructions Indication:Nonsmoker Start:02-Nov-2016 Instruction Type:Provider Instructions for Treatment How to access health informa tion online - Detail Indication:Bronchitis Start:08-Sep-2016 Instruction Type:Patient Education Patient Instructions Indication:Bronchitis Start:08-Sep-2016 Instruction Type:Provider Instructions for Treatment How to access health informa tion online Indication:Encounter for screening mammogram for breast cancer (Renamed from Encounter for screening mammogram for malignant neoplasm of breast) Start:19-May-2016 Instruction Type:Patient Education How to access health informa tion online - Detail Indication:Encounter for screening mammogram for breast cancer (Renamed from Encounter for screening mammogram for malignant neoplasm of breast) Start:19-May-2016 Instruction Type:Patient Education Patient Instructions Indication:Encounter for screening mammogram for breast cancer (Renamed from Encounter for screening mammogram for malignant neoplasm of breast) Start:19-May-2016 Instruction Type:Provider Instructions for Treatment Patient Instructions Indication:Acute bronchitis due to other specified organisms Start:07-May-2016 Instruction Type:Provider Instructions for Treatment How to access health informa tion online Indication:Cough Start:08-Apr-2016 Instruction Type:Patient Education How to access health informa tion online - Detail Indication:Cough Start:08-Apr-2016 Instruction Type:Patient Education Patient Instructions Indication:Cough Start:08-Apr-2016 Instruction Type:Provider Instructions for Treatment How to access health informa tion online Indication:Cough Start:31-Mar-2016 Instruction Type:Patient Education How to access health informa tion online - Detail Indication:Cough Start:31-Mar-2016 Instruction Type:Patient Education Patient Instructions Indication:Cough Start:31-Mar-2016 Instruction Type:Provider Instructions for Treatment How to access health informa tion online - Detail Indication:Cough Start:09-Dec-2015 Instruction Type:Patient Education Patient Instructions Indication:Cough Start:09-Dec-2015 Instruction Type:Provider Instructions for Treatment How to access health informa tion online Indication:Rash/skin eruption Start:23-Apr-2015 Instruction Type:Patient Education How to access health informa tion online - Detail Indication:Rash/skin eruption Start:23-Apr-2015 Instruction Type:Patient Education Patient Instructions Indication:Rash/skin eruption Start:23-Apr-2015 Instruction Type:Provider Instructions for Treatment Patient Instructions Indication:Rash/skin eruption Start:18-Mar-2015 Instruction Type:Provider Instructions for Treatment Patient Instructions Indication:Acute bronchitis Start:29-Oct-2014 Instruction Type:Provider Instructions for Treatment How to access health informa tion online Indication:GERD (gastroesophageal reflux disease) Start:10-Jul-2014 Instruction Type:Patient Education How to access health informa tion online - Detail Indication:GERD (gastroesophageal reflux disease) Start:10-Jul-2014 Instruction Type:Patient Education Patient Instructions Indication:GERD (gastroesophageal reflux disease) Start:10-Jul-2014 Instruction Type:Provider Instructions for Treatment Patient Instructions Indication:GERD (gastroesophageal reflux disease) Start:12-May-2013 Instruction Type:Provider Instructions for Treatment Summary Purpose Advance Directives No Advanced Directives Records Found Name Dates Details Immunization Registry [place] - Effective on 11/11/2020. Expiration date unspecified Effective:11-Nov-2020 Name Dates Details Immunization Registry [place] - Effective on 11/11/2020. Expiration date unspecified Effective:11-Nov-2020 Name Dates Details Immunization Registry [place] - Effective on 11/11/2020. Expiration date unspecified Effective:11-Nov-2020 Name Dates Details Immunization Registry [place] - Effective on 11/11/2020. Expiration date unspecified Effective:11-Nov-2020 Name Dates Details Immunization Registry [place] - Effective on 11/11/2020. Expiration date unspecified Effective:11-Nov-2020 Advance Directive Response Recorded Date/ Time Living Will Yes July 26 12:43pm Power of Dean Of Boys Yes July 26, 2020 12:43pm Name Dates Details Immunization Registry [place] - Effective on 11/11/2020. Expiration date unspecified Effective:11-Nov-2020 Name Dates Details Immunization Registry [place] - Effective on 11/11/2020. Expiration date unspecified Effective:11-Nov-2020 Name Dates Details Immunization Registry [place] - Effective on 11/11/2020. Expiration date unspecified Effective:11-Nov-2020 Name Dates Details Immunization Registry [place] - Effective on 11/11/2020. Expiration date unspecified Effective:11-Nov-2020 Name Dates Details Immunization Registry [place] - Effective on 11/11/2020. 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 Expiration date unspecified Effective:11-Nov-2020 Name Dates Details Immunization Registry [place] - Effective on 11/11/2020. Expiration date unspecified Effective:11-Nov-2020 Name Dates Details Immunization Registry [place] - Effective on 11/11/2020. Expiration date unspecified Effective:11-Nov-2020 Name Dates Details Immunization Registry [place] - Effective on 11/11/2020. Expiration date unspecified Effective:11-Nov-2020 Advance Directive Response Recorded Date/ Time Living Will Yes July 26 11:43am Power of Dean Of Boys Yes July 26, 2020 11:43am Name Dates Details Immunization Registry [place] - Effective on 11/11/2020. Expiration date unspecified Effective:11-Nov-2020 Name Dates Details Immunization Registry [place] - Effective on 11/11/2020. Expiration date unspecified Effective:11-Nov-2020 Name Dates Details Immunization Registry [place] - Effective on 11/11/2020. Expiration date unspecified Effective:11-Nov-2020 Name Dates Details Immunization Registry [place] - Effective on 11/11/2020. Expiration date unspecified Effective:11-Nov-2020 Name Dates Details Immunization Registry [place] - Effective on 10/01/2022. Expiration date unspecified Effective:01-Oct-2022 Name Dates Details Immunization Registry [place] - Effective on 10/01/2022. Expiration date unspecified Effective:01-Oct-2022 Name Dates Details Immunization Registry [place] - Effective on 10/01/2022. Expiration date unspecified Effective:01-Oct-2022 Name Dates Details Immunization Registry [place] - Effective on 10/01/2022. Expiration date unspecified Effective:01-Oct-2022 Advance Directive Response Recorded Date/ Time Living Will No December 19, 2022 3:10pm Power of Dean Of [employer] No December 19 3:10pm Name Dates Details Immunization Registry [place] - Effective on 01/06/2023. Expiration date unspecified Effective:06-Jan-2023 Name Dates Details Immunization Registry [place] - Effective on 01/06/2023. Expiration date unspecified Effective:06-Jan-2023 Name Dates Details Immunization Registry [place] - Effective on 01/06/2023. Expiration date unspecified Effective:06-Jan-2023 Advance Directive Response Recorded Date/ Time Living Will No December 19, 2022 2:10pm Power of Dean Of Boys No December 19 2:10pm Name Dates Details Immunization Registry [place] - Effective on 10/01/2022. 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 Cough Cough CHRONIC COUGH EORDER- cough NVD Reason for Visit Lichen sclerosus Encounter for routine gynecological examination Chronic cough Chief Complaint NECK PAIN/PT HAS RX 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) Cough Cough Cough CHRONIC COUGH EORDER- cough NVD SCREENING Reason for Visit Lichen sclerosus Encounter for routine gynecological examination Chronic cough Chief Complaint 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) 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 Cough Cough CHRONIC COUGH EORDER- cough NVD SCREENING E ORDERS Cough Reason for Visit Lichen sclerosus Encounter for routine gynecological examination Chronic cough Acute viral bronchitis GERD (gastroesophageal reflux disease) Vaccine counseling Chief Complaint NVD SCREENING E ORDERS Cough 2 M FU SCREENING Reason for Visit Acute viral bronchit is GERD (gastroesophageal reflux disease) Vaccine counseling Chronic cough Chief Complaint SCREENING E ORDERS Cough 2 M FU SCREENING Cough INT LABS Reason for Visit Acute viral bronchit is GERD (gastroesophageal reflux disease) Vaccine counseling Chronic cough Allergic rhinitis Chronic cough Chief Complaint 2 M FU SCREENING Cough INT LABS CHRONIC COUGH CHRONIC COUGH Reason for Visit Chronic cough Allergic rhinitis Chronic cough Chief Complaint CHRONIC COUGH 2 M FU 6 wk FU EORDER Reason for Visit Chronic cough Eosinophil count raised Allergic asthma Chief Complaint EORDER 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) Asthma Severe Persistent Asthma 3 M FU SCREENING Reason for Visit Atrophic vaginitis Lichen sclerosus Encounter for routine gynecological examination Allergic asthma Chief Complaint Admit Date SCREENING January 02, 2025 9:3 5am post luz April 03, 2025 9:22 am Additional Source Comments INFORMATION SOURCE (unrecogn ized section and content) DATE CREATED AUTHOR 10/06/2019 [facility] DATE CREATED AUTHOR AUTHOR'S ORGANIZ ATION 03/31/2022 [facility] DATE CREATED AUTHOR AUTHOR'S ORGANIZ ATION 01/15/2023 [facility] DATE CREATED AUTHOR AUTHOR'S ORGANIZ ATION 07/17/2025 [facility] Goals (unrecognized section and content) Goals may be documented in a n alternate sectionGoals may be documented in an alternate sectionGoals may be documented in an alternate sectionGoals may be documented in an alternate sectionGoals may be documented in an alternate sectionGoals may be documented in an alternate sectionGoals may be documented in an alternate sectionGoals may be documented in an alternate sectionGoals may be documented in an alternate sectionGoals may be documented in an alternate sectionGoals may be documented in an alternate sectionGoals may be documented in an alternate sectionGoals may be documented in an alternate sectionGoals may be documented in an alternate sectionGoals may be documented in an alternate sectionGoals may be documented in an alternate section Source Comments (unrecognize d section and content) In the event this informatio n is protected by the Federal Confidentiality of Alcohol and Drug Abuse Patient Records regulations: The Federal rules restrict any use of the information to criminally investigate or prosecute any alcohol or drug abuse patient.[facility] Reason for Visit (unrecogniz ed section and content) Reason Comments Patient Question Care Teams (unrecognized sec tion and content) 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 Nikky Tabor DO Family Provider Active Dr. Nikky Tabor DO Primary Care Provider Active Team Status: Inactive Member Role Status Dates Dr. Nikky Tabor DO Primary Care Provider, Referr ing Provider Active Anna Cho SOFT BOARDER, SOFT BOARDER-C Attending Provider Active Team Status: Inactive Member Role Status Dates Dr. Nikky Tabor DO Primary Care Provider, Referr ing Provider Active Dr. Scott Tran MD Attending Provider Active Team Status: Active Member Role Status Dates Dr. Nikky Tabor DO Primary Care Pr ovider, Referring Provider, Other Provider Active Dr. Clemente Frias , DO Attending Provider Active Team Status: Inactive Member Role Status Dates Dr. Nikky Tabor DO Primary Care Pr ovider, Attending Provider, Referring Provider Active Team Status: Active Member Role Status Dates Dr. Nikky Tabor DO Primary Care Provider Active Dr. Scott Tran MD Attending Provider, Referring Provider Active Team Status: Inactive Member Role Status Dates Dr. Nikky Tabor DO Primary Care Provider Active Dr. Scott Tran MD Attending Provider, Referring Provider Active Team Status: Inactive Member Role Status Dates Dr. Nikky Tabor DO Primary Care Provider Active Dr. Jamie Mooney , DO Emergency Provider Active Team Status: Inactive Member Role Status Dates Dr. Nikky Sharona , DO Primary Care Provider Active Anna Cho SOFT BOARDER, SOFT BOARDER-C Attending Provider, Referring Provider Active Team Status: Inactive Member Role Status Dates Dr. Nikky Tabor DO Primary Care Provider Active Dr. Jamie Mooney DO Attending Provider, Marium vu Active Team Status: Inactive Member Role Status Dates Dr. Nikky Tabor DO Primary Care Provider, Referr ing Provider Active Leda Mondragon SOFT BOARDER, SOFT BOARDER-C Attending Provider Active Team Status: Inactive Member Role Status Dates Dr. Nikky Tabor DO Primary Care Provider Active Leda Mondragon SOFT BOARDER, SOFT BOARDER-C Attending Provider, Referrin g Provider Active Team Status: Active Member Role Status Dates Dr. Nikky Tabor DO Primary Care Provider Active Leda Mondragon SOFT BOARDER, SOFT BOARDER-C Referring Provider, Other Pr ovider Active Dr. Tanner Marquez MD Attending Provider Active Team Status: Inactive Member Role Status Dates Dr. Nikky Tabor DO Primary Care Provider, Referr ing Provider Active Dr. Clemente Frias DO Attending Provider Active Team Status: Active Member Role/Relationship Status Dates Dr. Nikky Tabor DO Primary Care Provider Active Team Status: Inactive Member Role/Relationship Status Dates Dr. Nikky Tabor DO Primary Care Provider Active Start: January 02, 2025 End: January 02, 2025 Anna Cho SOFT BOARDER, SOFT BOARDER-C Attending Provider Active Start: January 02, 2025 End: January 02, 2025 Anna Cho SOFT BOARDER, SOFT BOARDER-C Referring Provider Active Start: January 02, 2025 End: January 02, 2025 Team Status: Inactive Member Role/Relationship Status Dates Dr. Nikky Tabor DO Primary Care Provider Active Start: March 06, 2025 Dr. Lesley Ibanez MD Attending Provider Active Start: March 06, 2025 Team Status: Inactive Member Role/Relationship Status Dates Dr. Nikky Tabor DO Primary Care Provider Active Start: April 03, 2025 End: April 03, 2025 Dr. Nikky Tabor DO Attending Provider Active Start: April 03, 2025 End: April 03, 2025 Dr. Nikky Tbaor DO Referring Provider Active Start: April 03, 2025 End: April 03, 2025 FOR RECORDS PERTAINING TO PATIENTS WHO ARE OR HAVE BEEN ENROLLED IN A CHEMICAL DEPENDENCY/SUBSTANCEABUSE PROGRAM, SOME INFORMATION MAY BE OMITTED. This clinical summary was aggregated from multiple sources. Caution should be exercised in using it in the provision of clinical care. This summary normalizes information from multiple sources, and as a consequence, information in this document may materially change the coding, format and clinical context of patient data. In addition, data may be omitted in some cases. CLINICAL DECISIONS SHOULD BE BASED ON THE PRIMARY CLINICAL RECORDS. [facility] [employer] [facility]. provides no warranty or guarantee of the accuracy or completeness of information in this document.
== END | disposition home or self-care (01) ==
LOC: PSN 06:49
PROVIDERS: PCP Internal Medicine; Referring Provider Internal Medicine; Visit Provider Internal Medicine
DX: R94.31 Abnormal electrocardiogram [ECG] [EKG] (principal)
CPT/HCPCS: 93225; 93226

== ENCOUNTER → 2025-08-07 | Outpatient (CLI) | payer MEDICARE, SELFPAY | END | disposition home or self-care (01) | LOC: CIMLAB 09:28 | PROVIDERS: PCP Internal Medicine; Referring Provider Internal Medicine; Visit Provider Internal Medicine | DX: R73.01 Impaired fasting glucose (principal) | CPT/HCPCS: 36415; 83036 ==

== ENCOUNTER → 2025-08-10 | Outpatient (CLI) | payer MEDICARE, SELFPAY ==
--- NOTE | 2025-08-10 12:46 | ECHOD_ITS ---
Reason For Study Reason For Study: Abnormal EKG Procedure This was a 2D Doppler, Color Flow transthoracic echocardiogram. The patient is in an irregular rhythm. Exam performed in department. Left Ventricle Normal LV size. The left ventricular ejection fraction is 60 %. Stage 1 diastolic dysfunction. No regional wall motion abnormalities noted. Right Ventricle Normal RV size. Normal systolic function. Atria Normal left atrium. Normal right atrium. Mitral Valve Normal mitral valve. Mild (1+) eccentric mitral valve insufficiency. Tricuspid Valve Normal tricuspid valve. Aortic Valve Trisinus/trileaflet aortic valve. Pulmonic Valve Normal pulmonic valve. Great Vessels Normal aortic root. The pulmonary artery is normal size. Inferior vena cava collapse with respiration. Pericardium/Pleural No pericardial effusion. MMode/2D Measurements & Calculations LVIDd: 4.4 cm IVSd: 0.99 cm Ao root diam: 3.4 cm LVIDs: 2.8 cm LVPWd: 0.93 cm RVDd: 3.7 cm FS: 36.3 % LAV(MOD-bp): 36.6 ml LVAd ap4: 29.5 cm2 SV(MOD-sp4): 54.9 ml LAV(MOD-bp) Indexed: 22.6 ml/m2 LVLd ap4: 7.8 cm SI(MOD-sp4): 33.9 ml/m2 LAV(MOD-sp2): 37.4 ml EDV(MOD-sp4): 92.2 ml LAV(MOD-sp4): 35.1 ml EDV(sp4-el): 95.0 ml LVAs ap4: 16.9 cm2 LVLs ap4: 6.6 cm ESV(MOD-sp4): 37.3 ml ESV(sp4-el): 36.8 ml EF(MOD-sp4): 59.5 % EF(sp4-el): 61.3 % SV(sp4-el): 58.2 ml LA A4 area: 13.9 cm2 LA dimension(2D): 4.0 cm RA A4 area: 11.8 cm2 TAPSE: 2.1 cm Time Measurements MV dec time: 0.16 sec Doppler Measurements & Calculations MV E max yusuf: 73.4 cm/sec Lat Peak E' Yusuf: 8.6 cm/sec Med Peak E' Yusuf: 7.7 cm/sec MV A max yusuf: 74.6 cm/sec E/E' lat: 8.5 E/E' med: 9.5 MV E/A: 0.98 MV V2 max: 118.4 cm/sec MV P1/2t max yusuf: 89.3 cm/sec Ao V2 max: 163.7 cm/sec MV max P.6 mmHg MV P1/2t: 60.1 msec Ao max P.7 mmHg MV V2 mean: 54.8 cm/sec Ao V2 mean: 103.5 cm/sec MV mean P.5 mmHg MV dec slope: 435.4 cm/sec2 Ao mean P.9 mmHg MV V2 VTI: 27.4 cm MVA(P1/2t): 3.7 cm2 Ao V2 VTI: 38.2 cm AV (velocity ratio): 0.60 LV V1 max: 83.9 cm/sec MR max yusuf: 448.4 cm/sec PA V2 max: 77.5 cm/sec LV V1 max P.8 mmHg MR max P.4 mmHg LV V1 mean P.6 mmHg LV V1 mean: 59.5 cm/sec LV V1 VTI: 23.1 cm ECHO/Echo Complete Interpretation Summary The left ventricular ejection fraction is 60 %. Normal LV size. Mild (1+) eccentric mitral valve insufficiency. Stage 1 diastolic dysfunction. Ordering Physician: Nikky Tabor Referring Physician: Nikky Tabor Performed By: Rohit Ornelas RCS
== END | disposition home or self-care (01) ==
LOC: CVS 12:46
PROVIDERS: PCP Internal Medicine; Referring Provider Internal Medicine; Visit Provider Internal Medicine
DX: R94.31 Abnormal electrocardiogram [ECG] [EKG] (principal); I49.9 Cardiac arrhythmia, unspecified
CPT/HCPCS: 93306